=== PATIENT | male | born 1970 ===

== ENCOUNTER 2016-10-21 11:14 | Observation (INO) | payer OTHER ==
[2016-10-21 11:16] VITALS: BMI 29.0
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
[2016-10-21 12:58] LABS: BASO # 0.1 K/uL (0.0-0.2); BASO % 0.9 % (0.0-2.0); EOS # 0.1 K/uL (0.0-0.7); EOS % 2.2 % (0.0-4.0); HEMATOCRIT 38.3 % (35.0-51.0); LYMPH # 1.7 K/uL (1.0-4.3); LYMPH % 25.6 % (20.0-40.0); MEAN CELL VOLUME 96.7 fL (80.0-94.0); MEAN CORPUSCULAR HEMOGLOBIN 31.7 pg (27.0-31.0); MEAN CORPUSCULAR HGB CONC 32.8 g/dL (33.0-37.0); MEAN PLATELET VOLUME 7.9 fL (7.2-11.7); MONO # 0.5 K/uL (0.0-0.8); MONO % 7.4 % (0.0-10.0); NRBC % 0.1 % (0.0-2.0); RED CELL DISTRIBUTION WIDTH 14.7 % (11.5-14.5); WHITE BLOOD COUNT 6.6 K/uL (4.8-10.8)
[2016-10-21 13:10] LABS: CHLORIDE 88 mmol/L (98-107); POTASSIUM 3.8 mmol/L (3.6-5.2); SODIUM 135 mmol/L (132-148)
[2016-10-21 13:12] LABS: ALB/GLOB RATIO 1.1 (1.0-2.1); AST/SGOT 31 U/L (17-59); BILIRUBIN,TOTAL 0.9 mg/dL (0.2-1.3); CARBON DIOXIDE 30 mmol/L (22-30); GFR AFRICAN-AMERICAN 8; TOTAL PROTEIN 8.5 g/dL (6.3-8.3)
[2016-10-21 13:13] LABS: ALKALINE PHOSPHATASE 81 U/L (38-126); ALT/SGPT 19 U/L (21-72); BLOOD UREA NITROGEN 38 mg/dL (9-20); GLUCOSE,RANDOM 79 mg/dL (75-110)
--- NOTE | 2016-10-21 13:39 | RAD ---
HISTORY: abd pain COMPARISON: Comparison is made to previous study dated 08/05/2016 TECHNIQUE: Chest PA and lateral FINDINGS: LUNGS: No active pulmonary disease. PLEURA: No significant pleural effusion identified. No pneumothorax apparent. CARDIOVASCULAR: Normal. OSSEOUS STRUCTURES: No significant abnormalities. VISUALIZED UPPER ABDOMEN: Normal. OTHER FINDINGS: None. IMPRESSION: No active disease.
[2016-10-21] MEDS ORDERED: Bacitracin 500 Units/gm Oint Foilpak UD TOP ONE (14:08)
--- NOTE | 2016-10-21 15:18 | US ---
Abdominal ultrasound History: Abdominal pain. Comparison: Renal ultrasound dated 08/05/2016 Technique: Real-time sonography was performed through the abdomen. Findings: Liver: 12.6 centimeters in length. Increased echogenicity suggestive for fatty infiltration versus hepatic parenchymal disease. Gallbladder: Within normal limits. Normal wall thickness of 2.7 millimeters. Common bile duct measures 4 millimeters, within normal limits. Pancreas not well visualized. Heterogeneous appearance of the pancreas. Pancreatic tail not well visualized. Spleen measures 12.2 centimeters in length, within normal limits. Visualized aorta and IVC are preserved. Right kidney: Enlarged measuring 19.0 x 10.1 x 11.3 centimeters. Severe hydronephrosis with cortical parenchymal thinning noted. In comparison to the prior studies, there is a persistent prominent calculus/staghorn calculus seen in the midpole of the right kidney measuring up to 1.9 centimeters. Additional calculi measure up to 1.[address] scan may be helpful if clinically indicated. Left Kidney: Prior nephrectomy. Impression: Enlargement of the right kidney measuring up to 19 centimeters with associated severe hydronephrosis and cortical parenchymal thinning. In comparison to the prior study, there are persistent prominent calculi/staghorn calculi present as described above. Correlation with CT scan may be helpful if clinically indicated. Diffuse increased echogenicity of the hepatic parenchyma suggestive for hepatic parenchymal disease versus fatty infiltration. Clinical correlation. Pancreas not well visualized. Clinical correlation. Prior left nephrectomy.
[2016-10-21 16:17] VITALS: RESP 20
[2016-10-21] MEDS: Oxycodone/Acetaminophen 5/325 mg Tab PO PRN (18:46)
[2016-10-21] MEDS: oxyCODONE 20 mg ER Tab (oxyCONTIN) PO SCH (21:54)
[2016-10-22] MEDS: Oxycodone/Acetaminophen 5/325 mg Tab PO PRN ×2 (05:09→14:15)
[2016-10-22] MEDS: oxyCODONE 20 mg ER Tab (oxyCONTIN) PO SCH (09:24)
[2016-10-22] MEDS ORDERED: NIFEdipine 60 mg ER Tab PO SCH (10:00)
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
[2016-10-22 13:43] VITALS: O2SAT 96
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
[2016-10-22 16:05] VITALS: BP 123/68; PULSE 76; TEMP 98.6
--- NOTE | 2016-10-22 16:57 | CP.PCM.PN ---
Subjective - Date & Time of Evaluation Date of Evaluation: 10/22/16 Time of Evaluation: 11:00 - Subjective Subjective: Alert and oriented x3, NAD. Objective - Vital Signs/Intake and Output Vital Signs (last 24 hours): Temp Pulse Resp BP Pulse Ox 98.6 F 76 20 123/68 96 10/22/16 16:04 10/22/16 16:04 10/22/16 16:04 10/22/16 16:04 10/22/16 16:04 - Medications Medications: Current Medications Heparin Sodium (Porcine) (Heparin) 5,000 units SC Q12 [facility] Last Admin: 10/22/16 10:00 Dose: Not Given Oxycodone HCl (Oxycontin Extended Release Tab) 20 mg PO Q12 [facility] Last Admin: 10/22/16 09:24 Dose: 20 mg Oxycodone/Acetaminophen (Percocet 5/325 Mg Tab) 1 tab PO Q6H PRN PRN Reason: Pain, moderate (4-7) Stop: 10/24/16 17:09 Last Admin: 10/22/16 14:15 Dose: 1 tab Sevelamer Carbonate (Renvela) 2,400 mg PO TID [facility] Last Admin: 10/22/16 14:13 Dose: 2,400 mg Tamsulosin HCl (Flomax) 0.4 mg PO DAILY [facility] Last Admin: 10/22/16 10:00 Dose: Not Given Assessment and Plan - Assessment and Plan (Free Text) Assessment: Patient is seen and examined, no sob or chest pains, no acute distress. Seen by DR Marc, cleared for discharge home today. Added percocet and neurontin for pain management. T follow up in the office in 1 week.
--- NOTE | 2016-10-22 17:34 | CP.PCM.PN ---
Subjective - Date & Time of Evaluation Date of Evaluation: 10/22/16 Time of Evaluation: 10:43 - Subjective Subjective: pt was seen and examined, feels better, decreased pain. Objective - Vital Signs/Intake and Output Vital Signs (last 24 hours): Temp Pulse Resp BP Pulse Ox 98.6 F 76 20 123/68 96 10/22/16 16:04 10/22/16 16:04 10/22/16 16:04 10/22/16 16:04 10/22/16 16:04 - Medications Medications: Current Medications Heparin Sodium (Porcine) (Heparin) 5,000 units SC Q12 [facility] Last Admin: 10/22/16 10:00 Dose: Not Given Oxycodone HCl (Oxycontin Extended Release Tab) 20 mg PO Q12 [facility] Last Admin: 10/22/16 09:24 Dose: 20 mg Oxycodone/Acetaminophen (Percocet 5/325 Mg Tab) 1 tab PO Q6H PRN PRN Reason: Pain, moderate (4-7) Stop: 10/24/16 17:09 Last Admin: 10/22/16 14:15 Dose: 1 tab Sevelamer Carbonate (Renvela) 2,400 mg PO TID [facility] Last Admin: 10/22/16 14:13 Dose: 2,400 mg Tamsulosin HCl (Flomax) 0.4 mg PO DAILY [facility] Last Admin: 10/22/16 10:00 Dose: Not Given - Constitutional Appears: No Acute Distress - Head Exam Head Exam: ATRAUMATIC, NORMAL INSPECTION, NORMOCEPHALIC - Eye Exam Eye Exam: EOMI, Normal appearance, PERRL Pupil Exam: NORMAL ACCOMODATION, PERRL - Respiratory Exam Respiratory Exam: Clear to Ausculation Bilateral, NORMAL BREATHING PATTERN - Cardiovascular Exam Cardiovascular Exam: REGULAR RHYTHM, +S1, +S2. absent: Murmur Assessment and Plan (1) Gastroenteritis Status: Acute (2) Abdominal pain Status: Acute (3) Dizziness Status: Acute (4) Hepatitis C antibody positive in blood Status: Chronic - Assessment and Plan (Free Text) Plan: plan for discharge no etiology of back pain determined
--- NOTE | 2016-10-25 19:12 | CARD ---
APPROVED REPORT EKG Measurement Heart [id number] <Conclusion> Poor data quality, interpretation may be adversely affected Normal sinus rhythm Normal ECG
== END 2016-10-22 18:39 | disposition home or self-care (01) ==
LOC: C.ER 11:14 → C.6T 15:44
PROVIDERS: ADMIT Internal Medicine; ATTEND Internal Medicine
DX: K52.9 Noninfective gastroenteritis and colitis, unspecified (principal); R11.2 Nausea with vomiting, unspecified; N18.6 End stage renal disease; E21.3 Hyperparathyroidism, unspecified; Z87.442 Personal history of urinary calculi
CPT/HCPCS: 36415; 71020; 76700; 80053; 83690; 84484; 85025; 86705; 86706; 87340; 96374; 99285; G0378

== ENCOUNTER 2017-04-19 19:38 | Inpatient (IN) | payer OTHER ==
[2017-04-19 19:38] VITALS: BMI 29.0
[2017-04-19 20:18] LABS: RBC URINE 37 /hpf (0-3); URINE BACTERIA MOD (<OCC); URINE BILIRUBIN NEGATIVE (NEGATIVE); URINE BLOOD 2+ (NEGATIVE); URINE COLOR Yellow (YELLOW); URINE GLUCOSE (UA) NORMAL (Normal); URINE KETONE NEGATIVE (NEGATIVE); URINE LEUKOCYTE ESTERASE 3+ Leu/uL (Negative); URINE PROTEIN 2+ mg/dL (NEGATIVE); URINE UROBILINOGEN NORMAL mg/dL (0.2-1.0); WBC URINE 1129 /hpf (0-5)
[2017-04-19] MEDS ORDERED: cefTRIAXone IV 1 gm in Dextros 50 ML IVPB ONE (20:28)
[2017-04-19 20:50] LABS: BASO # 0.1 K/uL (0.0-0.2); BASO % 0.9 % (0.0-2.0); EOS # 0.2 K/uL (0.0-0.7); EOS % 3.6 % (0.0-4.0); HEMATOCRIT 30.1 % (35.0-51.0); LYMPH # 1.8 K/uL (1.0-4.3); LYMPH % 32.1 % (20.0-40.0); MEAN CELL VOLUME 93.5 fL (80.0-94.0); MEAN CORPUSCULAR HEMOGLOBIN 30.8 pg (27.0-31.0); MEAN PLATELET VOLUME 6.9 fL (7.2-11.7); MONO # 0.5 K/uL (0.0-0.8); MONO % 9.2 % (0.0-10.0); RED CELL DISTRIBUTION WIDTH 14.4 % (11.5-14.5); WHITE BLOOD COUNT 5.5 K/uL (4.8-10.8)
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
[2017-04-19 20:59] LABS: POTASSIUM 4.2 mmol/L (3.6-5.2)
[2017-04-19 21:02] LABS: BILIRUBIN,TOTAL 0.9 mg/dL (0.2-1.3); CALCIUM 8.7 mg/dl (8.6-10.4); TOTAL PROTEIN 7.2 g/dL (6.3-8.3)
[2017-04-19] MEDS ORDERED: Oxycodone/Acetaminophen 5/325 mg Tab PO STA (23:26)
[2017-04-19] MEDS ORDERED: Oxycodone/Acetaminophen 5/325 mg Tab ONE (23:30)
[2017-04-20] MEDS: Oxycodone/Acetaminophen 5/325 mg Tab PO PRN ×3 (05:24→19:56)
[2017-04-20] MEDS: Pantoprazole 40 mg EC Tab PO SCH (10:12)
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
[2017-04-20 17:54] LABS: POTASSIUM 4.5 mmol/L (3.6-5.2)
[2017-04-20 17:57] LABS: CALCIUM 8.6 mg/dl (8.6-10.4); PHOSPHOROUS 9.2 mg/dL (2.5-4.5)
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
[2017-04-21] MEDS: Oxycodone/Acetaminophen 5/325 mg Tab PO PRN ×3 (08:19→21:29)
[2017-04-21] MEDS: Pantoprazole 40 mg EC Tab PO SCH (10:12)
--- NOTE | 2017-04-21 15:29 | CP.PCM.PN ---
Subjective - Date & Time of Evaluation Date of Evaluation: 04/21/17 Time of Evaluation: 15:27 - Subjective Subjective: stable dialysis 04/20- UF 2000 ml phos very elevated no fevers, chills, n, v, diarrhea. CPs, SOB no new events tolerating dialysis Objective - Vital Signs/Intake and Output Vital Signs (last 24 hours): Temp Pulse Resp BP Pulse Ox 98.2 F 71 20 141/63 96 04/21/17 08:03 04/21/17 08:03 04/21/17 08:03 04/21/17 08:03 04/21/17 08:03 Intake and Output: 04/21/17 04/21/17 06:59 18:59 Intake Total 250 0 Balance 250 0 - Medications Medications: Current Medications Calcium Acetate (Phoslo) 1,334 mg PO TID [facility] Heparin Sodium (Porcine) (Heparin) 5,000 units SC Q8 [facility] Last Admin: 04/21/17 14:34 Dose: 5,000 units Ceftriaxone Sodium 1 gm/ (Dextrose) 100 mls @ 100 mls/hr IVPB DAILY [facility] Last Admin: 04/21/17 10:12 Dose: 100 mls/hr Ondansetron HCl (Zofran Inj) 4 mg IVP Q8H PRN PRN Reason: Nausea/Vomiting Last Admin: 04/20/17 18:03 Dose: 4 mg Oxycodone/Acetaminophen (Percocet 5/325 Mg Tab) 2 tab PO Q4 PRN PRN Reason: pain Stop: 04/23/17 12:01 Last Admin: 04/21/17 08:19 Dose: 2 tab Pantoprazole Sodium (Protonix Ec Tab) 40 mg PO DAILY [facility] Last Admin: 04/21/17 10:12 Dose: 40 mg Sevelamer Carbonate (Renvela) 1,600 mg PO TID [facility] Last Admin: 04/21/17 14:34 Dose: 1,600 mg Tamsulosin HCl (Flomax) 0.4 mg PO DAILY [facility] Last Admin: 04/21/17 10:12 Dose: 0.4 mg - Labs Labs: 04/19/17 20:42 04/20/17 17:43 - Constitutional Appears: No Acute Distress, Chronically Ill - Head Exam Head Exam: ATRAUMATIC, NORMAL INSPECTION - Eye Exam Eye Exam: EOMI, Normal appearance - Neck Exam Neck Exam: Normal Inspection. absent: Tenderness - Respiratory Exam Respiratory Exam: Clear to Ausculation Bilateral, NORMAL BREATHING PATTERN - Cardiovascular Exam Cardiovascular Exam: REGULAR RHYTHM, +S1 - GI/Abdominal Exam GI & Abdominal Exam: Soft. absent: Tenderness - Extremities Exam Extremities Exam: Normal Inspection. absent: Tenderness - Neurological Exam Neurological Exam: Alert, CN II-XII Intact - Skin Skin Exam: Dry, Warm Assessment and Plan (1) Xanthogranulomatous pyelonephritis Status: Acute (2) Hepatitis C antibody positive in blood Status: Chronic (3) ESRD (end stage renal disease) Status: Acute - Assessment and Plan (Free Text) Plan: Continue same dialysis TTS IV ABs Increase binders
--- NOTE | 2017-04-21 21:57 | CP.PCM.PN ---
Subjective - Date & Time of Evaluation Date of Evaluation: 04/21/17 Time of Evaluation: 20:00 - Subjective Subjective: Pt seen and examined, urine analysis was positive for gram neg bacilli, waiting for sensitivity report, meantime he is on rocephin.c/o flank pain however no nausea/vomiting Objective - Vital Signs/Intake and Output Vital Signs (last 24 hours): Temp Pulse Resp BP Pulse Ox 98.4 F 61 20 131/64 97 04/21/17 15:00 04/21/17 15:00 04/21/17 15:00 04/21/17 15:00 04/21/17 15:00 Intake and Output: 04/21/17 04/22/17 18:59 06:59 Intake Total 0 Balance 0 - Medications Medications: Current Medications Calcium Acetate (Phoslo) 1,334 mg PO TID [facility] Last Admin: 04/21/17 17:39 Dose: 1,334 mg Heparin Sodium (Porcine) (Heparin) 5,000 units SC Q8 [facility] Last Admin: 04/21/17 21:24 Dose: 5,000 units Ceftriaxone Sodium 1 gm/ (Dextrose) 100 mls @ 100 mls/hr IVPB DAILY [facility] Last Admin: 04/21/17 10:12 Dose: 100 mls/hr Ondansetron HCl (Zofran Inj) 4 mg IVP Q8H PRN PRN Reason: Nausea/Vomiting Last Admin: 04/21/17 16:47 Dose: 4 mg Oxycodone/Acetaminophen (Percocet 5/325 Mg Tab) 2 tab PO Q4 PRN PRN Reason: pain Stop: 04/23/17 12:01 Last Admin: 04/21/17 21:29 Dose: 2 tab Pantoprazole Sodium (Protonix Ec Tab) 40 mg PO DAILY [facility] Last Admin: 04/21/17 10:12 Dose: 40 mg Sevelamer Carbonate (Renvela) 1,600 mg PO TID [facility] Last Admin: 04/21/17 17:39 Dose: 1,600 mg Tamsulosin HCl (Flomax) 0.4 mg PO DAILY [facility] Last Admin: 04/21/17 10:12 Dose: 0.4 mg - Labs Labs: 04/19/17 20:42 04/20/17 17:43 - Constitutional Appears: No Acute Distress - Head Exam Head Exam: ATRAUMATIC, NORMAL INSPECTION, NORMOCEPHALIC - Eye Exam Eye Exam: EOMI, Normal appearance, PERRL Pupil Exam: NORMAL ACCOMODATION, PERRL - Respiratory Exam Respiratory Exam: Clear to Ausculation Bilateral, NORMAL BREATHING PATTERN - Cardiovascular Exam Cardiovascular Exam: REGULAR RHYTHM, +S1, +S2. absent: Murmur - GI/Abdominal Exam GI & Abdominal Exam: Soft, Normal Bowel Sounds. absent: Tenderness - Rectal Exam Rectal Exam: Deferred Assessment and Plan (1) ESRD (end stage renal disease) Status: Acute (2) Pyelonephritis, acute Status: Acute (3) Abdominal pain Status: Acute (4) CKD (chronic kidney disease) Status: Acute
[2017-04-22] MEDS: Oxycodone/Acetaminophen 5/325 mg Tab PO PRN ×3 (08:11→21:13)
[2017-04-22] MEDS ORDERED: Influenza Vaccine 60 mcg/0.5 mL SYR (4YR UP) IM ONE (10:00)
[2017-04-22] MEDS ORDERED: Pneumococcal 23-Valent Vaccine IM ONE (10:00)
[2017-04-22] MEDS: Pantoprazole 40 mg EC Tab PO SCH (10:48)
--- NOTE | 2017-04-22 11:13 | CP.PCM.PN ---
Subjective - Date & Time of Evaluation Date of Evaluation: 04/22/17 Time of Evaluation: 11:00 - Subjective Subjective: nauseated,? due to pain meds deferring HD to later in day uncooperative with questions ROS cannot be obtained due to above Objective - Vital Signs/Intake and Output Vital Signs (last 24 hours): Temp Pulse Resp BP Pulse Ox 98.4 F 69 20 147/74 98 04/22/17 07:46 04/22/17 07:46 04/22/17 07:46 04/22/17 07:46 04/22/17 07:46 Intake and Output: 04/22/17 04/22/17 06:59 18:59 Intake Total 200 Balance 200 - Medications Medications: Current Medications Calcium Acetate (Phoslo) 1,334 mg PO TID [facility] Last Admin: 04/22/17 10:48 Dose: 1,334 mg Heparin Sodium (Porcine) (Heparin) 5,000 units SC Q8 [facility] Last Admin: 04/22/17 07:00 Dose: 5,000 units Ceftriaxone Sodium 1 gm/ (Dextrose) 100 mls @ 100 mls/hr IVPB DAILY [facility] Last Admin: 04/22/17 10:51 Dose: 100 mls/hr Ondansetron HCl (Zofran Inj) 4 mg IVP Q8H PRN PRN Reason: Nausea/Vomiting Last Admin: 04/22/17 08:10 Dose: 4 mg Oxycodone/Acetaminophen (Percocet 5/325 Mg Tab) 2 tab PO Q4 PRN PRN Reason: pain Stop: 04/23/17 12:01 Last Admin: 04/22/17 08:11 Dose: 2 tab Pantoprazole Sodium (Protonix Ec Tab) 40 mg PO DAILY [facility] Last Admin: 04/22/17 10:48 Dose: 40 mg Sevelamer Carbonate (Renvela) 1,600 mg PO TID [facility] Last Admin: 04/22/17 10:48 Dose: 1,600 mg Tamsulosin HCl (Flomax) 0.4 mg PO DAILY [facility] Last Admin: 04/22/17 10:48 Dose: 0.4 mg - Labs Labs: 04/19/17 20:42 04/20/17 17:43 - Constitutional Appears: No Acute Distress, Chronically Ill - Head Exam Head Exam: ATRAUMATIC - Eye Exam Eye Exam: EOMI - Respiratory Exam Respiratory Exam: Clear to Ausculation Bilateral. absent: Accessory Muscle Use - Cardiovascular Exam Cardiovascular Exam: REGULAR RHYTHM. absent: Rubs - GI/Abdominal Exam GI & Abdominal Exam: Soft, Normal Bowel Sounds. absent: Tenderness - Extremities Exam Extremities Exam: absent: Pedal Edema - Neurological Exam Neurological Exam: Alert Assessment and Plan - Assessment and Plan (Free Text) Assessment: chronic pyelonephritis on AB HD today anti emetic being given
--- NOTE | 2017-04-22 23:31 | CP.PCM.PN ---
Subjective - Date & Time of Evaluation Date of Evaluation: 04/22/17 Time of Evaluation: 19:00 - Subjective Subjective: Pt seen and examined at bedside, nauseated,? due to pain meds deferring HD to later in day uncooperative with questions ROS cannot be obtained due to above Objective - Vital Signs/Intake and Output Vital Signs (last 24 hours): Temp Pulse Resp BP Pulse Ox 98.8 F 57 L 20 117/55 L 100 04/22/17 17:00 04/22/17 17:00 04/22/17 17:00 04/22/17 17:00 04/22/17 17:00 Intake and Output: 04/22/17 04/23/17 18:59 06:59 Intake Total 580 450 Balance 580 450 - Medications Medications: Current Medications Calcium Acetate (Phoslo) 1,334 mg PO TID [facility] Last Admin: 04/22/17 18:09 Dose: 1,334 mg Heparin Sodium (Porcine) (Heparin) 5,000 units SC Q8 [facility] Last Admin: 04/22/17 21:17 Dose: 5,000 units Ceftriaxone Sodium 1 gm/ (Dextrose) 100 mls @ 100 mls/hr IVPB DAILY [facility] Last Admin: 04/22/17 10:51 Dose: 100 mls/hr Ondansetron HCl (Zofran Inj) 4 mg IVP Q8H PRN PRN Reason: Nausea/Vomiting Last Admin: 04/22/17 08:10 Dose: 4 mg Oxycodone/Acetaminophen (Percocet 5/325 Mg Tab) 2 tab PO Q4 PRN PRN Reason: pain Stop: 04/23/17 12:01 Last Admin: 04/22/17 21:13 Dose: 2 tab Pantoprazole Sodium (Protonix Ec Tab) 40 mg PO DAILY [facility] Last Admin: 04/22/17 10:48 Dose: 40 mg Sevelamer Carbonate (Renvela) 1,600 mg PO TID [facility] Last Admin: 04/22/17 18:09 Dose: 1,600 mg Tamsulosin HCl (Flomax) 0.4 mg PO DAILY [facility] Last Admin: 04/22/17 10:48 Dose: 0.4 mg - Labs Labs: 04/19/17 20:42 04/20/17 17:43 Assessment and Plan (1) ESRD (end stage renal disease) Status: Acute (2) Pyelonephritis, acute Status: Acute (3) Abdominal pain Status: Acute (4) CKD (chronic kidney disease) Status: Acute
[2017-04-23] MEDS: Oxycodone/Acetaminophen 5/325 mg Tab PO PRN ×3 (10:05→20:27)
[2017-04-23] MEDS: Pantoprazole 40 mg EC Tab PO SCH (10:07)
--- NOTE | 2017-04-23 23:38 | CP.PCM.PN ---
Subjective - Date & Time of Evaluation Date of Evaluation: 04/23/17 Time of Evaluation: 19:00 - Subjective Subjective: Pt seen & examined at bedside, still c/o flank pain Objective - Vital Signs/Intake and Output Vital Signs (last 24 hours): Temp Pulse Resp BP Pulse Ox 97.9 F 65 20 129/55 L 96 04/23/17 15:00 04/23/17 15:00 04/23/17 15:00 04/23/17 15:00 04/23/17 15:00 Intake and Output: 04/23/17 04/24/17 18:59 06:59 Intake Total 580 400 Balance 580 400 - Medications Medications: Current Medications Calcium Acetate (Phoslo) 1,334 mg PO TID [facility] Last Admin: 04/23/17 18:35 Dose: 1,334 mg Ondansetron HCl (Zofran Inj) 4 mg IVP Q8H PRN PRN Reason: Nausea/Vomiting Last Admin: 04/23/17 17:41 Dose: 4 mg Oxycodone/Acetaminophen (Percocet 5/325 Mg Tab) 2 tab PO Q4H PRN PRN Reason: Pain, moderate (4-7) Stop: 04/26/17 16:14 Last Admin: 04/23/17 20:27 Dose: 2 tab Pantoprazole Sodium (Protonix Ec Tab) 40 mg PO DAILY [facility] Last Admin: 04/23/17 10:07 Dose: 40 mg Sevelamer Carbonate (Renvela) 1,600 mg PO TID [facility] Last Admin: 04/23/17 18:35 Dose: 1,600 mg Tamsulosin HCl (Flomax) 0.4 mg PO DAILY [facility] Last Admin: 04/23/17 10:08 Dose: 0.4 mg - Labs Labs: 04/19/17 20:42 04/20/17 17:43 Assessment and Plan (1) ESRD (end stage renal disease) Status: Acute (2) Pyelonephritis, acute Status: Acute (3) Abdominal pain Status: Acute (4) CKD (chronic kidney disease) Status: Acute
[2017-04-24] MEDS: Oxycodone/Acetaminophen 5/325 mg Tab PO PRN ×5 (00:35→21:52)
[2017-04-24] MEDS: Pantoprazole 40 mg EC Tab PO SCH (09:32)
--- NOTE | 2017-04-24 11:53 | CP.PCM.PN ---
Subjective - Date & Time of Evaluation Date of Evaluation: 04/24/17 Time of Evaluation: 11:50 - Subjective Subjective: Still c/o nausea, likely from pain meds Remains afebrile. Offering new complaints phos has been high- on high doses binders dialysis due in AM Objective - Vital Signs/Intake and Output Vital Signs (last 24 hours): Temp Pulse Resp BP Pulse Ox 98 F 64 20 124/60 97 04/24/17 07:35 04/24/17 07:35 04/24/17 07:35 04/24/17 07:35 04/24/17 07:35 Intake and Output: 04/24/17 04/24/17 06:59 18:59 Intake Total 700 Balance 700 - Medications Medications: Current Medications Calcium Acetate (Phoslo) 1,334 mg PO TID [facility] Last Admin: 04/24/17 09:32 Dose: 1,334 mg Ondansetron HCl (Zofran Inj) 4 mg IVP Q8H PRN PRN Reason: Nausea/Vomiting Last Admin: 04/23/17 17:41 Dose: 4 mg Oxycodone/Acetaminophen (Percocet 5/325 Mg Tab) 2 tab PO Q4H PRN PRN Reason: Pain, moderate (4-7) Stop: 04/26/17 16:14 Last Admin: 04/24/17 08:11 Dose: 2 tab Pantoprazole Sodium (Protonix Ec Tab) 40 mg PO DAILY [facility] Last Admin: 04/24/17 09:32 Dose: 40 mg Sevelamer Carbonate (Renvela) 1,600 mg PO TID [facility] Last Admin: 04/24/17 09:32 Dose: 1,600 mg Tamsulosin HCl (Flomax) 0.4 mg PO DAILY [facility] Last Admin: 04/24/17 09:32 Dose: 0.4 mg - Labs Labs: 04/19/17 20:42 04/20/17 17:43 - Constitutional Appears: No Acute Distress, Chronically Ill - Head Exam Head Exam: ATRAUMATIC, NORMAL INSPECTION - Eye Exam Eye Exam: EOMI, Normal appearance - Neck Exam Neck Exam: Normal Inspection. absent: Tenderness - Respiratory Exam Respiratory Exam: Clear to Ausculation Bilateral, NORMAL BREATHING PATTERN - Cardiovascular Exam Cardiovascular Exam: REGULAR RHYTHM, +S1 - GI/Abdominal Exam GI & Abdominal Exam: Soft. absent: Tenderness - Extremities Exam Extremities Exam: Normal Inspection. absent: Tenderness - Neurological Exam Neurological Exam: Alert, CN II-XII Intact - Psychiatric Exam Psychiatric exam: Depressed, Flat Affect - Skin Skin Exam: Dry, Warm Assessment and Plan (1) Xanthogranulomatous pyelonephritis Status: Acute (2) Hepatitis C antibody positive in blood Status: Chronic (3) ESRD (end stage renal disease) Status: Acute - Assessment and Plan (Free Text) Plan: Recheck chemistries dialysis in AM zofran prn
[2017-04-24] MEDS: Bisacodyl 5mg EC Tab PO SCH (21:54)
--- NOTE | 2017-04-24 22:32 | CP.PCM.PN ---
Subjective - Date & Time of Evaluation Date of Evaluation: 04/24/17 Time of Evaluation: 21:00 - Subjective Subjective: Pt seen and examined, c/o flank pain, and cloudy urine, cultures are positive sensitivity pending .pt is for Ct abdomen and urology consult Objective - Vital Signs/Intake and Output Vital Signs (last 24 hours): Temp Pulse Resp BP Pulse Ox 98.2 F 62 20 126/70 98 04/24/17 15:00 04/24/17 15:00 04/24/17 15:00 04/24/17 15:00 04/24/17 15:00 Intake and Output: 04/24/17 04/25/17 18:59 06:59 Intake Total 500 Balance 500 - Medications Medications: Current Medications Bisacodyl (Dulcolax) 10 mg PO HS [facility] Last Admin: 04/24/17 21:54 Dose: 10 mg Calcium Acetate (Phoslo) 1,334 mg PO TID [facility] Last Admin: 04/24/17 17:27 Dose: 1,334 mg Docusate Sodium (Colace) 100 mg PO BID [facility] Last Admin: 04/24/17 17:28 Dose: 100 mg Ondansetron HCl (Zofran Inj) 4 mg IVP Q8H PRN PRN Reason: Nausea/Vomiting Last Admin: 04/24/17 17:30 Dose: 4 mg Oxycodone/Acetaminophen (Percocet 5/325 Mg Tab) 2 tab PO Q4H PRN PRN Reason: Pain, moderate (4-7) Stop: 04/26/17 16:14 Last Admin: 04/24/17 21:52 Dose: 2 tab Pantoprazole Sodium (Protonix Ec Tab) 40 mg PO DAILY [facility] Last Admin: 04/24/17 09:32 Dose: 40 mg Sevelamer Carbonate (Renvela) 1,600 mg PO TID [facility] Last Admin: 04/24/17 17:27 Dose: 1,600 mg Tamsulosin HCl (Flomax) 0.4 mg PO DAILY [facility] Last Admin: 04/24/17 09:32 Dose: 0.4 mg - Labs Labs: 04/19/17 20:42 04/20/17 17:43 - Constitutional Appears: No Acute Distress - Head Exam Head Exam: ATRAUMATIC, NORMAL INSPECTION, NORMOCEPHALIC - Respiratory Exam Respiratory Exam: Clear to Ausculation Bilateral, NORMAL BREATHING PATTERN - Cardiovascular Exam Cardiovascular Exam: REGULAR RHYTHM, +S1, +S2. absent: Murmur - GI/Abdominal Exam GI & Abdominal Exam: Soft, Normal Bowel Sounds. absent: Tenderness Assessment and Plan (1) ESRD (end stage renal disease) Status: Acute (2) Pyelonephritis, acute Status: Acute (3) Abdominal pain Status: Acute (4) CKD (chronic kidney disease) Status: Acute - Assessment and Plan (Free Text) Plan: for CT abdomen contrast uronlogy consult
[2017-04-25] MEDS: Oxycodone/Acetaminophen 5/325 mg Tab PO PRN ×4 (02:20→19:22)
[2017-04-25 08:27] LABS: POTASSIUM 4.8 mmol/L (3.6-5.2)
[2017-04-25 08:30] LABS: ALB/GLOB RATIO 1.1 (1.0-2.1); BASO # 0.1 K/uL (0.0-0.2); BASO % 1.2 % (0.0-2.0); BILIRUBIN,TOTAL 0.6 mg/dL (0.2-1.3); EOS # 0.3 K/uL (0.0-0.7); EOS % 5.5 % (0.0-4.0); HEMATOCRIT 30.6 % (35.0-51.0); LYMPH # 1.8 K/uL (1.0-4.3); LYMPH % 33.7 % (20.0-40.0); MEAN CELL VOLUME 93.9 fL (80.0-94.0); MEAN CORPUSCULAR HEMOGLOBIN 31.2 pg (27.0-31.0); MEAN CORPUSCULAR HGB CONC 33.2 g/dL (33.0-37.0); MEAN PLATELET VOLUME 7.8 fL (7.2-11.7); MONO # 0.4 K/uL (0.0-0.8); MONO % 7.4 % (0.0-10.0); NRBC % 0.1 % (0.0-2.0); PHOSPHOROUS 6.2 mg/dL (2.5-4.5); RED CELL DISTRIBUTION WIDTH 14.4 % (11.5-14.5); TOTAL PROTEIN 6.5 g/dL (6.3-8.3); WHITE BLOOD COUNT 5.2 K/uL (4.8-10.8)
[2017-04-25 08:31] LABS: CALCIUM 8.9 mg/dl (8.6-10.4)
[2017-04-25 08:32] LABS: RBC URINE 55 /hpf (0-3); URINE BACTERIA RARE (<OCC); URINE BILIRUBIN NEGATIVE (NEGATIVE); URINE BLOOD 2+ (NEGATIVE); URINE COLOR Yellow (YELLOW); URINE GLUCOSE (UA) NORMAL (Normal); URINE KETONE NEGATIVE (NEGATIVE); URINE LEUKOCYTE ESTERASE 3+ Leu/uL (Negative); URINE PROTEIN 2+ mg/dL (NEGATIVE); URINE UROBILINOGEN NORMAL mg/dL (0.2-1.0); WBC CLUMPS FEW /hpf; WBC URINE 471 /hpf (0-5)
[2017-04-25] MEDS ORDERED: Iohexol 240 (50 ml) PO ONE (09:00)
--- NOTE | 2017-04-25 11:05 | CP.PCM.PN ---
Subjective - Date & Time of Evaluation Date of Evaluation: 04/25/17 Time of Evaluation: 11:04 - Subjective Subjective: seen and examined c/o pain left flank c/o cramping after last dialysis +nausea no vomiting no fevers chills dizziness headache chest pain sob "fuzzy" urine Objective - Vital Signs/Intake and Output Vital Signs (last 24 hours): Temp Pulse Resp BP Pulse Ox 97.9 F 69 20 132/64 96 04/24/17 23:40 04/24/17 23:40 04/24/17 23:40 04/24/17 23:40 04/24/17 23:40 Intake and Output: 04/25/17 04/25/17 06:59 18:59 Intake Total 300 1740 Balance 300 1740 - Medications Medications: Current Medications Bisacodyl (Dulcolax) 10 mg PO HS [facility] Last Admin: 04/24/17 21:54 Dose: 10 mg Calcium Acetate (Phoslo) 1,334 mg PO TID [facility] Last Admin: 04/25/17 09:14 Dose: 1,334 mg Docusate Sodium (Colace) 100 mg PO BID [facility] Last Admin: 04/25/17 09:14 Dose: 100 mg Ondansetron HCl (Zofran Inj) 4 mg IVP Q8H PRN PRN Reason: Nausea/Vomiting Last Admin: 04/24/17 17:30 Dose: 4 mg Oxycodone/Acetaminophen (Percocet 5/325 Mg Tab) 2 tab PO Q4H PRN PRN Reason: Pain, moderate (4-7) Stop: 04/26/17 16:14 Last Admin: 04/25/17 06:59 Dose: 2 tab Pantoprazole Sodium (Protonix Ec Tab) 40 mg PO DAILY [facility] Last Admin: 04/24/17 09:32 Dose: 40 mg Sevelamer Carbonate (Renvela) 1,600 mg PO TID [facility] Last Admin: 04/25/17 09:14 Dose: 1,600 mg Tamsulosin HCl (Flomax) 0.4 mg PO DAILY [facility] Last Admin: 04/25/17 09:14 Dose: 0.4 mg - Labs Labs: 04/25/17 08:09 04/25/17 08:09 - Constitutional Appears: Non-toxic, No Acute Distress - Head Exam Head Exam: NORMAL INSPECTION - Eye Exam Eye Exam: Normal appearance, PERRL - ENT Exam ENT Exam: Mucous Membranes Moist, Normal Exam - Neck Exam Neck Exam: Normal Inspection - Respiratory Exam Respiratory Exam: Clear to Ausculation Bilateral, NORMAL BREATHING PATTERN - Cardiovascular Exam Cardiovascular Exam: REGULAR RHYTHM, RRR - GI/Abdominal Exam GI & Abdominal Exam: Distended, Soft, Normal Bowel Sounds - Extremities Exam Extremities Exam: Normal Inspection (lue avf w/ thrill) - Neurological Exam Neurological Exam: Alert, Awake, Normal Gait, Oriented x3 - Psychiatric Exam Psychiatric exam: Normal Affect, Normal Mood - Skin Skin Exam: Dry, Warm Assessment and Plan (1) Hyperphosphatemia Status: Acute (2) ESRD (end stage renal disease) Status: Acute (3) Xanthogranulomatous pyelonephritis Status: Acute (4) Abdominal pain Status: Acute (5) Calculus of kidney Status: Chronic (6) Hepatitis C antibody positive in blood Status: Chronic (7) Urinary tract infection Status: Suspected - Assessment and Plan (Free Text) Assessment: maintain hd tts renal diet and binders bp acceptable pain control hgb at goal f/u ct scan abdomen
[2017-04-25] MEDS: Pantoprazole 40 mg EC Tab PO SCH (11:12)
--- NOTE | 2017-04-25 13:33 | CT ---
PROCEDURE: CT Abdomen and Pelvis without IV contrast. HISTORY: nephrolithiasis COMPARISON: CT angio chest, pelvis performed 08/05/16, abdominal ultrasound performed 10/21/16 TECHNIQUE: Contiguous axial images of the abdomen and pelvis. Oral contrast was administered. No IV contrast given. Coronal and Sagittal reformats generated and reviewed. Radiation dose: Total exam DLP = 556.92 mGy-cm. This CT exam was performed using one or more of the following dose reduction techniques: Automated exposure control, adjustment of the mA and/or kV according to patient size, and/or use of iterative reconstruction technique. FINDINGS: There is limited evaluation of the solid organs without the administration of IV contrast. LOWER THORAX: Left basilar atelectasis. There is no visible pleural effusion or pneumothorax. LIVER: Unremarkable unenhanced appearance. GALLBLADDER AND BILE DUCTS: Unremarkable unenhanced appearance. PANCREAS: Unremarkable unenhanced appearance. SPLEEN: Unremarkable unenhanced appearance. ADRENALS: Unremarkable unenhanced appearance. KIDNEYS AND URETERS: Severe right-sided hydronephrosis. Large staghorn calculus measures approximately 3.2 x 4.1 cm. Additional calculus measuring approximately 12 mm. Several smaller calcifications are noted. The left kidney is not identified. BLADDER: Under distended urinary bladder limits evaluation. REPRODUCTIVE: Unremarkable. APPENDIX: The appendix appears within normal limits of caliber. No secondary signs of acute appendicitis. BOWEL: Ingested debris within the stomach limits evaluation. The bowel loops appear within normal limits of caliber without evidence of intestinal obstruction. Moderate to severe constipation. PERITONEUM: No significant free fluid. No definite free air. LYMPH NODES: No bulky lymphadenopathy identified. VASCULATURE: Atherosclerotic calcifications of the aorta and branches. No aortic aneurysm. BONES: Chronic appearing deformity and heterotopic ossification involving the right acetabulum and ischial tuberosity likely related to remote trauma. Nonspecific sclerotic focus within the right ileum. OTHER FINDINGS: None. IMPRESSION: Severe right-sided hydronephrosis. Large staghorn calculus measures approximately 3.2 x 4.1 cm. Additional calculus measuring approximately 12 mm. Several smaller calcifications are noted. The left kidney is not identified. Moderate to severe constipation.
[2017-04-25] MEDS ORDERED: Piperacill/Tazo 2.25gm in Dex 2.25 GM/50 ML BAG IVPB STA (19:33)
[2017-04-25] MEDS ORDERED: Piperacill/Tazo 2.25gm in Dex 2.25 GM/50 ML BAG IVPB SCH (19:45)
[2017-04-25] MEDS: Bisacodyl 5mg EC Tab PO SCH (21:39)
--- NOTE | 2017-04-25 23:06 | CP.PCM.PN ---
Subjective - Date & Time of Evaluation Date of Evaluation: 04/25/17 Time of Evaluation: 19:00 - Subjective Subjective: pt seen and examined,weak and lethargic, afebrile still complains of flank pain , acute pyenephrosis, obtain CT abdomen and pelvis and request ID eval Objective - Vital Signs/Intake and Output Vital Signs (last 24 hours): Temp Pulse Resp BP Pulse Ox 97.8 F 67 20 128/68 97 04/25/17 18:40 04/25/17 18:40 04/25/17 18:40 04/25/17 18:40 04/25/17 18:40 Intake and Output: 04/25/17 04/26/17 18:59 06:59 Intake Total 1740 Balance 1740 - Medications Medications: Current Medications Bisacodyl (Dulcolax) 10 mg PO HS [facility] Last Admin: 04/25/17 21:39 Dose: 10 mg Calcium Acetate (Phoslo) 1,334 mg PO TID [facility] Last Admin: 04/25/17 19:20 Dose: 1,334 mg Docusate Sodium (Colace) 100 mg PO BID [facility] Last Admin: 04/25/17 19:20 Dose: 100 mg Piperacillin Sod/Tazobactam Sod (Zosyn 2.25 Gm Iv Premix) 2.25 gm in 50 mls @ 100 mls/hr IVPB Q6H [facility] Ondansetron HCl (Zofran Inj) 4 mg IVP Q8H PRN PRN Reason: Nausea/Vomiting Last Admin: 04/24/17 17:30 Dose: 4 mg Oxycodone/Acetaminophen (Percocet 5/325 Mg Tab) 2 tab PO Q4H PRN PRN Reason: Pain, moderate (4-7) Stop: 04/26/17 16:14 Last Admin: 04/25/17 19:22 Dose: 2 tab Pantoprazole Sodium (Protonix Ec Tab) 40 mg PO DAILY [facility] Last Admin: 04/25/17 11:12 Dose: 40 mg Sevelamer Carbonate (Renvela) 1,600 mg PO TID [facility] Last Admin: 04/25/17 19:19 Dose: 1,600 mg Tamsulosin HCl (Flomax) 0.4 mg PO DAILY [facility] Last Admin: 04/25/17 09:14 Dose: 0.4 mg - Labs Labs: 04/25/17 08:09 04/25/17 08:09 - Constitutional Appears: No Acute Distress - Head Exam Head Exam: ATRAUMATIC, NORMAL INSPECTION, NORMOCEPHALIC - Eye Exam Eye Exam: EOMI, Normal appearance, PERRL Pupil Exam: NORMAL ACCOMODATION, PERRL - Respiratory Exam Respiratory Exam: Clear to Ausculation Bilateral, NORMAL BREATHING PATTERN - Cardiovascular Exam Cardiovascular Exam: +S1, +S2 - GI/Abdominal Exam GI & Abdominal Exam: Tenderness - Rectal Exam Rectal Exam: Deferred Assessment and Plan (1) ESRD (end stage renal disease) Status: Acute (2) Pyelonephritis, acute Status: Acute (3) Abdominal pain Status: Acute (4) CKD (chronic kidney disease) Status: Acute
[2017-04-26] MEDS: Oxycodone/Acetaminophen 5/325 mg Tab PO PRN ×4 (00:41→19:20)
[2017-04-26] MEDS: Piperacill/Tazo 2.25gm in Dex 2.25 GM/50 ML BAG IVPB SCH ×3 (01:17→14:14)
[2017-04-26] MEDS: Pantoprazole 40 mg EC Tab PO SCH (10:02)
--- NOTE | 2017-04-26 12:57 | CP.PCM.PN ---
Subjective - Date & Time of Evaluation Date of Evaluation: 04/26/17 Time of Evaluation: 12:54 - Subjective Subjective: stable dialysis 04/25- UF 1000ml; tolerating dialysis course well same left CVAT CT scan shows right kidney with staghorn calculi- pain though on left same pains, nausea has been afebrile Objective - Vital Signs/Intake and Output Vital Signs (last 24 hours): Temp Pulse Resp BP Pulse Ox 97.5 F L 70 20 138/72 98 04/26/17 07:50 04/26/17 07:50 04/26/17 07:50 04/26/17 07:50 04/26/17 07:50 Intake and Output: 04/26/17 04/26/17 06:59 18:59 Intake Total 290 Balance 290 - Medications Medications: Current Medications Bisacodyl (Dulcolax) 10 mg PO HS [facility] Last Admin: 04/25/17 21:39 Dose: 10 mg Calcium Acetate (Phoslo) 1,334 mg PO TID [facility] Last Admin: 04/26/17 10:02 Dose: 1,334 mg Docusate Sodium (Colace) 100 mg PO BID [facility] Last Admin: 04/26/17 10:02 Dose: 100 mg Piperacillin Sod/Tazobactam Sod (Zosyn 2.25 Gm Iv Premix) 2.25 gm in 50 mls @ 100 mls/hr IVPB Q6H [facility] Last Admin: 04/26/17 01:17 Dose: 100 mls/hr Ondansetron HCl (Zofran Inj) 4 mg IVP Q8H PRN PRN Reason: Nausea/Vomiting Last Admin: 04/26/17 02:30 Dose: 4 mg Oxycodone/Acetaminophen (Percocet 5/325 Mg Tab) 2 tab PO Q4H PRN PRN Reason: Pain, moderate (4-7) Stop: 04/26/17 16:14 Last Admin: 04/26/17 08:12 Dose: 2 tab Pantoprazole Sodium (Protonix Ec Tab) 40 mg PO DAILY [facility] Last Admin: 04/26/17 10:02 Dose: 40 mg Sevelamer Carbonate (Renvela) 1,600 mg PO TID [facility] Last Admin: 04/26/17 10:01 Dose: 1,600 mg Tamsulosin HCl (Flomax) 0.4 mg PO DAILY [facility] Last Admin: 04/26/17 10:02 Dose: 0.4 mg - Labs Labs: 04/25/17 08:09 04/25/17 08:09 - Constitutional Appears: No Acute Distress, Chronically Ill - Head Exam Head Exam: ATRAUMATIC, NORMAL INSPECTION - Eye Exam Eye Exam: EOMI, Normal appearance - Neck Exam Neck Exam: Normal Inspection. absent: Tenderness - Respiratory Exam Respiratory Exam: Clear to Ausculation Bilateral, NORMAL BREATHING PATTERN - Cardiovascular Exam Cardiovascular Exam: REGULAR RHYTHM, +S1 - GI/Abdominal Exam GI & Abdominal Exam: Soft, Tenderness - Extremities Exam Extremities Exam: Normal Inspection. absent: Tenderness - Neurological Exam Neurological Exam: Alert, CN II-XII Intact - Skin Skin Exam: Dry, Warm Assessment and Plan (1) Xanthogranulomatous pyelonephritis Status: Acute (2) Hepatitis C antibody positive in blood Status: Chronic (3) ESRD (end stage renal disease) Status: Acute - Assessment and Plan (Free Text) Plan: Continue dialysis TTS with moderate UF goal IV ABs for pyelonephritis Monitor labs periodically
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
[2017-04-26] MEDS: Meropenem 500 MG in Sodium Chloride 0.9% 100 ML IVPB SCH (21:15)
[2017-04-26] MEDS: Bisacodyl 5mg EC Tab PO SCH (21:15)
[2017-04-26] MEDS ORDERED: Meropenem 500 MG in Dextrose 5% In Water 100 ML IVPB SCH (22:00)
--- NOTE | 2017-04-26 22:53 | CP.PCM.PN ---
Subjective - Date & Time of Evaluation Date of Evaluation: 04/26/17 Time of Evaluation: 19:40 - Subjective Subjective: pt was seen & examined by me , is feeling better, is for I and D Objective - Vital Signs/Intake and Output Vital Signs (last 24 hours): Temp Pulse Resp BP Pulse Ox 98.4 F 63 20 130/66 97 04/26/17 15:00 04/26/17 15:00 04/26/17 15:00 04/26/17 15:00 04/26/17 15:00 - Medications Medications: Current Medications Alprazolam (Xanax) 0.5 mg PO TID PRN PRN Reason: Anxiety Bisacodyl (Dulcolax) 10 mg PO HS [facility] Last Admin: 04/26/17 21:15 Dose: Not Given Calcium Acetate (Phoslo) 1,334 mg PO TID [facility] Last Admin: 04/26/17 18:07 Dose: 1,334 mg Docusate Sodium (Colace) 100 mg PO BID [facility] Last Admin: 04/26/17 18:07 Dose: 100 mg Meropenem 500 mg/ Sodium (Chloride) 100 mls @ 100 mls/hr IVPB Q12 [facility] Last Admin: 04/26/17 21:15 Dose: 100 mls/hr Ondansetron HCl (Zofran Inj) 4 mg IVP Q8H PRN PRN Reason: Nausea/Vomiting Last Admin: 04/26/17 02:30 Dose: 4 mg Oxycodone/Acetaminophen (Percocet 5/325 Mg Tab) 2 tab PO Q4H PRN PRN Reason: Pain, moderate (4-7) Stop: 04/29/17 19:02 Last Admin: 04/26/17 19:20 Dose: 2 tab Pantoprazole Sodium (Protonix Ec Tab) 40 mg PO DAILY [facility] Last Admin: 04/26/17 10:02 Dose: 40 mg Sevelamer Carbonate (Renvela) 1,600 mg PO TID [facility] Last Admin: 04/26/17 18:07 Dose: 1,600 mg Tamsulosin HCl (Flomax) 0.4 mg PO DAILY [facility] Last Admin: 04/26/17 10:02 Dose: 0.4 mg - Labs Labs: 04/25/17 08:09 04/25/17 08:09 Assessment and Plan (1) ESRD (end stage renal disease) Status: Acute (2) Pyelonephritis, acute Status: Acute (3) Abdominal pain Status: Acute (4) CKD (chronic kidney disease) Status: Acute
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
[2017-04-27] MEDS: Oxycodone/Acetaminophen 5/325 mg Tab PO PRN ×3 (04:10→17:16)
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
[2017-04-27] MEDS: Pantoprazole 40 mg EC Tab PO SCH (09:56)
--- NOTE | 2017-04-27 09:58 | CP.PCM.PN ---
Subjective - Date & Time of Evaluation Date of Evaluation: 04/27/17 Time of Evaluation: 09:56 - Subjective Subjective: for AXR now has had same pains on left flank; generalized weakness but no other complaint due for dialysis now- pt has been advised to permit full treatments- has not been allowing this remains afebrile; BP controlled on antibiotics for UTI/pyelo Objective - Vital Signs/Intake and Output Vital Signs (last 24 hours): Temp Pulse Resp BP Pulse Ox 98.0 F 60 20 133/69 97 04/27/17 07:31 04/27/17 07:31 04/27/17 07:31 04/27/17 07:31 04/27/17 07:31 Intake and Output: 04/27/17 04/27/17 06:59 18:59 Intake Total 200 Balance 200 - Medications Medications: Current Medications Alprazolam (Xanax) 0.5 mg PO TID PRN PRN Reason: Anxiety Last Admin: 04/27/17 00:21 Dose: 0.5 mg Bisacodyl (Dulcolax) 10 mg PO HS [facility] Last Admin: 04/26/17 21:15 Dose: Not Given Calcium Acetate (Phoslo) 1,334 mg PO TID [facility] Last Admin: 04/26/17 18:07 Dose: 1,334 mg Docusate Sodium (Colace) 100 mg PO BID [facility] Last Admin: 04/26/17 18:07 Dose: 100 mg Meropenem 500 mg/ Sodium (Chloride) 100 mls @ 100 mls/hr IVPB Q12 [facility] Last Admin: 04/26/17 21:15 Dose: 100 mls/hr Ondansetron HCl (Zofran Inj) 4 mg IVP Q8H PRN PRN Reason: Nausea/Vomiting Last Admin: 04/26/17 02:30 Dose: 4 mg Oxycodone/Acetaminophen (Percocet 5/325 Mg Tab) 2 tab PO Q4H PRN PRN Reason: Pain, moderate (4-7) Stop: 04/29/17 19:02 Last Admin: 04/27/17 04:10 Dose: 2 tab Pantoprazole Sodium (Protonix Ec Tab) 40 mg PO DAILY [facility] Last Admin: 04/26/17 10:02 Dose: 40 mg Sevelamer Carbonate (Renvela) 1,600 mg PO TID [facility] Last Admin: 04/26/17 18:07 Dose: 1,600 mg Tamsulosin HCl (Flomax) 0.4 mg PO DAILY [facility] Last Admin: 04/26/17 10:02 Dose: 0.4 mg - Labs Labs: 04/25/17 08:09 04/25/17 08:09 - Constitutional Appears: No Acute Distress, Chronically Ill - Head Exam Head Exam: ATRAUMATIC, NORMAL INSPECTION - Eye Exam Eye Exam: EOMI, Normal appearance - Neck Exam Neck Exam: Normal Inspection. absent: Tenderness - Respiratory Exam Respiratory Exam: Clear to Ausculation Bilateral, NORMAL BREATHING PATTERN - Cardiovascular Exam Cardiovascular Exam: REGULAR RHYTHM, +S1 - GI/Abdominal Exam GI & Abdominal Exam: Soft, Tenderness - Extremities Exam Extremities Exam: Normal Inspection. absent: Tenderness - Neurological Exam Neurological Exam: Alert, CN II-XII Intact - Skin Skin Exam: Dry, Warm Assessment and Plan (1) Xanthogranulomatous pyelonephritis Status: Acute (2) Hepatitis C antibody positive in blood Status: Chronic (3) ESRD (end stage renal disease) Status: Acute - Assessment and Plan (Free Text) Plan: Dialysis TTS and now ABs as per medicine
--- NOTE | 2017-04-27 11:32 | RAD ---
HISTORY: urolithiasis COMPARISON: 07/06/2015 FINDINGS: BOWEL: Unremarkable bowel gas pattern. Mild retained feces in the descending and rectosigmoid colon. Large right renal calculi unchanged from prior. BONES: Normal. OTHER FINDINGS: None. IMPRESSION: Large right renal calculi unchanged. Previously evident left renal calculi are no longer identified. Patient appears to be status post left nephrectomy on recent CT examination. Otherwise unremarkable.
[2017-04-27] MEDS: Meropenem 500 MG in Sodium Chloride 0.9% 100 ML IVPB SCH ×2 (11:53→21:34)
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
--- NOTE | 2017-04-27 19:53 | CON ---
UROLOGY CONSULTATION REQUESTING PHYSICIAN: Mikel Marc MD UROLOGY CONSULTATION FILLED BY: Cyndie Ferro MD REASON FOR CONSULTATION: Urinary tract infection. HISTORY OF PRESENT ILLNESS: The patient is a 47-year-old male with urolithiasis. The patient is in otherwise fair to poor health. The patient has history of bilateral urolithiasis. He had staghorn calculi associated with hydronephrosis and renal failure. The patient had previously undergone percutaneous nephrolithotomy for the left renal staghorn calculus. The patient had persistent bleeding postoperatively despite angiographic embolization. The patient underwent left nephrectomy. The patient has been on dialysis for renal failure. He has had recurrent urinary tract infection. He has had persistent left flank pain. No nausea or vomiting. No fever. The patient reports no hematuria. The patient has had fair appetite. He has gained weight relative to his lowest weight when he was more ill. The patient is admitted with left flank pain. The patient is also found to have a right renal staghorn calculus associated with right hydronephrosis and right renal cortical atrophy. The patient reports that he is potent. He reports that there is a bad odor to his semen. No hematospermia. The patient has fair to good urinary stream. He reports normal urine output. The patient has been receiving hemodialysis. The patient lives with his and children. PHYSICAL EXAMINATION: GENERAL: The patient is a well-developed, well-nourished, middle-aged male. The patient is awake and alert. ABDOMEN: Soft, nondistended. There is mild left-sided abdominal tenderness. BACK: No CVA tenderness. No bladder distention on examination. LABORATORY DATA: Reviewed. CT scan was reviewed as well. There is a solitary right kidney with severe cortical thinning and multiple stones including a branching stone. The CAT scan also revealed a distended stomach. There is no definite left flank collection. Spleen is noted and is prominent. IMPRESSION: Probably urinary tract infection. Right renal calculi. Renal failure. Left flank pain. RECOMMENDATIONS AND PLAN: Urine culture. Antibiotic therapy. We will obtain abdominal x-ray. We will discuss regarding options of further therapy. Cyndie Ferro MD cc: Mikel Marc MD [id number]
[2017-04-27] MEDS: Bisacodyl 5mg EC Tab PO SCH (21:34)
--- NOTE | 2017-04-27 22:38 | CP.PCM.PN ---
Subjective - Date & Time of Evaluation Date of Evaluation: 04/27/17 Time of Evaluation: 19:30 - Subjective Subjective: Pt is for AXR now, has had same pains on left flank; generalized weakness but no other complaint due for dialysis now- pt has been advised to permit full treatments- has not been allowing this remains afebrile; BP controlled on antibiotics for UTI/pyelo Objective - Vital Signs/Intake and Output Vital Signs (last 24 hours): Temp Pulse Resp BP Pulse Ox 98.0 F 62 21 164/83 H 100 04/27/17 16:55 04/27/17 16:55 04/27/17 16:55 04/27/17 16:55 04/27/17 16:55 Intake and Output: 04/27/17 04/28/17 18:59 06:59 Intake Total 700 Balance 700 - Medications Medications: Current Medications Alprazolam (Xanax) 0.5 mg PO TID PRN PRN Reason: Anxiety Last Admin: 04/27/17 17:22 Dose: 0.5 mg Bisacodyl (Dulcolax) 10 mg PO HS [facility] Last Admin: 04/27/17 21:34 Dose: Not Given Calcium Acetate (Phoslo) 1,334 mg PO TID [facility] Last Admin: 04/27/17 17:15 Dose: 1,334 mg Docusate Sodium (Colace) 100 mg PO BID [facility] Last Admin: 04/27/17 17:14 Dose: 100 mg Meropenem 500 mg/ Sodium (Chloride) 100 mls @ 100 mls/hr IVPB Q12 [facility] Last Admin: 04/27/17 21:34 Dose: Not Given Ondansetron HCl (Zofran Inj) 4 mg IVP Q8H PRN PRN Reason: Nausea/Vomiting Last Admin: 04/27/17 19:20 Dose: 4 mg Oxycodone/Acetaminophen (Percocet 5/325 Mg Tab) 2 tab PO Q4H PRN PRN Reason: Pain, moderate (4-7) Stop: 04/29/17 19:02 Last Admin: 04/27/17 17:16 Dose: 2 tab Pantoprazole Sodium (Protonix Ec Tab) 40 mg PO DAILY [facility] Last Admin: 04/27/17 09:56 Dose: 40 mg Sevelamer Carbonate (Renvela) 1,600 mg PO TID [facility] Last Admin: 04/27/17 17:20 Dose: 1,600 mg Tamsulosin HCl (Flomax) 0.4 mg PO DAILY [facility] Last Admin: 04/27/17 09:56 Dose: 0.4 mg - Labs Labs: 04/25/17 08:09 04/25/17 08:09 - Constitutional Appears: No Acute Distress - Head Exam Head Exam: ATRAUMATIC, NORMAL INSPECTION, NORMOCEPHALIC - Eye Exam Eye Exam: EOMI, Normal appearance, PERRL Pupil Exam: NORMAL ACCOMODATION, PERRL - Respiratory Exam Respiratory Exam: Clear to Ausculation Bilateral, NORMAL BREATHING PATTERN - Cardiovascular Exam Cardiovascular Exam: REGULAR RHYTHM, +S1, +S2. absent: Murmur - GI/Abdominal Exam GI & Abdominal Exam: Soft, Normal Bowel Sounds. absent: Tenderness - Rectal Exam Rectal Exam: NORMAL INSPECTION - Extremities Exam Extremities Exam: Full ROM, Normal Capillary Refill - Neurological Exam Neurological Exam: Alert, Awake, CN II-XII Intact, Normal Gait, Oriented x3 - Psychiatric Exam Psychiatric exam: Normal Affect, Normal Mood - Skin Skin Exam: Dry, Intact, Normal Color, Warm Assessment and Plan (1) ESRD (end stage renal disease) Status: Acute (2) Pyelonephritis, acute Status: Acute (3) Abdominal pain Status: Acute (4) CKD (chronic kidney disease) Status: Acute
[2017-04-28] MEDS: Meropenem 500 MG in Sodium Chloride 0.9% 100 ML IVPB SCH (01:05)
[2017-04-28] MEDS: Oxycodone/Acetaminophen 5/325 mg Tab PO PRN ×5 (01:18→22:26)
--- NOTE | 2017-04-28 02:08 | PN ---
SUBJECTIVE: The patient is complaining that he did not get IV antibiotics that I left over. He got dose around at 10:00 of meropenem and he got one in the morning and is due to get one this evening. He is a chronic complainer it seems, but he is still having left-sided pain. He is on dialysis because yesterday also he was complaining that he did not get antibiotics in the past. He has history of left nephrectomy and he is on dialysis and the other kidney has staghorn calculi, so at this time, I have left him on meropenem because of UTI. PHYSICAL EXAMINATION: VITAL SIGNS: T-max is 98, pulse 62, blood pressure 164/83, respirations are 21. LUNGS: Clear. HEART: S1 and S2 is regular. ABDOMEN: Soft. He complains of pain on the left flank. No guarding, no rigidity present. EXTREMITIES: Have no edema, clubbing or cyanosis. LABORATORY DATA: Labs are noted. Labs show white count is 5.2, hemoglobin 10.2, hematocrit 30.6, platelet count is 206 and creatinine is 12.1. Urine culture had gram-negative rods, ID and sensitivity. This is from 04/19, which was less than 10,000, it is not that bad. So if he makes urine, I would like to check urine culture again because this culture is from the 04/19. We will repeat in the a.m. as it is around 10:00 when I am writing the note, and if he makes any urine, to get urine culture and urinalysis. He does have staghorn, but he has only one kidney and it is unclear what should be done. I would depend on the urologist and renal attending, as the patient is already on dialysis, and most probably the right kidney is nonfunctional. Antonella Sexton MD
--- NOTE | 2017-04-28 08:49 | PCM.URO ---
Urology Progress Note - Subjective Abdominal Pain: Yes (stones) - Objective Lab Studies: Reviewed (thanks for gu consult/ plans for out management) Intake & Output: Intake & Output 04/27/17 04/28/17 04/28/17 18:59 06:59 18:59 Intake Total 700 580 Balance 700 580 Intake: Intake, IV Amount 100 100 Right Antecubital 100 100 Oral 600 480 Other: # Voids Urine, Voided 2 2 # Bowel Movements 0 Vital Signs: Vital Signs - 24 hr 04/27/17 04/27/17 04/27/17 13:35 13:45 14:00 Temperature 98 F Pulse Rate 64 Pulse Rate [ 64 64 64 Right Brachial] Respiratory 18 16 16 Rate Blood Pressure 137/75 Blood Pressure 137/75 141/75 119/64 [Right Arm] O2 Sat by Pulse 98 97 97 Oximetry 04/27/17 04/27/17 04/27/17 14:30 15:00 15:30 Temperature Pulse Rate Pulse Rate [ 64 67 66 Right Brachial] Respiratory 17 18 16 Rate Blood Pressure Blood Pressure 123/68 129/77 122/67 [Right Arm] O2 Sat by Pulse 96 98 98 Oximetry 04/27/17 04/27/17 04/27/17 16:00 16:30 16:35 Temperature Pulse Rate Pulse Rate [ 67 66 67 Right Brachial] Respiratory 18 17 18 Rate Blood Pressure Blood Pressure 132/65 127/64 125/64 [Right Arm] O2 Sat by Pulse 98 97 97 Oximetry 04/27/17 04/28/17 04/28/17 16:55 00:04 08:43 Temperature 98.0 F 98.4 F 97.7 F Pulse Rate 62 71 87 Pulse Rate [ Right Brachial] Respiratory 21 20 21 Rate Blood Pressure 164/83 H 129/69 123/77 Blood Pressure [Right Arm] O2 Sat by Pulse 100 97 96 Oximetry
[2017-04-28] MEDS: Meropenem 500 MG in Sodium Chloride 0.9% 50 ML IVPB SCH ×2 (10:08→21:37)
[2017-04-28] MEDS: Pantoprazole 40 mg EC Tab PO SCH (10:09)
--- NOTE | 2017-04-28 13:14 | CP.PCM.PN ---
Subjective - Date & Time of Evaluation Date of Evaluation: 04/28/17 Time of Evaluation: 13:10 - Subjective Subjective: Same left flank pains Has been afebrile, BP stable Dialysis 04/27- UF 2400ml AXR shows large right renal calculi no n, v, diarrhea, CPs, SOB Objective - Vital Signs/Intake and Output Vital Signs (last 24 hours): Temp Pulse Resp BP Pulse Ox 97.7 F 87 21 123/77 96 04/28/17 08:43 04/28/17 08:43 04/28/17 08:43 04/28/17 08:43 04/28/17 08:43 Intake and Output: 04/28/17 04/28/17 06:59 18:59 Intake Total 580 Balance 580 - Medications Medications: Current Medications Alprazolam (Xanax) 0.5 mg PO TID PRN PRN Reason: Anxiety Last Admin: 04/28/17 08:40 Dose: 0.5 mg Bisacodyl (Dulcolax) 10 mg PO HS [facility] Last Admin: 04/27/17 21:34 Dose: Not Given Calcium Acetate (Phoslo) 1,334 mg PO TID [facility] Last Admin: 04/28/17 10:09 Dose: 1,334 mg Docusate Sodium (Colace) 100 mg PO BID [facility] Last Admin: 04/28/17 10:09 Dose: 100 mg Meropenem 500 mg/ Sodium (Chloride) 50 mls @ 100 mls/hr IVPB Q12 [facility] Last Admin: 04/28/17 10:08 Dose: 100 mls/hr Ondansetron HCl (Zofran Inj) 4 mg IVP Q8H PRN PRN Reason: Nausea/Vomiting Last Admin: 04/27/17 19:20 Dose: 4 mg Oxycodone/Acetaminophen (Percocet 5/325 Mg Tab) 2 tab PO Q4H PRN PRN Reason: Pain, moderate (4-7) Stop: 04/29/17 19:02 Last Admin: 04/28/17 10:09 Dose: 2 tab Pantoprazole Sodium (Protonix Ec Tab) 40 mg PO DAILY [facility] Last Admin: 04/28/17 10:09 Dose: 40 mg Sevelamer Carbonate (Renvela) 1,600 mg PO TID [facility] Last Admin: 04/28/17 10:09 Dose: 1,600 mg Tamsulosin HCl (Flomax) 0.4 mg PO DAILY [facility] Last Admin: 04/28/17 10:09 Dose: 0.4 mg - Labs Labs: 04/25/17 08:09 04/25/17 08:09 - Constitutional Appears: No Acute Distress, Chronically Ill - Head Exam Head Exam: ATRAUMATIC, NORMAL INSPECTION - Eye Exam Eye Exam: EOMI, Normal appearance - Neck Exam Neck Exam: Normal Inspection. absent: Tenderness - Respiratory Exam Respiratory Exam: Clear to Ausculation Bilateral, NORMAL BREATHING PATTERN - Cardiovascular Exam Cardiovascular Exam: REGULAR RHYTHM, +S1 - GI/Abdominal Exam GI & Abdominal Exam: Soft. absent: Tenderness - Extremities Exam Extremities Exam: Normal Inspection. absent: Tenderness - Neurological Exam Neurological Exam: Awake, CN II-XII Intact - Skin Skin Exam: Dry, Warm Assessment and Plan (1) Xanthogranulomatous pyelonephritis Status: Acute (2) Hepatitis C antibody positive in blood Status: Chronic (3) ESRD (end stage renal disease) Status: Acute - Assessment and Plan (Free Text) Plan: dialysis TTS IV ABs as per medicine can consider right nephrectomy if pains continue- as per
--- NOTE | 2017-04-28 17:59 | CP.PCM.PN ---
Subjective - Date & Time of Evaluation Date of Evaluation: 04/28/17 Time of Evaluation: 03:50 - Subjective Subjective: dictated Objective - Vital Signs/Intake and Output Vital Signs (last 24 hours): Temp Pulse Resp BP Pulse Ox 98.1 F 66 20 123/62 96 04/28/17 16:51 04/28/17 16:51 04/28/17 16:51 04/28/17 16:51 04/28/17 16:51 Intake and Output: 04/28/17 04/28/17 06:59 18:59 Intake Total 1130 Balance 1130 - Medications Medications: Current Medications Alprazolam (Xanax) 0.5 mg PO TID PRN PRN Reason: Anxiety Last Admin: 04/28/17 08:40 Dose: 0.5 mg Bisacodyl (Dulcolax) 10 mg PO HS [facility] Last Admin: 04/27/17 21:34 Dose: Not Given Calcium Acetate (Phoslo) 1,334 mg PO TID [facility] Last Admin: 04/28/17 14:27 Dose: 1,334 mg Docusate Sodium (Colace) 100 mg PO BID [facility] Last Admin: 04/28/17 10:09 Dose: 100 mg Meropenem 500 mg/ Sodium (Chloride) 50 mls @ 100 mls/hr IVPB Q12 [facility] Last Admin: 04/28/17 10:08 Dose: 100 mls/hr Ondansetron HCl (Zofran Inj) 4 mg IVP Q8H PRN PRN Reason: Nausea/Vomiting Last Admin: 04/27/17 19:20 Dose: 4 mg Oxycodone/Acetaminophen (Percocet 5/325 Mg Tab) 2 tab PO Q4H PRN PRN Reason: Pain, moderate (4-7) Stop: 04/29/17 19:02 Last Admin: 04/28/17 10:09 Dose: 2 tab Pantoprazole Sodium (Protonix Ec Tab) 40 mg PO DAILY [facility] Last Admin: 04/28/17 10:09 Dose: 40 mg Sevelamer Carbonate (Renvela) 1,600 mg PO TID [facility] Last Admin: 04/28/17 14:27 Dose: 1,600 mg Tamsulosin HCl (Flomax) 0.4 mg PO DAILY [facility] Last Admin: 04/28/17 10:09 Dose: 0.4 mg - Labs Labs: 11/14/17 08:09 04/25/17 08:09
--- NOTE | 2017-04-28 20:13 | PN ---
SUBJECTIVE: The patient's nurse says that last night he refused meropenem. He had dialysis yesterday. He has a large staghorn calculus on the right, however, he is on dialysis. He denies any nausea or vomiting. When I went in, he was sleeping and snoring around 4:00. PHYSICAL EXAMINATION: VITAL SIGNS: T-max was 98.1, pulse 66, blood pressure 123/62, respirations are 20. HEENT: Head is atraumatic, normocephalic. NECK: Supple. LUNGS: Clear. HEART: S1 and S2 is regular. ABDOMEN: Some vague pains in the abdomen. EXTREMITIES: Have no edema. I had asked for a repeat urine culture, and he is being followed by urologist as well as renal doctor. Unless this urine had less than 10,000, and the urine will keep growing bacteria, as there is stone in the kidney, but I am not sure if anything definitive can be done. So for now, I will leave her on meropenem and wait for further exam. There is severe right-sided hydronephrosis, large staghorn calculus and additional calculus approximately 12 mm, severe small calcification noted. The left kidney is not identified because it is not there, and he also has constipation. This is the report of the CAT scan, so I have continued meropenem at this time and will see what the Renal as well Urology team has to tell us. Antonella Sexton MD
[2017-04-28] MEDS: Bisacodyl 5mg EC Tab PO SCH (21:38)
--- NOTE | 2017-04-28 23:29 | CP.PCM.PN ---
Subjective - Date & Time of Evaluation Date of Evaluation: 04/28/17 Time of Evaluation: 18:00 - Subjective Subjective: pt seen and examined, c/o dysuria, continues to have pus in urine Objective - Vital Signs/Intake and Output Vital Signs (last 24 hours): Temp Pulse Resp BP Pulse Ox 98.1 F 70 20 125/60 99 04/28/17 23:17 04/28/17 23:17 04/28/17 23:17 04/28/17 23:17 04/28/17 23:17 Intake and Output: 04/28/17 04/29/17 18:59 06:59 Intake Total 1130 Balance 1130 - Medications Medications: Current Medications Alprazolam (Xanax) 0.5 mg PO TID PRN PRN Reason: Anxiety Last Admin: 04/28/17 17:58 Dose: 0.5 mg Bisacodyl (Dulcolax) 10 mg PO HS [facility] Last Admin: 04/28/17 21:38 Dose: 10 mg Calcium Acetate (Phoslo) 1,334 mg PO TID [facility] Last Admin: 04/28/17 17:59 Dose: 1,334 mg Docusate Sodium (Colace) 100 mg PO BID [facility] Last Admin: 04/28/17 17:58 Dose: 100 mg Meropenem 500 mg/ Sodium (Chloride) 50 mls @ 100 mls/hr IVPB Q12 [facility] Last Admin: 04/28/17 21:37 Dose: 100 mls/hr Ondansetron HCl (Zofran Inj) 4 mg IVP Q8H PRN PRN Reason: Nausea/Vomiting Last Admin: 04/27/17 19:20 Dose: 4 mg Oxycodone/Acetaminophen (Percocet 5/325 Mg Tab) 2 tab PO Q4H PRN PRN Reason: Pain, moderate (4-7) Stop: 04/29/17 19:02 Last Admin: 04/28/17 22:26 Dose: 2 tab Pantoprazole Sodium (Protonix Ec Tab) 40 mg PO DAILY [facility] Last Admin: 04/28/17 10:09 Dose: 40 mg Sevelamer Carbonate (Renvela) 1,600 mg PO TID [facility] Last Admin: 04/28/17 17:59 Dose: 1,600 mg Tamsulosin HCl (Flomax) 0.4 mg PO DAILY [facility] Last Admin: 04/28/17 10:09 Dose: 0.4 mg - Labs Labs: 04/25/17 08:09 04/25/17 08:09 - Constitutional Appears: No Acute Distress, Chronically Ill - Head Exam Head Exam: ATRAUMATIC, NORMAL INSPECTION, NORMOCEPHALIC - Eye Exam Eye Exam: EOMI, Normal appearance, PERRL Pupil Exam: NORMAL ACCOMODATION, PERRL - Cardiovascular Exam Cardiovascular Exam: REGULAR RHYTHM, +S1, +S2. absent: Murmur - GI/Abdominal Exam GI & Abdominal Exam: Soft, Normal Bowel Sounds. absent: Tenderness - Rectal Exam Rectal Exam: Deferred Assessment and Plan (1) ESRD (end stage renal disease) Status: Acute (2) Pyelonephritis, acute Status: Acute (3) Abdominal pain Status: Acute (4) CKD (chronic kidney disease) Status: Acute
[2017-04-29] MEDS: Oxycodone/Acetaminophen 5/325 mg Tab PO PRN ×6 (03:06→23:45)
[2017-04-29 09:00] LABS: RBC URINE 45 /hpf (0-3); URINE BACTERIA FEW (<OCC); URINE BILIRUBIN NEGATIVE (NEGATIVE); URINE BLOOD 2+ (NEGATIVE); URINE COLOR Yellow (YELLOW); URINE GLUCOSE (UA) NORMAL (Normal); URINE KETONE NEGATIVE (NEGATIVE); URINE LEUKOCYTE ESTERASE 3+ Leu/uL (Negative); URINE PROTEIN 1+ mg/dL (NEGATIVE); URINE UROBILINOGEN NORMAL mg/dL (0.2-1.0); WBC CLUMPS FEW /hpf; WBC URINE 452 /hpf (0-5)
--- NOTE | 2017-04-29 09:02 | CP.PCM.PN ---
Subjective - Date & Time of Evaluation Date of Evaluation: 04/29/17 Time of Evaluation: 08:59 - Subjective Subjective: Notes reviewed Awakes easily, does not want to discuss care No pain this am No fever or chills overnight No cp or palp no sob or cough no n/v/d 10 point ros negative unless documented otherwise above Objective - Vital Signs/Intake and Output Vital Signs (last 24 hours): Temp Pulse Resp BP Pulse Ox 98.0 F 72 20 134/75 98 04/29/17 08:10 04/29/17 08:10 04/29/17 08:10 04/29/17 08:10 04/29/17 08:10 Intake and Output: 04/29/17 04/29/17 06:59 18:59 Intake Total 640 Balance 640 - Medications Medications: Current Medications Alprazolam (Xanax) 0.5 mg PO TID PRN PRN Reason: Anxiety Last Admin: 04/29/17 03:07 Dose: 0.5 mg Bisacodyl (Dulcolax) 10 mg PO HS [facility] Last Admin: 04/28/17 21:38 Dose: 10 mg Calcium Acetate (Phoslo) 1,334 mg PO TID [facility] Last Admin: 04/28/17 17:59 Dose: 1,334 mg Docusate Sodium (Colace) 100 mg PO BID [facility] Last Admin: 04/28/17 17:58 Dose: 100 mg Meropenem 500 mg/ Sodium (Chloride) 50 mls @ 100 mls/hr IVPB Q12 [facility] Last Admin: 04/28/17 21:37 Dose: 100 mls/hr Ondansetron HCl (Zofran Inj) 4 mg IVP Q8H PRN PRN Reason: Nausea/Vomiting Last Admin: 04/27/17 19:20 Dose: 4 mg Oxycodone/Acetaminophen (Percocet 5/325 Mg Tab) 2 tab PO Q4H PRN PRN Reason: Pain, moderate (4-7) Stop: 04/29/17 19:02 Last Admin: 04/29/17 07:38 Dose: 2 tab Pantoprazole Sodium (Protonix Ec Tab) 40 mg PO DAILY [facility] Last Admin: 04/28/17 10:09 Dose: 40 mg Sevelamer Carbonate (Renvela) 1,600 mg PO TID [facility] Last Admin: 04/28/17 17:59 Dose: 1,600 mg Tamsulosin HCl (Flomax) 0.4 mg PO DAILY [facility] Last Admin: 04/28/17 10:09 Dose: 0.4 mg - Labs Labs: 04/25/17 08:09 04/25/17 08:09 - Constitutional Appears: Well, Non-toxic - Head Exam Head Exam: ATRAUMATIC, NORMOCEPHALIC - Eye Exam Eye Exam: EOMI, Normal appearance - ENT Exam ENT Exam: Mucous Membranes Moist, Normal Oropharynx - Neck Exam Neck Exam: absent: Lymphadenopathy, Thyromegaly - Respiratory Exam Respiratory Exam: NORMAL BREATHING PATTERN. absent: Rales, Rhonchi - Cardiovascular Exam Cardiovascular Exam: REGULAR RHYTHM, +S1, +S2 - GI/Abdominal Exam GI & Abdominal Exam: Soft, Normal Bowel Sounds - Extremities Exam Extremities Exam: absent: Pedal Edema, Tenderness - Neurological Exam Neurological Exam: Alert, Oriented x3 - Skin Skin Exam: Dry, Intact Assessment and Plan (1) ESRD (end stage renal disease) Status: Acute (2) Pyelonephritis, acute Status: Acute (3) Hypertension Status: Acute (4) Low back pain Status: Acute (5) Anemia Status: Chronic - Assessment and Plan (Free Text) Assessment: Dialysis scheduled today, uf as tolerated Abx as ordered Pain management per admitting team BP stable Continue current care
[2017-04-29] MEDS: Pantoprazole 40 mg EC Tab PO SCH (09:10)
[2017-04-29] MEDS: Meropenem 500 MG in Sodium Chloride 0.9% 50 ML IVPB SCH ×2 (09:46→21:22)
[2017-04-29] MEDS: Bisacodyl 5mg EC Tab PO SCH (21:25)
--- NOTE | 2017-04-29 23:08 | CP.PCM.PN ---
Subjective - Date & Time of Evaluation Date of Evaluation: 04/29/17 Time of Evaluation: 02:30 - Subjective Subjective: pt seen and evaluated, is still coughing Objective - Vital Signs/Intake and Output Vital Signs (last 24 hours): Temp Pulse Resp BP Pulse Ox 97.9 F 74 20 127/66 97 04/29/17 17:03 04/29/17 17:03 04/29/17 17:03 04/29/17 17:03 04/29/17 17:03 Intake and Output: 04/29/17 04/30/17 18:59 06:59 Intake Total 240 1050 Balance 240 1050 - Medications Medications: Current Medications Alprazolam (Xanax) 0.5 mg PO TID PRN PRN Reason: Anxiety Last Admin: 04/29/17 19:44 Dose: 0.5 mg Bisacodyl (Dulcolax) 10 mg PO HS [facility] Last Admin: 04/29/17 21:25 Dose: Not Given Calcium Acetate (Phoslo) 1,334 mg PO TID [facility] Last Admin: 04/29/17 18:19 Dose: 1,334 mg Docusate Sodium (Colace) 100 mg PO BID [facility] Last Admin: 04/29/17 18:20 Dose: 100 mg Meropenem 500 mg/ Sodium (Chloride) 50 mls @ 100 mls/hr IVPB Q12 [facility] Last Admin: 04/29/17 21:22 Dose: 100 mls/hr Ondansetron HCl (Zofran Inj) 4 mg IVP Q8H PRN PRN Reason: Nausea/Vomiting Last Admin: 04/27/17 19:20 Dose: 4 mg Oxycodone/Acetaminophen (Percocet 5/325 Mg Tab) 2 tab PO Q4H PRN PRN Reason: Pain, moderate (4-7) Stop: 05/02/17 19:46 Pantoprazole Sodium (Protonix Ec Tab) 40 mg PO DAILY [facility] Last Admin: 04/29/17 09:10 Dose: Not Given Sevelamer Carbonate (Renvela) 1,600 mg PO TID [facility] Last Admin: 04/29/17 18:20 Dose: 1,600 mg Tamsulosin HCl (Flomax) 0.4 mg PO DAILY [facility] Last Admin: 04/29/17 09:10 Dose: Not Given - Labs Labs: 04/25/17 08:09 04/25/17 08:09 Assessment and Plan (1) ESRD (end stage renal disease) Status: Acute (2) Pyelonephritis, acute Status: Acute (3) Abdominal pain Status: Acute (4) CKD (chronic kidney disease) Status: Acute
[2017-04-30] MEDS: Oxycodone/Acetaminophen 5/325 mg Tab PO PRN ×3 (03:45→11:45)
[2017-04-30 08:23] VITALS: RESP 20
[2017-04-30] MEDS: Meropenem 500 MG in Sodium Chloride 0.9% 50 ML IVPB SCH (09:39)
[2017-04-30] MEDS: Pantoprazole 40 mg EC Tab PO SCH (10:47)
[2017-04-30 16:14] VITALS: BP 150/74; PULSE 69; TEMP 98.2; O2SAT 100
--- NOTE | 2017-04-30 20:58 | CP.PCM.DIS ---
Provider - Provider Date of Admission: 04/19/17 22:53 Attending physician: Mikel Marc MD Time Spent in preparation of Discharge (in minutes): 18 Diagnosis - Discharge Diagnosis (1) ESRD (end stage renal disease) Status: Acute (2) Pyelonephritis, acute Status: Acute (3) Abdominal pain Status: Acute (4) CKD (chronic kidney disease) Status: Acute Hospital Course - Lab Results Lab Results: Micro Results 04/19/17 19:56 Urine,Clean Catch Urine Culture - Final Gram Negative Akash Most Recent Lab Values WBC 5.2 K/uL (4.8-10.8) 04/25/17 08:09 RBC 3.26 Mil/uL (4.40-5.90) L 04/25/17 08:09 Hgb 10.2 g/dL (12.0-18.0) L 04/25/17 08:09 Hct 30.6 % (35.0-51.0) L 04/25/17 08:09 MCV 93.9 fL (80.0-94.0) 04/25/17 08:09 MCH 31.2 pg (27.0-31.0) H 04/25/17 08:09 MCHC 33.2 g/dL (33.0-37.0) 04/25/17 08:09 RDW 14.4 % (11.5-14.5) 04/25/17 08:09 Plt Count 206 K/uL (130-400) 04/25/17 08:09 MPV 7.8 fL (7.2-11.7) 04/25/17 08:09 Neut % (Auto) 52.2 % (50.0-75.0) 04/25/17 08:09 Lymph % (Auto) 33.7 % (20.0-40.0) 04/25/17 08:09 [place] % (Auto) 7.4 % (0.0-10.0) 04/25/17 08:09 Eos % (Auto) 5.5 % (0.0-4.0) H 04/25/17 08:09 Baso % (Auto) 1.2 % (0.0-2.0) 04/25/17 08:09 Neut # 2.7 K/uL (1.8-7.0) 04/25/17 08:09 Lymph # 1.8 K/uL (1.0-4.3) 04/25/17 08:09 [place] # 0.4 K/uL (0.0-0.8) 04/25/17 08:09 Eos # 0.3 K/uL (0.0-0.7) 04/25/17 08:09 Baso # 0.1 K/uL (0.0-0.2) 04/25/17 08:09 Sodium 132 mmol/L (132-148) 04/25/17 08:09 Potassium 4.8 mmol/L (3.6-5.2) 04/25/17 08:09 Chloride 95 mmol/L (98-107) L 04/25/17 08:09 Carbon Dioxide 24 mmol/L (22-30) 04/25/17 08:09 Anion Gap 18 (10-20) 04/25/17 08:09 BUN 66 mg/dL (9-20) H 04/25/17 08:09 Creatinine 12.1 mg/dL (0.8-1.5) H* D 04/25/17 08:09 Est GFR ( Amer) 6 04/25/17 08:09 Est GFR (Non-Af Amer) 5 04/25/17 08:09 Random Glucose 78 mg/dL (75-110) 04/25/17 08:09 Calcium 8.9 mg/dl (8.6-10.4) 04/25/17 08:09 Phosphorus 6.2 mg/dL (2.5-4.5) H 04/25/17 08:09 Total Bilirubin 0.6 mg/dL (0.2-1.3) 04/25/17 08:09 AST 25 U/L (17-59) 04/25/17 08:09 ALT 27 U/L (21-72) 04/25/17 08:09 Alkaline Phosphatase 70 U/L (38-126) 04/25/17 08:09 Total Protein 6.5 g/dL (6.3-8.3) 04/25/17 08:09 Albumin 3.4 g/dL (3.5-5.0) L 04/25/17 08:09 Globulin 3.2 gm/dL (2.2-3.9) 04/25/17 08:09 Albumin/Globulin Ratio 1.1 (1.0-2.1) 04/25/17 08:09 Lipase 36 U/L (23-300) 04/19/17 20:42 Urine Color Yellow (YELLOW) 04/29/17 07:27 Urine Clarity Hazy (Clear) 04/29/17 07:27 Urine pH 8.0 (5.0-8.0) 04/29/17 07:[address] 1.006 (1.003-1.030) 04/29/17 07:27 Urine Protein 1+ mg/dL (NEGATIVE) H 04/29/17 07:27 Urine Glucose (UA) Normal mg/dL (Normal) 04/29/17 07:27 Urine Ketones Negative mg/dL (NEGATIVE) 04/29/17 07:27 Urine Blood 2+ (NEGATIVE) H 04/29/17 07:27 Urine Nitrate Negative (NEGATIVE) 04/29/17 07:27 Urine Bilirubin Negative (NEGATIVE) 04/29/17 07:27 Urine Urobilinogen Normal mg/dL (0.2-1.0) 04/29/17 07:27 Ur Leukocyte Esterase 3+ Charleen/uL (Negative) H 04/29/17 07:27 Urine WBC (Auto) 452 /hpf (0-5) H 04/29/17 07:27 Urine RBC (Auto) 45 /hpf (0-3) H 04/29/17 07:27 Urine WBC Clumps (Auto) Few /hpf (NONE) H 04/29/17 07:27 Amorphous Sediment Rare /ul (<OCC) H 04/29/17 07:27 Urine Bacteria Few (<OCC) H 04/29/17 07:27 - Hospital Course Hospital Course: Pt left against medical advice Discharge Exam - Head Exam Head Exam: ATRAUMATIC, NORMAL INSPECTION, NORMOCEPHALIC Discharge Plan - Follow Up Plan Condition: FAIR Disposition: AGAINST MEDICAL ADVICE Instructions: Urinary Tract Infection in Women (DC), Urinary Tract Infection in Men (DC), Renal Failure Diet (DC), Acute Pyelonephritis (DC), Acute Pyelonephritis (GEN), Dysuria (GEN)
[2017-05-02] MEDS ORDERED: Oxycodone/Acetaminophen 5/325 mg Tab PO PRN (18:22)
[2017-05-02] MEDS ORDERED: Meropenem 500 MG in Sodium Chloride 0.9% 100 ML IVPB SCH (22:00)
== END 2017-04-30 16:40 | disposition left against medical advice (07) | DRG 320 ==
LOC: C.ER 19:38 → C.3T 22:53
PROVIDERS: ADMIT Internal Medicine; ATTEND Internal Medicine
PROC: 5A1D70Z Performance of Urinary Filtration, Intermittent, Less than 6 Hours Per Day (ICD-10-PCS; principal; 2017-04-20)
DX: N10 Acute pyelonephritis (principal); I12.0 Hypertensive chronic kidney disease with stage 5 chronic kidney disease or end stage renal disease; N18.6 End stage renal disease; N11.9 Chronic tubulo-interstitial nephritis, unspecified; E83.39 Other disorders of phosphorus metabolism; D64.9 Anemia, unspecified; Z86.711 Personal history of pulmonary embolism; Z87.440 Personal history of urinary (tract) infections; Z87.442 Personal history of urinary calculi; Z90.5 Acquired absence of kidney; Z99.2 Dependence on renal dialysis

== ENCOUNTER 2017-05-02 15:33 | Inpatient (IN) | payer OTHER ==
[2017-05-02 15:33] VITALS: BMI 29.0
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
[2017-05-02 17:35] LABS: BASO # 0.1 K/uL (0.0-0.2); BASO % 1.3 % (0.0-2.0); EOS # 0.2 K/uL (0.0-0.7); HEMATOCRIT 32.5 % (35.0-51.0); LYMPH # 1.5 K/uL (1.0-4.3); LYMPH % 27.8 % (20.0-40.0); MEAN CELL VOLUME 93.9 fL (80.0-94.0); MEAN CORPUSCULAR HEMOGLOBIN 31.1 pg (27.0-31.0); MEAN CORPUSCULAR HGB CONC 33.1 g/dL (33.0-37.0); MEAN PLATELET VOLUME 8.2 fL (7.2-11.7); MONO # 0.6 K/uL (0.0-0.8); MONO % 11.6 % (0.0-10.0); NRBC % 0.1 % (0.0-2.0); RED CELL DISTRIBUTION WIDTH 15.4 % (11.5-14.5); WHITE BLOOD COUNT 5.5 K/uL (4.8-10.8)
[2017-05-02 17:47] LABS: VENOUS BLOOD GAS BASE EXCESS 8.6 mmol/L (0.0-2.0); VENOUS BLOOD GAS PCO2 59 mmHg (40-60); VENOUS BLOOD PH 7.39 (7.32-7.43)
[2017-05-02 18:10] LABS: RBC URINE 53 /hpf (0-3); URINE BACTERIA MOD (<OCC); URINE BILIRUBIN NEGATIVE (NEGATIVE); URINE BLOOD 2+ (NEGATIVE); URINE COLOR Yellow (YELLOW); URINE GLUCOSE (UA) NORMAL (Normal); URINE KETONE NEGATIVE (NEGATIVE); URINE LEUKOCYTE ESTERASE 3+ Leu/uL (Negative); URINE PROTEIN 2+ mg/dL (NEGATIVE); URINE UROBILINOGEN NORMAL mg/dL (0.2-1.0); WBC URINE 925 /hpf (0-5)
[2017-05-02] MEDS ORDERED: Meropenem 500 MG in Sodium Chloride 0.9% 100 ML IVPB STA (18:23)
[2017-05-02] MEDS ORDERED: Oxycodone/Acetaminophen 5/325 mg Tab ONE (19:00)
[2017-05-02] MEDS: Oxycodone/Acetaminophen 5/325 mg Tab PO PRN ×2 (19:02→23:59)
[2017-05-02 19:08] LABS: ALB/GLOB RATIO 1.1 (1.0-2.1); BILIRUBIN,TOTAL 0.6 mg/dL (0.2-1.3); CALCIUM 8.1 mg/dl (8.6-10.4); TOTAL PROTEIN 6.9 g/dL (6.3-8.3)
[2017-05-02] MEDS: Meropenem 500 MG in Sodium Chloride 0.9% 50 ML IVPB SCH (22:00)
[2017-05-02] MEDS ORDERED: Meropenem 500 MG in Sodium Chloride 0.9% 50 ML IVPB SCH (22:00)
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
[2017-05-03] MEDS: Oxycodone/Acetaminophen 5/325 mg Tab PO PRN ×3 (04:04→19:53)
[2017-05-03] MEDS ORDERED: Meropenem 500 MG in Sodium Chloride 0.9% 100 ML IVPB SCH (10:00)
[2017-05-03] MEDS: Meropenem 500 MG in Sodium Chloride 0.9% 50 ML IVPB SCH ×2 (10:52→21:52)
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
[2017-05-03 17:41] LABS: RBC URINE 60 /hpf (0-3); URINE BACTERIA MANY (<OCC); URINE BILIRUBIN NEGATIVE (NEGATIVE); URINE BLOOD 3+ (NEGATIVE); URINE COLOR Yellow (YELLOW); URINE GLUCOSE (UA) NORMAL (Normal); URINE KETONE NEGATIVE (NEGATIVE); URINE LEUKOCYTE ESTERASE 3+ Leu/uL (Negative); URINE PROTEIN 1+ mg/dL (NEGATIVE); URINE UROBILINOGEN NORMAL mg/dL (0.2-1.0); WBC URINE 430 /hpf (0-5)
--- NOTE | 2017-05-03 23:25 | CP.PCM.PN ---
Subjective - Date & Time of Evaluation Date of Evaluation: 05/03/17 Time of Evaluation: 16:45 - Subjective Subjective: Pt seen and evaluated, still complains of foul smelling urine and flank pain, ID evlauted the pt and he might need nephrectomy, urology also consulted, he is on HD Objective - Vital Signs/Intake and Output Vital Signs (last 24 hours): Temp Pulse Resp BP Pulse Ox 97.9 F 65 20 146/71 97 05/03/17 15:00 05/03/17 15:00 05/03/17 15:00 05/03/17 15:00 05/03/17 15:00 Intake and Output: 05/03/17 05/04/17 18:59 06:59 Intake Total 340 350 Balance 340 350 - Medications Medications: Current Medications Calcitriol (Rocaltrol) 0.25 mcg PO DAILY [facility] Heparin Sodium (Porcine) (Heparin) 5,000 units SC Q8 [facility] Last Admin: 05/03/17 21:55 Dose: 5,000 units Meropenem 500 mg/ Sodium (Chloride) 50 mls @ 100 mls/hr IVPB Q12 [facility] Last Admin: 05/03/17 21:52 Dose: 100 mls/hr Oxycodone/Acetaminophen (Percocet 5/325 Mg Tab) 2 tab PO Q4H PRN PRN Reason: Pain, moderate (4-7) Stop: 05/05/17 18:25 Last Admin: 05/03/17 19:53 Dose: 2 tab Sevelamer Carbonate (Renvela) 800 mg PO TIDCC [facility] Last Admin: 05/03/17 17:32 Dose: 800 mg Tamsulosin HCl (Flomax) 0.4 mg PO DAILY [facility] Last Admin: 05/03/17 10:46 Dose: 0.4 mg - Labs Labs: 05/02/17 17:29 05/02/17 18:36 - Constitutional Appears: No Acute Distress - Head Exam Head Exam: ATRAUMATIC, NORMAL INSPECTION, NORMOCEPHALIC - Eye Exam Eye Exam: EOMI, Normal appearance, PERRL Pupil Exam: NORMAL ACCOMODATION, PERRL - Respiratory Exam Respiratory Exam: Clear to Ausculation Bilateral, NORMAL BREATHING PATTERN - Cardiovascular Exam Cardiovascular Exam: REGULAR RHYTHM, +S1, +S2. absent: Murmur - GI/Abdominal Exam GI & Abdominal Exam: Soft, Tenderness, Normal Bowel Sounds - Rectal Exam Rectal Exam: Deferred Assessment and Plan (1) Pyelonephritis, acute Status: Acute (2) CKD (chronic kidney disease) Status: Acute (3) ESRD on dialysis Status: Acute (4) Flank pain Status: Acute
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
[2017-05-04] MEDS: Oxycodone/Acetaminophen 5/325 mg Tab PO PRN ×2 (06:37→10:16)
--- NOTE | 2017-05-04 09:04 | CP.PCM.PN ---
Subjective - Date & Time of Evaluation Date of Evaluation: 05/04/17 Time of Evaluation: 09:00 - Subjective Subjective: still with left flank pains on IV ABs for presumed pyelo for dialysis today no fevers , chills now Objective - Vital Signs/Intake and Output Vital Signs (last 24 hours): Temp Pulse Resp BP Pulse Ox 98.4 F 70 20 158/80 H 97 05/04/17 08:17 05/04/17 08:17 05/04/17 08:17 05/04/17 08:17 05/04/17 08:17 Intake and Output: 05/04/17 05/04/17 06:59 18:59 Intake Total 350 240 Balance 350 240 - Medications Medications: Current Medications Calcitriol (Rocaltrol) 0.25 mcg PO DAILY [facility] Heparin Sodium (Porcine) (Heparin) 5,000 units SC Q8 [facility] Last Admin: 05/04/17 06:40 Dose: 5,000 units Meropenem 500 mg/ Sodium (Chloride) 50 mls @ 100 mls/hr IVPB Q12 [facility] Last Admin: 05/03/17 21:52 Dose: 100 mls/hr Oxycodone/Acetaminophen (Percocet 5/325 Mg Tab) 2 tab PO Q4H PRN PRN Reason: Pain, moderate (4-7) Stop: 05/05/17 18:25 Last Admin: 05/04/17 06:37 Dose: 2 tab Sevelamer Carbonate (Renvela) 800 mg PO TIDCC [facility] Last Admin: 05/03/17 17:32 Dose: 800 mg Tamsulosin HCl (Flomax) 0.4 mg PO DAILY [facility] Last Admin: 05/03/17 10:46 Dose: 0.4 mg - Labs Labs: 05/02/17 17:29 05/02/17 18:36 - Constitutional Appears: No Acute Distress, Chronically Ill - Head Exam Head Exam: ATRAUMATIC, NORMAL INSPECTION - Eye Exam Eye Exam: EOMI, Normal appearance - Neck Exam Neck Exam: Normal Inspection. absent: Tenderness - Respiratory Exam Respiratory Exam: Clear to Ausculation Bilateral, NORMAL BREATHING PATTERN - Cardiovascular Exam Cardiovascular Exam: REGULAR RHYTHM, +S1 - GI/Abdominal Exam GI & Abdominal Exam: Soft. absent: Tenderness - Extremities Exam Extremities Exam: Normal Inspection. absent: Tenderness - Back Exam Back Exam: CVA tenderness (L) - Neurological Exam Neurological Exam: Alert, CN II-XII Intact - Skin Skin Exam: Dry, Warm Assessment and Plan (1) Pyelonephritis, acute Status: Acute (2) Chronic pyelonephritis Status: Acute (3) End stage renal disease Status: Acute - Assessment and Plan (Free Text) Plan: dialysis TTS IV ABs consider nephrectomy?
[2017-05-04] MEDS: Meropenem 500 MG in Sodium Chloride 0.9% 50 ML IVPB SCH (10:15)
[2017-05-04] MEDS: Meropenem 500 MG in Sodium Chloride 0.9% 100 ML IVPB SCH (21:31)
--- NOTE | 2017-05-04 23:41 | CP.PCM.PN ---
Subjective - Date & Time of Evaluation Date of Evaluation: 05/04/17 Time of Evaluation: 16:00 - Subjective Subjective: Pt seen and examined, pt is feeling better, his urinary symptoms are improving, he is not short of breath, he is on antbiotics as per ID Objective - Vital Signs/Intake and Output Vital Signs (last 24 hours): Temp Pulse Resp BP Pulse Ox 98.4 F 77 16 143/71 96 05/04/17 19:25 05/04/17 19:25 05/04/17 17:25 05/04/17 19:25 05/04/17 19:25 Intake and Output: 05/04/17 05/05/17 18:59 06:59 Intake Total 640 250 Balance 640 250 - Medications Medications: Current Medications Calcitriol (Rocaltrol) 0.25 mcg PO DAILY [facility] Last Admin: 05/04/17 10:15 Dose: 0.25 mcg Heparin Sodium (Porcine) (Heparin) 5,000 units SC Q8 [facility] Last Admin: 05/04/17 21:31 Dose: 5,000 units Meropenem 500 mg/ Sodium (Chloride) 100 mls @ 100 mls/hr IVPB Q12H [facility] Last Admin: 05/04/17 21:31 Dose: 100 mls/hr Oxycodone/Acetaminophen (Percocet 5/325 Mg Tab) 2 tab PO Q4H PRN PRN Reason: Pain, moderate (4-7) Stop: 05/05/17 18:25 Last Admin: 05/04/17 10:16 Dose: 2 tab Sevelamer Carbonate (Renvela) 800 mg PO TIDCC [facility] Last Admin: 05/04/17 15:59 Dose: 800 mg Tamsulosin HCl (Flomax) 0.4 mg PO DAILY [facility] Last Admin: 05/04/17 10:15 Dose: 0.4 mg - Labs Labs: 05/02/17 17:29 05/02/17 18:36 Assessment and Plan (1) Pyelonephritis, acute Status: Acute (2) CKD (chronic kidney disease) Assessment & Plan: on HD Status: Acute (3) ESRD on dialysis Status: Acute (4) Flank pain Status: Acute (5) Hepatitis C Status: Acute
[2017-05-05 01:41] VITALS: RESP 20
[2017-05-05] MEDS: Oxycodone/Acetaminophen 5/325 mg Tab PO PRN ×2 (05:18→15:46)
[2017-05-05 08:20] VITALS: BP 152/73; PULSE 73; TEMP 98.2; O2SAT 96
--- NOTE | 2017-05-05 09:20 | CP.PCM.PN ---
Subjective - Date & Time of Evaluation Date of Evaluation: 05/05/17 Time of Evaluation: 09:18 - Subjective Subjective: s/p dialysis 05/04, UF 2000ml has been uncooperative with schedule afebrile now; on IV ABs for pyelo same persistent pains so far culture negative no other complaint Objective - Vital Signs/Intake and Output Vital Signs (last 24 hours): Temp Pulse Resp BP Pulse Ox 98.2 F 73 20 152/73 H 96 05/05/17 08:19 05/05/17 08:19 05/05/17 08:19 05/05/17 08:19 05/05/17 08:19 Intake and Output: 05/05/17 05/05/17 06:59 18:59 Intake Total 490 Balance 490 - Medications Medications: Current Medications Calcitriol (Rocaltrol) 0.25 mcg PO DAILY [facility] Last Admin: 05/04/17 10:15 Dose: 0.25 mcg Heparin Sodium (Porcine) (Heparin) 5,000 units SC Q8 [facility] Last Admin: 05/05/17 05:15 Dose: 5,000 units Meropenem 500 mg/ Sodium (Chloride) 100 mls @ 100 mls/hr IVPB Q12H [facility] Last Admin: 05/04/17 21:31 Dose: 100 mls/hr Oxycodone/Acetaminophen (Percocet 5/325 Mg Tab) 2 tab PO Q4H PRN PRN Reason: Pain, moderate (4-7) Stop: 05/05/17 18:25 Last Admin: 05/05/17 05:18 Dose: 2 tab Sevelamer Carbonate (Renvela) 800 mg PO TIDCC [facility] Last Admin: 05/04/17 15:59 Dose: 800 mg Tamsulosin HCl (Flomax) 0.4 mg PO DAILY [facility] Last Admin: 05/04/17 10:15 Dose: 0.4 mg - Labs Labs: 05/02/17 17:29 05/02/17 18:36 - Constitutional Appears: No Acute Distress, Chronically Ill - Head Exam Head Exam: ATRAUMATIC, NORMAL INSPECTION - Eye Exam Eye Exam: EOMI, Normal appearance - Neck Exam Neck Exam: Normal Inspection. absent: Tenderness - Respiratory Exam Respiratory Exam: Clear to Ausculation Bilateral, NORMAL BREATHING PATTERN - Cardiovascular Exam Cardiovascular Exam: REGULAR RHYTHM, +S1 - GI/Abdominal Exam GI & Abdominal Exam: Soft, Tenderness - Extremities Exam Extremities Exam: Normal Inspection. absent: Tenderness - Back Exam Back Exam: CVA tenderness (L) - Neurological Exam Neurological Exam: Alert, CN II-XII Intact - Skin Skin Exam: Dry, Warm Assessment and Plan (1) Pyelonephritis, acute Status: Acute (2) Chronic pyelonephritis Status: Acute (3) End stage renal disease Status: Acute - Assessment and Plan (Free Text) Plan: continue dialysis TTS IV ABs might need left nephrectomy- kidney chronic source of pain, infection
[2017-05-05] MEDS: Meropenem 500 MG in Sodium Chloride 0.9% 100 ML IVPB SCH (09:47)
--- NOTE | 2017-05-05 18:51 | CP.PCM.PN ---
Subjective - Date & Time of Evaluation Date of Evaluation: 05/05/17 Time of Evaluation: 03:15 - Subjective Subjective: dictated Objective - Vital Signs/Intake and Output Vital Signs (last 24 hours): Temp Pulse Resp BP Pulse Ox 98.2 F 73 20 152/73 H 96 05/05/17 08:19 05/05/17 08:19 05/05/17 08:19 05/05/17 08:19 05/05/17 08:19 Intake and Output: 05/05/17 05/05/17 06:59 18:59 Intake Total 490 450 Balance 490 450 - Labs Labs: 05/02/17 17:29 05/02/17 18:36
--- NOTE | 2017-05-05 23:01 | CP.PCM.DIS ---
Provider - Provider Date of Admission: 05/02/17 18:24 Attending physician: Mikel Marc MD Time Spent in preparation of Discharge (in minutes): 45 Diagnosis - Discharge Diagnosis (1) Pyelonephritis, acute Status: Acute (2) CKD (chronic kidney disease) Status: Acute (3) ESRD on dialysis Status: Acute (4) Flank pain Status: Acute Hospital Course - Lab Results Lab Results: Micro Results 05/02/17 17:25 Blood Blood Culture - Preliminary NO GROWTH AFTER 3 DAYS 05/02/17 17:40 Blood Blood Culture - Preliminary NO GROWTH AFTER 3 DAYS 05/03/17 Unknown Urine Urine Culture - Final No Growth (<1,000 CFU/ML) 05/02/17 16:57 Urine Urine Culture - Final No Growth (<1,000 CFU/ML) Most Recent Lab Values WBC 5.5 K/uL (4.8-10.8) 05/02/17 17: RBC 3.46 Mil/uL (4.40-5.90) L 05/02/17 17: Hgb 10.8 g/dL (12.0-18.0) L 05/02/17 17:29 Hct 32.5 % (35.0-51.0) L 05/02/17 17: MCV 93.9 fL (80.0-94.0) 05/02/17 17: MCH 31.1 pg (27.0-31.0) H 05/02/17 17:29 MCHC 33.1 g/dL (33.0-37.0) 05/02/17 17: RDW 15.4 % (11.5-14.5) H 05/02/17 17:29 Plt Count 179 K/uL (130-400) 05/02/17 17:29 MPV 8.2 fL (7.2-11.7) 05/02/17 17: Neut % (Auto) 56.3 % (50.0-75.0) 05/02/17 17: Lymph % (Auto) 27.8 % (20.0-40.0) 05/02/17 17: [place] % (Auto) 11.6 % (0.0-10.0) H 05/02/17 17: Eos % (Auto) 3.0 % (0.0-4.0) 05/02/17 17:29 Baso % (Auto) 1.3 % (0.0-2.0) 05/02/17 17:29 Neut # 3.1 K/uL (1.8-7.0) 05/02/17 17:29 Lymph # 1.5 K/uL (1.0-4.3) 05/02/17 17: [place] # 0.6 K/uL (0.0-0.8) 05/02/17 17: Eos # 0.2 K/uL (0.0-0.7) 05/02/17 17: Baso # 0.1 K/uL (0.0-0.2) 05/02/17 17:29 VBG pH 7.39 (7.32-7.43) 05/02/17 17:40 VBG pCO2 59 mmHg (40-60) 05/02/17 17:40 VBG Total CO2 37.5 mmol/L (22-28) H 05/02/17 17:40 VBG O2 Sat (Calc) 63.2 % (40-65) 05/02/17 17:40 VBG Base Excess 8.6 mmol/L (0.0-2.0) H 05/02/17 17:40 VBG Potassium 6.2 mmol/L (3.6-5.2) H* 05/02/17 17:40 Sodium 141.0 mmol/l (132-148) 05/02/17 17:40 Chloride 105.0 mmol/L (98-107) 05/02/17 17:40 Glucose 72 mg/dl (75-110) L 05/02/17 17:40 Lactate 1.7 mmol/L (0.7-2.1) 05/02/17 17:40 Crit Value Called To Dr. garvey 05/02/17 17:40 Crit Value Called By Naomi mata rcp 05/02/17 17:40 Crit Value Read Back Y 05/02/17 17:40 Blood Gas Notified Time 1750 05/02/17 17:40 Sodium 133 mmol/L (132-148) 05/02/17 18:36 Potassium 5.0 mmol/L (3.6-5.2) 05/02/17 18:36 Chloride 94 mmol/L (98-107) L 05/02/17 18:36 Carbon Dioxide 29 mmol/L (22-30) 05/02/17 18:36 Anion Gap 15 (10-20) 05/02/17 18:36 BUN 40 mg/dL (9-20) H 05/02/17 18:36 Creatinine 6.7 mg/dL (0.8-1.5) H 05/02/17 18:36 Est GFR ( Amer) 11 05/02/17 18:36 Est GFR (Non-Af Amer) 9 05/02/17 18:36 Random Glucose 76 mg/dL (75-110) 05/02/17 18:36 Calcium 8.1 mg/dl (8.6-10.4) L 05/02/17 18:36 Total Bilirubin 0.6 mg/dL (0.2-1.3) 05/02/17 18:36 AST 24 U/L (17-59) 05/02/17 18:36 ALT 34 U/L (21-72) 05/02/17 18:36 Alkaline Phosphatase 81 U/L (38-126) 05/02/17 18:36 Total Protein 6.9 g/dL (6.3-8.3) 05/02/17 18:36 Albumin 3.6 g/dL (3.5-5.0) 05/02/17 18:36 Globulin 3.3 gm/dL (2.2-3.9) 05/02/17 18:36 Albumin/Globulin Ratio 1.1 (1.0-2.1) 05/02/17 18:36 Venous Blood Potassium 6.2 mmol/L (3.6-5.2) H* 05/02/17 17:40 Urine Color Yellow (YELLOW) 05/03/17 17:20 Urine Clarity Hazy (Clear) 05/03/17 17:20 Urine pH 9.0 (5.0-8.0) 05/03/17 17:20 Ur Specific [place] 1.006 (1.003-1.030) 05/03/17 17:20 Urine Protein 1+ mg/dL (NEGATIVE) H 05/03/17 17:20 Urine Glucose (UA) Normal mg/dL (Normal) 05/03/17 17:20 Urine Ketones Negative mg/dL (NEGATIVE) 05/03/17 17:20 Urine Blood 3+ (NEGATIVE) H 05/03/17 17:20 Urine Nitrate Negative (NEGATIVE) 05/03/17 17:20 Urine Bilirubin Negative (NEGATIVE) 05/03/17 17:20 Urine Urobilinogen Normal mg/dL (0.2-1.0) 05/03/17 17:20 Ur Leukocyte Esterase 3+ Charleen/uL (Negative) H 05/03/17 17:20 Urine WBC (Auto) 430 /hpf (0-5) H 05/03/17 17:20 Urine RBC (Auto) 60 /hpf (0-3) H 05/03/17 17:20 Urine Bacteria Many (<OCC) H 05/03/17 17:20 Urine Opiates Screen Positive (NEGATIVE) H 05/02/17 18:00 Urine Methadone Screen Negative (NEGATIVE) 05/02/17 18:00 Ur Barbiturates Screen Negative (NEGATIVE) 05/02/17 18:00 Ur Phencyclidine Scrn Negative (NEGATIVE) 05/02/17 18:00 Ur Amphetamines Screen Negative (NEGATIVE) 05/02/17 18:00 U Benzodiazepines Scrn Negative (NEGATIVE) 05/02/17 18:00 U Oth Cocaine Metabols Negative (NEGATIVE) 05/02/17 18:00 U Cannabinoids Screen Negative (NEGATIVE) 05/02/17 18:00 - Hospital Course Hospital Course: Pt is seen and evaluated, pt is for discharge on IV ABs might need left nephrectomy- kidney chronic source of pain, infection Discharge Exam - Head Exam Head Exam: ATRAUMATIC, NORMAL INSPECTION - Eye Exam Eye Exam: EOMI, Normal appearance, PERRL Pupil Exam: NORMAL ACCOMODATION, PERRL - Respiratory Exam Respiratory Exam: Clear to PA & Lateral - Cardiovascular Exam Cardiovascular Exam: +S1, +S2 - GI/Abdominal Exam GI & Abdominal Exam: Normal Bowel Sounds Discharge Plan - Follow Up Plan Condition: GUARDED Disposition: HOME/ ROUTINE Patient education suggested?: Yes Instructions: Acute Abdominal Pain (DC), Acute Abdominal Pain (GEN)
== END 2017-05-05 18:45 | disposition home or self-care (01) | DRG 320 ==
LOC: C.ER 15:33 → C.9E 18:24 → C.3T 21:35
PROVIDERS: ADMIT Internal Medicine; ATTEND Internal Medicine
PROC: 5A1D70Z Performance of Urinary Filtration, Intermittent, Less than 6 Hours Per Day (ICD-10-PCS; principal; 2017-05-04)
DX: N10 Acute pyelonephritis (principal); I12.0 Hypertensive chronic kidney disease with stage 5 chronic kidney disease or end stage renal disease; N18.6 End stage renal disease; N20.0 Calculus of kidney; F17.210 Nicotine dependence, cigarettes, uncomplicated; F41.9 Anxiety disorder, unspecified; D63.1 Anemia in chronic kidney disease; Z86.711 Personal history of pulmonary embolism; Z87.442 Personal history of urinary calculi; Z87.440 Personal history of urinary (tract) infections; Z90.5 Acquired absence of kidney; Z99.2 Dependence on renal dialysis

== ENCOUNTER 2017-05-06 11:57 | Observation (INO) | payer OTHER ==
[2017-05-06 11:58] VITALS: BMI 29.0
[2017-05-06] MEDS ORDERED: Morphine 4 MG/ML VIAL ONE (13:28)
[2017-05-06 13:47] LABS: ALB/GLOB RATIO 1.1 (1.0-2.1); ALBUMIN 4.3 g/dL (3.5-5.0); BASO % 0.7 % (0.0-2.0); CALCIUM 9.1 mg/dl (8.6-10.4); EOS # 0.1 K/uL (0.0-0.7); EOS % 1.8 % (0.0-4.0); HEMOGLOBIN 10.4 g/dL (12.0-18.0); LYMPH # 1.1 K/uL (1.0-4.3); LYMPH % 18.8 % (20.0-40.0); MEAN CELL VOLUME 92.9 fL (80.0-94.0); MEAN CORPUSCULAR HEMOGLOBIN 30.6 pg (27.0-31.0); MONO # 0.5 K/uL (0.0-0.8); MONO % 9.1 % (0.0-10.0); NEUT # 4.1 K/uL (1.8-7.0); NEUT % 69.6 % (50.0-75.0); RBC 3.4 Mil/uL (4.40-5.90); RED CELL DISTRIBUTION WIDTH 15.2 % (11.5-14.5); WHITE BLOOD COUNT 5.9 K/uL (4.8-10.8)
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
[2017-05-06 16:20] LABS: URINE BACTERIA RARE (<OCC); URINE BILIRUBIN NEGATIVE (NEGATIVE); URINE BLOOD 1+ (NEGATIVE); URINE CLARITY Hazy (Clear); URINE COLOR Yellow (YELLOW); URINE GLUCOSE (UA) NORMAL (Normal); URINE LEUKOCYTE ESTERASE 3+ Leu/uL (Negative); URINE NITRATE NEGATIVE (NEGATIVE); URINE PROTEIN 2+ mg/dL (NEGATIVE); URINE UROBILINOGEN NORMAL mg/dL (0.2-1.0)
[2017-05-06] MEDS ORDERED: Meropenem 1 GM in Sodium Chloride 0.9% 100 ML IVPB ONE (16:33)
--- NOTE | 2017-05-07 00:38 | CP.PCM.PN ---
Subjective - Date & Time of Evaluation Date of Evaluation: 05/06/17 Time of Evaluation: 18:00 - Subjective Subjective: Pt signed out against medical advice yesterday, he was readmitted today. he continues to c/o right flank pain,pyuria and dysuria, he has chills no fever Objective - Vital Signs/Intake and Output Vital Signs (last 24 hours): Temp Pulse Resp BP Pulse Ox 98.1 F 71 19 127/60 97 05/06/17 23:18 05/06/17 23:18 05/06/17 23:18 05/06/17 23:18 05/06/17 23:18 Intake and Output: 05/06/17 05/07/17 18:59 06:59 Intake Total 500 500 Output Total 100 Balance 400 500 - Medications Medications: Current Medications Alprazolam (Xanax) 0.5 mg PO BID [facility] Last Admin: 05/06/17 21:29 Dose: 0.5 mg Heparin Sodium (Porcine) (Heparin) 5,000 units SC Q8 [facility] Last Admin: 05/06/17 21:29 Dose: 5,000 units Meropenem 500 mg/ Sodium (Chloride) 100 mls @ 100 mls/hr IVPB DAILY [facility] Oxycodone/Acetaminophen (Percocet 5/325 Mg Tab) 2 tab PO Q6H PRN PRN Reason: Pain, moderate (4-7) Stop: 05/09/17 19:42 Sevelamer Carbonate (Renvela) 1,600 mg PO TIDCC [facility] Tamsulosin HCl (Flomax) 0.4 mg PO DAILY [facility] - Labs Labs: 05/06/17 13:20 05/06/17 13:20 - Constitutional Appears: No Acute Distress, Chronically Ill - Head Exam Head Exam: ATRAUMATIC, NORMAL INSPECTION, NORMOCEPHALIC - Eye Exam Eye Exam: EOMI, Normal appearance, PERRL Pupil Exam: NORMAL ACCOMODATION, PERRL - Respiratory Exam Respiratory Exam: Clear to Ausculation Bilateral, NORMAL BREATHING PATTERN - Cardiovascular Exam Cardiovascular Exam: REGULAR RHYTHM, +S1, +S2. absent: Murmur - GI/Abdominal Exam GI & Abdominal Exam: Tenderness - Rectal Exam Rectal Exam: Deferred Assessment and Plan (1) Complicated urinary tract infection Status: Acute (2) ESRD on dialysis Status: Acute (3) Abdominal pain Status: Acute (4) Low back pain Status: Acute (5) Pyelonephritis, acute Status: Acute - Assessment and Plan (Free Text) Plan: ID and urology eval continue antibiotics
[2017-05-07] MEDS: Oxycodone/Acetaminophen 5/325 mg Tab PO PRN ×3 (07:41→21:37)
[2017-05-07 08:26] VITALS: RESP 20
[2017-05-07] MEDS: Meropenem 500 MG in Sodium Chloride 0.9% 100 ML IVPB SCH (09:44)
[2017-05-07] MEDS ORDERED: Meropenem 500 MG in Sodium Chloride 0.9% 100 ML IVPB SCH (22:00)
--- NOTE | 2017-05-07 22:31 | CP.PCM.PN ---
Subjective - Date & Time of Evaluation Date of Evaluation: 05/07/17 Time of Evaluation: 14:25 - Subjective Subjective: Pt seen and examined at bedside today Objective - Vital Signs/Intake and Output Vital Signs (last 24 hours): Temp Pulse Resp BP Pulse Ox 97.8 F 78 20 139/66 97 05/07/17 08:23 05/07/17 08:23 05/07/17 08:23 05/07/17 08:23 05/07/17 08:23 Intake and Output: 05/07/17 05/08/17 18:59 06:59 Intake Total 650 Balance 650 - Medications Medications: Current Medications Alprazolam (Xanax) 0.5 mg PO BID [facility] Last Admin: 05/07/17 17:54 Dose: 0.5 mg Heparin Sodium (Porcine) (Heparin) 5,000 units SC Q8 [facility] Last Admin: 05/07/17 21:35 Dose: 5,000 units Meropenem 500 mg/ Sodium (Chloride) 100 mls @ 100 mls/hr IVPB DAILY [facility] Last Admin: 05/07/17 09:44 Dose: 100 mls/hr Oxycodone/Acetaminophen (Percocet 5/325 Mg Tab) 2 tab PO Q6H PRN PRN Reason: Pain, moderate (4-7) Stop: 05/09/17 19:42 Last Admin: 05/07/17 21:37 Dose: 2 tab Sevelamer Carbonate (Renvela) 1,600 mg PO TIDCC [facility] Last Admin: 05/07/17 17:54 Dose: 1,600 mg Tamsulosin HCl (Flomax) 0.4 mg PO DAILY [facility] Last Admin: 05/07/17 09:43 Dose: 0.4 mg - Labs Labs: 05/06/17 13:20 05/06/17 13:20 Assessment and Plan (1) Complicated urinary tract infection Status: Acute (2) ESRD on dialysis Status: Acute (3) Abdominal pain Status: Acute (4) Low back pain Status: Acute (5) Pyelonephritis, acute Status: Acute
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
[2017-05-08 07:57] VITALS: BP 142/67; PULSE 65; TEMP 97.7; O2SAT 96
[2017-05-08] MEDS: Meropenem 500 MG in Sodium Chloride 0.9% 100 ML IVPB SCH (11:05)
--- NOTE | 2017-05-08 11:18 | CP.PCM.PN ---
Subjective - Date & Time of Evaluation Date of Evaluation: 05/08/17 Time of Evaluation: 11:16 - Subjective Subjective: Same pains as previously on TTS dialysis schedule no fevers, chill, or other complaints Objective - Vital Signs/Intake and Output Vital Signs (last 24 hours): Temp Pulse Resp BP Pulse Ox 97.7 F 65 20 142/67 96 05/08/17 07:55 05/08/17 07:55 05/08/17 07:55 05/08/17 07:55 05/08/17 07:55 Intake and Output: 05/08/17 05/08/17 06:59 18:59 Intake Total 470 Balance 470 - Medications Medications: Current Medications Alprazolam (Xanax) 0.5 mg PO BID [facility] Last Admin: 05/08/17 11:05 Dose: 0.5 mg Gabapentin (Neurontin) 300 mg PO DAILY [facility] Heparin Sodium (Porcine) (Heparin) 5,000 units SC Q8 [facility] Last Admin: 05/08/17 05:14 Dose: Not Given Meropenem 500 mg/ Sodium (Chloride) 100 mls @ 100 mls/hr IVPB DAILY [facility] Last Admin: 05/08/17 11:05 Dose: 100 mls/hr Oxycodone/Acetaminophen (Percocet 5/325 Mg Tab) 2 tab PO Q6H PRN PRN Reason: Pain, moderate (4-7) Stop: 05/09/17 19:42 Last Admin: 05/07/17 21:37 Dose: 2 tab Sevelamer Carbonate (Renvela) 1,600 mg PO TIDCC [facility] Last Admin: 05/08/17 09:11 Dose: 1,600 mg Tamsulosin HCl (Flomax) 0.4 mg PO DAILY [facility] Last Admin: 05/08/17 11:05 Dose: 0.4 mg - Labs Labs: 05/06/17 13:20 05/06/17 13:20 - Constitutional Appears: No Acute Distress, Chronically Ill - Head Exam Head Exam: ATRAUMATIC, NORMAL INSPECTION - Eye Exam Eye Exam: EOMI, Normal appearance - Neck Exam Neck Exam: Normal Inspection. absent: Tenderness - Respiratory Exam Respiratory Exam: Clear to Ausculation Bilateral, NORMAL BREATHING PATTERN - Cardiovascular Exam Cardiovascular Exam: REGULAR RHYTHM, +S1 - GI/Abdominal Exam GI & Abdominal Exam: Soft. absent: Tenderness - Back Exam Back Exam: CVA tenderness (L) - Neurological Exam Neurological Exam: Awake, CN II-XII Intact - Skin Skin Exam: Dry, Warm Assessment and Plan (1) ESRD on dialysis Status: Acute (2) Chronic pyelonephritis Status: Acute - Assessment and Plan (Free Text) Plan: Dialysis TTS Try gabapentin for possible neuropathic pains
--- NOTE | 2017-05-08 17:56 | CP.PCM.PN ---
Subjective - Date & Time of Evaluation Date of Evaluation: 05/08/17 Time of Evaluation: 11:00 - Subjective Subjective: Alert, orientedx3, voiding well, no acute pain. Objective - Vital Signs/Intake and Output Vital Signs (last 24 hours): Temp Pulse Resp BP Pulse Ox 97.7 F 65 20 142/67 96 05/08/17 07:55 05/08/17 07:55 05/08/17 07:55 05/08/17 07:55 05/08/17 07:55 Intake and Output: 05/08/17 05/08/17 06:59 18:59 Intake Total 470 600 Balance 470 600 - Labs Labs: 05/06/17 13:20 05/06/17 13:20 Assessment and Plan - Assessment and Plan (Free Text) Assessment: Patient is seen and examined. Alert and orientedx3, ambulatory. Seen by DR Ferro, advised to follow up in his office as outpatient for further treatments. D/W DR Sexton and DR Marc, p[carlo to discharge home on macrodantin, xanax and percocet small amounts. Advised to follow uo with DR Ferro and PMD in 1 week.
--- NOTE | 2017-05-08 23:56 | CP.PCM.DIS ---
Provider - Provider Date of Admission: 05/06/17 16:54 Attending physician: Mikel Marc MD Time Spent in preparation of Discharge (in minutes): 45 Diagnosis - Discharge Diagnosis (1) Complicated urinary tract infection Status: Acute (2) ESRD on dialysis Status: Acute (3) Abdominal pain Status: Acute (4) Low back pain Status: Acute (5) Pyelonephritis, acute Status: Acute Hospital Course - Lab Results Lab Results: Micro Results 05/06/17 14:15 Blood Blood Culture - Preliminary NO GROWTH AFTER 48 HOURS 05/06/17 13:30 Blood Blood Culture - Preliminary NO GROWTH AFTER 48 HOURS 05/06/17 13:21 Urine Urine Culture - Final No Growth (<1,000 CFU/ML) Most Recent Lab Values WBC 5.9 K/uL (4.8-10.8) 05/06/17 13:20 RBC 3.40 Mil/uL (4.40-5.90) L 05/06/17 13:20 Hgb 10.4 g/dL (12.0-18.0) L 05/06/17 13:20 Hct 31.6 % (35.0-51.0) L 05/06/17 13:20 MCV 92.9 fL (80.0-94.0) 05/06/17 13:20 MCH 30.6 pg (27.0-31.0) 05/06/17 13:20 MCHC 33.0 g/dL (33.0-37.0) 05/06/17 13:20 RDW 15.2 % (11.5-14.5) H 05/06/17 13:20 Plt Count 211 K/uL (130-400) 05/06/17 13:20 MPV 8.0 fL (7.2-11.7) 05/06/17 13:20 Neut % (Auto) 69.6 % (50.0-75.0) 05/06/17 13:20 Lymph % (Auto) 18.8 % (20.0-40.0) L 05/06/17 13:20 Robertson % (Auto) 9.1 % (0.0-10.0) 05/06/17 13:20 Eos % (Auto) 1.8 % (0.0-4.0) 05/06/17 13:20 Baso % (Auto) 0.7 % (0.0-2.0) 05/06/17 13:20 Neut # 4.1 K/uL (1.8-7.0) 05/06/17 13:20 Lymph # 1.1 K/uL (1.0-4.3) 05/06/17 13:20 Robertson # 0.5 K/uL (0.0-0.8) 05/06/17 13:20 Eos # 0.1 K/uL (0.0-0.7) 05/06/17 13:20 Baso # 0.0 K/uL (0.0-0.2) 05/06/17 13:20 Sodium 136 mmol/L (132-148) 05/06/17 13:20 Potassium 4.3 mmol/L (3.6-5.2) 05/06/17 13:20 Chloride 95 mmol/L (98-107) L 05/06/17 13:20 Carbon Dioxide 30 mmol/L (22-30) 05/06/17 13:20 Anion Gap 16 (10-20) 05/06/17 13:20 BUN 24 mg/dL (9-20) H 05/06/17 13:20 Creatinine 4.9 mg/dL (0.8-1.5) H 05/06/17 13:20 Est GFR ( Amer) 16 05/06/17 13:20 Est GFR (Non-Af Amer) 13 05/06/17 13:20 Random Glucose 84 mg/dL (75-110) 05/06/17 13:20 Calcium 9.1 mg/dl (8.6-10.4) 05/06/17 13:20 Total Bilirubin 0.9 mg/dL (0.2-1.3) 05/06/17 13:20 AST 22 U/L (17-59) 05/06/17 13:20 ALT 28 U/L (21-72) 05/06/17 13:20 Alkaline Phosphatase 93 U/L (38-126) 05/06/17 13:20 Total Protein 8.3 g/dL (6.3-8.3) 05/06/17 13:20 Albumin 4.3 g/dL (3.5-5.0) 05/06/17 13:20 Globulin 4.0 gm/dL (2.2-3.9) H 05/06/17 13:20 Albumin/Globulin Ratio 1.1 (1.0-2.1) 05/06/17 13:20 Lipase 42 U/L (23-300) 05/06/17 13:20 Urine Color Yellow (YELLOW) 05/06/17 15:59 Urine Clarity Hazy (Clear) 05/06/17 15:59 Urine pH 9.0 (5.0-8.0) 05/06/17 15:59 Ur Specific [place] 1.008 (1.003-1.030) 05/06/17 15:59 Urine Protein 2+ mg/dL (NEGATIVE) H 05/06/17 15:59 Urine Glucose (UA) Normal mg/dL (Normal) 05/06/17 15:59 Urine Ketones Negative mg/dL (NEGATIVE) 05/06/17 15:59 Urine Blood 1+ (NEGATIVE) H 05/06/17 15:59 Urine Nitrate Negative (NEGATIVE) 05/06/17 15:59 Urine Bilirubin Negative (NEGATIVE) 05/06/17 15:59 Urine Urobilinogen Normal mg/dL (0.2-1.0) 05/06/17 15:59 Ur Leukocyte Esterase 3+ Charleen/uL (Negative) H 05/06/17 15:59 Urine WBC (Auto) 429 /hpf (0-5) H 05/06/17 15:59 Urine RBC (Auto) 35 /hpf (0-3) H 05/06/17 15:59 Urine Bacteria Rare (<OCC) 05/06/17 15:59 - Hospital Course Hospital Course: Patient is seen and examined. Alert and orientedx3, ambulatory. Seen by DR Ferro, advised to follow up in his office as outpatient for further treatments. plan to discharge home on macrodantin, xanax and percocet small amounts. Advised to follow uo with DR Ferro and PMD in 1 week. Discharge Exam - Head Exam Head Exam: ATRAUMATIC, NORMAL INSPECTION - Eye Exam Eye Exam: EOMI, Normal appearance, PERRL Pupil Exam: NORMAL ACCOMODATION, PERRL - ENT Exam ENT Exam: Mucous Membranes Moist - Respiratory Exam Respiratory Exam: Clear to PA & Lateral, NORMAL BREATHING PATTERN - Cardiovascular Exam Cardiovascular Exam: REGULAR RHYTHM, +S1, +S2 - GI/Abdominal Exam GI & Abdominal Exam: Normal Bowel Sounds - Neurological Exam Neurological exam: Alert, CN II-XII Intact, Normal Gait, Oriented x3, Reflexes Normal - Psychiatric Exam Psychiatric exam: Normal Affect, Normal Mood Discharge Plan - Discharge Medications Prescriptions: Nitrofurantoin Macrocrystal [Macrodantin] 50 mg PO BID #20 capsule oxyCODONE/Acetaminophen [Percocet 5/325 mg Tab] 1 tab PO Q6H PRN #20 tab PRN Reason: pain Pantoprazole [Protonix EC Tab] 40 mg PO DAILY #30 ect Sevelamer Carbonate [Renvela] 1,600 mg PO TID #90 tab Alprazolam [Xanax] 0.5 mg PO Q12H PRN #20 tab PRN Reason: Anxiety - Follow Up Plan Condition: FAIR Disposition: HOME/ ROUTINE Instructions: Oxycodone/Acetaminophen (By mouth), Alprazolam (By mouth), Sevelamer (By mouth), Nitrofurantoin Macrocrystals (By mouth), Urinary Tract Infection in Men (DC), Renal Colic (GEN)
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
--- NOTE | 2017-05-11 19:59 | CARD ---
APPROVED REPORT EKG Measurement Heart [id number] <Conclusion> Normal sinus rhythm Voltage criteria for left ventricular hypertrophy Abnormal ECG
--- NOTE | 2017-06-06 09:35 | HP ---
DATE: CHIEF COMPLAINT: Abdominal pain, flank pain. HISTORY OF PRESENT ILLNESS: This is a 47-year-old male well known to me with history of end-stage renal disease, on hemodialysis and hepatitis C and the patient has bilateral nephrolithiasis and he underwent nephrectomy on the left side and then, he is also having now right flank pain, which has been persistent, radiating to the right loin and groin associated with dysuria, nausea, urinary symptom, generalized weakness, fever, chills, tiredness, anorexia, malaise and fatigue. Pain has been escalating. The patient has been seeing his urologist on an outpatient basis. He denies any chest pain, palpitation. He denies any weakness, dizziness. He denies any history of hematuria, pyuria. He denies any sneezing, itchy eyes, itchy nose. PAST MEDICAL HISTORY: Hepatitis C, nephrolithiasis with end-stage renal disease due to nephrolithiasis, anemia, hypertension. SOCIAL HISTORY: Smokes, drinks and he denies drug abuse on the street. PHYSICAL EXAMINATION GENERAL: A young, middle aged male, in moderate distress. VITAL SIGNS: Blood pressure 161/85, pulse 72, respiratory rate 20, temperature 98.9. SKIN: Has tattoos, no bruises, no purpura. He has a scar on the left flank of old nephrectomy. HEENT: Atraumatic and normocephalic. Negative pallor. Negative jaundice. Extraocular movements are intact. NECK: Supple. No JVD. LUNGS: Clear. No rales or rhonchi. CARDIOVASCULAR SYSTEM: S1, S2 regular. No heaves, no thrill. ABDOMEN: Soft, nontender. Bowel sounds are positive. RECTAL: No masses, no bleeding. Normal prostate size. CENTRAL NERVOUS SYSTEM: Normal. ASSESSMENT: 1. Nephrolithiasis, renal colic. 2. Rule out pyelonephritis. 3. Hypertension. 4. End-stage renal disease, on hemodialysis. PLAN: Admit, detailed orders written, seen and examined. Mikel Marc MD
== END 2017-05-08 16:30 | disposition home or self-care (01) ==
LOC: C.ER 11:57 → INTOOBSV 16:54 → C.3T 16:54
PROVIDERS: ADMIT Internal Medicine; ATTEND Internal Medicine
DX: N10 Acute pyelonephritis (principal); I12.0 Hypertensive chronic kidney disease with stage 5 chronic kidney disease or end stage renal disease; N18.6 End stage renal disease; N11.9 Chronic tubulo-interstitial nephritis, unspecified; F41.9 Anxiety disorder, unspecified; N20.0 Calculus of kidney; F17.210 Nicotine dependence, cigarettes, uncomplicated; M54.5 Low back pain; Z86.711 Personal history of pulmonary embolism; Z99.2 Dependence on renal dialysis; Z87.442 Personal history of urinary calculi; Z87.440 Personal history of urinary (tract) infections; Z90.5 Acquired absence of kidney; Z87.81 Personal history of (healed) traumatic fracture
CPT/HCPCS: 36415; 80053; 81001; 83690; 85025; 87040; 87086; 93005; 96374; 96376; 99285; G0378; J1644; J2185; J2270

== ENCOUNTER 2017-06-13 15:25 | Inpatient (IN) | payer OTHER ==
[2017-06-13 15:25] VITALS: BMI 29.0
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
[2017-06-13] MEDS ORDERED: Morphine 4 MG/ML VIAL ONE (18:46)
[2017-06-13 18:54] LABS: BASO # 0.1 K/uL (0.0-0.2); BASO % 1.5 % (0.0-2.0); EOS # 0.1 K/uL (0.0-0.7); EOS % 4.2 % (0.0-4.0); HEMOGLOBIN 8.6 g/dL (12.0-18.0); LYMPH # 1.2 K/uL (1.0-4.3); LYMPH % 34.5 % (20.0-40.0); MEAN CORPUSCULAR HGB CONC 33.8 g/dL (33.0-37.0); MEAN PLATELET VOLUME 6.9 fL (7.2-11.7); MONO # 0.4 K/uL (0.0-0.8); MONO % 12.5 % (0.0-10.0); NEUT # 1.7 K/uL (1.8-7.0); NEUT % 47.3 % (50.0-75.0); NRBC % 0.1 % (0.0-2.0); RBC 2.68 Mil/uL (4.40-5.90); RED CELL DISTRIBUTION WIDTH 17.3 % (11.5-14.5); WHITE BLOOD COUNT 3.5 K/uL (4.8-10.8)
[2017-06-13 18:56] LABS: MEAN CELL VOLUME 94.9 fL (80.0-94.0)
[2017-06-13 18:58] LABS: PROTHROMBIN TIME 11.7 SECONDS (9.7-12.2)
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
[2017-06-13 19:03] LABS: CALCIUM 8.6 mg/dl (8.6-10.4)
[2017-06-13 19:05] LABS: ALB/GLOB RATIO 0.9 (1.0-2.1); ALBUMIN 3.8 g/dL (3.5-5.0)
[2017-06-13 19:51] LABS: URINE BILIRUBIN NEGATIVE (NEGATIVE); URINE BLOOD 1+ (NEGATIVE); URINE CLARITY Turbid (Clear); URINE COLOR Yellow (YELLOW); URINE GLUCOSE (UA) NORMAL (Normal); URINE LEUKOCYTE ESTERASE 3+ Leu/uL (Negative); URINE NITRATE NEGATIVE (NEGATIVE); URINE PROTEIN 2+ mg/dL (NEGATIVE); URINE UROBILINOGEN NORMAL mg/dL (0.2-1.0); WBC CLUMPS MANY /hpf
[2017-06-13] MEDS ORDERED: Piperacillin/Tazobact 3.375 gm 100 ML IVPB STA (21:17)
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
[2017-06-13] MEDS ORDERED: Piperacill/Tazo 3.375gm in Dex 3.375 GM/50 ML BAG IVPB ONE (22:00)
[2017-06-13] MEDS: oxyCODONE 40 mg ER Tab (oxyCONTIN) PO SCH (22:48)
[2017-06-14] MEDS: Oxycodone/Acetaminophen 5/325 mg Tab PO PRN ×2 (06:05→15:04)
[2017-06-14] MEDS: oxyCODONE 40 mg ER Tab (oxyCONTIN) PO SCH ×2 (10:52→21:29)
[2017-06-14] MEDS: Pantoprazole 40 mg EC Tab PO SCH (10:52)
[2017-06-14] MEDS ORDERED: Epoetin Alfa 10,000 unit/ml Dialysis SC ONE (15:36)
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
--- NOTE | 2017-06-14 23:52 | CP.PCM.PN ---
Subjective - Date & Time of Evaluation Date of Evaluation: 06/14/17 Time of Evaluation: 18:35 - Subjective Subjective: Pt seen and evaluated c/o intense abdominal pain, is afebrile, on antibiotics per ID, c/o dysuria, his Hb is low, wbc count in urine is over 2000, pending cultures Objective - Vital Signs/Intake and Output Vital Signs (last 24 hours): Temp Pulse Resp BP Pulse Ox 98.6 F 69 20 119/61 98 06/14/17 15:15 06/14/17 15:15 06/14/17 15:15 06/14/17 15:15 06/14/17 15:15 Intake and Output: 06/14/17 06/15/17 18:59 06:59 Intake Total 580 100 Balance 580 100 - Medications Medications: Current Medications Alprazolam (Xanax) 0.5 mg PO Q12H PRN PRN Reason: Anxiety Heparin Sodium (Porcine) (Heparin) 5,000 units SC Q8 [facility] Last Admin: 06/14/17 21:29 Dose: 5,000 units Ceftriaxone Sodium 1 gm/ (Sodium Chloride) 100 mls @ 100 mls/hr IVPB DAILY [facility] Last Admin: 06/14/17 10:59 Dose: 100 mls/hr Oxycodone HCl (Oxycontin Extended Release Tab) 40 mg PO Q12 [facility] Last Admin: 06/14/17 21:29 Dose: 40 mg Oxycodone/Acetaminophen (Percocet 5/325 Mg Tab) 1 tab PO Q4H PRN PRN Reason: Pain, moderate (4-7) Stop: 06/16/17 22:36 Last Admin: 06/14/17 15:04 Dose: 1 tab Pantoprazole Sodium (Protonix Ec Tab) 40 mg PO DAILY [facility] Last Admin: 06/14/17 10:52 Dose: 40 mg Sevelamer Carbonate (Renvela) 1,600 mg PO TID [facility] Last Admin: 06/14/17 17:34 Dose: 1,600 mg Tamsulosin HCl (Flomax) 0.4 mg PO DAILY [facility] Last Admin: 06/14/17 10:52 Dose: 0.4 mg - Labs Labs: 06/13/17 18:43 06/13/17 18:43 PT 11.7 SECONDS (9.7-12.2) 06/13/17 18:43 INR 1.0 06/13/17 18:43 APTT 33 SECONDS (21-34) 06/13/17 18:43 - Constitutional Appears: No Acute Distress - Head Exam Head Exam: ATRAUMATIC, NORMAL INSPECTION, NORMOCEPHALIC - Eye Exam Eye Exam: EOMI, Normal appearance, PERRL Pupil Exam: NORMAL ACCOMODATION, PERRL - Respiratory Exam Respiratory Exam: Clear to Ausculation Bilateral, NORMAL BREATHING PATTERN - Cardiovascular Exam Cardiovascular Exam: REGULAR RHYTHM, +S1, +S2. absent: Murmur - GI/Abdominal Exam GI & Abdominal Exam: Soft, Normal Bowel Sounds. absent: Tenderness - Neurological Exam Neurological Exam: Alert, Awake, CN II-XII Intact, Normal Gait, Oriented x3 Assessment and Plan (1) Pyelonephritis Status: Acute (2) CLARISSA (acute kidney injury) Status: Acute (3) Abdominal pain Status: Acute (4) ESRD (end stage renal disease) Status: Acute (5) Anemia Status: Chronic (6) Urinary tract infection Status: Suspected
[2017-06-15] MEDS: Oxycodone/Acetaminophen 5/325 mg Tab PO PRN ×3 (05:20→19:22)
[2017-06-15] MEDS: oxyCODONE 40 mg ER Tab (oxyCONTIN) PO SCH ×2 (10:07→21:18)
[2017-06-15] MEDS: Pantoprazole 40 mg EC Tab PO SCH (10:08)
--- NOTE | 2017-06-15 10:28 | CP.PCM.PN ---
Subjective - Date & Time of Evaluation Date of Evaluation: 06/15/17 Time of Evaluation: 09:30 - Subjective Subjective: PT SEEN FOR HD CONSENT THIS MORNING. PT IS AN ESTABLISHED HD PT AND HAS REC'D IT IN [facility] MANY TIMES BEFORE WITHOUT COMPLICATIONS. PT UNDERSTANDS THE BENEFITS/RISKS OF HD TODAY. HE IS IN AGREEMENT. CONSENT SIGNED WITH PT, KAVITHA BHAKTA, AND MYSELF. HE WILL HAVE HD TODAY SCHEDULED. NO FURTHER ORDERS. Objective - Vital Signs/Intake and Output Vital Signs (last 24 hours): Temp Pulse Resp BP Pulse Ox 98.2 F 68 20 116/60 97 06/15/17 09:10 06/15/17 09:10 06/15/17 09:10 06/15/17 09:10 06/15/17 09:10 Intake and Output: 06/15/17 06/15/17 06:59 18:59 Intake Total 300 Output Total 300 Balance 0 - Medications Medications: Current Medications Alprazolam (Xanax) 0.5 mg PO Q12H PRN PRN Reason: Anxiety Heparin Sodium (Porcine) (Heparin) 5,000 units SC Q8 [facility] Last Admin: 06/15/17 05:20 Dose: 5,000 units Ceftriaxone Sodium 1 gm/ (Sodium Chloride) 100 mls @ 100 mls/hr IVPB DAILY [facility] Last Admin: 06/15/17 10:08 Dose: Not Given Oxycodone HCl (Oxycontin Extended Release Tab) 40 mg PO Q12 [facility] Last Admin: 06/15/17 10:07 Dose: 40 mg Oxycodone/Acetaminophen (Percocet 5/325 Mg Tab) 1 tab PO Q4H PRN PRN Reason: Pain, moderate (4-7) Stop: 06/16/17 22:36 Last Admin: 06/15/17 05:20 Dose: 1 tab Pantoprazole Sodium (Protonix Ec Tab) 40 mg PO DAILY [facility] Last Admin: 06/15/17 10:08 Dose: Not Given Sevelamer Carbonate (Renvela) 1,600 mg PO TID [facility] Last Admin: 06/15/17 10:08 Dose: Not Given Tamsulosin HCl (Flomax) 0.4 mg PO DAILY [facility] Last Admin: 06/15/17 10:08 Dose: Not Given - Labs Labs: 06/13/17 18:43 06/13/17 18:43 PT 11.7 SECONDS (9.7-12.2) 06/13/17 18:43 INR 1.0 06/13/17 18:43 APTT 33 SECONDS (21-34) 06/13/17 18:43
[2017-06-15] MEDS: Benzocaine/Menthol (Cepacol) Lozenge MT PRN (18:06)
--- NOTE | 2017-06-15 23:00 | CP.PCM.PN ---
Subjective - Date & Time of Evaluation Date of Evaluation: 06/15/17 Time of Evaluation: 18:00 - Subjective Subjective: Pt seen and evaluated, is afebrile UA is neg, but he has substantial amount of wbc in urine, CT abdomen and pelvis shows large stone in kidney, he is for HD Objective - Vital Signs/Intake and Output Vital Signs (last 24 hours): Temp Pulse Resp BP Pulse Ox 98.7 F 72 20 102/53 L 96 06/15/17 16:00 06/15/17 16:00 06/15/17 16:00 06/15/17 16:00 06/15/17 16:00 Intake and Output: 06/15/17 06/16/17 18:59 06:59 Intake Total 480 400 Balance 480 400 - Medications Medications: Current Medications Alprazolam (Xanax) 0.5 mg PO Q12H PRN PRN Reason: Anxiety Benzocaine/Menthol (Cepacol Sore Throat) 1 maggie MT Q3 PRN PRN Reason: Sore Throat Last Admin: 06/15/17 18:06 Dose: 1 maggie Heparin Sodium (Porcine) (Heparin) 5,000 units SC Q8 [facility] Last Admin: 06/15/17 21:18 Dose: 5,000 units Ceftriaxone Sodium 1 gm/ (Sodium Chloride) 100 mls @ 100 mls/hr IVPB DAILY [facility] Last Admin: 06/15/17 10:08 Dose: Not Given Oxycodone HCl (Oxycontin Extended Release Tab) 40 mg PO Q12 [facility] Last Admin: 06/15/17 21:18 Dose: 40 mg Oxycodone/Acetaminophen (Percocet 5/325 Mg Tab) 1 tab PO Q4H PRN PRN Reason: Pain, moderate (4-7) Stop: 06/16/17 22:36 Last Admin: 06/15/17 19:22 Dose: 1 tab Pantoprazole Sodium (Protonix Ec Tab) 40 mg PO DAILY [facility] Last Admin: 06/15/17 10:08 Dose: Not Given Sevelamer Carbonate (Renvela) 1,600 mg PO TID [facility] Last Admin: 06/15/17 17:53 Dose: 1,600 mg Tamsulosin HCl (Flomax) 0.4 mg PO DAILY [facility] Last Admin: 06/15/17 10:08 Dose: Not Given - Labs Labs: 06/13/17 18:43 06/13/17 18:43 PT 11.7 SECONDS (9.7-12.2) 06/13/17 18:43 INR 1.0 06/13/17 18:43 APTT 33 SECONDS (21-34) 06/13/17 18:43 - Constitutional Appears: No Acute Distress - Head Exam Head Exam: ATRAUMATIC, NORMAL INSPECTION, NORMOCEPHALIC - Eye Exam Eye Exam: EOMI, Normal appearance, PERRL Pupil Exam: NORMAL ACCOMODATION, PERRL - Respiratory Exam Respiratory Exam: Clear to Ausculation Bilateral, NORMAL BREATHING PATTERN - Cardiovascular Exam Cardiovascular Exam: REGULAR RHYTHM, +S1, +S2. absent: Murmur - GI/Abdominal Exam GI & Abdominal Exam: Soft, Normal Bowel Sounds. absent: Tenderness Assessment and Plan (1) Pyelonephritis Status: Acute (2) CLARISSA (acute kidney injury) Status: Acute (3) Abdominal pain Status: Acute (4) ESRD (end stage renal disease) Status: Acute (5) Anemia Status: Chronic (6) Urinary tract infection Status: Suspected
--- NOTE | 2017-06-16 02:12 | CON ---
DATE: UROLOGY CONSULTATION UROLOGY CONSULTATION FILLED BY: Dr. Cyndie Ferro. REASON FOR CONSULTATION: Urolithiasis. HISTORY OF PRESENT ILLNESS: Patient is a 47-year-old male with kidney stones. The patient has a history of bilateral urolithiasis. The patient has had progression of his kidney stones and kidney disease. The patient was aware of stones for several years; however, he did not have treatment for the stones. The patient subsequently presented last year with renal failure. He was found to have bilateral staghorn calculi. The patient underwent left percutaneous nephrolithotomy. The patient required embolization for a persistent hematuria. Thereafter, he required left nephrectomy. The patient has been on dialysis for his renal failure. The patient does produce urine. He is uncertain in the amount of urine that he produces. The patient voids with good urinary stream with good control. The patient previously had left flank pain. He reports that the left flank pain has subsided. The patient now has had right flank pain. He reports that he passed a small stone earlier this week. The patient is known to have a right renal staghorn calculus. There has been no recent fever or rigors. The patient has had some weakness. The patient has required analgesics. MEDICATIONS: See attached. No recent hematuria. The patient lives with his and children. PHYSICAL EXAMINATION: GENERAL: Patient is a well-developed, well-nourished middle-aged male. The patient is awake and alert. ABDOMEN: Soft, nontender, nondistended. BACK: No CVA tenderness. IMPRESSION: A 47-year-old male with renal failure. Solitary right kidney with staghorn calculus. The patient is currently on hemodialysis. RECOMMENDATION AND PLAN: Patient may benefit from further urologic intervention. The treatment can be directed towards stone removal. The options of therapy have been explained to the patient including possible percutaneous renal surgery. Possible ureteroscopic renal stone surgery. Further therapy to follow according to patient's clinical course. Thank you for recommending the patient for urology consultation. Cyndie Ferro MD
[2017-06-16] MEDS: Oxycodone/Acetaminophen 5/325 mg Tab PO PRN ×3 (06:02→21:30)
[2017-06-16] MEDS: oxyCODONE 40 mg ER Tab (oxyCONTIN) PO SCH ×2 (09:37→21:31)
[2017-06-16] MEDS: Pantoprazole 40 mg EC Tab PO SCH (09:40)
[2017-06-16] MEDS: Benzocaine/Menthol (Cepacol) Lozenge MT PRN ×2 (10:04→13:20)
--- NOTE | 2017-06-16 12:55 | CP.PCM.PN ---
Subjective - Date & Time of Evaluation Date of Evaluation: 06/16/17 Time of Evaluation: 12:52 - Subjective Subjective: Still with right CVAT Has been afebrile; had passed renal stones stable dialysis 06/15 no new c/o n, v, f, c, diarrhea Objective - Vital Signs/Intake and Output Vital Signs (last 24 hours): Temp Pulse Resp BP Pulse Ox 98.3 F 72 20 149/67 100 06/16/17 08:03 06/16/17 08:03 06/16/17 08:03 06/16/17 08:03 06/16/17 08:03 Intake and Output: 06/16/17 06/16/17 06:59 18:59 Intake Total 400 200 Balance 400 200 - Medications Medications: Current Medications Alprazolam (Xanax) 0.5 mg PO Q12H PRN PRN Reason: Anxiety Benzocaine/Menthol (Cepacol Sore Throat) 1 amggie MT Q3 PRN PRN Reason: Sore Throat Last Admin: 06/16/17 10:04 Dose: 1 maggie Calcium Acetate (Phoslo) 667 mg PO TID [facility] Epoetin Zain (Procrit) 10,000 unit IV TTS [facility] Heparin Sodium (Porcine) (Heparin) 5,000 units SC Q8 [facility] Last Admin: 06/16/17 05:57 Dose: 5,000 units Ceftriaxone Sodium 1 gm/ (Sodium Chloride) 100 mls @ 100 mls/hr IVPB DAILY [facility] Last Admin: 06/16/17 09:40 Dose: 100 mls/hr Oxycodone HCl (Oxycontin Extended Release Tab) 40 mg PO Q12 [facility] Last Admin: 06/16/17 09:37 Dose: 40 mg Oxycodone/Acetaminophen (Percocet 5/325 Mg Tab) 1 tab PO Q4H PRN PRN Reason: Pain, moderate (4-7) Stop: 06/16/17 22:36 Last Admin: 06/16/17 06:02 Dose: 1 tab Pantoprazole Sodium (Protonix Ec Tab) 40 mg PO DAILY [facility] Last Admin: 06/16/17 09:40 Dose: 40 mg Sevelamer Carbonate (Renvela) 1,600 mg PO TID [facility] Last Admin: 06/16/17 09:39 Dose: 1,600 mg Tamsulosin HCl (Flomax) 0.4 mg PO DAILY [facility] Last Admin: 06/16/17 09:37 Dose: 0.4 mg - Labs Labs: 06/13/17 18:43 06/13/17 18:43 PT 11.7 SECONDS (9.7-12.2) 06/13/17 18:43 INR 1.0 06/13/17 18:43 APTT 33 SECONDS (21-34) 06/13/17 18:43 - Constitutional Appears: Non-toxic, Chronically Ill - Head Exam Head Exam: NORMAL INSPECTION, NORMOCEPHALIC - Eye Exam Eye Exam: EOMI, Normal appearance - Neck Exam Neck Exam: Normal Inspection. absent: Tenderness - Respiratory Exam Respiratory Exam: Clear to Ausculation Bilateral, NORMAL BREATHING PATTERN - Cardiovascular Exam Cardiovascular Exam: REGULAR RHYTHM, +S1 - GI/Abdominal Exam GI & Abdominal Exam: Soft. absent: Tenderness - Extremities Exam Extremities Exam: Normal Inspection. absent: Tenderness - Neurological Exam Neurological Exam: Awake, CN II-XII Intact - Skin Skin Exam: Warm. absent: Dry Assessment and Plan (1) Pyelonephritis Status: Acute (2) ESRD on dialysis Status: Acute (3) Hypertension Status: Acute (4) S/p nephrectomy Status: Acute - Assessment and Plan (Free Text) Plan: Dialysis TTS IV ABs Would consider right nephrectomy - right kidney would be problematic for renal transplant in future
--- NOTE | 2017-06-16 22:40 | CP.PCM.PN ---
Subjective - Date & Time of Evaluation Date of Evaluation: 06/16/17 Time of Evaluation: 18:40 - Subjective Subjective: Pt seen and examined, has b/l flank pain, more on right side, afebrile on rocephin Objective - Vital Signs/Intake and Output Vital Signs (last 24 hours): Temp Pulse Resp BP Pulse Ox 98.2 F 77 20 122/64 98 06/16/17 15:00 06/16/17 15:00 06/16/17 15:00 06/16/17 15:00 06/16/17 15:00 Intake and Output: 06/16/17 06/17/17 18:59 06:59 Intake Total 1000 150 Balance 1000 150 - Medications Medications: Current Medications Alprazolam (Xanax) 0.5 mg PO Q12H PRN PRN Reason: Anxiety Benzocaine/Menthol (Cepacol Sore Throat) 1 maggie MT Q3 PRN PRN Reason: Sore Throat Last Admin: 06/16/17 13:20 Dose: 1 maggie Calcium Acetate (Phoslo) 667 mg PO TID [facility] Last Admin: 06/16/17 17:30 Dose: 667 mg Epoetin Zain (Procrit) 10,000 unit IV TTS [facility] Heparin Sodium (Porcine) (Heparin) 5,000 units SC Q8 [facility] [place] Last Admin: 06/16/17 21:31 Dose: 5,000 units Ceftriaxone Sodium 1 gm/ (Sodium Chloride) 100 mls @ 100 mls/hr IVPB DAILY [facility] [place] Last Admin: 06/16/17 09:40 Dose: 100 mls/hr Oxycodone HCl (Oxycontin Extended Release Tab) 40 mg PO Q12 [facility] Last Admin: 06/16/17 21:31 Dose: 40 mg Pantoprazole Sodium (Protonix Ec Tab) 40 mg PO DAILY [facility] [place] Last Admin: 06/16/17 09:40 Dose: 40 mg Sevelamer Carbonate (Renvela) 1,600 mg PO TID [facility] Last Admin: 06/16/17 17:30 Dose: 1,600 mg Tamsulosin HCl (Flomax) 0.4 mg PO DAILY [facility] Last Admin: 06/16/17 09:37 Dose: 0.4 mg - Labs Labs: 06/13/17 18:43 06/13/17 18:43 PT 11.7 SECONDS (9.7-12.2) 06/13/17 18:43 INR 1.0 06/13/17 18:43 APTT 33 SECONDS (21-34) 06/13/17 18:43 - Constitutional Appears: No Acute Distress - Head Exam Head Exam: ATRAUMATIC, NORMAL INSPECTION, NORMOCEPHALIC - Eye Exam Eye Exam: EOMI, Normal appearance, PERRL Pupil Exam: NORMAL ACCOMODATION, PERRL - Respiratory Exam Respiratory Exam: Clear to Ausculation Bilateral, NORMAL BREATHING PATTERN - Cardiovascular Exam Cardiovascular Exam: REGULAR RHYTHM, +S1, +S2. absent: Murmur - GI/Abdominal Exam GI & Abdominal Exam: Soft, Normal Bowel Sounds. absent: Tenderness - Exam Additional comments: positive CVa tenderness Assessment and Plan (1) Pyelonephritis Status: Acute (2) CLARISSA (acute kidney injury) Status: Acute (3) Abdominal pain Status: Acute (4) ESRD (end stage renal disease) Status: Acute (5) Anemia Status: Chronic (6) Urinary tract infection Status: Suspected
[2017-06-17] MEDS: Oxycodone/Acetaminophen 5/325 mg Tab PO PRN ×4 (09:05→23:02)
[2017-06-17] MEDS: oxyCODONE 40 mg ER Tab (oxyCONTIN) PO SCH ×2 (09:30→21:52)
[2017-06-17] MEDS: Pantoprazole 40 mg EC Tab PO SCH (09:30)
--- NOTE | 2017-06-17 11:11 | CP.PCM.PN ---
Subjective - Date & Time of Evaluation Date of Evaluation: 06/17/17 Time of Evaluation: 11:09 - Subjective Subjective: Still with right CVAT Wants nephrectomy Due for HD today Hg low- will check iron stores as pt on ESAs Objective - Vital Signs/Intake and Output Vital Signs (last 24 hours): Temp Pulse Resp BP Pulse Ox 98.8 F 67 20 133/77 97 06/17/17 08:07 06/17/17 08:07 06/17/17 08:07 06/17/17 08:07 06/17/17 08:07 Intake and Output: 06/17/17 06/17/17 06:59 18:59 Intake Total 150 50 Balance 150 50 - Medications Medications: Current Medications Alprazolam (Xanax) 0.5 mg PO Q12H PRN PRN Reason: Anxiety Benzocaine/Menthol (Cepacol Sore Throat) 1 maggie MT Q3 PRN PRN Reason: Sore Throat Last Admin: 06/16/17 13:20 Dose: 1 maggie Calcium Acetate (Phoslo) 667 mg PO TID [facility] Last Admin: 06/17/17 09:30 Dose: 667 mg Epoetin Zain (Procrit) 10,000 unit IV TTS [facility] Heparin Sodium (Porcine) (Heparin) 5,000 units SC Q8 [facility] Ceftriaxone Sodium 1 gm/ (Sodium Chloride) 100 mls @ 100 mls/hr IVPB DAILY [facility] Last Admin: 06/17/17 10:55 Dose: 100 mls/hr Oxycodone HCl (Oxycontin Extended Release Tab) 40 mg PO Q12 [facility] Last Admin: 06/17/17 09:30 Dose: 40 mg Oxycodone/Acetaminophen (Percocet 5/325 Mg Tab) 1 tab PO Q4H PRN PRN Reason: Pain, moderate (4-7) Stop: 06/20/17 08:38 Last Admin: 06/17/17 09:05 Dose: 1 tab Pantoprazole Sodium (Protonix Ec Tab) 40 mg PO DAILY [facility] Last Admin: 06/17/17 09:30 Dose: 40 mg Sevelamer Carbonate (Renvela) 1,600 mg PO TID [facility] Last Admin: 06/17/17 09:29 Dose: 1,600 mg Tamsulosin HCl (Flomax) 0.4 mg PO DAILY [facility] Last Admin: 06/17/17 09:30 Dose: 0.4 mg - Labs Labs: 06/13/17 18:43 06/13/17 18:43 PT 11.7 SECONDS (9.7-12.2) 06/13/17 18:43 INR 1.0 06/13/17 18:43 APTT 33 SECONDS (21-34) 06/13/17 18:43 - Constitutional Appears: No Acute Distress, Chronically Ill - Head Exam Head Exam: ATRAUMATIC, NORMAL INSPECTION - Eye Exam Eye Exam: EOMI, Normal appearance - Neck Exam Neck Exam: Normal Inspection. absent: Tenderness - Respiratory Exam Respiratory Exam: Clear to Ausculation Bilateral, NORMAL BREATHING PATTERN - Cardiovascular Exam Cardiovascular Exam: REGULAR RHYTHM, +S1 - GI/Abdominal Exam GI & Abdominal Exam: Soft. absent: Tenderness - Extremities Exam Extremities Exam: Normal Inspection. absent: Tenderness - Back Exam Back Exam: CVA tenderness (R) - Neurological Exam Neurological Exam: Alert, CN II-XII Intact - Skin Skin Exam: Dry, Warm Assessment and Plan (1) Pyelonephritis Status: Acute (2) ESRD on dialysis Status: Acute (3) Hypertension Status: Acute (4) S/p nephrectomy Status: Acute - Assessment and Plan (Free Text) Plan: Dialysis today continue IV ABs check iron stores consider nephrectomy
[2017-06-17] MEDS: Epoetin Alfa 10,000 unit/ml Dialysis IV SCH (15:45)
--- NOTE | 2017-06-17 22:00 | CP.PCM.PN ---
Subjective - Date & Time of Evaluation Date of Evaluation: 06/17/17 Time of Evaluation: 18:20 - Subjective Subjective: Pt seen and examined, has b/l flank pain, more on right side, afebrile on rocephin, pt is anemic, low iron levels, pt wants neprectomy, seen by urology too Objective - Vital Signs/Intake and Output Vital Signs (last 24 hours): Temp Pulse Resp BP Pulse Ox 98.4 F 68 21 106/59 L 98 06/17/17 17:20 06/17/17 17:20 06/17/17 17:20 06/17/17 17:20 06/17/17 17:20 Intake and Output: 06/17/17 06/18/17 18:59 06:59 Intake Total 290 Balance 290 - Medications Medications: Current Medications Alprazolam (Xanax) 0.5 mg PO Q12H PRN PRN Reason: Anxiety Benzocaine/Menthol (Cepacol Sore Throat) 1 maggie MT Q3 PRN PRN Reason: Sore Throat Last Admin: 06/16/17 13:20 Dose: 1 maggie Calcium Acetate (Phoslo) 667 mg PO TID [facility] Last Admin: 06/17/17 17:55 Dose: 667 mg Epoetin Zain (Procrit) 10,000 unit IV TTS [facility] Last Admin: 06/17/17 15:45 Dose: 10,000 unit Heparin Sodium (Porcine) (Heparin) 5,000 units SC Q8 [facility] Last Admin: 06/17/17 21:51 Dose: 5,000 units Ceftriaxone Sodium 1 gm/ (Sodium Chloride) 100 mls @ 100 mls/hr IVPB DAILY [facility] Last Admin: 06/17/17 10:55 Dose: 100 mls/hr Oxycodone HCl (Oxycontin Extended Release Tab) 40 mg PO Q12 [facility] Last Admin: 06/17/17 21:52 Dose: 40 mg Oxycodone/Acetaminophen (Percocet 5/325 Mg Tab) 1 tab PO Q4H PRN PRN Reason: Pain, moderate (4-7) Stop: 06/20/17 08:38 Last Admin: 06/17/17 19:05 Dose: 1 tab Pantoprazole Sodium (Protonix Ec Tab) 40 mg PO DAILY [facility] Last Admin: 01/06/18 09:30 Dose: 40 mg Sevelamer Carbonate (Renvela) 1,600 mg PO TID [facility] Last Admin: 06/17/17 17:55 Dose: 1,600 mg Tamsulosin HCl (Flomax) 0.4 mg PO DAILY [facility] Last Admin: 06/17/17 09:30 Dose: 0.4 mg - Labs Labs: 06/13/17 18:43 06/13/17 18:43 PT 11.7 SECONDS (9.7-12.2) 06/13/17 18:43 INR 1.0 06/13/17 18:43 APTT 33 SECONDS (21-34) 06/13/17 18:43 - Constitutional Appears: No Acute Distress - Head Exam Head Exam: ATRAUMATIC, NORMAL INSPECTION, NORMOCEPHALIC - Eye Exam Eye Exam: EOMI, Normal appearance, PERRL Pupil Exam: NORMAL ACCOMODATION, PERRL - Respiratory Exam Respiratory Exam: Clear to Ausculation Bilateral, NORMAL BREATHING PATTERN - Cardiovascular Exam Cardiovascular Exam: REGULAR RHYTHM, +S1, +S2. absent: Murmur - GI/Abdominal Exam GI & Abdominal Exam: Soft, Normal Bowel Sounds. absent: Tenderness - Exam Additional comments: positive CVA tenderness Assessment and Plan (1) Pyelonephritis Status: Acute (2) CLARISSA (acute kidney injury) Status: Acute (3) Abdominal pain Status: Acute (4) ESRD (end stage renal disease) Status: Acute (5) Anemia Status: Chronic (6) Urinary tract infection Status: Suspected
[2017-06-18] MEDS: Oxycodone/Acetaminophen 5/325 mg Tab PO PRN ×4 (06:54→21:16)
[2017-06-18] MEDS: Pantoprazole 40 mg EC Tab PO SCH (09:50)
[2017-06-18] MEDS: oxyCODONE 40 mg ER Tab (oxyCONTIN) PO SCH ×2 (09:50→22:13)
[2017-06-18] MEDS: Benzocaine/Menthol (Cepacol) Lozenge MT PRN (09:52)
--- NOTE | 2017-06-18 22:46 | CP.PCM.PN ---
Subjective - Date & Time of Evaluation Date of Evaluation: 06/18/17 Time of Evaluation: 18:00 - Subjective Subjective: Pt seen and examined, is anemic, Fe levels low, no active GI bleed, c/o b/l flank pain, he remains on antibiotics and has to be seen by urologist Objective - Vital Signs/Intake and Output Vital Signs (last 24 hours): Temp Pulse Resp BP Pulse Ox 98.3 F 74 18 148/69 99 06/18/17 16:58 06/18/17 16:58 06/18/17 16:58 06/18/17 16:58 06/18/17 16:58 Intake and Output: 06/18/17 06/19/17 18:59 06:59 Intake Total 480 Balance 480 - Medications Medications: Current Medications Alprazolam (Xanax) 0.5 mg PO Q12H PRN PRN Reason: Anxiety Benzocaine/Menthol (Cepacol Sore Throat) 1 maggie MT Q3 PRN PRN Reason: Sore Throat Last Admin: 06/18/17 09:52 Dose: 1 maggie Calcium Acetate (Phoslo) 667 mg PO TID [facility] Last Admin: 06/18/17 17:19 Dose: 667 mg Epoetin Zain (Procrit) 10,000 unit IV TTS [facility] Last Admin: 06/17/17 15:45 Dose: 10,000 unit Ferrous Sulfate (Feosol) 325 mg PO TID [facility] Last Admin: 06/18/17 17:18 Dose: 325 mg Heparin Sodium (Porcine) (Heparin) 5,000 units SC Q8 [facility] Last Admin: 06/18/17 22:17 Dose: 5,000 units Ceftriaxone Sodium 1 gm/ (Sodium Chloride) 100 mls @ 100 mls/hr IVPB DAILY [facility] Last Admin: 06/18/17 10:26 Dose: 100 mls/hr Oxycodone HCl (Oxycontin Extended Release Tab) 40 mg PO Q12 [facility] Last Admin: 06/18/17 22:13 Dose: 40 mg Oxycodone/Acetaminophen (Percocet 5/325 Mg Tab) 1 tab PO Q4H PRN PRN Reason: Pain, moderate (4-7) Stop: 06/20/17 08:38 Last Admin: 06/18/17 21:16 Dose: 1 tab Pantoprazole Sodium (Protonix Ec Tab) 40 mg PO DAILY [facility] Last Admin: 06/18/17 09:50 Dose: 40 mg Sevelamer Carbonate (Renvela) 1,600 mg PO TID [facility] Last Admin: 06/18/17 17:19 Dose: 1,600 mg Tamsulosin HCl (Flomax) 0.4 mg PO DAILY [facility] Last Admin: 06/18/17 09:51 Dose: 0.4 mg - Labs Labs: 06/13/17 18:43 06/13/17 18:43 PT 11.7 SECONDS (9.7-12.2) 06/13/17 18:43 INR 1.0 06/13/17 18:43 APTT 33 SECONDS (21-34) 06/13/17 18:43 - Constitutional Appears: No Acute Distress - Head Exam Head Exam: ATRAUMATIC, NORMAL INSPECTION, NORMOCEPHALIC - Eye Exam Eye Exam: EOMI, Normal appearance, PERRL Pupil Exam: NORMAL ACCOMODATION, PERRL - ENT Exam ENT Exam: Mucous Membranes Moist - Respiratory Exam Respiratory Exam: Clear to Ausculation Bilateral, NORMAL BREATHING PATTERN - Cardiovascular Exam Cardiovascular Exam: REGULAR RHYTHM, +S1, +S2. absent: Murmur - GI/Abdominal Exam GI & Abdominal Exam: Soft, Normal Bowel Sounds. absent: Tenderness - Psychiatric Exam Psychiatric exam: Normal Affect, Normal Mood - Skin Skin Exam: Pallor Assessment and Plan (1) Pyelonephritis Status: Acute (2) CLARISSA (acute kidney injury) Status: Acute (3) Abdominal pain Status: Acute (4) ESRD (end stage renal disease) Status: Acute (5) Anemia Status: Chronic (6) Urinary tract infection Status: Suspected
[2017-06-19] MEDS: Oxycodone/Acetaminophen 5/325 mg Tab PO PRN ×4 (05:55→23:07)
[2017-06-19 08:42] LABS: HEMOGLOBIN 9.4 g/dL (12.0-18.0); MEAN CELL VOLUME 96.8 fL (80.0-94.0); MEAN CORPUSCULAR HEMOGLOBIN 32.7 pg (27.0-31.0); MEAN CORPUSCULAR HGB CONC 33.8 g/dL (33.0-37.0); MEAN PLATELET VOLUME 7.2 fL (7.2-11.7); RBC 2.88 Mil/uL (4.40-5.90); RED CELL DISTRIBUTION WIDTH 17.5 % (11.5-14.5); WHITE BLOOD COUNT 5.1 K/uL (4.8-10.8)
[2017-06-19] MEDS: Pantoprazole 40 mg EC Tab PO SCH (09:42)
[2017-06-19] MEDS: oxyCODONE 40 mg ER Tab (oxyCONTIN) PO SCH ×2 (09:43→22:09)
--- NOTE | 2017-06-19 12:02 | CP.PCM.PN ---
Subjective - Date & Time of Evaluation Date of Evaluation: 06/19/17 Time of Evaluation: 12:00 - Subjective Subjective: stable dialysis 06/17= UF 1700ml Hg low- iron stores low Still with right CVAT- wants nephrectomy Objective - Vital Signs/Intake and Output Vital Signs (last 24 hours): Temp Pulse Resp BP Pulse Ox 97.6 F 69 20 137/65 100 06/19/17 08:43 06/19/17 08:43 06/19/17 08:43 06/19/17 08:43 06/19/17 08:43 Intake and Output: 06/19/17 06/19/17 06:59 18:59 Intake Total 630 Balance 630 - Medications Medications: Current Medications Alprazolam (Xanax) 0.5 mg PO Q12H PRN PRN Reason: Anxiety Benzocaine/Menthol (Cepacol Sore Throat) 1 maggie MT Q3 PRN PRN Reason: Sore Throat Last Admin: 06/18/17 09:52 Dose: 1 maggie Calcium Acetate (Phoslo) 667 mg PO TID [facility] Last Admin: 06/19/17 09:42 Dose: 667 mg Epoetin Zain (Procrit) 10,000 unit IV TTS [facility] Last Admin: 06/17/17 15:45 Dose: 10,000 unit Ferrous Sulfate (Feosol) 325 mg PO TID [facility] Last Admin: 06/19/17 09:43 Dose: 325 mg Heparin Sodium (Porcine) (Heparin) 5,000 units SC Q8 [facility] Last Admin: 06/19/17 06:01 Dose: 5,000 units Oxycodone HCl (Oxycontin Extended Release Tab) 40 mg PO Q12 [facility] Last Admin: 06/19/17 09:43 Dose: 40 mg Oxycodone/Acetaminophen (Percocet 5/325 Mg Tab) 1 tab PO Q4H PRN PRN Reason: Pain, moderate (4-7) Stop: 06/20/17 08:38 Last Admin: 06/19/17 05:55 Dose: 1 tab Pantoprazole Sodium (Protonix Ec Tab) 40 mg PO DAILY [facility] Last Admin: 06/19/17 09:42 Dose: 40 mg Sevelamer Carbonate (Renvela) 1,600 mg PO TID [facility] Last Admin: 06/19/17 09:42 Dose: 1,600 mg Tamsulosin HCl (Flomax) 0.4 mg PO DAILY [facility] Last Admin: 06/19/17 09:43 Dose: 0.4 mg - Labs Labs: 06/19/17 08:30 06/19/17 08:30 PT 11.7 SECONDS (9.7-12.2) 06/13/17 18:43 INR 1.0 06/13/17 18:43 APTT 33 SECONDS (21-34) 06/13/17 18:43 - Constitutional Appears: Non-toxic, No Acute Distress, Chronically Ill - Head Exam Head Exam: ATRAUMATIC, NORMAL INSPECTION - Eye Exam Eye Exam: EOMI, Normal appearance - Neck Exam Neck Exam: Normal Inspection. absent: Tenderness - Respiratory Exam Respiratory Exam: Clear to Ausculation Bilateral, NORMAL BREATHING PATTERN - Cardiovascular Exam Cardiovascular Exam: REGULAR RHYTHM, +S1 - GI/Abdominal Exam GI & Abdominal Exam: Soft, Tenderness - Extremities Exam Extremities Exam: Normal Inspection. absent: Tenderness - Back Exam Back Exam: CVA tenderness (R) - Neurological Exam Neurological Exam: Alert, CN II-XII Intact - Skin Skin Exam: Dry, Warm Assessment and Plan (1) Pyelonephritis Status: Acute (2) ESRD on dialysis Status: Acute (3) Hypertension Status: Acute (4) S/p nephrectomy Status: Acute - Assessment and Plan (Free Text) Plan: Dialysis TTS Same meds Add IV Fe Await decision on right pyelo- ? nephrectomy
[2017-06-19] MEDS ORDERED: Ferric Sodium Gluconat Complex 62.5 mg/5 ml Vial IVPB SCH (12:15)
[2017-06-19] MEDS: Ferric Sodium Gluconat Complex 125 MG in Sodium Chloride 0.9% 100 ML IVPB SCH (12:45)
--- NOTE | 2017-06-19 14:40 | PCM.URO ---
Urology Progress Note - Objective Lab Studies: Reviewed (urolithiasis plans as above will discuss further plans- - ureteroscopy and laser and eswl and or percutaneous rx and other options available as well) Lab Results Last 24 Hours: Laboratory Results - last 24 hr 06/19/17 06/19/17 08:30 08:30 WBC 5.1 RBC 2.88 L Hgb 9.4 L Hct 27.9 L MCV 96.8 H MCH 32.7 H MCHC 33.8 RDW 17.5 H Plt Count 244 MPV 7.2 Sodium 131 L Potassium 5.8 H Chloride 90 L Carbon Dioxide 29 Anion Gap 17 BUN 74 H Creatinine 10.9 H* D Est GFR ( Amer) 6 Est GFR (Non-Af Amer) 5 Random Glucose 87 Calcium 9.0 Intake & Output: Intake & Output 06/18/17 06/19/17 06/19/17 18:59 06:59 18:59 Intake Total 480 630 Balance 480 630 Intake: Oral 480 630 Other: # Voids Urine, Voided 2 1 # Bowel Movements 1 Vital Signs: Vital Signs - 24 hr 06/18/17 06/18/17 06/19/17 16:58 23:31 08:43 Temperature 98.3 F 98 F 97.6 F Pulse Rate 74 73 69 Respiratory 18 20 20 Rate Blood Pressure 148/69 103/59 L 137/65 O2 Sat by Pulse 99 96 100 Oximetry
[2017-06-19 22:54] LABS: URINE BACTERIA MOD (<OCC); URINE BILIRUBIN NEGATIVE (NEGATIVE); URINE BLOOD 1+ (NEGATIVE); URINE CLARITY Turbid (Clear); URINE COLOR Yellow (YELLOW); URINE GLUCOSE (UA) NORMAL (Normal); URINE LEUKOCYTE ESTERASE 3+ Leu/uL (Negative); URINE NITRATE NEGATIVE (NEGATIVE); URINE PROTEIN 2+ mg/dL (NEGATIVE); URINE UROBILINOGEN NORMAL mg/dL (0.2-1.0)
--- NOTE | 2017-06-19 22:54 | CP.PCM.PN ---
Subjective - Date & Time of Evaluation Date of Evaluation: 06/19/17 Time of Evaluation: 19:00 - Subjective Subjective: Pt seen and evaluated at bedside, pt still have b/l flank pain, seen by urology and she is for OR for nephrolitiasis Objective - Vital Signs/Intake and Output Vital Signs (last 24 hours): Temp Pulse Resp BP Pulse Ox 97.6 F 69 20 137/65 100 06/19/17 08:43 06/19/17 08:43 06/19/17 08:43 06/19/17 08:43 06/19/17 08:43 Intake and Output: 06/19/17 06/20/17 18:59 06:59 Intake Total 700 Balance 700 - Medications Medications: Current Medications Alprazolam (Xanax) 0.5 mg PO Q12H PRN PRN Reason: Anxiety Benzocaine/Menthol (Cepacol Sore Throat) 1 maggie MT Q3 PRN PRN Reason: Sore Throat Last Admin: 06/18/17 09:52 Dose: 1 maggie Calcium Acetate (Phoslo) 667 mg PO TID [facility] Last Admin: 06/19/17 17:32 Dose: 667 mg Epoetin Zain (Procrit) 10,000 unit IV TTS [facility] Last Admin: 06/17/17 15:45 Dose: 10,000 unit Ferrous Sulfate (Feosol) 325 mg PO TID [facility] Last Admin: 06/19/17 17:31 Dose: 325 mg Heparin Sodium (Porcine) (Heparin) 5,000 units SC Q8 [facility] Last Admin: 06/19/17 22:11 Dose: 5,000 units Ferric Sodium Gluconate Complex 125 mg/ Sodium Chloride 110 mls @ 110 mls/hr IVPB DAILY [facility] Stop: 06/25/17 12:01 Last Admin: 06/19/17 12:45 Dose: 110 mls/hr Oxycodone HCl (Oxycontin Extended Release Tab) 40 mg PO Q12 [facility] Last Admin: 06/19/17 22:09 Dose: 40 mg Oxycodone/Acetaminophen (Percocet 5/325 Mg Tab) 1 tab PO Q4H PRN PRN Reason: Pain, moderate (4-7) Stop: 06/20/17 08:38 Last Admin: 06/19/17 17:31 Dose: 1 tab Pantoprazole Sodium (Protonix Ec Tab) 40 mg PO DAILY [facility] Last Admin: 06/19/17 09:42 Dose: 40 mg Sevelamer Carbonate (Renvela) 1,600 mg PO TID [facility] Last Admin: 06/19/17 17:32 Dose: 1,600 mg Tamsulosin HCl (Flomax) 0.4 mg PO DAILY [facility] Last Admin: 06/19/17 09:43 Dose: 0.4 mg - Labs Labs: 06/19/17 08:30 06/19/17 08:30 PT 11.7 SECONDS (9.7-12.2) 06/13/17 18:43 INR 1.0 06/13/17 18:43 APTT 33 SECONDS (21-34) 06/13/17 18:43 Assessment and Plan (1) Pyelonephritis Status: Acute (2) CLARISSA (acute kidney injury) Status: Acute (3) Abdominal pain Status: Acute (4) ESRD (end stage renal disease) Status: Acute (5) Anemia Status: Chronic (6) Urinary tract infection Status: Suspected
[2017-06-20] MEDS: Oxycodone/Acetaminophen 5/325 mg Tab PO PRN ×2 (06:12→19:54)
[2017-06-20] MEDS ORDERED: Ferric Sodium Gluconat Complex 62.5 mg/5 ml Vial ONE (09:35)
[2017-06-20] MEDS: oxyCODONE 40 mg ER Tab (oxyCONTIN) PO SCH ×2 (10:17→22:26)
[2017-06-20] MEDS: Pantoprazole 40 mg EC Tab PO SCH (10:19)
[2017-06-20] MEDS: Ferric Sodium Gluconat Complex 125 MG in Sodium Chloride 0.9% 100 ML IVPB SCH (11:10)
[2017-06-20] MEDS: Epoetin Alfa 10,000 unit/ml Dialysis IV SCH (11:11)
--- NOTE | 2017-06-20 13:21 | CP.PCM.PN ---
Subjective - Date & Time of Evaluation Date of Evaluation: 06/20/17 Time of Evaluation: 13:18 - Subjective Subjective: seen and examined c/o severe back pain, somewhat impoved. good uop labs noted, for hd today urology onboard Objective - Vital Signs/Intake and Output Vital Signs (last 24 hours): Temp Pulse Resp BP Pulse Ox 97.6 F 66 18 142/64 100 06/20/17 12:10 06/20/17 12:10 06/20/17 12:10 06/20/17 12:10 06/20/17 12:10 Intake and Output: 06/20/17 06/20/17 06:59 18:59 Intake Total 450 360 Balance 450 360 - Medications Medications: Current Medications Alprazolam (Xanax) 0.5 mg PO Q12H PRN PRN Reason: Anxiety Benzocaine/Menthol (Cepacol Sore Throat) 1 maggie MT Q3 PRN PRN Reason: Sore Throat Last Admin: 06/18/17 09:52 Dose: 1 maggie Calcium Acetate (Phoslo) 667 mg PO TID [facility] Last Admin: 06/20/17 10:19 Dose: Not Given Epoetin Zain (Procrit) 10,000 unit IV TTS [facility] Last Admin: 06/20/17 11:11 Dose: 10,000 unit Ferrous Sulfate (Feosol) 325 mg PO TID [facility] Last Admin: 06/20/17 10:19 Dose: Not Given Heparin Sodium (Porcine) (Heparin) 5,000 units SC Q8 [facility] Last Admin: 06/20/17 06:13 Dose: Not Given Ferric Sodium Gluconate Complex 125 mg/ Sodium Chloride 110 mls @ 110 mls/hr IVPB DAILY [facility] Stop: 06/25/17 12:01 Last Admin: 06/20/17 11:10 Dose: 110 mls/hr Oxycodone HCl (Oxycontin Extended Release Tab) 40 mg PO Q12 [facility] Last Admin: 06/20/17 10:17 Dose: 40 mg Oxycodone/Acetaminophen (Percocet 5/325 Mg Tab) 1 tab PO Q4H PRN PRN Reason: Pain, severe (8-10) Stop: 06/23/17 12:57 Pantoprazole Sodium (Protonix Ec Tab) 40 mg PO DAILY [facility] Last Admin: 06/20/17 10:19 Dose: Not Given Sevelamer Carbonate (Renvela) 1,600 mg PO TID [facility] Last Admin: 06/20/17 10:19 Dose: Not Given Tamsulosin HCl (Flomax) 0.4 mg PO DAILY [facility] Last Admin: 06/20/17 10:19 Dose: Not Given - Labs Labs: 06/19/17 08:30 06/19/17 08:30 PT 11.7 SECONDS (9.7-12.2) 06/13/17 18:43 INR 1.0 06/13/17 18:43 APTT 33 SECONDS (21-34) 06/13/17 18:43 - Constitutional Appears: No Acute Distress, Chronically Ill - Head Exam Head Exam: NORMAL INSPECTION - Eye Exam Eye Exam: Normal appearance, PERRL - ENT Exam ENT Exam: Mucous Membranes Moist, Normal Exam - Neck Exam Neck Exam: Full ROM, Normal Inspection - Respiratory Exam Respiratory Exam: Clear to Ausculation Bilateral, NORMAL BREATHING PATTERN - Cardiovascular Exam Cardiovascular Exam: REGULAR RHYTHM, RRR - GI/Abdominal Exam GI & Abdominal Exam: Distended, Soft - Extremities Exam Extremities Exam: Normal Inspection (lue avf) - Neurological Exam Neurological Exam: Alert, Awake, Oriented x3 - Psychiatric Exam Psychiatric exam: Normal Affect, Normal Mood - Skin Skin Exam: Intact, Normal Color, Warm Assessment and Plan (1) Pyelonephritis Status: Acute (2) Abdominal pain Status: Acute (3) Chronic pyelonephritis Status: Acute (4) ESRD (end stage renal disease) Status: Acute (5) Hypertension Status: Acute (6) S/p nephrectomy Status: Acute - Assessment and Plan (Free Text) Assessment: hd today tts bp acceptable urology management, ? ESWL
[2017-06-20] MEDS ORDERED: Propofol 10 mg/ml Inj (20 ML) ONE (15:20)
[2017-06-20] MEDS ORDERED: Midazolam 2 MG/2 ML VIAL ONE (15:20)
[2017-06-20] MEDS ORDERED: Iohexol 240 (50 ml) ONE (15:23)
[2017-06-20] MEDS ORDERED: Sodium Chloride 0.9% 1,000 ML IV ONE (15:30)
--- NOTE | 2017-06-20 21:06 | PN ---
DATE: 06/19/2017 This is a followup note. See the previously dictated consult notes and other progress notes that are on the chart as well. Urology input is regarding kidney stones. Mr. Frank is a very pleasant, but extremely noncompliant 47-year-old gentleman. He has had multiple admissions in the hospital for kidney stone disease. He has a complicated history despite quick review. Again, see previous notes. He had initially presented with bilateral stone disease with elevated BUN and creatinine. This was on his way to dialysis. We tried various options and treatments to try as best as possible to preserve kidney. He still does have a right kidney. He actually has had a nephrectomy on the left side. He presents now after multiple episodes of recurrent infections. Urology input is requested regarding further recommendations. See the plans listed below. The patient has a very heavy stone burden in his right kidney. He has asked about removing the kidney. I explained to the patient the benefits. The kidney still makes about close to a liter of urine a day. I's and O's are pending here. It is somewhat difficult to obtain an exact amount. He does void. He has a reasonable flow. He has no major urinary complaints. He has intermittent flank pain. See the previous CT scan, he is noted to have tremendous stone burden. He has a large lower pole staghorn calculus, at least one that is in the lower pole area, plus he has at least branches or other calculi that are noted within the kidney on the right side, and he has a massive amount of hydronephrosis as noted. In the interim, we have discussed options. We have explained to the patient the benefits to preserving nephrons, even if he is a dialysis patient. The more proper correct medical treatment for the stone would be a percutaneous nephrostolithotomy; however, given his history, he is not enthusiastic, specifically, he because of various reasons ended up having a nephrectomy post percutaneous nephrostolithotomy. So, at this point, Urology is making further recommendations. See the plans listed below. Past medical and surgical as listed on the chart. He is currently under the care of Dr. Marc. REVIEW OF SYSTEMS: As listed above. Actually, he has chronic pain, left side and right side, with the kidney was on the left side. He is status post nephrectomy, and on his right side. He does not have any major urinary complaints. No gross hematuria. He does pour out urine probably close to a liter a day and he is not per se on any fluid restriction diet. Socially, he is . His also has questions regarding his care. I have had opportunities to communicate with her as well in the past. PHYSICAL EXAMINATION: GENERAL: This is a well-developed and well-nourished male, in no apparent distress. VITAL SIGNS: As noted. ABDOMEN: Relatively soft. No gross distension. GENITOURINARY: He has a normal circumcised phallus (he has a tattoo on the phallus with the name Olivia on it). Meatus is within normal limits. No testicular masses. RECTAL: Deferred. see below. LABORATORY DATA: The CT scan and labs were all noted. DIAGNOSES: Urolithiasis with a tremendous heavy stone burden. He has a staghorn calculus in the right kidney, lower pole with at least few other extra branches of calculi elsewhere. He has a massive amount of hydronephrosis and he happens to have a relatively thin parenchyma. Given all that, though he still does make some urine a day. He does not able to concentrate in his creatinine and he needs to be on dialysis either way, but at this point, he reports that occasionally this get infected and it bothers him. I discussed the options with him previously and now. I really think he should consider percutaneous nephrostolithotomy, I think that is the better recommendation. Although, there would be concerns with bleeding, certainly significant especially given his history and his renal failure and his platelets, etc. I did discuss with him another option, specifically because he brought it up that he has been here so many times that he would go just to another place. I discussed that, in fact we would encourage to seek out a second opinion. In the interim, he is not sure when he could really go another place. So, after discussing, he is not enthusiastic, but I really think that that would be best for him. I will discuss it again with the patient and his at great length. But in the interim, the plan will be as follows: We will plan for a cysto, retrograde and a possible stent insertion (it is a fairly large stone, so perhaps that we can at least drain the kidney that may make the patient feels somewhat better). That is not a long-term solution. The better treatment would be percutaneous nephrostolithotomy. I did discuss with him other options, including perhaps it is a very soft stone and can be treated with laser lithotripsy and/or ESWL treatment intermittent. I explained that if we are going to take care of it, he may take 10 to 15 treatments. I did discuss the possibility, but I do not really recommend an open pyelolithotomy or nephrostolithotomy. But an open surgical procedure in 2018 is not usual. I explained this in detail. I did discuss perhaps the other alternatives and he could seek out from other doctors, from an academic center, whether here in [place] at [facility] or [facility] or whether he has other possibilities are really discussed at length. I specifically mentioned to him a doctor in [facility] that I send patients to, but he is preferring not to go anywhere else at this point. So, towards this end, the plan would be as follows: We are going to plan for a cystoscopy and stent insertion, we will discuss the timing. I explained to the patient that this is just to put a stent in to drain the kidney if he feels better, but our recommendation is to get further treatment. In the meantime, I did explain to the patient and offer him that I can treat him with a ureteroscope if he is going to refuse percutaneous treatments, and it would take with the ureteroscope and laser lithotripsy multiple, multiple treatments, perhaps 10 to 15 treatments even, but we would do our best to make him stone free if possible. The plan is as follows: 1. Continue antibiotics. 2. Cysto, retrograde, stent insertion, and then further plans to follow. Celso Ferro MD
--- NOTE | 2017-06-20 21:09 | CP.PCM.PN ---
Subjective - Date & Time of Evaluation Date of Evaluation: 06/20/17 Time of Evaluation: 18:00 - Subjective Subjective: seen and examined c/o severe back pain, somewhat impoved. good uop labs noted, for hd today urology onboard Objective - Vital Signs/Intake and Output Vital Signs (last 24 hours): Temp Pulse Resp BP Pulse Ox 97.4 F L 70 11 L 134/62 100 06/20/17 17:20 06/20/17 17:20 06/20/17 17:20 06/20/17 17:20 06/20/17 17:20 Intake and Output: 06/20/17 06/21/17 18:59 06:59 Intake Total 610 Output Total 150 Balance 460 - Medications Medications: Current Medications Alprazolam (Xanax) 0.5 mg PO Q12H PRN PRN Reason: Anxiety Benzocaine/Menthol (Cepacol Sore Throat) 1 maggie MT Q3 PRN PRN Reason: Sore Throat Last Admin: 06/18/17 09:52 Dose: 1 maggie Calcium Acetate (Phoslo) 667 mg PO TID [facility] Last Admin: 06/20/17 18:55 Dose: 667 mg Epoetin Zain (Procrit) 10,000 unit IV TTS [facility] Last Admin: 06/20/17 11:11 Dose: 10,000 unit Ferrous Sulfate (Feosol) 325 mg PO TID [facility] Last Admin: 06/20/17 18:55 Dose: 325 mg Heparin Sodium (Porcine) (Heparin) 5,000 units SC Q8 [facility] Last Admin: 06/20/17 06:13 Dose: Not Given Ferric Sodium Gluconate Complex 125 mg/ Sodium Chloride 110 mls @ 110 mls/hr IVPB DAILY [facility] Stop: 06/25/17 12:01 Last Admin: 06/20/17 11:10 Dose: 110 mls/hr Ceftriaxone Sodium 1 gm/ (Sodium Chloride) 100 mls @ 100 mls/hr IVPB Q24H [facility] Last Admin: 06/20/17 15:40 Dose: 100 mls Oxycodone HCl (Oxycontin Extended Release Tab) 40 mg PO Q12 [facility] Last Admin: 06/20/17 10:17 Dose: 40 mg Oxycodone/Acetaminophen (Percocet 5/325 Mg Tab) 1 tab PO Q4H PRN PRN Reason: Pain, severe (8-10) Stop: 06/23/17 12:57 Last Admin: 06/20/17 19:54 Dose: 1 tab Pantoprazole Sodium (Protonix Ec Tab) 40 mg PO DAILY [facility] Last Admin: 06/20/17 10:19 Dose: Not Given Sevelamer Carbonate (Renvela) 1,600 mg PO TID [facility] Last Admin: 06/20/17 18:55 Dose: 1,600 mg Tamsulosin HCl (Flomax) 0.4 mg PO DAILY [facility] Last Admin: 06/20/17 10:19 Dose: Not Given - Labs Labs: 06/19/17 08:30 06/19/17 08:30 PT 11.7 SECONDS (9.7-12.2) 06/13/17 18:43 INR 1.0 06/13/17 18:43 APTT 33 SECONDS (21-34) 06/13/17 18:43 Assessment and Plan (1) Pyelonephritis Status: Acute (2) CLARISSA (acute kidney injury) Status: Acute (3) Abdominal pain Status: Acute (4) ESRD (end stage renal disease) Status: Acute (5) Anemia Status: Chronic (6) Urinary tract infection Status: Suspected
--- NOTE | 2017-06-21 04:37 | OP ---
PROCEDURE DATE: PREOPERATIVE DIAGNOSES: Urolithiasis, tremendous heavy stone burden on the right side, renal failure, unilateral kidney, with right kidney only. POSTOPERATIVE DIAGNOSES: Urolithiasis, tremendous heavy stone burden on the right side, renal failure, unilateral kidney, with right kidney only. PROCEDURE: Right cystostomy, right retrograde pyelogram, and insertion of a right double J stent with some great difficulty. The stone is tremendous. ESTIMATED BLOOD LOSS: Less than 10 mL. COMPLICATIONS: There were no complications. At the termination of procedure, double J-stent is in good location on the right side. INDICATIONS: See the history and physical for further details. Very pleasant gentleman here for the above procedure. He is very pleasant, but extremely noncompliant gentleman who was actually discussed and recommended percutaneous nephrostolithotomy (he ended up and has got a complicated history where he lost his left kidney previously after stone treatment). At that time, he was not a dialysis patient and he had platelet dysfunction and many other things, these were all dictated in separate notes. Again, I explained to the patient that now it is a different situation; now that he is on the dialysis and he can be more heavily monitored, we would consider doing a percutaneous nephrostolithotomy and would not expect the same outcome. Again, it was his overall medical background and I can understand his concerns. I did discuss with the patient today that we are just putting a stent in to drain the kidney, that he should seek out a second opinion, but if not, we have planned and what he prefers is to ask me if we can do cystoscopy, ureteroscopy, laser lithotripsy and take as many treatments as needed. I told him he may even need 10 to 15 procedures, and we will consider the possibility for an ESWL therapy. But today, he is here just for stent insertion. I do want to mention the findings, the anterior urethra is normal. No strictures are noted, minimally visually occlusive about 2 cm in length. Ureteral orifices normal. There is a little "pimple" at the orifice. It is not really obstructing. Just proximal to this in the lower portion of the ureter, is a little obstruction but once we used the Berenstein green tip catheter and used it to twirl a little bit, it went right in, and once we got the wire in, we got the wire up to the stone. At the level of the stone, again we had tremendous difficulty again getting past the stone. We used the open-ended technique at this point, and with the wire installation, after a lot of difficulty we were able to get the wire past the stone, and once we did this, we were able to put a double J-stent past the stone. DESCRIPTION OF PROCEDURE: It was a difficult stent insertion but it went well with no perforations. There were no complications. After obtaining informed consent, the patient was placed on the table. Routine monitors were placed. Time-out was called. We confirmed the patient and positioning. We introduced the cystoscope via the urethra under direct vision. The anterior urethra was normal, no strictures. ____ 2 to 3 cm in length. The ureter was identified, a right retrograde is performed. There was a little "pimple" at the right orifice, but retrograde pyelogram shows relatively otherwise normal. There is a gigantic stone in the lower pole of the kidney plus there were a couple of other branches elsewhere in the kidney, did fluoro imaging and that is saved. At this point, we put a wire. I could not get the wire past the lower ureter. In the lower ureter, there was a little obstruction. We used a green Berenstein catheter and manipulated a little bit and then we were able to get in. We continued working diligently. We got the wire to the stone and then we could not get past the stone, so we put an open-ended catheter, and once we worked carefully closely, we used fluoroscopic imaging; multiple pictures were taken and saved. The wire had just passed the stone and once we did this, we were able to get it to curl in the upper pole of the kidney. Once we did this, we put a double-J stent in. We confirmed the positioning on x-ray. We emptied the bladder. The patient tolerated the procedure without complications. ADDENDUM: We will discuss with the patient and the again about options for treatment and recommendations and that the patient should consider very strongly the possibility for getting a second opinion. Further plans will follow. Celso Ferro MD [facility] # [id number]
[2017-06-21] MEDS: Oxycodone/Acetaminophen 5/325 mg Tab PO PRN ×3 (09:33→22:49)
[2017-06-21] MEDS: Pantoprazole 40 mg EC Tab PO SCH (09:33)
[2017-06-21] MEDS: oxyCODONE 40 mg ER Tab (oxyCONTIN) PO SCH ×2 (09:34→21:29)
[2017-06-21] MEDS: Ferric Sodium Gluconat Complex 125 MG in Sodium Chloride 0.9% 100 ML IVPB SCH (09:48)
--- NOTE | 2017-06-21 13:28 | CP.PCM.PN ---
Subjective - Date & Time of Evaluation Date of Evaluation: 06/21/17 Time of Evaluation: 13:25 - Subjective Subjective: s/p dialysis 06/20 still with right CVAT on case Hg better with ESAs Objective - Vital Signs/Intake and Output Vital Signs (last 24 hours): Temp Pulse Resp BP Pulse Ox 98.6 F 73 20 117/57 L 97 06/21/17 00:00 06/21/17 00:00 06/21/17 00:00 06/21/17 00:00 06/21/17 00:00 Intake and Output: 06/21/17 06/21/17 06:59 18:59 Intake Total 450 Output Total 350 Balance 100 - Medications Medications: Current Medications Alprazolam (Xanax) 0.5 mg PO Q12H PRN PRN Reason: Anxiety Benzocaine/Menthol (Cepacol Sore Throat) 1 maggie MT Q3 PRN PRN Reason: Sore Throat Last Admin: 06/18/17 09:52 Dose: 1 maggie Calcium Acetate (Phoslo) 667 mg PO TID [facility] Last Admin: 06/21/17 09:32 Dose: 667 mg Epoetin Zain (Procrit) 10,000 unit IV TTS [facility] Last Admin: 06/20/17 11:11 Dose: 10,000 unit Ferrous Sulfate (Feosol) 325 mg PO TID [facility] Last Admin: 06/21/17 09:33 Dose: 325 mg Heparin Sodium (Porcine) (Heparin) 5,000 units SC Q8 [facility] Last Admin: 06/20/17 06:13 Dose: Not Given Ferric Sodium Gluconate Complex 125 mg/ Sodium Chloride 110 mls @ 110 mls/hr IVPB DAILY [facility] Stop: 06/25/17 12:01 Last Admin: 06/21/17 09:48 Dose: 110 mls/hr Ceftriaxone Sodium 1 gm/ (Sodium Chloride) 100 mls @ 100 mls/hr IVPB Q24H [facility] Last Admin: 06/20/17 15:40 Dose: 100 mls Oxycodone HCl (Oxycontin Extended Release Tab) 40 mg PO Q12 [facility] Last Admin: 06/21/17 09:34 Dose: 40 mg Oxycodone/Acetaminophen (Percocet 5/325 Mg Tab) 1 tab PO Q4H PRN PRN Reason: Pain, severe (8-10) Stop: 06/23/17 12:57 Last Admin: 06/21/17 09:33 Dose: 1 tab Pantoprazole Sodium (Protonix Ec Tab) 40 mg PO DAILY [facility] Last Admin: 06/21/17 09:33 Dose: 40 mg Sevelamer Carbonate (Renvela) 1,600 mg PO TID [facility] Last Admin: 06/21/17 09:32 Dose: 1,600 mg Tamsulosin HCl (Flomax) 0.4 mg PO DAILY [facility] Last Admin: 06/21/17 09:32 Dose: 0.4 mg - Labs Labs: 06/19/17 08:30 06/19/17 08:30 PT 11.7 SECONDS (9.7-12.2) 06/13/17 18:43 INR 1.0 06/13/17 18:43 APTT 33 SECONDS (21-34) 06/13/17 18:43 - Constitutional Appears: No Acute Distress, Chronically Ill - Head Exam Head Exam: ATRAUMATIC, NORMAL INSPECTION - Eye Exam Eye Exam: EOMI, Normal appearance - Neck Exam Neck Exam: Normal Inspection. absent: Tenderness - Respiratory Exam Respiratory Exam: Clear to Ausculation Bilateral, NORMAL BREATHING PATTERN - Cardiovascular Exam Cardiovascular Exam: REGULAR RHYTHM, +S1 - GI/Abdominal Exam GI & Abdominal Exam: Soft. absent: Tenderness - Extremities Exam Extremities Exam: Tenderness. absent: Normal Inspection - Neurological Exam Neurological Exam: Alert, CN II-XII Intact - Skin Skin Exam: Dry, Warm Assessment and Plan (1) Pyelonephritis Status: Acute (2) ESRD on dialysis Status: Acute (3) Hypertension Status: Acute (4) S/p nephrectomy Status: Acute - Assessment and Plan (Free Text) Plan: Dialysis TTS IV ABs plans
--- NOTE | 2017-06-21 13:51 | RAD ---
PROCEDURE: Intraoperative Fluoroscopy. HISTORY: RENAL CALCULI FINDINGS: Fluoroscopic assistance was provided. 66.7 seconds fluoroscopy time utilized during this procedure. Radiation dose = 1.4 mGy cm.
--- NOTE | 2017-06-21 15:49 | RAD ---
HISTORY: RENAL CALCULI COMPARISON: 04/27/2017. FINDINGS: BOWEL: Constipation without fecal impaction or obstruction. BONES: Normal. OTHER FINDINGS: Stable calculus disease/ staghorn calculus right kidney. Limitations of the current examination: Nonvisualization of the left kidney based on overlying bowel gas fecal debris. IMPRESSION: Stable staghorn calculus. No acute findings.
--- NOTE | 2017-06-21 18:48 | PCM.URO ---
Urology Progress Note - General General: Tolerating Diet - Subjective Abdominal Pain: Yes Flank Pain: Yes Nausea: No Hematuria: Yes (mild yesterday) Urinary Urgency: No Good Stream: Yes Stone Passed: No Chest Pain: No Fever & Chills: No - Objective Intake & Output: Intake & Output 06/20/17 06/21/17 06/21/17 18:59 06:59 18:59 Intake Total 610 450 580 Output Total 150 350 Balance 460 100 580 Intake: Intake, IV Amount 100 Right Antecubital 100 Oral 610 450 480 Output: Urine 150 350 Urine, Voided 350 Other: # Voids Urine, Voided 0 3 5 # Bowel Movements 1 Vital Signs: Vital Signs - 24 hr 06/21/17 06/21/17 00:00 16:00 Temperature 98.6 F 98.1 F Pulse Rate 73 75 Respiratory 20 20 Rate Blood Pressure 117/57 L 115/60 O2 Sat by Pulse 97 99 Oximetry - Physical Exam Abdominal Exam: Soft, Non-Distended. absent: Non-Tender (R sided abd tenderness ) - Plan Additional Information: IMP;. stable p cysto, stent insertion. P: on antibiotic rx. flomax. further treatment t/f. discussed w pt - Date & Time of Note Date: 06/21/17 Time: 12:00
[2017-06-22 07:56] LABS: HEMOGLOBIN 8.5 g/dL (12.0-18.0); MEAN CORPUSCULAR HEMOGLOBIN 32.8 pg (27.0-31.0); MEAN CORPUSCULAR HGB CONC 33.1 g/dL (33.0-37.0); MEAN PLATELET VOLUME 7.3 fL (7.2-11.7); RBC 2.59 Mil/uL (4.40-5.90); RED CELL DISTRIBUTION WIDTH 18.2 % (11.5-14.5)
[2017-06-22 08:01] LABS: MEAN CELL VOLUME 99.1 fL (80.0-94.0)
[2017-06-22 08:56] LABS: CALCIUM 8.6 mg/dl (8.6-10.4)
[2017-06-22] MEDS: oxyCODONE 40 mg ER Tab (oxyCONTIN) PO SCH ×2 (09:47→21:50)
[2017-06-22] MEDS: Pantoprazole 40 mg EC Tab PO SCH (09:51)
[2017-06-22] MEDS: Ferric Sodium Gluconat Complex 125 MG in Sodium Chloride 0.9% 100 ML IVPB SCH (10:26)
--- NOTE | 2017-06-22 10:34 | CP.PCM.PN ---
Subjective - Date & Time of Evaluation Date of Evaluation: 06/22/17 Time of Evaluation: 10:32 - Subjective Subjective: Remains same For dialysis now Remains on IV ABs For procedure today for stone relief Diallysis mlater today Hg low- on ESAs, IV FE Objective - Vital Signs/Intake and Output Vital Signs (last 24 hours): Temp Pulse Resp BP Pulse Ox 98.1 F 71 20 148/76 98 06/22/17 07:50 06/22/17 07:50 06/22/17 07:50 06/22/17 07:50 06/22/17 07:50 Intake and Output: 06/22/17 06/22/17 06:59 18:59 Intake Total 550 0 Balance 550 0 - Medications Medications: Current Medications Alprazolam (Xanax) 0.5 mg PO Q12H PRN PRN Reason: Anxiety Benzocaine/Menthol (Cepacol Sore Throat) 1 maggie MT Q3 PRN PRN Reason: Sore Throat Last Admin: 06/18/17 09:52 Dose: 1 maggie Calcium Acetate (Phoslo) 667 mg PO TID [facility] Last Admin: 06/22/17 09:50 Dose: Not Given Epoetin Zain (Procrit) 10,000 unit IV TTS [facility] Last Admin: 06/20/17 11:11 Dose: 10,000 unit Ferrous Sulfate (Feosol) 325 mg PO TID [facility] Last Admin: 06/22/17 09:50 Dose: Not Given Heparin Sodium (Porcine) (Heparin) 5,000 units SC Q8 [facility] Last Admin: 06/20/17 06:13 Dose: Not Given Ferric Sodium Gluconate Complex 125 mg/ Sodium Chloride 110 mls @ 110 mls/hr IVPB DAILY [facility] Stop: 06/25/17 12:01 Last Admin: 06/22/17 10:26 Dose: 110 mls/hr Ceftriaxone Sodium 1 gm/ (Sodium Chloride) 100 mls @ 100 mls/hr IVPB Q24H [facility] Last Admin: 06/21/17 16:49 Dose: 100 mls/hr Oxycodone HCl (Oxycontin Extended Release Tab) 40 mg PO Q12 [facility] Last Admin: 06/22/17 09:47 Dose: 40 mg Oxycodone/Acetaminophen (Percocet 5/325 Mg Tab) 1 tab PO Q4H PRN PRN Reason: Pain, severe (8-10) Stop: 06/23/17 12:57 Last Admin: 06/21/17 22:49 Dose: 1 tab Pantoprazole Sodium (Protonix Ec Tab) 40 mg PO DAILY [facility] Last Admin: 06/22/17 09:51 Dose: Not Given Sevelamer Carbonate (Renvela) 1,600 mg PO TID [facility] Last Admin: 06/22/17 09:51 Dose: Not Given Tamsulosin HCl (Flomax) 0.4 mg PO DAILY [facility] Last Admin: 06/22/17 09:50 Dose: Not Given - Labs Labs: 06/22/17 07:50 06/22/17 07:50 PT 11.7 SECONDS (9.7-12.2) 06/13/17 18:43 INR 1.0 06/13/17 18:43 APTT 33 SECONDS (21-34) 06/13/17 18:43 - Constitutional Appears: No Acute Distress, Chronically Ill - Head Exam Head Exam: ATRAUMATIC, NORMAL INSPECTION - Eye Exam Eye Exam: EOMI, Normal appearance - Neck Exam Neck Exam: Normal Inspection. absent: Tenderness - Respiratory Exam Respiratory Exam: Clear to Ausculation Bilateral, NORMAL BREATHING PATTERN - Cardiovascular Exam Cardiovascular Exam: REGULAR RHYTHM, +S1 - GI/Abdominal Exam GI & Abdominal Exam: Soft. absent: Tenderness - Extremities Exam Extremities Exam: Normal Inspection. absent: Tenderness - Back Exam Back Exam: CVA tenderness (R) - Neurological Exam Neurological Exam: Alert, CN II-XII Intact - Skin Skin Exam: Dry, Warm Assessment and Plan (1) Pyelonephritis Status: Acute (2) ESRD on dialysis Status: Acute (3) Hypertension Status: Acute (4) S/p nephrectomy Status: Acute - Assessment and Plan (Free Text) Plan: procedure Dilaysis today Same IV ABs ESAs
--- NOTE | 2017-06-22 11:46 | PCM.URO ---
Urology Progress Note - Objective Lab Studies: Reviewed (for various reasons, OR maintenance, potassium level, dialysis, scheduling, no procedure today. pt is rescheduled for 06/26 . will discuss further plan) Lab Results Last 24 Hours: Laboratory Results - last 24 hr 06/22/17 06/22/17 07:50 07:50 WBC 5.0 RBC 2.59 L Hgb 8.5 L Hct 25.6 L MCV 99.1 H D MCH 32.8 H MCHC 33.1 RDW 18.2 H Plt Count 249 MPV 7.3 Sodium 131 L Potassium 5.7 H Chloride 95 L Carbon Dioxide 24 Anion Gap 17 BUN 74 H Creatinine 11.7 H* Est GFR ( Amer) 6 Est GFR (Non-Af Amer) 5 Random Glucose 92 Calcium 8.6 Intake & Output: Intake & Output 06/21/17 06/22/17 06/22/17 18:59 06:59 18:59 Intake Total 580 550 0 Balance 580 550 0 Intake: Intake, IV Amount 100 100 Right Antecubital 100 100 Oral 480 450 0 Other: # Voids Urine, Voided 5 2 2 # Bowel Movements 1 Vital Signs: Vital Signs - 24 hr 06/21/17 06/21/17 06/22/17 16:00 23:50 07:50 Temperature 98.1 F 98.7 F 98.1 F Pulse Rate 75 71 71 Respiratory 20 20 20 Rate Blood Pressure 115/60 134/66 148/76 O2 Sat by Pulse 99 97 98 Oximetry
[2017-06-22] MEDS: Epoetin Alfa 10,000 unit/ml Dialysis IV SCH (17:20)
[2017-06-22] MEDS: Oxycodone/Acetaminophen 5/325 mg Tab PO PRN ×2 (17:23→22:43)
--- NOTE | 2017-06-22 23:19 | CP.PCM.PN ---
Subjective - Date & Time of Evaluation Date of Evaluation: 06/21/17 Time of Evaluation: 18:35 - Subjective Subjective: Pt seen and evaluated, is c/o b/l flank pain, pt is for OR seen by urology too, for stent placement Objective - Vital Signs/Intake and Output Vital Signs (last 24 hours): Temp Pulse Resp BP Pulse Ox 98.2 F 72 20 123/57 L 95 06/22/17 20:50 06/22/17 20:50 06/22/17 20:50 06/22/17 20:50 06/22/17 20:50 Intake and Output: 06/22/17 06/23/17 18:59 06:59 Intake Total 340 500 Balance 340 500 - Medications Medications: Current Medications Alprazolam (Xanax) 0.5 mg PO Q12H PRN PRN Reason: Anxiety Benzocaine/Menthol (Cepacol Sore Throat) 1 maggie MT Q3 PRN PRN Reason: Sore Throat Last Admin: 06/18/17 09:52 Dose: 1 maggie Calcium Acetate (Phoslo) 667 mg PO TID [facility] Last Admin: 06/22/17 17:34 Dose: 667 mg Epoetin Zain (Procrit) 10,000 unit IV TTS [facility] Last Admin: 06/22/17 17:20 Dose: 10,000 unit Ferrous Sulfate (Feosol) 325 mg PO TID [facility] Last Admin: 06/22/17 17:34 Dose: 325 mg Heparin Sodium (Porcine) (Heparin) 5,000 units SC Q8 [facility] Last Admin: 06/20/17 06:13 Dose: Not Given Ferric Sodium Gluconate Complex 125 mg/ Sodium Chloride 110 mls @ 110 mls/hr IVPB DAILY [facility] Stop: 06/25/17 12:01 Last Admin: 06/22/17 10:26 Dose: 110 mls/hr Ceftriaxone Sodium 1 gm/ (Sodium Chloride) 100 mls @ 100 mls/hr IVPB Q24H [facility] Last Admin: 06/22/17 17:13 Dose: 100 mls/hr Oxycodone HCl (Oxycontin Extended Release Tab) 40 mg PO Q12 [facility] Last Admin: 06/22/17 21:50 Dose: 40 mg Oxycodone/Acetaminophen (Percocet 5/325 Mg Tab) 1 tab PO Q4H PRN PRN Reason: Pain, severe (8-10) Stop: 06/23/17 12:57 Last Admin: 06/22/17 22:43 Dose: 1 tab Pantoprazole Sodium (Protonix Ec Tab) 40 mg PO DAILY [facility] Last Admin: 06/22/17 09:51 Dose: Not Given Sevelamer Carbonate (Renvela) 1,600 mg PO TID [facility] Last Admin: 06/22/17 17:34 Dose: 1,600 mg Tamsulosin HCl (Flomax) 0.4 mg PO DAILY [facility] Last Admin: 06/22/17 09:50 Dose: Not Given - Labs Labs: 06/22/17 07:50 06/22/17 07:50 PT 11.7 SECONDS (9.7-12.2) 06/13/17 18:43 INR 1.0 06/13/17 18:43 APTT 33 SECONDS (21-34) 06/13/17 18:43 Assessment and Plan (1) Pyelonephritis Status: Acute (2) CLARISSA (acute kidney injury) Status: Acute (3) Abdominal pain Status: Acute (4) ESRD (end stage renal disease) Status: Acute (5) Anemia Status: Chronic (6) Urinary tract infection Status: Suspected
--- NOTE | 2017-06-22 23:20 | CP.PCM.PN ---
Subjective - Date & Time of Evaluation Date of Evaluation: 06/22/17 Time of Evaluation: 20:00 - Subjective Subjective: Pt seen and evaluated, pt is for OR today for stent pplacemnet, H and H is stable Objective - Vital Signs/Intake and Output Vital Signs (last 24 hours): Temp Pulse Resp BP Pulse Ox 98.2 F 72 20 123/57 L 95 06/22/17 20:50 06/22/17 20:50 06/22/17 20:50 06/22/17 20:50 06/22/17 20:50 Intake and Output: 06/22/17 06/23/17 18:59 06:59 Intake Total 340 500 Balance 340 500 - Medications Medications: Current Medications Alprazolam (Xanax) 0.5 mg PO Q12H PRN PRN Reason: Anxiety Benzocaine/Menthol (Cepacol Sore Throat) 1 maggie MT Q3 PRN PRN Reason: Sore Throat Last Admin: 06/18/17 09:52 Dose: 1 maggie Calcium Acetate (Phoslo) 667 mg PO TID [facility] Last Admin: 06/22/17 17:34 Dose: 667 mg Epoetin Zain (Procrit) 10,000 unit IV TTS [facility] Last Admin: 06/22/17 17:20 Dose: 10,000 unit Ferrous Sulfate (Feosol) 325 mg PO TID [facility] Last Admin: 06/22/17 17:34 Dose: 325 mg Heparin Sodium (Porcine) (Heparin) 5,000 units SC Q8 [facility] Last Admin: 06/20/17 06:13 Dose: Not Given Ferric Sodium Gluconate Complex 125 mg/ Sodium Chloride 110 mls @ 110 mls/hr IVPB DAILY [facility] Stop: 06/25/17 12:01 Last Admin: 06/22/17 10:26 Dose: 110 mls/hr Ceftriaxone Sodium 1 gm/ (Sodium Chloride) 100 mls @ 100 mls/hr IVPB Q24H [facility] Last Admin: 06/22/17 17:13 Dose: 100 mls/hr Oxycodone HCl (Oxycontin Extended Release Tab) 40 mg PO Q12 [facility] Last Admin: 06/22/17 21:50 Dose: 40 mg Oxycodone/Acetaminophen (Percocet 5/325 Mg Tab) 1 tab PO Q4H PRN PRN Reason: Pain, severe (8-10) Stop: 06/23/17 12:57 Last Admin: 06/22/17 22:43 Dose: 1 tab Pantoprazole Sodium (Protonix Ec Tab) 40 mg PO DAILY [facility] Last Admin: 06/22/17 09:51 Dose: Not Given Sevelamer Carbonate (Renvela) 1,600 mg PO TID [facility] Last Admin: 06/22/17 17:34 Dose: 1,600 mg Tamsulosin HCl (Flomax) 0.4 mg PO DAILY [facility] Last Admin: 06/22/17 09:50 Dose: Not Given - Labs Labs: 06/22/17 07:50 06/22/17 07:50 PT 11.7 SECONDS (9.7-12.2) 06/13/17 18:43 INR 1.0 06/13/17 18:43 APTT 33 SECONDS (21-34) 06/13/17 18:43 - Constitutional Appears: No Acute Distress - Head Exam Head Exam: ATRAUMATIC, NORMAL INSPECTION, NORMOCEPHALIC - Eye Exam Eye Exam: EOMI, Normal appearance, PERRL Pupil Exam: NORMAL ACCOMODATION, PERRL - Respiratory Exam Respiratory Exam: NORMAL BREATHING PATTERN - Cardiovascular Exam Cardiovascular Exam: REGULAR RHYTHM, +S1, +S2. absent: Murmur - GI/Abdominal Exam GI & Abdominal Exam: Soft, Normal Bowel Sounds. absent: Tenderness Assessment and Plan (1) Pyelonephritis Status: Acute (2) CLARISSA (acute kidney injury) Status: Acute (3) Abdominal pain Status: Acute (4) ESRD (end stage renal disease) Status: Acute (5) Anemia Status: Chronic (6) Urinary tract infection Status: Suspected (7) Nephrolithiasis Assessment & Plan: for Or today Status: Acute
[2017-06-23] MEDS: Pantoprazole 40 mg EC Tab PO SCH (09:28)
[2017-06-23] MEDS: oxyCODONE 40 mg ER Tab (oxyCONTIN) PO SCH ×2 (09:28→21:57)
[2017-06-23] MEDS: Oxycodone/Acetaminophen 5/325 mg Tab PO PRN ×3 (09:29→23:01)
--- NOTE | 2017-06-23 10:15 | PCM.URO ---
Urology Progress Note - General General: Tolerating Diet - Subjective Abdominal Pain: Yes (much less) Flank Pain: No Nausea: No Vomiting: No Voiding Well: Yes Hematuria: No Stone Passed: No Dsypnea: No Chest Pain: No Fever & Chills: No - Objective Lab Studies: Reviewed Intake & Output: Intake & Output 06/22/17 06/23/17 06/23/17 18:59 06:59 18:59 Intake Total 340 740 Balance 340 740 Intake: Intake, IV Amount 100 100 Right Antecubital 100 100 Oral 240 640 Other: # Voids Urine, Voided 2 3 # Bowel Movements 0 Vital Signs: Vital Signs - 24 hr 06/22/17 06/22/17 06/22/17 13:45 14:00 14:15 Temperature 97.7 F Pulse Rate 72 Pulse Rate [ 72 Right Brachial] Respiratory 17 Rate Blood Pressure 124/63 Blood Pressure 122/64 124/66 112/65 [Right Arm] O2 Sat by Pulse 100 Oximetry 06/22/17 06/22/17 06/22/17 14:30 14:45 15:15 Temperature Pulse Rate Pulse Rate [ Right Brachial] Respiratory Rate Blood Pressure Blood Pressure 133/63 120/66 111/63 [Right Arm] O2 Sat by Pulse Oximetry 06/22/17 06/22/17 06/22/17 15:45 16:15 16:25 Temperature 98.2 F Pulse Rate Pulse Rate [ 74 Right Brachial] Respiratory 20 Rate Blood Pressure Blood Pressure 119/62 127/70 132/65 [Right Arm] O2 Sat by Pulse 96 Oximetry 06/22/17 06/23/17 06/23/17 20:50 00:01 07:56 Temperature 98.2 F 98.5 F 98.8 F Pulse Rate 72 78 70 Pulse Rate [ Right Brachial] Respiratory 20 20 20 Rate Blood Pressure 123/57 L 133/64 138/71 Blood Pressure [Right Arm] O2 Sat by Pulse 95 98 99 Oximetry - Physical Exam Abdominal Exam: Soft, Non-Tender, Non-Distended Back: No CVA Tenderness - Plan Additional Information: Imp: urolithiasis. renal failure. solitary R kidney. Improved re symptoms. stable p cysto, stent insertion - Date & Time of Note Date: 06/23/17 Time: 10:15
[2017-06-23] MEDS: Ferric Sodium Gluconat Complex 125 MG in Sodium Chloride 0.9% 100 ML IVPB SCH (10:41)
--- NOTE | 2017-06-23 13:10 | CP.PCM.PN ---
Subjective - Date & Time of Evaluation Date of Evaluation: 06/23/17 Time of Evaluation: 13:07 - Subjective Subjective: s/p dialysis 06/22- tolerated well Ureteral stent cancelled due to high K Less CVAT Otherwise same- no new complaints Objective - Vital Signs/Intake and Output Vital Signs (last 24 hours): Temp Pulse Resp BP Pulse Ox 98.8 F 70 20 138/71 99 06/23/17 07:56 06/23/17 07:56 06/23/17 07:56 06/23/17 07:56 06/23/17 07:56 Intake and Output: 06/23/17 06/23/17 06:59 18:59 Intake Total 740 Balance 740 - Medications Medications: Current Medications Alprazolam (Xanax) 0.5 mg PO Q12H PRN PRN Reason: Anxiety Benzocaine/Menthol (Cepacol Sore Throat) 1 maggie MT Q3 PRN PRN Reason: Sore Throat Last Admin: 06/18/17 09:52 Dose: 1 maggie Calcium Acetate (Phoslo) 667 mg PO TID [facility] Last Admin: 06/23/17 09:28 Dose: 667 mg Epoetin Zain (Procrit) 10,000 unit IV TTS [facility] Last Admin: 06/22/17 17:20 Dose: 10,000 unit Ferrous Sulfate (Feosol) 325 mg PO TID [facility] Last Admin: 06/23/17 09:30 Dose: 325 mg Heparin Sodium (Porcine) (Heparin) 5,000 units SC Q8 [facility] Last Admin: 06/20/17 06:13 Dose: Not Given Ferric Sodium Gluconate Complex 125 mg/ Sodium Chloride 110 mls @ 110 mls/hr IVPB DAILY [facility] Stop: 06/25/17 12:01 Last Admin: 06/23/17 10:41 Dose: 110 mls/hr Ceftriaxone Sodium 1 gm/ (Sodium Chloride) 100 mls @ 100 mls/hr IVPB Q24H [facility] Last Admin: 06/22/17 17:13 Dose: 100 mls/hr Oxycodone HCl (Oxycontin Extended Release Tab) 40 mg PO Q12 [facility] Last Admin: 06/23/17 09:28 Dose: 40 mg Pantoprazole Sodium (Protonix Ec Tab) 40 mg PO DAILY [facility] Last Admin: 06/23/17 09:28 Dose: 40 mg Sevelamer Carbonate (Renvela) 1,600 mg PO TID [facility] Last Admin: 06/23/17 09:30 Dose: 1,600 mg Tamsulosin HCl (Flomax) 0.4 mg PO DAILY [facility] Last Admin: 06/23/17 09:29 Dose: 0.4 mg - Labs Labs: 06/22/17 07:50 06/22/17 07:50 PT 11.7 SECONDS (9.7-12.2) 06/13/17 18:43 INR 1.0 06/13/17 18:43 APTT 33 SECONDS (21-34) 06/13/17 18:43 - Constitutional Appears: No Acute Distress, Chronically Ill - Head Exam Head Exam: ATRAUMATIC, NORMAL INSPECTION - Eye Exam Eye Exam: EOMI, Normal appearance - Neck Exam Neck Exam: Normal Inspection, Tenderness - Respiratory Exam Respiratory Exam: Clear to Ausculation Bilateral, NORMAL BREATHING PATTERN - Cardiovascular Exam Cardiovascular Exam: REGULAR RHYTHM, +S1 - GI/Abdominal Exam GI & Abdominal Exam: Soft. absent: Tenderness - Extremities Exam Extremities Exam: Normal Inspection. absent: Tenderness - Neurological Exam Neurological Exam: Alert, CN II-XII Intact - Skin Skin Exam: Dry, Warm Assessment and Plan (1) Pyelonephritis Status: Acute (2) ESRD on dialysis Status: Acute (3) Hypertension Status: Acute (4) S/p nephrectomy Status: Acute - Assessment and Plan (Free Text) Plan: IV ABs Dialysis TTS Await stent
--- NOTE | 2017-06-23 23:22 | CP.PCM.PN ---
Subjective - Date & Time of Evaluation Date of Evaluation: 06/23/17 Time of Evaluation: 18:00 - Subjective Subjective: Pt seen and examines s/p urolithiasis. renal failure. solitary stone in R kidney. Improved symptoms. stable s/p cysto, stent insertion, Pt OR was postponed and is on monday, medically stable, pt c/o flank pain, associated with chills, rigors Objective - Vital Signs/Intake and Output Vital Signs (last 24 hours): Temp Pulse Resp BP Pulse Ox 98.3 F 74 20 129/63 96 06/23/17 16:00 06/23/17 16:00 06/23/17 16:00 06/23/17 16:00 06/23/17 16:00 Intake and Output: 06/23/17 06/24/17 18:59 06:59 Intake Total 525 Balance 525 - Medications Medications: Current Medications Alprazolam (Xanax) 0.5 mg PO Q12H PRN PRN Reason: Anxiety Benzocaine/Menthol (Cepacol Sore Throat) 1 maggie MT Q3 PRN PRN Reason: Sore Throat Last Admin: 06/18/17 09:52 Dose: 1 maggie Calcium Acetate (Phoslo) 667 mg PO TID [facility] Last Admin: 06/23/17 17:10 Dose: 667 mg Epoetin Zain (Procrit) 10,000 unit IV TTS [facility] Last Admin: 06/22/17 17:20 Dose: 10,000 unit Ferrous Sulfate (Feosol) 325 mg PO TID [facility] Last Admin: 06/23/17 17:10 Dose: 325 mg Heparin Sodium (Porcine) (Heparin) 5,000 units SC Q8 [facility] Last Admin: 06/20/17 06:13 Dose: Not Given Ferric Sodium Gluconate Complex 125 mg/ Sodium Chloride 110 mls @ 110 mls/hr IVPB DAILY [facility] Stop: 06/25/17 12:01 Last Admin: 06/23/17 10:41 Dose: 110 mls/hr Ceftriaxone Sodium 1 gm/ (Sodium Chloride) 100 mls @ 100 mls/hr IVPB Q24H [facility] Last Admin: 06/23/17 17:14 Dose: 100 mls/hr Oxycodone HCl (Oxycontin Extended Release Tab) 40 mg PO Q12 [facility] Last Admin: 06/23/17 21:57 Dose: 40 mg Oxycodone/Acetaminophen (Percocet 5/325 Mg Tab) 1 tab PO Q4H PRN PRN Reason: Pain, severe (8-10) Stop: 06/26/17 16:31 Last Admin: 06/23/17 23:01 Dose: 1 tab Pantoprazole Sodium (Protonix Ec Tab) 40 mg PO DAILY [facility] Last Admin: 06/23/17 09:28 Dose: 40 mg Sevelamer Carbonate (Renvela) 1,600 mg PO TID [facility] Last Admin: 06/23/17 17:10 Dose: 1,600 mg Tamsulosin HCl (Flomax) 0.4 mg PO DAILY [facility] Last Admin: 06/23/17 09:29 Dose: 0.4 mg - Labs Labs: 06/22/17 07:50 06/22/17 07:50 PT 11.7 SECONDS (9.7-12.2) 06/13/17 18:43 INR 1.0 06/13/17 18:43 APTT 33 SECONDS (21-34) 06/13/17 18:43 - Constitutional Appears: Chronically Ill - Head Exam Head Exam: ATRAUMATIC, NORMAL INSPECTION, NORMOCEPHALIC - Eye Exam Eye Exam: EOMI, Normal appearance, PERRL Pupil Exam: NORMAL ACCOMODATION, PERRL - Respiratory Exam Respiratory Exam: Clear to Ausculation Bilateral, NORMAL BREATHING PATTERN - Cardiovascular Exam Cardiovascular Exam: REGULAR RHYTHM, +S1, +S2. absent: Murmur - GI/Abdominal Exam GI & Abdominal Exam: Soft, Normal Bowel Sounds. absent: Tenderness Assessment and Plan (1) Pyelonephritis Status: Acute (2) CLARISSA (acute kidney injury) Status: Acute (3) Abdominal pain Status: Acute (4) ESRD (end stage renal disease) Status: Acute (5) Anemia Status: Chronic (6) Urinary tract infection Status: Suspected
[2017-06-24] MEDS: Oxycodone/Acetaminophen 5/325 mg Tab PO PRN ×2 (02:54→08:41)
[2017-06-24 08:29] LABS: HEMOGLOBIN 8.5 g/dL (12.0-18.0); MEAN CELL VOLUME 99.3 fL (80.0-94.0); MEAN CORPUSCULAR HEMOGLOBIN 34.2 pg (27.0-31.0); MEAN CORPUSCULAR HGB CONC 34.4 g/dL (33.0-37.0); MEAN PLATELET VOLUME 7.1 fL (7.2-11.7); RBC 2.49 Mil/uL (4.40-5.90); RED CELL DISTRIBUTION WIDTH 18.6 % (11.5-14.5); WHITE BLOOD COUNT 5.7 K/uL (4.8-10.8)
[2017-06-24 08:51] LABS: CALCIUM 8.9 mg/dl (8.6-10.4)
[2017-06-24] MEDS: oxyCODONE 40 mg ER Tab (oxyCONTIN) PO SCH ×2 (09:18→21:29)
[2017-06-24] MEDS: Pantoprazole 40 mg EC Tab PO SCH (09:19)
[2017-06-24] MEDS: Ferric Sodium Gluconat Complex 125 MG in Sodium Chloride 0.9% 100 ML IVPB SCH (09:53)
--- NOTE | 2017-06-24 12:11 | CP.PCM.PN ---
Subjective - Date & Time of Evaluation Date of Evaluation: 06/24/17 Time of Evaluation: 12:09 - Subjective Subjective: continued flank pain for stent on Monday HD today not toxic ROS cannot be obtained due to patient uncooperative Objective - Vital Signs/Intake and Output Vital Signs (last 24 hours): Temp Pulse Resp BP Pulse Ox 98.5 F 79 20 132/63 97 06/24/17 08:00 06/24/17 08:00 06/24/17 08:00 06/24/17 08:00 06/24/17 08:00 - Medications Medications: Current Medications Alprazolam (Xanax) 0.5 mg PO Q12H PRN PRN Reason: Anxiety Benzocaine/Menthol (Cepacol Sore Throat) 1 maggie MT Q3 PRN PRN Reason: Sore Throat Last Admin: 06/18/17 09:52 Dose: 1 maggie Calcium Acetate (Phoslo) 667 mg PO TID [facility] Last Admin: 06/24/17 09:18 Dose: 667 mg Epoetin Zain (Procrit) 10,000 unit IV TTS [facility] Last Admin: 06/22/17 17:20 Dose: 10,000 unit Ferrous Sulfate (Feosol) 325 mg PO TID [facility] Last Admin: 06/24/17 09:19 Dose: 325 mg Heparin Sodium (Porcine) (Heparin) 5,000 units SC Q8 [facility] Last Admin: 06/20/17 06:13 Dose: Not Given Ferric Sodium Gluconate Complex 125 mg/ Sodium Chloride 110 mls @ 110 mls/hr IVPB DAILY [facility] Stop: 06/25/17 12:01 Last Admin: 06/24/17 09:53 Dose: 110 mls/hr Ceftriaxone Sodium 1 gm/ (Sodium Chloride) 100 mls @ 100 mls/hr IVPB Q24H [facility] Last Admin: 06/23/17 17:14 Dose: 100 mls/hr Oxycodone HCl (Oxycontin Extended Release Tab) 40 mg PO Q12 [facility] Last Admin: 06/24/17 09:18 Dose: 40 mg Oxycodone/Acetaminophen (Percocet 5/325 Mg Tab) 1 tab PO Q4H PRN PRN Reason: Pain, severe (8-10) Stop: 06/26/17 16:31 Last Admin: 06/24/17 08:41 Dose: 1 tab Pantoprazole Sodium (Protonix Ec Tab) 40 mg PO DAILY [facility] Last Admin: 06/24/17 09:19 Dose: 40 mg Sevelamer Carbonate (Renvela) 1,600 mg PO TID [facility] Last Admin: 06/24/17 09:19 Dose: 1,600 mg Tamsulosin HCl (Flomax) 0.4 mg PO DAILY [facility] Last Admin: 06/24/17 09:19 Dose: 0.4 mg - Labs Labs: 06/24/17 08:18 06/24/17 08:18 PT 11.7 SECONDS (9.7-12.2) 06/13/17 18:43 INR 1.0 06/13/17 18:43 APTT 33 SECONDS (21-34) 06/13/17 18:43 - Constitutional Appears: No Acute Distress, Chronically Ill - Head Exam Head Exam: ATRAUMATIC, NORMAL INSPECTION - Eye Exam Eye Exam: EOMI, Normal appearance - ENT Exam ENT Exam: Mucous Membranes Moist - Neck Exam Neck Exam: Full ROM. absent: Lymphadenopathy - Respiratory Exam Respiratory Exam: Clear to Ausculation Bilateral. absent: Wheezes - Cardiovascular Exam Cardiovascular Exam: REGULAR RHYTHM. absent: Rubs - GI/Abdominal Exam GI & Abdominal Exam: Soft. absent: Tenderness - Neurological Exam Neurological Exam: Alert, Awake Assessment and Plan - Assessment and Plan (Free Text) Assessment: HD today For cysto and stent on Monday for nephrolithiasis
[2017-06-24] MEDS: Epoetin Alfa 10,000 unit/ml Dialysis IV SCH (16:07)
--- NOTE | 2017-06-24 23:31 | CP.PCM.PN ---
Subjective - Date & Time of Evaluation Date of Evaluation: 06/24/17 Time of Evaluation: 19:45 - Subjective Subjective: Pt is seen and examined, pt is for OR on monday, if Hb remains low will transfuse pt Objective - Vital Signs/Intake and Output Vital Signs (last 24 hours): Temp Pulse Resp BP Pulse Ox 98 F 77 20 133/73 97 06/24/17 22:53 06/24/17 22:53 06/24/17 22:53 06/24/17 22:53 06/24/17 14:05 Intake and Output: 06/24/17 06/25/17 18:59 06:59 Intake Total 500 30 Balance 500 30 - Medications Medications: Current Medications Alprazolam (Xanax) 0.5 mg PO Q12H PRN PRN Reason: Anxiety Benzocaine/Menthol (Cepacol Sore Throat) 1 maggie MT Q3 PRN PRN Reason: Sore Throat Last Admin: 06/18/17 09:52 Dose: 1 maggie Calcium Acetate (Phoslo) 667 mg PO TID [facility] Last Admin: 06/24/17 18:05 Dose: 667 mg Epoetin Zain (Procrit) 10,000 unit IV TTS [facility] Last Admin: 06/24/17 16:07 Dose: 10,000 unit Ferrous Sulfate (Feosol) 325 mg PO TID [facility] Last Admin: 06/24/17 18:04 Dose: 325 mg Heparin Sodium (Porcine) (Heparin) 5,000 units SC Q8 [facility] Last Admin: 06/20/17 06:13 Dose: Not Given Ferric Sodium Gluconate Complex 125 mg/ Sodium Chloride 110 mls @ 110 mls/hr IVPB DAILY [facility] Stop: 06/25/17 12:01 Last Admin: 06/24/17 09:53 Dose: 110 mls/hr Ceftriaxone Sodium 1 gm/ (Sodium Chloride) 100 mls @ 100 mls/hr IVPB Q24H [facility] Last Admin: 06/24/17 18:03 Dose: 100 mls/hr Oxycodone HCl (Oxycontin Extended Release Tab) 40 mg PO Q12 [facility] Last Admin: 06/24/17 21:29 Dose: 40 mg Oxycodone/Acetaminophen (Percocet 5/325 Mg Tab) 1 tab PO Q4H PRN PRN Reason: Pain, severe (8-10) Stop: 06/26/17 16:31 Last Admin: 06/24/17 08:41 Dose: 1 tab Pantoprazole Sodium (Protonix Ec Tab) 40 mg PO DAILY [facility] Last Admin: 06/24/17 09:19 Dose: 40 mg Sevelamer Carbonate (Renvela) 1,600 mg PO TID [facility] Last Admin: 06/24/17 18:05 Dose: 1,600 mg Tamsulosin HCl (Flomax) 0.4 mg PO DAILY [facility] Last Admin: 06/24/17 09:19 Dose: 0.4 mg - Labs Labs: 06/24/17 08:18 06/24/17 08:18 PT 11.7 SECONDS (9.7-12.2) 06/13/17 18:43 INR 1.0 06/13/17 18:43 APTT 33 SECONDS (21-34) 06/13/17 18:43 Assessment and Plan (1) Pyelonephritis Status: Acute (2) CLARISSA (acute kidney injury) Status: Acute (3) Abdominal pain Status: Acute (4) ESRD (end stage renal disease) Status: Acute (5) Anemia Status: Chronic (6) Urinary tract infection Status: Suspected
[2017-06-25] MEDS: oxyCODONE 40 mg ER Tab (oxyCONTIN) PO SCH ×2 (10:05→21:59)
[2017-06-25] MEDS: Pantoprazole 40 mg EC Tab PO SCH (10:06)
[2017-06-25] MEDS ORDERED: Ferric Sodium Gluconat Complex 62.5 mg/5 ml Vial ONE (10:10)
[2017-06-25] MEDS: Ferric Sodium Gluconat Complex 125 MG in Sodium Chloride 0.9% 100 ML IVPB SCH (10:10)
[2017-06-25] MEDS: Oxycodone/Acetaminophen 5/325 mg Tab PO PRN (13:05)
--- NOTE | 2017-06-25 21:41 | CP.PCM.PN ---
Subjective - Date & Time of Evaluation Date of Evaluation: 06/25/17 Time of Evaluation: 17:00 - Subjective Subjective: Pt seen and examined, is s/p transfusion for low HB is for Or tomorrow Objective - Vital Signs/Intake and Output Vital Signs (last 24 hours): Temp Pulse Resp BP Pulse Ox 98.4 F 85 20 144/78 96 06/25/17 15:00 06/25/17 15:00 06/25/17 15:00 06/25/17 15:00 06/25/17 15:00 - Medications Medications: Current Medications Alprazolam (Xanax) 0.5 mg PO Q12H PRN PRN Reason: Anxiety Benzocaine/Menthol (Cepacol Sore Throat) 1 maggie MT Q3 PRN PRN Reason: Sore Throat Last Admin: 06/18/17 09:52 Dose: 1 maggie Calcium Acetate (Phoslo) 667 mg PO TID [facility] Last Admin: 06/25/17 17:44 Dose: 667 mg Epoetin Zain (Procrit) 10,000 unit IV TTS [facility] Last Admin: 06/24/17 16:07 Dose: 10,000 unit Ferrous Sulfate (Feosol) 325 mg PO TID [facility] Last Admin: 06/25/17 17:44 Dose: 325 mg Heparin Sodium (Porcine) (Heparin) 5,000 units SC Q8 [facility] Last Admin: 06/20/17 06:13 Dose: Not Given Oxycodone HCl (Oxycontin Extended Release Tab) 40 mg PO Q12 [facility] Last Admin: 06/25/17 10:05 Dose: 40 mg Oxycodone/Acetaminophen (Percocet 5/325 Mg Tab) 1 tab PO Q4H PRN PRN Reason: Pain, severe (8-10) Stop: 06/26/17 16:31 Last Admin: 06/25/17 13:05 Dose: 1 tab Pantoprazole Sodium (Protonix Ec Tab) 40 mg PO DAILY [facility] Last Admin: 06/25/17 10:06 Dose: 40 mg Sevelamer Carbonate (Renvela) 1,600 mg PO TID [facility] Last Admin: 06/25/17 17:44 Dose: 1,600 mg Tamsulosin HCl (Flomax) 0.4 mg PO DAILY [facility] Last Admin: 06/25/17 09:29 Dose: 0.4 mg - Labs Labs: 06/24/17 08:18 06/24/17 08:18 PT 11.7 SECONDS (9.7-12.2) 06/13/17 18:43 INR 1.0 06/13/17 18:43 APTT 33 SECONDS (21-34) 06/13/17 18:43 - Constitutional Appears: No Acute Distress - Head Exam Head Exam: ATRAUMATIC, NORMAL INSPECTION, NORMOCEPHALIC - Eye Exam Eye Exam: EOMI, Normal appearance, PERRL Pupil Exam: NORMAL ACCOMODATION, PERRL - Respiratory Exam Respiratory Exam: Clear to Ausculation Bilateral, NORMAL BREATHING PATTERN - Cardiovascular Exam Cardiovascular Exam: REGULAR RHYTHM, +S1, +S2. absent: Murmur - GI/Abdominal Exam GI & Abdominal Exam: Soft, Normal Bowel Sounds. absent: Tenderness Assessment and Plan (1) Pyelonephritis Status: Acute (2) CLARISSA (acute kidney injury) Status: Acute (3) Abdominal pain Status: Acute (4) ESRD (end stage renal disease) Status: Acute (5) Anemia Status: Chronic (6) Urinary tract infection Status: Suspected
[2017-06-26] MEDS: oxyCODONE 40 mg ER Tab (oxyCONTIN) PO SCH ×4 (09:36→22:42)
[2017-06-26] MEDS: Pantoprazole 40 mg EC Tab PO SCH (09:36)
--- NOTE | 2017-06-26 11:41 | CP.PCM.PN ---
Subjective - Date & Time of Evaluation Date of Evaluation: 06/26/17 Time of Evaluation: 11:38 - Subjective Subjective: Alert; no new changes- same CVAT Stable dialysis 06/24 for stent today s/p recent blood transfusion Objective - Vital Signs/Intake and Output Vital Signs (last 24 hours): Temp Pulse Resp BP Pulse Ox 98.3 F 68 20 139/65 98 06/26/17 08:12 06/26/17 08:12 06/26/17 08:12 06/26/17 08:12 06/26/17 08:12 Intake and Output: 06/26/17 06/26/17 06:59 18:59 Intake Total 500 Balance 500 - Medications Medications: Current Medications Alprazolam (Xanax) 0.5 mg PO Q12H PRN PRN Reason: Anxiety Benzocaine/Menthol (Cepacol Sore Throat) 1 maggie MT Q3 PRN PRN Reason: Sore Throat Last Admin: 06/18/17 09:52 Dose: 1 maggie Calcium Acetate (Phoslo) 667 mg PO TID [facility] Last Admin: 06/26/17 09:36 Dose: Not Given Epoetin Zain (Procrit) 10,000 unit IV TTS [facility] Last Admin: 06/24/17 16:07 Dose: 10,000 unit Ferrous Sulfate (Feosol) 325 mg PO TID [facility] Last Admin: 06/26/17 09:36 Dose: Not Given Heparin Sodium (Porcine) (Heparin) 5,000 units SC Q8 [facility] Last Admin: 06/20/17 06:13 Dose: Not Given Oxycodone HCl (Oxycontin Extended Release Tab) 40 mg PO Q12 [facility] Last Admin: 06/26/17 10:29 Dose: 40 mg Oxycodone/Acetaminophen (Percocet 5/325 Mg Tab) 1 tab PO Q4H PRN PRN Reason: Pain, severe (8-10) Stop: 06/26/17 16:31 Last Admin: 06/25/17 13:05 Dose: 1 tab Pantoprazole Sodium (Protonix Ec Tab) 40 mg PO DAILY [facility] Last Admin: 06/26/17 09:36 Dose: Not Given Sevelamer Carbonate (Renvela) 1,600 mg PO TID [facility] Last Admin: 06/26/17 09:37 Dose: Not Given Tamsulosin HCl (Flomax) 0.4 mg PO DAILY [facility] Last Admin: 06/26/17 09:36 Dose: Not Given - Labs Labs: 06/24/17 08:18 06/24/17 08:18 PT 11.7 SECONDS (9.7-12.2) 06/13/17 18:43 INR 1.0 06/13/17 18:43 APTT 33 SECONDS (21-34) 06/13/17 18:43 - Constitutional Appears: No Acute Distress, Chronically Ill - Head Exam Head Exam: ATRAUMATIC, NORMAL INSPECTION - Eye Exam Eye Exam: EOMI, Normal appearance - Neck Exam Neck Exam: Normal Inspection. absent: Tenderness - Respiratory Exam Respiratory Exam: Clear to Ausculation Bilateral, NORMAL BREATHING PATTERN - Cardiovascular Exam Cardiovascular Exam: REGULAR RHYTHM, +S1 - GI/Abdominal Exam GI & Abdominal Exam: Soft. absent: Tenderness - Extremities Exam Extremities Exam: Normal Inspection. absent: Tenderness - Neurological Exam Neurological Exam: Alert, CN II-XII Intact - Skin Skin Exam: Dry, Warm Assessment and Plan (1) Pyelonephritis Status: Acute (2) ESRD on dialysis Status: Acute (3) Hypertension Status: Acute (4) S/p nephrectomy Status: Acute - Assessment and Plan (Free Text) Plan: Dialysis TTS Ureteral stent soon
[2017-06-26 16:25] LABS: HEMOGLOBIN 9.1 g/dL (12.0-18.0); MEAN CELL VOLUME 99.6 fL (80.0-94.0); MEAN CORPUSCULAR HEMOGLOBIN 33.6 pg (27.0-31.0); MEAN CORPUSCULAR HGB CONC 33.7 g/dL (33.0-37.0); MEAN PLATELET VOLUME 6.9 fL (7.2-11.7); RBC 2.71 Mil/uL (4.40-5.90); RED CELL DISTRIBUTION WIDTH 19.2 % (11.5-14.5); WHITE BLOOD COUNT 5.6 K/uL (4.8-10.8)
[2017-06-26 16:48] LABS: ALB/GLOB RATIO 0.9 (1.0-2.1); ALBUMIN 3.4 g/dL (3.5-5.0); CALCIUM 8.4 mg/dl (8.6-10.4)
[2017-06-26] MEDS ORDERED: Sodium Chloride 0.9% 250 ML IV ONE (17:00)
[2017-06-26] MEDS ORDERED: Iohexol 240 (50 ml) ONE (17:00)
[2017-06-26] MEDS ORDERED: Lidocaine 2% Jelly (Uro-Jet) ONE (17:00)
[2017-06-26] MEDS ORDERED: Ciprofloxacin 400mg/200ml D5W 400 MG/200 ML BAG IVPB ONE (17:00)
[2017-06-26] MEDS ORDERED: Midazolam 2 MG/2 ML VIAL ONE (17:06)
[2017-06-26] MEDS ORDERED: Propofol 10 mg/ml Inj (20 ML) ONE (17:08)
[2017-06-26] MEDS ORDERED: Sodium Chloride 0.9% 1,000 ML IV ONE (17:54)
[2017-06-26] MEDS ORDERED: Acetaminophen IV 1,000 MG in Premixed IV 1 EA IV PRN (17:57)
[2017-06-26] MEDS ORDERED: Sodium Chloride 0.9% 1,000 ML IV SCH (18:00)
--- NOTE | 2017-06-26 18:31 | RAD ---
HISTORY: RT KIDNEY STONE COMPARISON: 06/20/2016. FINDINGS: BOWEL: Normal. No obstruction. No free air. BONES: Normal. OTHER FINDINGS: New double-J stent catheter on the right in satisfactory position. Renal calculus disease is stable. IMPRESSION: Position of the double J stent catheter(s): Satisfactory
--- NOTE | 2017-06-26 18:31 | RAD ---
PROCEDURE: Intraoperative Fluoroscopy. HISTORY: RT KIDNEY STONE FINDINGS: Fluoroscopic assistance was provided for stent placement. Please seconds fluoroscopic time employed. Submitted images from the current procedure: 7.0
--- NOTE | 2017-06-26 21:52 | PN ---
DATE: 06/22/2017 SUBJECTIVE: See the previously dictated notes. We were scheduled today for a possible cystoscopy, ureteroscopy, laser lithotripsy, but for various reasons including scheduling reasons, including his potassium being 5.8, and he is predialysis, including OR reasons, we actually are going to delay the procedure. I explained this all to the patient at length. We discussed possibly doing it later in the day, but the patient is scheduled for dialysis and then after dialysis that he is equilibrated, it is better not to do it immediately. So, at this point we are going to postpone the procedure. I explained to the patient that we are not going to be doing it tomorrow on 06/23/2017, and his next opportunity will be on 06/26/2017. I also explained to the patient. See the plan listed below, but that most likely my best recommendation from his standpoint that he be discharged home and we come in and we do same-day surgery procedures. PAST MEDICAL AND SURGICAL HISTORY: No changes. REVIEW OF SYSTEMS: As listed above. PHYSICAL EXAMINATION: GENERAL: A well-nourished male, in no apparent distress. He is currently in no apparent distress. VITAL SIGNS: Within normal limits. ABDOMEN: Soft. DIAGNOSES: Urolithiasis, with a severe stone burden. ASSESSMENT AND PLAN: In summary, a very pleasant but extremely difficult patient, he is 47 years old, he is on dialysis. There are many notes dictated before. Urology alicia, he should be discharged home. There is no reason for acute admission to the hospital. I explained to the patient that it is going to take months and we are going to spread the procedures apart. I also recommend and I strongly recommend even at this point, I put a stent in, the patient had tremendous hydronephrosis and actually the stent is not causing too much discomfort and the patient reports that he is feeling much better with the decompressed kidney which is a good news. I did discuss with him that the general recommendation for this sized stone is percutaneous nephrostolithotomy. I understand his concerns, and I even would suggest and recommend a second opinion. I have given him the names of doctors. For various reason socially and insurance alicia, he does not think he could make it. But from urology standpoint, the next best treatment is percutaneous nephrostolithotomy. The idea of treating the stone burden with ureteroscopy, laser lithotripsy is going to require several steps. I discussed this with him at length, but we could take a shot, perhaps it will be a weak stone and it will shatter nicely and that is what he prefers, but in the interim we are canceling today's procedure, we are not able to do it. For various reasons, mostly medically, the potassium is elevated, the patient did not get a dialysis yet and there is great concern from the anesthesia department. So, from Urology standpoint, we are going to reschedule him for 06/26/2017. Hopefully, he will be discharged home and readmitted. I discussed this with the patient. As a separate issue, I also discussed the patient his narcotic intake. We will need to consider getting pain management on board for further recommendations and plans. Celso Ferro MD
--- NOTE | 2017-06-26 22:40 | CP.PCM.PN ---
Subjective - Date & Time of Evaluation Date of Evaluation: 06/26/17 Time of Evaluation: 17:00 - Subjective Subjective: Pt seen and examined, he is in OR, Alert; no new changes- same CVAT for stent today, cystoscopy, medically stable s/p recent blood transfusion Objective - Vital Signs/Intake and Output Vital Signs (last 24 hours): Temp Pulse Resp BP Pulse Ox 98.5 F 65 14 150/74 99 06/26/17 19:00 06/26/17 19:00 06/26/17 19:00 06/26/17 19:00 06/26/17 19:00 Intake and Output: 06/26/17 06/27/17 18:59 06:59 Intake Total 252 Output Total 500 Balance -248 - Medications Medications: Current Medications Alprazolam (Xanax) 0.5 mg PO Q12H PRN PRN Reason: Anxiety Benzocaine/Menthol (Cepacol Sore Throat) 1 maggie MT Q3 PRN PRN Reason: Sore Throat Last Admin: 06/18/17 09:52 Dose: 1 maggie Calcium Acetate (Phoslo) 667 mg PO TID [facility] Last Admin: 06/26/17 19:47 Dose: 667 mg Epoetin Zain (Procrit) 10,000 unit IV TTS [facility] Last Admin: 06/24/17 16:07 Dose: 10,000 unit Ferrous Sulfate (Feosol) 325 mg PO TID [facility] Last Admin: 06/26/17 19:47 Dose: 325 mg Heparin Sodium (Porcine) (Heparin) 5,000 units SC Q8 [facility] Last Admin: 06/20/17 06:13 Dose: Not Given Acetaminophen 1,000 mg/ (Miscellaneous) 100 mls @ 400 mls/hr IV Q6 PRN PRN Reason: Pain, moderate (4-7) Stop: 06/27/17 17:58 Oxycodone HCl (Oxycontin Extended Release Tab) 40 mg PO Q12 [facility] Last Admin: 06/26/17 21:17 Dose: 40 mg Oxycodone HCl (Oxycontin Extended Release Tab) 40 mg PO Q12 [facility] Pantoprazole Sodium (Protonix Ec Tab) 40 mg PO DAILY [facility] Last Admin: 06/26/17 09:36 Dose: Not Given Sevelamer Carbonate (Renvela) 1,600 mg PO TID [facility] Last Admin: 06/26/17 19:47 Dose: 1,600 mg Tamsulosin HCl (Flomax) 0.4 mg PO DAILY [facility] Last Admin: 06/26/17 09:36 Dose: Not Given - Labs Labs: 06/26/17 16:20 06/26/17 16:20 PT 11.7 SECONDS (9.7-12.2) 06/13/17 18:43 INR 1.0 06/13/17 18:43 APTT 33 SECONDS (21-34) 06/13/17 18:43 - Constitutional Appears: No Acute Distress - Head Exam Head Exam: ATRAUMATIC, NORMAL INSPECTION, NORMOCEPHALIC - Eye Exam Eye Exam: EOMI, Normal appearance, PERRL Pupil Exam: NORMAL ACCOMODATION, PERRL - Respiratory Exam Respiratory Exam: Clear to Ausculation Bilateral, NORMAL BREATHING PATTERN - Cardiovascular Exam Cardiovascular Exam: REGULAR RHYTHM, +S1, +S2. absent: Murmur - GI/Abdominal Exam GI & Abdominal Exam: Soft, Normal Bowel Sounds. absent: Tenderness - Back Exam Additional comments: CVA tenderness - Neurological Exam Neurological Exam: Alert, Awake, Oriented x3 - Psychiatric Exam Psychiatric exam: Normal Affect, Normal Mood Assessment and Plan (1) Pyelonephritis Assessment & Plan: For OR cystoscopy possible Stent Status: Acute (2) CLARISSA (acute kidney injury) Status: Acute (3) Abdominal pain Status: Acute (4) ESRD (end stage renal disease) Assessment & Plan: On HD Status: Acute (5) Anemia Assessment & Plan: s/p Transfusion Status: Chronic (6) Urinary tract infection Status: Suspected
[2017-06-27] MEDS: Oxycodone/Acetaminophen 5/325 mg Tab PO PRN ×3 (05:44→19:44)
--- NOTE | 2017-06-27 05:49 | OP ---
PROCEDURE DATE: 06/26/2017 PREOPERATIVE DIAGNOSES: Massive stone burden, urolithiasis, right lower pole stone, with multiple branches. POSTOPERATIVE DIAGNOSIS: Massive stone burden, urolithiasis, right lower pole stone, with multiple branches. PROCEDURE: Cystoscopy, ureteroscopy, and laser lithotripsy stone. COMPLICATIONS: There were no complications. ESTIMATED BLOOD LOSS: Less than 10 mL. INDICATIONS: See the history and physical for further details, see the multiple consultations. See the previously dictated progress notes. Pleasant gentleman, but somewhat extremely noncompliant gentleman, who never comes to the office, been readmitted several times with his stones and "infections." Previously, he had a percutaneous nephrostolithotomy and at that time he was a renal failure patient with creatinine of about 5, platelets dysfunction. Subsequently, after the percutaneous nephrostolithotomy, he was pre-dialysis at that time and subsequently he is now on dialysis completely. However, he still has his right kidney. He subsequently had a left nephrectomy. He still has his right kidney and it produces about a liter of urine a day. We have discussed the patient's options. He asked for a nephrectomy. We have discussed that, that is not our best recommendation, but it certainly a possibility. We requested the patient to go for a second opinion, but he is not able to for various reasons. So after discussing the options, he is now here for the above-listed procedure. I explained to the patient multiple times that he does not require inpatient hospitalization, that he should be at home and back and forth for same day surgery and that removing the stone the way we are doing it with cystoscopy, ureteroscopy, laser lithotripsy, is going to take probably at least 10 times, if not more, and even then we will be [place] if we are able to get the stone out entirely. However, the patient is not going to any other doctors. I have discussed the options with him at length and he is now here for the above listed procedure. I explained to him specifically great risks involved, and after discussing all those risks with the patient, he is here now. Today's procedure actually went fantastically well. We were able to really get a lot of good stone out. We can see there is noticeable change by fluoroscopic imaging criteria, although again there is tremendous stone burden left behind it at least a 2 to 3 cm stone and there is also branches, but we will talk about him afterwards in terms of other options like shockwave lithotripsy (although this would not be my recommendation either). Although, the patient, now that he is a dialysis patient, probably has much improved functioning now that he is clearing fluid and getting rid of waste products. Of note, his potassium last week was 5.8, we had him scheduled about and again his potassium is elevated today as well. So he is getting dialyzed three times a week. As discussing options with the patient, risks, benefits and alternatives at length with the patient and also with his and expressing my concerns, he is here now for the above procedure itself. DESCRIPTION OF PROCEDURE: After obtaining informed consent, the patient was placed on the table. Routine monitors placed. Time-out was called to confirm the patient. We gave an extra dose of antibiotics. Even with the renal failure, we gave him gentamicin because we knew we are manipulating a lot of stone. The patient has a stent in good location. I left this in throughout the entire case. I could watch the entire case and make sure we did not address the stone and hurt the stent. We put a wire up to the kidney without difficulty and put the ureteroscope up to the kidney directly. We began laser lithotripsy. We used a 2.5 joules with a frequency of about 5 and we just working and irrigating and working until it was less clear. Then after a long time, we just decided to stop for safety issues, but throughout the entire time of the procedure, we had good visualization the entire procedure was done with the camera, so my assistant signal maintainer can see me and fluoroscopic imaging when we had good direct solid visualization. At this point, I removed the laser FiberWire standby. Everybody wearing the laser glasses would take off the laser glasses and we confirmed the stent was in good location and it was still intact. I pulled back the safety wire. Without difficulty, it is also intact. We checked it carefully. The patient tolerated the procedure well without complications. ADDENDUM: My recommendation is going to be before that the patient go home with antibiotics and go home after his dialysis, and we will schedule the next procedure in about a week or two. We have put the patient on Flomax in an effort to help pass the stones. Further plans will follow. Celso Ferro MD [facility] # [id number]
--- NOTE | 2017-06-27 09:07 | CP.PCM.PN ---
Subjective - Date & Time of Evaluation Date of Evaluation: 06/27/17 Time of Evaluation: 18:00 - Subjective Subjective: Pt seen & examined s/p stent placemet cystoscopy, able to pass/boid stones in urine Objective - Vital Signs/Intake and Output Vital Signs (last 24 hours): Temp Pulse Resp BP Pulse Ox 97.8 F 72 20 131/64 96 06/27/17 08:00 06/27/17 08:00 06/27/17 08:00 06/27/17 08:00 06/27/17 08:00 Intake and Output: 06/27/17 06/27/17 06:59 18:59 Intake Total 610 Output Total 250 Balance 360 - Medications Medications: Current Medications Alprazolam (Xanax) 0.5 mg PO Q12H PRN PRN Reason: Anxiety Benzocaine/Menthol (Cepacol Sore Throat) 1 maggie MT Q3 PRN PRN Reason: Sore Throat Last Admin: 06/18/17 09:52 Dose: 1 maggie Calcium Acetate (Phoslo) 667 mg PO TID [facility] Last Admin: 06/26/17 19:47 Dose: 667 mg Epoetin Zain (Procrit) 10,000 unit IV TTS [facility] Last Admin: 06/24/17 16:07 Dose: 10,000 unit Ferrous Sulfate (Feosol) 325 mg PO TID [facility] Last Admin: 06/26/17 19:47 Dose: 325 mg Heparin Sodium (Porcine) (Heparin) 5,000 units SC Q8 [facility] Last Admin: 06/20/17 06:13 Dose: Not Given Acetaminophen 1,000 mg/ (Miscellaneous) 100 mls @ 400 mls/hr IV Q6 PRN PRN Reason: Pain, moderate (4-7) Stop: 06/27/17 17:58 Oxycodone HCl (Oxycontin Extended Release Tab) 40 mg PO Q12 [facility] Last Admin: 06/26/17 22:42 Dose: Not Given Oxycodone/Acetaminophen (Percocet 5/325 Mg Tab) 1 tab PO Q4H PRN PRN Reason: prn for pain Stop: 06/29/17 23:51 Last Admin: 06/27/17 05:44 Dose: 1 tab Pantoprazole Sodium (Protonix Ec Tab) 40 mg PO DAILY [facility] Last Admin: 06/26/17 09:36 Dose: Not Given Sevelamer Carbonate (Renvela) 1,600 mg PO TID [facility] Last Admin: 06/26/17 19:47 Dose: 1,600 mg Tamsulosin HCl (Flomax) 0.4 mg PO DAILY [facility] Last Admin: 06/26/17 09:36 Dose: Not Given - Labs Labs: 06/26/17 16:20 06/26/17 16:20 PT 11.7 SECONDS (9.7-12.2) 06/13/17 18:43 INR 1.0 06/13/17 18:43 APTT 33 SECONDS (21-34) 06/13/17 18:43 - Constitutional Appears: No Acute Distress - Head Exam Head Exam: ATRAUMATIC, NORMAL INSPECTION, NORMOCEPHALIC - Eye Exam Eye Exam: EOMI, Normal appearance, PERRL Pupil Exam: NORMAL ACCOMODATION, PERRL - Respiratory Exam Respiratory Exam: Clear to Ausculation Bilateral, NORMAL BREATHING PATTERN - Cardiovascular Exam Cardiovascular Exam: REGULAR RHYTHM, +S1, +S2. absent: Murmur - GI/Abdominal Exam GI & Abdominal Exam: Soft, Normal Bowel Sounds. absent: Tenderness - Back Exam Back Exam: CVA tenderness (L), CVA tenderness (R) - Neurological Exam Neurological Exam: Alert, Awake, CN II-XII Intact, Normal Gait, Oriented x3 Assessment and Plan (1) Pyelonephritis Status: Acute (2) CLARISSA (acute kidney injury) Status: Acute (3) Abdominal pain Status: Acute (4) ESRD (end stage renal disease) Status: Acute (5) Anemia Status: Chronic (6) Urinary tract infection Status: Suspected
[2017-06-27] MEDS: Pantoprazole 40 mg EC Tab PO SCH ×2 (10:17→14:24)
[2017-06-27] MEDS: oxyCODONE 40 mg ER Tab (oxyCONTIN) PO SCH ×2 (10:22→21:10)
[2017-06-27] MEDS: Epoetin Alfa 10,000 unit/ml Dialysis IV SCH (10:33)
--- NOTE | 2017-06-27 12:10 | CP.PCM.PN ---
Subjective - Date & Time of Evaluation Date of Evaluation: 06/27/17 Time of Evaluation: 12:09 - Subjective Subjective: seen and examined improved abdominal pain walking in room passing debris/stones in urine after lithotripsy no fevers chills sob nausea vomiting diarrhea dizziness headache chest pain palpitations rash Objective - Vital Signs/Intake and Output Vital Signs (last 24 hours): Temp Pulse Resp BP Pulse Ox 98.2 F 73 19 134/70 98 06/27/17 09:00 06/27/17 09:00 06/27/17 09:00 06/27/17 10:00 06/27/17 09:00 Intake and Output: 06/27/17 06/27/17 06:59 18:59 Intake Total 610 Output Total 250 Balance 360 - Medications Medications: Current Medications Alprazolam (Xanax) 0.5 mg PO Q12H PRN PRN Reason: Anxiety Benzocaine/Menthol (Cepacol Sore Throat) 1 maggie MT Q3 PRN PRN Reason: Sore Throat Last Admin: 06/18/17 09:52 Dose: 1 maggie Calcium Acetate (Phoslo) 667 mg PO TID [facility] Last Admin: 06/27/17 10:17 Dose: Not Given Epoetin Zain (Procrit) 10,000 unit IV TTS [facility] Last Admin: 06/27/17 10:33 Dose: 10,000 unit Ferrous Sulfate (Feosol) 325 mg PO TID [facility] Last Admin: 06/27/17 10:16 Dose: Not Given Heparin Sodium (Porcine) (Heparin) 5,000 units SC Q8 [facility] Last Admin: 06/20/17 06:13 Dose: Not Given Acetaminophen 1,000 mg/ (Miscellaneous) 100 mls @ 400 mls/hr IV Q6 PRN PRN Reason: Pain, moderate (4-7) Stop: 06/27/17 17:58 Oxycodone HCl (Oxycontin Extended Release Tab) 40 mg PO Q12 [facility] Last Admin: 06/27/17 10:22 Dose: 40 mg Oxycodone/Acetaminophen (Percocet 5/325 Mg Tab) 1 tab PO Q4H PRN PRN Reason: prn for pain Stop: 06/29/17 23:51 Last Admin: 06/27/17 05:44 Dose: 1 tab Pantoprazole Sodium (Protonix Ec Tab) 40 mg PO DAILY [facility] Last Admin: 06/27/17 10:17 Dose: Not Given Sevelamer Carbonate (Renvela) 1,600 mg PO TID [facility] Last Admin: 06/27/17 10:17 Dose: Not Given Tamsulosin HCl (Flomax) 0.4 mg PO DAILY [facility] Last Admin: 06/27/17 10:16 Dose: Not Given - Labs Labs: 06/26/17 16:20 06/26/17 16:20 PT 11.7 SECONDS (9.7-12.2) 06/13/17 18:43 INR 1.0 06/13/17 18:43 APTT 33 SECONDS (21-34) 06/13/17 18:43 - Constitutional Appears: Non-toxic, No Acute Distress - Head Exam Head Exam: NORMAL INSPECTION - Eye Exam Eye Exam: Normal appearance Pupil Exam: PERRL - ENT Exam ENT Exam: Mucous Membranes Moist, Normal Exam - Neck Exam Neck Exam: Full ROM, Normal Inspection - Respiratory Exam Respiratory Exam: Clear to Ausculation Bilateral, NORMAL BREATHING PATTERN - Cardiovascular Exam Cardiovascular Exam: REGULAR RHYTHM, RRR Additional comments: lue avf w/ thrill - GI/Abdominal Exam GI & Abdominal Exam: Soft, Normal Bowel Sounds - Extremities Exam Extremities Exam: Full ROM, Normal Inspection - Neurological Exam Neurological Exam: Alert, Awake, Oriented x3 - Psychiatric Exam Psychiatric exam: Normal Affect, Normal Mood - Skin Skin Exam: Intact, Warm Assessment and Plan (1) Pyelonephritis Status: Acute (2) Abdominal pain Status: Acute (3) Chronic pyelonephritis Status: Acute (4) ESRD (end stage renal disease) Status: Acute (5) Hypertension Status: Acute (6) S/p nephrectomy Status: Acute - Assessment and Plan (Free Text) Assessment: maintain hd tts urology management pain control bp acceptable bernie w/ hd
[2017-06-27 16:13] VITALS: RESP 20
--- NOTE | 2017-06-27 17:02 | RAD ---
HISTORY: s/p lithotripsy //please compare with previous COMPARISON: 06/26/[address] abdomen and pelvis 09/18/2015 FINDINGS: BOWEL: Stool retention. BONES: Hyperdensity inferior right pubic bone OTHER FINDINGS: The overall large right calculus burden - with large dominant staghorn calculus 4.5 x 3.3 cm is similar. Smaller large calculi/ calculus clusters superolateral: Right lateral and inferolateral similar appearing. The clustered calculi inferior right renal pole probably similar oblique view compared a prior study. No interval calculi along the right ureteral stent or over bladder if right ureteral stent proximal coil full lab to right renal calculus inferred in extreme right upper renal pole calices IMPRESSION: No significant change in the overall heavy right calculus burden with large dominant staghorn calculus present. Right ureteral stent positioning as above Osseous hypertrophic changes artery inferior medial right hip -similar with CT 09/18/2015 study
[2017-06-28] MEDS: Oxycodone/Acetaminophen 5/325 mg Tab PO PRN ×3 (05:09→17:55)
--- NOTE | 2017-06-28 08:25 | CP.PCM.PN ---
Subjective - Date & Time of Evaluation Date of Evaluation: 06/28/17 Time of Evaluation: 08:23 - Subjective Subjective: ambulating in koenig notes pain is improved no distress tolerated hd yesterday no chest pain no rash good appetite no arthralgias no urinary issues no fever no headache no sore throat Objective - Vital Signs/Intake and Output Vital Signs (last 24 hours): Temp Pulse Resp BP Pulse Ox 98.7 F 80 20 133/73 96 06/28/17 07:34 06/28/17 07:34 06/28/17 07:34 06/28/17 07:34 06/28/17 07:34 Intake and Output: 06/28/17 06/28/17 06:59 18:59 Intake Total 300 Balance 300 - Medications Medications: Current Medications Benzocaine/Menthol (Cepacol Sore Throat) 1 maggie MT Q3 PRN PRN Reason: Sore Throat Last Admin: 06/18/17 09:52 Dose: 1 maggie Calcium Acetate (Phoslo) 667 mg PO TID [facility] Last Admin: 06/27/17 17:08 Dose: 667 mg Epoetin Zain (Procrit) 10,000 unit IV TTS [facility] Last Admin: 06/27/17 10:33 Dose: 10,000 unit Ferrous Sulfate (Feosol) 325 mg PO TID [facility] Last Admin: 06/27/17 17:08 Dose: 325 mg Heparin Sodium (Porcine) (Heparin) 5,000 units SC Q8 [facility] Last Admin: 06/20/17 06:13 Dose: Not Given Oxycodone HCl (Oxycontin Extended Release Tab) 40 mg PO Q12 [facility] Last Admin: 06/27/17 21:10 Dose: 40 mg Oxycodone/Acetaminophen (Percocet 5/325 Mg Tab) 1 tab PO Q4H PRN PRN Reason: prn for pain Stop: 06/29/17 23:51 Last Admin: 06/28/17 05:09 Dose: 1 tab Pantoprazole Sodium (Protonix Ec Tab) 40 mg PO DAILY [facility] Last Admin: 06/27/17 14:24 Dose: 40 mg Sevelamer Carbonate (Renvela) 1,600 mg PO TID [facility] Last Admin: 06/27/17 17:08 Dose: 1,600 mg Tamsulosin HCl (Flomax) 0.4 mg PO DAILY [facility] Last Admin: 06/27/17 14:24 Dose: 0.4 mg - Labs Labs: 06/26/17 16:20 06/26/17 16:20 PT 11.7 SECONDS (9.7-12.2) 06/13/17 18:43 INR 1.0 06/13/17 18:43 APTT 33 SECONDS (21-34) 06/13/17 18:43 - Constitutional Appears: Non-toxic, No Acute Distress - Eye Exam Eye Exam: EOMI - ENT Exam ENT Exam: Mucous Membranes Moist - Neck Exam Neck Exam: Full ROM. absent: Lymphadenopathy - Respiratory Exam Respiratory Exam: NORMAL BREATHING PATTERN. absent: Accessory Muscle Use - Cardiovascular Exam Cardiovascular Exam: REGULAR RHYTHM. absent: Rubs - GI/Abdominal Exam GI & Abdominal Exam: Soft, Normal Bowel Sounds. absent: Tenderness - Extremities Exam Extremities Exam: absent: Pedal Edema Assessment and Plan - Assessment and Plan (Free Text) Assessment: esrd recurrent kidney stones and chronic pyelo s/p stent and lithotripsy for gu management pain control maint HD
[2017-06-28] MEDS: Pantoprazole 40 mg EC Tab PO SCH (10:08)
[2017-06-28] MEDS: oxyCODONE 40 mg ER Tab (oxyCONTIN) PO SCH (10:12)
--- NOTE | 2017-06-28 15:02 | CP.PCM.PN ---
Subjective - Date & Time of Evaluation Date of Evaluation: 06/28/17 Time of Evaluation: 15:02 - Subjective Subjective: Alert, orientedx3, no acute pain or distress. Objective - Vital Signs/Intake and Output Vital Signs (last 24 hours): Temp Pulse Resp BP Pulse Ox 98.7 F 80 20 133/73 96 06/28/17 07:34 06/28/17 07:34 06/28/17 07:34 06/28/17 07:34 06/28/17 07:34 Intake and Output: 06/28/17 06/28/17 06:59 18:59 Intake Total 300 Balance 300 - Medications Medications: Current Medications Benzocaine/Menthol (Cepacol Sore Throat) 1 maggie MT Q3 PRN PRN Reason: Sore Throat Last Admin: 06/18/17 09:52 Dose: 1 maggie Calcium Acetate (Phoslo) 667 mg PO TID [facility] Last Admin: 06/28/17 13:58 Dose: 667 mg Epoetin Zain (Procrit) 10,000 unit IV TTS [facility] Last Admin: 06/27/17 10:33 Dose: 10,000 unit Ferrous Sulfate (Feosol) 325 mg PO TID [facility] Last Admin: 06/28/17 13:58 Dose: 325 mg Heparin Sodium (Porcine) (Heparin) 5,000 units SC Q8 [facility] Last Admin: 06/20/17 06:13 Dose: Not Given Oxycodone HCl (Oxycontin Extended Release Tab) 40 mg PO Q12 [facility] Last Admin: 06/28/17 10:12 Dose: 40 mg Oxycodone/Acetaminophen (Percocet 5/325 Mg Tab) 1 tab PO Q4H PRN PRN Reason: prn for pain Stop: 06/29/17 23:51 Last Admin: 06/28/17 14:01 Dose: 1 tab Pantoprazole Sodium (Protonix Ec Tab) 40 mg PO DAILY [facility] Last Admin: 06/28/17 10:08 Dose: 40 mg Sevelamer Carbonate (Renvela) 1,600 mg PO TID [facility] Last Admin: 06/28/17 13:58 Dose: 1,600 mg Tamsulosin HCl (Flomax) 0.4 mg PO DAILY [facility] Last Admin: 06/28/17 10:08 Dose: 0.4 mg - Labs Labs: 06/26/17 16:20 06/26/17 16:20 PT 11.7 SECONDS (9.7-12.2) 06/13/17 18:43 INR 1.0 06/13/17 18:43 APTT 33 SECONDS (21-34) 06/13/17 18:43 Assessment and Plan - Assessment and Plan (Free Text) Assessment: patient iseen and examined. Alert, ambulating, no distress. Cleared by , discussed with DR Marc, plan to discharge home today. Advised to continue with HD as scheduled, follow up with DR Ferro in 1 week. All prescriptions given.
[2017-06-28 17:13] VITALS: BP 109/52; PULSE 71; TEMP 98.3; O2SAT 97
--- NOTE | 2017-06-28 18:42 | PCM.URO ---
Urology Progress Note - General General: No Complaints, Tolerating Diet - Subjective Abdominal Pain: Yes (mild) Flank Pain: No Nausea: No Vomiting: No Voiding Well: Yes Hematuria: No Stone Passed: Yes Dsypnea: No Chest Pain: No Fever & Chills: No - Objective Intake & Output: Intake & Output 06/27/17 06/28/17 06/28/17 18:59 06:59 18:59 Intake Total 400 300 Balance 400 300 Intake: Oral 400 300 Other: # Voids Urine, Voided 1 1 # Bowel Movements 0 Vital Signs: Vital Signs - 24 hr 06/27/17 06/28/17 06/28/17 23:51 07:34 16:00 Temperature 98.5 F 98.7 F 98.3 F Pulse Rate 73 80 71 Respiratory 20 20 20 Rate Blood Pressure 133/67 133/73 109/52 L O2 Sat by Pulse 97 96 97 Oximetry - Physical Exam Abdominal Exam: Non-Distended. absent: Soft, Non-Tender Back: No CVA Tenderness - Plan Additional Information: Imp: stable p ureteroscopy and laser lithotripsy. stent in place - Date & Time of Note Date: 06/28/17 Time: 11:05
--- NOTE | 2017-06-28 22:35 | CP.PCM.PN ---
Subjective - Date & Time of Evaluation Date of Evaluation: 06/28/17 Time of Evaluation: 15:00 Objective - Vital Signs/Intake and Output Vital Signs (last 24 hours): Temp Pulse Resp BP Pulse Ox 98.3 F 71 20 109/52 L 97 06/28/17 16:00 06/28/17 16:00 06/28/17 16:00 06/28/17 16:00 06/28/17 16:00 - Medications Medications: Current Medications Benzocaine/Menthol (Cepacol Sore Throat) 1 maggie MT Q3 PRN PRN Reason: Sore Throat Last Admin: 06/18/17 09:52 Dose: 1 maggie Calcium Acetate (Phoslo) 667 mg PO TID [facility] Last Admin: 06/28/17 17:41 Dose: 667 mg Epoetin Zain (Procrit) 10,000 unit IV TTS [facility] Last Admin: 06/27/17 10:33 Dose: 10,000 unit Ferrous Sulfate (Feosol) 325 mg PO TID [facility] Last Admin: 06/28/17 17:41 Dose: 325 mg Heparin Sodium (Porcine) (Heparin) 5,000 units SC Q8 [facility] Last Admin: 06/20/17 06:13 Dose: Not Given Oxycodone HCl (Oxycontin Extended Release Tab) 40 mg PO Q12 [facility] Last Admin: 06/28/17 10:12 Dose: 40 mg Oxycodone/Acetaminophen (Percocet 5/325 Mg Tab) 1 tab PO Q4H PRN PRN Reason: prn for pain Stop: 06/29/17 23:51 Last Admin: 06/28/17 17:55 Dose: 1 tab Pantoprazole Sodium (Protonix Ec Tab) 40 mg PO DAILY [facility] Last Admin: 06/28/17 10:08 Dose: 40 mg Sevelamer Carbonate (Renvela) 1,600 mg PO TID [facility] Last Admin: 06/28/17 17:40 Dose: 1,600 mg Tamsulosin HCl (Flomax) 0.4 mg PO DAILY [facility] Last Admin: 06/28/17 10:08 Dose: 0.4 mg - Labs Labs: 06/26/17 16:20 06/26/17 16:20 PT 11.7 SECONDS (9.7-12.2) 06/13/17 18:43 INR 1.0 06/13/17 18:43 APTT 33 SECONDS (21-34) 06/13/17 18:43 Assessment and Plan (1) Pyelonephritis Status: Acute (2) CLARISSA (acute kidney injury) Status: Acute (3) Abdominal pain Status: Acute (4) ESRD (end stage renal disease) Status: Acute (5) Anemia Status: Chronic (6) Urinary tract infection Status: Suspected
--- NOTE | 2017-06-29 | CP.PCM.DIS ---
Provider - Provider Date of Admission: 06/15/17 14:51 Attending physician: Mikel Marc MD Time Spent in preparation of Discharge (in minutes): 45 Diagnosis - Discharge Diagnosis (1) Pyelonephritis Status: Acute (2) CLARISSA (acute kidney injury) Status: Acute (3) Abdominal pain Status: Acute (4) ESRD (end stage renal disease) Status: Acute (5) Anemia Status: Chronic (6) Urinary tract infection Status: Suspected Priority: High Hospital Course - Lab Results Lab Results: Micro Results 06/19/17 22:33 Urine Urine Culture - Final No Growth (<1,000 CFU/ML) 06/15/17 14:50 Throat Group B Streptococcus Culture - Final NO BETA STREP GROUP B ISOLATED. 06/15/17 14:50 Throat Group A Strep Throat Culture - Final NO BETA STREP GROUP A ISOLATED. 06/13/17 17:34 Urine Urine Culture - Final No Growth (<1,000 CFU/ML) Most Recent Lab Values WBC 5.6 K/uL (4.8-10.8) 06/26/17 16:20 RBC 2.71 Mil/uL (4.40-5.90) L 06/26/17 16:20 Hgb 9.1 g/dL (12.0-18.0) L 06/26/17 16:20 Hct 27.0 % (35.0-51.0) L 06/26/17 16:20 MCV 99.6 fL (80.0-94.0) H 06/26/17 16:20 MCH 33.6 pg (27.0-31.0) H 06/26/17 16:20 MCHC 33.7 g/dL (33.0-37.0) 06/26/17 16:20 RDW 19.2 % (11.5-14.5) H 06/26/17 16:20 Plt Count 245 K/uL (130-400) 06/26/17 16:20 MPV 6.9 fL (7.2-11.7) L 06/26/17 16:20 Neut % (Auto) 47.3 % (50.0-75.0) L 06/13/17 18:43 Lymph % (Auto) 34.5 % (20.0-40.0) 06/13/17 18:43 [place] % (Auto) 12.5 % (0.0-10.0) H 06/13/17 18:43 Eos % (Auto) 4.2 % (0.0-4.0) H 06/13/17 18:43 Baso % (Auto) 1.5 % (0.0-2.0) 06/13/17 18:43 Neut # 1.7 K/uL (1.8-7.0) L 06/13/17 18:43 Lymph # 1.2 K/uL (1.0-4.3) 06/13/17 18:43 [place] # 0.4 K/uL (0.0-0.8) 06/13/17 18:43 Eos # 0.1 K/uL (0.0-0.7) 06/13/17 18:43 Baso # 0.1 K/uL (0.0-0.2) 06/13/17 18:43 PT 11.7 SECONDS (9.7-12.2) 06/13/17 18:43 INR 1.0 06/13/17 18:43 APTT 33 SECONDS (21-34) 06/13/17 18:43 Sodium 131 mmol/L (132-148) L 06/26/17 16:20 Potassium 5.7 mmol/L (3.6-5.2) H 06/26/17 16:20 Chloride 99 mmol/L (98-107) 06/26/17 16:20 Carbon Dioxide 19 mmol/L (22-30) L 06/26/17 16:20 Anion Gap 19 (10-20) 06/26/17 16:20 BUN 60 mg/dL (9-20) H 06/26/17 16:20 Creatinine 11.6 mg/dL (0.8-1.5) H* 06/26/17 16:20 Est GFR ( Amer) 6 06/26/17 16:20 Est GFR (Non-Af Amer) 5 06/26/17 16:20 Random Glucose 91 mg/dL (75-110) 06/26/17 16:20 Calcium 8.4 mg/dl (8.6-10.4) L 06/26/17 16:20 Phosphorus 6.4 mg/dL (2.5-4.5) H 06/14/17 17:22 % Saturation 19 (20-55) L 06/17/17 11:33 Ferritin 335.0 ng/mL 06/17/17 11:33 Total Bilirubin 0.4 mg/dL (0.2-1.3) 06/26/17 16:20 AST 14 U/L (17-59) L D 06/26/17 16:20 ALT 16 U/L (21-72) L 06/26/17 16:20 Alkaline Phosphatase 69 U/L (38-126) 06/26/17 16:20 Total Protein 7.2 g/dL (6.3-8.3) 06/26/17 16:20 Albumin 3.4 g/dL (3.5-5.0) L 06/26/17 16:20 Globulin 3.7 gm/dL (2.2-3.9) 06/26/17 16:20 Albumin/Globulin Ratio 0.9 (1.0-2.1) L 06/26/17 16:20 Lipase 65 U/L (23-300) 06/13/17 18:43 Urine Color Yellow (YELLOW) 06/19/17 22:44 Urine Clarity Turbid (Clear) 06/19/17 22:44 Urine pH 8.0 (5.0-8.0) 06/19/17 22:44 Ur Specific [place] 1.009 (1.003-1.030) 06/19/17 22:44 Urine Protein 2+ mg/dL (NEGATIVE) H 06/19/17 22:44 Urine Glucose (UA) Normal mg/dL (Normal) 06/19/17 22:44 Urine Ketones Negative mg/dL (NEGATIVE) 06/19/17 22:44 Urine Blood 1+ (NEGATIVE) H 06/19/17 22:44 Urine Nitrate Negative (NEGATIVE) 06/19/17 22:44 Urine Bilirubin Negative (NEGATIVE) 06/19/17 22:44 Urine Urobilinogen Normal mg/dL (0.2-1.0) 06/19/17 22:44 Ur Leukocyte Esterase 3+ Charleen/uL (Negative) H 06/19/17 22:44 Urine WBC (Auto) 1986 /hpf (0-5) H 06/19/17 22:44 Urine RBC (Auto) 52 /hpf (0-3) H 06/19/17 22:44 Urine WBC Clumps (Auto) Many /hpf (NONE) H 06/13/17 19:29 Urine Bacteria Mod (<OCC) H 06/19/17 22:44 Blood Type O POSITIVE 06/24/17 17:17 Antibody Screen Negative 06/24/17 17:17 - Hospital Course Hospital Course: Pt is feeling better, s/p stent and passing stones patient iseen and examined. Alert, ambulating, no distress. Cleared by , Plan to discharge home today. Advised to continue with HD as scheduled, follow up with DR Frero in 1 week. All prescriptions given. Discharge Exam - Head Exam Head Exam: ATRAUMATIC, NORMAL INSPECTION, NORMOCEPHALIC - Eye Exam Eye Exam: EOMI, Normal appearance, PERRL Pupil Exam: NORMAL ACCOMODATION, PERRL - ENT Exam ENT Exam: Mucous Membranes Moist - Respiratory Exam Respiratory Exam: Clear to PA & Lateral, NORMAL BREATHING PATTERN - Cardiovascular Exam Cardiovascular Exam: REGULAR RHYTHM, +S1, +S2 - GI/Abdominal Exam GI & Abdominal Exam: Normal Bowel Sounds - Rectal Exam Rectal Exam: Deferred Discharge Plan - Discharge Medications Prescriptions: Ferrous Sulfate [Feosol] 325 mg PO BID #60 tab Tamsulosin [Flomax] 0.4 mg PO DAILY #30 cap oxyCODONE/Acetaminophen [Percocet 5/325 mg Tab] 1 tab PO Q4H PRN #20 tab PRN Reason: prn for pain Pantoprazole [Protonix EC Tab] 40 mg PO DAILY #30 ect Alprazolam [Xanax] 0.5 mg PO Q12H PRN #20 tab PRN Reason: Anxiety - Follow Up Plan Condition: STABLE Disposition: HOME/ ROUTINE Instructions: Iron Supplements (By mouth), Oxycodone/Acetaminophen (By mouth), Alprazolam (By mouth), Tamsulosin (By mouth), Pantoprazole (By mouth), Kidney Stones (DC), Acute Pyelonephritis (DC) Referrals: Mikel Marc MD [Staff Provider] - Balta Ferro MD [Staff Provider] -
== END 2017-06-28 20:00 | disposition home or self-care (01) | DRG 304 ==
LOC: C.ER 15:25 → C.9E 19:05 → C.3T 19:45 → OBSVTOIN 06-15 14:51 → C.3T 06-15 19:13
PROVIDERS: ADMIT Internal Medicine; ATTEND Internal Medicine
PROC: 5A1D70Z Performance of Urinary Filtration, Intermittent, Less than 6 Hours Per Day (ICD-10-PCS; 2017-06-15)
PROC: BT1DZZZ Fluoroscopy of Right Kidney, Ureter and Bladder (ICD-10-PCS; 2017-06-20)
PROC: 0T768DZ Dilation of Right Ureter with Intraluminal Device, Via Natural or Artificial Opening Endoscopic (ICD-10-PCS; 2017-06-20)
PROC: 30233N1 Transfusion of Nonautologous Red Blood Cells into Peripheral Vein, Percutaneous Approach (ICD-10-PCS; 2017-06-25)
PROC: 0TC08ZZ Extirpation of Matter from Right Kidney, Via Natural or Artificial Opening Endoscopic (ICD-10-PCS; principal; 2017-06-26 14:30)
DX: N13.2 Hydronephrosis with renal and ureteral calculous obstruction (principal); I12.0 Hypertensive chronic kidney disease with stage 5 chronic kidney disease or end stage renal disease; N17.9 Acute kidney failure, unspecified; N10 Acute pyelonephritis; N18.6 End stage renal disease; D64.9 Anemia, unspecified; F41.9 Anxiety disorder, unspecified; Z99.2 Dependence on renal dialysis; Z86.711 Personal history of pulmonary embolism; F17.210 Nicotine dependence, cigarettes, uncomplicated; Z91.14 Patient's other noncompliance with medication regimen; Z87.442 Personal history of urinary calculi

== ENCOUNTER 2017-07-10 12:48 | Day surgery (SDC) | payer OTHER ==
[2017-07-10 14:28] LABS: CALCIUM 9.1 mg/dl (8.6-10.4)
[2017-07-10] MEDS ORDERED: cefTRIAXone 1 gm 1 GM/100 ML BAG IVPB ONE (14:46)
[2017-07-10] MEDS ORDERED: Iohexol 240 (50 ml) ONE (14:46)
[2017-07-10] MEDS ORDERED: Propofol 10 mg/ml Inj (20 ML) ONE (15:25)
[2017-07-10] MEDS ORDERED: Lidocaine Hydrochloride 5 ML INJ ONE (15:25)
[2017-07-10] MEDS ORDERED: Midazolam 2 MG/2 ML VIAL ONE (15:25)
[2017-07-10] MEDS ORDERED: Oxycodone/Acetaminophen 5/325 mg Tab PO PRN (16:55)
--- NOTE | 2017-07-10 16:59 | RAD ---
PROCEDURE: Intraoperative Fluoroscopy. HISTORY: RIGHT KIDNEY STONE FINDINGS: Fluoroscopic assistance was provided. 38 seconds fluoroscopy time utilized during this procedure. Radiation dose = 0.97693 mGy-cm.
[2017-07-10 17:41] VITALS: RESP 12; TEMP 97.5
[2017-07-10 17:45] VITALS: PULSE 73; O2SAT 100
[2017-07-10 18:59] VITALS: BP 151/70
--- NOTE | 2017-07-11 09:19 | RAD ---
HISTORY: COMPARISON: 06/27/2017 FINDINGS: BOWEL: . No obstruction. BONES: Bilateral hip arthrosis OTHER FINDINGS: History interval right laser lithotripsy. Interval change in overall density and mineralization of dominant right staghorn calculus. Additional right calculus burden otherwise unchanged. No interval calculi along the right ureteral stent. History of right ureteral stent exchange -proximal coil now more inferiorly positioned over right dominant staghorn intra pelvic calculus. Distal core projects over bladder IMPRESSION: Interval changes as above
--- NOTE | 2017-08-14 09:22 | OP ---
PROCEDURE DATE: 07/10/2017 PREOPERATIVE DIAGNOSES: Hydronephrosis, solitary kidney, tremendous stone burden, all in the right kidney. Patient is status post left nephrectomy for stone disease. Patient has also renal failure, hematuria. POSTOPERATIVE DIAGNOSES: Hydronephrosis, solitary kidney, tremendous stone burden, all in the right kidney. Patient is status post left nephrectomy for stone disease. Patient has also renal failure, hematuria. PROCEDURE: Cystoscopy, removal of right double-J stent, right ureteroscopy, right renoscopy, right laser lithotripsy of stone disease, and insertion of right double J-stent. There were no complications. INDICATIONS: See the history and physical for further details. This is a very pleasant gentleman here for the above. Pleasant but extremely noncompliant although likely he has been maximally complaint, although at the end, our recommendation was to consider percutaneous nephrolithotomy by us or even better to go to an academic center because he was predialysis at that time with renal failure and azotemia with very high BUN and creatinine and just about to have renal dialysis but he was not yet. At that time, was evaluated. Patient underwent a percutaneous nephrolithotomy and in an effort to save further kidney function. Even this minute, we have discussed with patient the possibility for nephrectomy for his right kidney. This will certainly prevent some of his stone disease that he is experiencing, infection; however he does make urine and his volume is above a litre day, still requires dialysis and it is not good urine, but at least he is able to get fluid off. We have discussed this at length. We have discussed it also with his renal doctors. And after much discussion, he is in now for the above. Our recommendation is again to go for percutaneous because he is having stone burden; however, he has refused this. So, we are going to bring him yet for another ureteroscopy, renoscopy and the above listed procedures. I explained to the patient that it is going to require several treatments. We are making slow progress to the x-ray changes. Procedures are cystoscopy, removal of right ureteral stent, right ureteroscopy, right renoscopy, right retrograde pyelogram, insertion of right double J-stent. There were no complications. DESCRIPTION OF PROCEDURE: After obtaining informed consent, the patient was placed on the table. Routine monitors were placed. Time-out was called. We confirmed the patient and positioning. We introduced the cystoscope via the urethra, identified the old ureteral stent, removed it through the orifice, put a wire up to the kidney. We then used a dual lumen to dilate the lower ureter. We put a second wire up with a flexible ureteroscope. We could see now with the multiple films that are saved, we are able to get right on the stone and provide laser energy and just really attack the stone as best as possible so we could . We worked diligently and quickly on the stone. We had direct vision. We lasered it as much as possible. We were not able to see easily. Of course, I just want to mention, we had called time-out. The patient was receiving antibiotic prophylaxis. All this was done in standard fashion and all is listed in the chart. At this point, although we could still see the stones, we have made as much progress as we could make today. We put a double J stent in over the wire. We confirmed the patient and positioning. We emptied the bladder. The patient tolerated the procedure without complications. We will make recommendation, I am still encouraging the patient to seek second opinion or to consider percutaneous nephrolithotomy, either we could do it or somebody else to do it, but the patient has not accepted this idea. Celso Ferro MD
== END 2017-07-10 18:50 | disposition home or self-care (01) ==
LOC: C.SDS 12:48
PROVIDERS: ATTEND Urology
DX: N13.2 Hydronephrosis with renal and ureteral calculous obstruction (principal); Z90.5 Acquired absence of kidney; N19 Unspecified kidney failure; R31.9 Hematuria, unspecified; F41.9 Anxiety disorder, unspecified; D64.9 Anemia, unspecified; Z72.0 Tobacco use
CPT/HCPCS: 36415; 52310; 52356; 74019; 76000; 80048; C1769; C2617; J0696; J1170; J1580

== ENCOUNTER 2017-07-20 09:12 | Day surgery (SDC) | payer OTHER ==
[2017-07-19 07:19] VITALS: BMI 25.7
[~2017-07-20 09:12] MED LIST: Iohexol 240 (50 ml) ONE; Lidocaine 2% Jelly (Uro-Jet) ONE
[2017-07-20 11:07] LABS: CALCIUM 9.2 mg/dl (8.6-10.4)
[2017-07-20] MEDS ORDERED: Sodium Chloride 0.9% 1,000 ML IV ONE (12:00)
[2017-07-20] MEDS ORDERED: Midazolam 2 MG/2 ML VIAL ONE (12:05)
[2017-07-20] MEDS ORDERED: Propofol 10 mg/ml Inj (20 ML) ONE (12:05)
[2017-07-20] MEDS ORDERED: ePHEDrine 50 mg/ml Inj ONE (12:47)
[2017-07-20] MEDS ORDERED: Ciprofloxacin 400mg/200ml D5W 400 MG/200 ML BAG IVPB STA (13:35)
[2017-07-20] MEDS ORDERED: Oxycodone/Acetaminophen 5/325 mg Tab PO PRN (13:35)
[2017-07-20] MEDS: HYDROmorphone 0.5 mg/0.5 ml ISec IVP PRN ×3 (14:00→14:40)
[2017-07-20] MEDS ORDERED: Sodium Chloride 0.9% 1,000 ML IV SCH (14:00)
[2017-07-20 15:30] VITALS: RESP 18; TEMP 97
[2017-07-20 16:51] VITALS: BP 140/81; PULSE 88; O2SAT 100
--- NOTE | 2017-07-20 17:46 | RAD ---
PROCEDURE: HISTORY: As Above COMPARISON: None TECHNIQUE: Total fluoroscopic time utilized during the procedure: 42.9 seconds. Total dose 1.00 mGy cm squared FINDINGS: Submitted images from the current procedure: 9 Please refer to the physician's notes performing the procedure. IMPRESSION: Less than 1 hour fluoroscopic time utilized during performance of the procedure
--- NOTE | 2017-07-20 17:48 | RAD ---
HISTORY: RT. RENAL CALCULI COMPARISON: 07/10/2017 FINDINGS: BOWEL: Stool retention.. No obstruction. No free air. BONES: Normal. OTHER FINDINGS: Bilateral nephrolithiasis -those on the right staghorn type right ureteral stent place IMPRESSION: Nephrolithiasis and right staghorn type in size is similar to 07/10/2017 appearance on the right. The left renal calculus or hyperdensity in stool not appreciated on the prior study this is estimated to be approximately 4 to 5 mm over the left kidney
--- NOTE | 2017-07-21 09:07 | OP ---
PROCEDURE DATE: 07/20/2017 UROLOGY OPERATIVE REPORT PREOPERATIVE DIAGNOSES: Gross hematuria, tremendous stone burden with renal failure, dialysis patient. POSTOPERATIVE DIAGNOSES: Gross hematuria, tremendous stone burden with renal failure, dialysis patient. PROCEDURE: Cystoscopy, removal of right double J-stent, right ureteroscopy, right renoscopy, right laser lithotripsy of stone, and insertion of right double-J stent. COMPLICATIONS: They were no complications. ESTIMATED BLOOD LOSS: Less than 25 mL. INDICATIONS: See the history and physical. This is a very pleasant gentleman, here for one of the series of treatment for his stones. He is not willing to and perhaps not even a great candidate for percutaneous nephrolithotomy or an ESWL therapy being that it is a solitary kidney. Although the kidney is not working well and is unsteady, he is on dialysis. He does produce urine, and therefore, he is not fluid restricted. We have discussed options including the nephrectomy. He had a left nephrectomy. This had followed previous treatments. He came to us already as a predialysis patient, and at that time, we had discussed the options. He ended up going under percutaneous treatment. I have been following the patient for quite some time. I discussed and I recommended actually going to get second opinion. After discussing the various options with the patient, he is now here for the above treatment. I told him we are going to try our best and this is going to take several times, may be up to 10 times. But since lately, he has been much more cooperative, and we are working as best as we can. . I do want to mention very quickly that no other abnormalities were noted. The patient has tremendous stone burden but it is getting small and small. DESCRIPTION OF PROCEDURE: After obtaining informed consent, the patient was placed on the operating table. Routine monitor was placed. Time-out was called to confirm the patient and positioning. The patient was given antibiotic prophylaxis. We introduced the the urethra, identified the old stent put a wire into the kidney without difficulty. We put a double lumen. We dissected the wire into it. We put the flexible ureteroscope. Multiple pictures were taken. We identified the stone and we just begin lasering fast and quickly as we can and very efficiently as best as possible, and we keep working till we can visualize the stone as well because it starts getting a little cloudy. As mentioned, we have given the patient antibiotics, etc., but I do not think, there will be any problem. The blood loss is minimal. The patient still has a tremendous stone burden but really impact upon the stone. The patient at this point The patient tolerated the procedure without complications. Celso Ferro MD
--- NOTE | 2017-07-21 09:24 | HP ---
UROLOGY ADMISSION HISTORY AND PHYSICAL REASON FOR ADMISSION: Treatment of kidney stones. See my previous notes. The patient has been here very recently. We treating his stone, he has tremendous stone burden, and he is here for cystourethroscopy, laser lithotripsy, refused percutaneous nephrostolithotomy, and I do not recommend a . He has a solitary kidney. I have discussed with him options at length, patient is here now for the above. PAST MEDICAL AND SURGICAL HISTORY: No other changes. The patient is a dialysis patient. . MEDICATIONS: All listed in chart. No real changes. He actually says he has been doing much better since he has been getting treated. PHYSICAL EXAMINATION: GENERAL: A well-nourished male, in no apparent distress. VITAL SIGNS: Within normal limits. DIAGNOSES: Urolithiasis, hematuria, hydronephrosis, solitary kidney, renal failure, on dialysis. The patient is a very pleasant gentleman getting ____ well. As the discussing options today, he is here for a cystourethroscopy, laser lithotripsy, and then further plans, we will follow. We have discussed with patient risks, benefits and alternatives. We discussed second opinions. We discussed percutaneous nephrostolithotomy discussed as well. After all of that has been discussed, plan is as follows. The patient is going to undergo procedure today and then further plans will follow. I have explained to the patient this is one of many treatments but we are making progress objective information I noted. Celso Ferro [id number]
== END 2017-07-20 16:52 | disposition home or self-care (01) ==
LOC: C.SDS 09:12
PROVIDERS: ATTEND Urology
DX: N20.2 Calculus of kidney with calculus of ureter (principal); R31.0 Gross hematuria; Z99.2 Dependence on renal dialysis; Z90.5 Acquired absence of kidney
CPT/HCPCS: 36415; 52356; 74018; 80048; J0744; J1170; J7040

== ENCOUNTER 2017-08-24 10:13 | Day surgery (SDC) | payer OTHER ==
[2017-07-19 07:19] VITALS: BMI 25.7
[2017-08-24 11:06] LABS: EOS # 0.1 K/uL (0.0-0.7); EOS % 2.1 % (0.0-4.0); HEMOGLOBIN 13.3 g/dL (12.0-18.0); LYMPH # 1.5 K/uL (1.0-4.3); MEAN CELL VOLUME 97.8 fL (80.0-94.0); MEAN CORPUSCULAR HEMOGLOBIN 33.1 pg (27.0-31.0); MEAN CORPUSCULAR HGB CONC 33.8 g/dL (33.0-37.0); MEAN PLATELET VOLUME 7.2 fL (7.2-11.7); MONO # 0.4 K/uL (0.0-0.8); MONO % 8.4 % (0.0-10.0); NEUT # 2.3 K/uL (1.8-7.0); NEUT % 54.5 % (50.0-75.0); NRBC % 0.1 % (0.0-2.0); RBC 4.01 Mil/uL (4.40-5.90); RED CELL DISTRIBUTION WIDTH 14.6 % (11.5-14.5); WHITE BLOOD COUNT 4.3 K/uL (4.8-10.8)
[2017-08-24 11:13] LABS: CALCIUM 9.4 mg/dl (8.6-10.4)
[2017-08-24 11:14] LABS: PROTHROMBIN TIME 11.2 SECONDS (9.7-12.2)
[2017-08-24] MEDS ORDERED: cefTRIAXone 1 gm 1 GM/100 ML BAG IVPB ONE (14:54)
[2017-08-24] MEDS ORDERED: Lidocaine 2% Jelly (Uro-Jet) ONE (14:55)
[2017-08-24] MEDS ORDERED: Midazolam 2 MG/2 ML VIAL ONE ×2 (15:06→15:39)
[2017-08-24] MEDS ORDERED: Propofol 10 mg/ml Inj (20 ML) ONE ×2 (15:06→15:41)
[2017-08-24] MEDS ORDERED: Ciprofloxacin 400mg/200ml D5W 400 MG/200 ML BAG IVPB STA (15:20)
[2017-08-24] MEDS ORDERED: Oxycodone/Acetaminophen 5/325 mg Tab PO PRN (15:22)
[2017-08-24] MEDS ORDERED: Morphine 4 MG/ML VIAL ONE (15:45)
[2017-08-24] MEDS: HYDROmorphone 0.5 mg/0.5 ml ISec IVP PRN ×3 (16:56→17:23)
[2017-08-24 18:07] VITALS: BP 123/72; PULSE 67; RESP 20; TEMP 98.2; O2SAT 100
--- NOTE | 2017-08-25 09:28 | RAD ---
PROCEDURE: Intraoperative Fluoroscopy. HISTORY: RT KIDNEY STONE FINDINGS: Fluoroscopic assistance was provided 67.4 seconds fluoroscopy time radiation dose = 0.22981 mGy-cm Please refer to the operative report from ALEXANDER Dolan DR, MD.
--- NOTE | 2017-08-25 09:31 | RAD ---
HISTORY: RT KIDNEY STONE COMPARISON: Comparison made with prior study dated 08/24/2017. FINDINGS: BOWEL: BOWEL GAS PATTERN. BONES: Normal. OTHER FINDINGS: In situ right ureteral stent. Staghorn calculi multiple calculi 1 of which appears to represent a staghorn calculus seen overlying the right renal silhouette. Note that 1 or 2 the aforementioned right renal calculi appears to have diminished in size slightly. IMPRESSION: Nephrolithiasis with in situ right ureteral stent.
--- NOTE | 2017-08-25 09:40 | RAD ---
HISTORY: RT KIDNEY STONE COMPARISON: No prior. FINDINGS: BOWEL: Normal. No obstruction. No free air. BONES: Normal. OTHER FINDINGS: In situ right ureteral stent Multiple calculi again seen overlying the right renal silhouette IMPRESSION: In situ right ureteral stent. Multiple right renal calculi again noted
--- NOTE | 2017-09-25 08:37 | HP ---
REASON OF ADMISSION: For treatment of kidney stones. HISTORY OF PRESENT ILLNESS: Mr. Frank is a very pleasant gentleman, see the many previously dictated notes, who is here now for treatment of his stone on the right side. He has a tremendously large stone burden. He is here now for a cystoscopy, ureteroscopy, and laser lithotripsy. PAST MEDICAL AND SURGICAL HISTORY: As follows. No other major changes. He had a nephrectomy. He has renal failure. He is on dialysis. He does produce urine now. He is here for further treatment of stones, but see the plans listed below. MEDICATIONS: See chart. ALLERGIES: NONE. PHYSICAL EXAMINATION: GENERAL: In no apparent distress. VITAL SIGNS: Within normal limits. NECK: No cervical or axillary lymphadenopathy. LUNGS: Clear. ABDOMEN: Overall, soft and nontender. No flank mass appreciated. GENITOURINARY: He has a normal male phallus without discharge. No testicular masses. RECTAL: Deferred now in 12-system but basically 10 to 20 gm prostate, soft and smooth. LABORATORY DATA: See chart. DIAGNOSES: Renal failure, urolithiases, hematuria, intermittent flank pain, tremendous stone burden with his stone. Statu post left nephrectomy. PLAN: At this time, also we discussed the options at length with the patient. He happens to have had a percutaneous nephrostolithotomy, and when we first saw, he was just about the beyond dialysis. At the time we met him, both parenchyma of his kidneys were extremely weak. Basically, he is a very poor candidate, medically and surgically. See those notes. Subsequently, he become a renal failure patient, actually a permanent dialysis patient. I believe, even before we have started, he had a couple of rounds of dialysis and hope for the kidney improvement. Basically, poor parenchyma back to original films. Since that time, he had a percutaneous nephrostolithotomy. He subsequently ended up with a nephrectomy. All this was sent in the previous note, and I have discussed with the patient at length many times. But after his situation, he has had done multiple procedures for this tremendous stone. He does not want a percutaneous nephrostolithotomy although that was my recommendation, although I understand his concerns for bleeding. I think this is a different setting. This is my special recommendation. I also recommended that he consider doing a percutaneous nephrostolithotomy at another institution with academic and multidisciplinary approach. However for various reasons including insurance and other factors, he has decided not to do this as well. So today he is being brought for cystoscopy, ureteroscopy with lithotripsy. This is one in the series. We are trying to make some progress. Again, it is just a tremendous stone burden. I then asked having the patient returned back for followup. The stone was challenging. So at this point, the plan is as follows. We will plan for a cystoscopy, ureterotomy, laser lithotripsy, and further plans will follow. The patient will be given antibiotic prophylaxis. Celso Ferro MD
--- NOTE | 2017-09-25 09:05 | OP ---
PROCEDURE DATE: 08/24/2017 UROLOGY OPERATIVE REPORT PREOPERATIVE DIAGNOSES: Urolithiasis, hematuria, hydronephroses, flank pain, renal failure, tremendous stone burden. POSTOPERATIVE DIAGNOSES: Urolithiasis, hematuria, hydronephroses, flank pain, renal failure, tremendous stone burden. PROCEDURE: Cystoscopy, removal of right double-J stent, right ureteroscopy, right renoscopy, right laser lithotripsy of stone, right retrograde pyelogram and insertion of right double J-stent. COMPLICATIONS: There were no complications. BLOOD LOSS: Less than 10 mL. DRAINS: Double J-stent. FINDINGS: 1. Normal anterior urethra. 2. No strictures on reviewing it, and it was moderately visually occlusive about 2 to 3 cm. 3. The stent is in good location and actually not overly encrusted. 4. There is still a tremendous stone burden, but we worked diligently. It you look closely, on imaging, looks like we are making some progress. At the termination of the procedure, the patient still has stone disease. INDICATION: See the history and physical for further details. Very pleasant but initially extremely noncompliant, of late has been more compliant. He is now here for the above care procedure. I discussed with the patient my recommendations for percutaneous nephrostolithotomy to consider second opinions. All this has been discussed at length with the patient. After discussing these options, the patient is here now for the above procedure. DESCRIPTION OF PROCEDURE: After discussing options with the patient, the patient was placed on the table. Routine monitors were placed. Time-out was called. We confirmed the patient and procedure. Procedure continued in the following fashion. We introduced the cystoscope via the urethra. The anterior urethra was normal. No strictures, but on reviewing it, moderately visually occlusive by 2 cm in length. Ureteral orifices were identified. All stents were removed. The wire was passed up to the kidney. We dilated the ureter by putting second wire and then put the first ureteroscope straight up to the kidney. We confirmed our positioning. Now we began the laser lithotripsy. We identified the stone. We worked diligently carefully making as much progress on the stone as possible. The entire procedure was done with fluoroscopic imaging and also with the camera with the help of my coding assistant. We worked as long as we can until we can see clearly. When it becomes a little bit cloudy and concern for sepsis, bleeding, and infection, we terminated the procedure. Basically, we made some good in the stone. At this point, we put a double J stenting. The patient tolerated the procedure without complications. ADDENDUM: I will consider with the patient a few more trials but my real recommendation is that we get the patient back very quickly for this, and he is not making progress quickly enough, then we really encouraged the patient to have percutaneous nephrolithotomy. I have discussed that there are different techniques and different variables and would not expect that he will have the bleeding that he had previously. At the time that he has had previous bleeding, he was in a much different medical stage. He was not yet on dialysis but he was already on renal failure, there are many other factors at this point, and his own compliance level was different. He has been much more attentive to his care. So we will discuss all these options with the patient although I hear his concerns, and for now, he does produce some kind of urine output although he is a dialysis patient. Let us give him some freedom, and we are hoping to avoid any further nephrectomies. Celso Ferro MD
== END 2017-08-24 18:49 | disposition home or self-care (01) ==
LOC: C.SDS 10:13
PROVIDERS: ATTEND Urology
DX: N20.0 Calculus of kidney (principal); R31.9 Hematuria, unspecified; N18.6 End stage renal disease; Z99.2 Dependence on renal dialysis
CPT/HCPCS: 36415; 52332; 52356; 74018; 80048; 85025; 85610; 85730; C1758; C1769; C2617; J0696; J0744; J1170

== ENCOUNTER 2017-10-28 12:09 | Inpatient (IN) | payer OTHER ==
[2017-10-28 12:09] VITALS: BMI 25.7
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
[2017-10-28 13:35] LABS: BASO % 0.9 % (0.0-2.0); EOS # 0.1 K/uL (0.0-0.7); EOS % 1.4 % (0.0-4.0); HEMOGLOBIN 12.2 g/dL (12.0-18.0); LYMPH # 1.3 K/uL (1.0-4.3); LYMPH % 22.5 % (20.0-40.0); MEAN CELL VOLUME 95.5 fL (80.0-94.0); MEAN CORPUSCULAR HEMOGLOBIN 32.9 pg (27.0-31.0); MEAN CORPUSCULAR HGB CONC 34.5 g/dL (33.0-37.0); MEAN PLATELET VOLUME 7.2 fL (7.2-11.7); MONO # 0.5 K/uL (0.0-0.8); MONO % 8.6 % (0.0-10.0); NEUT # 3.7 K/uL (1.8-7.0); NEUT % 66.6 % (50.0-75.0); RBC 3.71 Mil/uL (4.40-5.90); RED CELL DISTRIBUTION WIDTH 13.8 % (11.5-14.5); WHITE BLOOD COUNT 5.6 K/uL (4.8-10.8)
[2017-10-28] MEDS ORDERED: Morphine 4 MG/ML VIAL ONE (13:35)
[2017-10-28 13:43] LABS: URINE BACTERIA OCC (<OCC); URINE BILIRUBIN NEGATIVE (NEGATIVE); URINE BLOOD 2+ (NEGATIVE); URINE CLARITY Turbid (Clear); URINE COLOR Amber (YELLOW); URINE GLUCOSE (UA) NORMAL (Normal); URINE LEUKOCYTE ESTERASE 3+ Leu/uL (Negative); URINE PROTEIN 2+ mg/dL (NEGATIVE); URINE UROBILINOGEN NORMAL mg/dL (0.2-1.0); WBC CLUMPS FEW /hpf
[2017-10-28 14:00] LABS: ALBUMIN 3.8 g/dL (3.5-5.0); CALCIUM 9.7 mg/dl (8.6-10.4)
--- NOTE | 2017-10-28 14:55 | CT ---
PROCEDURE: CT Abdomen and Pelvis without intravenous contrast HISTORY: Abdominal pain COMPARISON: 06/13/2017 TECHNIQUE: Multiple contiguous axial images were performed through the abdomen and pelvis without the use of intravenous contrast. Subsequently, sagittal and coronal reformatted images were obtained. Radiation dose: Total exam DLP = 372 mGy-cm. This CT exam was performed using one or more of the following dose reduction techniques: Automated exposure control, adjustment of the mA and/or kV according to patient size, and/or use of iterative reconstruction technique. FINDINGS: LOWER THORAX: Scattered areas of atelectasis at the lung bases. More focal nodular consolidative changes at the left lung base. Coronary and or valvular calcifications and or stents at the level of the heart. Clinical correlation. LIVER: Unremarkable. No gross lesion or ductal dilatation. GALLBLADDER AND BILE DUCTS: Unremarkable. PANCREAS: Limited evaluation without contrast. SPLEEN: Unremarkable. ADRENALS: Unremarkable. No mass. KIDNEYS AND URETERS: Right nephro ureteral stent in place. Large staghorn calculi noted throughout the right kidney with associated prominent distention of the renal calices with associated prominent cortical parenchymal thinning. Additional renal cysts can't be excluded. Innumerable large calcified foci/calculi/calcified lesions throughout the kidney for example in the midpole measuring up to 2.4 centimeters, in the posterior aspect of the mid to lower pole measuring 3.6 centimeters, in the lower renal pelvis measuring 3.5 centimeters. Some of the prominently distended calices demonstrate peripheral calcifications. Left kidney not visualized, likely resected. Clinical correlation. VASCULATURE: Unremarkable. No aortic aneurysm. BOWEL: Evaluation of the bowel limited without contrast. Unremarkable. No obstruction. No gross mural thickening. Moderate fecal retention in the colon. Thickening or underdistention of the stomach. APPENDIX: 4 millimeter echogenic foci at the base of the appendix which may represent a small appendicolith. No gross thickening or adjacent periappendiceal fat stranding. Clinical correlation. This is best seen on series 3, image 13. PERITONEUM: Unremarkable. No free fluid. No free air. LYMPH NODES: Few shotty inguinal and para-aortic lymph nodes. Few shotty mesenteric lymph nodes. Evaluation limited without contrast. BLADDER: Unremarkable. REPRODUCTIVE: Unremarkable. BONES: Degenerative changes. OTHER FINDINGS: Atherosclerotic calcification and plaque within the aorta. IMPRESSION: 1. Right nephro ureteral stent in place. Large staghorn calculi noted throughout the right kidney with associated prominent distention of the renal calices with associated prominent cortical parenchymal thinning. Additional renal cysts can't be excluded. Innumerable large calcified foci/calculi/calcified lesions throughout the kidney for example in the midpole measuring up to 2.4 centimeters, in the posterior aspect of the mid to lower pole measuring 3.6 centimeters, in the lower renal pelvis measuring 3.5 centimeters. Some of the prominently distended calices demonstrate peripheral calcifications. Left kidney not visualized, likely resected. Clinical correlation. 2. 4 millimeter echogenic foci at the base of the appendix which may represent a small appendicolith. No gross thickening or adjacent periappendiceal fat stranding. Clinical correlation. This is best seen on series 3, image 13. 3. Scattered areas of atelectasis at the lung bases. More focal nodular consolidative changes at the left lung base. 4. Coronary and or valvular calcifications and or stents at the level of the heart. Clinical correlation.
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
[2017-10-28 20:13] VITALS: RESP 20
[2017-10-28] MEDS: Oxycodone/Acetaminophen 5/325 mg Tab PO PRN (20:16)
[2017-10-29] MEDS: Oxycodone/Acetaminophen 5/325 mg Tab PO PRN ×4 (05:50→19:11)
[2017-10-29 06:40] LABS: BARBITURATES, UR NEGATIVE (NEGATIVE); BENZODIAZEPINES, UR NEGATIVE (NEGATIVE); PHENCYCLIDINE, UR NEGATIVE (NEGATIVE)
[2017-10-29 06:42] LABS: OPIATES, UR POSITIVE (NEGATIVE)
[2017-10-29] MEDS: Pantoprazole 20 mg EC Tab PO SCH (09:46)
--- NOTE | 2017-10-29 13:13 | CP.PCM.PN ---
Subjective - Date & Time of Evaluation Date of Evaluation: 10/29/17 Time of Evaluation: 13:07 - Subjective Subjective: 47 year old hisp male w solitary left kidney w staghorn calculi and stent. pt is afibrile wbc is normal and laying comfortably in bed urine C&s pending A ERF many leucocytes in urine? infection Suggest NO gu intervention on this admission refer back to [facility] on discharge treat any + c+S w sensitive antibiotics Objective - Vital Signs/Intake and Output Vital Signs (last 24 hours): Temp Pulse Resp BP Pulse Ox 99.2 F 74 20 122/69 96 10/29/17 08:00 10/29/17 08:00 10/29/17 08:00 10/29/17 08:00 10/29/17 00:00 Intake and Output: 10/29/17 10/29/17 06:59 18:59 Intake Total 300 Balance 300 - Medications Medications: Current Medications Alprazolam (Xanax) 0.5 mg PO Q12H PRN PRN Reason: Anxiety Last Admin: 10/28/17 21:42 Dose: 0.5 mg Ferrous Sulfate (Feosol) 325 mg PO BID [facility] Last Admin: 10/29/17 09:40 Dose: 325 mg Heparin Sodium (Porcine) (Heparin) 5,000 units SC Q8 [facility] Last Admin: 10/29/17 05:45 Dose: 5,000 units Ceftriaxone Sodium 1 gm/ (Sodium Chloride) 100 mls @ 100 mls/hr IVPB DAILY [facility] PRN Reason: Protocol Last Admin: 10/29/17 09:41 Dose: 100 mls/hr Ondansetron HCl (Zofran Tab) 4 mg PO Q4 PRN PRN Reason: Nausea/Vomiting Oxycodone/Acetaminophen (Percocet 5/325 Mg Tab) 2 tab PO Q4H PRN PRN Reason: prn for pain Stop: 10/31/17 19:06 Last Admin: 10/29/17 10:18 Dose: 2 tab Pantoprazole Sodium (Protonix Ec Tab) 20 mg PO DAILY [facility] Last Admin: 10/29/17 09:46 Dose: 20 mg Sevelamer Carbonate (Renvela) 1,600 mg PO TID [facility] Last Admin: 10/29/17 09:44 Dose: 1,600 mg Tamsulosin HCl (Flomax) 0.4 mg PO DAILY [facility] Last Admin: 10/29/17 09:40 Dose: 0.4 mg - Labs Labs: 10/28/17 13:29 10/28/17 13:29
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
--- NOTE | 2017-10-30 01:40 | CON ---
DATE: 10/29/2017 TIME: Approximately 01:15 p.m. CHIEF COMPLAINT: Left flank pain. HISTORY OF PRESENT ILLNESS: The patient was admitted to the hospital primarily because he has many wbc's in the urine. He is afebrile. He is complaining of vague pain in the right kidney, which is consistent with the fact that he has a stent in place. He has no fever. WBC is normal and on examination, he is lying comfortably in bed. The patient has end-stage renal failure. He does have significant leucocytosis in the urine and the urine culture is positive. The patient has a history of being under the care of Dr. Celso Ferro who is the doctor who placed the stent in his kidney. PHYSICAL EXAMINATION: VITAL SIGNS: Within normal limits. HEAD, EYES, NOSE AND THROAT: Within normal limits. NECK: Supple. There are no bruits, nodes or masses. CHEST: Clear bilaterally. There are no rales or rhonchi. HEART: Normal sinus rhythm. : There is no palpable CVA tenderness or renal enlargement. Abdomen is soft, nontender without masses, guarding or rebound. Testicle, epididymis and cord are normal. The patient declined rectal examination. EXTREMITIES: Normal. the patient, taking the detailed history, we reviewed the CAT scan of the abdomen and pelvis which shows a right ureteral stent in place and a large staghorn calculi with evidence of longstanding renal obstruction, hydronephrosis and loss of parenchyma. We have also reviewed the lab data which shows that the patient has a normal white count and the vital signs did show he is afebrile. Urinalysis does show significant wbc's in the urine. IMPRESSION: Right staghorn calculi, possible infection, wbc's may be due to stone and stent being in place. PLAN: Suggest the following, I would suggest awaiting the urine culture. If the urine culture is negative, the patient may be discharged without any further antibiotics. If the urine culture is positive, the patient should be discharged on sensitive antibiotics. Since he has been dialyzed for outpatient and followup with Dr. Celso Ferro after discharge. I have discussed his care with Dr. Celso Ferro. Lamonte Adam MD [facility] # [id number]
[2017-10-30] MEDS: Oxycodone/Acetaminophen 5/325 mg Tab PO PRN ×5 (05:36→21:35)
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
[2017-10-30] MEDS: Pantoprazole 20 mg EC Tab PO SCH (11:22)
--- NOTE | 2017-10-30 11:32 | CP.PCM.PN ---
Subjective - Date & Time of Evaluation Date of Evaluation: 10/30/17 Time of Evaluation: 11:30 - Subjective Subjective: events noted admitted with right CVAT, RLQ pains no n, v, diarrhea,f, chills UC+S neg- on IV ABs CT showed same staghorn kidney; left kidney was removed Objective - Vital Signs/Intake and Output Vital Signs (last 24 hours): Temp Pulse Resp BP Pulse Ox 98.2 F 63 20 108/56 L 98 10/30/17 08:00 10/30/17 08:00 10/30/17 08:00 10/30/17 08:00 10/30/17 08:00 Intake and Output: 10/30/17 10/30/17 06:59 18:59 Intake Total 300 0 Output Total 3 Balance 297 0 - Medications Medications: Current Medications Alprazolam (Xanax) 0.5 mg PO Q12H PRN PRN Reason: Anxiety Last Admin: 10/29/17 21:47 Dose: 0.5 mg Ferrous Sulfate (Feosol) 325 mg PO BID [facility] Last Admin: 10/30/17 09:49 Dose: 325 mg Heparin Sodium (Porcine) (Heparin) 5,000 units SC Q8 [facility] Last Admin: 10/30/17 05:35 Dose: 5,000 units Ceftriaxone Sodium 1 gm/ (Sodium Chloride) 100 mls @ 100 mls/hr IVPB DAILY [facility] PRN Reason: Protocol Last Admin: 10/30/17 10:08 Dose: 100 mls/hr Ondansetron HCl (Zofran Tab) 4 mg PO Q4 PRN PRN Reason: Nausea/Vomiting Oxycodone/Acetaminophen (Percocet 5/325 Mg Tab) 2 tab PO Q4H PRN PRN Reason: prn for pain Stop: 10/31/17 19:06 Last Admin: 10/30/17 10:07 Dose: 2 tab Pantoprazole Sodium (Protonix Ec Tab) 20 mg PO DAILY [facility] Last Admin: 10/30/17 11:22 Dose: 20 mg Sevelamer Carbonate (Renvela) 1,600 mg PO TID [facility] Last Admin: 10/30/17 09:48 Dose: 1,600 mg Tamsulosin HCl (Flomax) 0.4 mg PO DAILY [facility] Last Admin: 10/30/17 09:47 Dose: 0.4 mg - Labs Labs: 10/28/17 13:29 10/28/17 13:29 - Constitutional Appears: No Acute Distress, Chronically Ill - Head Exam Head Exam: ATRAUMATIC, NORMAL INSPECTION - Eye Exam Eye Exam: EOMI, Normal appearance - Neck Exam Neck Exam: Normal Inspection. absent: Tenderness - Respiratory Exam Respiratory Exam: Clear to Ausculation Bilateral, NORMAL BREATHING PATTERN - Cardiovascular Exam Cardiovascular Exam: REGULAR RHYTHM, +S1 - GI/Abdominal Exam GI & Abdominal Exam: Soft, Tenderness - Extremities Exam Extremities Exam: Normal Inspection. absent: Tenderness - Neurological Exam Neurological Exam: Alert, CN II-XII Intact - Skin Skin Exam: Dry, Warm Assessment and Plan (1) ESRD on dialysis Status: Acute (2) History of renal stent Status: Acute (3) Nephrolithiasis Status: Acute (4) Xanthogranulomatous pyelonephritis Status: Acute (5) Hepatitis C antibody positive in blood Status: Chronic - Assessment and Plan (Free Text) Plan: treat pain on IV ABs dialysis again in AM ; TTS await follow up
[2017-10-30] MEDS ORDERED: Trimethobenzamide 200 mg/2 mL Inj IM PRN (18:53)
[2017-10-30] MEDS: Apap-Butalbital-Caffeine 325-50-40mg Tab PO PRN (21:43)
[2017-10-31] MEDS: Oxycodone/Acetaminophen 5/325 mg Tab PO PRN ×3 (01:41→13:18)
[2017-10-31] MEDS: Apap-Butalbital-Caffeine 325-50-40mg Tab PO PRN ×3 (05:50→22:26)
--- NOTE | 2017-10-31 08:34 | CP.PCM.PN ---
Subjective - Date & Time of Evaluation Date of Evaluation: 10/30/17 Time of Evaluation: 19:00 - Subjective Subjective: Pt seen and examined co back pain, on HD no n, v, diarrhea,f, chills UC+S neg- on IV ABs CT showed same staghorn kidney; left kidney was removed Objective - Vital Signs/Intake and Output Vital Signs (last 24 hours): Temp Pulse Resp BP Pulse Ox 98.1 F 66 20 109/60 99 10/31/17 08:11 10/31/17 08:11 10/31/17 08:11 10/31/17 08:11 10/31/17 08:11 Intake and Output: 10/31/17 10/31/17 06:59 18:59 Intake Total 240 Balance 240 - Medications Medications: Current Medications Acetaminophen/Butalbital/Caffeine (Fioricet) 1 tab PO Q8 PRN PRN Reason: Headache Last Admin: 10/31/17 05:50 Dose: 1 tab Alprazolam (Xanax) 0.5 mg PO Q12H PRN PRN Reason: Anxiety Last Admin: 10/30/17 21:43 Dose: 0.5 mg Ferrous Sulfate (Feosol) 325 mg PO BID [facility] [place] Last Admin: 10/30/17 17:37 Dose: 325 mg Heparin Sodium (Porcine) (Heparin) 5,000 units SC Q8 [facility] Last Admin: 10/31/17 05:51 Dose: 5,000 units Ceftriaxone Sodium 1 gm/ (Sodium Chloride) 100 mls @ 100 mls/hr IVPB DAILY [facility] PRN Reason: Protocol Last Admin: 10/30/17 10:08 Dose: 100 mls/hr Ondansetron HCl (Zofran Tab) 4 mg PO Q4 PRN PRN Reason: Nausea/Vomiting Last Admin: 10/30/17 18:10 Dose: 4 mg Oxycodone/Acetaminophen (Percocet 5/325 Mg Tab) 2 tab PO Q4H PRN PRN Reason: prn for pain Stop: 10/31/17 19:06 Last Admin: 10/31/17 01:41 Dose: 2 tab Pantoprazole Sodium (Protonix Ec Tab) 20 mg PO DAILY [facility] [place] Last Admin: 10/30/17 11:22 Dose: 20 mg Sevelamer Carbonate (Renvela) 1,600 mg PO TID [facility] [place] Last Admin: 10/30/17 17:37 Dose: 1,600 mg Tamsulosin HCl (Flomax) 0.4 mg PO DAILY [facility] Last Admin: 10/30/17 09:47 Dose: 0.4 mg Trimethobenzamide HCl (Tigan) 200 mg IM Q6 PRN PRN Reason: Nausea/Vomiting Last Admin: 10/30/17 21:47 Dose: 200 mg - Labs Labs: 10/28/17 13:29 10/28/17 13:29 - Constitutional Appears: No Acute Distress - Head Exam Head Exam: ATRAUMATIC, NORMAL INSPECTION, NORMOCEPHALIC - Eye Exam Eye Exam: EOMI, Normal appearance, PERRL Pupil Exam: NORMAL ACCOMODATION, PERRL - Respiratory Exam Respiratory Exam: Decreased Breath Sounds - Cardiovascular Exam Cardiovascular Exam: REGULAR RHYTHM, +S1, +S2. absent: Murmur - GI/Abdominal Exam GI & Abdominal Exam: Soft, Normal Bowel Sounds. absent: Tenderness - Rectal Exam Rectal Exam: Deferred Assessment and Plan (1) Nephrolithiasis Status: Acute (2) ESRD on dialysis Status: Acute (3) History of renal stent Status: Acute (4) UTI (urinary tract infection) Status: Acute (5) CLARISSA (acute kidney injury) Status: Acute (6) Hypertension Status: Acute (7) Low back pain Status: Acute
[2017-10-31] MEDS: Pantoprazole 20 mg EC Tab PO SCH (09:37)
--- NOTE | 2017-10-31 10:47 | CP.PCM.PN ---
Subjective - Date & Time of Evaluation Date of Evaluation: 10/31/17 Time of Evaluation: 10:42 - Subjective Subjective: seen and examined notes reviewed Still w/ severe rt flank pain denies any cp/sob/dizziness/n/v/d/rash/fevers/chills/headache/rash Objective - Vital Signs/Intake and Output Vital Signs (last 24 hours): Temp Pulse Resp BP Pulse Ox 98.1 F 66 20 109/60 99 10/31/17 08:11 10/31/17 08:11 10/31/17 08:11 10/31/17 08:11 10/31/17 08:11 Intake and Output: 10/31/17 10/31/17 06:59 18:59 Intake Total 240 Balance 240 - Medications Medications: Current Medications Acetaminophen/Butalbital/Caffeine (Fioricet) 1 tab PO Q8 PRN PRN Reason: Headache Last Admin: 10/31/17 05:50 Dose: 1 tab Alprazolam (Xanax) 0.5 mg PO Q12H PRN PRN Reason: Anxiety Last Admin: 10/30/17 21:43 Dose: 0.5 mg Ferrous Sulfate (Feosol) 325 mg PO BID [facility] Last Admin: 10/31/17 09:37 Dose: 325 mg Ceftriaxone Sodium 1 gm/ (Sodium Chloride) 100 mls @ 100 mls/hr IVPB DAILY [facility] PRN Reason: Protocol Last Admin: 10/31/17 09:37 Dose: 100 mls/hr Ondansetron HCl (Zofran Tab) 4 mg PO Q4 PRN PRN Reason: Nausea/Vomiting Last Admin: 10/30/17 18:10 Dose: 4 mg Oxycodone/Acetaminophen (Percocet 5/325 Mg Tab) 2 tab PO Q4H PRN PRN Reason: prn for pain Stop: 10/31/17 19:06 Last Admin: 10/31/17 08:56 Dose: 2 tab Pantoprazole Sodium (Protonix Ec Tab) 20 mg PO DAILY [facility] Last Admin: 10/31/17 09:37 Dose: 20 mg Sevelamer Carbonate (Renvela) 1,600 mg PO TID [facility] Last Admin: 10/31/17 09:37 Dose: 1,600 mg Tamsulosin HCl (Flomax) 0.4 mg PO DAILY [facility] Last Admin: 10/31/17 09:37 Dose: 0.4 mg Trimethobenzamide HCl (Tigan) 200 mg IM Q6 PRN PRN Reason: Nausea/Vomiting Last Admin: 10/30/17 21:47 Dose: 200 mg - Labs Labs: 10/28/17 13:29 10/28/17 13:29 - Constitutional Appears: Non-toxic, No Acute Distress - Head Exam Head Exam: NORMAL INSPECTION, NORMOCEPHALIC - Eye Exam Eye Exam: Normal appearance, PERRL - ENT Exam ENT Exam: Mucous Membranes Moist, Normal Exam - Neck Exam Neck Exam: Full ROM, Normal Inspection - Respiratory Exam Respiratory Exam: Clear to Ausculation Bilateral, NORMAL BREATHING PATTERN - Cardiovascular Exam Cardiovascular Exam: REGULAR RHYTHM, RRR - GI/Abdominal Exam GI & Abdominal Exam: Distended, Soft, Normal Bowel Sounds - Extremities Exam Extremities Exam: Full ROM, Normal Inspection - Back Exam Back Exam: NORMAL INSPECTION - Neurological Exam Neurological Exam: Alert, Awake - Psychiatric Exam Psychiatric exam: Normal Affect, Normal Mood - Skin Skin Exam: Dry, Intact Assessment and Plan (1) ESRD on dialysis Status: Acute (2) History of renal stent Status: Acute (3) Nephrolithiasis Status: Acute (4) Chronic pyelonephritis Status: Acute - Assessment and Plan (Free Text) Assessment: maintain hd tts bp acceptable urine cultures negative consider elective nephrectomy for recurrent pyelonephritis
--- NOTE | 2017-10-31 11:09 | CT ---
PROCEDURE: CT HEAD WITHOUT CONTRAST. HISTORY: headachew COMPARISON: None available. TECHNIQUE: Axial computed tomography images were obtained through the head/brain without intravenous contrast. Radiation dose: Total exam DLP = 953.23 mGy-cm. This CT exam was performed using one or more of the following dose reduction techniques: Automated exposure control, adjustment of the mA and/or kV according to patient size, and/or use of iterative reconstruction technique. FINDINGS: HEMORRHAGE: Very small focal parenchymal hemorrhage left parietal (series 4, image 49). Possible hypertensive hemorrhage. Please correlate. No other intracranial hemorrhage appreciated elsewhere. BRAIN: No mass effect or edema. No atrophy or chronic microvascular ischemic changes. VENTRICLES: Unremarkable. No hydrocephalus. CALVARIUM: Unremarkable. PARANASAL SINUSES: Unremarkable as visualized. No significant inflammatory changes. MASTOID AIR CELLS: Unremarkable as visualized. No inflammatory changes. OTHER FINDINGS: None. IMPRESSION: Small focal parenchymal hemorrhage left parietal lobe but common nonspecific. Please correlate for possible hypertensive bleed. Findings were discussed with the patient's nurse, Alphonso, by telephone, at 10:24 a.m. on 10/31/2017.
[2017-10-31 14:17] LABS: BASO % 0.6 % (0.0-2.0); EOS # 0.1 K/uL (0.0-0.7); HEMOGLOBIN 11.2 g/dL (12.0-18.0); LYMPH # 1.4 K/uL (1.0-4.3); LYMPH % 31.7 % (20.0-40.0); MEAN CELL VOLUME 95.2 fL (80.0-94.0); MEAN CORPUSCULAR HEMOGLOBIN 32.4 pg (27.0-31.0); MEAN PLATELET VOLUME 7.2 fL (7.2-11.7); MONO # 0.4 K/uL (0.0-0.8); MONO % 8.5 % (0.0-10.0); NEUT # 2.6 K/uL (1.8-7.0); NEUT % 57.2 % (50.0-75.0); RBC 3.47 Mil/uL (4.40-5.90); RED CELL DISTRIBUTION WIDTH 13.6 % (11.5-14.5); WHITE BLOOD COUNT 4.6 K/uL (4.8-10.8)
[2017-10-31 14:50] LABS: CALCIUM 9.1 mg/dl (8.6-10.4)
[2017-10-31] MEDS ORDERED: HYDROmorphone 1 mg/ml ISec IVP ONE (16:24)
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
[2017-10-31] MEDS ORDERED: Valproate 500 MG in Sodium Chloride 0.9% 100 ML IVPB ONE (17:23)
--- NOTE | 2017-10-31 17:57 | MRI ---
PROCEDURE: MRI BRAIN WITHOUT CONTRAST HISTORY: severe headache COMPARISON: Noncontrast head CT from 10/31/2017. TECHNIQUE: Multiplanar, multisequence MR images of the brain were obtained without intravenous contrast enhancement. FINDINGS: HEMORRHAGE: None DWI: No evidence of an acute or early subacute infarction. BRAIN PARENCHYMA: Reyes-white matter differentiation is preserved. There is no mass, mass effect or abnormal extra-axial fluid collection. There is no territorial infarction. The midline sagittal structures are normal. VENTRICLES: There is mild age advanced global parenchymal volume loss and proportionate enlargement of the ventricles and cortical sulci. CRANIUM: There is normal bone marrow signal pattern. ORBITS: Grossly unremarkable. PARANASAL SINUSES/MASTOIDS: Predominantly clear. VASCULAR SYSTEM: There are normal signal voids in the larger intracranial arteries. OTHER FINDINGS: None. IMPRESSION: No acute intracranial abnormality. Mild global parenchymal volume loss, advanced for the patient's age the
[2017-10-31 23:18] VITALS: BP 137/61; PULSE 67; TEMP 98.4; O2SAT 99
--- NOTE | 2017-11-01 00:21 | CP.PCM.PN ---
Subjective - Date & Time of Evaluation Date of Evaluation: 10/31/17 Time of Evaluation: 19:00 - Subjective Subjective: pt seen and examined, still have flank pain, intracerebral hemorrhage found and he is for MRI, also evalauted by neuro, still co headache and nause, UA are neg Objective - Vital Signs/Intake and Output Vital Signs (last 24 hours): Temp Pulse Resp BP Pulse Ox 98.4 F 67 20 137/61 99 10/31/17 23:15 10/31/17 23:15 10/31/17 23:15 10/31/17 23:15 10/31/17 23:15 Intake and Output: 10/31/17 11/01/17 18:59 06:59 Intake Total 640 Balance 640 - Medications Medications: Current Medications Acetaminophen/Butalbital/Caffeine (Fioricet) 1 tab PO Q8 PRN PRN Reason: Headache Last Admin: 10/31/17 22:26 Dose: 1 tab Alprazolam (Xanax) 0.5 mg PO Q12H PRN PRN Reason: Anxiety Last Admin: 10/31/17 22:26 Dose: 0.5 mg Ferrous Sulfate (Feosol) 325 mg PO BID [facility] Last Admin: 10/31/17 17:16 Dose: 325 mg Ceftriaxone Sodium 1 gm/ (Sodium Chloride) 100 mls @ 100 mls/hr IVPB DAILY [facility] PRN Reason: Protocol Last Admin: 10/31/17 09:37 Dose: 100 mls/hr Ondansetron HCl (Zofran Tab) 4 mg PO Q4 PRN PRN Reason: Nausea/Vomiting Last Admin: 10/30/17 18:10 Dose: 4 mg Pantoprazole Sodium (Protonix Ec Tab) 20 mg PO DAILY [facility] Last Admin: 10/31/17 09:37 Dose: 20 mg Sevelamer Carbonate (Renvela) 1,600 mg PO TID [facility] Last Admin: 10/31/17 17:27 Dose: 1,600 mg Tamsulosin HCl (Flomax) 0.4 mg PO DAILY [facility] Last Admin: 10/31/17 09:37 Dose: 0.4 mg Trimethobenzamide HCl (Tigan) 200 mg IM Q6 PRN PRN Reason: Nausea/Vomiting Last Admin: 10/30/17 21:47 Dose: 200 mg - Labs Labs: 10/31/17 14:04 10/31/17 14:04 - Constitutional Appears: No Acute Distress - Head Exam Head Exam: ATRAUMATIC, NORMAL INSPECTION, NORMOCEPHALIC - Eye Exam Eye Exam: EOMI, Normal appearance, PERRL Pupil Exam: NORMAL ACCOMODATION, PERRL - Respiratory Exam Respiratory Exam: Clear to Ausculation Bilateral, NORMAL BREATHING PATTERN - Cardiovascular Exam Cardiovascular Exam: REGULAR RHYTHM, +S1, +S2. absent: Murmur - GI/Abdominal Exam GI & Abdominal Exam: Soft, Normal Bowel Sounds. absent: Tenderness Assessment and Plan (1) Cerebral hemorrhage Status: Acute (2) ESRD on dialysis Status: Acute (3) Nephrolithiasis Status: Acute (4) UTI (urinary tract infection) Status: Acute (5) Flank pain Status: Acute (6) Nephrolithiasis Status: Acute
[2017-11-01] MEDS: Apap-Butalbital-Caffeine 325-50-40mg Tab PO PRN (06:26)
--- NOTE | 2017-11-01 07:58 | CP.PCM.PN ---
Subjective - Date & Time of Evaluation Date of Evaluation: 11/01/17 Time of Evaluation: 07:53 - Subjective Subjective: Mr. Frank was seen and examined at the bedside. He remains alert, oriented in all spheres. He states of experiencing severe headache last night which he was given medications and with relief. At present, he denies headache, lightheadedness, nausea, or vomiting. He is able to follow simple commands. Educated patient regarding blood pressure control, monitoring, and foods rich in salt, verbalizes understanding. MRI of the brain showed no acute intracranial abnormality. Mild global parenchymal volume loss, advanced for patient's age. There was no untoward events overnight. Objective - Vital Signs/Intake and Output Vital Signs (last 24 hours): Temp Pulse Resp BP Pulse Ox 98.4 F 67 20 137/61 99 10/31/17 23:15 10/31/17 23:15 10/31/17 23:15 10/31/17 23:15 10/31/17 23:15 Intake and Output: 11/01/17 11/01/17 06:59 18:59 Intake Total 360 Balance 360 - Medications Medications: Current Medications Acetaminophen/Butalbital/Caffeine (Fioricet) 1 tab PO Q8 PRN PRN Reason: Headache Last Admin: 11/01/17 06:26 Dose: 1 tab Alprazolam (Xanax) 0.5 mg PO Q12H PRN PRN Reason: Anxiety Last Admin: 10/31/17 22:26 Dose: 0.5 mg Ferrous Sulfate (Feosol) 325 mg PO BID [facility] Last Admin: 10/31/17 17:16 Dose: 325 mg Ceftriaxone Sodium 1 gm/ (Sodium Chloride) 100 mls @ 100 mls/hr IVPB DAILY [facility] PRN Reason: Protocol Last Admin: 10/31/17 09:37 Dose: 100 mls/hr Ondansetron HCl (Zofran Tab) 4 mg PO Q4 PRN PRN Reason: Nausea/Vomiting Last Admin: 10/30/17 18:10 Dose: 4 mg Pantoprazole Sodium (Protonix Ec Tab) 20 mg PO DAILY [facility] Last Admin: 10/31/17 09:37 Dose: 20 mg Sevelamer Carbonate (Renvela) 1,600 mg PO TID [facility] Last Admin: 10/31/17 17:27 Dose: 1,600 mg Tamsulosin HCl (Flomax) 0.4 mg PO DAILY [facility] Last Admin: 10/31/17 09:37 Dose: 0.4 mg Trimethobenzamide HCl (Tigan) 200 mg IM Q6 PRN PRN Reason: Nausea/Vomiting Last Admin: 10/30/17 21:47 Dose: 200 mg - Labs Labs: 10/31/17 14:04 10/31/17 14:04 - Constitutional Appears: No Acute Distress - Head Exam Head Exam: NORMAL INSPECTION - Eye Exam Pupil Exam: PERRL - Neurological Exam Neurological Exam: Alert, Awake, Oriented x3 Neuro motor strength exam: Left Upper Extremity: 5, Right Upper Extremity: 5, Left Lower Extremity: 5, Right Lower Extremity: 5 Additional comments: Alert, oriented, follows commands, sensation is intact. Assessment and Plan (1) ICH (intracerebral hemorrhage) Assessment & Plan: Case discussed with Dr. Dalal, continue all current medical regimen. Recommend strict blood pressure control with parameters of systolic BP , 159 and diastolic < 90 mm/hg, keep head of bed elevated at least [address] scan of the head if severe headache occurs. Status: Acute
[2017-11-01] MEDS: Pantoprazole 20 mg EC Tab PO SCH (10:05)
--- NOTE | 2017-11-01 13:02 | CP.PCM.PN ---
Subjective - Date & Time of Evaluation Date of Evaluation: 11/01/17 Time of Evaluation: 12:59 - Subjective Subjective: terminated HD yesterday after 30 minutes headache improved labs pending no chest pain no sob no nausea no cough no rash no fever no foot pain Objective - Vital Signs/Intake and Output Vital Signs (last 24 hours): Temp Pulse Resp BP Pulse Ox 98.4 F 67 20 137/61 99 10/31/17 23:15 10/31/17 23:15 10/31/17 23:15 10/31/17 23:15 10/31/17 23:15 Intake and Output: 11/01/17 11/01/17 06:59 18:59 Intake Total 360 Balance 360 - Medications Medications: Current Medications Acetaminophen/Butalbital/Caffeine (Fioricet) 1 tab PO Q8 PRN PRN Reason: Headache Last Admin: 11/01/17 06:26 Dose: 1 tab Alprazolam (Xanax) 0.5 mg PO Q12H PRN PRN Reason: Anxiety Last Admin: 11/01/17 10:33 Dose: 0.5 mg Ferrous Sulfate (Feosol) 325 mg PO BID [facility] Last Admin: 11/01/17 10:04 Dose: 325 mg Ceftriaxone Sodium 1 gm/ (Sodium Chloride) 100 mls @ 100 mls/hr IVPB DAILY [facility] PRN Reason: Protocol Last Admin: 11/01/17 10:05 Dose: 100 mls/hr Ondansetron HCl (Zofran Tab) 4 mg PO Q4 PRN PRN Reason: Nausea/Vomiting Last Admin: 10/30/17 18:10 Dose: 4 mg Pantoprazole Sodium (Protonix Ec Tab) 20 mg PO DAILY [facility] Last Admin: 11/01/17 10:05 Dose: 20 mg Sevelamer Carbonate (Renvela) 1,600 mg PO TID [facility] Last Admin: 11/01/17 10:05 Dose: 1,600 mg Tamsulosin HCl (Flomax) 0.4 mg PO DAILY [facility] Last Admin: 11/01/17 10:04 Dose: 0.4 mg Trimethobenzamide HCl (Tigan) 200 mg IM Q6 PRN PRN Reason: Nausea/Vomiting Last Admin: 10/30/17 21:47 Dose: 200 mg - Labs Labs: 10/31/17 14:04 10/31/17 14:04 - Constitutional Appears: Non-toxic, No Acute Distress - Head Exam Head Exam: ATRAUMATIC, NORMAL INSPECTION - Eye Exam Eye Exam: EOMI - ENT Exam ENT Exam: Mucous Membranes Moist - Neck Exam Neck Exam: Full ROM. absent: Lymphadenopathy - Respiratory Exam Respiratory Exam: Clear to Ausculation Bilateral. absent: Accessory Muscle Use - Cardiovascular Exam Cardiovascular Exam: REGULAR RHYTHM. absent: Rubs - GI/Abdominal Exam GI & Abdominal Exam: Soft. absent: Tenderness - Neurological Exam Neurological Exam: Alert, Awake Assessment and Plan - Assessment and Plan (Free Text) Assessment: esrd headaches, neuro follow up chronic pyelonephritis HD in am check labs today, especially K advised compliance with HD
--- NOTE | 2017-11-01 15:13 | CP.PCM.PN ---
Subjective - Date & Time of Evaluation Date of Evaluation: 11/01/17 Time of Evaluation: 11:00 - Subjective Subjective: Alert and orientedx3, dada sob or headaches. Objective - Vital Signs/Intake and Output Vital Signs (last 24 hours): Temp Pulse Resp BP Pulse Ox 98.4 F 67 20 137/61 99 10/31/17 23:15 10/31/17 23:15 10/31/17 23:15 10/31/17 23:15 10/31/17 23:15 Intake and Output: 11/01/17 11/01/17 06:59 18:59 Intake Total 360 Balance 360 - Labs Labs: 10/31/17 14:04 10/31/17 14:04 Assessment and Plan - Assessment and Plan (Free Text) Assessment: Patient is seen and examined thia am. Alert and orientedx3, denies anymore headache. Blood pressure is stable. MRI showed no acute changes. Cleared by neurologist for discharge home and follow up as outpatient. Discussed with DR Marc, plan to discharge home today. Advised to continue with HD in am as scheduled. Advised to follow up with DR Ferro in the office in 1 -2 weeks.
--- NOTE | 2017-11-01 23:37 | CP.PCM.DIS ---
Provider - Provider Date of Admission: 10/28/17 15:55 Attending physician: Mikel Marc MD Time Spent in preparation of Discharge (in minutes): 45 Diagnosis - Discharge Diagnosis (1) Cerebral hemorrhage Status: Acute (2) ESRD on dialysis Status: Acute (3) Nephrolithiasis Status: Acute (4) UTI (urinary tract infection) Status: Acute (5) Flank pain Status: Acute (6) Nephrolithiasis Status: Acute Hospital Course - Lab Results Lab Results: Micro Results 10/30/17 14:35 Urine,Clean Catch Urine Culture - Final No Growth (<1,000 CFU/ML) 10/29/17 06:19 Urine Urine Culture - Final <10,000 CFU/ML. MULTIPLE SPECIES. PROBABLE CONTAMINATION. Most Recent Lab Values WBC 4.6 K/uL (4.8-10.8) L 10/31/17 14:04 RBC 3.47 Mil/uL (4.40-5.90) L 10/31/17 14:04 Hgb 11.2 g/dL (12.0-18.0) L 10/31/17 14:04 Hct 33.0 % (35.0-51.0) L 10/31/17 14:04 MCV 95.2 fL (80.0-94.0) H 10/31/17 14:04 MCH 32.4 pg (27.0-31.0) H 10/31/17 14:04 MCHC 34.0 g/dL (33.0-37.0) 10/31/17 14:04 RDW 13.6 % (11.5-14.5) 10/31/17 14:04 Plt Count 186 K/uL (130-400) 10/31/17 14:04 MPV 7.2 fL (7.2-11.7) 10/31/17 14:04 Neut % (Auto) 57.2 % (50.0-75.0) 10/31/17 14:04 Lymph % (Auto) 31.7 % (20.0-40.0) 10/31/17 14:04 Bremer % (Auto) 8.5 % (0.0-10.0) 10/31/17 14:04 Eos % (Auto) 2.0 % (0.0-4.0) 10/31/17 14:04 Baso % (Auto) 0.6 % (0.0-2.0) 10/31/17 14:04 Neut # (Auto) 2.6 K/uL (1.8-7.0) 10/31/17 14:04 Lymph # (Auto) 1.4 K/uL (1.0-4.3) 10/31/17 14:04 Bremer # (Auto) 0.4 K/uL (0.0-0.8) 10/31/17 14:04 Eos # (Auto) 0.1 K/uL (0.0-0.7) 10/31/17 14:04 Baso # (Auto) 0.0 K/uL (0.0-0.2) 10/31/17 14:04 Sodium 141 mmol/L (132-148) 10/31/17 14:04 Potassium 4.9 mmol/L (3.6-5.2) 10/31/17 14:04 Chloride 94 mmol/L (98-107) L 10/31/17 14:04 Carbon Dioxide 32 mmol/L (22-30) H 10/31/17 14:04 Anion Gap 20 (10-20) 10/31/17 14:04 BUN 72 mg/dL (9-20) H 10/31/17 14:04 Creatinine 12.6 mg/dL (0.8-1.5) H* D 10/31/17 14:04 Est GFR ( Amer) 5 10/31/17 14:04 Est GFR (Non-Af Amer) 4 10/31/17 14:04 Random Glucose 100 mg/dL (75-110) 10/31/17 14:04 Calcium 9.1 mg/dl (8.6-10.4) 10/31/17 14:04 Total Bilirubin 1.2 mg/dL (0.2-1.3) 10/28/17 13:29 AST 19 U/L (17-59) 10/28/17 13:29 ALT 11 U/L (21-72) L D 10/28/17 13:29 Alkaline Phosphatase 97 U/L (38-126) 10/28/17 13:29 Total Protein 7.8 g/dL (6.3-8.3) 10/28/17 13:29 Albumin 3.8 g/dL (3.5-5.0) 10/28/17 13:29 Globulin 4.0 gm/dL (2.2-3.9) H 10/28/17 13:29 Albumin/Globulin Ratio 1.0 (1.0-2.1) 10/28/17 13:29 Lipase 38 U/L (23-300) 10/28/17 13:29 Urine Color Kenyatta (YELLOW) 10/28/17 13:29 Urine Clarity Turbid (Clear) 10/28/17 13:29 Urine pH 9.0 (5.0-8.0) 10/28/17 13:29 Ur Specific [place] 1.009 (1.003-1.030) 10/28/17 13:29 Urine Protein 2+ mg/dL (NEGATIVE) H 10/28/17 13:29 Urine Glucose (UA) Normal mg/dL (Normal) 10/28/17 13:29 Urine Ketones Negative mg/dL (NEGATIVE) 10/28/17 13:29 Urine Blood 2+ (NEGATIVE) H 10/28/17 13:29 Urine Nitrate Negative (NEGATIVE) 10/28/17 13:29 Urine Bilirubin Negative (NEGATIVE) 10/28/17 13:29 Urine Urobilinogen Normal mg/dL (0.2-1.0) 10/28/17 13:29 Ur Leukocyte Esterase 3+ Charleen/uL (Negative) H 10/28/17 13:29 Urine WBC (Auto) 3299 /hpf (0-5) H 10/28/17 13:29 Urine RBC (Auto) 83 /hpf (0-3) H 10/28/17 13:29 Urine WBC Clumps (Auto) Few /hpf (NONE) H 10/28/17 13:29 Urine Bacteria Occ (<OCC) H 10/28/17 13:29 Urine Opiates Screen Positive (NEGATIVE) H 10/29/17 06:19 Urine Methadone Screen Negative (NEGATIVE) 10/29/17 06:19 Ur Barbiturates Screen Negative (NEGATIVE) 10/29/17 06:19 Ur Phencyclidine Scrn Negative (NEGATIVE) 10/29/17 06:19 Ur Amphetamines Screen Negative (NEGATIVE) 10/29/17 06:19 U Benzodiazepines Scrn Negative (NEGATIVE) 10/29/17 06:19 U Oth Cocaine Metabols Negative (NEGATIVE) 10/29/17 06:19 U Cannabinoids Screen Negative (NEGATIVE) 10/29/17 06:19 - Hospital Course Hospital Course: Patient is seen and examined this am. Alert and orientedx3, denies anymore headache. Blood pressure is stable. MRI showed no acute changes. Cleared by neurologist for discharge home and follow up as outpatient,plan to discharge home today. Advised to continue with HD in am as scheduled. Advised to follow up with DR Ferro in the office in 1 -2 weeks. Discharge Exam - Head Exam Head Exam: ATRAUMATIC, NORMAL INSPECTION - Eye Exam Eye Exam: EOMI, Normal appearance, PERRL Pupil Exam: NORMAL ACCOMODATION, PERRL - ENT Exam ENT Exam: Mucous Membranes Moist - Respiratory Exam Respiratory Exam: Clear to PA & Lateral, NORMAL BREATHING PATTERN - Cardiovascular Exam Cardiovascular Exam: REGULAR RHYTHM, +S1, +S2 - GI/Abdominal Exam GI & Abdominal Exam: Normal Bowel Sounds - Rectal Exam Rectal Exam: Deferred Discharge Plan - Discharge Medications Prescriptions: oxyCODONE/Acetaminophen [Percocet 5/325 mg Tab] 2 tab PO Q4H PRN #20 tab PRN Reason: prn for pain Alprazolam [Xanax] 0.5 mg PO Q12H PRN #20 tab PRN Reason: Anxiety - Follow Up Plan Condition: FAIR Disposition: HOME/ ROUTINE Instructions: Quitting Smoking for Older Adults, Stroke (DC), Intracerebral Hemorrhage (DC), Dialysis and Diet, Urinary Tract Infection in Men (DC) Referrals: Lamonte Adam Jr., MD [Staff Provider] - Mikel Marc MD [Staff Provider] - Balta Ferro MD [Staff Provider] -
== END 2017-11-01 14:11 | disposition home or self-care (01) | DRG 569 ==
LOC: C.ER 12:09 → C.9E 15:55 → C.3T 16:07
PROVIDERS: ADMIT Internal Medicine; ATTEND Internal Medicine
PROC: 5A1D70Z Performance of Urinary Filtration, Intermittent, Less than 6 Hours Per Day (ICD-10-PCS; principal; 2017-10-28)
DX: N20.0 Calculus of kidney (principal); I61.9 Nontraumatic intracerebral hemorrhage, unspecified; N17.9 Acute kidney failure, unspecified; N12 Tubulo-interstitial nephritis, not specified as acute or chronic; I12.0 Hypertensive chronic kidney disease with stage 5 chronic kidney disease or end stage renal disease; B19.20 Unspecified viral hepatitis C without hepatic coma; N18.6 End stage renal disease; N13.8 Other obstructive and reflux uropathy; F17.210 Nicotine dependence, cigarettes, uncomplicated; Z99.2 Dependence on renal dialysis; Z90.5 Acquired absence of kidney; Z86.711 Personal history of pulmonary embolism; Z87.442 Personal history of urinary calculi

== ENCOUNTER 2017-12-20 18:08 | Inpatient (IN) | payer OTHER ==
[2017-12-20 18:08] VITALS: BMI 25.7
[2017-12-20] MEDS ORDERED: Oxycodone/Acetaminophen 5/325 mg Tab PO STA (18:52)
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
[2017-12-20] MEDS ORDERED: Oxycodone/Acetaminophen 5/325 mg Tab ONE (19:05)
[2017-12-20 19:07] LABS: BASO % 0.6 % (0.0-2.0); EOS # 0.1 K/uL (0.0-0.7); HEMOGLOBIN 9.8 g/dL (12.0-18.0); LYMPH # 1.4 K/uL (1.0-4.3); LYMPH % 21.4 % (20.0-40.0); MEAN CELL VOLUME 95.4 fL (80.0-94.0); MEAN CORPUSCULAR HEMOGLOBIN 32.1 pg (27.0-31.0); MEAN CORPUSCULAR HGB CONC 33.6 g/dL (33.0-37.0); MEAN PLATELET VOLUME 7.6 fL (7.2-11.7); MONO # 0.6 K/uL (0.0-0.8); MONO % 8.8 % (0.0-10.0); NEUT # 4.4 K/uL (1.8-7.0); NEUT % 68.2 % (50.0-75.0); NRBC % 0.1 % (0.0-2.0); RBC 3.06 Mil/uL (4.40-5.90); WHITE BLOOD COUNT 6.4 K/uL (4.8-10.8)
[2017-12-20 19:20] LABS: ALBUMIN 3.9 g/dL (3.5-5.0); CALCIUM 9.4 mg/dl (8.6-10.4)
[2017-12-20 20:41] LABS: URINE BACTERIA MOD (<OCC); URINE BILIRUBIN NEGATIVE (NEGATIVE); URINE BLOOD 1+ (NEGATIVE); URINE CLARITY Turbid (Clear); URINE COLOR Amber (YELLOW); URINE GLUCOSE (UA) NORMAL (Normal); URINE LEUKOCYTE ESTERASE 3+ Leu/uL (Negative); URINE PROTEIN 2+ mg/dL (NEGATIVE); URINE UROBILINOGEN NORMAL mg/dL (0.2-1.0); WBC CLUMPS OCC /hpf
[2017-12-20] MEDS ORDERED: Piperacill/Tazo 2.25gm in Dex 2.25 GM/50 ML BAG IVPB STA (21:45)
[2017-12-20] MEDS ORDERED: Vancomycin 1 GM 1 GM/250 ML BAG IV SCH (22:00)
[2017-12-20] MEDS ORDERED: Piperacillin/Tazobact 3.375 gm 100 ML IVPB ONE (22:28)
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
[2017-12-20] MEDS ORDERED: Oxycodone/Acetaminophen 5/325 mg Tab PO PRN (22:50)
[2017-12-20] MEDS ORDERED: Vancomycin 1 gm/NS 200 ml 1 GM/200 ML BAG IVPB ONE (23:00)
[2017-12-20] MEDS: Piperacillin/Tazobact 2.25 GM in Sodium Chloride 100 ML IVPB SCH (23:11)
[2017-12-21] MEDS: Oxycodone/Acetaminophen 5/325 mg Tab PO PRN ×4 (02:42→22:09)
[2017-12-21] MEDS: Piperacillin/Tazobact 2.25 GM in Sodium Chloride 100 ML IVPB SCH ×4 (06:18→22:06)
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
[2017-12-21] MEDS ORDERED: Epoetin Alfa 10,000 unit/ml Dialysis IV SCH (14:00)
[2017-12-22 01:33] VITALS: PULSE 75; RESP 20; O2SAT 95
[2017-12-22] MEDS: Oxycodone/Acetaminophen 5/325 mg Tab PO PRN ×2 (02:29→06:34)
[2017-12-22] MEDS: Piperacillin/Tazobact 2.25 GM in Sodium Chloride 100 ML IVPB SCH (05:30)
--- NOTE | 2017-12-22 07:33 | CP.PCM.PN ---
Subjective - Date & Time of Evaluation Date of Evaluation: 12/21/17 Time of Evaluation: 18:00 - Subjective Subjective: Pt is seen and examined, Objective - Vital Signs/Intake and Output Vital Signs (last 24 hours): Temp Pulse Resp BP Pulse Ox 98.0 F 75 20 137/60 95 12/21/17 23:50 12/21/17 23:50 12/21/17 23:50 12/21/17 23:50 12/21/17 23:50 Intake and Output: 12/22/17 12/22/17 06:59 18:59 Intake Total 550 Output Total 100 Balance 450 - Medications Medications: Current Medications Alprazolam (Xanax) 0.5 mg PO Q12H PRN PRN Reason: Anxiety Last Admin: 12/22/17 06:40 Dose: 0.5 mg Epoetin Zain (Procrit) 10,000 unit IV TTS [facility] Ferrous Sulfate (Feosol) 325 mg PO BID [facility] Last Admin: 12/21/17 17:46 Dose: 325 mg Heparin Sodium (Porcine) (Heparin) 5,000 units SC Q8 [facility] Last Admin: 12/21/17 22:05 Dose: Not Given Piperacillin Sod/Tazobactam (Sod 2.25 gm/ Sodium Chloride) 100 mls @ 200 mls/ hr IVPB Q6H [facility] PRN Reason: Protocol Last Admin: 12/22/17 05:30 Dose: 200 mls/hr Oxycodone/Acetaminophen (Percocet 5/325 Mg Tab) 1 tab PO Q4H PRN PRN Reason: MODERATE PAIN (4-7) Stop: 12/23/17 22:51 Oxycodone/Acetaminophen (Percocet 5/325 Mg Tab) 2 tab PO Q4H PRN PRN Reason: SEVERE PAIN 8-10 Stop: 12/23/17 22:51 Last Admin: 12/22/17 06:34 Dose: 2 tab Sevelamer Carbonate (Renvela) 1,600 mg PO TIDCC [facility] Last Admin: 12/21/17 17:46 Dose: 1,600 mg Tamsulosin HCl (Flomax) 0.4 mg PO DAILY [facility] Last Admin: 12/21/17 09:16 Dose: 0.4 mg - Labs Labs: 12/20/17 19:03 12/20/17 19:03
[2017-12-22 08:09] VITALS: BP 160/70; TEMP 98.1
--- NOTE | 2017-12-22 11:23 | CP.PCM.PN ---
Subjective - Date & Time of Evaluation Date of Evaluation: 12/22/17 Time of Evaluation: 11:22 - Subjective Subjective: Patient signed out AMA. Risks were explained (worsening of symptoms and complications that may be life threatening) to patient and he expressed understanding. AMA consent formed signed and in chart. Objective - Vital Signs/Intake and Output Vital Signs (last 24 hours): Temp Pulse Resp BP Pulse Ox 98.1 F 75 20 160/70 H 95 12/22/17 07:00 12/22/17 07:00 12/22/17 07:00 12/22/17 07:00 12/22/17 07:00 Intake and Output: 12/22/17 12/22/17 06:59 18:59 Intake Total 550 Output Total 100 Balance 450 - Labs Labs: 12/20/17 19:03 12/20/17 19:03
--- NOTE | 2017-12-22 23:44 | CP.PCM.DIS ---
Provider - Provider Date of Admission: 12/20/17 21:57 Attending physician: Mikel Marc MD Time Spent in preparation of Discharge (in minutes): 45 Hospital Course - Lab Results Lab Results: Micro Results 12/20/17 20:30 Urine Urine Culture - Final 10-50,000 CFU/ML. MULTIPLE SPECIES. PROBABLE CONTAMINATION. Most Recent Lab Values WBC 6.4 K/uL (4.8-10.8) 12/20/17 19:03 RBC 3.06 Mil/uL (4.40-5.90) L 12/20/17 19:03 Hgb 9.8 g/dL (12.0-18.0) L 12/20/17 19: Hct 29.2 % (35.0-51.0) L 12/20/17 19:03 MCV 95.4 fL (80.0-94.0) H 12/20/17 19:03 MCH 32.1 pg (27.0-31.0) H 12/20/17 19:03 MCHC 33.6 g/dL (33.0-37.0) 12/20/17 19:03 RDW 14.0 % (11.5-14.5) 12/20/17 19:03 Plt Count 204 K/uL (130-400) 12/20/17 19:03 MPV 7.6 fL (7.2-11.7) 12/20/17 19:03 Neut % (Auto) 68.2 % (50.0-75.0) 12/20/17 19: Lymph % (Auto) 21.4 % (20.0-40.0) 12/20/17 19:03 [place] % (Auto) 8.8 % (0.0-10.0) 12/20/17 19:03 Eos % (Auto) 1.0 % (0.0-4.0) 12/20/17 19:03 Baso % (Auto) 0.6 % (0.0-2.0) 12/20/17 19:03 Neut # (Auto) 4.4 K/uL (1.8-7.0) 12/20/17 19:03 Lymph # (Auto) 1.4 K/uL (1.0-4.3) 12/20/17 19:03 [place] # (Auto) 0.6 K/uL (0.0-0.8) 12/20/17 19:03 Eos # (Auto) 0.1 K/uL (0.0-0.7) 12/20/17 19:03 Baso # (Auto) 0.0 K/uL (0.0-0.2) 12/20/17 19:03 Sodium 137 mmol/L (132-148) 12/20/17 19:03 Potassium 4.0 mmol/L (3.6-5.2) 12/20/17 19:03 Chloride 94 mmol/L (98-107) L 12/20/17 19:03 Carbon Dioxide 28 mmol/L (22-30) 12/20/17 19:03 Anion Gap 18 (10-20) 12/20/17 19:03 BUN 65 mg/dL (9-20) H 12/20/17 19:03 Creatinine 9.0 mg/dL (0.8-1.5) H* D 12/20/17 19:03 Est GFR ( Amer) 8 12/20/17 19:03 Est GFR (Non-Af Amer) 6 12/20/17 19:03 Random Glucose 116 mg/dL (75-110) H 12/20/17 19:03 Calcium 9.4 mg/dl (8.6-10.4) 12/20/17 19:03 Total Bilirubin 0.7 mg/dL (0.2-1.3) 12/20/17 19:03 AST 20 U/L (17-59) 12/20/17 19:03 ALT 22 U/L (21-72) 12/20/17 19:03 Alkaline Phosphatase 101 U/L (38-126) 12/20/17 19:03 Total Protein 7.7 g/dL (6.3-8.3) 12/20/17 19:03 Albumin 3.9 g/dL (3.5-5.0) 12/20/17 19:03 Globulin 3.8 gm/dL (2.2-3.9) 12/20/17 19:03 Albumin/Globulin Ratio 1.0 (1.0-2.1) 12/20/17 19:03 Urine Color Kenyatta (YELLOW) 12/20/17 20:30 Urine Clarity Turbid (Clear) 12/20/17 20:30 Urine pH 8.0 (5.0-8.0) 12/20/17 20:30 Ur Specific [place] 1.010 (1.003-1.030) 12/20/17 20:30 Urine Protein 2+ mg/dL (NEGATIVE) H 12/20/17 20:30 Urine Glucose (UA) Normal mg/dL (Normal) 12/20/17 20:30 Urine Ketones Negative mg/dL (NEGATIVE) 12/20/17 20:30 Urine Blood 1+ (NEGATIVE) H 12/20/17 20:30 Urine Nitrate Negative (NEGATIVE) 12/20/17 20:30 Urine Bilirubin Negative (NEGATIVE) 12/20/17 20:30 Urine Urobilinogen Normal mg/dL (0.2-1.0) 12/20/17 20:30 Ur Leukocyte Esterase 3+ [place]leen/uL (Negative) H 12/20/17 20:30 Urine WBC (Auto) 1524 /hpf (0-5) H 12/20/17 20:30 Urine RBC (Auto) 36 /hpf (0-3) H 12/20/17 20:30 Urine WBC Clumps (Auto) Occ /hpf (NONE) H 12/20/17 20:30 Urine Bacteria Mod (<OCC) H 12/20/17 20:30 - Hospital Course Hospital Course: Pt is for discharge today Discharge Exam - Head Exam Head Exam: ATRAUMATIC, NORMAL INSPECTION Discharge Plan - Follow Up Plan Condition: STABLE Disposition: AGAINST MEDICAL ADVICE
== END 2017-12-22 10:57 | disposition left against medical advice (07) | DRG 320 ==
LOC: C.ER 18:08 → C.9E 21:57 → C.6T 12-21 01:45
PROVIDERS: ADMIT Internal Medicine; ATTEND Internal Medicine
DX: N10 Acute pyelonephritis (principal); I12.0 Hypertensive chronic kidney disease with stage 5 chronic kidney disease or end stage renal disease; N18.6 End stage renal disease; N20.0 Calculus of kidney; F17.210 Nicotine dependence, cigarettes, uncomplicated; G89.4 Chronic pain syndrome; Z86.711 Personal history of pulmonary embolism; Z87.440 Personal history of urinary (tract) infections; Z87.442 Personal history of urinary calculi; Z90.5 Acquired absence of kidney; Z99.2 Dependence on renal dialysis

== ENCOUNTER 2017-12-23 15:50 | Inpatient (IN) | payer OTHER ==
[2017-12-23 16:04] VITALS: BMI 25.2
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
[2017-12-23] MEDS ORDERED: Morphine 4 MG/ML VIAL ONE (18:02)
[2017-12-23 19:17] LABS: BASO % 0.9 % (0.0-2.0); EOS # 0.1 K/uL (0.0-0.7); EOS % 1.5 % (0.0-4.0); HEMOGLOBIN 9.6 g/dL (12.0-18.0); LYMPH # 0.9 K/uL (1.0-4.3); LYMPH % 16.6 % (20.0-40.0); MEAN CORPUSCULAR HEMOGLOBIN 32.4 pg (27.0-31.0); MEAN CORPUSCULAR HGB CONC 33.7 g/dL (33.0-37.0); MEAN PLATELET VOLUME 7.4 fL (7.2-11.7); MONO # 0.5 K/uL (0.0-0.8); MONO % 8.3 % (0.0-10.0); NEUT % 72.7 % (50.0-75.0); RBC 2.96 Mil/uL (4.40-5.90); RED CELL DISTRIBUTION WIDTH 13.6 % (11.5-14.5); URINE BACTERIA MANY (<OCC); URINE BILIRUBIN NEGATIVE (NEGATIVE); URINE BLOOD 1+ (NEGATIVE); URINE CLARITY Hazy (Clear); URINE COLOR Yellow (YELLOW); URINE GLUCOSE (UA) NORMAL (Normal); URINE LEUKOCYTE ESTERASE 3+ Leu/uL (Negative); URINE PROTEIN 2+ mg/dL (NEGATIVE); URINE UROBILINOGEN NORMAL mg/dL (0.2-1.0); WHITE BLOOD COUNT 5.5 K/uL (4.8-10.8)
[2017-12-23 19:24] LABS: ALB/GLOB RATIO 1.1 (1.0-2.1); ALBUMIN 4.1 g/dL (3.5-5.0); CALCIUM 9.3 mg/dl (8.6-10.4)
[2017-12-23 19:27] LABS: BARBITURATES, UR NEGATIVE (NEGATIVE); PHENCYCLIDINE, UR NEGATIVE (NEGATIVE)
[2017-12-23 19:28] LABS: BENZODIAZEPINES, UR POSITIVE (NEGATIVE); OPIATES, UR POSITIVE (NEGATIVE)
[2017-12-23] MEDS: Oxycodone/Acetaminophen 5/325 mg Tab PO PRN (20:19)
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
[2017-12-24] MEDS: Oxycodone/Acetaminophen 5/325 mg Tab PO PRN ×4 (04:25→21:46)
[2017-12-24 07:26] LABS: INR 1.2; PROTHROMBIN TIME 13.4 SECONDS (9.7-12.2)
[2017-12-24] MEDS: Pantoprazole 40 mg EC Tab PO SCH (10:10)
--- NOTE | 2017-12-24 10:51 | RAD ---
Right shoulder three views History: Shoulder pain. Comparison: None available. Findings: Chronic fracture deformity of the distal right clavicle with callus formation noted at the fracture site with some chronic angulation also noted at the fracture site. Moderate degenerative changes of the acromioclavicular joint space with some bony hypertrophy. Glenohumeral joint space appears grossly preserved without evidence of acute displaced fracture or dislocation. Impression: Chronic fracture deformity of the distal right clavicle with callus formation noted at the fracture site with some chronic angulation also noted at the fracture site. Moderate degenerative changes of the acromioclavicular joint space with some bony hypertrophy. If pain persists, consider MRI.
[2017-12-25] MEDS: Oxycodone/Acetaminophen 5/325 mg Tab PO PRN ×3 (03:00→16:31)
[2017-12-25] MEDS: Pantoprazole 40 mg EC Tab PO SCH (09:17)
--- NOTE | 2017-12-25 09:34 | CP.PCM.PN ---
Subjective - Date & Time of Evaluation Date of Evaluation: 12/24/17 Time of Evaluation: 18:00 - Subjective Subjective: Pt seen and examined, still complains of right flank pain, pt is on antibiotics , pending urine cultures Objective - Vital Signs/Intake and Output Vital Signs (last 24 hours): Temp Pulse Resp BP Pulse Ox 98 F 69 20 117/60 95 12/25/17 07:56 12/25/17 07:56 12/25/17 07:56 12/25/17 07:56 12/25/17 07:56 Intake and Output: 12/25/17 12/25/17 06:59 18:59 Intake Total 680 Balance 680 - Medications Medications: Current Medications Alprazolam (Xanax) 0.5 mg PO Q12H PRN PRN Reason: Anxiety Last Admin: 12/23/17 21:40 Dose: 0.5 mg Ferrous Sulfate (Feosol) 325 mg PO BID [facility] Last Admin: 12/25/17 09:17 Dose: 325 mg Heparin Sodium (Porcine) (Heparin) 5,000 units SC Q8 [facility] Last Admin: 12/25/17 06:10 Dose: 5,000 units Ceftriaxone Sodium 1 gm/ (Sodium Chloride) 100 mls @ 100 mls/hr IVPB DAILY [facility] PRN Reason: Protocol Last Admin: 12/25/17 09:17 Dose: 100 mls/hr Oxycodone/Acetaminophen (Percocet 5/325 Mg Tab) 2 tab PO Q4H PRN PRN Reason: prn for pain Stop: 12/26/17 19:55 Last Admin: 12/25/17 09:09 Dose: 2 tab Pantoprazole Sodium (Protonix Ec Tab) 40 mg PO DAILY [facility] Last Admin: 12/25/17 09:17 Dose: 40 mg Sevelamer Carbonate (Renvela) 1,600 mg PO TID [facility] Last Admin: 12/25/17 09:17 Dose: 1,600 mg Tamsulosin HCl (Flomax) 0.4 mg PO DAILY [facility] Last Admin: 12/25/17 09:17 Dose: 0.4 mg - Labs Labs: 12/23/17 19:01 12/23/17 19:01 PT 13.4 SECONDS (9.7-12.2) H 12/24/17 06:47 INR 1.2 12/24/17 06:47 APTT 42 SECONDS (21-34) H 12/24/17 06:47 - Constitutional Appears: No Acute Distress - Head Exam Head Exam: ATRAUMATIC, NORMAL INSPECTION, NORMOCEPHALIC - Eye Exam Eye Exam: EOMI, Normal appearance, PERRL Pupil Exam: NORMAL ACCOMODATION, PERRL - Respiratory Exam Respiratory Exam: Clear to Ausculation Bilateral, NORMAL BREATHING PATTERN - Cardiovascular Exam Cardiovascular Exam: REGULAR RHYTHM, +S1, +S2. absent: Murmur - GI/Abdominal Exam GI & Abdominal Exam: Soft, Normal Bowel Sounds. absent: Tenderness Additional comments: scar on right flank of previous nephrectomy - Rectal Exam Rectal Exam: Deferred - Back Exam Back Exam: CVA tenderness (R) - Neurological Exam Neurological Exam: Alert, Awake, CN II-XII Intact, Normal Gait, Oriented x3 - Psychiatric Exam Psychiatric exam: Anxious, Depressed - Skin Skin Exam: Dry, Normal Color Assessment and Plan (1) Renal colic on right side Status: Acute (2) CKD (chronic kidney disease) Status: Acute (3) Chronic pyelonephritis Status: Acute (4) Nephrolithiasis Status: Acute
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
--- NOTE | 2017-12-25 12:17 | CT ---
Date of service: 12/25/2017 PROCEDURE: CT Abdomen and Pelvis without intravenous contrast HISTORY: renal colic COMPARISON: 10/28/2017 TECHNIQUE: Without contrast.. Contrast dose: 0 Radiation dose: Total exam DLP = 1119.71 mGy-cm. This CT exam was performed using one or more of the following dose reduction techniques: Automated exposure control, adjustment of the mA and/or kV according to patient size, and/or use of iterative reconstruction technique. FINDINGS: LOWER THORAX: Bilateral lower lobe linear scar/atelectasis given the interval change since prior examination, most likely atelectasis. LIVER: Unremarkable. No gross lesion or ductal dilatation. GALLBLADDER AND BILE DUCTS: Gallbladder contracted. No calcified gallstones. PANCREAS: Unremarkable. No gross lesion or ductal dilatation. SPLEEN: Unremarkable. ADRENALS: Unremarkable. No mass. KIDNEYS AND URETERS: Status post left nephrectomy. Extensive right hydronephrosis with staghorn calculus and numerous additional right renal calculi. Right ureteral stent. VASCULATURE: Unremarkable. No aortic aneurysm. BOWEL: Mild retained feces. No bowel obstruction. APPENDIX: Status post appendectomy PERITONEUM: Unremarkable. No free fluid. No free air. LYMPH NODES: Unremarkable. No enlarged lymph nodes. BLADDER: Unremarkable. REPRODUCTIVE: Unremarkable prostate BONES: No acute fracture. OTHER FINDINGS: None. IMPRESSION: Right staghorn calculus with numerous additional right renal calculi and extensive right hydronephrosis. Right ureteral stent. Status post left nephrectomy.
[2017-12-26] MEDS: Oxycodone/Acetaminophen 5/325 mg Tab PO PRN ×4 (02:55→16:41)
[2017-12-26 08:21] LABS: ALBUMIN 3.4 g/dL (3.5-5.0); CALCIUM 9.1 mg/dl (8.6-10.4)
[2017-12-26] MEDS: Pantoprazole 40 mg EC Tab PO SCH (09:00)
[2017-12-26 10:12] VITALS: RESP 20; O2SAT 98
[2017-12-26] MEDS ORDERED: Lidocaine 2% MPF (5 ml) Inj ONE (14:21)
[2017-12-26 14:26] LABS: CALCIUM 9.7 mg/dl (8.6-10.4)
[2017-12-26] MEDS ORDERED: Midazolam 2 MG/2 ML VIAL ONE (14:49)
--- NOTE | 2017-12-26 15:26 | PCM.SURG1 ---
Surgeon's Initial Post Op Note - Surgeon's Notes Surgeon: Mc Sparks MD Skin Care Instructor: NONE Type of Anesthesia: IV Sedation Pre-Operative Diagnosis: Renal stone, hydronephrosis Operative Findings: Nephrostogram showed severe hydronephrosis. Obstructing stone renal pelvis. Large calyceal stone midpole. Post-Operative Diagnosis: Renal stone, hydronephrosis Operation Performed: Unsuccessful nephrostomy tube placement. Pt asked that procedure be stopped after the collecting system was accessed. He had pain. Pt was given Versed 4 mg and Fentanyl 200 mcg to that point. Procedure was aborted. Specimen/Specimens Removed: None Estimated Blood Loss: EBL {In ML}: 1 Blood Products Given: N/A Drains Used: No Drains Post-Op Condition: Fair Date of Surgery/Procedure: 12/26/17 Time of Surgery/Procedure: 15:20
[2017-12-26 16:57] VITALS: BP 136/62; PULSE 87; TEMP 98.1
--- NOTE | 2017-12-26 17:32 | CP.PCM.PN ---
Subjective - Date & Time of Evaluation Date of Evaluation: 12/26/17 Time of Evaluation: 17:30 - Subjective Subjective: seen and examined in hd this am uf 2.5L estimated improved pain. Objective - Vital Signs/Intake and Output Vital Signs (last 24 hours): Temp Pulse Resp BP Pulse Ox 98.1 F 87 20 136/62 98 12/26/17 16:00 12/26/17 16:00 12/26/17 16:00 12/26/17 16:00 12/26/17 16:00 Intake and Output: 12/26/17 12/26/17 06:59 18:59 Intake Total 480 0 Balance 480 0 - Medications Medications: Current Medications Alprazolam (Xanax) 0.5 mg PO Q12H PRN PRN Reason: Anxiety Last Admin: 12/25/17 13:06 Dose: 0.5 mg Ferrous Sulfate (Feosol) 325 mg PO BID [facility] Last Admin: 12/26/17 09:00 Dose: Not Given Heparin Sodium (Porcine) (Heparin) 5,000 units SC Q8 [facility] Last Admin: 12/26/17 13:05 Dose: Not Given Ceftriaxone Sodium 1 gm/ (Sodium Chloride) 100 mls @ 100 mls/hr IVPB DAILY [facility] PRN Reason: Protocol Last Admin: 12/26/17 11:29 Dose: 100 mls/hr Oxycodone/Acetaminophen (Percocet 5/325 Mg Tab) 2 tab PO Q4H PRN PRN Reason: prn for pain Stop: 12/26/17 19:55 Last Admin: 12/26/17 16:41 Dose: 2 tab Pantoprazole Sodium (Protonix Ec Tab) 40 mg PO DAILY [facility] Last Admin: 12/26/17 09:00 Dose: Not Given Sevelamer Carbonate (Renvela) 1,600 mg PO TID [facility] Last Admin: 12/26/17 13:07 Dose: Not Given Tamsulosin HCl (Flomax) 0.4 mg PO DAILY [facility] Last Admin: 12/26/17 09:00 Dose: Not Given - Labs Labs: 12/23/17 19:01 12/26/17 14:01 PT 13.4 SECONDS (9.7-12.2) H 12/24/17 06:47 INR 1.2 12/24/17 06:47 APTT 42 SECONDS (21-34) H 12/24/17 06:47 - Constitutional Appears: Non-toxic, In Acute Distress, Chronically Ill - Head Exam Head Exam: NORMAL INSPECTION, NORMOCEPHALIC - Eye Exam Eye Exam: Normal appearance Pupil Exam: PERRL - ENT Exam ENT Exam: Mucous Membranes Moist - Neck Exam Neck Exam: Full ROM, Normal Inspection - Respiratory Exam Respiratory Exam: Clear to Ausculation Bilateral, NORMAL BREATHING PATTERN - Cardiovascular Exam Cardiovascular Exam: REGULAR RHYTHM, RRR - GI/Abdominal Exam GI & Abdominal Exam: Distended, Soft, Normal Bowel Sounds - Extremities Exam Extremities Exam: Full ROM, Normal Inspection - Neurological Exam Neurological Exam: Alert, Awake, Oriented x3 - Psychiatric Exam Psychiatric exam: Normal Affect, Normal Mood - Skin Skin Exam: Dry, Intact Assessment and Plan (1) Renal colic on right side Status: Acute (2) Chronic pyelonephritis Status: Acute (3) ESRD (end stage renal disease) Status: Acute (4) Hypertension Status: Acute - Assessment and Plan (Free Text) Assessment: hd tts schedule pain control urology f/u ?nephrectomy
--- NOTE | 2017-12-26 21:27 | CP.PCM.PN ---
Subjective - Date & Time of Evaluation Date of Evaluation: 12/25/17 Time of Evaluation: 17:00 - Subjective Subjective: Pt seen and evalauted at bedside Objective - Vital Signs/Intake and Output Vital Signs (last 24 hours): Temp Pulse Resp BP Pulse Ox 98.1 F 87 20 136/62 98 12/26/17 16:00 12/26/17 16:00 12/26/17 16:00 12/26/17 16:00 12/26/17 16:00 Intake and Output: 12/26/17 12/27/17 18:59 06:59 Intake Total 0 Balance 0 - Labs Labs: 12/23/17 19:01 12/26/17 14:01 PT 13.4 SECONDS (9.7-12.2) H 12/24/17 06:47 INR 1.2 12/24/17 06:47 APTT 42 SECONDS (21-34) H 12/24/17 06:47 Assessment and Plan (1) Renal colic on right side Status: Acute (2) CKD (chronic kidney disease) Status: Acute (3) Chronic pyelonephritis Status: Acute (4) Nephrolithiasis Status: Acute
--- NOTE | 2017-12-26 21:29 | CP.PCM.DIS ---
Provider - Provider Date of Admission: 12/23/17 17:23 Attending physician: Mikel Marc MD Time Spent in preparation of Discharge (in minutes): 45 Diagnosis - Discharge Diagnosis (1) Renal colic on right side Status: Acute (2) CKD (chronic kidney disease) Status: Acute (3) Chronic pyelonephritis Status: Acute (4) Nephrolithiasis Status: Acute Hospital Course - Lab Results Lab Results: Micro Results 12/24/17 20:57 Urine Urine Culture - Final No Growth (<1,000 CFU/ML) Most Recent Lab Values WBC 5.5 K/uL (4.8-10.8) 12/23/17 19:01 RBC 2.96 Mil/uL (4.40-5.90) L 12/23/17 19: Hgb 9.6 g/dL (12.0-18.0) L 12/23/17 19: Hct 28.4 % (35.0-51.0) L 12/23/17 19: MCV 96.0 fL (80.0-94.0) H 12/23/17 19: MCH 32.4 pg (27.0-31.0) H 12/23/17 19:01 MCHC 33.7 g/dL (33.0-37.0) 12/23/17 19: RDW 13.6 % (11.5-14.5) 12/23/17 19:01 Plt Count 230 K/uL (130-400) 12/23/17 19:01 MPV 7.4 fL (7.2-11.7) 12/23/17 19:01 Neut % (Auto) 72.7 % (50.0-75.0) 12/23/17 19: Lymph % (Auto) 16.6 % (20.0-40.0) L 12/23/17 19: [place] % (Auto) 8.3 % (0.0-10.0) 12/23/17 19: Eos % (Auto) 1.5 % (0.0-4.0) 12/23/17 19: Baso % (Auto) 0.9 % (0.0-2.0) 12/23/17 19: Neut # (Auto) 4.0 K/uL (1.8-7.0) 12/23/17 19:01 Lymph # (Auto) 0.9 K/uL (1.0-4.3) L 12/23/17 19:01 Winston # (Auto) 0.5 K/uL (0.0-0.8) 12/23/17 19:01 Eos # (Auto) 0.1 K/uL (0.0-0.7) 12/23/17 19:01 Baso # (Auto) 0.0 K/uL (0.0-0.2) 12/23/17 19:01 PT 13.4 SECONDS (9.7-12.2) H 12/24/17 06:47 INR 1.2 12/24/17 06:47 APTT 42 SECONDS (21-34) H 12/24/17 06:47 Sodium 141 mmol/L (132-148) 12/26/17 14:01 Potassium 5.7 mmol/L (3.6-5.2) H 12/26/17 14:01 Chloride 97 mmol/L (98-107) L 12/26/17 14:01 Carbon Dioxide 30 mmol/L (22-30) 12/26/17 14:01 Anion Gap 20 (10-20) 12/26/17 14:01 BUN 41 mg/dL (9-20) H 12/26/17 14:01 Creatinine 7.4 mg/dL (0.8-1.5) H* D 12/26/17 14:01 Est GFR ( Amer) 10 12/26/17 14:01 Est GFR (Non-Af Amer) 8 12/26/17 14:01 Random Glucose 89 mg/dL (75-110) 12/26/17 14:01 Calcium 9.7 mg/dl (8.6-10.4) 12/26/17 14:01 Total Bilirubin 0.3 mg/dL (0.2-1.3) 12/26/17 06:44 AST 14 U/L (17-59) L 12/26/17 06:44 ALT 18 U/L (21-72) L D 12/26/17 06:44 Alkaline Phosphatase 80 U/L (38-126) 12/26/17 06:44 Total Protein 6.7 g/dL (6.3-8.3) 12/26/17 06:44 Albumin 3.4 g/dL (3.5-5.0) L 12/26/17 06:44 Globulin 3.4 gm/dL (2.2-3.9) 12/26/17 06:44 Albumin/Globulin Ratio 1.0 (1.0-2.1) 12/26/17 06:44 Urine Color Yellow (YELLOW) 12/23/17 19:01 Urine Clarity Hazy (Clear) 12/23/17 19:01 Urine pH 8.0 (5.0-8.0) 12/23/17 19:01 Ur Specific [place] 1.009 (1.003-1.030) 12/23/17 19:01 Urine Protein 2+ mg/dL (NEGATIVE) H 12/23/17 19:01 Urine Glucose (UA) Normal mg/dL (Normal) 12/23/17 19:01 Urine Ketones Negative mg/dL (NEGATIVE) 12/23/17 19:01 Urine Blood 1+ (NEGATIVE) H 12/23/17 19:01 Urine Nitrate Negative (NEGATIVE) 12/23/17 19:01 Urine Bilirubin Negative (NEGATIVE) 12/23/17 19:01 Urine Urobilinogen Normal mg/dL (0.2-1.0) 12/23/17 19:01 Ur Leukocyte Esterase 3+ Charleen/uL (Negative) H 12/23/17 19:01 Urine WBC (Auto) 434 /hpf (0-5) H 12/23/17 19:01 Urine RBC (Auto) 50 /hpf (0-3) H 12/23/17 19:01 Urine Bacteria Many (<OCC) H 12/23/17 19:01 Urine Opiates Screen Positive (NEGATIVE) H 12/23/17 19:01 Urine Methadone Screen Negative (NEGATIVE) 12/23/17 19:01 Ur Barbiturates Screen Negative (NEGATIVE) 12/23/17 19:01 Ur Phencyclidine Scrn Negative (NEGATIVE) 12/23/17 19:01 Ur Amphetamines Screen Negative (NEGATIVE) 12/23/17 19:01 U Benzodiazepines Scrn Positive (NEGATIVE) 12/23/17 19:01 U Oth Cocaine Metabols Negative (NEGATIVE) 12/23/17 19:01 U Cannabinoids Screen Negative (NEGATIVE) 12/23/17 19:01 Discharge Exam - Head Exam Head Exam: NORMAL INSPECTION, NORMOCEPHALIC Discharge Plan - Follow Up Plan Condition: GUARDED Disposition: AGAINST MEDICAL ADVICE
== END 2017-12-26 17:40 | disposition left against medical advice (07) | DRG 323 ==
LOC: C.ER 15:50 → C.9E 17:23 → C.3T 18:19
PROVIDERS: ADMIT Internal Medicine; ATTEND Internal Medicine
PROC: 5A1D70Z Performance of Urinary Filtration, Intermittent, Less than 6 Hours Per Day (ICD-10-PCS; principal; 2017-12-26)
PROC: BT11ZZZ Fluoroscopy of Right Kidney (ICD-10-PCS; 2017-12-26)
DX: N13.2 Hydronephrosis with renal and ureteral calculous obstruction (principal); I12.0 Hypertensive chronic kidney disease with stage 5 chronic kidney disease or end stage renal disease; N18.6 End stage renal disease; N10 Acute pyelonephritis; F32.9 Major depressive disorder, single episode, unspecified; F41.9 Anxiety disorder, unspecified; Z99.2 Dependence on renal dialysis; Z90.5 Acquired absence of kidney; Z86.711 Personal history of pulmonary embolism; Z87.891 Personal history of nicotine dependence

== ENCOUNTER 2017-12-31 06:48 | Emergency (ER) | payer OTHER ==
[2017-12-31 06:49] VITALS: BMI 25.2
[2017-12-31] MEDS ORDERED: Magnesium Sulfate 1 gm in D5W 1 GM/100 ML BAG IVPB STA (07:33)
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
[2017-12-31 07:45] LABS: BASO # 0.1 K/uL (0.0-0.2); BASO % 0.7 % (0.0-2.0); EOS # 0.1 K/uL (0.0-0.7); EOS % 1.6 % (0.0-4.0); HEMOGLOBIN 11.4 g/dL (12.0-18.0); LYMPH # 2.6 K/uL (1.0-4.3); LYMPH % 31.7 % (20.0-40.0); MEAN CORPUSCULAR HGB CONC 33.3 g/dL (33.0-37.0); MEAN PLATELET VOLUME 7.4 fL (7.2-11.7); MONO # 0.7 K/uL (0.0-0.8); MONO % 8.5 % (0.0-10.0); NEUT # 4.6 K/uL (1.8-7.0); NEUT % 57.5 % (50.0-75.0); RBC 3.58 Mil/uL (4.40-5.90); RED CELL DISTRIBUTION WIDTH 13.5 % (11.5-14.5); WHITE BLOOD COUNT 8.1 K/uL (4.8-10.8)
[2017-12-31] MEDS ORDERED: Magnesium Sulfate 1 gm in D5W 1 GM/100 ML BAG IVPB ONE (07:46)
[2017-12-31 08:06] LABS: ALB/GLOB RATIO 0.9 (1.0-2.1); ALBUMIN 4.5 g/dL (3.5-5.0); CALCIUM 9.9 mg/dl (8.6-10.4)
--- NOTE | 2017-12-31 09:16 | CT ---
Date of service: 12/31/2017 PROCEDURE: CT HEAD WITHOUT CONTRAST. HISTORY: Headache COMPARISON: Noncontrast head CT 10/31/2017 and brain MRI 10/31/2017 as well. TECHNIQUE: Axial computed tomography images were obtained through the head/brain without intravenous contrast. Radiation dose: Total exam DLP = 892.95 mGy-cm. This CT exam was performed using one or more of the following dose reduction techniques: Automated exposure control, adjustment of the mA and/or kV according to patient size, and/or use of iterative reconstruction technique. FINDINGS: HEMORRHAGE: No intracranial hemorrhage including at the left parietal lobe where a small hyperdensity was seen approach the left parietal vertex on 10/31/2017. . BRAIN: Normal [place]-white matter differentiation and density are appreciated throughout the cerebrum and cerebellum with the brainstem appearing unremarkable as well. There is no mass effect. There is no suspicious extra-axial fluid collection and the midline brain anatomy appears diffusely unremarkable. No atrophy or chronic microvascular ischemic changes. VENTRICLES: Unremarkable. No hydrocephalus. CALVARIUM: Unremarkable. PARANASAL SINUSES: Unremarkable as visualized. No significant inflammatory changes. MASTOID AIR CELLS: Unremarkable as visualized. No inflammatory changes. OTHER FINDINGS: None. IMPRESSION: Unremarkable noncontrast head CT. Prior left parietal hyperdensity not identified currently.
[2017-12-31 09:23] VITALS: RESP 14
--- NOTE | 2017-12-31 09:50 | RAD ---
Date of service: 12/31/2017 PROCEDURE: CHEST RADIOGRAPH, 1 VIEW HISTORY: headache esrd COMPARISON: Portable chest 10/21/2016. FINDINGS: LUNGS: No interval pulmonary disease appreciated bilaterally. PLEURA: No pneumothorax or pleural fluid seen. CARDIOVASCULAR: Normal. OSSEOUS STRUCTURES: No significant abnormalities. VISUALIZED UPPER ABDOMEN: Normal. OTHER FINDINGS: None. IMPRESSION: No interval acute cardiopulmonary disease appreciated.
[2017-12-31 10:54] VITALS: BP 121/55; PULSE 67; TEMP 98.8; O2SAT 99
--- NOTE | 2018-01-02 15:07 | CARD ---
APPROVED REPORT Date of service: 12/31/2017 EKG Measurement Heart [id number] 150P-19 [id number] <Conclusion> Normal sinus rhythm Voltage criteria for left ventricular hypertrophy Abnormal ECG
== END 2017-12-31 10:56 | disposition home or self-care (01) ==
LOC: C.ER 06:48
DX: R51 Headache (principal); I12.0 Hypertensive chronic kidney disease with stage 5 chronic kidney disease or end stage renal disease; N18.6 End stage renal disease; Z99.2 Dependence on renal dialysis
CPT/HCPCS: 70450; 71045; 80053; 83735; 85025; 93005; 96365; 96375; 99285; J1100; J1885; J2405; J3475

== ENCOUNTER 2018-02-09 13:54 | Inpatient (IN) | payer OTHER ==
[2018-02-09 13:55] VITALS: BMI 25.2
[2018-02-09 15:16] LABS: BASO # 0.1 K/uL (0.0-0.2); BASO % 0.8 % (0.0-2.0); EOS % 0.6 % (0.0-4.0); LYMPH # 0.7 K/uL (1.0-4.3); LYMPH % 11.1 % (20.0-40.0); MEAN CORPUSCULAR HEMOGLOBIN 31.2 pg (27.0-31.0); MEAN CORPUSCULAR HGB CONC 33.4 g/dL (33.0-37.0); MEAN PLATELET VOLUME 7.4 fL (7.2-11.7); MONO # 0.5 K/uL (0.0-0.8); MONO % 7.8 % (0.0-10.0); NEUT # 5.2 K/uL (1.8-7.0); NEUT % 79.7 % (50.0-75.0); RBC 2.68 Mil/uL (4.40-5.90); RED CELL DISTRIBUTION WIDTH 13.8 % (11.5-14.5); WHITE BLOOD COUNT 6.5 K/uL (4.8-10.8)
[2018-02-09 15:20] LABS: ALB/GLOB RATIO 0.9 (1.0-2.1); ALBUMIN 3.3 g/dL (3.5-5.0); CALCIUM 8.5 mg/dl (8.6-10.4); HEMOGLOBIN 8.3 g/dL (12.0-18.0); MEAN CELL VOLUME 93.4 fL (80.0-94.0)
[2018-02-09 15:25] LABS: INR 1.4; PROTHROMBIN TIME 14.8 SECONDS (9.7-12.2)
--- NOTE | 2018-02-09 15:37 | RAD ---
Date of service: 02/09/2018 PROCEDURE: CHEST RADIOGRAPH, 1 VIEW HISTORY: Abdominal pain COMPARISON: 10/21/2016. FINDINGS: LUNGS: The lungs are well inflated and clear. PLEURA: No pneumothorax or pleural fluid seen. CARDIOVASCULAR: Normal. OSSEOUS STRUCTURES: No significant abnormalities. VISUALIZED UPPER ABDOMEN: Normal. OTHER FINDINGS: None. IMPRESSION: No active pulmonary disease.
[2018-02-09 15:40] LABS: URINE BACTERIA FEW (<OCC); URINE BILIRUBIN NEGATIVE (NEGATIVE); URINE BLOOD 1+ (NEGATIVE); URINE CLARITY Turbid (Clear); URINE COLOR Amber (YELLOW); URINE GLUCOSE (UA) NORMAL (Normal); URINE LEUKOCYTE ESTERASE 3+ Leu/uL (Negative); URINE PROTEIN 2+ mg/dL (NEGATIVE); URINE UROBILINOGEN NORMAL mg/dL (0.2-1.0); WBC CLUMPS FEW /hpf
[2018-02-09 16:01] LABS: TROPONIN I 0.241 ng/mL (0.00-0.120)
--- NOTE | 2018-02-09 16:11 | CT ---
Date of service: 02/09/2018 PROCEDURE: CT Abdomen and Pelvis without intravenous contrast HISTORY: abd pain COMPARISON: None. TECHNIQUE: Contiguous images were obtained from the domes of the diaphragms to the upper thighs without the administration of intravenous contrast. Oral contrast was not administered. Radiation dose: Total exam DLP = 384.8 mGy-cm. This CT exam was performed using one or more of the following dose reduction techniques: Automated exposure control, adjustment of the mA and/or kV according to patient size, and/or use of iterative reconstruction technique. FINDINGS: LOWER THORAX: Cardiomegaly. Coronary arterial and valvular calcifications. Left lower lobe atelectasis/scarring. LIVER: Unremarkable. No gross lesion or ductal dilatation. GALLBLADDER AND BILE DUCTS: Unremarkable. PANCREAS: Unremarkable. No gross lesion or ductal dilatation. SPLEEN: Splenomegaly. ADRENALS: Unremarkable. No mass. KIDNEYS AND URETERS: Prior left nephrectomy. Large right renal staghorn calculus with additional large calculi in the right upper pole, right mid and lower poles. Indwelling ureteral stent with proximal pigtail in an upper pole calyx and relative decompression of upper pole calices. Residual severe mid and lower pole hydronephrosis likely secondary to large staghorn calculus. No solid mass. VASCULATURE: Calcific atherosclerosis. No aortic aneurysm. BOWEL: Prominent amount of retained colonic stool. No obstruction. No gross mural thickening. APPENDIX: Normal appendix. PERITONEUM: Unremarkable. No free fluid. No free air. LYMPH NODES: Unremarkable. No enlarged lymph nodes. BLADDER: Indwelling right double-J ureteral stent with distal pigtail just beyond the ureterovesicular junction. REPRODUCTIVE: Unremarkable. BONES: No acute fracture. OTHER FINDINGS: None. IMPRESSION: Grossly similar appearance of right staghorn calculus with numerous additional right renal calculi and extensive right mid/ lower pole hydronephrosis. Upper pole decompressed around indwelling right double-J ureteral stent.
[2018-02-09] MEDS ORDERED: Piperacillin/Tazobact 3.375 gm 100 ML IVPB STA (16:39)
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
[2018-02-09] MEDS ORDERED: Piperacillin/Tazobact 3.375 gm 100 ML IVPB ONE (16:50)
[2018-02-09] MEDS: Oxycodone/Acetaminophen 5/325 mg Tab PO PRN (19:25)
[2018-02-09] MEDS: oxyCODONE 20 mg ER Tab (oxyCONTIN) PO SCH (22:15)
[2018-02-09] MEDS: Piperacill/Tazo 2.25gm in Dex 2.25 GM/50 ML BAG IVPB SCH (22:18)
[2018-02-10] MEDS: Piperacill/Tazo 2.25gm in Dex 2.25 GM/50 ML BAG IVPB SCH ×4 (00:59→23:00)
[2018-02-10] MEDS: Pantoprazole 40 mg EC Tab PO SCH (09:49)
[2018-02-10] MEDS: oxyCODONE 20 mg ER Tab (oxyCONTIN) PO SCH ×2 (09:50→21:50)
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
[2018-02-10] MEDS: Oxycodone/Acetaminophen 5/325 mg Tab PO PRN ×2 (11:04→22:47)
--- NOTE | 2018-02-10 23:38 | HP ---
Copied To: Mc Miner MD Attending MD: Mc Miner MD HISTORY OF PRESENT ILLNESS: The patient is a 47-year-old male who has a history of end-stage renal disease, on hemodialysis since 06/2013. The patient stated that his dialysis is related to renal stones. The patient has right ureteral catheter for sometime. He presents because of right flank pain. The patient denies any recent hematuria. SOCIAL HISTORY: The patient is a smoker and drinker. MEDICATIONS: Ferrous sulfate one tablet twice a day, Flomax 0.4 mg once a day, subcutaneous heparin 5000 units every 12 hours, OxyContin 20 mg twice a day, oxycodone two tablets every 4 hours p.r.n. for moderate pain, Procrit 10,000 units on Monday, Monday and Monday, Protonix 40 mg once a day, Xanax 0.5 mg twice a day, Zosyn 2.25 g intravenously every 8 hours. PHYSICAL EXAMINATION: GENERAL: The patient is a middle-aged male who does not appear to be in acute distress. VITAL SIGNS: Blood pressure 97/60, heart rate 74, temperature 98.1, respirations 20. HEENT: Pale conjunctivae. CHEST: Clear. HEART: S1 and S2 are regular. EXTREMITIES: Trace leg edema. LABORATORY DATA: SMA-7: Sodium 137, potassium 3.5, chloride 94, CO2 of 31, glucose 98, BUN 27, creatinine 7.3. Troponins 0.241, 0.248 and 0.208. Lipase is within normal limits. INR is 1.4, PTT 36. Hemoglobin and hematocrit 8.3 and 25, white count and platelet counts are within normal limits. EKG revealed normal sinus rhythm. CT scan of the abdomen and pelvis with p.o. and IV contrast, grossly similar appearance of the right staghorn calculus with numerous additional right renal calculi and extensive right mid to lower pole hydronephrosis, upper pole decompressed around indwelling right double-J ureteral stent. ASSESSMENT: 1. Borderline troponin elevation, unlikely represents acute myocardial injury. The patient is chest pain free and electrocardiogram is completely normal. 2. End-stage renal disease, on hemodialysis. 3. Right staghorn calculus with extensive right mid/lower pole hydronephrosis. 4. Anemia. PLAN: I will continue Feosol, Flomax, Procrit, oral Protonix, and IV Zosyn. Start aspirin 81 mg once a day, Coreg 3.125 mg twice a day. Transfer the patient to telemetry. Obtain an echocardiographic study, D-Dimer, and urine for drug screen. Mc Miner MD
[2018-02-11] MEDS: Oxycodone/Acetaminophen 5/325 mg Tab PO PRN (05:07)
[2018-02-11] MEDS: Piperacill/Tazo 2.25gm in Dex 2.25 GM/50 ML BAG IVPB SCH ×3 (08:45→23:42)
[2018-02-11] MEDS: Pantoprazole 40 mg EC Tab PO SCH (10:35)
[2018-02-11] MEDS: oxyCODONE 20 mg ER Tab (oxyCONTIN) PO SCH ×2 (10:35→22:28)
[2018-02-11] MEDS ORDERED: Vancomycin 1 gm/NS 200 ml 1 GM/200 ML BAG IVPB STA (13:56)
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
[2018-02-12] MEDS: Piperacill/Tazo 2.25gm in Dex 2.25 GM/50 ML BAG IVPB SCH ×2 (07:56→16:49)
[2018-02-12] MEDS ORDERED: Pneumococcal 23-Valent Vaccine IM ONE (10:00)
[2018-02-12] MEDS: Pantoprazole 40 mg EC Tab PO SCH (10:11)
[2018-02-12] MEDS: oxyCODONE 20 mg ER Tab (oxyCONTIN) PO SCH ×2 (10:12→21:09)
--- NOTE | 2018-02-12 10:28 | CP.PCM.PN ---
Subjective - Date & Time of Evaluation Date of Evaluation: 02/12/18 Time of Evaluation: 10:25 - Subjective Subjective: same R CVAT afebrile, needs stent changed Objective - Vital Signs/Intake and Output Vital Signs (last 24 hours): Temp Pulse Resp BP Pulse Ox 98.9 F 82 20 103/39 L 96 02/12/18 07:00 02/12/18 07:55 02/12/18 07:00 02/12/18 07:00 02/12/18 07:00 Intake and Output: 02/12/18 02/12/18 06:59 18:59 Intake Total 800 Balance 800 - Medications Medications: Current Medications Acetaminophen (Tylenol 325mg Tab) 650 mg PO Q6 PRN PRN Reason: Fever >100.4 F Alprazolam (Xanax) 0.5 mg PO Q12H PRN PRN Reason: Anxiety Last Admin: 02/10/18 08:34 Dose: 0.5 mg Aspirin (Aspirin Chewable) 81 mg PO DAILY [facility] Last Admin: 02/12/18 10:11 Dose: 81 mg Carvedilol (Coreg) 3.125 mg PO BID [facility] Last Admin: 02/12/18 10:10 Dose: 3.125 mg Epoetin Zain (Procrit) 10,000 [place] [facility] [place]ous Sulfate (Feosol) 325 mg PO BID [facility] Last Admin: 02/12/18 10:10 Dose: 325 mg Heparin Sodium (Porcine) (Heparin) 5,000 units SC Q12 [facility] Last Admin: 02/12/18 10:16 Dose: Not Given Piperacillin Sod/Tazobactam Sod (Zosyn 2.25 Gm Iv Premix) 2.25 gm in 50 mls @ 100 mls/hr IVPB Q8H [facility] PRN Reason: Protocol Last Admin: 02/12/18 07:56 Dose: 100 mls/hr Vancomycin/Sodium Chloride (Vancomycin 1 Gm/Ns 200 Ml) 1 gm in 200 mls @ 133 mls/hr IVPB [facility] [place]N Reason: Protocol Stop: 02/17/18 16:01 Oxycodone HCl (Oxycontin Extended Release Tab) 20 mg PO Q12 [facility] Last Admin: 02/12/18 10:12 Dose: 20 mg Oxycodone/Acetaminophen (Percocet 5/325 Mg Tab) 2 tab PO Q4H PRN PRN Reason: Pain, moderate (4-7) Stop: 02/12/18 17:50 Last Admin: 02/11/18 05:07 Dose: 2 tab Pantoprazole Sodium (Protonix Ec Tab) 40 mg PO DAILY [facility] Last Admin: 02/12/18 10:11 Dose: 40 mg Sevelamer Carbonate (Renvela) 1,600 mg PO TID [facility] Last Admin: 02/12/18 10:10 Dose: 1,600 mg Tamsulosin HCl (Flomax) 0.4 mg PO DAILY [facility] Last Admin: 02/12/18 10:11 Dose: 0.4 mg - Labs Labs: 02/09/18 15:05 02/09/18 15:05 PT 14.8 SECONDS (9.7-12.2) H 02/09/18 15:05 INR 1.4 02/09/18 15:05 APTT 36 SECONDS (21-34) H 02/09/18 15:05 - Constitutional Appears: No Acute Distress, Chronically Ill - Head Exam Head Exam: ATRAUMATIC, NORMAL INSPECTION - Eye Exam Eye Exam: EOMI, Normal appearance - Neck Exam Neck Exam: Normal Inspection. absent: Tenderness - Respiratory Exam Respiratory Exam: Clear to Ausculation Bilateral, NORMAL BREATHING PATTERN - Cardiovascular Exam Cardiovascular Exam: REGULAR RHYTHM, +S1 - GI/Abdominal Exam GI & Abdominal Exam: Soft, Tenderness - Extremities Exam Extremities Exam: Normal Inspection. absent: Tenderness - Neurological Exam Neurological Exam: Awake, CN II-XII Intact - Skin Skin Exam: Dry, Warm Assessment and Plan (1) Chronic pyelonephritis Status: Acute (2) ESRD (end stage renal disease) Status: Acute (3) Xanthogranulomatous pyelonephritis Status: Acute - Assessment and Plan (Free Text) Plan: dilaysis today, MWF Abs as per medicone needs stent change
[2018-02-12 11:05] LABS: URINE BACTERIA OCC (<OCC); URINE BILIRUBIN NEGATIVE (NEGATIVE); URINE BLOOD 3+ (NEGATIVE); URINE CLARITY Hazy (Clear); URINE COLOR Yellow (YELLOW); URINE GLUCOSE (UA) NORMAL (Normal); URINE LEUKOCYTE ESTERASE 3+ Leu/uL (Negative); URINE PROTEIN 2+ mg/dL (NEGATIVE); URINE UROBILINOGEN NORMAL mg/dL (0.2-1.0); WBC CLUMPS MANY /hpf
[2018-02-12 12:07] LABS: PHENCYCLIDINE, UR NEGATIVE (NEGATIVE)
[2018-02-12 12:36] LABS: BARBITURATES, UR NEGATIVE (NEGATIVE)
[2018-02-12 12:41] LABS: BENZODIAZEPINES, UR POSITIVE (NEGATIVE); OPIATES, UR POSITIVE (NEGATIVE)
[2018-02-12] MEDS: Epoetin Alfa 10,000 unit/ml Dialysis IV SCH (15:57)
[2018-02-12] MEDS: Oxycodone/Acetaminophen 5/325 mg Tab PO PRN ×3 (16:47→22:50)
[2018-02-12] MEDS: Vancomycin 1 gm/NS 200 ml 1 GM/200 ML BAG IVPB SCH (16:50)
[2018-02-12] MEDS ORDERED: oxyCODONE 20 mg ER Tab (oxyCONTIN) PO SCH (18:22)
--- NOTE | 2018-02-12 19:04 | PN ---
Copied To: Mc Miner MD Attending MD: Mc Miner MD DATE: 02/12/2018 SUBJECTIVE: The patient denies chest pain. He is experiencing right flank discomfort. PHYSICAL EXAMINATION: VITAL SIGNS: Blood pressure 103/39, heart rate is 77, temperature 98.9, and respirations 20. HEENT: Pale conjunctivae. CHEST: Clear. HEART: S1 and S2 regular. EXTREMITIES: No edema. LABORATORY DATA: Two sets of blood cultures are positive for gram-positive cocci in chains. ASSESSMENT: 1. bacteremia. 2. History of nephrolithiasis and right ureteral stent. 3. End-stage renal disease, on hemodialysis. 4. Anemia. RECOMMENDATIONS: Continue aspirin 81 mg once a day, Coreg 3.125 mg twice a day, Renvela 1600 mg t.i.d., IV vancomycin Monday, Monday, and Monday, IV Zosyn 2.25 g intravenously every 8 hours. I will request an echocardiographic study. Mc Miner MD
[2018-02-13] MEDS: Piperacill/Tazo 2.25gm in Dex 2.25 GM/50 ML BAG IVPB SCH ×4 (00:02→23:57)
[2018-02-13] MEDS: Oxycodone/Acetaminophen 5/325 mg Tab PO PRN ×2 (08:47→16:24)
[2018-02-13] MEDS: oxyCODONE 20 mg ER Tab (oxyCONTIN) PO SCH ×2 (09:10→21:51)
[2018-02-13] MEDS: Pantoprazole 40 mg EC Tab PO SCH (09:11)
--- NOTE | 2018-02-13 10:59 | CP.PCM.PN ---
Subjective - Date & Time of Evaluation Date of Evaluation: 02/13/18 Time of Evaluation: 10:58 - Subjective Subjective: seen and examined in pain lower back no f/c/n/v/d/sob/dizziness/cough Objective - Vital Signs/Intake and Output Vital Signs (last 24 hours): Temp Pulse Resp BP Pulse Ox 98.2 F 79 20 103/46 L 96 02/13/18 07:00 02/13/18 08:45 02/13/18 07:00 02/13/18 07:00 02/13/18 07:00 Intake and Output: 02/13/18 02/13/18 06:59 18:59 Intake Total 550 Balance 550 - Medications Medications: Current Medications Acetaminophen (Tylenol 325mg Tab) 650 mg PO Q6 PRN PRN Reason: Fever >100.4 F Alprazolam (Xanax) 0.5 mg PO Q12H PRN PRN Reason: Anxiety Last Admin: 02/13/18 09:11 Dose: 0.5 mg Aspirin (Aspirin Chewable) 81 mg PO DAILY [facility] Last Admin: 02/13/18 09:09 Dose: 81 mg Carvedilol (Coreg) 3.125 mg PO BID [facility] Last Admin: 02/13/18 09:10 Dose: 3.125 mg Epoetin Zain (Procrit) 10,000 [place] [facility] [place] Admin: 02/12/18 15:57 Dose: 10,000 unit Ferrous Sulfate (Feosol) 325 mg PO BID [facility] Last Admin: 02/13/18 09:09 Dose: 325 mg Heparin Sodium (Porcine) (Heparin) 5,000 units SC Q12 [facility] Last Admin: 02/13/18 09:19 Dose: Not Given Piperacillin Sod/Tazobactam Sod (Zosyn 2.25 Gm Iv Premix) 2.25 gm in 50 mls @ 100 mls/hr IVPB Q8H [facility] PRN Reason: Protocol Last Admin: 02/13/18 08:48 Dose: 100 mls/hr Vancomycin/Sodium Chloride (Vancomycin 1 Gm/Ns 200 Ml) 1 gm in 200 mls @ 133 mls/hr IVPB MWF [facility] PRN Reason: Protocol Stop: 02/17/18 16:01 Last Admin: 02/12/18 16:50 Dose: 133 mls/hr Oxycodone HCl (Oxycontin Extended Release Tab) 20 mg PO Q12 [facility] Last Admin: 02/13/18 09:10 Dose: 20 mg Oxycodone/Acetaminophen (Percocet 5/325 Mg Tab) 2 tab PO Q4H PRN PRN Reason: Pain, moderate (4-7) Stop: 02/15/18 18:29 Last Admin: 02/13/18 08:47 Dose: 2 tab Pantoprazole Sodium (Protonix Ec Tab) 40 mg PO DAILY [facility] Last Admin: 02/13/18 09:11 Dose: 40 mg Sevelamer Carbonate (Renvela) 1,600 mg PO TID [facility] Last Admin: 02/13/18 09:09 Dose: 1,600 mg Tamsulosin HCl (Flomax) 0.4 mg PO DAILY [facility] Last Admin: 02/13/18 09:09 Dose: 0.4 mg - Labs Labs: 02/09/18 15:05 02/09/18 15:05 PT 14.8 SECONDS (9.7-12.2) H 02/09/18 15:05 INR 1.4 02/09/18 15:05 APTT 36 SECONDS (21-34) H 02/09/18 15:05 - Constitutional Appears: No Acute Distress, Chronically Ill - Head Exam Head Exam: NORMAL INSPECTION, NORMOCEPHALIC - Eye Exam Eye Exam: Normal appearance, PERRL - ENT Exam ENT Exam: Mucous Membranes Moist, Normal Exam - Neck Exam Neck Exam: Full ROM, Normal Inspection - Respiratory Exam Respiratory Exam: Clear to Ausculation Bilateral, NORMAL BREATHING PATTERN - Cardiovascular Exam Cardiovascular Exam: REGULAR RHYTHM, RRR - GI/Abdominal Exam GI & Abdominal Exam: Soft, Normal Bowel Sounds - Extremities Exam Extremities Exam: Normal Inspection (lue avf w/ thrill) - Back Exam Back Exam: CVA tenderness (L), NORMAL INSPECTION - Neurological Exam Neurological Exam: Alert, Awake, Oriented x3 - Psychiatric Exam Psychiatric exam: Normal Affect, Normal Mood - Skin Skin Exam: Dry, Intact Assessment and Plan (1) Bacteremia Status: Acute (2) Ureteral calculi Status: Acute (3) Chronic pyelonephritis Status: Acute (4) ESRD (end stage renal disease) Status: Acute - Assessment and Plan (Free Text) Assessment: urology evaluation / stent change hd mwf antibiotics per ID declined hd today. f/u bmp.
[2018-02-13 11:59] LABS: CALCIUM 8.8 mg/dl (8.6-10.4)
--- NOTE | 2018-02-13 16:22 | PCM.URO ---
Urology Progress Note - Objective Lab Studies: Reviewed (plans: cysto stent change 02/15) Lab Results Last 24 Hours: Laboratory Results - last 24 hr 02/13/18 11:22 Sodium 136 Potassium 4.9 Chloride 97 L Carbon Dioxide 27 Anion Gap 17 BUN 61 H Creatinine 11.6 H* D Est GFR ( Amer) 6 Est GFR (Non-Af Amer) 5 Random Glucose 140 H Calcium 8.8 Intake & Output: Intake & Output 02/12/18 02/13/18 02/13/18 18:59 06:59 18:59 Intake Total 160 550 600 Balance 160 550 600 Weight 91 lb 14.4 oz Intake: Intake, IV Amount 160 310 Right Forearm 160 310 Oral 240 600 Other: # Voids Urine, Voided 1 Vital Signs: Vital Signs - 24 hr 02/13/18 02/13/18 02/13/18 00:00 05:34 07:00 Temperature 98.7 F 98.2 F Pulse Rate 73 76 75 Respiratory 20 20 Rate Blood Pressure 98/46 L 103/46 L O2 Sat by Pulse 96 Oximetry 02/13/18 02/13/18 08:45 15:20 Temperature 97.2 F L Pulse Rate 79 70 Respiratory 20 Rate Blood Pressure 113/48 L O2 Sat by Pulse 96 Oximetry
--- NOTE | 2018-02-13 20:51 | PN ---
Copied To: Mc Miner MD Attending MD: Mc Miner MD DATE: 02/13/2018 SUBJECTIVE: The patient underwent hemodialysis today. He denies any chest pain. PHYSICAL EXAMINATION: VITAL SIGNS: Blood pressure 103/46, heart rate 75, temperature 98.2, respirations 20. HEENT: Normocephalic. CHEST: Clear. HEART: S1 and S2 regular. EXTREMITIES: No edema. LABORATORY DATA: Blood cultures positive for Streptococcus species. ASSESSMENT: 1. Streptococcus bacteremia. 2. Nephrolithiasis with history of right ureteric stent. 3. End-stage renal disease on hemodialysis. RECOMMENDATIONS: Continue current aspirin, Coreg, subcutaneous heparin, IV vancomycin, and IV Zosyn. I will review echocardiographic study performed today. Mc Miner MD
--- NOTE | 2018-02-13 21:31 | CP.PCM.PN ---
Objective - Vital Signs/Intake and Output Vital Signs (last 24 hours): Temp Pulse Resp BP Pulse Ox 97.2 F L 73 20 113/46 L 96 02/13/18 15:20 02/13/18 17:49 02/13/18 17:49 02/13/18 17:49 02/13/18 15:20 Intake and Output: 02/13/18 02/14/18 18:59 06:59 Intake Total 600 Balance 600 - Medications Medications: Current Medications Acetaminophen (Tylenol 325mg Tab) 650 mg PO Q6 PRN PRN Reason: Fever >100.4 F Alprazolam (Xanax) 0.5 mg PO Q12H PRN PRN Reason: Anxiety Last Admin: 02/13/18 09:11 Dose: 0.5 mg Aspirin (Aspirin Chewable) 81 mg PO DAILY [facility] Last Admin: 02/13/18 09:09 Dose: 81 mg Carvedilol (Coreg) 3.125 mg PO BID [facility] Last Admin: 02/13/18 17:48 Dose: 3.125 mg Epoetin Zain (Procrit) 10,000 unit IV [facility] Last Admin: 02/12/18 15:57 Dose: 10,000 unit Ferrous Sulfate (Feosol) 325 mg PO BID [facility] Last Admin: 02/13/18 17:42 Dose: 325 mg Heparin Sodium (Porcine) (Heparin) 5,000 units SC Q12 [facility] Last Admin: 02/13/18 09:19 Dose: Not Given Piperacillin Sod/Tazobactam Sod (Zosyn 2.25 Gm Iv Premix) 2.25 gm in 50 mls @ 100 mls/hr IVPB Q8H [facility] PRN Reason: Protocol Last Admin: 02/13/18 16:19 Dose: 100 mls/hr Vancomycin/Sodium Chloride (Vancomycin 1 Gm/Ns 200 Ml) 1 gm in 200 mls @ 133 mls/hr IVPB MWF [facility] PRN Reason: Protocol Stop: 02/17/18 16:01 Last Admin: 02/12/18 16:50 Dose: 133 mls/hr Oxycodone HCl (Oxycontin Extended Release Tab) 20 mg PO Q12 [facility] Last Admin: 02/13/18 09:10 Dose: 20 mg Oxycodone/Acetaminophen (Percocet 5/325 Mg Tab) 2 tab PO Q4H PRN PRN Reason: Pain, moderate (4-7) Stop: 02/15/18 18:29 Last Admin: 02/13/18 16:24 Dose: 2 tab Pantoprazole Sodium (Protonix Ec Tab) 40 mg PO DAILY [facility] Last Admin: 02/13/18 09:11 Dose: 40 mg Sevelamer Carbonate (Renvela) 1,600 mg PO TID [facility] Last Admin: 02/13/18 17:42 Dose: 1,600 mg Tamsulosin HCl (Flomax) 0.4 mg PO DAILY [facility] Last Admin: 02/13/18 09:09 Dose: 0.4 mg - Labs Labs: 02/09/18 15:05 02/13/18 11:22 PT 14.8 SECONDS (9.7-12.2) H 02/09/18 15:05 INR 1.4 02/09/18 15:05 APTT 36 SECONDS (21-34) H 02/09/18 15:05
--- NOTE | 2018-02-13 22:21 | CARD ---
APPROVED REPORT Date of service: 02/09/2018 EKG Measurement Heart [id number] <Conclusion> Normal sinus rhythm Normal ECG
--- NOTE | 2018-02-13 22:42 | CP.PCM.PN ---
Subjective - Date & Time of Evaluation Date of Evaluation: 02/13/18 Time of Evaluation: 15:00 - Subjective Subjective: dictated Objective - Vital Signs/Intake and Output Vital Signs (last 24 hours): Temp Pulse Resp BP Pulse Ox 98.2 F 70 20 110/48 L 96 02/13/18 21:46 02/13/18 21:46 02/13/18 21:46 02/13/18 21:46 02/13/18 21:46 Intake and Output: 02/13/18 02/14/18 18:59 06:59 Intake Total 600 410 Balance 600 410 - Medications Medications: Current Medications Acetaminophen (Tylenol 325mg Tab) 650 mg PO Q6 PRN PRN Reason: Fever >100.4 F Alprazolam (Xanax) 0.5 mg PO Q12H PRN PRN Reason: Anxiety Last Admin: 02/13/18 09:11 Dose: 0.5 mg Aspirin (Aspirin Chewable) 81 mg PO DAILY [facility] Last Admin: 02/13/18 09:09 Dose: 81 mg Carvedilol (Coreg) 3.125 mg PO BID [facility] Last Admin: 02/13/18 17:48 Dose: 3.125 mg Epoetin Zain (Procrit) 10,000 [place] [facility] [place] Last Admin: 02/12/18 15:57 Dose: 10,000 unit Ferrous Sulfate (Feosol) 325 mg PO BID [facility] Last Admin: 02/13/18 17:42 Dose: 325 mg Heparin Sodium (Porcine) (Heparin) 5,000 units SC Q12 [facility] Last Admin: 02/13/18 09:19 Dose: Not Given Piperacillin Sod/Tazobactam Sod (Zosyn 2.25 Gm Iv Premix) 2.25 gm in 50 mls @ 100 mls/hr IVPB Q8H [facility] PRN Reason: Protocol Last Admin: 02/13/18 16:19 Dose: 100 mls/hr Vancomycin/Sodium Chloride (Vancomycin 1 Gm/Ns 200 Ml) 1 gm in 200 mls @ 133 mls/hr IVPB MWF [facility] PRN Reason: Protocol Stop: 02/17/18 16:01 Last Admin: 02/12/18 16:50 Dose: 133 mls/hr Oxycodone HCl (Oxycontin Extended Release Tab) 20 mg PO Q12 [facility] Last Admin: 02/13/18 21:51 Dose: 20 mg Oxycodone/Acetaminophen (Percocet 5/325 Mg Tab) 2 tab PO Q4H PRN PRN Reason: Pain, moderate (4-7) Stop: 02/15/18 18:29 Last Admin: 02/13/18 16:24 Dose: 2 tab Pantoprazole Sodium (Protonix Ec Tab) 40 mg PO DAILY [facility] Last Admin: 02/13/18 09:11 Dose: 40 mg Sevelamer Carbonate (Renvela) 1,600 mg PO TID [facility] Last Admin: 02/13/18 17:42 Dose: 1,600 mg Tamsulosin HCl (Flomax) 0.4 mg PO DAILY [facility] Last Admin: 02/13/18 09:09 Dose: 0.4 mg - Labs Labs: 02/09/18 15:05 02/13/18 11:22 PT 14.8 SECONDS (9.7-12.2) H 02/09/18 15:05 INR 1.4 02/09/18 15:05 APTT 36 SECONDS (21-34) H 02/09/18 15:05
--- NOTE | 2018-02-14 03:44 | PN ---
Copied To: Mikel Marc MD Attending MD: Mikel Marc MD DATE: 02/13/2018 SUBJECTIVE: The patient has urine and blood cultures which are contaminant, pending sensitivity. Urine culture is mixed. Afebrile, on antibiotics. PHYSICAL EXAMINATION: VITAL SIGNS: BP , pulse 70, respiratory rate 20, temperature 98.2. LUNGS: Clear. CARDIOVASCULAR SYSTEM: S1, S2 are regular. ASSESSMENT: 1. Acute pyelonephritis. 2. Nephrolithiasis. 3. . PLAN: Continue current medications. Mikel Marc MD
--- NOTE | 2018-02-14 03:56 | PN ---
Copied To: Antonella Sexton MD Attending MD: Antonella Sexton MD DATE: 02/13/2018 SUBJECTIVE: The patient remains awake and alert. He is a dialysis patient. He complains of pain, and he is supposed to go for cystoscopy on 09/15, and his cultures have been positive. He went downstairs to get an echocardiogram. OBJECTIVE: VITAL SIGNS: He is afebrile, pulse 70, blood pressure 110/48, respirations are 18. HEENT: Head is atraumatic. NECK: Supple. LUNGS: Clear. HEART: S1, S2 regular. ABDOMEN: Mild abdominal pain and CVA tenderness. EXTREMITIES: Have no edema. His labs came out. Blood cultures, Peptostreptococcus which is an anaerobe, and one of the other culture has enterococcus, not Enterococcus faecalis. He is on vancomycin and Zosyn at this time. We will continue the same medications, get an echocardiogram done. He is a dialysis patient and has fistula in the left arm, and he has stent he says since August and stones, so he has a complicated UTI with hydronephrosis, and he is a dialysis patient. We will follow and will need IV antibiotics at this time for bacteremia. I am not sure why he had Peptostreptococcus anaerobe, along with he is developing an abscess in the renal area, needs to be clarified as he does have only one kidney now, and he is a dialysis patient. Antonella Sexton MD
--- NOTE | 2018-02-14 08:05 | CARD ---
APPROVED REPORT Date of service: 02/13/2018 EXAM: Two-dimensional and M-mode echocardiogram with Doppler and color Doppler. Other Information Quality : GoodRhythm : INDICATION Infection:Rule out subacute bacterial endocarditis Pulmonary Embolism RISK FACTORS Hypertension 2D DIMENSIONS IVSd1.2 (0.7-1.1cm)LVDd5.8 (3.9-5.9cm) LVOT Diameter2.2 (1.8-2.4cm)PWd1.2 (0.7-1.1cm) LVDs3.8 (2.5-4.0cm)FS (%) 35.1 % LVEF (%)63.6 (>50%) M-Mode DIMENSIONS Left Atrium (MM)5.30 (2.5-4.0cm)IVSd1.04 (0.7-1.1cm) Aortic Root3.55 (2.2-3.7cm)LVDd6.36 (4.0-5.6cm) Aortic Cusp Exc.2.17 (1.5-2.0cm)PWd0.95 (0.7-1.1cm) FS (%) 40 %LVDs3.80 (2.0-3.8cm) LVEF (%)70 (>50%) Aortic Valve AoV Peak Ergkwimo648.7cm/sAoV VTI59.3cmAO Peak GR.32mmHg LVOT Peak Savdsybn347.5cm/sLVOT VTI42.76cmAO Mean GR.18mmHg KENNETH (VMAX)2.13bn4FGE (VTI)2.79cm2 Mitral Valve MV E Bmcwgogw855.2cm/sMV A Agooukdx391.1cm/sE/A ratio1.2 PISA0.69 cm TDI E/Lateral E'0.0E/Medial E'0.0 Tricuspid Valve TR Peak Zsrylmzn233fq/sTR Peak Gr.91naMdSTNT63muNy <Conclusion> Left ventricle: thickness:upper limit of normal; size: normal; overall ejection fraction: 65%: diastolic filling pressures: normal Mitral valve: annulus: normal: leaflets: calcified thickening with a 2 x1 mm linear mobile mass attached to the posterior mitral lealet at the coaption point: excursion: normal; no significant trans-mitral gradient: moderate posteriorly directed incompetence: left atrium: normal Aortic valve: leaflets: calcified thickening with a sessile mass atached to the ventricular surface of the non coronary cusp excursion: restricted; 33mmHg trans-aortic gradient: mild to moderate incompetence: AV area [id number] root: normal Right sided Structures: Pulmonary valve: normal; no significant incompetence; Tricuspid valve: normal; moderate incompetence: Intra-cardiac hemodynamics: pulmonary systolic pressures:70mmHg; central venous pressures: normal No pericardial effusion
[2018-02-14] MEDS: Oxycodone/Acetaminophen 5/325 mg Tab PO PRN ×2 (08:30→13:58)
[2018-02-14] MEDS: Pantoprazole 40 mg EC Tab PO SCH (10:20)
[2018-02-14] MEDS: oxyCODONE 20 mg ER Tab (oxyCONTIN) PO SCH ×2 (10:21→22:54)
[2018-02-14] MEDS: Piperacill/Tazo 2.25gm in Dex 2.25 GM/50 ML BAG IVPB SCH ×3 (10:24→21:35)
--- NOTE | 2018-02-14 13:17 | CP.PCM.PN ---
Subjective - Date & Time of Evaluation Date of Evaluation: 02/14/18 Time of Evaluation: 13:15 - Subjective Subjective: Alert; same pains + blood cultures noted for stent change in AM has been dizzy, no fevers or chills, no n,v Objective - Vital Signs/Intake and Output Vital Signs (last 24 hours): Temp Pulse Resp BP Pulse Ox 98.5 F 73 20 109/54 L 95 02/14/18 07:00 02/14/18 07:00 02/14/18 07:00 02/14/18 07:00 02/14/18 07:00 Intake and Output: 02/14/18 02/14/18 06:59 18:59 Intake Total 470 Balance 470 - Medications Medications: Current Medications Acetaminophen (Tylenol 325mg Tab) 650 mg PO Q6 PRN PRN Reason: Fever >100.4 F Alprazolam (Xanax) 0.5 mg PO Q12H PRN PRN Reason: Anxiety Last Admin: 02/14/18 10:20 Dose: 0.5 mg Aspirin (Aspirin Chewable) 81 mg PO DAILY [facility] Last Admin: 02/14/18 10:20 Dose: 81 mg Carvedilol (Coreg) 3.125 mg PO BID [facility] Last Admin: 02/14/18 10:22 Dose: Not Given Epoetin Zain (Procrit) 10,000 unit IV MWF [facility] Last Admin: 02/12/18 15:57 Dose: 10,000 unit Ferrous Sulfate (Feosol) 325 mg PO BID [facility] Last Admin: 02/14/18 10:20 Dose: 325 mg Heparin Sodium (Porcine) (Heparin) 5,000 units SC Q12 [facility] Last Admin: 02/14/18 10:22 Dose: Not Given Vancomycin/Sodium Chloride (Vancomycin 1 Gm/Ns 200 Ml) 1 gm in 200 mls @ 133 mls/hr IVPB MWF [facility] PRN Reason: Protocol Stop: 02/17/18 16:01 Last Admin: 02/12/18 16:50 Dose: 133 mls/hr Piperacillin Sod/Tazobactam Sod (Zosyn 2.25 Gm Iv Premix) 2.25 gm in 50 mls @ 100 mls/hr IVPB Q8H [facility] PRN Reason: Protocol Last Admin: 02/14/18 10:24 Dose: 100 mls/hr Oxycodone HCl (Oxycontin Extended Release Tab) 20 mg PO Q12 [facility] Last Admin: 02/14/18 10:21 Dose: 20 mg Oxycodone/Acetaminophen (Percocet 5/325 Mg Tab) 2 tab PO Q4H PRN PRN Reason: Pain, moderate (4-7) Stop: 02/15/18 18:29 Last Admin: 02/14/18 08:30 Dose: 2 tab Pantoprazole Sodium (Protonix Ec Tab) 40 mg PO DAILY [facility] Last Admin: 02/14/18 10:20 Dose: 40 mg Sevelamer Carbonate (Renvela) 1,600 mg PO TID [facility] Last Admin: 02/14/18 13:03 Dose: Not Given Tamsulosin HCl (Flomax) 0.4 mg PO DAILY [facility] Last Admin: 02/14/18 10:20 Dose: 0.4 mg - Labs Labs: 02/09/18 15:05 02/13/18 11:22 PT 14.8 SECONDS (9.7-12.2) H 02/09/18 15:05 INR 1.4 02/09/18 15:05 APTT 36 SECONDS (21-34) H 02/09/18 15:05 - Constitutional Appears: No Acute Distress, Confused, Chronically Ill - Head Exam Head Exam: ATRAUMATIC, NORMAL INSPECTION - Eye Exam Eye Exam: EOMI, Normal appearance - Neck Exam Neck Exam: Normal Inspection. absent: Tenderness - Respiratory Exam Respiratory Exam: Clear to Ausculation Bilateral, NORMAL BREATHING PATTERN - Cardiovascular Exam Cardiovascular Exam: REGULAR RHYTHM, +S1 - GI/Abdominal Exam GI & Abdominal Exam: Soft, Tenderness - Extremities Exam Extremities Exam: Normal Inspection. absent: Tenderness - Neurological Exam Neurological Exam: Alert, CN II-XII Intact - Skin Skin Exam: Dry, Warm Assessment and Plan (1) Chronic pyelonephritis Status: Acute (2) ESRD (end stage renal disease) Status: Acute (3) Xanthogranulomatous pyelonephritis Status: Acute - Assessment and Plan (Free Text) Plan: Dialysis today; encourage compliance IV ABs as per medicine decrease carvedilol dose stent change in AM
[2018-02-14 15:22] LABS: HEMOGLOBIN 7.7 g/dL (12.0-18.0); MEAN CORPUSCULAR HEMOGLOBIN 31.7 pg (27.0-31.0); MEAN CORPUSCULAR HGB CONC 33.2 g/dL (33.0-37.0); MEAN PLATELET VOLUME 8.1 fL (7.2-11.7); RBC 2.43 Mil/uL (4.40-5.90); RED CELL DISTRIBUTION WIDTH 13.8 % (11.5-14.5); WHITE BLOOD COUNT 5.8 K/uL (4.8-10.8)
[2018-02-14 15:31] LABS: MEAN CELL VOLUME 95.4 fL (80.0-94.0)
[2018-02-14 16:19] LABS: ALBUMIN 3.3 g/dL (3.5-5.0)
[2018-02-14] MEDS: Epoetin Alfa 10,000 unit/ml Dialysis IV SCH (16:51)
[2018-02-14] MEDS: Vancomycin 1 gm/NS 200 ml 1 GM/200 ML BAG IVPB SCH (19:39)
--- NOTE | 2018-02-14 21:25 | CP.PCM.PN ---
Subjective - Date & Time of Evaluation Date of Evaluation: 02/14/18 Time of Evaluation: 15:25 - Subjective Subjective: dictated Objective - Vital Signs/Intake and Output Vital Signs (last 24 hours): Temp Pulse Resp BP Pulse Ox 98.2 F 71 20 109/53 L 96 02/14/18 18:00 02/14/18 18:00 02/14/18 18:00 02/14/18 18:00 02/14/18 18:00 - Medications Medications: Current Medications Acetaminophen (Tylenol 325mg Tab) 650 mg PO Q6 PRN PRN Reason: Fever >100.4 F Alprazolam (Xanax) 0.5 mg PO Q12H PRN PRN Reason: Anxiety Last Admin: 02/14/18 10:20 Dose: 0.5 mg Aspirin (Aspirin Chewable) 81 mg PO DAILY [facility] Last Admin: 02/14/18 10:20 Dose: 81 mg Carvedilol (Coreg) 3.125 mg PO DAILY [facility] Epoetin Zain (Procrit) 10,000 unit IV MWF [facility] Last Admin: 02/14/18 16:51 Dose: 10,000 unit Ferrous Sulfate (Feosol) 325 mg PO BID [facility] Last Admin: 02/14/18 19:38 Dose: 325 mg Heparin Sodium (Porcine) (Heparin) 5,000 units SC Q12 [facility] Last Admin: 02/14/18 10:22 Dose: Not Given Vancomycin/Sodium Chloride (Vancomycin 1 Gm/Ns 200 Ml) 1 gm in 200 mls @ 133 mls/hr IVPB MWF [facility] PRN Reason: Protocol Stop: 02/17/18 16:01 Last Admin: 02/14/18 19:39 Dose: 133 mls/hr Piperacillin Sod/Tazobactam Sod (Zosyn 2.25 Gm Iv Premix) 2.25 gm in 50 mls @ 100 mls/hr IVPB Q8H [facility] PRN Reason: Protocol Last Admin: 02/14/18 10:24 Dose: 100 mls/hr Oxycodone HCl (Oxycontin Extended Release Tab) 20 mg PO Q12 [facility] Last Admin: 02/14/18 10:21 Dose: 20 mg Oxycodone/Acetaminophen (Percocet 5/325 Mg Tab) 2 tab PO Q4H PRN PRN Reason: Pain, moderate (4-7) Stop: 02/15/18 18:29 Last Admin: 02/14/18 13:58 Dose: 2 tab Pantoprazole Sodium (Protonix Ec Tab) 40 mg PO DAILY [facility] Last Admin: 02/14/18 10:20 Dose: 40 mg Sevelamer Carbonate (Renvela) 1,600 mg PO TID [facility] Last Admin: 02/14/18 19:39 Dose: 1,600 mg Tamsulosin HCl (Flomax) 0.4 mg PO DAILY [facility] Last Admin: 02/14/18 10:20 Dose: 0.4 mg - Labs Labs: 02/14/18 15:13 02/14/18 15:13 PT 14.8 SECONDS (9.7-12.2) H 02/09/18 15:05 INR 1.4 02/09/18 15:05 APTT 36 SECONDS (21-34) H 02/09/18 15:05
--- NOTE | 2018-02-14 21:35 | PN ---
Copied To: Mc Miner MD Attending MD: Mc Miner MD DATE: 02/14/2018 SUBJECTIVE: The patient is currently undergoing hemodialysis. PHYSICAL EXAMINATION: VITAL SIGNS: Blood pressure 108/52, heart rate 75, temperature 97.6, and respirations 16. HEENT: Pale conjunctivae. CHEST: Clear. HEART: S1 and S2. Regular. EXTREMITIES: No edema. LABORATORY DATA: Today's hemoglobin and hematocrit 7.7 and 23.1. White count and platelet count are within normal limits. Yesterday's BUN and creatinine are 61 and 11.6. Troponin is 0.208 on 02/10/2018. I did review the electrocardiographic study, and it is strongly suggestive of both and mitral and aortic regurgitation with mild mitral and aortic insufficiency. ASSESSMENT: 1. Strep bacteremia. 2. Echocardiography evidence suggestive of mitral and aortic valve regurgitation. 3. End-stage renal disease, on hemodialysis. 4. History of right ureteric stent. 5. Anemia. RECOMMENDATIONS: Continue current IV Zosyn 2.25 g every 8 hours. Continue vancomycin 1 g intravenously Monday, Monday, and Monday. The patient will undergo removal of ureteric catheter in the a.m., and following that, the patient will be scheduled for transesophageal echocardiographic study. Mc Miner MD
--- NOTE | 2018-02-14 21:36 | CP.PCM.PN ---
Objective - Vital Signs/Intake and Output Vital Signs (last 24 hours): Temp Pulse Resp BP Pulse Ox 98.2 F 71 20 109/53 L 96 02/14/18 18:00 02/14/18 18:00 02/14/18 18:00 02/14/18 18:00 02/14/18 18:00 - Medications Medications: Current Medications Acetaminophen (Tylenol 325mg Tab) 650 mg PO Q6 PRN PRN Reason: Fever >100.4 F Alprazolam (Xanax) 0.5 mg PO Q12H PRN PRN Reason: Anxiety Last Admin: 02/14/18 10:20 Dose: 0.5 mg Aspirin (Aspirin Chewable) 81 mg PO DAILY [facility] Last Admin: 02/14/18 10:20 Dose: 81 mg Carvedilol (Coreg) 3.125 mg PO DAILY [facility] Epoetin Zain (Procrit) 10,000 unit IV MWF [facility] Last Admin: 02/14/18 16:51 Dose: 10,000 unit Ferrous Sulfate (Feosol) 325 mg PO BID [facility] Last Admin: 02/14/18 19:38 Dose: 325 mg Heparin Sodium (Porcine) (Heparin) 5,000 units SC Q12 [facility] Last Admin: 02/14/18 10:22 Dose: Not Given Vancomycin/Sodium Chloride (Vancomycin 1 Gm/Ns 200 Ml) 1 gm in 200 mls @ 133 mls/hr IVPB MWF [facility] PRN Reason: Protocol Stop: 02/17/18 16:01 Last Admin: 02/14/18 19:39 Dose: 133 mls/hr Piperacillin Sod/Tazobactam Sod (Zosyn 2.25 Gm Iv Premix) 2.25 gm in 50 mls @ 100 mls/hr IVPB Q8H [facility] PRN Reason: Protocol Last Admin: 02/14/18 21:35 Dose: Not Given Oxycodone HCl (Oxycontin Extended Release Tab) 20 mg PO Q12 [facility] Last Admin: 02/14/18 10:21 Dose: 20 mg Oxycodone/Acetaminophen (Percocet 5/325 Mg Tab) 2 tab PO Q4H PRN PRN Reason: Pain, moderate (4-7) Stop: 02/15/18 18:29 Last Admin: 02/14/18 13:58 Dose: 2 tab Pantoprazole Sodium (Protonix Ec Tab) 40 mg PO DAILY [facility] Last Admin: 02/14/18 10:20 Dose: 40 mg Sevelamer Carbonate (Renvela) 1,600 mg PO TID [facility] Last Admin: 02/14/18 19:39 Dose: 1,600 mg Tamsulosin HCl (Flomax) 0.4 mg PO DAILY [facility] Last Admin: 02/14/18 10:20 Dose: 0.4 mg - Labs Labs: 02/14/18 15:13 02/14/18 15:13 PT 14.8 SECONDS (9.7-12.2) H 02/09/18 15:05 INR 1.4 02/09/18 15:05 APTT 36 SECONDS (21-34) H 02/09/18 15:05
[2018-02-15] MEDS: Piperacill/Tazo 2.25gm in Dex 2.25 GM/50 ML BAG IVPB SCH ×3 (02:39→18:16)
--- NOTE | 2018-02-15 05:08 | PN ---
DATE: 02/14/2018 SUBJECTIVE: The patient has right flank pain. He is status post hemodialysis today. He is afebrile. No shortness of breath. No chest pain. PHYSICAL EXAMINATION: VITAL SIGNS: BP 142/68, pulse 73, respiratory rate 18, temperature 98.8. LUNGS: Clear. CARDIOVASCULAR SYSTEM: S1, S2 are regular. ABDOMEN: Soft. ASSESSMENT: 1. Acute pyelonephritis with nephrolithiasis with staghorn calculus in the right kidney, status post nephrectomy on the left kidney. 2. End-stage renal disease, status post hemodialysis today. His end-stage renal disease is due to nephrolithiasis with obstructive uropathy. 3. Anemia, most likely it is dilutional. PLAN: The patient is for one unit of packed RBCs. Mikel Marc MD
--- NOTE | 2018-02-15 09:36 | CP.PCM.PN ---
Subjective - Date & Time of Evaluation Date of Evaluation: 02/15/18 Time of Evaluation: 09:34 - Subjective Subjective: s/p dialysis 02/14- better compliance Given 1 unit prbcs blood transfusion on floor last PM on rx for UTI Still weak, in pain No f, c, n, v, HAs, SOB Objective - Vital Signs/Intake and Output Vital Signs (last 24 hours): Temp Pulse Resp BP Pulse Ox 98.8 F 74 20 107/50 L 96 02/15/18 08:46 02/15/18 08:46 02/15/18 08:46 02/15/18 08:46 02/15/18 08:46 Intake and Output: 02/15/18 02/15/18 06:59 18:59 Intake Total 721 Balance 721 - Medications Medications: Current Medications Acetaminophen (Tylenol 325mg Tab) 650 mg PO Q6 PRN PRN Reason: Fever >100.4 F Alprazolam (Xanax) 0.5 mg PO Q12H PRN PRN Reason: Anxiety Last Admin: 02/14/18 10:20 Dose: 0.5 mg Aspirin (Aspirin Chewable) 81 mg PO DAILY [facility] Last Admin: 02/14/18 10:20 Dose: 81 mg Carvedilol (Coreg) 3.125 mg PO DAILY [facility] Epoetin Zain (Procrit) 10,000 unit IV MWF [facility] Last Admin: 02/14/18 16:51 Dose: 10,000 unit Ferrous Sulfate (Feosol) 325 mg PO BID [facility] Last Admin: 02/14/18 19:38 Dose: 325 mg Heparin Sodium (Porcine) (Heparin) 5,000 units SC Q12 [facility] Last Admin: 02/14/18 22:56 Dose: Not Given Vancomycin/Sodium Chloride (Vancomycin 1 Gm/Ns 200 Ml) 1 gm in 200 mls @ 133 mls/hr IVPB MWF [facility] PRN Reason: Protocol Stop: 02/17/18 16:01 Last Admin: 02/14/18 19:39 Dose: 133 mls/hr Piperacillin Sod/Tazobactam Sod (Zosyn 2.25 Gm Iv Premix) 2.25 gm in 50 mls @ 100 mls/hr IVPB Q8H [facility] PRN Reason: Protocol Last Admin: 02/15/18 02:39 Dose: 100 mls/hr Oxycodone HCl (Oxycontin Extended Release Tab) 20 mg PO Q12 [facility] Last Admin: 02/14/18 22:54 Dose: 20 mg Oxycodone/Acetaminophen (Percocet 5/325 Mg Tab) 2 tab PO Q4H PRN PRN Reason: Pain, moderate (4-7) Stop: 02/15/18 18:29 Last Admin: 02/14/18 13:58 Dose: 2 tab Pantoprazole Sodium (Protonix Ec Tab) 40 mg PO DAILY [facility] Last Admin: 02/14/18 10:20 Dose: 40 mg Sevelamer Carbonate (Renvela) 1,600 mg PO TID [facility] Last Admin: 02/14/18 19:39 Dose: 1,600 mg Tamsulosin HCl (Flomax) 0.4 mg PO DAILY [facility] Last Admin: 02/14/18 10:20 Dose: 0.4 mg - Labs Labs: 02/14/18 15:13 02/14/18 15:13 PT 14.8 SECONDS (9.7-12.2) H 02/09/18 15:05 INR 1.4 02/09/18 15:05 APTT 36 SECONDS (21-34) H 02/09/18 15:05 - Constitutional Appears: No Acute Distress, Chronically Ill - Head Exam Head Exam: ATRAUMATIC, NORMAL INSPECTION - Eye Exam Eye Exam: EOMI, Normal appearance - Neck Exam Neck Exam: Normal Inspection. absent: Tenderness - Respiratory Exam Respiratory Exam: Clear to Ausculation Bilateral, NORMAL BREATHING PATTERN - Cardiovascular Exam Cardiovascular Exam: REGULAR RHYTHM, +S1 - GI/Abdominal Exam GI & Abdominal Exam: Soft. absent: Tenderness - Extremities Exam Extremities Exam: Normal Inspection. absent: Tenderness - Neurological Exam Neurological Exam: Alert, CN II-XII Intact - Skin Skin Exam: Dry, Warm Assessment and Plan (1) Chronic pyelonephritis Status: Acute (2) ESRD (end stage renal disease) Status: Acute (3) Xanthogranulomatous pyelonephritis Status: Acute - Assessment and Plan (Free Text) Plan: IV ABs Change stent soon dialysis MWF
[2018-02-15] MEDS: Pantoprazole 40 mg EC Tab PO SCH (10:57)
[2018-02-15] MEDS: oxyCODONE 20 mg ER Tab (oxyCONTIN) PO SCH ×2 (10:57→21:43)
[2018-02-15] MEDS: Oxycodone/Acetaminophen 5/325 mg Tab PO PRN (12:57)
--- NOTE | 2018-02-15 13:08 | PN ---
DATE: 02/14/2018 SUBJECTIVE: The patient was seen today. He still continues to have pain. He was due to have dialysis today and he is going to have a procedure done tomorrow. He does have kidney stones. He says he wants the kidney stones out, but I am not sure how much his kidney is functioning. Blood cultures have been positive, one of the culture was positive for anaerobe I suspect this infection to be bad or with abscess and he is for a stenting tomorrow. He does not want to get rid of the kidney, but he is getting septicemia. We will see what Dr. Ferro will do tomorrow. I also repeated blood cultures today on dialysis. I hope they have done it. We will continue with vancomycin and Zosyn at this time. He remains anemic. He is on dialysis. His kidney functions are very poor and he had pyuria. He also had opiates positive on the screening. He might be on pain medications, that would do it and at this time to continue antibiotics. He will need two weeks of treatment; however, the ID and sensitivity of blood cultures are still pending. Once said Enterococcus, the other one said Peptostreptococcus, so at this time we will continue both vancomycin and Zosyn to give it for two weeks at least as he may have anaerobic as well as gram-positive infection. Antonella Sexton MD
[2018-02-15 15:56] LABS: HEMOGLOBIN 8.3 g/dL (12.0-18.0); MEAN CELL VOLUME 93.7 fL (80.0-94.0); MEAN CORPUSCULAR HEMOGLOBIN 30.8 pg (27.0-31.0); MEAN CORPUSCULAR HGB CONC 32.9 g/dL (33.0-37.0); MEAN PLATELET VOLUME 7.5 fL (7.2-11.7); RBC 2.69 Mil/uL (4.40-5.90); RED CELL DISTRIBUTION WIDTH 15.2 % (11.5-14.5)
[2018-02-15 16:27] LABS: CALCIUM 9.2 mg/dl (8.6-10.4)
[2018-02-15] MEDS ORDERED: Iohexol 240 (50 ml) ONE (16:32)
[2018-02-15] MEDS ORDERED: Piperacillin/Tazobact 3.375 gm 100 ML IVPB ONE (16:32)
[2018-02-15] MEDS ORDERED: Midazolam 2 MG/2 ML VIAL ONE (16:44)
[2018-02-15] MEDS ORDERED: Propofol 10 mg/ml Inj (20 ML) ONE (16:44)
--- NOTE | 2018-02-15 19:02 | PN ---
DATE: 02/15/2018 SUBJECTIVE: The patient is being kept n.p.o. for cystoscopy. He denies any chest pain. PHYSICAL EXAMINATION: VITAL SIGNS: Blood pressure 107/50, heart rate 74, temperature 98.3, respirations 20. HEENT: Pale conjunctiva. CHEST: Clear. HEART: S1 and S2 regular. EXTREMITIES: No edema. ASSESSMENT: 1. Streptococcus bacteremia. 2. Bacterial endocarditis. 3. End-stage renal disease, on hemodialysis. 4. History of nephrolithiasis with staghorn calculus and additional right renal calculi and extensive right mid lower pole hydronephrosis. RECOMMENDATIONS: Overall, the meds are on hold. For now, the patient will undergo cystoscopy today. Continue current IV Zosyn and IV vancomycin and the plan is to perform transesophageal echocardiographic study once the patient is clinically stable next week. Mc Miner MD
--- NOTE | 2018-02-15 22:15 | CP.PCM.PN ---
Objective - Vital Signs/Intake and Output Vital Signs (last 24 hours): Temp Pulse Resp BP Pulse Ox 97.7 F 68 15 117/45 L 96 02/15/18 17:45 02/15/18 17:45 02/15/18 17:45 02/15/18 17:45 02/15/18 17:45 Intake and Output: 02/15/18 02/16/18 18:59 06:59 Intake Total 210 Balance 210 - Medications Medications: Current Medications Acetaminophen (Tylenol 325mg Tab) 650 mg PO Q6 PRN PRN Reason: Fever >100.4 F Alprazolam (Xanax) 0.5 mg PO Q12H PRN PRN Reason: Anxiety Last Admin: 02/14/18 10:20 Dose: 0.5 mg Aspirin (Aspirin Chewable) 81 mg PO DAILY [facility] Last Admin: 02/15/18 10:56 Dose: Not Given Carvedilol (Coreg) 3.125 mg PO DAILY [facility] Last Admin: 02/15/18 11:05 Dose: 3.125 mg Epoetin Zain (Procrit) 10,000 unit IV MWF [facility] Last Admin: 02/14/18 16:51 Dose: 10,000 unit Ferrous Sulfate (Feosol) 325 mg PO BID [facility] Last Admin: 02/15/18 18:16 Dose: 325 mg Vancomycin/Sodium Chloride (Vancomycin 1 Gm/Ns 200 Ml) 1 gm in 200 mls @ 133 mls/hr IVPB MWF [facility] PRN Reason: Protocol Stop: 02/17/18 16:01 Last Admin: 02/14/18 19:39 Dose: 133 mls/hr Piperacillin Sod/Tazobactam Sod (Zosyn 2.25 Gm Iv Premix) 2.25 gm in 50 mls @ 100 mls/hr IVPB Q8H [facility] PRN Reason: Protocol Last Admin: 02/15/18 18:16 Dose: Not Given Oxycodone HCl (Oxycontin Extended Release Tab) 20 mg PO Q12 [facility] Last Admin: 02/15/18 21:43 Dose: 20 mg Pantoprazole Sodium (Protonix Ec Tab) 40 mg PO DAILY [facility] Last Admin: 02/15/18 10:57 Dose: Not Given Sevelamer Carbonate (Renvela) 1,600 mg PO TID [facility] Last Admin: 02/15/18 18:16 Dose: 1,600 mg Tamsulosin HCl (Flomax) 0.4 mg PO DAILY [facility] Last Admin: 02/15/18 10:56 Dose: Not Given - Labs Labs: 02/15/18 15:52 02/15/18 15:52 PT 14.8 SECONDS (9.7-12.2) H 02/09/18 15:05 INR 1.4 02/09/18 15:05 APTT 36 SECONDS (21-34) H 02/09/18 15:05
[2018-02-16] MEDS: Piperacill/Tazo 2.25gm in Dex 2.25 GM/50 ML BAG IVPB SCH ×4 (03:19→19:01)
--- NOTE | 2018-02-16 04:21 | PN ---
DATE: 02/15/2018 SUBJECTIVE: The patient is status post OR. The patient is postanesthesia. He is post dialysis. He is status post cystoscopy. He is afebrile. He is on antibiotics. No nausea or vomiting. PHYSICAL EXAMINATION: VITAL SIGNS: BP 117/45, pulse 68, respiratory rate 15, temperature 97.7. LUNGS: Clear. CARDIOVASCULAR SYSTEM: S1 and S2, regular. ABDOMEN: Soft. ASSESSMENT: 1. Nephrolithiasis pyelonephritis. 2. End-stage renal disease, on hemodialysis. 3. Anxiety and depression. PLAN: Continue current medication. Monitor the patient. Mikel Marc MD
--- NOTE | 2018-02-16 10:01 | RAD ---
Date of service: 02/15/2018 HISTORY: RIGHT KIDNEY STONE COMPARISON: 08/25/2027 FINDINGS: BOWEL: Right ureteral stent noted. Multiple large coarse right renal calculi. Small smooth calculi seen overlying inferior aspect of right kidney may represent gallstones. Additional calcifications noted. Normal bowel gas pattern. No hepatic or splenic enlargement. BONES: Normal. OTHER FINDINGS: None. IMPRESSION: Large coarse right renal calculi. Possible cholelithiasis. Right ureteral stent.
[2018-02-16] MEDS: oxyCODONE 20 mg ER Tab (oxyCONTIN) PO SCH ×3 (10:39→21:35)
[2018-02-16] MEDS: Pantoprazole 40 mg EC Tab PO SCH ×2 (10:39→11:38)
[2018-02-16] MEDS: Vancomycin 1 gm/NS 200 ml 1 GM/200 ML BAG IVPB SCH (10:46)
--- NOTE | 2018-02-16 12:32 | CP.PCM.PN ---
Subjective - Date & Time of Evaluation Date of Evaluation: 02/16/18 Time of Evaluation: 12:29 - Subjective Subjective: alert, same pains, for dialysis today stent was changed s/p blood transfusion 1 unit prbcs afebrile now advised patient to consider nephrectomy Objective - Vital Signs/Intake and Output Vital Signs (last 24 hours): Temp Pulse Resp BP Pulse Ox 98.9 F 76 18 127/58 L 96 02/16/18 07:00 02/16/18 07:00 02/16/18 07:00 02/16/18 07:00 02/16/18 07:00 - Medications Medications: Current Medications Acetaminophen (Tylenol 325mg Tab) 650 mg PO Q6 PRN PRN Reason: Fever >100.4 F Alprazolam (Xanax) 0.5 mg PO Q12H PRN PRN Reason: Anxiety Last Admin: 02/16/18 11:43 Dose: 0.5 mg Aspirin (Aspirin Chewable) 81 mg PO DAILY [facility] Last Admin: 02/16/18 11:38 Dose: 81 mg Carvedilol (Coreg) 3.125 mg PO DAILY [facility] Last Admin: 02/16/18 11:00 Dose: Not Given Epoetin Zain (Procrit) 10,000 unit IV MWF [facility] Last Admin: 02/14/18 16:51 Dose: 10,000 unit Ferrous Sulfate (Feosol) 325 mg PO BID [facility] Last Admin: 02/16/18 11:37 Dose: 325 mg Vancomycin/Sodium Chloride (Vancomycin 1 Gm/Ns 200 Ml) 1 gm in 200 mls @ 133 mls/hr IVPB MWF [facility] PRN Reason: Protocol Stop: 02/17/18 16:01 Last Admin: 02/16/18 10:46 Dose: Not Given Piperacillin Sod/Tazobactam Sod (Zosyn 2.25 Gm Iv Premix) 2.25 gm in 50 mls @ 100 mls/hr IVPB Q8H [facility] PRN Reason: Protocol Last Admin: 02/16/18 10:42 Dose: Not Given Oxycodone HCl (Oxycontin Extended Release Tab) 20 mg PO Q12 [facility] Last Admin: 02/16/18 11:39 Dose: 20 mg Pantoprazole Sodium (Protonix Ec Tab) 40 mg PO DAILY [facility] Last Admin: 02/16/18 11:38 Dose: 40 mg Sevelamer Carbonate (Renvela) 1,600 mg PO TID [facility] Last Admin: 02/16/18 11:39 Dose: 1,600 mg Tamsulosin HCl (Flomax) 0.4 mg PO DAILY [facility] Last Admin: 02/16/18 11:38 Dose: 0.4 mg - Labs Labs: 02/15/18 15:52 02/15/18 15:52 PT 14.8 SECONDS (9.7-12.2) H 02/09/18 15:05 INR 1.4 02/09/18 15:05 APTT 36 SECONDS (21-34) H 02/09/18 15:05 - Constitutional Appears: No Acute Distress, Chronically Ill - Head Exam Head Exam: ATRAUMATIC, NORMAL INSPECTION - Eye Exam Eye Exam: EOMI, Normal appearance - Neck Exam Neck Exam: Normal Inspection. absent: Tenderness - Respiratory Exam Respiratory Exam: Clear to Ausculation Bilateral, NORMAL BREATHING PATTERN - Cardiovascular Exam Cardiovascular Exam: REGULAR RHYTHM, +S1 - GI/Abdominal Exam GI & Abdominal Exam: Soft, Tenderness - Extremities Exam Extremities Exam: Normal Inspection. absent: Tenderness - Neurological Exam Neurological Exam: Awake, CN II-XII Intact - Skin Skin Exam: Dry, Warm Assessment and Plan (1) Chronic pyelonephritis Status: Acute (2) ESRD (end stage renal disease) Status: Acute (3) Xanthogranulomatous pyelonephritis Status: Acute - Assessment and Plan (Free Text) Plan: dialysis now and MWF follow up
--- NOTE | 2018-02-16 13:30 | RAD ---
Date of service: 02/15/2018 PROCEDURE: Intraoperative fluoroscopy HISTORY: RIGHT KEDNEY STONE COMPARISON: Not available TECHNIQUE: Intraoperative fluoroscopy was provided for right pyeloureterography. Total time of fluoroscopy was 5.3 seconds. Cumulative dose was 0.18071 mGy meter squared. . FINDINGS: Multiple fluoroscopic spot films are submitted. IMPRESSION: Fluoroscopy provided.
[2018-02-16] MEDS: Epoetin Alfa 10,000 unit/ml Dialysis IV SCH (15:40)
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
[2018-02-16] MEDS ORDERED: Vancomycin 1 gm/NS 200 ml 1 GM/200 ML BAG IVPB ONE (18:33)
--- NOTE | 2018-02-16 19:25 | PN ---
DATE: 02/16/2018 SUBJECTIVE: The patient underwent cystoscopy with right ureteral stent insertion. The patient denies any chest pain or shortness of breath. PHYSICAL EXAMINATION: VITAL SIGNS: Blood pressure 127/58, heart rate 76, temperature 98.9, respirations 18. HEENT: Pale conjunctivae. CHEST: Clear. HEART: S1 and S2 regular. EXTREMITIES: No edema. ASSESSMENT: 1. Streptococcus bacteremia. 2. 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 3. Staghorn calculus oscillatory right kidney with hydroureter and hydronephrosis. 4. End-stage renal disease, on hemodialysis. RECOMMENDATIONS: Continue aspirin 81 mg once a day, Protonix 40 mg once a day, vancomycin 1 g Monday, Monday and Monday, and Zosyn 2.25 g intravenously every 8 hours. The patient will undergo hemodialysis today and we will reschedule for [facility] next week. Mc Miner MD
--- NOTE | 2018-02-16 21:23 | CP.PCM.DIS ---
Provider - Provider Date of Admission: 02/09/18 16:40 Attending physician: Mikel Marc MD Hospital Course - Lab Results Lab Results: Micro Results 02/14/18 15:00 Blood-During Dialysis Blood Culture - Preliminary NO GROWTH AFTER 48 HOURS 02/14/18 14:30 Blood-During Dialysis Blood Culture - Preliminary NO GROWTH AFTER 48 HOURS 02/09/18 15:00 Blood S.aureus & Coag-Neg Staph PNA FISH - Final 02/09/18 15:00 Blood Blood Culture - Final Peptostreptococcus Species 02/09/18 15:00 Blood Gram Stain - Final 02/12/18 10:48 Urine Urine Culture - Final No Growth (<1,000 CFU/ML) 02/09/18 14:50 Blood Blood Culture - Preliminary Gram Positive Cocci 02/09/18 14:50 Blood Gram Stain - Final 02/10/18 06:00 Urine Urine Culture - Final 10-50,000 CFU/ML. MULTIPLE SPECIES. PROBABLE CONTAMINATION. Most Recent Lab Values WBC 7.0 K/uL (4.8-10.8) 02/15/18 15:52 RBC 2.69 Mil/uL (4.40-5.90) L 02/15/18 15:52 Hgb 8.3 g/dL (12.0-18.0) L 02/15/18 15:52 Hct 25.2 % (35.0-51.0) L 02/15/18 15:52 MCV 93.7 fL (80.0-94.0) 02/15/18 15:52 MCH 30.8 pg (27.0-31.0) 02/15/18 15:52 MCHC 32.9 g/dL (33.0-37.0) L 02/15/18 15:52 RDW 15.2 % (11.5-14.5) H 02/15/18 15:52 Plt Count 181 K/uL (130-400) 02/15/18 15:52 MPV 7.5 fL (7.2-11.7) 02/15/18 15:52 Neut % (Auto) 79.7 % (50.0-75.0) H 02/09/18 15:05 Lymph % (Auto) 11.1 % (20.0-40.0) L 02/09/18 15:05 [place] % (Auto) 7.8 % (0.0-10.0) 02/09/18 15:05 Eos % (Auto) 0.6 % (0.0-4.0) 02/09/18 15:05 Baso % (Auto) 0.8 % (0.0-2.0) 02/09/18 15:05 Neut # (Auto) 5.2 K/uL (1.8-7.0) 02/09/18 15:05 Lymph # (Auto) 0.7 K/uL (1.0-4.3) L 02/09/18 15:05 [place] # (Auto) 0.5 K/uL (0.0-0.8) 02/09/18 15:05 Eos # (Auto) 0.0 K/uL (0.0-0.7) 02/09/18 15:05 Baso # (Auto) 0.1 K/uL (0.0-0.2) 02/09/18 15:05 PT 14.8 SECONDS (9.7-12.2) H 02/09/18 15:05 INR 1.4 02/09/18 15:05 APTT 36 SECONDS (21-34) H 02/09/18 15:05 D-Dimer, Quantitative 735 ng/mlDDU (0-243) H 02/10/18 17:19 Sodium 136 mmol/L (132-148) 02/15/18 15:52 Potassium 5.4 mmol/L (3.6-5.2) H 02/15/18 15:52 Chloride 95 mmol/L (98-107) L 02/15/18 15:52 Carbon Dioxide 27 mmol/L (22-30) 02/15/18 15:52 Anion Gap 19 (10-20) 02/15/18 15:52 BUN 48 mg/dL (9-20) H 02/15/18 15:52 Creatinine 9.3 mg/dL (0.8-1.5) H* D 02/15/18 15:52 Est GFR ( Amer) 7 02/15/18 15:52 Est GFR (Non-Af Amer) 6 02/15/18 15:52 POC Glucose (mg/dL) 97 mg/dL (65-110) 02/09/18 14:09 Random Glucose 99 mg/dL (75-110) 02/15/18 15:52 Lactic Acid 1.4 mmol/L (0.7-2.1) 02/09/18 23:43 Calcium 9.2 mg/dl (8.6-10.4) 02/15/18 15:52 Total Bilirubin 0.4 mg/dL (0.2-1.3) 02/14/18 15:13 AST 11 U/L (17-59) L 02/14/18 15:13 ALT 19 U/L (21-72) L 02/14/18 15:13 Alkaline Phosphatase 90 U/L (38-126) 02/14/18 15:13 Troponin I 0.2080 ng/mL (0.00-0.120) H* 02/10/18 07:08 Total Protein 6.7 g/dL (6.3-8.3) 02/14/18 15:13 Albumin 3.3 g/dL (3.5-5.0) L 02/14/18 15:13 Globulin 3.4 gm/dL (2.2-3.9) 02/14/18 15:13 Albumin/Globulin Ratio 1.0 (1.0-2.1) 02/14/18 15:13 Lipase 24 U/L (23-300) 02/09/18 15:05 Urine Color Yellow (YELLOW) 02/12/18 10:48 Urine Clarity Hazy (Clear) 02/12/18 10:48 Urine pH 8.0 (5.0-8.0) 02/12/18 10:48 Ur Specific [place] 1.008 (1.003-1.030) 02/12/18 10:48 Urine Protein 2+ mg/dL (NEGATIVE) H 02/12/18 10:48 Urine Glucose (UA) Normal mg/dL (Normal) 02/12/18 10:48 Urine Ketones Negative mg/dL (NEGATIVE) 02/12/18 10:48 Urine Blood 3+ (NEGATIVE) H 02/12/18 10:48 Urine Nitrate Negative (NEGATIVE) 02/12/18 10:48 Urine Bilirubin Negative (NEGATIVE) 02/12/18 10:48 Urine Urobilinogen Normal mg/dL (0.2-1.0) 02/12/18 10:48 Ur Leukocyte Esterase 3+ Charleen/uL (Negative) H 02/12/18 10:48 Urine WBC (Auto) 295 /hpf (0-5) H 02/12/18 10:48 Urine RBC (Auto) 176 /hpf (0-3) H 02/12/18 10:48 Urine WBC Clumps (Auto) Many /hpf (NONE) H 02/12/18 10:48 Urine Bacteria Occ (<OCC) H 02/12/18 10:48 Random Vancomycin 6.6 ug/mL 02/11/18 14:08 Urine Opiates Screen Positive (NEGATIVE) H 02/12/18 10:48 Urine Methadone Screen Negative (NEGATIVE) 02/12/18 10:48 Ur Barbiturates Screen Negative (NEGATIVE) 02/12/18 10:48 Ur Phencyclidine Scrn Negative (NEGATIVE) 02/12/18 10:48 Ur Amphetamines Screen Negative (NEGATIVE) 02/12/18 10:48 U Benzodiazepines Scrn Positive (NEGATIVE) 02/12/18 10:48 U Oth Cocaine Metabols Negative (NEGATIVE) 02/12/18 10:48 U Cannabinoids Screen Negative (NEGATIVE) 02/12/18 10:48 Blood Type O POSITIVE 02/14/18 16:53 Antibody Screen Negative 02/14/18 16:53 Discharge Exam - Head Exam Head Exam: NORMOCEPHALIC Discharge Plan - Follow Up Plan Condition: FAIR Disposition: HOME/ ROUTINE
[2018-02-16] MEDS ORDERED: oxyCODONE 20 mg ER Tab (oxyCONTIN) PO SCH (22:00)
[2018-02-17] MEDS: Piperacill/Tazo 2.25gm in Dex 2.25 GM/50 ML BAG IVPB SCH ×3 (01:41→18:17)
--- NOTE | 2018-02-17 03:05 | PN ---
DATE: 02/16/2018 SUBJECTIVE: The patient is status post cystoscopy. He is afebrile. No shortness of breath. No nausea or vomiting. Status post dialysis. PHYSICAL EXAMINATION: VITAL SIGNS: BP 138/54, pulse 82, respiratory rate 20, and temperature 99.3. LUNGS: Clear. CARDIOVASCULAR SYSTEM: S1 and S2 are regular. ABDOMEN: Soft. ASSESSMENT: 1. Staghorn calculus in the right kidney, painful with infection. 2. Chronic kidney disease, on hemodialysis, due to nephrolithiasis. 3. Anxiety and depression. PLAN: Continue antibiotics. Monitor the patient. The patient needs to follow up with Dr. Ferro after discharge. Mikel Marc MD
[2018-02-17] MEDS: Oxycodone/Acetaminophen 5/325 mg Tab PO PRN (09:03)
[2018-02-17] MEDS: Pantoprazole 40 mg EC Tab PO SCH (09:04)
--- NOTE | 2018-02-17 09:52 | CP.PCM.PN ---
Subjective - Date & Time of Evaluation Date of Evaluation: 02/17/18 Time of Evaluation: 09:50 - Subjective Subjective: stable dialysis 02/16 mod pain over flamk still on IV ABs for UTI post stent change Objective - Vital Signs/Intake and Output Vital Signs (last 24 hours): Temp Pulse Resp BP Pulse Ox 99.3 F 78 20 127/52 L 95 02/17/18 07:00 02/17/18 07:00 02/17/18 07:00 02/17/18 07:00 02/17/18 07:00 - Medications Medications: Current Medications Acetaminophen (Tylenol 325mg Tab) 650 mg PO Q6 PRN PRN Reason: Fever >100.4 F Alprazolam (Xanax) 0.5 mg PO BID PRN PRN Reason: Anxiety Last Admin: 02/16/18 22:13 Dose: 0.5 mg Aspirin (Aspirin Chewable) 81 mg PO DAILY [facility] Last Admin: 02/17/18 09:04 Dose: 81 mg Carvedilol (Coreg) 3.125 mg PO DAILY [facility] Last Admin: 02/17/18 09:04 Dose: 3.125 mg Epoetin Zain (Procrit) 10,000 unit IV MWF [facility] Last Admin: 02/16/18 15:40 Dose: 10,000 unit Ferrous Sulfate (Feosol) 325 mg PO BID [facility] Last Admin: 02/17/18 09:04 Dose: 325 mg Vancomycin/Sodium Chloride (Vancomycin 1 Gm/Ns 200 Ml) 1 gm in 200 mls @ 133 mls/hr IVPB MWF [facility] PRN Reason: Protocol Stop: 02/17/18 16:01 Last Admin: 02/16/18 10:46 Dose: Not Given Piperacillin Sod/Tazobactam Sod (Zosyn 2.25 Gm Iv Premix) 2.25 gm in 50 mls @ 100 mls/hr IVPB Q8H [facility] PRN Reason: Protocol Last Admin: 02/17/18 01:41 Dose: 100 mls/hr Oxycodone HCl (Oxycontin Extended Release Tab) 20 mg PO Q12 [facility] Oxycodone/Acetaminophen (Percocet 5/325 Mg Tab) 2 tab PO Q4H PRN PRN Reason: Pain, moderate (4-7) Stop: 02/20/18 08:20 Last Admin: 02/17/18 09:03 Dose: 2 tab Pantoprazole Sodium (Protonix Ec Tab) 40 mg PO DAILY [facility] Last Admin: 02/17/18 09:04 Dose: 40 mg Sevelamer Carbonate (Renvela) 1,600 mg PO TID [facility] Last Admin: 02/17/18 09:04 Dose: 1,600 mg Tamsulosin HCl (Flomax) 0.4 mg PO DAILY [facility] Last Admin: 02/17/18 09:04 Dose: 0.4 mg - Labs Labs: 02/15/18 15:52 02/15/18 15:52 PT 14.8 SECONDS (9.7-12.2) H 02/09/18 15:05 INR 1.4 02/09/18 15:05 APTT 36 SECONDS (21-34) H 02/09/18 15:05 - Constitutional Appears: No Acute Distress, Chronically Ill - Head Exam Head Exam: ATRAUMATIC, NORMAL INSPECTION - Eye Exam Eye Exam: EOMI, Normal appearance - Neck Exam Neck Exam: Normal Inspection. absent: Tenderness - Respiratory Exam Respiratory Exam: Clear to Ausculation Bilateral, NORMAL BREATHING PATTERN - Cardiovascular Exam Cardiovascular Exam: REGULAR RHYTHM, +S1 - GI/Abdominal Exam GI & Abdominal Exam: Soft. absent: Tenderness - Extremities Exam Extremities Exam: Normal Inspection. absent: Tenderness - Neurological Exam Neurological Exam: Awake, CN II-XII Intact - Skin Skin Exam: Dry, Warm Assessment and Plan (1) Chronic pyelonephritis Status: Acute (2) ESRD (end stage renal disease) Status: Acute (3) Xanthogranulomatous pyelonephritis Status: Acute - Assessment and Plan (Free Text) Plan: dialysis MWF IV ABs could consider nephrectomy
[2018-02-17] MEDS: oxyCODONE 20 mg ER Tab (oxyCONTIN) PO SCH ×2 (10:33→21:17)
--- NOTE | 2018-02-17 17:43 | PN ---
DATE: 02/17/2018 SUBJECTIVE: The patient denies chest pain or shortness of breath. He underwent hemodialysis yesterday. PHYSICAL EXAMINATION: VITAL SIGNS: Blood pressure 127/52, heart rate 78, temperature 99.3, respirations 20. HEENT: Pale conjunctivae. CHEST: Clear. HEART: S1 and S2 regular. EXTREMITIES: No edema. ASSESSMENT AND PLAN: 1. Streptococcus bacteremia. 2. Bacterial endocarditis. 3. Staghorn , right kidney, the patient had left nephrectomy in the past. RECOMMENDATION: Continue aspirin 81 mg once a day, Coreg 3.125 mg twice a day, Percocet 2 tablets every 4 hours p.r.n., IV vancomycin and IV Zosyn. The patient will be scheduled for [facility] next week. Mc Miner MD
--- NOTE | 2018-02-18 00:26 | CP.PCM.PN ---
Subjective - Date & Time of Evaluation Date of Evaluation: 02/17/18 - Subjective Subjective: weak, no sob, no fever, no cough Objective - Vital Signs/Intake and Output Vital Signs (last 24 hours): Temp Pulse Resp BP Pulse Ox 98.3 F 69 20 131/60 95 02/17/18 15:00 02/17/18 15:00 02/17/18 15:00 02/17/18 15:00 02/17/18 15:00 - Medications Medications: Current Medications Acetaminophen (Tylenol 325mg Tab) 650 mg PO Q6 PRN PRN Reason: Fever >100.4 F Alprazolam (Xanax) 0.5 mg PO BID PRN PRN Reason: Anxiety Last Admin: 02/16/18 22:13 Dose: 0.5 mg Aspirin (Aspirin Chewable) 81 mg PO DAILY [facility] Last Admin: 02/17/18 09:04 Dose: 81 mg Carvedilol (Coreg) 3.125 mg PO DAILY [facility] Last Admin: 02/17/18 09:04 Dose: 3.125 mg Epoetin Zain (Procrit) 10,000 unit IV MWF [facility] Last Admin: 02/16/18 15:40 Dose: 10,000 unit Ferrous Sulfate (Feosol) 325 mg PO BID [facility] Last Admin: 02/17/18 18:17 Dose: 325 mg Piperacillin Sod/Tazobactam Sod (Zosyn 2.25 Gm Iv Premix) 2.25 gm in 50 mls @ 100 mls/hr IVPB Q8H [facility] PRN Reason: Protocol Last Admin: 02/17/18 18:17 Dose: 100 mls/hr Oxycodone HCl (Oxycontin Extended Release Tab) 20 mg PO Q12 [facility] Last Admin: 02/17/18 21:17 Dose: 20 mg Oxycodone/Acetaminophen (Percocet 5/325 Mg Tab) 2 tab PO Q4H PRN PRN Reason: Pain, moderate (4-7) Stop: 02/20/18 08:20 Last Admin: 02/17/18 09:03 Dose: 2 tab Pantoprazole Sodium (Protonix Ec Tab) 40 mg PO DAILY [facility] Last Admin: 02/17/18 09:04 Dose: 40 mg Sevelamer Carbonate (Renvela) 1,600 mg PO TID [facility] Last Admin: 02/17/18 18:17 Dose: 1,600 mg Tamsulosin HCl (Flomax) 0.4 mg PO DAILY [facility] Last Admin: 02/17/18 09:04 Dose: 0.4 mg - Labs Labs: 02/15/18 15:52 02/15/18 15:52 PT 14.8 SECONDS (9.7-12.2) H 02/09/18 15:05 INR 1.4 02/09/18 15:05 APTT 36 SECONDS (21-34) H 02/09/18 15:05 - Constitutional Appears: Non-toxic, Chronically Ill - Head Exam Head Exam: ATRAUMATIC, NORMAL INSPECTION, NORMOCEPHALIC - Eye Exam Eye Exam: EOMI, Normal appearance, PERRL Pupil Exam: NORMAL ACCOMODATION - ENT Exam ENT Exam: Mucous Membranes Moist, Normal Exam - Neck Exam Neck Exam: Normal Inspection - Respiratory Exam Respiratory Exam: Clear to Ausculation Bilateral, NORMAL BREATHING PATTERN - Cardiovascular Exam Cardiovascular Exam: REGULAR RHYTHM, +S1, +S2 - GI/Abdominal Exam GI & Abdominal Exam: Soft, Normal Bowel Sounds - Rectal Exam Rectal Exam: NORMAL INSPECTION - Extremities Exam Extremities Exam: Full ROM, Normal Capillary Refill, Normal Inspection - Neurological Exam Neurological Exam: Alert, Awake, CN II-XII Intact, Normal Gait, Oriented x3 Neuro motor strength exam: Left Upper Extremity: 5, Right Upper Extremity: 5, Left Lower Extremity: 5, Right Lower Extremity: 5 - Psychiatric Exam Psychiatric exam: Anxious, Depressed, Flat Affect - Skin Skin Exam: Intact Assessment and Plan (1) Renal infection Status: Acute (2) CKD (chronic kidney disease) Status: Chronic (3) Hepatitis C Status: Chronic (4) Nephrolithiasis Status: Chronic
[2018-02-18] MEDS: Piperacill/Tazo 2.25gm in Dex 2.25 GM/50 ML BAG IVPB SCH ×3 (03:22→17:50)
[2018-02-18] MEDS: Pantoprazole 40 mg EC Tab PO SCH (09:54)
[2018-02-18] MEDS: oxyCODONE 20 mg ER Tab (oxyCONTIN) PO SCH ×2 (09:54→21:43)
[2018-02-18] MEDS ORDERED: Iodixanol 320 MG/ML 200 ML BOTTLE IV ONE (15:14)
--- NOTE | 2018-02-18 16:25 | CT ---
CT chest pulmonary angiogram History: Shortness of breath. Pulmonary embolism. Comparison: None available. Technique: Multiple contiguous axial images were performed through the chest with the use of intravenous contrast according to pulmonary embolism protocol. Subsequently, sagittal and coronal reformatted images were obtained. Sagittal and coronal MIPS reformatted images were obtained. This CT exam was performed using one or more of the following dose reduction techniques: Automated exposure control, adjustment of the mA and/or kV according to patient size, and/or use of iterative reconstruction technique. Findings: Somewhat limited study given suboptimal contrast timing bolus. No evidence of gross central pulmonary embolism. More limited evaluation of the segmental and subsegmental branches given suboptimal contrast opacification and prominent motion artifact. Suggestion of dense contrast opacification and or possible calcifications seen within segmental branches of the right lower lobe pulmonary artery on series 3 images 65 through 70, nonspecific. Clinical correlation. Moderate right and small left pleural effusion. Venous congestion in the lung cruz. Right lung: Multiple scattered nodules seen throughout the right lung. Right basilar consolidative changes with associated atelectasis. Left lung: Scattered emphysematous bullae. Multiple scattered nodules seen throughout the left upper lobe and to a lesser extent left lower lobe. Left basilar consolidation/atelectasis. Trachea thru central airways are patent. No significant axillary adenopathy. 2 centimeter prevascular lymph node. No pericardial effusion. Hepatomegaly with heterogeneous attenuation of the liver. Mild intrahepatic biliary ductal dilatation. Partially imaged gallbladder appears edematous. Clinical correlation. Prominent spleen. Nodular thickening of the adrenal glands. Mild heterogeneity at the level of the pancreas. Degenerative changes in the spine. Impression: 1. Limited study for evaluation for pulmonary emboli given suboptimal contrast timing bolus and prominent motion artifact. No central pulmonary embolism. More limited evaluation of the segmental and subsegmental branches. Increased radiodensity/calcification seen at the level of the right lower lobe pulmonary arteries, nonspecific. Clinical correlation. 2. Scattered multiple bilateral pulmonary nodules/ground-glass nodules seen throughout the lungs as described above. This may be secondary to an acute infectious and or inflammatory process. Interval follow-up chest CT would be helpful to ensure resolution and exclude additional etiology. 3. Moderate right and small left pleural effusion. 4. Bibasilar consolidative changes atelectasis. Additional findings as above.
--- NOTE | 2018-02-18 16:50 | RAD ---
Abdomen four views History: Abdominal pain. Comparison: CT dated 02/09/2018 Findings: Right nephroureteral stent in place. Large staghorn calculus projecting over the right renal fossa. Multiple calcified phleboliths in the pelvis. Moderate fecal retention in the colon. Degenerative changes in the spine. Chronic deformity of the right hemipelvis. Impression: Right nephroureteral stent in place. Large staghorn calculus projecting over the right renal fossa. Multiple calcified phleboliths in the pelvis. Moderate fecal retention in the colon. Degenerative changes in the spine. Chronic deformity of the right hemipelvis.
[2018-02-18] MEDS: Oxycodone/Acetaminophen 5/325 mg Tab PO PRN (18:14)
--- NOTE | 2018-02-18 19:26 | CP.PCM.PN ---
Subjective - Subjective Subjective: c/o cough, congestion, upper abdominal pain, and has some chest pain, non specific Objective - Vital Signs/Intake and Output Vital Signs (last 24 hours): Temp Pulse Resp BP Pulse Ox 98.6 F 108 H 20 136/63 96 02/18/18 15:00 02/18/18 16:58 02/18/18 15:00 02/18/18 15:00 02/18/18 15:00 Intake and Output: 02/18/18 02/19/18 18:59 06:59 Intake Total 480 Balance 480 - Medications Medications: Current Medications Acetaminophen (Tylenol 325mg Tab) 650 mg PO Q6 PRN PRN Reason: Fever >100.4 F Alprazolam (Xanax) 0.5 mg PO BID PRN PRN Reason: Anxiety Last Admin: 02/16/18 22:13 Dose: 0.5 mg Aspirin (Aspirin Chewable) 81 mg PO DAILY [facility] Last Admin: 02/18/18 09:54 Dose: 81 mg Carvedilol (Coreg) 3.125 mg PO DAILY [facility] Last Admin: 02/18/18 09:54 Dose: 3.125 mg Epoetin Zain (Procrit) 10,000 unit IV MWF [facility] Last Admin: 02/16/18 15:40 Dose: 10,000 unit Ferrous Sulfate (Feosol) 325 mg PO BID [facility] Last Admin: 02/18/18 17:49 Dose: 325 mg Heparin Sodium (Porcine) (Heparin) 5,000 units SC Q8 [facility] Last Admin: 02/18/18 13:38 Dose: 5,000 units Piperacillin Sod/Tazobactam Sod (Zosyn 2.25 Gm Iv Premix) 2.25 gm in 50 mls @ 100 mls/hr IVPB Q8H [facility] PRN Reason: Protocol Last Admin: 02/18/18 17:50 Dose: 100 mls/hr Oxycodone HCl (Oxycontin Extended Release Tab) 20 mg PO Q12 [facility] Last Admin: 02/18/18 09:54 Dose: 20 mg Oxycodone/Acetaminophen (Percocet 5/325 Mg Tab) 2 tab PO Q4H PRN PRN Reason: Pain, moderate (4-7) Stop: 02/20/18 08:20 Last Admin: 02/18/18 18:14 Dose: 2 tab Pantoprazole Sodium (Protonix Ec Tab) 40 mg PO DAILY [facility] Last Admin: 02/18/18 09:54 Dose: 40 mg Sevelamer Carbonate (Renvela) 1,600 mg PO TID [facility] Last Admin: 02/18/18 17:50 Dose: 1,600 mg Tamsulosin HCl (Flomax) 0.4 mg PO DAILY [facility] Last Admin: 02/18/18 09:54 Dose: 0.4 mg - Labs Labs: 02/15/18 15:52 02/15/18 15:52 PT 14.8 SECONDS (9.7-12.2) H 02/09/18 15:05 INR 1.4 02/09/18 15:05 APTT 36 SECONDS (21-34) H 02/09/18 15:05 - Constitutional Appears: Non-toxic, In Acute Distress, Chronically Ill - Head Exam Head Exam: ATRAUMATIC, NORMAL INSPECTION, NORMOCEPHALIC - Eye Exam Eye Exam: EOMI, Normal appearance, PERRL Pupil Exam: NORMAL ACCOMODATION - ENT Exam ENT Exam: Mucous Membranes Moist, Normal Exam, Normal Oropharynx, TM's Normal Bilaterally - Neck Exam Neck Exam: Normal Inspection - Respiratory Exam Respiratory Exam: Clear to Ausculation Bilateral, NORMAL BREATHING PATTERN - Cardiovascular Exam Cardiovascular Exam: REGULAR RHYTHM, +S1, +S2, Murmur - GI/Abdominal Exam GI & Abdominal Exam: Soft, Normal Bowel Sounds - Rectal Exam Rectal Exam: NORMAL INSPECTION - Extremities Exam Extremities Exam: Full ROM, Normal Capillary Refill, Normal Inspection - Back Exam Back Exam: muscle spasm - Neurological Exam Neurological Exam: Alert, Awake, CN II-XII Intact, Normal Gait, Oriented x3 - Psychiatric Exam Psychiatric exam: Anxious, Flat Affect - Skin Skin Exam: Dry, Intact Assessment and Plan (1) Renal infection Assessment & Plan: check abdominal series, and ct chest Status: Acute (2) CKD (chronic kidney disease) Status: Chronic (3) Hepatitis C Status: Chronic (4) Nephrolithiasis Status: Chronic
--- NOTE | 2018-02-19 01:03 | PN ---
DATE: 02/18/2018 SUBJECTIVE: The patient is experiencing shortness of breath. He denies history of any chest pain. PHYSICAL EXAMINATION: VITAL SIGNS: Blood pressure 136/63, heart rate 72, temperature 98.6, respirations 20. HEENT: Pale conjunctivae. CHEST: Basilar rhonchi. HEART: S1 and S2 regular. EXTREMITIES: No edema. LABORATORY DATA: Abdomen multiple view, impression; right nephroureteral stent in place, large staghorn calculus projecting over the right renal fossa, multiple calcified phlebolith in the pelvis, moderate fecal retention in the colon. Chest CT angio with PE protocol, limited study for evaluation of pulmonary emboli given suboptimal contrast finding, bolus and prominent motion artifact. No evidence of pulmonary embolus. Scattered multiple bilateral pulmonary nodules/ground-glass nodules throughout the lungs. This may be secondary to acute infectious and/or inflammatory process. Moderate right perfusion. Bibasilar consolidative changes/atelectasis. ASSESSMENT: 1. 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 2. Bilateral pleural effusion. 3. Rule out bibasilar pneumonia. 4. End-stage renal disease on hemodialysis. 5. Staghorn calculus involving the right kidney. 6. Anemia. 7. Constipation. RECOMMENDATIONS: Continue aspirin 81 mg once a day, Coreg at 3.125 mg twice a day, heparin 5000 units subcutaneously every 8 hours, IV Procrit 06584 units Monday, Monday and Monday, Zosyn 2.25 gm intravenously every 8 hours. The patient will most likely undergo hemodialysis tomorrow and following that he will be scheduled for transesophageal echocardiographic study once he is more stable. I did request lactulose to be given as single dose for the patient's constipation. Mc Miner MD
[2018-02-19] MEDS: Piperacill/Tazo 2.25gm in Dex 2.25 GM/50 ML BAG IVPB SCH ×2 (01:57→12:35)
[2018-02-19] MEDS: Oxycodone/Acetaminophen 5/325 mg Tab PO PRN ×2 (08:25→17:01)
[2018-02-19] MEDS: Pantoprazole 40 mg EC Tab PO SCH ×2 (08:36→10:19)
--- NOTE | 2018-02-19 08:48 | CP.PCM.PN ---
Subjective - Date & Time of Evaluation Date of Evaluation: 02/19/18 Time of Evaluation: 08:46 - Subjective Subjective: c/o SOB Has increased rales on IV ABs for UTI same CVAT Objective - Vital Signs/Intake and Output Vital Signs (last 24 hours): Temp Pulse Resp BP Pulse Ox 98.6 F 72 20 147/60 97 02/18/18 23:20 02/19/18 04:00 02/18/18 23:20 02/18/18 23:20 02/18/18 23:20 - Medications Medications: Current Medications Acetaminophen (Tylenol 325mg Tab) 650 mg PO Q6 PRN PRN Reason: Fever >100.4 F Alprazolam (Xanax) 0.5 mg PO BID PRN PRN Reason: Anxiety Last Admin: 02/19/18 08:27 Dose: 0.5 mg Aspirin (Aspirin Chewable) 81 mg PO DAILY [facility] Last Admin: 02/18/18 09:54 Dose: 81 mg Carvedilol (Coreg) 3.125 mg PO DAILY [facility] Last Admin: 02/18/18 09:54 Dose: 3.125 mg Epoetin Zain (Procrit) 10,000 unit IV MWF [facility] Last Admin: 02/16/18 15:40 Dose: 10,000 unit Ferrous Sulfate (Feosol) 325 mg PO BID [facility] Last Admin: 02/18/18 17:49 Dose: 325 mg Heparin Sodium (Porcine) (Heparin) 5,000 units SC Q8 [facility] Last Admin: 02/19/18 06:55 Dose: 5,000 units Piperacillin Sod/Tazobactam Sod (Zosyn 2.25 Gm Iv Premix) 2.25 gm in 50 mls @ 100 mls/hr IVPB Q8H [facility] PRN Reason: Protocol Last Admin: 02/19/18 01:57 Dose: 100 mls/hr Oxycodone HCl (Oxycontin Extended Release Tab) 20 mg PO Q12 [facility] Last Admin: 02/18/18 21:43 Dose: 20 mg Oxycodone/Acetaminophen (Percocet 5/325 Mg Tab) 2 tab PO Q4H PRN PRN Reason: Pain, moderate (4-7) Stop: 02/20/18 08:20 Last Admin: 02/19/18 08:25 Dose: 2 tab Pantoprazole Sodium (Protonix Ec Tab) 40 mg PO DAILY [facility] Last Admin: 02/19/18 08:36 Dose: 40 mg Sevelamer Carbonate (Renvela) 1,600 mg PO TID [facility] Last Admin: 02/18/18 17:50 Dose: 1,600 mg Tamsulosin HCl (Flomax) 0.4 mg PO DAILY [facility] Last Admin: 02/18/18 09:54 Dose: 0.4 mg - Labs Labs: 02/15/18 15:52 02/15/18 15:52 PT 14.8 SECONDS (9.7-12.2) H 02/09/18 15:05 INR 1.4 02/09/18 15:05 APTT 36 SECONDS (21-34) H 02/09/18 15:05 - Constitutional Appears: No Acute Distress, Chronically Ill - Head Exam Head Exam: ATRAUMATIC, NORMAL INSPECTION - Eye Exam Eye Exam: EOMI, Normal appearance - Neck Exam Neck Exam: Normal Inspection. absent: Tenderness - Respiratory Exam Respiratory Exam: Rhonchi, Respiratory Distress - Cardiovascular Exam Cardiovascular Exam: REGULAR RHYTHM, +S1 - GI/Abdominal Exam GI & Abdominal Exam: Soft. absent: Tenderness - Extremities Exam Extremities Exam: Normal Inspection. absent: Tenderness - Neurological Exam Neurological Exam: Awake, CN II-XII Intact - Skin Skin Exam: Dry, Warm Assessment and Plan (1) Chronic pyelonephritis Status: Acute (2) ESRD (end stage renal disease) Status: Acute (3) Xanthogranulomatous pyelonephritis Status: Acute - Assessment and Plan (Free Text) Plan: increased UF with HD today IV ABs
[2018-02-19] MEDS: oxyCODONE 20 mg ER Tab (oxyCONTIN) PO SCH ×2 (10:18→22:23)
[2018-02-19] MEDS: Epoetin Alfa 10,000 unit/ml Dialysis IV SCH (12:36)
[2018-02-19] MEDS: Penicillin G Potassium 2.5 MU in Dextrose 5% In Water 50 ML IV SCH ×3 (14:16→20:29)
[2018-02-19] MEDS: Vancomycin 1 gm/NS 200 ml 1 GM/200 ML BAG IVPB SCH (17:42)
--- NOTE | 2018-02-19 20:14 | CP.PCM.PN ---
Subjective - Date & Time of Evaluation Date of Evaluation: 02/19/18 Time of Evaluation: 14:35 - Subjective Subjective: dictated Objective - Vital Signs/Intake and Output Vital Signs (last 24 hours): Temp Pulse Resp BP Pulse Ox 98.8 F 74 20 128/51 L 97 02/19/18 15:00 02/19/18 15:00 02/19/18 15:00 02/19/18 15:00 02/19/18 15:00 Intake and Output: 02/19/18 02/20/18 18:59 06:59 Intake Total 530 Balance 530 - Medications Medications: Current Medications Acetaminophen (Tylenol 325mg Tab) 650 mg PO Q6 PRN PRN Reason: Fever >100.4 F Alprazolam (Xanax) 0.5 mg PO BID PRN PRN Reason: Anxiety Last Admin: 02/19/18 08:27 Dose: 0.5 mg Aspirin (Aspirin Chewable) 81 mg PO DAILY [facility] Last Admin: 02/19/18 14:15 Dose: 81 mg Carvedilol (Coreg) 3.125 mg PO DAILY [facility] Last Admin: 02/19/18 10:18 Dose: Not Given Epoetin Zain (Procrit) 10,000 unit IV MWF [facility] Last Admin: 02/19/18 12:36 Dose: 10,000 unit Ferrous Sulfate (Feosol) 325 mg PO BID [facility] Last Admin: 02/19/18 17:41 Dose: 325 mg Heparin Sodium (Porcine) (Heparin) 5,000 units SC Q8 [facility] Last Admin: 02/19/18 14:14 Dose: 5,000 units Penicillin G Potassium 2.5 mu/ (Dextrose) 50 mls @ 100 mls/hr IV Q4H [facility] PRN Reason: Protocol Last Admin: 02/19/18 18:57 Dose: 100 mls/hr Gentamicin Sulfate 80 mg/ (Sodium Chloride) 102 mls @ 100 mls/hr IVPB [facility] PRN Reason: Protocol Last Admin: 02/19/18 16:47 Dose: 100 mls/hr Vancomycin/Sodium Chloride (Vancomycin 1 Gm/Ns 200 Ml) 1 gm in 200 mls @ 133.333 mls/hr IVPB MWF [facility] PRN Reason: Protocol Stop: 02/24/18 16:01 Last Admin: 02/19/18 17:42 Dose: 133.333 mls/hr Lactulose (Enulose) 20 gm PO HS [facility] Oxycodone HCl (Oxycontin Extended Release Tab) 20 mg PO Q12 [facility] Last Admin: 02/19/18 10:18 Dose: Not Given Oxycodone/Acetaminophen (Percocet 5/325 Mg Tab) 2 tab PO Q4H PRN PRN Reason: Pain, moderate (4-7) Stop: 02/20/18 08:20 Last Admin: 02/19/18 17:01 Dose: 2 tab Pantoprazole Sodium (Protonix Ec Tab) 40 mg PO DAILY [facility] Last Admin: 02/19/18 10:19 Dose: Not Given Sevelamer Carbonate (Renvela) 1,600 mg PO TID [facility] Last Admin: 02/19/18 17:42 Dose: 1,600 mg Tamsulosin HCl (Flomax) 0.4 mg PO DAILY [facility] Last Admin: 02/19/18 14:14 Dose: 0.4 mg - Labs Labs: 02/15/18 15:52 02/15/18 15:52 PT 14.8 SECONDS (9.7-12.2) H 02/09/18 15:05 INR 1.4 02/09/18 15:05 APTT 36 SECONDS (21-34) H 02/09/18 15:05
--- NOTE | 2018-02-19 21:18 | PN ---
DATE: 02/19/2018 SUBJECTIVE: The patient underwent hemodialysis today who states subsequent improvement of his shortness of breath. PHYSICAL EXAMINATION: VITAL SIGNS: Blood pressure 129/56, heart rate 75, temperature 97.3, and respirations 18. HEENT: Pale conjunctivae. CHEST: Bilateral rhonchi. HEART: S1 and S2 are regular. EXTREMITIES: No edema. LABORATORY DATA: Chest CT angio performed yesterday was a limited study for evaluation of pulmonary emboli. Scattered multiple bilateral pulmonary nodules/ground glass nodules found throughout the lungs. It is may be secondary to an acute infectious or inflammatory process. Moderate right small pleural effusion. Bibasilar consolidative changes. ASSESSMENT: 1. Streptococcal bacteremia. 2. Bacterial endocarditis involving the mitral and aortic valves. 3. End-stage renal disease. 4. Staghorn calculus in the right kidney with hydronephrosis and hydroureter. RECOMMENDATIONS: Continue aspirin 81 mg once a day, gentamicin 80 mg intravenously on Monday, Monday and Monday, subcutaneous heparin 5000 units every 8 hours, and vancomycin 1 g intravenously on Monday, Monday and Monday. The patient will be kept n.p.o. after midnight for MANDIE at 1:00 p.m. Procedure and its risks were explained to the patient who understood and agreed for the procedure. Mc Miner MD
--- NOTE | 2018-02-19 22:53 | CP.PCM.PN ---
Objective - Vital Signs/Intake and Output Vital Signs (last 24 hours): Temp Pulse Resp BP Pulse Ox 98.8 F 74 20 128/51 L 97 02/19/18 15:00 02/19/18 15:00 02/19/18 15:00 02/19/18 15:00 02/19/18 15:00 Intake and Output: 02/19/18 02/20/18 18:59 06:59 Intake Total 530 Balance 530 - Medications Medications: Current Medications Acetaminophen (Tylenol 325mg Tab) 650 mg PO Q6 PRN PRN Reason: Fever >100.4 F Alprazolam (Xanax) 0.5 mg PO BID PRN PRN Reason: Anxiety Last Admin: 02/19/18 08:27 Dose: 0.5 mg Aspirin (Aspirin Chewable) 81 mg PO DAILY [facility] Last Admin: 02/19/18 14:15 Dose: 81 mg Carvedilol (Coreg) 3.125 mg PO DAILY [facility] Last Admin: 02/19/18 10:18 Dose: Not Given Epoetin Zain (Procrit) 10,000 unit IV [facility] Last Admin: 02/19/18 12:36 Dose: 10,000 unit Ferrous Sulfate (Feosol) 325 mg PO BID [facility] Last Admin: 02/19/18 17:41 Dose: 325 mg Heparin Sodium (Porcine) (Heparin) 5,000 units SC Q8 [facility] Last Admin: 02/19/18 22:24 Dose: 5,000 units Penicillin G Potassium 2.5 mu/ (Dextrose) 50 mls @ 100 mls/hr IV Q4H [facility] PRN Reason: Protocol Last Admin: 02/19/18 20:29 Dose: 100 mls/hr Gentamicin Sulfate 80 mg/ (Sodium Chloride) 102 mls @ 100 mls/hr IVPB [facility] PRN Reason: Protocol Last Admin: 02/19/18 16:47 Dose: 100 mls/hr Vancomycin/Sodium Chloride (Vancomycin 1 Gm/Ns 200 Ml) 1 gm in 200 mls @ 133.333 mls/hr IVPB [facility] PRN Reason: Protocol Stop: 02/24/18 16:01 Last Admin: 02/19/18 17:42 Dose: 133.333 mls/hr Lactulose (Enulose) 20 gm PO [facility] Last Admin: 02/19/18 22:22 Dose: 20 gm Oxycodone HCl (Oxycontin Extended Release Tab) 20 mg PO Q12 [facility] Last Admin: 02/19/18 22:23 Dose: 20 mg Oxycodone/Acetaminophen (Percocet 5/325 Mg Tab) 2 tab PO Q4H PRN PRN Reason: Pain, moderate (4-7) Stop: 02/20/18 08:20 Last Admin: 02/19/18 17:01 Dose: 2 tab Pantoprazole Sodium (Protonix Ec Tab) 40 mg PO DAILY [facility] Last Admin: 02/19/18 10:19 Dose: Not Given Sevelamer Carbonate (Renvela) 1,600 mg PO TID [facility] Last Admin: 02/19/18 17:42 Dose: 1,600 mg Tamsulosin HCl (Flomax) 0.4 mg PO DAILY [facility] Last Admin: 02/19/18 14:14 Dose: 0.4 mg - Labs Labs: 02/15/18 15:52 02/15/18 15:52 PT 14.8 SECONDS (9.7-12.2) H 02/09/18 15:05 INR 1.4 02/09/18 15:05 APTT 36 SECONDS (21-34) H 02/09/18 15:05 Assessment and Plan (1) Renal infection Status: Acute (2) CKD (chronic kidney disease) Status: Chronic (3) Hepatitis C Status: Chronic (4) Nephrolithiasis Status: Chronic
--- NOTE | 2018-02-20 00:58 | PN ---
DATE: 02/19/2018 SUBJECTIVE: Wei Frank was seen today. His echo was read and echo shows a vegetation on the mitral valve. He is due for a MANDIE, and he was seen by Dr. Patel for me on 02/16, and at that time, he had Peptostreptococcus, and he was reluctant to get his kidney out at this time. The patient today was miserable. He complained of epigastric pain. He said he was coughing a lot which is new. He has been having abdominal pain. His breathing has been not well before. He just came from dialysis. I discussed with him that his cultures are positive for Peptostreptococcus, and he has endocarditis. We will need a MANDIE, and this infection may have spread to the lungs and may be causing him the cough, and we will discuss with Dr. Schmitt as Dr. Schmitt is on the case right now, and he was already on vancomycin, Zosyn, and and did not improve, so I will change it to penicillin G to cover for endocarditis and leave him on vancomycin and gentamicin for now. He says that he was feeling little better on the kidney, and there was less pain but he still had lot of complaints. PHYSICAL EXAMINATION: VITAL SIGNS: T max is 98.8, pulse 74, blood pressure 128/51, respirations are 20. HEENT: Head is atraumatic, normocephalic. GENERAL: He appeared sick looking. NECK: Supple. LUNGS: Have decreased breath sounds. HEART: S1, S2 regular. ABDOMEN: Soft, nontender. No guarding, no rigidity present. EXTREMITIES: Have no edema. He does have a lot of tattoo gallego. He will need 6 weeks of treatment, and he needs to get a MANDIE done as echo is already showing vegetation; and it was discussed with him also, the CAT scan, chest CT which was done on 02/18 shows limited study for evaluation of pulmonary emboli, given suboptimal contrast timing bolus and prominent motion artifact, no central embolism, more limited evaluation of segmental and subsegmental branches, increased radiodensity calcification seen at the level of right lower lobe pulmonary arteries, scattered multiple bilateral pulmonary nodules or ground-glass nodule seen throughout the lung as described above. This may be secondary to an acute infectious or inflammatory process. Interval followup chest CT to ensure resolution and exclude additional etiology. Moderate right and left pleural effusion, bibasilar consolidative changes and atelectasis. 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 We will discuss with the Renal, needs the Cardiology to look into MANDIE, and I have continued antibiotics, will need for 6 weeks. Antonella Sexton MD
[2018-02-20] MEDS: Penicillin G Potassium 2.5 MU in Dextrose 5% In Water 50 ML IV SCH ×2 (01:39→04:11)
--- NOTE | 2018-02-20 07:38 | PN ---
DATE: 02/19/2018 SUBJECTIVE: The patient is status post cystoscopy. He is afebrile. His CT angio was negative, but he has fluid in the lung, possible infiltrate. He feels better. He has been seen by ID. PHYSICAL EXAMINATION: VITAL SIGNS: Blood pressure 128/51, pulse 74, respiratory rate 20, temperature 98.8. LUNGS: Bilateral rales. Decreased air entry. CARDIOVASCULAR SYSTEM: S1 and S2 are regular. ABDOMEN: Soft. ASSESSMENT: 1. Obstructive uropathy with nephrolithiasis. 2. Hepatitis C. 3. Nephrolithiasis with staghorn calculus. 4. End-stage renal disease, on hemodialysis. PLAN: Admit. Plan antibiotics. Monitor the patient. Mikel Marc MD
--- NOTE | 2018-02-20 09:07 | CP.PCM.PN ---
Subjective - Date & Time of Evaluation Date of Evaluation: 02/20/18 Time of Evaluation: 09:04 - Subjective Subjective: s/p dialysis 02/19- UF 5000ml Still c/o SOB, but lying flat now workup for SBE being considered on IV ABs Objective - Vital Signs/Intake and Output Vital Signs (last 24 hours): Temp Pulse Resp BP Pulse Ox 98.1 F 74 18 120/80 98 02/20/18 07:45 02/20/18 07:45 02/20/18 07:45 02/20/18 07:45 02/20/18 07:45 Intake and Output: 02/20/18 02/20/18 06:59 18:59 Intake Total 640 Balance 640 - Medications Medications: Current Medications Acetaminophen (Tylenol 325mg Tab) 650 mg PO Q6 PRN PRN Reason: Fever >100.4 F Alprazolam (Xanax) 0.5 mg PO BID PRN PRN Reason: Anxiety Last Admin: 02/19/18 08:27 Dose: 0.5 mg Aspirin (Aspirin Chewable) 81 mg PO DAILY [facility] Last Admin: 02/19/18 14:15 Dose: 81 mg Carvedilol (Coreg) 3.125 mg PO DAILY [facility] Last Admin: 02/19/18 10:18 Dose: Not Given Epoetin Zani (Procrit) 10,000 unit IV MWF [facility] Last Admin: 02/19/18 12:36 Dose: 10,000 unit Ferrous Sulfate (Feosol) 325 mg PO BID [facility] Last Admin: 02/19/18 17:41 Dose: 325 mg Heparin Sodium (Porcine) (Heparin) 5,000 units SC Q8 [facility] Last Admin: 02/20/18 05:07 Dose: Not Given Gentamicin Sulfate 80 mg/ (Sodium Chloride) 102 mls @ 100 mls/hr IVPB M[facility] PRN Reason: Protocol Last Admin: 02/19/18 16:47 Dose: 100 mls/hr Vancomycin/Sodium Chloride (Vancomycin 1 Gm/Ns 200 Ml) 1 gm in 200 mls @ 133.333 mls/hr IVPB MWF [facility] PRN Reason: Protocol Stop: 02/24/18 16:01 Last Admin: 02/19/18 17:42 Dose: 133.333 mls/hr Penicillin G Potassium 2.5 mu/ (Dextrose) 50 mls @ 100 mls/hr IV Q6 [facility] PRN Reason: Protocol Lactulose (Enulose) 20 gm PO HS [facility] Last Admin: 02/19/18 22:22 Dose: 20 gm Oxycodone HCl (Oxycontin Extended Release Tab) 20 mg PO Q12 [facility] Last Admin: 02/19/18 22:23 Dose: 20 mg Pantoprazole Sodium (Protonix Ec Tab) 40 mg PO DAILY [facility] Last Admin: 02/19/18 10:19 Dose: Not Given Sevelamer Carbonate (Renvela) 1,600 mg PO TID [facility] Last Admin: 02/19/18 17:42 Dose: 1,600 mg Tamsulosin HCl (Flomax) 0.4 mg PO DAILY [facility] Last Admin: 02/19/18 14:14 Dose: 0.4 mg - Labs Labs: 02/15/18 15:52 02/15/18 15:52 PT 14.8 SECONDS (9.7-12.2) H 02/09/18 15:05 INR 1.4 02/09/18 15:05 APTT 36 SECONDS (21-34) H 02/09/18 15:05 - Constitutional Appears: No Acute Distress, Chronically Ill - Head Exam Head Exam: ATRAUMATIC, NORMAL INSPECTION - Eye Exam Eye Exam: EOMI, Normal appearance - Neck Exam Neck Exam: Normal Inspection. absent: Tenderness - Respiratory Exam Respiratory Exam: Clear to Ausculation Bilateral, NORMAL BREATHING PATTERN - Cardiovascular Exam Cardiovascular Exam: REGULAR RHYTHM, +S1 - GI/Abdominal Exam GI & Abdominal Exam: Soft. absent: Tenderness - Extremities Exam Extremities Exam: Normal Inspection. absent: Tenderness - Neurological Exam Neurological Exam: Awake, CN II-XII Intact - Skin Skin Exam: Dry, Warm Assessment and Plan (1) Chronic pyelonephritis Status: Acute (2) ESRD (end stage renal disease) Status: Acute (3) Xanthogranulomatous pyelonephritis Status: Acute - Assessment and Plan (Free Text) Plan: IV ABs Increase UF with dialysis MWF Would consider NEPHRECTOMY as kidney is persistent source of infection
[2018-02-20] MEDS: oxyCODONE 20 mg ER Tab (oxyCONTIN) PO SCH ×2 (10:00→21:12)
[2018-02-20] MEDS: Pantoprazole 40 mg EC Tab PO SCH (10:15)
[2018-02-20] MEDS ORDERED: Penicillin G Potassium 2.5 MU in Dextrose 5% In Water 50 ML IV SCH (12:00)
[2018-02-20] MEDS: PENICILLIN POTASSIUM MU IV SCH ×2 (12:15→18:50)
[2018-02-20] MEDS: DEXTROSE IV SCH ×2 (12:15→18:50)
[2018-02-20] MEDS: WATER IV SCH ×2 (12:15→18:50)
[2018-02-20] MEDS ORDERED: Lidocaine 4% (Laryng-O-Jet) Kit MM ONE (13:43)
[2018-02-20] MEDS ORDERED: Midazolam 2 MG/2 ML VIAL ONE ×2 (14:09→14:12)
[2018-02-20] MEDS ORDERED: Propofol 10 mg/ml Inj (20 ML) ONE ×2 (14:10→14:12)
[2018-02-20] MEDS ORDERED: Etomidate 20 mg/10ml Inj IV ONE ×2 (14:12)
--- NOTE | 2018-02-20 16:54 | CARD ---
APPROVED REPORT Date of service: 02/20/2018 EXAM: Two-dimensional and M-mode echocardiogram with Doppler and color Doppler. INDICATION Aortic Valve Disease Infection : Rule out subacute bacterial endocarditis Reason For Test : Rule out endocarditis. PROCEDURE After obtaining informed consent, patient underwent transesophageal echo in the [employer]. Type of Sedation : Sedation was provided by anesthesiologist. Sedation was achieved with intravenously. Transesophageal probe was inserted and advanced into esophagus without difficulty. The MANDIE was performed without complications. Throughout the procedure, the blood pressure, pulse oximetry, cardiac rhythm, and rate were monitored. The patient tolerated the procedure without adverse effects. Recovery from conscious sedation was uneventful and vital signs were stable. LEFT VENTRICLE The left ventricle is normal size. There is normal left ventricular wall thickness. The left ventricular function is normal. The left ventricular ejection fraction is within the normal range. There is normal LV segmental wall motion. AORTIC VALVE There is severe aortic regurgitation. There is moderate size prolapsing aortic valvular vegetation. MITRAL VALVE The mitral valve leaflets are thickened. Mitral regurgitation is moderate. TRICUSPID VALVE The tricuspid valve is normal in structure. There is no tricuspid valve regurgitation noted. PULMONIC VALVE The pulmonary valve is normal in structure. There is no pulmonic valvular regurgitation. GREAT VESSELS The aortic root is normal in size. <Conclusion> There is moderate size prolapsing aortic valvular vegetation. There is severe aortic regurgitation. The mitral valve leaflets are thickened. Mitral regurgitation is moderate.
--- NOTE | 2018-02-20 22:42 | CP.PCM.PN ---
Objective - Vital Signs/Intake and Output Vital Signs (last 24 hours): Temp Pulse Resp BP Pulse Ox 97.8 F 74 20 131/62 95 02/20/18 16:00 02/20/18 21:12 02/20/18 21:12 02/20/18 21:12 02/20/18 16:00 Intake and Output: 02/20/18 02/21/18 18:59 06:59 Intake Total 0 Balance 0 - Medications Medications: Current Medications Acetaminophen (Tylenol 325mg Tab) 650 mg PO Q6 PRN PRN Reason: Fever >100.4 F Alprazolam (Xanax) 0.5 mg PO BID PRN PRN Reason: Anxiety Last Admin: 02/20/18 19:03 Dose: 0.5 mg Aspirin (Aspirin Chewable) 81 mg PO DAILY [facility] Last Admin: 02/20/18 10:00 Dose: Not Given Carvedilol (Coreg) 3.125 mg PO DAILY [facility] Last Admin: 02/20/18 10:00 Dose: Not Given Epoetin Zain (Procrit) 10,000 unit IV [facility] Last Admin: 02/19/18 12:36 Dose: 10,000 unit Ferrous Sulfate (Feosol) 325 mg PO BID [facility] Last Admin: 02/20/18 18:51 Dose: 325 mg Heparin Sodium (Porcine) (Heparin) 5,000 units SC Q8 [facility] Last Admin: 02/20/18 22:37 Dose: 5,000 units Gentamicin Sulfate 80 mg/ (Sodium Chloride) 102 mls @ 100 mls/hr IVPB [facility] PRN Reason: Protocol Last Admin: 02/19/18 16:47 Dose: 100 mls/hr Vancomycin/Sodium Chloride (Vancomycin 1 Gm/Ns 200 Ml) 1 gm in 200 mls @ 133.333 mls/hr IVPB [facility] PRN Reason: Protocol Stop: 02/24/18 16:01 Last Admin: 02/19/18 17:42 Dose: 133.333 mls/hr Penicillin G Potassium 4 mu/ (Dextrose) 50 mls @ 100 mls/hr IV Q6 [facility] PRN Reason: Protocol Last Admin: 02/20/18 18:50 Dose: 100 mls/hr Lactulose (Enulose) 20 gm PO [facility] Last Admin: 02/20/18 21:16 Dose: Not Given Oxycodone HCl (Oxycontin Extended Release Tab) 20 mg PO Q12 [facility] Last Admin: 02/20/18 21:12 Dose: 20 mg Oxycodone/Acetaminophen (Percocet 5/325 Mg Tab) 2 tab PO Q4H PRN PRN Reason: Pain, moderate (4-7) Stop: 02/23/18 20:13 Pantoprazole Sodium (Protonix Ec Tab) 40 mg PO DAILY [facility] Last Admin: 02/20/18 10:15 Dose: Not Given Sevelamer Carbonate (Renvela) 1,600 mg PO TID [facility] Last Admin: 02/20/18 18:51 Dose: 1,600 mg Tamsulosin HCl (Flomax) 0.4 mg PO DAILY [facility] Last Admin: 02/20/18 10:00 Dose: Not Given - Labs Labs: 02/15/18 15:52 02/15/18 15:52 PT 14.8 SECONDS (9.7-12.2) H 02/09/18 15:05 INR 1.4 02/09/18 15:05 APTT 36 SECONDS (21-34) H 02/09/18 15:05 Assessment and Plan (1) Renal infection Status: Acute (2) CKD (chronic kidney disease) Status: Chronic (3) Hepatitis C Status: Chronic (4) Nephrolithiasis Status: Chronic
[2018-02-20] MEDS: Oxycodone/Acetaminophen 5/325 mg Tab PO PRN (23:03)
[2018-02-21] MEDS: DEXTROSE IV SCH ×5 (00:44→23:52)
[2018-02-21] MEDS: WATER IV SCH ×5 (00:44→23:52)
[2018-02-21] MEDS: PENICILLIN POTASSIUM MU IV SCH ×5 (00:44→23:52)
--- NOTE | 2018-02-21 03:53 | PN ---
DATE: 02/20/2018 SUBJECTIVE: The patient feels better. He underwent a transesophageal echocardiogram, and there is infective endocarditis on his aortic valve with a vegetation. PHYSICAL EXAMINATION: VITAL SIGNS: Blood pressure 131/62, pulse 74, respiratory rate 20, temperature 97.8. LUNGS: Bilateral rales. CARDIOVASCULAR SYSTEM: S1 and S2 plus ejection systolic murmur. ABDOMEN: Soft. ASSESSMENT: 1. Aortic valve vegetation. Blood cultures are negative. 2. Obstructive uropathy with a staghorn calculus with pyelonephritis. 3. Hypertension. 4. Chronic kidney disease. PLAN: Cardiothoracic surgical consult. Monitor the patient Mikel Marc MD
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
[2018-02-21] MEDS: Oxycodone/Acetaminophen 5/325 mg Tab PO PRN ×3 (06:26→21:34)
[2018-02-21] MEDS: Pantoprazole 40 mg EC Tab PO SCH ×2 (08:50→10:58)
[2018-02-21] MEDS ORDERED: Vancomycin 1 gm/NS 200 ml 1 GM/200 ML BAG IVPB SCH (09:00)
--- NOTE | 2018-02-21 09:04 | PCM.URO ---
Urology Progress Note - Objective Lab Studies: Reviewed (no gu changes for now we will consider removal of stent vs percutaneous nephrostolithotomy under full anesthesia all can be done in the future) Intake & Output: Intake & Output 02/20/18 02/21/18 02/21/18 18:59 06:59 18:59 Intake Total 0 410 Balance 0 410 Intake: Intake, IV Amount 50 Right Forearm 50 Oral 0 360 Other: # Voids Urine, Voided 1 5 # Bowel Movements 0 0 Vital Signs: Vital Signs - 24 hr 02/20/18 02/20/18 02/20/18 16:00 18:00 21:12 Temperature 97.8 F Pulse Rate 70 70 74 Respiratory 20 20 Rate Blood Pressure 128/55 L 131/62 O2 Sat by Pulse 95 Oximetry 02/20/18 02/20/18 02/21/18 23:30 23:40 06:00 Temperature 98.4 F 98.2 F Pulse Rate 76 70 Respiratory 20 Rate Blood Pressure 120/68 O2 Sat by Pulse 95 Oximetry 02/21/18 02/21/18 07:00 08:00 Temperature 98.2 F Pulse Rate 80 71 Respiratory 20 Rate Blood Pressure 156/67 H O2 Sat by Pulse 98 Oximetry
[2018-02-21] MEDS: oxyCODONE 20 mg ER Tab (oxyCONTIN) PO SCH ×2 (10:57→21:33)
[2018-02-21] MEDS: Epoetin Alfa 10,000 unit/ml Dialysis IV SCH (11:34)
[2018-02-21] MEDS: Vancomycin 1 gm/NS 200 ml 1 GM/200 ML BAG IVPB SCH (11:35)
--- NOTE | 2018-02-21 15:10 | CP.PCM.PN ---
Subjective - Date & Time of Evaluation Date of Evaluation: 02/21/18 Time of Evaluation: 15:07 - Subjective Subjective: echo with Ao valve vegetation 5 kg UF today on HD appears comfortable hard time with IV access good intake chronic anxiety decreased u/o no diarrhea no fever no chills no cough no palpitations chronic pain Objective - Vital Signs/Intake and Output Vital Signs (last 24 hours): Temp Pulse Resp BP Pulse Ox 97.9 F 69 16 137/49 L 97 02/21/18 12:45 02/21/18 12:45 02/21/18 12:45 02/21/18 12:45 02/21/18 12:45 Intake and Output: 02/21/18 02/21/18 06:59 18:59 Intake Total 410 600 Balance 410 600 - Medications Medications: Current Medications Acetaminophen (Tylenol 325mg Tab) 650 mg PO Q6 PRN PRN Reason: Fever >100.4 F Alprazolam (Xanax) 0.5 mg PO BID PRN PRN Reason: Anxiety Last Admin: 02/20/18 19:03 Dose: 0.5 mg Aspirin (Aspirin Chewable) 81 mg PO DAILY [facility] Last Admin: 02/21/18 10:56 Dose: Not Given Carvedilol (Coreg) 3.125 mg PO DAILY [facility] Last Admin: 02/21/18 10:56 Dose: Not Given Epoetin Zain (Procrit) 10,000 unit IV MWF [facility] Last Admin: 02/21/18 11:34 Dose: 10,000 unit Ferrous Sulfate (Feosol) 325 mg PO BID [facility] Last Admin: 02/21/18 10:57 Dose: Not Given Gentamicin Sulfate 80 mg/ (Sodium Chloride) 102 mls @ 100 mls/hr IVPB MWF [facility] PRN Reason: Protocol Last Admin: 02/21/18 13:52 Dose: 100 mls/hr Vancomycin/Sodium Chloride (Vancomycin 1 Gm/Ns 200 Ml) 1 gm in 200 mls @ 133.333 mls/hr IVPB MWF [facility] PRN Reason: Protocol Stop: 02/24/18 16:01 Last Admin: 02/21/18 11:35 Dose: 133.333 mls/hr Penicillin G Potassium 4 mu/ (Dextrose) 50 mls @ 100 mls/hr IV Q6 [facility] PRN Reason: Protocol Last Admin: 02/21/18 13:51 Dose: 100 mls/hr Lactulose (Enulose) 20 gm PO HS [facility] Last Admin: 02/20/18 21:16 Dose: Not Given Oxycodone HCl (Oxycontin Extended Release Tab) 20 mg PO Q12 [facility] Last Admin: 02/21/18 10:57 Dose: Not Given Oxycodone/Acetaminophen (Percocet 5/325 Mg Tab) 2 tab PO Q4H PRN PRN Reason: Pain, moderate (4-7) Stop: 02/23/18 20:13 Last Admin: 02/21/18 14:39 Dose: 2 tab Pantoprazole Sodium (Protonix Ec Tab) 40 mg PO DAILY [facility] Last Admin: 02/21/18 10:58 Dose: Not Given Sevelamer Carbonate (Renvela) 1,600 mg PO TID [facility] Last Admin: 02/21/18 13:54 Dose: 1,600 mg Tamsulosin HCl (Flomax) 0.4 mg PO DAILY [facility] Last Admin: 02/21/18 10:57 Dose: Not Given - Labs Labs: 02/15/18 15:52 02/15/18 15:52 PT 14.8 SECONDS (9.7-12.2) H 02/09/18 15:05 INR 1.4 02/09/18 15:05 APTT 36 SECONDS (21-34) H 02/09/18 15:05 - Constitutional Appears: Non-toxic, No Acute Distress - Head Exam Head Exam: ATRAUMATIC - Eye Exam Eye Exam: EOMI - ENT Exam ENT Exam: Mucous Membranes Moist - Neck Exam Neck Exam: Full ROM. absent: Lymphadenopathy - Respiratory Exam Respiratory Exam: Clear to Ausculation Bilateral - Cardiovascular Exam Cardiovascular Exam: REGULAR RHYTHM - GI/Abdominal Exam GI & Abdominal Exam: Soft, Tenderness - Extremities Exam Extremities Exam: absent: Pedal Edema - Neurological Exam Neurological Exam: Alert, Awake Assessment and Plan - Assessment and Plan (Free Text) Assessment: aortic valve endocarditis bacteremia chronic pyelonephritis dialysis dependent maint HD AB per ID consideration for valve replacement
--- NOTE | 2018-02-21 22:12 | CP.PCM.PN ---
Subjective - Date & Time of Evaluation Date of Evaluation: 02/21/18 Time of Evaluation: 18:30 - Subjective Subjective: dictated Objective - Vital Signs/Intake and Output Vital Signs (last 24 hours): Temp Pulse Resp BP Pulse Ox 99.0 F 71 20 126/70 98 02/21/18 15:10 02/21/18 15:10 02/21/18 15:10 02/21/18 15:10 02/21/18 15:10 Intake and Output: 02/21/18 02/22/18 18:59 06:59 Intake Total 600 Balance 600 - Medications Medications: Current Medications Acetaminophen (Tylenol 325mg Tab) 650 mg PO Q6 PRN PRN Reason: Fever >100.4 F Alprazolam (Xanax) 0.5 mg PO BID PRN PRN Reason: Anxiety Last Admin: 02/20/18 19:03 Dose: 0.5 mg Aspirin (Aspirin Chewable) 81 mg PO DAILY [facility] Last Admin: 02/21/18 10:56 Dose: Not Given Carvedilol (Coreg) 3.125 mg PO DAILY [facility] Last Admin: 02/21/18 10:56 Dose: Not Given Epoetin Zain (Procrit) 10,000 unit IV MWF [facility] Last Admin: 02/21/18 11:34 Dose: 10,000 unit Ferrous Sulfate (Feosol) 325 mg PO BID [facility] Last Admin: 02/21/18 18:11 Dose: 325 mg Gentamicin Sulfate 80 mg/ (Sodium Chloride) 102 mls @ 100 mls/hr IVPB MWF [facility] PRN Reason: Protocol Last Admin: 02/21/18 13:52 Dose: 100 mls/hr Vancomycin/Sodium Chloride (Vancomycin 1 Gm/Ns 200 Ml) 1 gm in 200 mls @ 133.333 mls/hr IVPB MWF [facility] PRN Reason: Protocol Stop: 02/24/18 16:01 Last Admin: 02/21/18 11:35 Dose: 133.333 mls/hr Penicillin G Potassium 4 mu/ (Dextrose) 50 mls @ 100 mls/hr IV Q6 [facility] PRN Reason: Protocol Last Admin: 02/21/18 18:11 Dose: 100 mls/hr Lactulose (Enulose) 20 gm PO [facility] Last Admin: 02/21/18 21:42 Dose: Not Given Oxycodone HCl (Oxycontin Extended Release Tab) 20 mg PO Q12 [facility] Last Admin: 02/21/18 21:33 Dose: 20 mg Oxycodone/Acetaminophen (Percocet 5/325 Mg Tab) 2 tab PO Q4H PRN PRN Reason: Pain, moderate (4-7) Stop: 02/23/18 20:13 Last Admin: 02/21/18 21:34 Dose: 2 tab Pantoprazole Sodium (Protonix Ec Tab) 40 mg PO DAILY [facility] Last Admin: 02/21/18 10:58 Dose: Not Given Sevelamer Carbonate (Renvela) 1,600 mg PO TID [facility] Last Admin: 02/21/18 18:11 Dose: 1,600 mg Tamsulosin HCl (Flomax) 0.4 mg PO DAILY [facility] Last Admin: 02/21/18 10:57 Dose: Not Given - Labs Labs: 02/15/18 15:52 02/15/18 15:52 PT 14.8 SECONDS (9.7-12.2) H 02/09/18 15:05 INR 1.4 02/09/18 15:05 APTT 36 SECONDS (21-34) H 02/09/18 15:05
--- NOTE | 2018-02-21 22:40 | CP.PCM.PN ---
Objective - Vital Signs/Intake and Output Vital Signs (last 24 hours): Temp Pulse Resp BP Pulse Ox 99.0 F 71 20 126/70 98 02/21/18 15:10 02/21/18 15:10 02/21/18 15:10 02/21/18 15:10 02/21/18 15:10 Intake and Output: 02/21/18 02/22/18 18:59 06:59 Intake Total 600 Balance 600 - Medications Medications: Current Medications Acetaminophen (Tylenol 325mg Tab) 650 mg PO Q6 PRN PRN Reason: Fever >100.4 F Alprazolam (Xanax) 0.5 mg PO BID PRN PRN Reason: Anxiety Last Admin: 02/20/18 19:03 Dose: 0.5 mg Aspirin (Aspirin Chewable) 81 mg PO DAILY [facility] Last Admin: 02/21/18 10:56 Dose: Not Given Carvedilol (Coreg) 3.125 mg PO DAILY [facility] Last Admin: 02/21/18 10:56 Dose: Not Given Epoetin Zain (Procrit) 10,000 unit IV MWF [facility] Last Admin: 02/21/18 11:34 Dose: 10,000 unit Ferrous Sulfate (Feosol) 325 mg PO BID [facility] Last Admin: 02/21/18 18:11 Dose: 325 mg Gentamicin Sulfate 80 mg/ (Sodium Chloride) 102 mls @ 100 mls/hr IVPB MWF [facility] PRN Reason: Protocol Last Admin: 02/21/18 13:52 Dose: 100 mls/hr Vancomycin/Sodium Chloride (Vancomycin 1 Gm/Ns 200 Ml) 1 gm in 200 mls @ 133.333 mls/hr IVPB [facility] [place]N Reason: Protocol Stop: 02/24/18 16:01 Last Admin: 02/21/18 11:35 Dose: 133.333 mls/hr Penicillin G Potassium 4 mu/ (Dextrose) 50 mls @ 100 mls/hr IV Q6 [facility] PRN Reason: Protocol Last Admin: 02/21/18 18:11 Dose: 100 mls/hr Lactulose (Enulose) 20 gm PO HS [facility] Last Admin: 02/21/18 21:42 Dose: Not Given Oxycodone HCl (Oxycontin Extended Release Tab) 20 mg PO Q12 [facility] Last Admin: 02/21/18 21:33 Dose: 20 mg Oxycodone/Acetaminophen (Percocet 5/325 Mg Tab) 2 tab PO Q4H PRN PRN Reason: Pain, moderate (4-7) Stop: 02/23/18 20:13 Last Admin: 02/21/18 21:34 Dose: 2 tab Pantoprazole Sodium (Protonix Ec Tab) 40 mg PO DAILY [facility] Last Admin: 02/21/18 10:58 Dose: Not Given Sevelamer Carbonate (Renvela) 1,600 mg PO TID [facility] Last Admin: 02/21/18 18:11 Dose: 1,600 mg Tamsulosin HCl (Flomax) 0.4 mg PO DAILY [facility] Last Admin: 02/21/18 10:57 Dose: Not Given - Labs Labs: 02/15/18 15:52 02/15/18 15:52 PT 14.8 SECONDS (9.7-12.2) H 02/09/18 15:05 INR 1.4 02/09/18 15:05 APTT 36 SECONDS (21-34) H 02/09/18 15:05 Assessment and Plan (1) Renal infection Status: Acute (2) CKD (chronic kidney disease) Status: Chronic (3) Hepatitis C Status: Chronic (4) Nephrolithiasis Status: Chronic
--- NOTE | 2018-02-21 22:41 | PN ---
DATE: 02/21/2018 FOLLOWUP SUBJECTIVE: The patient denies any shortness of breath or chest discomfort. PHYSICAL EXAMINATION: VITAL SIGNS: Blood pressure 126/70, heart 71, temperature 99, respirations 20. HEENT: Normocephalic. CHEST: Clear. HEART: S1, S2 are regular. EXTREMITIES: No edema. ASSESSMENT: 1. 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 2. Streptococcus bacteremia. 3. End-stage renal disease, on hemodialysis. 4. Staghorn right kidney stones, status post ureteric stenting. RECOMMENDATIONS: Case was discussed with Dr. Mikel Marc and with Dr. Trujillo, cardiothoracic surgeon who was requested for consultation. The issue of current and future ureteric stenting should be addressed prior to aortic valve replacement, and the case will be discussed with Dr. Ferro as present stent and future instrumentation can result in infected valve prosthesis. In the meantime, the patient will be maintained on IV vancomycin and IV gentamicin. I did renew telemetry, and I will obtain 12-lead EKG today. Mc Miner MD
--- NOTE | 2018-02-22 03:14 | PN ---
DATE: 02/21/2018 SUBJECTIVE: The patient was seen today. He says his abdominal pain was little better. I told him that his kidney is in a very bad situation as this has caused Peptostreptococcus. He denies doing IV drugs since 2013. His echo has shown aortic valve vegetation. He denies any fever. He still says he is not able to breathe better. I told him he is on hemodialysis and if the kidney is with the stents and is causing problems with infection in the blood as he should get rid of the kidney as he has chronic infections in the kidney, and it is not helping him but giving him infections. PHYSICAL EXAMINATION: VITAL SIGNS: T-max is 97.9, pulse 69, blood pressure 137/49. HEENT: Head is atraumatic, normocephalic. NECK: Supple. LUNGS: Clear at this time. HEART: S1, S2 are regular. ABDOMEN: Soft, nontender. No guarding, no rigidity present. EXTREMITIES: Have no edema. He has a fistula in the left arm for the dialysis. ASSESSMENT AND PLAN: The patient is on multiple antibiotics at this time. I cannot get a peripherally inserted central catheter line as he is on dialysis, but he has difficult lines. I have placed him on penicillin for the Peptostreptococcus. I am keeping this gram-positive. They said it was the Peptostreptococcus species, so we are giving double covering it for now since he may need evaluation. There was Enterococcus other than Enterococcus faecalis and then Streptococcus species reported, so I will leave these on. I was telling him that he should get rid of the kidney also before they do any valve replacement as it may re-infect the new valve. It looks like he may have septic emboli as the chest CT which was read. The patient seems to understand, but I am not sure if he will get all these things done, which may straighten his life out better, and I will discuss with the Renal attending. So at this time, the patient remains on antibiotics. Cardiology evaluation is noted. Antonella Sexton MD
[2018-02-22] MEDS: WATER IV SCH ×4 (05:57→23:59)
[2018-02-22] MEDS: PENICILLIN POTASSIUM MU IV SCH ×4 (05:57→23:59)
[2018-02-22] MEDS: DEXTROSE IV SCH ×4 (05:57→23:59)
[2018-02-22] MEDS: Pantoprazole 40 mg EC Tab PO SCH (09:46)
[2018-02-22] MEDS: oxyCODONE 20 mg ER Tab (oxyCONTIN) PO SCH ×2 (09:47→22:09)
--- NOTE | 2018-02-22 10:04 | PN ---
DATE: 02/21/2018 SUBJECTIVE: The patient is evaluated by Cardiothoracic Surgery. He has aortic valve vegetation and he needs surgery. His blood cultures are negative. He is afebrile. He is less short of breath. PHYSICAL EXAMINATION: VITAL SIGNS: Blood pressure 126/70, pulse 71, respiratory rate 20, temperature 99. LUNGS: Bilateral crepitations. CARDIOVASCULAR: S1 and S2, +2/6 ejection systolic murmur. ABDOMEN: Soft and nontender. Bowel sounds are positive. ASSESSMENT: 1. Obstructive uropathy with hydronephrosis, staghorn calculus in the right kidney. 2. End-stage renal disease due to renal calculi, on hemodialysis. 3. Anxiety and depression. 4. Aortic valve vegetation. PLAN: I need to discuss the patient with Cardiothoracic Surgery. The patient might need a nephrectomy and removal of stent before a cardiac surgery. We will discuss the case with Cardiothoracic Surgery and Nephrology in the morning. Mikel Marc MD
--- NOTE | 2018-02-22 10:17 | CP.PCM.PN ---
Subjective - Date & Time of Evaluation Date of Evaluation: 02/22/18 Time of Evaluation: 10:15 - Subjective Subjective: s/p dialysis 02/21- tolerated well new aortic valve vegetation noted on echo pt will likely need AVR cannot do procedure without nephrectomy on solitary kidney- it is source of chronic infections will need senior living IV ABs as well- likely will need PICC- can discuss with ID Objective - Vital Signs/Intake and Output Vital Signs (last 24 hours): Temp Pulse Resp BP Pulse Ox 98.2 F 69 20 125/59 L 96 02/22/18 04:24 02/21/18 23:35 02/21/18 23:35 02/21/18 23:35 02/21/18 23:35 - Medications Medications: Current Medications Acetaminophen (Tylenol 325mg Tab) 650 mg PO Q6 PRN PRN Reason: Fever >100.4 F Alprazolam (Xanax) 0.5 mg PO BID PRN PRN Reason: Anxiety Last Admin: 02/22/18 09:48 Dose: 0.5 mg Aspirin (Aspirin Chewable) 81 mg PO DAILY [facility] Last Admin: 02/22/18 09:46 Dose: 81 mg Carvedilol (Coreg) 3.125 mg PO DAILY [facility] Last Admin: 02/22/18 09:56 Dose: 3.125 mg Epoetin Zain (Procrit) 10,000 unit IV MWF [facility] Last Admin: 02/21/18 11:34 Dose: 10,000 unit Ferrous Sulfate (Feosol) 325 mg PO BID [facility] Last Admin: 02/22/18 09:52 Dose: 325 mg Gentamicin Sulfate 80 mg/ (Sodium Chloride) 102 mls @ 100 mls/hr IVPB MWF [facility] PRN Reason: Protocol Last Admin: 02/21/18 13:52 Dose: 100 mls/hr Vancomycin/Sodium Chloride (Vancomycin 1 Gm/Ns 200 Ml) 1 gm in 200 mls @ 133.333 mls/hr IVPB MWF [facility] PRN Reason: Protocol Stop: 02/24/18 16:01 Last Admin: 02/21/18 11:35 Dose: 133.333 mls/hr Penicillin G Potassium 4 mu/ (Dextrose) 50 mls @ 100 mls/hr IV Q6 [facility] PRN Reason: Protocol Last Admin: 02/22/18 05:57 Dose: 100 mls/hr Lactulose (Enulose) 20 gm PO HS [facility] Last Admin: 02/21/18 21:42 Dose: Not Given Oxycodone HCl (Oxycontin Extended Release Tab) 20 mg PO Q12 [facility] Last Admin: 02/22/18 09:47 Dose: 20 mg Oxycodone/Acetaminophen (Percocet 5/325 Mg Tab) 2 tab PO Q4H PRN PRN Reason: Pain, moderate (4-7) Stop: 02/23/18 20:13 Last Admin: 02/21/18 21:34 Dose: 2 tab Pantoprazole Sodium (Protonix Ec Tab) 40 mg PO DAILY [facility] Last Admin: 02/22/18 09:46 Dose: 40 mg Sevelamer Carbonate (Renvela) 1,600 mg PO TID [facility] Last Admin: 02/22/18 09:46 Dose: 1,600 mg Tamsulosin HCl (Flomax) 0.4 mg PO DAILY [facility] Last Admin: 02/22/18 09:46 Dose: 0.4 mg - Labs Labs: 02/15/18 15:52 02/15/18 15:52 PT 14.8 SECONDS (9.7-12.2) H 02/09/18 15:05 INR 1.4 02/09/18 15:05 APTT 36 SECONDS (21-34) H 02/09/18 15:05 - Constitutional Appears: No Acute Distress, Chronically Ill - Head Exam Head Exam: ATRAUMATIC, NORMAL INSPECTION - Eye Exam Eye Exam: EOMI - Neck Exam Neck Exam: Normal Inspection. absent: Tenderness - Respiratory Exam Respiratory Exam: Clear to Ausculation Bilateral, NORMAL BREATHING PATTERN - Cardiovascular Exam Cardiovascular Exam: REGULAR RHYTHM, +S1 - GI/Abdominal Exam GI & Abdominal Exam: Soft. absent: Tenderness - Extremities Exam Extremities Exam: Normal Inspection. absent: Tenderness - Neurological Exam Neurological Exam: Alert, CN II-XII Intact - Skin Skin Exam: Dry, Warm Assessment and Plan (1) Chronic pyelonephritis Status: Acute (2) ESRD (end stage renal disease) Status: Acute (3) Xanthogranulomatous pyelonephritis Status: Acute (4) SBE (subacute bacterial endocarditis) Status: Acute - Assessment and Plan (Free Text) Plan: IV ABs dialysis MWF recommend nephrectomy as soon as possible eventual AV surgery
[2018-02-22] MEDS: Oxycodone/Acetaminophen 5/325 mg Tab PO PRN ×2 (11:18→19:10)
--- NOTE | 2018-02-22 14:44 | CP.PCM.PN ---
Subjective - Date & Time of Evaluation Date of Evaluation: 02/22/18 Time of Evaluation: 14:00 - Subjective Subjective: dictated Objective - Vital Signs/Intake and Output Vital Signs (last 24 hours): Temp Pulse Resp BP Pulse Ox 98.2 F 72 20 125/59 L 96 02/22/18 04:24 02/22/18 08:00 02/21/18 23:35 02/21/18 23:35 02/21/18 23:35 - Medications Medications: Current Medications Acetaminophen (Tylenol 325mg Tab) 650 mg PO Q6 PRN PRN Reason: Fever >100.4 F Alprazolam (Xanax) 0.5 mg PO BID PRN PRN Reason: Anxiety Last Admin: 02/22/18 09:48 Dose: 0.5 mg Aspirin (Aspirin Chewable) 81 mg PO DAILY [facility] Last Admin: 02/22/18 09:46 Dose: 81 mg Carvedilol (Coreg) 3.125 mg PO DAILY [facility] Last Admin: 02/22/18 09:56 Dose: 3.125 mg Epoetin Zain (Procrit) 10,000 unit IV MWF [facility] Last Admin: 02/21/18 11:34 Dose: 10,000 unit Ferrous Sulfate (Feosol) 325 mg PO BID [facility] Last Admin: 02/22/18 09:52 Dose: 325 mg Gentamicin Sulfate 80 mg/ (Sodium Chloride) 102 mls @ 100 mls/hr IVPB MWF [facility] PRN Reason: Protocol Last Admin: 02/21/18 13:52 Dose: 100 mls/hr Vancomycin/Sodium Chloride (Vancomycin 1 Gm/Ns 200 Ml) 1 gm in 200 mls @ 133.333 mls/hr IVPB F [facility] PRN Reason: Protocol Stop: 02/24/18 16:01 Last Admin: 02/21/18 11:35 Dose: 133.333 mls/hr Penicillin G Potassium 4 mu/ (Dextrose) 50 mls @ 100 mls/hr IV Q6 [facility] PRN Reason: Protocol Last Admin: 02/22/18 11:19 Dose: 100 mls/hr Lactulose (Enulose) 20 gm PO HS [facility] Last Admin: 02/21/18 21:42 Dose: Not Given Oxycodone HCl (Oxycontin Extended Release Tab) 20 mg PO Q12 [facility] Last Admin: 09/13/18 09:47 Dose: 20 mg Oxycodone/Acetaminophen (Percocet 5/325 Mg Tab) 2 tab PO Q4H PRN PRN Reason: Pain, moderate (4-7) Stop: 02/23/18 20:13 Last Admin: 02/22/18 11:18 Dose: 2 tab Pantoprazole Sodium (Protonix Ec Tab) 40 mg PO DAILY [facility] Last Admin: 02/22/18 09:46 Dose: 40 mg Sevelamer Carbonate (Renvela) 1,600 mg PO TID [facility] Last Admin: 02/22/18 13:28 Dose: Not Given Tamsulosin HCl (Flomax) 0.4 mg PO DAILY [facility] Last Admin: 02/22/18 09:46 Dose: 0.4 mg - Labs Labs: 02/15/18 15:52 02/15/18 15:52 PT 14.8 SECONDS (9.7-12.2) H 02/09/18 15:05 INR 1.4 02/09/18 15:05 APTT 36 SECONDS (21-34) H 02/09/18 15:05
--- NOTE | 2018-02-22 22:32 | CP.PCM.PN ---
Objective - Vital Signs/Intake and Output Vital Signs (last 24 hours): Temp Pulse Resp BP Pulse Ox 98.2 F 76 20 122/45 L 99 02/22/18 15:00 02/22/18 15:00 02/22/18 15:00 02/22/18 15:00 02/22/18 15:00 - Medications Medications: Current Medications Acetaminophen (Tylenol 325mg Tab) 650 mg PO Q6 PRN PRN Reason: Fever >100.4 F Alprazolam (Xanax) 0.5 mg PO BID PRN PRN Reason: Anxiety Last Admin: 02/22/18 09:48 Dose: 0.5 mg Aspirin (Aspirin Chewable) 81 mg PO DAILY [facility] Last Admin: 02/22/18 09:46 Dose: 81 mg Carvedilol (Coreg) 3.125 mg PO DAILY [facility] Last Admin: 02/22/18 09:56 Dose: 3.125 mg Epoetin Zain (Procrit) 10,000 unit IV [facility] Last Admin: 02/21/18 11:34 Dose: 10,000 unit Ferrous Sulfate (Feosol) 325 mg PO BID [facility] Last Admin: 02/22/18 17:43 Dose: 325 mg Heparin Sodium (Porcine) (Heparin) 5,000 units SC Q12 [facility] Last Admin: 02/22/18 22:03 Dose: Not Given Gentamicin Sulfate 80 mg/ (Sodium Chloride) 102 mls @ 100 mls/hr IVPB [facility] PRN Reason: Protocol Last Admin: 02/21/18 13:52 Dose: 100 mls/hr Vancomycin/Sodium Chloride (Vancomycin 1 Gm/Ns 200 Ml) 1 gm in 200 mls @ 133.333 mls/hr IVPB [facility] PRN Reason: Protocol Stop: 02/24/18 16:01 Last Admin: 02/21/18 11:35 Dose: 133.333 mls/hr Penicillin G Potassium 4 mu/ (Dextrose) 50 mls @ 100 mls/hr IV Q6 [facility] PRN Reason: Protocol Last Admin: 02/22/18 19:08 Dose: 100 mls/hr Lactulose (Enulose) 20 gm PO HS [facility] Last Admin: 02/22/18 22:03 Dose: Not Given Oxycodone HCl (Oxycontin Extended Release Tab) 20 mg PO Q12 [facility] Last Admin: 02/22/18 22:09 Dose: 20 mg Oxycodone/Acetaminophen (Percocet 5/325 Mg Tab) 2 tab PO Q4H PRN PRN Reason: Pain, moderate (4-7) Stop: 02/23/18 20:13 Last Admin: 02/22/18 19:10 Dose: 2 tab Pantoprazole Sodium (Protonix Ec Tab) 40 mg PO DAILY [facility] Last Admin: 02/22/18 09:46 Dose: 40 mg Sevelamer Carbonate (Renvela) 1,600 mg PO TID [facility] Last Admin: 02/22/18 17:44 Dose: 1,600 mg Tamsulosin HCl (Flomax) 0.4 mg PO DAILY [facility] Last Admin: 02/22/18 09:46 Dose: 0.4 mg - Labs Labs: 02/15/18 15:52 02/15/18 15:52 PT 14.8 SECONDS (9.7-12.2) H 02/09/18 15:05 INR 1.4 02/09/18 15:05 APTT 36 SECONDS (21-34) H 02/09/18 15:05 Assessment and Plan (1) Renal infection Status: Acute (2) CKD (chronic kidney disease) Status: Chronic (3) Hepatitis C Status: Chronic (4) Nephrolithiasis Status: Chronic
--- NOTE | 2018-02-22 23:10 | PN ---
DATE: 02/22/2018 SUBJECTIVE: The patient was seen today and he said that he spoke to Dr. Liang also after we had spoken and he is agreeable for nephrectomy as his kidney is the source of infection. He denies doing any IV drug abuse since 2013. He has a new aortic valve vegetation and I do not think it will be right to place a new valve in view of infected kidney being there and Dr. Liang's note is appreciated. I know he needs a PICC line, which I will order for now. PHYSICAL EXAMINATION: VITAL SIGNS: Stable. T-max is 98.2, pulse 69, blood pressure is 120/59, respirations are 20. ASSESSMENT AND PLAN: He is becoming uneasy now that he wants it done and he wants it done faster than before to remove the kidney. He had a new valve and he remains on antibiotics. He is on vancomycin and penicillin G and we will continue both at this time, and he is also on gentamicin. I want to get rid of the gentamicin as 02/14/2018 cultures are negative. We will order for a peripherally inserted central catheter line. So he does need nephrectomy, and then after that he needs aortic valve surgery and he will need antibiotics for the longest, so we will continue with these. He also has history of chronic hepatitis C. He has chronic kidney infection with the stent, but he is on dialysis. He has an aortic valve vegetation and the lungs, it looks like septic emboli. Antonella Sexton MD
[2018-02-23] MEDS: Oxycodone/Acetaminophen 5/325 mg Tab PO PRN ×4 (00:06→17:46)
--- NOTE | 2018-02-23 01:15 | PN ---
DATE: 02/22/2018 UROLOGY PROGRESS NOTE SUBJECTIVE: See many previously dictated notes post initial hospital admission and further. Urology as we consult regarding the possibly for nephrectomy. Chart note notes from Dr. Miner and Dr. Liang are noted. The patient has endocarditis now and is currently under the treatment with antibiotics. Urology is requested for the possibility for nephrectomy. I just today reviewed the patient's care, see below listed plan. There are no major other interim changes from urology standpoint. PAST MEDICAL AND SURGICAL HISTORY: All listed. During this hospitalization, we are seeing the patient on a regular basis. He is being receiving his dialysis. His surgical exam remains unchanged. PHYSICAL EXAMINATION: GENERAL: He is currently resting comfortably in his bed. VITAL SIGNS: Within normal limits. UROLOGY DIAGNOSES: Urolithiasis with tremendously heavy stone burden, recurrent infection, renal failure, dialysis dependent, end-stage renal disease and now with active endocarditis. ASSESSMENT AND PLAN: In summary, a very pleasant gentleman. We have discussed on multiple occasions both with the patient and also various consulting services. See many previously dictated notes about the management of the patient. The correct management for the stone just try analysis for the stone with these for percutaneous nephrostolithotomy. The patient has received that initially. After much discussion, we had then performed ureteroscopy and laser lithotripsy. With some initial indentation in the stone, but otherwise . We then discussed the further options with the patient including the possibly for percutaneous nephrostolithotomy. We have the interventional radiology tried to perform percutaneous nephrostomy tube insertion, but they were unsuccessful given the large stone burden and for various other reasons including anesthesia. Those notes were well documented. Regarding the patient as previously, we discussed the idea of nephrectomy for which he has refused previously. They did much discussion and benefits to the patient keeping his kidneys in place. Although he is dialysis dependent, he is less fluid restricted. The removal of kidney unless he is subsequently going to receive a transplant, which I guess we made the possibility, but until that point, we will have him much greater fluid restriction. Every time, I have discussed this idea with him and we probably would not be able to have more than certain amount of fluid per day, this is disturbing. The other sort of benefit is endocrine functions of the kidney. Even then the patient is not producing urine well, may have some benefits. We discussed this and analyzed with the patient. At this point, now with the active endocarditis and the infection. I had a chance to speak with Dr. Miner, who will recommend that he has valvular change. If that is really the case, we would not want the source for infection. We will conquer with the idea of recommendation for nephrectomy. As mentioned, we have previously discussed and entertained it, so sat down with the patient today and I had a long discussion about that possibility. I also discussed with him previously had a nephrectomy with Dr. Fenton with a robot and that surgery went well, and the patient was satisfied there. I did discuss with him the possibility of an open operation, but I would not recommend that. At this point, I am going to recommend that we obtain a consultation from Dr. Fenton. As a urology, first we will offer second opinion for urology which is good merit. He is agreeable for the nephrectomy. Then, the patient can have a robotic nephrectomy with Dr. Fenton. From the urology standpoint, the plans are as follows, 1. Continue current antibiotics. 2. Would ask Dr. Liang and Dr. Miner to continue their care. 3. We will request a second opinion consultation from Dr. Fenton for the possibility for nephrectomy. Celso Ferro MD
[2018-02-23] MEDS: DEXTROSE IV SCH ×4 (05:30→23:45)
[2018-02-23] MEDS: PENICILLIN POTASSIUM MU IV SCH ×4 (05:30→23:45)
[2018-02-23] MEDS: WATER IV SCH ×4 (05:30→23:45)
--- NOTE | 2018-02-23 07:14 | PN ---
DATE: 02/22/2018 SUBJECTIVE: The patient denied any chest pain or shortness of breath. No reported arrhythmia. PHYSICAL EXAMINATION: VITAL SIGNS: Blood pressure 125/59, heart rate 69, temperature 98.4, and respirations 20. HEENT: [place] conjunctivae. CHEST: Clear. HEART: S1 and S2, regular. EXTREMITIES: No edema. ASSESSMENT: 1. Bacterial endocarditis, aortic valve, with significant aortic stenosis. 2. [place] right renal calculus with hydronephrosis and hydroureter. 3. Anemia. 4. End-stage renal disease, on hemodialysis. RECOMMENDATIONS: I discussed the case with urologist, Dr. Ferro, and right nephrectomy will be performed prior to aortic valve replacement including any ureteric stents. In the meantime, the patient will be maintained on intravenous antibiotics including intravenous gentamicin and intravenous penicillin G as well as intravenous vancomycin as per the choice of the infectious disease specialist, Dr. Sexton. Mc Miner MD
[2018-02-23] MEDS: Vancomycin 1 gm/NS 200 ml 1 GM/200 ML BAG IVPB SCH (08:30)
[2018-02-23 09:52] LABS: HEMOGLOBIN 9.6 g/dL (12.0-18.0); MEAN CELL VOLUME 94.7 fL (80.0-94.0); MEAN CORPUSCULAR HEMOGLOBIN 31.9 pg (27.0-31.0); MEAN CORPUSCULAR HGB CONC 33.7 g/dL (33.0-37.0); MEAN PLATELET VOLUME 8.2 fL (7.2-11.7); RBC 3.01 Mil/uL (4.40-5.90); RED CELL DISTRIBUTION WIDTH 16.2 % (11.5-14.5)
[2018-02-23] MEDS: oxyCODONE 20 mg ER Tab (oxyCONTIN) PO SCH ×2 (10:00→21:32)
[2018-02-23 10:09] LABS: ALBUMIN 3.8 g/dL (3.5-5.0); CALCIUM 9.4 mg/dl (8.6-10.4)
[2018-02-23] MEDS: Epoetin Alfa 10,000 unit/ml Dialysis IV SCH (12:23)
[2018-02-23] MEDS: Pantoprazole 40 mg EC Tab PO SCH (13:24)
--- NOTE | 2018-02-23 14:42 | CP.PCM.PN ---
Subjective - Date & Time of Evaluation Date of Evaluation: 02/23/18 Time of Evaluation: 14:40 - Subjective Subjective: Stable dialysis 02/22 Dry weight decreased with adequate UF On IV ABs for SBE Agrees now for nephrectomy Objective - Vital Signs/Intake and Output Vital Signs (last 24 hours): Temp Pulse Resp BP Pulse Ox 98.1 F 78 16 125/55 L 98 02/23/18 12:25 02/23/18 12:25 02/23/18 09:25 02/23/18 12:25 02/23/18 12:25 - Medications Medications: Current Medications Acetaminophen (Tylenol 325mg Tab) 650 mg PO Q6 PRN PRN Reason: Fever >100.4 F Alprazolam (Xanax) 0.5 mg PO BID PRN PRN Reason: Anxiety Last Admin: 02/23/18 13:43 Dose: 0.5 mg Aspirin (Aspirin Chewable) 81 mg PO DAILY [facility] Last Admin: 02/23/18 13:25 Dose: 81 mg Carvedilol (Coreg) 3.125 mg PO DAILY [facility] Last Admin: 02/23/18 13:25 Dose: 3.125 mg Epoetin Zain (Procrit) 10,000 unit IV MWF [facility] Last Admin: 02/23/18 12:23 Dose: 10,000 unit Ferrous Sulfate (Feosol) 325 mg PO BID [facility] Last Admin: 02/23/18 13:25 Dose: 325 mg Heparin Sodium (Porcine) (Heparin) 5,000 units SC Q12 [facility] Last Admin: 02/23/18 10:00 Dose: Not Given Gentamicin Sulfate 80 mg/ (Sodium Chloride) 102 mls @ 100 mls/hr IVPB [facility] [place] PRN Reason: Protocol Last Admin: 02/23/18 08:30 Dose: 100 mls/hr Vancomycin/Sodium Chloride (Vancomycin 1 Gm/Ns 200 Ml) 1 gm in 200 mls @ 133.333 mls/hr IVPB MWF [facility] PRN Reason: Protocol Stop: 02/24/18 16:01 Last Admin: 02/23/18 08:30 Dose: 133.333 mls/hr Penicillin G Potassium 4 mu/ (Dextrose) 50 mls @ 100 mls/hr IV Q6 [facility] PRN Reason: Protocol Last Admin: 02/23/18 12:00 Dose: 100 mls/hr Lactulose (Enulose) 20 gm PO [facility] Last Admin: 02/22/18 22:03 Dose: Not Given Oxycodone HCl (Oxycontin Extended Release Tab) 20 mg PO Q12 [facility] Last Admin: 02/23/18 10:00 Dose: Not Given Oxycodone/Acetaminophen (Percocet 5/325 Mg Tab) 2 tab PO Q4H PRN PRN Reason: Pain, moderate (4-7) Stop: 02/23/18 20:13 Last Admin: 02/23/18 13:37 Dose: 2 tab Pantoprazole Sodium (Protonix Ec Tab) 40 mg PO DAILY [facility] Last Admin: 02/23/18 13:24 Dose: 40 mg Sevelamer Carbonate (Renvela) 1,600 mg PO TID [facility] Last Admin: 02/23/18 13:52 Dose: 1,600 mg Tamsulosin HCl (Flomax) 0.4 mg PO DAILY [facility] Last Admin: 02/23/18 13:25 Dose: 0.4 mg - Labs Labs: 02/23/18 09:39 02/23/18 09:39 PT 14.8 SECONDS (9.7-12.2) H 02/09/18 15:05 INR 1.4 02/09/18 15:05 APTT 36 SECONDS (21-34) H 02/09/18 15:05 - Constitutional Appears: No Acute Distress, Chronically Ill - Head Exam Head Exam: ATRAUMATIC, NORMAL INSPECTION - Eye Exam Eye Exam: EOMI, Normal appearance - Neck Exam Neck Exam: Normal Inspection. absent: Tenderness - Respiratory Exam Respiratory Exam: Clear to Ausculation Bilateral, NORMAL BREATHING PATTERN - Cardiovascular Exam Cardiovascular Exam: REGULAR RHYTHM, +S1 - GI/Abdominal Exam GI & Abdominal Exam: Soft. absent: Tenderness - Extremities Exam Extremities Exam: Normal Inspection. absent: Tenderness - Neurological Exam Neurological Exam: Alert, CN II-XII Intact - Skin Skin Exam: Dry, Warm Assessment and Plan (1) Chronic pyelonephritis Status: Acute (2) ESRD (end stage renal disease) Status: Acute (3) Xanthogranulomatous pyelonephritis Status: Acute (4) SBE (subacute bacterial endocarditis) Status: Acute - Assessment and Plan (Free Text) Plan: IV ABs Dialysis MWF with adequate UF Needs nephrectomy
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
--- NOTE | 2018-02-23 18:24 | PN ---
DATE: 02/23/2018 SUBJECTIVE: The patient is afebrile, still has the issue . No nausea or vomiting. PHYSICAL EXAMINATION: VITAL SIGNS: BP 122/45, pulse 76, respiratory rate 20, and temperature 98.2. LUNGS: Clear. CARDIOVASCULAR SYSTEM: S1 and S2 plus systolic murmur. ABDOMEN: Soft. ASSESSMENT: 1. Endocarditis. The patient has valve vegetation. Blood cultures are negative. No fever. 2. Nephrolithiasis with hydronephrosis. 3. Chronic kidney disease. PLAN: Continue antibiotics. I will discuss with Cardiothoracic Surgery for . Mikel Marc MD
--- NOTE | 2018-02-23 18:56 | CP.PCM.PN ---
Subjective - Date & Time of Evaluation Date of Evaluation: 02/23/18 Time of Evaluation: 13:00 - Subjective Subjective: dictated Objective - Vital Signs/Intake and Output Vital Signs (last 24 hours): Temp Pulse Resp BP Pulse Ox 98.7 F 74 20 116/62 99 02/23/18 15:00 02/23/18 15:00 02/23/18 15:00 02/23/18 15:00 02/23/18 15:00 - Medications Medications: Current Medications Acetaminophen (Tylenol 325mg Tab) 650 mg PO Q6 PRN PRN Reason: Fever >100.4 F Alprazolam (Xanax) 0.5 mg PO BID PRN PRN Reason: Anxiety Last Admin: 02/23/18 13:43 Dose: 0.5 mg Aspirin (Aspirin Chewable) 81 mg PO DAILY [facility] Last Admin: 02/23/18 13:25 Dose: 81 mg Carvedilol (Coreg) 3.125 mg PO DAILY [facility] Last Admin: 02/23/18 13:25 Dose: 3.125 mg Epoetin Zain (Procrit) 10,000 unit IV MWF [facility] Last Admin: 02/23/18 12:23 Dose: 10,000 unit Ferrous Sulfate (Feosol) 325 mg PO BID [facility] Last Admin: 02/23/18 17:45 Dose: 325 mg Heparin Sodium (Porcine) (Heparin) 5,000 units SC Q12 [facility] Last Admin: 02/23/18 10:00 Dose: Not Given Gentamicin Sulfate 80 mg/ (Sodium Chloride) 102 mls @ 100 mls/hr [place]PB [facility] Reason: Protocol Last Admin: 02/23/18 08:30 Dose: 100 mls/hr Vancomycin/Sodium Chloride (Vancomycin 1 Gm/Ns 200 Ml) 1 gm in 200 mls @ 133.333 mls/hr IVPB [facility] [place]N Reason: Protocol Stop: 02/24/18 16:01 Last Admin: 02/23/18 08:30 Dose: 133.333 mls/hr Penicillin G Potassium 4 mu/ (Dextrose) 50 mls @ 100 mls/hr IV Q6 [facility] PRN Reason: Protocol Last Admin: 02/23/18 17:45 Dose: 100 mls/hr Lactulose (Enulose) 20 gm PO [facility] Last Admin: 02/22/18 22:03 Dose: Not Given Oxycodone HCl (Oxycontin Extended Release Tab) 20 mg PO Q12 [facility] Last Admin: 02/23/18 10:00 Dose: Not Given Oxycodone/Acetaminophen (Percocet 5/325 Mg Tab) 2 tab PO Q4H PRN PRN Reason: Pain, moderate (4-7) Stop: 02/23/18 20:13 Last Admin: 02/23/18 17:46 Dose: 2 tab Pantoprazole Sodium (Protonix Ec Tab) 40 mg PO DAILY [facility] Last Admin: 02/23/18 13:24 Dose: 40 mg Sevelamer Carbonate (Renvela) 1,600 mg PO TID [facility] Last Admin: 02/23/18 17:45 Dose: 1,600 mg Tamsulosin HCl (Flomax) 0.4 mg PO DAILY [facility] Last Admin: 02/23/18 13:25 Dose: 0.4 mg - Labs Labs: 02/23/18 09:39 02/23/18 09:39 PT 14.8 SECONDS (9.7-12.2) H 02/09/18 15:05 INR 1.4 02/09/18 15:05 APTT 36 SECONDS (21-34) H 02/09/18 15:05
--- NOTE | 2018-02-23 20:45 | PN ---
DATE: 02/23/2018 SUBJECTIVE: The patient denies any chest pain or shortness of breath. PHYSICAL EXAMINATION: VITAL SIGNS: Blood pressure 125/55, heart rate 78, temperature 98.1 and respirations 16. HEENT: Pale conjunctivae. CHEST: Clear. HEART: S1 and S2 regular. EXTREMITIES: No edema. LABORATORY DATA: Today's hemoglobin and hematocrit 9.6 and 28.5. White count and platelet count are within normal limits. Today's SMA-7, sodium 140, potassium 4.6, chloride 98, CO2 23, glucose 138, BUN 45 and creatinine 10.6. ASSESSMENT: 1. Bacterial endocarditis with severe aortic insufficiency. 2. End-stage renal disease on hemodialysis. 3. Right nephrolithiasis with staghorn calculus with hydroureter and hydronephrosis. RECOMMENDATIONS: I did discuss the plan with urologist, Dr. Ferro, who agreed with nephrectomy and retrieval of the ureteric stent prior to aortic valve replacement. The case was also discussed today with Dr. Sexton Infectious Disease specialist, who agreed with it and was discussed with Dr. Mikel Marc the primary physician and Dr. Trujillo cardiothoracic surgeon. The plan is to transfer the patient to [facility] for both surgeries. The patient will be transferred under the service of Dr. Mikel Marc, Urology, Cardiology and Cardiothoracic surgical consultation will be obtained besides ID followup and continuation of current intravenous antibiotics, which include IV gentamicin, penicillin G and IV vancomycin. Mc Miner MD
--- NOTE | 2018-02-23 23:51 | PN ---
DATE: 02/23/2018 SUBJECTIVE: The patient was seen this morning. He has agreed to get kidney removed as it is full of pus and has been causing him problems, and now, he has aortic valve vegetation. He will need a new valve but the urologist is going to be away, and there is a concern, and he is probably going to have the well surgery done in [facility], so we were all deciding that he may get his kidney surgery done there also, and it will be a major surgery, and Dr. Miner at the same time came by, and he said he was going to discuss with Dr. Marc, if that could work with the plan, and he could be transferred. Meanwhile, I am going to continue with vancomycin and penicillin. His cultures are negative now repeatedly for next 5 days from 02/14. I would discontinue the gentamicin. Continue vancomycin or we can leave it until we get the valve done. He is on vancomycin also as well as penicillin, and just being cautious. He wanted his kidney to be out, and now wants to get better fast. PHYSICAL EXAMINATION: VITAL SIGNS: T-max is 98.7, pulse 74, blood pressure 116/62, respirations are 18. HEENT: Head is atraumatic, normocephalic. NECK: Supple. LUNGS: Clear. HEART: S1, S2 regular. ABDOMEN: Soft, nontender. No guarding, no rigidity present. EXTREMITIES: Have no edema. Left arm has the AV fistula. White count is 7 today, hemoglobin 9.6. Blood cultures have been negative. His creatinine is 10.8, BUN is 45. He is a dialysis patient, so he has subacute bacterial endocarditis, probably from Peptostreptococcus which is an anaerobe. He has stent, and he has kidney infection and kidney stones. He only has one kidney, and he is on dialysis, and he is addicted to pain meds. He himself says that but he has not done any IV drug abuse since 2013. Antonella Sexton MD
--- NOTE | 2018-02-24 00:20 | CP.PCM.PN ---
Subjective - Date & Time of Evaluation Date of Evaluation: 02/23/18 - Subjective Subjective: AFEBRILE, NO SOB Objective - Vital Signs/Intake and Output Vital Signs (last 24 hours): Temp Pulse Resp BP Pulse Ox 98.7 F 75 20 116/62 99 02/23/18 15:00 02/23/18 20:00 02/23/18 15:00 02/23/18 15:00 02/23/18 15:00 Intake and Output: 02/23/18 02/24/18 18:59 06:59 Intake Total 350 Balance 350 - Medications Medications: Current Medications Acetaminophen (Tylenol 325mg Tab) 650 mg PO Q6 PRN PRN Reason: Fever >100.4 F Alprazolam (Xanax) 0.5 mg PO BID PRN PRN Reason: Anxiety Last Admin: 02/23/18 13:43 Dose: 0.5 mg Aspirin (Aspirin Chewable) 81 mg PO DAILY [facility] Last Admin: 02/23/18 13:25 Dose: 81 mg Carvedilol (Coreg) 3.125 mg PO DAILY [facility] Last Admin: 02/23/18 13:25 Dose: 3.125 mg Epoetin Zain (Procrit) 10,000 unit IV MWF [facility] Last Admin: 02/23/18 12:23 Dose: 10,000 unit Ferrous Sulfate (Feosol) 325 mg PO BID [facility] Last Admin: 02/23/18 17:45 Dose: 325 mg Heparin Sodium (Porcine) (Heparin) 5,000 units SC Q12 [facility] Last Admin: 02/23/18 21:28 Dose: Not Given Gentamicin Sulfate 80 mg/ (Sodium Chloride) 102 mls @ 100 mls/hr IVPB [facility] [place] PRN Reason: Protocol Last Admin: 02/23/18 08:30 Dose: 100 mls/hr Vancomycin/Sodium Chloride (Vancomycin 1 Gm/Ns 200 Ml) 1 gm in 200 mls @ 133.333 mls/hr IVPB F [facility] PRN Reason: Protocol Stop: 02/24/18 16:01 Last Admin: 02/23/18 08:30 Dose: 133.333 mls/hr Penicillin G Potassium 4 mu/ (Dextrose) 50 mls @ 100 mls/hr IV Q6 [facility] PRN Reason: Protocol Last Admin: 02/23/18 23:45 Dose: 100 mls/hr Lactulose (Enulose) 20 gm PO HS [facility] Last Admin: 02/23/18 21:28 Dose: Not Given Oxycodone HCl (Oxycontin Extended Release Tab) 20 mg PO Q12 [facility] Last Admin: 02/23/18 21:32 Dose: 20 mg Pantoprazole Sodium (Protonix Ec Tab) 40 mg PO DAILY [facility] Last Admin: 02/23/18 13:24 Dose: 40 mg Sevelamer Carbonate (Renvela) 1,600 mg PO TID [facility] Last Admin: 02/23/18 17:45 Dose: 1,600 mg Tamsulosin HCl (Flomax) 0.4 mg PO DAILY [facility] Last Admin: 02/23/18 13:25 Dose: 0.4 mg - Labs Labs: 02/23/18 09:39 02/23/18 09:39 PT 14.8 SECONDS (9.7-12.2) H 02/09/18 15:05 INR 1.4 02/09/18 15:05 APTT 36 SECONDS (21-34) H 02/09/18 15:05 - Constitutional Appears: Non-toxic, No Acute Distress, Chronically Ill - Head Exam Head Exam: ATRAUMATIC, NORMAL INSPECTION, NORMOCEPHALIC - Eye Exam Eye Exam: EOMI, Normal appearance, PERRL Pupil Exam: NORMAL ACCOMODATION - ENT Exam ENT Exam: Mucous Membranes Moist, Normal Exam, Normal Oropharynx, TM's Normal Bilaterally - Neck Exam Neck Exam: Normal Inspection - Respiratory Exam Respiratory Exam: Clear to Ausculation Bilateral, NORMAL BREATHING PATTERN - Cardiovascular Exam Cardiovascular Exam: REGULAR RHYTHM, +S1, +S2 - GI/Abdominal Exam GI & Abdominal Exam: Normal Bowel Sounds - Rectal Exam Rectal Exam: NORMAL INSPECTION - Extremities Exam Extremities Exam: Normal Capillary Refill - Neurological Exam Neurological Exam: Alert, Awake, CN II-XII Intact, Normal Gait, Oriented x3 - Psychiatric Exam Psychiatric exam: Anxious, Flat Affect - Skin Skin Exam: Intact Assessment and Plan (1) Renal infection Status: Acute (2) CKD (chronic kidney disease) Status: Chronic (3) Hepatitis C Status: Chronic (4) Nephrolithiasis Status: Chronic (5) SBE (subacute bacterial endocarditis) Status: Acute
[2018-02-24] MEDS ORDERED: Oxycodone/Acetaminophen 5/325 mg Tab PO STA (01:02)
[2018-02-24] MEDS: WATER IV SCH ×5 (06:00→17:52)
[2018-02-24] MEDS: DEXTROSE IV SCH ×5 (06:00→17:52)
[2018-02-24] MEDS: PENICILLIN POTASSIUM MU IV SCH ×5 (06:00→17:52)
[2018-02-24] MEDS: Oxycodone/Acetaminophen 5/325 mg Tab PO PRN ×3 (09:26→17:17)
[2018-02-24] MEDS: Pantoprazole 40 mg EC Tab PO SCH (11:27)
[2018-02-24] MEDS: oxyCODONE 20 mg ER Tab (oxyCONTIN) PO SCH ×2 (11:27→22:17)
--- NOTE | 2018-02-24 11:30 | CP.PCM.PN ---
Subjective - Date & Time of Evaluation Date of Evaluation: 02/24/18 Time of Evaluation: 11:28 - Subjective Subjective: tolerated HD no chest pain or sob no fever on AB no diarrhea no rash no sinus complaint appetite good no headache chronic anxiety Objective - Vital Signs/Intake and Output Vital Signs (last 24 hours): Temp Pulse Resp BP Pulse Ox 98.0 F 66 18 114/55 L 100 02/24/18 07:45 02/24/18 07:45 02/24/18 07:45 02/24/18 07:45 02/24/18 07:45 Intake and Output: 02/24/18 02/24/18 06:59 18:59 Intake Total 350 Balance 350 - Medications Medications: Current Medications Acetaminophen (Tylenol 325mg Tab) 650 mg PO Q6 PRN PRN Reason: Fever >100.4 F Alprazolam (Xanax) 0.5 mg PO BID PRN PRN Reason: Anxiety Last Admin: 02/23/18 13:43 Dose: 0.5 mg Aspirin (Aspirin Chewable) 81 mg PO DAILY [facility] Last Admin: 02/23/18 13:25 Dose: 81 mg Carvedilol (Coreg) 3.125 mg PO DAILY [facility] Last Admin: 02/23/18 13:25 Dose: 3.125 mg Epoetin Zain (Procrit) 10,000 unit IV MWF [facility] Last Admin: 02/23/18 12:23 Dose: 10,000 unit Ferrous Sulfate (Feosol) 325 mg PO BID [facility] Last Admin: 02/23/18 17:45 Dose: 325 mg Heparin Sodium (Porcine) (Heparin) 5,000 units SC Q12 [facility] Last Admin: 02/23/18 21:28 Dose: Not Given Gentamicin Sulfate 80 mg/ (Sodium Chloride) 102 mls @ 100 mls/hr IVPB MWF [facility] PRN Reason: Protocol Last Admin: 02/23/18 08:30 Dose: 100 mls/hr Vancomycin/Sodium Chloride (Vancomycin 1 Gm/Ns 200 Ml) 1 gm in 200 mls @ 133.333 mls/hr IVPB MWF [facility] PRN Reason: Protocol Stop: 02/24/18 16:01 Last Admin: 02/23/18 08:30 Dose: 133.333 mls/hr Penicillin G Potassium 4 mu/ (Dextrose) 50 mls @ 100 mls/hr IV Q6 [facility] PRN Reason: Protocol Last Admin: 02/24/18 06:00 Dose: 100 mls/hr Lactulose (Enulose) 20 gm PO HS [facility] Last Admin: 02/23/18 21:28 Dose: Not Given Oxycodone HCl (Oxycontin Extended Release Tab) 20 mg PO Q12 [facility] Last Admin: 02/23/18 21:32 Dose: 20 mg Oxycodone/Acetaminophen (Percocet 5/325 Mg Tab) 2 tab PO Q4H PRN PRN Reason: Pain, moderate (4-7) Stop: 02/27/18 09:21 Last Admin: 02/24/18 09:26 Dose: 2 tab Pantoprazole Sodium (Protonix Ec Tab) 40 mg PO DAILY [facility] Last Admin: 02/23/18 13:24 Dose: 40 mg Sevelamer Carbonate (Renvela) 1,600 mg PO TID [facility] Last Admin: 02/23/18 17:45 Dose: 1,600 mg Tamsulosin HCl (Flomax) 0.4 mg PO DAILY [facility] Last Admin: 02/23/18 13:25 Dose: 0.4 mg - Labs Labs: 02/23/18 09:39 02/23/18 09:39 PT 14.8 SECONDS (9.7-12.2) H 02/09/18 15:05 INR 1.4 02/09/18 15:05 APTT 36 SECONDS (21-34) H 02/09/18 15:05 - Constitutional Appears: Non-toxic, Chronically Ill - Head Exam Head Exam: ATRAUMATIC, NORMAL INSPECTION - Eye Exam Eye Exam: EOMI - ENT Exam ENT Exam: Mucous Membranes Moist - Neck Exam Neck Exam: Full ROM. absent: Lymphadenopathy - Respiratory Exam Respiratory Exam: Decreased Breath Sounds. absent: Rhonchi - Cardiovascular Exam Cardiovascular Exam: REGULAR RHYTHM. absent: Rubs - Neurological Exam Neurological Exam: Alert, Awake Assessment and Plan - Assessment and Plan (Free Text) Assessment: esrd chronic kidney infection sbe/aortic valve HD on Monday cardiac cath planned for nephrectomy and valve replacement
--- NOTE | 2018-02-24 15:54 | CP.PCM.PN ---
Subjective - Date & Time of Evaluation Date of Evaluation: 02/24/18 Time of Evaluation: 15:00 - Subjective Subjective: dictated Objective - Vital Signs/Intake and Output Vital Signs (last 24 hours): Temp Pulse Resp BP Pulse Ox 98.0 F 66 18 114/55 L 100 02/24/18 07:45 02/24/18 07:45 02/24/18 07:45 02/24/18 07:45 02/24/18 07:45 Intake and Output: 02/24/18 02/24/18 06:59 18:59 Intake Total 350 Balance 350 - Medications Medications: Current Medications Acetaminophen (Tylenol 325mg Tab) 650 mg PO Q6 PRN PRN Reason: Fever >100.4 F Alprazolam (Xanax) 0.5 mg PO BID PRN PRN Reason: Anxiety Last Admin: 02/23/18 13:43 Dose: 0.5 mg Aspirin (Aspirin Chewable) 81 mg PO DAILY [facility] Last Admin: 02/24/18 11:28 Dose: 81 mg Carvedilol (Coreg) 3.125 mg PO DAILY [facility] Last Admin: 02/24/18 11:27 Dose: 3.125 mg Epoetin Zain (Procrit) 10,000 unit IV MWF [facility] Last Admin: 02/23/18 12:23 Dose: 10,000 unit Ferrous Sulfate (Feosol) 325 mg PO BID [facility] Last Admin: 02/24/18 11:27 Dose: 325 mg Heparin Sodium (Porcine) (Heparin) 5,000 units SC Q12 [facility] Last Admin: 02/24/18 13:23 Dose: Not Given Gentamicin Sulfate 80 mg/ (Sodium Chloride) 102 mls @ 100 mls/hr IVPB [facility] [place] PRN Reason: Protocol Last Admin: 02/23/18 08:30 Dose: 100 mls/hr Vancomycin/Sodium Chloride (Vancomycin 1 Gm/Ns 200 Ml) 1 gm in 200 mls @ 133.333 mls/hr IVPB MWF [facility] PRN Reason: Protocol Stop: 02/24/18 16:01 Last Admin: 02/23/18 08:30 Dose: 133.333 mls/hr Penicillin G Potassium 4 mu/ (Dextrose) 50 mls @ 100 mls/hr IV Q6 [facility] PRN Reason: Protocol Last Admin: 02/24/18 13:30 Dose: 100 mls/hr Lactulose (Enulose) 20 gm PO HS [facility] Last Admin: 02/23/18 21:28 Dose: Not Given Oxycodone HCl (Oxycontin Extended Release Tab) 20 mg PO Q12 [facility] Last Admin: 02/24/18 11:27 Dose: 20 mg Oxycodone/Acetaminophen (Percocet 5/325 Mg Tab) 2 tab PO Q4H PRN PRN Reason: Pain, moderate (4-7) Stop: 02/27/18 09:21 Last Admin: 02/24/18 13:10 Dose: 2 tab Pantoprazole Sodium (Protonix Ec Tab) 40 mg PO DAILY [facility] Last Admin: 02/24/18 11:27 Dose: 40 mg Sevelamer Carbonate (Renvela) 1,600 mg PO TID [facility] Last Admin: 02/24/18 13:10 Dose: 1,600 mg Tamsulosin HCl (Flomax) 0.4 mg PO DAILY [facility] Last Admin: 02/24/18 11:27 Dose: 0.4 mg - Labs Labs: 02/23/18 09:39 02/23/18 09:39 PT 14.8 SECONDS (9.7-12.2) H 02/09/18 15:05 INR 1.4 02/09/18 15:05 APTT 36 SECONDS (21-34) H 02/09/18 15:05
--- NOTE | 2018-02-24 19:30 | PN ---
DATE: 02/24/2018 SUBJECTIVE: The patient denies chest pain or shortness of breath. The patient was evaluated yesterday by Dr. Schultz and the patient agreed to go to [facility] for nephrectomy followed by aortic valve replacement. The patient refused telemetry monitoring today; however, the monitor is still available for him whenever he agrees for it. PHYSICAL EXAMINATION: VITAL SIGNS: Blood pressure 114/65, heart rate 66, temperature 98, and respirations 18. HEENT: Pale conjunctivae. CHEST: Clear. HEART: S1 and S2 regular. EXTREMITIES: No edema. LABORATORY DATA: The repeat blood cultures are negative after five days. ASSESSMENT: 1. Bacterial endocarditis, aortic valve. 2. Right kidney staghorn calculus with right hydroureter and hydronephrosis. 3. End-stage renal disease, on hemodialysis. 4. Mild anemia. RECOMMENDATIONS: Continue aspirin, Coreg, IV gentamicin, and IV vancomycin plus IV Crestor and penicillin. The plan for the patient is to undergo coronary angiogram on Monday and be transferred on Monday to [facility]. Mc Miner MD
--- NOTE | 2018-02-24 19:59 | CP.PCM.PN ---
Objective - Vital Signs/Intake and Output Vital Signs (last 24 hours): Temp Pulse Resp BP Pulse Ox 98.4 F 76 20 124/55 L 97 02/24/18 15:20 02/24/18 15:20 02/24/18 15:20 02/24/18 15:20 02/24/18 15:20 Intake and Output: 02/24/18 02/25/18 18:59 06:59 Intake Total 300 Balance 300 - Medications Medications: Current Medications Acetaminophen (Tylenol 325mg Tab) 650 mg PO Q6 PRN PRN Reason: Fever >100.4 F Alprazolam (Xanax) 0.5 mg PO BID PRN PRN Reason: Anxiety Last Admin: 02/23/18 13:43 Dose: 0.5 mg Aspirin (Aspirin Chewable) 81 mg PO DAILY [facility] Last Admin: 02/24/18 11:28 Dose: 81 mg Carvedilol (Coreg) 3.125 mg PO DAILY [facility] Last Admin: 02/24/18 11:27 Dose: 3.125 mg Epoetin Zain (Procrit) 10,000 unit IV MWF [facility] Last Admin: 02/23/18 12:23 Dose: 10,000 unit Ferrous Sulfate (Feosol) 325 mg PO BID [facility] Last Admin: 02/24/18 17:52 Dose: 325 mg Heparin Sodium (Porcine) (Heparin) 5,000 units SC Q12 [facility] Last Admin: 02/24/18 13:23 Dose: Not Given Gentamicin Sulfate 80 mg/ (Sodium Chloride) 102 mls @ 100 mls/hr IVPB MWF [facility] PRN Reason: Protocol Last Admin: 02/23/18 08:30 Dose: 100 mls/hr Penicillin G Potassium 4 mu/ (Dextrose) 50 mls @ 100 mls/hr IV Q6 [facility] PRN Reason: Protocol Last Admin: 02/24/18 17:52 Dose: 100 mls/hr Lactulose (Enulose) 20 gm PO [facility] Last Admin: 02/23/18 21:28 Dose: Not Given Oxycodone HCl (Oxycontin Extended Release Tab) 20 mg PO Q12 [facility] Last Admin: 02/24/18 11:27 Dose: 20 mg Oxycodone/Acetaminophen (Percocet 5/325 Mg Tab) 2 tab PO Q4H PRN PRN Reason: Pain, moderate (4-7) Stop: 02/27/18 09:21 Last Admin: 02/24/18 17:17 Dose: 2 tab Pantoprazole Sodium (Protonix Ec Tab) 40 mg PO DAILY [facility] Last Admin: 02/24/18 11:27 Dose: 40 mg Sevelamer Carbonate (Renvela) 1,600 mg PO TID [facility] Last Admin: 02/24/18 17:52 Dose: 1,600 mg Tamsulosin HCl (Flomax) 0.4 mg PO DAILY [facility] Last Admin: 02/24/18 11:27 Dose: 0.4 mg - Labs Labs: 02/23/18 09:39 02/23/18 09:39 PT 14.8 SECONDS (9.7-12.2) H 02/09/18 15:05 INR 1.4 02/09/18 15:05 APTT 36 SECONDS (21-34) H 02/09/18 15:05 Assessment and Plan (1) Renal infection Status: Acute (2) CKD (chronic kidney disease) Status: Chronic (3) Hepatitis C Status: Chronic (4) Nephrolithiasis Status: Chronic (5) SBE (subacute bacterial endocarditis) Status: Acute
--- NOTE | 2018-02-24 22:44 | PN ---
DATE: 02/24/2018 SUBJECTIVE: The patient was seen today. He had no new complaints, but he said yesterday his sugar dropped to 70s and he was sweating a lot. He is not that bad he says. He was awake, alert. He was trying to eat. His planning is that he might be transferred to [place] for further surgery for valve, he is not sure. PHYSICAL EXAMINATION: VITAL SIGNS: T-max is 98.4, pulse 76, blood pressure is 124/55, respirations are 20. HEENT: Head is atraumatic and normocephalic. LUNGS: Clear. HEART: S1, S2 are regular. ABDOMEN: Soft, nontender. No guarding, no rigidity present. He has multiple tattoo gallego. EXTREMITIES: Have no edema. LABORATORY DATA: Otherwise, white count is 7, hemoglobin 9.6, hematocrit 28.5, platelet count is 214. His creatinine is 10.6. He has a fistula on the left upper arm. His LFTs are okay, and his repeat cultures have been negative. ASSESSMENT AND PLAN: We are continuing penicillin and vancomycin at this time both and gentamicin, so that he can get a new valve and before that, he needs . It has been so hard to keep these antibiotics. He is on penicillin. He is on gentamicin and he is on vancomycin on the dialysis. We will follow and continue present antibiotics. The patient has endocarditis with Peptostreptococcus. I will leave him on the vancomycin he was getting on Monday, Monday, and Monday. We will put him back on the same right now, and we will follow while he is here. He does have a hepatitis C also. He is a dialysis patient. He has only one kidney at this time, which has a stent and has probably nonfunctioning kidney with pus formation, which gave him an anaerobic infection. We will follow. Antonella Sexton MD
--- NOTE | 2018-02-24 23:11 | PN ---
DATE: 02/24/2018 SUBJECTIVE: The patient is afebrile, feels better. He infective endocarditis, he needs cardiac cath first and then possible nephrectomy, and then endocarditis surgery. PHYSICAL EXAMINATION: VITAL SIGNS: Blood pressure 124/55, pulse 76, respiratory rate 20, temperature 98.4. LUNGS: Clear. CVS: S1 and S2 regular. ABDOMEN: Soft. ASSESSMENT: 1. Infective endocarditis. 2. Chronic kidney disease oh hemodialysis. 3. Nephrolithiasis with obstructive uropathy. 4. End-stage renal disease. PLAN: Medical management. Monitor the patient. Mikel Marc MD
[2018-02-25] MEDS: DEXTROSE IV SCH ×5 (05:00→23:45)
[2018-02-25] MEDS: PENICILLIN POTASSIUM MU IV SCH ×5 (05:00→23:45)
[2018-02-25] MEDS: WATER IV SCH ×5 (05:00→23:45)
[2018-02-25] MEDS: Oxycodone/Acetaminophen 5/325 mg Tab PO PRN ×3 (05:15→13:14)
--- NOTE | 2018-02-25 08:27 | CARD ---
APPROVED REPORT Date of service: 02/21/2018 EKG Measurement Heart [id number] <Conclusion> Normal sinus rhythm Normal ECG
[2018-02-25] MEDS: oxyCODONE 20 mg ER Tab (oxyCONTIN) PO SCH ×2 (10:35→21:35)
[2018-02-25] MEDS: Pantoprazole 40 mg EC Tab PO SCH (10:36)
--- NOTE | 2018-02-25 23:05 | CP.PCM.PN ---
Subjective - Subjective Subjective: c.cath in am, weak, anxious, no fever, no sob Objective - Vital Signs/Intake and Output Vital Signs (last 24 hours): Temp Pulse Resp BP Pulse Ox 98.3 F 71 20 109/56 L 98 02/25/18 15:40 02/25/18 15:40 02/25/18 15:40 02/25/18 15:40 02/25/18 15:40 - Medications Medications: Current Medications Acetaminophen (Tylenol 325mg Tab) 650 mg PO Q6 PRN PRN Reason: Fever >100.4 F Alprazolam (Xanax) 0.5 mg PO BID PRN PRN Reason: Anxiety Last Admin: 02/23/18 13:43 Dose: 0.5 mg Aspirin (Aspirin Chewable) 81 mg PO DAILY [facility] Last Admin: 02/25/18 10:35 Dose: 81 mg Carvedilol (Coreg) 3.125 mg PO DAILY [facility] Last Admin: 02/25/18 10:35 Dose: 3.125 mg Epoetin Zain (Procrit) 10,000 unit IV [facility] Last Admin: 02/23/18 12:23 Dose: 10,000 unit Ferrous Sulfate (Feosol) 325 mg PO BID [facility] Last Admin: 02/25/18 17:20 Dose: 325 mg Gentamicin Sulfate 80 mg/ (Sodium Chloride) 102 mls @ 100 mls/hr IVPB [facility] PRN Reason: Protocol Last Admin: 02/23/18 08:30 Dose: 100 mls/hr Penicillin G Potassium 4 mu/ (Dextrose) 50 mls @ 100 mls/hr IV Q6 [facility] PRN Reason: Protocol Last Admin: 02/25/18 17:21 Dose: 100 mls/hr Vancomycin HCl 1 gm/ Sodium (Chloride) 200 mls @ 166.7 mls/hr IVPB [facility] PRN Reason: Protocol Lactulose (Enulose) 20 gm PO HS [facility] Last Admin: 02/25/18 21:34 Dose: 20 gm Oxycodone HCl (Oxycontin Extended Release Tab) 20 mg PO Q12 [facility] Last Admin: 02/25/18 21:35 Dose: 20 mg Oxycodone/Acetaminophen (Percocet 5/325 Mg Tab) 2 tab PO Q4H PRN PRN Reason: Pain, moderate (4-7) Stop: 02/27/18 09:21 Last Admin: 02/25/18 13:14 Dose: 2 tab Pantoprazole Sodium (Protonix Ec Tab) 40 mg PO DAILY [facility] Last Admin: 02/25/18 10:36 Dose: 40 mg Sevelamer Carbonate (Renvela) 1,600 mg PO TID [facility] Last Admin: 02/25/18 17:19 Dose: 1,600 mg Tamsulosin HCl (Flomax) 0.4 mg PO DAILY [facility] Last Admin: 02/25/18 10:35 Dose: 0.4 mg - Labs Labs: 02/23/18 09:39 02/23/18 09:39 PT 14.8 SECONDS (9.7-12.2) H 02/09/18 15:05 INR 1.4 02/09/18 15:05 APTT 36 SECONDS (21-34) H 02/09/18 15:05 - Constitutional Appears: Non-toxic, No Acute Distress - Head Exam Head Exam: NORMOCEPHALIC - Eye Exam Eye Exam: EOMI, Normal appearance, PERRL Pupil Exam: NORMAL ACCOMODATION - ENT Exam ENT Exam: Mucous Membranes Moist, Normal Exam, Normal Oropharynx, TM's Normal Bilaterally - Neck Exam Neck Exam: Normal Inspection - Respiratory Exam Respiratory Exam: NORMAL BREATHING PATTERN - Cardiovascular Exam Cardiovascular Exam: REGULAR RHYTHM, +S1, +S2 - GI/Abdominal Exam GI & Abdominal Exam: Soft, Normal Bowel Sounds - Rectal Exam Rectal Exam: NORMAL INSPECTION - Extremities Exam Extremities Exam: Normal Capillary Refill - Back Exam Back Exam: NORMAL INSPECTION - Neurological Exam Neurological Exam: Awake, CN II-XII Intact, Normal Gait, Oriented x3 - Psychiatric Exam Psychiatric exam: Anxious, Normal Affect, Normal Mood - Skin Skin Exam: Dry, Intact Assessment and Plan (1) Renal infection Status: Acute (2) CKD (chronic kidney disease) Status: Chronic (3) Hepatitis C Status: Chronic (4) Nephrolithiasis Status: Chronic (5) SBE (subacute bacterial endocarditis) Status: Acute
[2018-02-26] MEDS: DEXTROSE IV SCH ×3 (05:40→17:44)
[2018-02-26] MEDS: PENICILLIN POTASSIUM MU IV SCH ×3 (05:40→17:44)
[2018-02-26] MEDS: WATER IV SCH ×3 (05:40→17:44)
[2018-02-26] MEDS ORDERED: Vancomycin 1 GM in Sodium Chloride 0.9% 200 ML IVPB SCH (09:00)
[2018-02-26] MEDS: oxyCODONE 20 mg ER Tab (oxyCONTIN) PO SCH ×2 (10:00→21:48)
[2018-02-26] MEDS: Epoetin Alfa 10,000 unit/ml Dialysis IV SCH (11:51)
--- NOTE | 2018-02-26 12:31 | CP.PCM.PN ---
Subjective - Date & Time of Evaluation Date of Evaluation: 02/26/18 Time of Evaluation: 12:29 - Subjective Subjective: seen at dialysis; plans for nehrectomy as per pt To UF 4500ml- tolerated well so far remains on IV ABs for SBE no new complaint Objective - Vital Signs/Intake and Output Vital Signs (last 24 hours): Temp Pulse Resp BP Pulse Ox 98.3 F 76 16 105/35 L 100 02/26/18 09:57 02/26/18 09:57 02/26/18 09:57 02/26/18 11:35 02/26/18 07:00 Intake and Output: 02/26/18 02/26/18 06:59 18:59 Intake Total 600 Balance 600 - Medications Medications: Current Medications Acetaminophen (Tylenol 325mg Tab) 650 mg PO Q6 PRN PRN Reason: Fever >100.4 F Alprazolam (Xanax) 0.5 mg PO BID PRN PRN Reason: Anxiety Last Admin: 02/23/18 13:43 Dose: 0.5 mg Aspirin (Aspirin Chewable) 81 mg PO DAILY [facility] Last Admin: 02/25/18 10:35 Dose: 81 mg Carvedilol (Coreg) 3.125 mg PO DAILY [facility] Last Admin: 02/25/18 10:35 Dose: 3.125 mg Epoetin Zain (Procrit) 10,000 unit IV MWF [facility] Last Admin: 02/26/18 11:51 Dose: 10,000 unit Ferrous Sulfate (Feosol) 325 mg PO BID [facility] Last Admin: 02/26/18 09:31 Dose: Not Given Gentamicin Sulfate 80 mg/ (Sodium Chloride) 102 mls @ 100 mls/hr IVPB MWF [facility] PRN Reason: Protocol Last Admin: 02/23/18 08:30 Dose: 100 mls/hr Penicillin G Potassium 4 mu/ (Dextrose) 50 mls @ 100 mls/hr IV Q6 [facility] PRN Reason: Protocol Last Admin: 02/26/18 11:55 Dose: Not Given Vancomycin HCl 1 gm/ Sodium (Chloride) 200 mls @ 166.7 mls/hr IVPB MWF [facility] PRN Reason: Protocol Lactulose (Enulose) 20 gm PO [facility] Last Admin: 02/25/18 21:34 Dose: 20 gm Oxycodone HCl (Oxycontin Extended Release Tab) 20 mg PO Q12 [facility] Last Admin: 02/26/18 10:00 Dose: Not Given Oxycodone/Acetaminophen (Percocet 5/325 Mg Tab) 2 tab PO Q4H PRN PRN Reason: Pain, moderate (4-7) Stop: 02/27/18 09:21 Last Admin: 02/25/18 13:14 Dose: 2 tab Pantoprazole Sodium (Protonix Ec Tab) 40 mg PO DAILY [facility] Last Admin: 02/25/18 10:36 Dose: 40 mg Sevelamer Carbonate (Renvela) 1,600 mg PO TID [facility] Last Admin: 02/26/18 09:31 Dose: Not Given Tamsulosin HCl (Flomax) 0.4 mg PO DAILY [facility] Last Admin: 02/25/18 10:35 Dose: 0.4 mg - Labs Labs: 02/23/18 09:39 02/23/18 09:39 PT 14.8 SECONDS (9.7-12.2) H 02/09/18 15:05 INR 1.4 02/09/18 15:05 APTT 36 SECONDS (21-34) H 02/09/18 15:05 - Constitutional Appears: No Acute Distress, Chronically Ill - Head Exam Head Exam: ATRAUMATIC, NORMAL INSPECTION - Eye Exam Eye Exam: EOMI, Normal appearance - Neck Exam Neck Exam: Normal Inspection. absent: Tenderness - Respiratory Exam Respiratory Exam: Clear to Ausculation Bilateral, NORMAL BREATHING PATTERN - Cardiovascular Exam Cardiovascular Exam: REGULAR RHYTHM, +S1 - GI/Abdominal Exam GI & Abdominal Exam: Soft. absent: Tenderness - Extremities Exam Extremities Exam: Normal Inspection. absent: Tenderness - Neurological Exam Neurological Exam: Alert, CN II-XII Intact - Skin Skin Exam: Dry, Warm Assessment and Plan (1) Chronic pyelonephritis Status: Acute (2) ESRD (end stage renal disease) Status: Acute (3) Xanthogranulomatous pyelonephritis Status: Acute (4) SBE (subacute bacterial endocarditis) Status: Acute - Assessment and Plan (Free Text) Plan: Dialysis MWF Adequate UF IV ABs Await nephrectomy
[2018-02-26] MEDS: Pantoprazole 40 mg EC Tab PO SCH (14:06)
[2018-02-26] MEDS: Oxycodone/Acetaminophen 5/325 mg Tab PO PRN (14:07)
[2018-02-26 16:05] VITALS: RESP 20
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
--- NOTE | 2018-02-26 21:50 | CP.PCM.PN ---
Objective - Vital Signs/Intake and Output Vital Signs (last 24 hours): Temp Pulse Resp BP Pulse Ox 97.7 F 73 20 131/59 L 99 02/26/18 15:00 02/26/18 15:00 02/26/18 15:00 02/26/18 15:00 02/26/18 15:00 Intake and Output: 02/26/18 02/27/18 18:59 06:59 Intake Total 500 Balance 500 - Medications Medications: Current Medications Acetaminophen (Tylenol 325mg Tab) 650 mg PO Q6 PRN PRN Reason: Fever >100.4 F Alprazolam (Xanax) 0.5 mg PO BID PRN PRN Reason: Anxiety Last Admin: 02/23/18 13:43 Dose: 0.5 mg Aspirin (Aspirin Chewable) 81 mg PO DAILY [facility] Last Admin: 02/26/18 14:06 Dose: 81 mg Carvedilol (Coreg) 3.125 mg PO DAILY [facility] Last Admin: 02/26/18 14:06 Dose: 3.125 mg Epoetin Zain (Procrit) 10,000 unit IV MWF [facility] Last Admin: 02/26/18 11:51 Dose: 10,000 unit Ferrous Sulfate (Feosol) 325 mg PO BID [facility] Last Admin: 02/26/18 17:43 Dose: 325 mg Gentamicin Sulfate 80 mg/ (Sodium Chloride) 102 mls @ 100 mls/hr IVPB MWF [facility] PRN Reason: Protocol Last Admin: 02/26/18 14:06 Dose: 100 mls/hr Penicillin G Potassium 4 mu/ (Dextrose) 50 mls @ 100 mls/hr IV Q6 [facility] PRN Reason: Protocol Last Admin: 02/26/18 17:44 Dose: 100 mls/hr Vancomycin HCl 1 gm/ Sodium (Chloride) 200 mls @ 166.7 mls/hr IVPB MWF [facility] PRN Reason: Protocol Last Admin: 02/26/18 15:37 Dose: 166.7 mls/hr Lactulose (Enulose) 20 gm PO HS [facility] Last Admin: 02/26/18 21:02 Dose: Not Given Oxycodone HCl (Oxycontin Extended Release Tab) 20 mg PO Q12 [facility] Last Admin: 02/26/18 21:48 Dose: 20 mg Oxycodone/Acetaminophen (Percocet 5/325 Mg Tab) 2 tab PO Q4H PRN PRN Reason: Pain, moderate (4-7) Stop: 02/27/18 09:21 Last Admin: 02/26/18 14:07 Dose: 2 tab Pantoprazole Sodium (Protonix Ec Tab) 40 mg PO DAILY [facility] Last Admin: 02/26/18 14:06 Dose: 40 mg Sevelamer Carbonate (Renvela) 1,600 mg PO TID [facility] Last Admin: 02/26/18 17:43 Dose: 1,600 mg Tamsulosin HCl (Flomax) 0.4 mg PO DAILY [facility] Last Admin: 02/26/18 14:06 Dose: 0.4 mg - Labs Labs: 02/23/18 09:39 02/23/18 09:39 PT 14.8 SECONDS (9.7-12.2) H 02/09/18 15:05 INR 1.4 02/09/18 15:05 APTT 36 SECONDS (21-34) H 02/09/18 15:05 Assessment and Plan (1) Renal infection Status: Acute (2) CKD (chronic kidney disease) Status: Chronic (3) Hepatitis C Status: Chronic (4) Nephrolithiasis Status: Chronic (5) SBE (subacute bacterial endocarditis) Status: Acute
--- NOTE | 2018-02-27 02:09 | PN ---
DATE: 02/26/2018 SUBJECTIVE: The patient is for cardiac cath in a.m. No fever, no chills. On antibiotics, positive infective endocarditis. PHYSICAL EXAMINATION: VITAL SIGNS: Blood pressure 131/59, pulse 73, respiratory rate 20, temperature 97.7. LUNGS: Clear. CVS: S1 and S2 regular. ABDOMEN: Soft. ASSESSMENT: 1. Infective endocarditis. The patient is for cardiac catheterization and the patient is for valve surgery. 2. Chronic kidney disease on hemodialysis. 3. Nephrolithiasis with pyelonephritis. 4. Anxiety and depression. PLAN: Antibiotics. Monitor the patient. Mikel Marc MD
[2018-02-27] MEDS: WATER IV SCH ×4 (05:45→17:33)
[2018-02-27] MEDS: PENICILLIN POTASSIUM MU IV SCH ×4 (05:45→17:33)
[2018-02-27] MEDS: DEXTROSE IV SCH ×4 (05:45→17:33)
[2018-02-27] MEDS ORDERED: Midazolam 2 MG/2 ML VIAL ONE ×2 (09:33→09:56)
[2018-02-27] MEDS ORDERED: Iodixanol 320 MG/ML 200 ML BOTTLE IV ONE (09:34)
[2018-02-27] MEDS ORDERED: Iodixanol 320 MG/ML 100 ML BOTTLE IV ONE (09:34)
[2018-02-27] MEDS ORDERED: Nitroglycerin 50mg in D5W 50 MG/250 ML BOTTLE IV ONE (09:47)
[2018-02-27] MEDS ORDERED: Verapamil 2 ML ONE (09:47)
--- NOTE | 2018-02-27 10:59 | CP.PCM.PN ---
Subjective - Date & Time of Evaluation Date of Evaluation: 02/27/18 Time of Evaluation: 10:57 - Subjective Subjective: For cardiac cath now Tolerated HD well 02/26 Remains on IV ABs Noted that patient will need AVR procedure Objective - Vital Signs/Intake and Output Vital Signs (last 24 hours): Temp Pulse Resp BP Pulse Ox 98.1 F 84 20 156/64 H 99 02/27/18 07:00 02/27/18 07:00 02/27/18 07:00 02/27/18 07:00 02/27/18 07:00 - Medications Medications: Current Medications Acetaminophen (Tylenol 325mg Tab) 650 mg PO Q6 PRN PRN Reason: Fever >100.4 F Alprazolam (Xanax) 0.5 mg PO BID PRN PRN Reason: Anxiety Last Admin: 02/23/18 13:43 Dose: 0.5 mg Aspirin (Aspirin Chewable) 81 mg PO DAILY [facility] Last Admin: 02/26/18 14:06 Dose: 81 mg Carvedilol (Coreg) 3.125 mg PO DAILY [facility] Last Admin: 02/26/18 14:06 Dose: 3.125 mg Ferrous Sulfate (Feosol) 325 mg PO BID [facility] Last Admin: 02/26/18 17:43 Dose: 325 mg Gentamicin Sulfate 80 mg/ (Sodium Chloride) 102 mls @ 100 mls/hr IVPB MWF [facility] PRN Reason: Protocol Last Admin: 02/26/18 14:06 Dose: 100 mls/hr Penicillin G Potassium 4 mu/ (Dextrose) 50 mls @ 100 mls/hr IV Q6 [facility] PRN Reason: Protocol Last Admin: 02/27/18 05:45 Dose: 100 mls/hr Vancomycin HCl 1 gm/ Sodium (Chloride) 200 mls @ 166.7 mls/hr IVPB MWF [facility] PRN Reason: Protocol Last Admin: 02/26/18 15:37 Dose: 166.7 mls/hr Lactulose (Enulose) 20 gm PO HS [facility] Last Admin: 02/26/18 21:02 Dose: Not Given Pantoprazole Sodium (Protonix Ec Tab) 40 mg PO DAILY [facility] Last Admin: 02/26/18 14:06 Dose: 40 mg Sevelamer Carbonate (Renvela) 1,600 mg PO TID [facility] Last Admin: 02/26/18 17:43 Dose: 1,600 mg Tamsulosin HCl (Flomax) 0.4 mg PO DAILY [facility] Last Admin: 02/26/18 14:06 Dose: 0.4 mg - Labs Labs: 02/23/18 09:39 02/23/18 09:39 PT 14.8 SECONDS (9.7-12.2) H 02/09/18 15:05 INR 1.4 02/09/18 15:05 APTT 36 SECONDS (21-34) H 02/09/18 15:05 - Constitutional Appears: No Acute Distress, Chronically Ill - Head Exam Head Exam: ATRAUMATIC, NORMAL INSPECTION - Eye Exam Eye Exam: EOMI, Normal appearance - Neck Exam Neck Exam: Normal Inspection. absent: Tenderness - Respiratory Exam Respiratory Exam: Clear to Ausculation Bilateral, NORMAL BREATHING PATTERN - Cardiovascular Exam Cardiovascular Exam: REGULAR RHYTHM, +S1 - GI/Abdominal Exam GI & Abdominal Exam: Soft. absent: Tenderness - Extremities Exam Extremities Exam: Normal Inspection. absent: Tenderness - Neurological Exam Neurological Exam: Awake, CN II-XII Intact - Skin Skin Exam: Dry, Warm Assessment and Plan (1) Chronic pyelonephritis Status: Acute (2) ESRD (end stage renal disease) Status: Acute (3) Xanthogranulomatous pyelonephritis Status: Acute (4) SBE (subacute bacterial endocarditis) Status: Acute - Assessment and Plan (Free Text) Plan: Cardiac cath now Dialysis MWF IV ABs
[2018-02-27] MEDS: Pantoprazole 40 mg EC Tab PO SCH (11:02)
[2018-02-27] MEDS ORDERED: Pantoprazole 20 mg EC Tab PO SCH (12:45)
[2018-02-27 16:28] VITALS: BP 139/51; PULSE 78; TEMP 98.6; O2SAT 97
--- NOTE | 2018-02-27 22:37 | CP.PCM.PN ---
Subjective - Date & Time of Evaluation Date of Evaluation: 02/27/18 Time of Evaluation: 14:30 - Subjective Subjective: dictated Objective - Vital Signs/Intake and Output Vital Signs (last 24 hours): Temp Pulse Resp BP Pulse Ox 98.6 F 78 20 139/51 L 97 02/27/18 15:00 02/27/18 15:00 02/27/18 15:00 02/27/18 15:00 02/27/18 15:00 Intake and Output: 02/27/18 02/28/18 18:59 06:59 Intake Total 240 Balance 240 - Medications Medications: Current Medications Acetaminophen (Tylenol 325mg Tab) 650 mg PO Q6 PRN PRN Reason: Fever >100.4 F Alprazolam (Xanax) 0.5 mg PO BID PRN PRN Reason: Anxiety Last Admin: 02/27/18 20:27 Dose: 0.5 mg Aspirin (Aspirin Chewable) 81 mg PO DAILY [facility] Last Admin: 02/27/18 11:01 Dose: Not Given Carvedilol (Coreg) 3.125 mg PO DAILY [facility] Last Admin: 02/27/18 11:02 Dose: Not Given Ferrous Sulfate (Feosol) 325 mg PO BID [facility] Last Admin: 02/27/18 17:33 Dose: 325 mg Gentamicin Sulfate 80 mg/ (Sodium Chloride) 102 mls @ 100 mls/hr IVPB MWF [facility] PRN Reason: Protocol Last Admin: 02/26/18 14:06 Dose: 100 mls/hr Penicillin G Potassium 4 mu/ (Dextrose) 50 mls @ 100 mls/hr IV Q6 [facility] PRN Reason: Protocol Last Admin: 02/27/18 17:33 Dose: 100 mls/hr Vancomycin HCl 1 gm/ Sodium (Chloride) 200 mls @ 166.7 mls/hr IVPB MWF [facility] PRN Reason: Protocol Last Admin: 02/26/18 15:37 Dose: 166.7 mls/hr Lactulose (Enulose) 20 gm PO HS [facility] Last Admin: 02/27/18 21:47 Dose: Not Given Pantoprazole Sodium (Protonix Ec Tab) 20 mg PO DAILY [facility] Last Admin: 02/27/18 14:46 Dose: 20 mg Sevelamer Carbonate (Renvela) 1,600 mg PO TID [facility] Last Admin: 02/27/18 17:32 Dose: 1,600 mg Tamsulosin HCl (Flomax) 0.4 mg PO DAILY [facility] Last Admin: 02/27/18 11:02 Dose: Not Given - Labs Labs: 02/23/18 09:39 02/23/18 09:39 PT 14.8 SECONDS (9.7-12.2) H 02/09/18 15:05 INR 1.4 02/09/18 15:05 APTT 36 SECONDS (21-34) H 02/09/18 15:05
--- NOTE | 2018-02-27 22:57 | CARDCATH ---
PROCEDURE DATE: 02/28/2018 INDICATIONS: Wei Frank is a 47-year-old male, admitted with infection of his kidney, diagnosed with sepsis, PE, aortic valve endocarditis, underwent a cardiac catheterization, for preoperative evaluation prior to resection of his kidneys and possible aortic valve replacement. PROCEDURE PERFORMED: Left heart catheterization with selective left and right coronary angiograms via right radial arterial approach, 6-Monegasque radial arterial access, wrist band for hemostasis. TECHNIQUES OF PROCEDURE: After obtaining informed consent, the patient was brought to the cardiac cath suite in post-absorptive and non-sedative state. The patient was prepped and draped in the usual sterile fashion. Lidocaine 2% was used for infiltration anesthesia. Using modified Seldinger technique, a 6-Monegasque sheath was introduced into the right radial artery. Subsequently over a J-wire, 5-[place]gasque diagnostic catheter was used to engage the left and right coronary systems. Angiograms were obtained in different orthogonal views. A [place] was used to obtain LVEDP. LV gram was obtained in the [place] view. HEMODYNAMIC FINDINGS: Left ventricular end-diastolic pressure was 25 mmHg. There was no gradient noted upon the aortic valve pullback. No AI. No MR. Left ventricular ejection fraction is estimated to be 50% to 55%. CORONARY ANATOMY: Left main is a large sized vessel, bifurcates into LAD and circumflex. LAD is a large sized vessel, gives off two small diagonal branches with mild luminal irregularities. Proximal, mid and distal LAD less than 25% stenosis. Left circumflex runs in the AV groove, gives off one medium sized obtuse marginal branch with mild luminal irregularity. Left circumflex proximal, mid, distal 0%, obtuse marginal 0%, RCA large-sized vessel, codominant circulation, proximal 40% stenosis. IMPRESSION: Nonobstructive coronary artery disease. Normal ejection fraction. Mildly elevated end diastolic pressure. RECOMMENDATIONS: The patient is to be transferred over to [facility] for renal resection and then subsequently aortic valve replacement for aortic valve endocarditis. Naresh Schultz MD
--- NOTE | 2018-02-28 02:26 | PN ---
DATE: 02/27/2018 SUBJECTIVE: The patient was seen today. He was saying that he had the procedure done. He showed me the dressing on his wrist from where they did the cardiac cath. He is going to go to another hospital for his kidney removal and then he will undergo valve surgery that is the plan. We should continue these antibiotics at this time which can be decreased after he gets the valve surgery, may be gentamicin can go but at this time, I have left them all on since he was really ill, and now he has no breathing troubles. PHYSICAL EXAMINATION: VITAL SIGNS: T-max is 98.6, pulse 78, blood pressure 139/51, respiration are 20. HEENT: Head is atraumatic, normocephalic. He is alert and awake. Has multiple tattoo gallego. LUNGS: Clear. HEART: S1 and S2 are regular. No murmurs appreciated. ABDOMEN: Soft and nontender. No guarding, no rigidity present. EXTREMITIES: Left arm has a fistula which is very prominent and bulging, but its function is okay. IMPRESSION: This patient has a Peptostreptococcus related endocarditis. He is an ex-intravenous drug abuser. Has not used drugs since 2013. I think the Peptostreptococcus came from the kidney. Left kidney infection which has stent, which has stones, which has infection. PLAN: To get the kidney removal done and to get aortic valve replacement done and to clear the infection with the antibiotics. Antonella Sexton MD
--- NOTE | 2018-02-28 02:39 | PN ---
DATE: 02/27/2018 SUBJECTIVE: The patient is for cardiac catheterization today. He is afebrile. No chest pain. No nausea, vomiting. Seen by Renal. PHYSICAL EXAMINATION: VITAL SIGNS: Blood pressure is 139/51, pulse 78, respiratory rate 20, temperature 98.6. LUNGS: Clear. CVS: S1, S2 regular. ABDOMEN: Soft. ASSESSMENT: 1. Infective endocarditis. 2. Chronic kidney disease. 3. Nephrolithiasis. 4. Indigestion. PLAN: Continue current medication. Monitor the patient. Mikel Marc MD
[2018-02-28] MEDS: WATER IV SCH ×2 (05:05)
[2018-02-28] MEDS: DEXTROSE IV SCH ×2 (05:05)
[2018-02-28] MEDS: PENICILLIN POTASSIUM MU IV SCH ×2 (05:05)
== END 2018-02-28 07:25 | disposition short-term general hospital (02) | DRG 584 ==
LOC: C.ER 13:54 → C.9E 16:40 → C.3T 18:44 → C.6T 02-10 21:24 → C.3T 02-10 21:30 → C.6T 02-10 22:39
PROVIDERS: ADMIT Internal Medicine; ATTEND Internal Medicine
PROC: 5A1D70Z Performance of Urinary Filtration, Intermittent, Less than 6 Hours Per Day (ICD-10-PCS; 2018-02-12)
PROC: 5A1D70Z Performance of Urinary Filtration, Intermittent, Less than 6 Hours Per Day (ICD-10-PCS; 2018-02-16)
PROC: 5A1D70Z Performance of Urinary Filtration, Intermittent, Less than 6 Hours Per Day (ICD-10-PCS; 2018-02-19)
PROC: 5A1D70Z Performance of Urinary Filtration, Intermittent, Less than 6 Hours Per Day (ICD-10-PCS; 2018-02-21)
PROC: 5A1D70Z Performance of Urinary Filtration, Intermittent, Less than 6 Hours Per Day (ICD-10-PCS; 2018-02-26)
PROC: 4A023N7 Measurement of Cardiac Sampling and Pressure, Left Heart, Percutaneous Approach (ICD-10-PCS; principal; 2018-02-27)
PROC: B2111ZZ Fluoroscopy of Multiple Coronary Arteries using Low Osmolar Contrast (ICD-10-PCS; 2018-02-27)
PROC: B2151ZZ Fluoroscopy of Left Heart using Low Osmolar Contrast (ICD-10-PCS; 2018-02-27)
PROC: 5A1D70Z Performance of Urinary Filtration, Intermittent, Less than 6 Hours Per Day (ICD-10-PCS; 2018-02-27)
DX: A40.8 Other streptococcal sepsis (principal); N13.6 Pyonephrosis; I33.0 Acute and subacute infective endocarditis; I76 Septic arterial embolism; I13.2 Hypertensive heart and chronic kidney disease with heart failure and with stage 5 chronic kidney disease, or end stage renal disease; R65.20 Severe sepsis without septic shock; I35.2 Nonrheumatic aortic (valve) stenosis with insufficiency; N11.9 Chronic tubulo-interstitial nephritis, unspecified; N18.6 End stage renal disease; N10 Acute pyelonephritis; B18.2 Chronic viral hepatitis C; I50.9 Heart failure, unspecified; I25.10 Atherosclerotic heart disease of native coronary artery without angina pectoris; D64.9 Anemia, unspecified; G40.909 Epilepsy, unspecified, not intractable, without status epilepticus; F32.9 Major depressive disorder, single episode, unspecified; F41.9 Anxiety disorder, unspecified; K59.00 Constipation, unspecified; G89.29 Other chronic pain; F17.210 Nicotine dependence, cigarettes, uncomplicated; Z99.2 Dependence on renal dialysis; Z90.5 Acquired absence of kidney

== ENCOUNTER 2018-04-12 15:50 | Inpatient (IN) | payer OTHER ==
[2018-04-12 15:50] VITALS: BMI 25.2
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
[2018-04-12] MEDS ORDERED: Morphine 4 MG/ML VIAL ONE ×2 (16:32→19:28)
[2018-04-12 16:35] LABS: BASO % 0.3 % (0.0-2.0); EOS # 0.1 K/uL (0.0-0.7); EOS % 0.9 % (0.0-4.0); HEMOGLOBIN 11.8 g/dL (12.0-18.0); MEAN CELL VOLUME 93.8 fL (80.0-94.0); MEAN CORPUSCULAR HEMOGLOBIN 31.4 pg (27.0-31.0); MEAN CORPUSCULAR HGB CONC 33.5 g/dL (33.0-37.0); MONO # 0.6 K/uL (0.0-0.8); MONO % 5.5 % (0.0-10.0); NEUT # 9.3 K/uL (1.8-7.0); NEUT % 84.3 % (50.0-75.0); NRBC % 0.1 % (0.0-2.0); PLATELET COUNT 203 K/uL (130-400); RBC 3.77 Mil/uL (4.40-5.90); RED CELL DISTRIBUTION WIDTH 15.6 % (11.5-14.5)
[2018-04-12 16:45] LABS: INR 1.3; PROTHROMBIN TIME 13.8 SECONDS (9.7-12.2)
[2018-04-12 17:03] LABS: ALB/GLOB RATIO 1.1 (1.0-2.1); ALBUMIN 4.2 g/dL (3.5-5.0); CALCIUM 9.5 mg/dl (8.6-10.4)
--- NOTE | 2018-04-12 17:28 | CT ---
PROCEDURE: CT Abdomen and Pelvis without Oral or IV contrast. HISTORY: rlq pain. hernia vs stone vs appdx COMPARISON: CT of the abdomen and pelvis without contrast performed 02/09/18 TECHNIQUE: Contiguous axial images of the abdomen and pelvis. No oral or IV contrast administered. Coronal and Sagittal reformats generated and reviewed. Radiation dose: Total exam DLP = 508.45 mGy-cm. This CT exam was performed using one or more of the following dose reduction techniques: Automated exposure control, adjustment of the mA and/or kV according to patient size, and/or use of iterative reconstruction technique. FINDINGS: There is limited evaluation of the solid organs without the administration of IV contrast. LOWER THORAX: Left basilar atelectasis. There is no visible pleural effusion or pneumothorax. Small probable calcified granulomas. Mitral annulus calcification. Cardiomegaly. Coronary artery calcifications. Small hiatal hernia/distal esophageal wall thickening. LIVER: Hepatomegaly. GALLBLADDER AND BILE DUCTS: Unremarkable unenhanced appearance. PANCREAS: Unremarkable unenhanced appearance. SPLEEN: Unremarkable unenhanced appearance. ADRENALS: Bilateral adrenal gland hypertrophy. KIDNEYS AND URETERS: Left nephrectomy. Large staghorn calculi. Indwelling ureteral stent with relative decompression of the upper pole calices. Severe residual mid to lower pole hydronephrosis likely secondary to large staghorn calculus as on prior study. BLADDER: The urinary bladder appears unremarkable. REPRODUCTIVE: Unremarkable. APPENDIX: The appendix appears within normal limits of caliber. Suspect appendicoliths. Minimal adjacent inflammatory change. BOWEL: The stomach is nondistended. Lack of oral contrast limits evaluation for bowel pathology. The bowel loops appear within normal limits of caliber without evidence of intestinal obstruction. PERITONEUM: No significant free fluid. No definite free air. LYMPH NODES: Nonspecific prominent mesenteric and retroperitoneal lymph nodes. VASCULATURE: Atherosclerotic calcifications of the aorta. No aortic aneurysm. BONES: Extensive degenerative changes. The bones appear diffusely sclerotic presumably due to renal osteodystrophy. Correlate clinically. OTHER FINDINGS: Tiny fat containing ventral hernia. IMPRESSION: Left nephrectomy. Large staghorn calculi. Indwelling ureteral stent with relative decompression of the upper pole calices. Severe residual mid to lower pole hydronephrosis likely secondary to large staghorn calculus as on prior study. Probable appendicoliths. The appendix appears within normal limits of caliber. Minimal adjacent inflammatory change. Acute appendicitis is considered less likely however not excluded. Correlate clinically. Nonspecific prominent mesenteric and retroperitoneal lymph nodes. The bones appear diffusely sclerotic presumably due to renal osteodystrophy. Correlate clinically. Additional findings as above.
[2018-04-12 18:24] LABS: BANDS 2 % (0-2); EOSINOPHIL 2 % (0-4); LYMPHOCYTE 12 % (20-40); MONOCYTE 4 % (0-10); NEUTROPHIL 80 % (50-75); PLATELET ESTIMATE NORMAL (NORMAL); TOTAL CELLS COUNTED 100
[2018-04-12] MEDS ORDERED: Ciprofloxacin 400mg/200ml D5W 400 MG/200 ML BAG IVPB STA (18:37)
[2018-04-12] MEDS ORDERED: metroNIDAZOLE IV 500 mg/100 ml 500 MG/100 ML BAG IVPB STA (18:37)
[2018-04-12] MEDS ORDERED: Sodium Chloride 0.9% 1,000 ML IV SCH (18:45)
[2018-04-12] MEDS ORDERED: Sodium Chloride 0.9% 1,000 ML ONE (19:03)
[2018-04-12] MEDS ORDERED: metroNIDAZOLE IV 500 mg/100 ml 500 MG/100 ML BAG ONE (19:03)
[2018-04-12] MEDS: POLYETHYLENE GLYCOL 3350 17 GM/Dose PACKET PO SCH (20:16)
[2018-04-12] MEDS ORDERED: Oxycodone/Acetaminophen 5/325 mg Tab PO PRN ×3 (20:44→23:33)
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
[2018-04-12] MEDS ORDERED: HYDROmorphone 0.5 mg/0.5 ml ISec IVP PRN (23:33)
[2018-04-13] MEDS: metroNIDAZOLE IV 500 mg/100 ml 500 MG/100 ML BAG IVPB SCH ×3 (04:33→21:00)
[2018-04-13 07:55] LABS: BASO % 0.5 % (0.0-2.0); EOS # 0.1 K/uL (0.0-0.7); EOS % 1.6 % (0.0-4.0); HEMOGLOBIN 10.7 g/dL (12.0-18.0); LYMPH # 1.5 K/uL (1.0-4.3); LYMPH % 18.1 % (20.0-40.0); MEAN CELL VOLUME 94.6 fL (80.0-94.0); MEAN CORPUSCULAR HEMOGLOBIN 31.6 pg (27.0-31.0); MEAN CORPUSCULAR HGB CONC 33.4 g/dL (33.0-37.0); MONO # 0.4 K/uL (0.0-0.8); MONO % 5.3 % (0.0-10.0); NEUT % 74.5 % (50.0-75.0); RBC 3.4 Mil/uL (4.40-5.90)
[2018-04-13 07:59] LABS: INR 1.3; PROTHROMBIN TIME 14.1 SECONDS (9.7-12.2)
[2018-04-13] MEDS ORDERED: Sodium Chloride 0.9% 1,000 ML IV ONE (08:09)
[2018-04-13 08:13] LABS: ABG ALLEN TEST POS; ARTERIAL BLOOD GAS HCO3 27.6 mmol/L (21-28); ARTERIAL BLOOD GAS O2 SAT 97.8 % (95-98); ARTERIAL BLOOD GAS PCO2 40 mm/Hg (35-45); ARTERIAL BLOOD GAS PH 7.45 (7.35-7.45); ARTERIAL BLOOD GAS PO2 74 mm/Hg (80-100)
--- NOTE | 2018-04-13 08:22 | RAD ---
Date of service: 04/12/2018 HISTORY: pre-op eval COMPARISON: No prior. FINDINGS: LUNGS: The lungs are well inflated and clear. There is mild pulmonary venous congestion. PLEURA: No pleural effusions or pneumothorax. CARDIOVASCULAR: There is mild cardiomegaly. No aortic atherosclerotic calcification present. OSSEOUS STRUCTURES: Within normal limits for the patient's age. VISUALIZED UPPER ABDOMEN: Normal. OTHER FINDINGS: None. IMPRESSION: No active pulmonary disease.
[2018-04-13 08:47] LABS: ALBUMIN 3.9 g/dL (3.5-5.0); CALCIUM 9.2 mg/dl (8.6-10.4)
[2018-04-13] MEDS: Ciprofloxacin 200mg/100ml D5W 100 ML IVPB SCH ×2 (09:49→22:00)
[2018-04-13] MEDS: POLYETHYLENE GLYCOL 3350 17 GM/Dose PACKET PO SCH ×2 (11:00→17:13)
[2018-04-13] MEDS: Pantoprazole 40 mg EC Tab PO SCH (11:00)
[2018-04-13] MEDS ORDERED: Bupivacaine-Epi 0.5%-1:200,000 PF Inj ONE (11:11)
[2018-04-13] MEDS ORDERED: Propofol 10 mg/ml Inj (20 ML) ONE (12:21)
[2018-04-13] MEDS ORDERED: ceFAZolin 1 gm in NS 0 GM/0 ML BAG IVPB ONE (12:22)
[2018-04-13] MEDS ORDERED: Etomidate 20 mg/10ml Inj IV ONE (12:22)
[2018-04-13] MEDS ORDERED: Rocuronium 10 mg/ml (5 ml) ONE (12:22)
[2018-04-13] MEDS ORDERED: Midazolam 2 MG/2 ML VIAL ONE (12:22)
[2018-04-13] MEDS ORDERED: Vasopressin 20 Units/ml Inj ONE (13:34)
[2018-04-13] MEDS ORDERED: Neostigmine Methylsulfate 3mg/3ml Syringe IV ONE (13:34)
[2018-04-13] MEDS ORDERED: Phenylephrine 10 mg/ml Inj ONE (13:34)
--- NOTE | 2018-04-13 14:18 | PCM.SURG1 ---
Surgeon's Initial Post Op Note - Surgeon's Notes Surgeon: Dr. Gonzalez Plywood Patcher: Dr. Carr PGY-3, Dr. Barth PGY-4 Type of Anesthesia: General Endo Anesthesia Administered By: Dr. Khalil Pre-Operative Diagnosis: Abdominal pain, Rule out Appendicitis Operative Findings: See operative report Post-Operative Diagnosis: necrotic segment of cecum, no appendicitis Operation Performed: Diagnostic Laparoscopy, Ex-Lap with ileocecectomy Specimen/Specimens Removed: ileocecum Estimated Blood Loss: EBL {In ML}: 100 Blood Products Given: N/A Drains Used: No Drains Post-Op Condition: Good Date of Surgery/Procedure: 04/13/18 Time of Surgery/Procedure: 14:19
[2018-04-13] MEDS ORDERED: HYDROmorphone 0.5 mg/0.5 ml ISec IVP PRN (14:22)
[2018-04-13] MEDS ORDERED: Lactated Ringer's 1,000 ML IV SCH (14:30)
[2018-04-13] MEDS: HYDROmorphone 0.5 mg/0.5 ml ISec IVP PRN ×3 (14:45→18:42)
[2018-04-13] MEDS ORDERED: Lactated Ringer's 1,000 ML IV ONE ×3 (15:13)
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
[2018-04-13] MEDS ORDERED: Valproate 250 MG in Sodium Chloride 0.9% 100 ML IVPB ONE (18:30)
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
--- NOTE | 2018-04-13 21:26 | CARD ---
APPROVED REPORT Date of service: 04/12/2018 EKG Measurement Heart [id number] <Conclusion> Normal sinus rhythm Moderate voltage criteria for LVH, may be normal variant Abnormal QRS-T angle, consider primary T wave abnormality Abnormal ECG
[2018-04-13] MEDS: HYDROmorphone 1 mg/ml ISec IVP PRN (21:55)
--- NOTE | 2018-04-13 23:26 | CON ---
DATE: 04/12/2018 CARDIOLOGY CONSULTATION REASON FOR CONSULTATION: Preoperative evaluation. HISTORY OF PRESENT ILLNESS: The patient is a 48-year-old male who has a history of end-stage renal disease secondary to severe bilateral nephrolithiasis, underwent left nephrectomy in the past and was diagnosed with aortic valve endocarditis and was transferred in 02/2018 to [facility] for right nephrectomy followed by aortic valve replacement; however, the patient did not undergo either and was given future appointment for that. The patient presented with right lower quadrant pain and was diagnosed with probable appendicoliths and is being planned to undergo appendectomy. The patient was evaluated by Dr. Gonzalez, a surgeon. MEDICATIONS: Current medications are IV Cipro 200 mg every 12 hours, Dilaudid 0.5 mg every 4 hours p.r.n., IV Flagyl 500 mg intravenously every 8 hours, heparin 5000 units every 8 hours subcutaneously, Protonix 40 mg p.o. once a day, Xanax 0.5 mg every 12 hours. PAST MEDICAL HISTORY: Hepatitis C and the patient has been on hemodialysis for the past few years and recently was diagnosed with aortic valve endocarditis. PHYSICAL EXAMINATION: GENERAL: The patient is a middle-aged male who is uncomfortable because of his right lower quadrant pain. VITAL SIGNS: Blood pressure 93/44, heart rate 84, temperature 98.1, respirations 20. HEENT: Pale conjunctivae. CHEST: Clear. HEART: S1 and S2 are regular, grade 2/6 ejection systolic murmur over the left sternal border. ABDOMEN: Exquisite right lower quadrant tenderness. EXTREMITIES: No edema. LABORATORY DATA: Today's hemoglobin and hematocrit 10.7 and 32.1, white count and platelet count are within normal limit. SMA-7: Sodium 135, potassium 4.3, chloride 89, CO2 of 26, glucose 103, BUN 62, and creatinine 11.1. INR is 1.3. Abdomen and pelvic CT scan revealed left nephrectomy, large staghorn calculi, indwelling ureteral stent with compression of the upper pole calyces. Severe residual pole hydronephrosis likely secondary to large staghorn calculus. Probable appendicoliths. The appendix appears within normal limits of caliber, minimal adjacent inflammatory changes. Acute appendicitis is considered less likely, however, not excluded. EKG revealed normal sinus rhythm with moderate voltage criteria for LVH. The most recent echo in 02/2018 revealed moderate-sized prolapse and aortic valvular vegetation with severe aortic insufficiency and moderate mitral insufficiency. Cardiac catheterization performed in 02/2018 revealed nonobstructive coronary artery disease with normal ejection fraction. ASSESSMENT: 1. Appendicoliths, rule out appendicitis. 2. Acute abdomen. 3. Right staghorn calculus. 4. End-stage renal disease, on hemodialysis. 5. Treated recently for aortic valve endocarditis. RECOMMENDATIONS: The patient can undergo exploratory laparotomy because of the urgent nature of it with close preoperative blood pressure monitoring of preoperative hypotension and observe the patient postoperatively in intensive care unit. Mc Miner MD
[2018-04-14] MEDS: HYDROmorphone 1 mg/ml ISec IVP PRN ×5 (01:55→21:06)
[2018-04-14 05:52] LABS: BASO % 0.4 % (0.0-2.0); EOS % 0.2 % (0.0-4.0); HEMOGLOBIN 10.9 g/dL (12.0-18.0); LYMPH % 13.7 % (20.0-40.0); MEAN CELL VOLUME 94.7 fL (80.0-94.0); MEAN CORPUSCULAR HEMOGLOBIN 31.4 pg (27.0-31.0); MEAN CORPUSCULAR HGB CONC 33.2 g/dL (33.0-37.0); MONO # 0.5 K/uL (0.0-0.8); NEUT # 6.1 K/uL (1.8-7.0); NEUT % 79.7 % (50.0-75.0); RBC 3.47 Mil/uL (4.40-5.90); RED CELL DISTRIBUTION WIDTH 15.6 % (11.5-14.5); WHITE BLOOD COUNT 7.6 K/uL (4.8-10.8)
[2018-04-14] MEDS: metroNIDAZOLE IV 500 mg/100 ml 500 MG/100 ML BAG IVPB SCH ×3 (06:00→20:00)
--- NOTE | 2018-04-14 06:31 | HP ---
CHIEF COMPLAINT: Right lower quadrant abdominal pain. HISTORY OF PRESENT ILLNESS: This is a 48-year-old male, well known to me with history of end-stage renal disease, on hemodialysis as a result of bilateral extensive nephrolithiasis, constipation, hepatitis C. The patient is noncompliant with his diet, medications. He is on hemodialysis three times a week, and in the emergency room, he came in because of one day onset of right lower quadrant abdominal pain. Pain woke him up from sleep. Pain is described as sharp, persistent pain, getting worse, and it started from epigastric area and it went down to right lower quadrant associated with nausea, vomiting. Along with that he has been feeling sweating, generalized weakness. He denies any dysuria, hematuria or pyuria. He has been compliant with his dialysis. He denies any history of nausea, vomiting or diarrhea. He denies any history of trauma, fall, loss of consciousness. He denies any history of seizure-like activity. He denies any tingling, numbness, paresthesia. He feels anxious at times. He gets depressed sometime. The patient denies any sneezing, itchy eyes, or itchy nose. He denies any skin rash, bruises. He denies any history of loss of consciousness. PAST MEDICAL HISTORY: Nephrolithiasis, end-stage renal disease, hepatitis C. SOCIAL HISTORY: He is nonsmoker. He claims to be non-alcohol user. CURRENT MEDICATIONS: Xanax, Percocet, Renvela, Flomax, Protonix, Tylenol, Reglan, Feosol, Depakote. PHYSICAL EXAMINATION: GENERAL: A middle-aged male, postop. He is not in any acute cardiopulmonary distress. VITAL SIGNS: Blood pressure 122/47, pulse 90, respiratory rate 20, temperature 97.2. SKIN: Has extensive tattoos. No bruises. No purpura. No petechiae. No ecchymosis. HEENT: Atraumatic. Normocephalic. Negative pallor. Negative jaundice. Extraocular movements are intact. NECK: Supple. No JVD. No lymph node. No thyromegaly. Normal range of movements. CHEST WALL: Bilateral symmetrical expansion. No tenderness, no deformity. No gynecomastia. LUNGS: Bilaterally clear. No rales. No rhonchi. CARDIOVASCULAR SYSTEM: PMI in the fifth intercostal space. S1, S2 regular. No heave. No thrill. ABDOMEN: Soft, nontender. Bowel sounds are positive. RECTAL: No masses, no bleeding. EXTREMITIES: No clubbing, cyanosis, or edema. CENTRAL NERVOUS SYSTEM: Awake, alert, and oriented x3. Cranial nerves II through XII are normal. Power 5/5 x4. Plantars are downgoing. ASSESSMENT: 1. Rule out acute appendicitis. 2. Nephrolithiasis with end-stage kidney disease. 3. End-stage kidney disease. 4. Anxiety and depression. PLAN: Admit, postop, monitor the patient in ICU. Monitor the patient's condition. Mikel Marc MD
[2018-04-14 06:34] LABS: ALB/GLOB RATIO 1.1 (1.0-2.1); ALBUMIN 3.7 g/dL (3.5-5.0); CALCIUM 9.5 mg/dl (8.6-10.4)
[2018-04-14] MEDS: HYDROmorphone 0.5 mg/0.5 ml ISec IVP PRN ×3 (08:41→22:44)
[2018-04-14] MEDS: POLYETHYLENE GLYCOL 3350 17 GM/Dose PACKET PO SCH ×2 (09:40→21:05)
[2018-04-14] MEDS: Pantoprazole 40 mg EC Tab PO SCH (09:40)
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
--- NOTE | 2018-04-14 10:22 | CP.PCM.PN ---
Subjective - Date & Time of Evaluation Date of Evaluation: 04/14/18 Time of Evaluation: 10:19 - Subjective Subjective: Surgery: Dr. Gonzalez Pt seen and examined, no acute overnight events. States he feels slightly better but admits to post-op pain around incision. Denies nausea/vomiting, fevers/chills overnight. Denies flatus or BM. Objective - Vital Signs/Intake and Output Vital Signs (last 24 hours): Temp Pulse Resp BP Pulse Ox 97.8 F 98 H 20 126/45 L 91 L 04/14/18 09:35 04/14/18 09:35 04/14/18 09:35 04/14/18 09:50 04/14/18 09:35 Intake and Output: 04/14/18 04/14/18 06:59 18:59 Intake Total 400 0 Output Total 0 0 Balance 400 0 - Medications Medications: Current Medications Acetaminophen (Tylenol 325mg Tab) 650 mg PO Q6H PRN PRN Reason: Pain, Mild (1-3) Alprazolam (Xanax) 0.5 mg PO Q12H PRN PRN Reason: Anxiety Heparin Sodium (Porcine) (Heparin) 5,000 units SC Q8 [facility] Last Admin: 04/12/18 22:12 Dose: Not Given Hydromorphone HCl (Dilaudid) 0.5 mg IVP Q2H PRN PRN Reason: Pain, severe (8-10) Last Admin: 04/14/18 08:41 Dose: 0.5 mg Hydromorphone HCl (Dilaudid) 1 mg IVP Q4H PRN PRN Reason: Pain, severe (8-10) Last Admin: 04/14/18 05:58 Dose: 1 mg Ciprofloxacin (Cipro 200mg/100ml D5w) 100 mls @ 67 mls/hr IVPB Q12H [facility]; Protocol Last Admin: 04/13/18 22:00 Dose: 67 mls/hr Metronidazole (Flagyl) 500 mg in 100 mls @ 100 mls/hr IVPB Q8H [facility]; Protocol Last Admin: 04/14/18 06:00 Dose: 100 mls/hr Oxycodone/Acetaminophen (Percocet 5/325 Mg Tab) 1 tab PO Q4H PRN PRN Reason: Pain, moderate (4-7) Stop: 04/15/18 23:34 Pantoprazole Sodium (Protonix Ec Tab) 40 mg PO DAILY [facility] Last Admin: 04/13/18 11:00 Dose: Not Given Polyethylene Glycol (Miralax) 17 gm PO BID [facility] Last Admin: 04/13/18 17:13 Dose: Not Given Sevelamer Carbonate (Renvela) 1,600 mg PO TIDCC [facility] Last Admin: 04/13/18 17:12 Dose: Not Given Tamsulosin HCl (Flomax) 0.4 mg PO DAILY [facility] Last Admin: 04/13/18 11:00 Dose: Not Given - Labs Labs: 04/14/18 05:48 04/14/18 05:48 PT 14.1 SECONDS (9.7-12.2) H 04/13/18 07:40 INR 1.3 04/13/18 07:40 APTT 37 SECONDS (21-34) H 04/13/18 07:40 - Constitutional Appears: Well, No Acute Distress - Head Exam Head Exam: ATRAUMATIC, NORMOCEPHALIC - Eye Exam Eye Exam: Normal appearance - ENT Exam ENT Exam: Mucous Membranes Moist - Respiratory Exam Respiratory Exam: NORMAL BREATHING PATTERN - Cardiovascular Exam Cardiovascular Exam: RRR - GI/Abdominal Exam GI & Abdominal Exam: Guarding (voluntary ), Soft, Tenderness (around midline incision). absent: Distended, Rebound - Neurological Exam Neurological Exam: Alert, Awake, Oriented x3 - Skin Skin Exam: Dry, Warm Assessment and Plan - Assessment and Plan (Free Text) Assessment: 48M s/p Ex-lap with ileocecectomy for gangrenous segment of cecum; POD#1 Plan: - start CLD - will advance diet slowly as tolerated - f/u path - encourage out of bed to chair/ambulation - d/w Dr. Lisa Carr
[2018-04-14 13:46] LABS: BASO % 0.5 % (0.0-2.0); EOS % 0.1 % (0.0-4.0); HEMOGLOBIN 11.8 g/dL (12.0-18.0); LYMPH # 0.8 K/uL (1.0-4.3); LYMPH % 8.2 % (20.0-40.0); MEAN CELL VOLUME 94.2 fL (80.0-94.0); MEAN CORPUSCULAR HEMOGLOBIN 31.9 pg (27.0-31.0); MEAN CORPUSCULAR HGB CONC 33.9 g/dL (33.0-37.0); MEAN PLATELET VOLUME 8.5 fL (7.2-11.7); MONO # 0.4 K/uL (0.0-0.8); MONO % 4.6 % (0.0-10.0); NEUT # 8.2 K/uL (1.8-7.0); NEUT % 86.6 % (50.0-75.0); PLATELET COUNT 196 K/uL (130-400); RBC 3.69 Mil/uL (4.40-5.90); RED CELL DISTRIBUTION WIDTH 15.7 % (11.5-14.5); WHITE BLOOD COUNT 9.4 K/uL (4.8-10.8)
[2018-04-14] MEDS: Ciprofloxacin 200mg/100ml D5W 100 ML IVPB SCH ×2 (13:52→21:28)
[2018-04-14 14:04] LABS: CALCIUM 9.9 mg/dl (8.6-10.4)
[2018-04-14 14:31] LABS: BANDS 1 % (0-2); LYMPHOCYTE 5 % (20-40); MONOCYTE 3 % (0-10); NEUTROPHIL 91 % (50-75); PLATELET ESTIMATE NORMAL (NORMAL); TOTAL CELLS COUNTED 100
[2018-04-14 14:32] LABS: ANISOCYTOSIS SLIGHT; HYPOCHROMIC SLIGHT; LARGE PLATELETS PRESENT; POIKILOCYTOSIS SLIGHT; POLYCHROMIC SLIGHT
[2018-04-14 14:33] LABS: OVALOCYTES SLIGHT
--- NOTE | 2018-04-14 19:12 | PN ---
DATE: 04/14/2018 SUBJECTIVE: The patient underwent open exploratory laparotomy with ileocecectomy. The patient was found to have a gangrenous segment of the cecal portion. No reported ventricular arrhythmia and no reported hypotension. PHYSICAL EXAMINATION: VITAL SIGNS: Blood pressure 139/44, heart rate 92, temperature 97.8, respirations 17. HEENT: Pale conjunctivae. CHEST: Clear. HEART: S1 and S2 regular. EXTREMITIES: No edema. LABORATORY STUDIES: Hemoglobin and hematocrit are 10.9 and 32.8. White count and platelet count are within normal limits. Today's SMA-7 prior to hemodialysis: Sodium 133, potassium 6.4, chloride 92, CO2 19, glucose 100, BUN 72, and creatinine 16.4. ASSESSMENT: 1. Status post ileocecectomy for gangrenous changes. 2. End-stage renal disease, on hemodialysis. 3. History of bacterial endocarditis with residual aortic insufficiency. RECOMMENDATIONS: Continue current IV Flagyl and IV ciprofloxacin. The patient is currently undergoing hemodialysis. Obtain BNP post hemodialysis and obtain 12-lead EKG. Mc Miner MD
[2018-04-15] MEDS: HYDROmorphone 1 mg/ml ISec IVP PRN ×3 (01:25→16:28)
[2018-04-15] MEDS: HYDROmorphone 0.5 mg/0.5 ml ISec IVP PRN ×2 (02:21→04:29)
[2018-04-15] MEDS: metroNIDAZOLE IV 500 mg/100 ml 500 MG/100 ML BAG IVPB SCH ×2 (04:30→13:30)
[2018-04-15] MEDS: Ciprofloxacin 200mg/100ml D5W 100 ML IVPB SCH (08:14)
[2018-04-15] MEDS ORDERED: Oxycodone/Acetaminophen 5/325 mg Tab PO PRN (09:04)
--- NOTE | 2018-04-15 09:07 | CP.PCM.PN ---
Subjective - Date & Time of Evaluation Date of Evaluation: 04/15/18 Time of Evaluation: 09:04 - Subjective Subjective: Surgery: Dr. Gonzalez Pt seen and examined. No acute overnight events. States he feels ok but continues to have post-op pain around the incision. Pt tolerating clears however deneis flatus/BM. Denies fevers/chills. Objective - Vital Signs/Intake and Output Vital Signs (last 24 hours): Temp Pulse Resp BP Pulse Ox 98.1 F 90 18 118/35 L 94 L 04/15/18 08:26 04/15/18 08:26 04/15/18 08:26 04/15/18 08:26 04/15/18 08:26 Intake and Output: 04/15/18 04/15/18 06:59 18:59 Intake Total 100 Balance 100 - Medications Medications: Current Medications Acetaminophen (Tylenol 325mg Tab) 650 mg PO Q6H PRN PRN Reason: Pain, Mild (1-3) Alprazolam (Xanax) 0.5 mg PO Q12H PRN PRN Reason: Anxiety Heparin Sodium (Porcine) (Heparin) 5,000 units SC Q8 [facility] Last Admin: 04/12/18 22:12 Dose: Not Given Hydromorphone HCl (Dilaudid) 1 mg IVP Q3 PRN PRN Reason: Pain, severe (8-10) Last Admin: 04/15/18 06:16 Dose: 1 mg Ciprofloxacin (Cipro 200mg/100ml D5w) 100 mls @ 67 mls/hr IVPB Q12H [facility]; Protocol Last Admin: 04/15/18 08:14 Dose: 67 mls/hr Metronidazole (Flagyl) 500 mg in 100 mls @ 100 mls/hr IVPB Q8H [facility]; Protocol Last Admin: 04/15/18 04:30 Dose: 100 mls/hr Oxycodone/Acetaminophen (Percocet 5/325 Mg Tab) 1 tab PO Q6H PRN PRN Reason: Pain, moderate (4-7) Stop: 04/18/18 09:04 Pantoprazole Sodium (Protonix Ec Tab) 40 mg PO DAILY [facility] Last Admin: 04/14/18 09:40 Dose: Not Given Polyethylene Glycol (Miralax) 17 gm PO BID [facility] Last Admin: 04/14/18 21:05 Dose: 17 gm Sevelamer Carbonate (Renvela) 1,600 mg PO TIDCC [facility] Last Admin: 04/15/18 08:13 Dose: 1,600 mg Tamsulosin HCl (Flomax) 0.4 mg PO DAILY [facility] Last Admin: 04/14/18 09:40 Dose: Not Given - Labs Labs: 04/14/18 13:43 04/14/18 13:43 PT 14.1 SECONDS (9.7-12.2) H 04/13/18 07:40 INR 1.3 04/13/18 07:40 APTT 37 SECONDS (21-34) H 04/13/18 07:40 - Constitutional Appears: Well, No Acute Distress - Head Exam Head Exam: ATRAUMATIC, NORMOCEPHALIC - ENT Exam ENT Exam: Mucous Membranes Moist - Respiratory Exam Respiratory Exam: NORMAL BREATHING PATTERN - GI/Abdominal Exam GI & Abdominal Exam: Soft, Tenderness (around midline incision with napoleon, C/D/I ). absent: Distended, Rebound - Neurological Exam Neurological Exam: Alert, Awake, Oriented x3 - Skin Skin Exam: Dry, Warm Assessment and Plan - Assessment and Plan (Free Text) Assessment: 48M s/p Ex-Lap with ileocecectomy for gangrenous segment of cecum; POD#2 Plan: - cont CLD; will advance slowly as tolerated - monitor bowel function - encourage ambulation - transition to PO pain meds - ok to downgrade from ICU from surgical standpoint - d/w Dr. Lisa Carr
[2018-04-15] MEDS: POLYETHYLENE GLYCOL 3350 17 GM/Dose PACKET PO SCH ×2 (11:18→17:11)
[2018-04-15] MEDS: Pantoprazole 40 mg EC Tab PO SCH (11:18)
[2018-04-15] MEDS ORDERED: Benzocaine/Menthol (Cepacol) Lozenge MT PRN (16:37)
--- NOTE | 2018-04-15 17:06 | PN ---
DATE: 04/15/2018 SUBJECTIVE: The patient denies chest pain. He is currently undergoing physical therapy and now is able to ambulate with the help of a physical therapy cane. PHYSICAL EXAMINATION: VITAL SIGNS: Blood pressure , heart rate 90, temperature 98.1, respirations 18. HEENT: Normocephalic. CHEST: Clear, heart sounds regular, grade 3/6 diastolic murmur over the left sternal border. ABDOMEN: Absent bowel sounds. EXTREMITIES: No edema. IMAGING STUDIES: Yesterday's EKG revealed sinus rhythm with left ventricular hypertrophy. ASSESSMENT: 1. Status post ileocecectomy. 2. End-stage renal disease, on hemodialysis. 3. History of bacterial endocarditis with residual aortic insufficiency. 4. History of hepatitis C. RECOMMENDATIONS: Continue current IV Cipro and IV Flagyl. Continue Protonix 40 mg p.o. once a day. The patient can be transferred to telemetry from the cardiac point of view. Mc Miner MD
--- NOTE | 2018-04-15 21:38 | CP.PCM.PN ---
Subjective - Date & Time of Evaluation Date of Evaluation: 04/14/18 Time of Evaluation: 07:00 - Subjective Subjective: pod#2, pain in abdomen Objective - Vital Signs/Intake and Output Vital Signs (last 24 hours): Temp Pulse Resp BP Pulse Ox 98.1 F 91 H 14 100/48 L 93 L 04/15/18 08:26 04/15/18 14:56 04/15/18 14:56 04/15/18 14:56 04/15/18 14:56 Intake and Output: 04/15/18 04/16/18 18:59 06:59 Intake Total 520 Output Total 0 Balance 520 - Medications Medications: Current Medications Acetaminophen (Tylenol 325mg Tab) 650 mg PO Q6H PRN PRN Reason: Pain, Mild (1-3) Alprazolam (Xanax) 0.5 mg PO Q12H PRN PRN Reason: Anxiety Benzocaine/Menthol (Cepacol Sore Throat) 1 maggie MT Q4H PRN PRN Reason: Sore Throat Last Admin: 04/15/18 17:16 Dose: 1 maggie Heparin Sodium (Porcine) (Heparin) 5,000 units SC Q8 [facility] Last Admin: 04/15/18 14:12 Dose: 5,000 units Hydromorphone HCl (Dilaudid) 1 mg IVP Q3 PRN PRN Reason: Pain, severe (8-10) Last Admin: 04/15/18 16:28 Dose: 1 mg Oxycodone/Acetaminophen (Percocet 5/325 Mg Tab) 1 tab PO Q6H PRN PRN Reason: Pain, moderate (4-7) Stop: 04/18/18 09:04 Pantoprazole Sodium (Protonix Ec Tab) 40 mg PO DAILY [facility] Last Admin: 04/15/18 11:18 Dose: 40 mg Polyethylene Glycol (Miralax) 17 gm PO BID [facility] Last Admin: 04/15/18 17:11 Dose: 17 gm Sevelamer Carbonate (Renvela) 1,600 mg PO TIDCC [facility] [place] Last Admin: 04/15/18 17:11 Dose: 1,600 mg Tamsulosin HCl (Flomax) 0.4 mg PO DAILY [facility] Last Admin: 04/15/18 11:19 Dose: 0.4 mg - Labs Labs: 04/14/18 13:43 04/14/18 13:43 PT 14.1 SECONDS (9.7-12.2) H 04/13/18 07:40 INR 1.3 04/13/18 07:40 APTT 37 SECONDS (21-34) H 04/13/18 07:40 - Constitutional Appears: Non-toxic, Chronically Ill - Head Exam Head Exam: ATRAUMATIC, NORMAL INSPECTION, NORMOCEPHALIC - Eye Exam Eye Exam: EOMI, Normal appearance, PERRL Pupil Exam: NORMAL ACCOMODATION - Neck Exam Neck Exam: Full ROM, Normal Inspection - Respiratory Exam Respiratory Exam: Clear to Ausculation Bilateral, NORMAL BREATHING PATTERN - Cardiovascular Exam Cardiovascular Exam: REGULAR RHYTHM, +S1, +S2 - GI/Abdominal Exam GI & Abdominal Exam: Tenderness - Rectal Exam Rectal Exam: NORMAL INSPECTION - Extremities Exam Extremities Exam: Normal Capillary Refill - Neurological Exam Neurological Exam: Alert, Awake, CN II-XII Intact, Normal Gait, Oriented x3 Neuro motor strength exam: Left Upper Extremity: 5, Right Upper Extremity: 5, Left Lower Extremity: 5, Right Lower Extremity: 5 - Psychiatric Exam Psychiatric exam: Anxious, Depressed, Flat Affect - Skin Skin Exam: Dry Assessment and Plan (1) Right lower quadrant pain Status: Acute (2) ESRD (end stage renal disease) Status: Chronic (3) Hypertension Status: Chronic (4) Nephrolithiasis Status: Chronic
--- NOTE | 2018-04-15 21:39 | CP.PCM.PN ---
Subjective - Date & Time of Evaluation Date of Evaluation: 04/15/18 Time of Evaluation: 21:38 - Subjective Subjective: dictated Objective - Vital Signs/Intake and Output Vital Signs (last 24 hours): Temp Pulse Resp BP Pulse Ox 98.1 F 91 H 14 100/48 L 93 L 04/15/18 08:26 04/15/18 14:56 04/15/18 14:56 04/15/18 14:56 04/15/18 14:56 Intake and Output: 04/15/18 04/16/18 18:59 06:59 Intake Total 520 Output Total 0 Balance 520 - Medications Medications: Current Medications Acetaminophen (Tylenol 325mg Tab) 650 mg PO Q6H PRN PRN Reason: Pain, Mild (1-3) Alprazolam (Xanax) 0.5 mg PO Q12H PRN PRN Reason: Anxiety Benzocaine/Menthol (Cepacol Sore Throat) 1 maggie MT Q4H PRN PRN Reason: Sore Throat Last Admin: 04/15/18 17:16 Dose: 1 maggie Heparin Sodium (Porcine) (Heparin) 5,000 units SC Q8 [facility] Last Admin: 04/15/18 14:12 Dose: 5,000 units Hydromorphone HCl (Dilaudid) 1 mg IVP Q3 PRN PRN Reason: Pain, severe (8-10) Last Admin: 04/15/18 16:28 Dose: 1 mg Oxycodone/Acetaminophen (Percocet 5/325 Mg Tab) 1 tab PO Q6H PRN PRN Reason: Pain, moderate (4-7) Stop: 04/18/18 09:04 Pantoprazole Sodium (Protonix Ec Tab) 40 mg PO DAILY [facility] Last Admin: 04/15/18 11:18 Dose: 40 mg Polyethylene Glycol (Miralax) 17 gm PO BID [facility] Last Admin: 04/15/18 17:11 Dose: 17 gm Sevelamer Carbonate (Renvela) 1,600 mg PO TIDCC [facility] Last Admin: 04/15/18 17:11 Dose: 1,600 mg Tamsulosin HCl (Flomax) 0.4 mg PO DAILY [facility] Last Admin: 04/15/18 11:19 Dose: 0.4 mg - Labs Labs: 04/14/18 13:43 11/03/18 13:43 PT 14.1 SECONDS (9.7-12.2) H 04/13/18 07:40 INR 1.3 04/13/18 07:40 APTT 37 SECONDS (21-34) H 04/13/18 07:40 Assessment and Plan (1) Right lower quadrant pain Status: Acute (2) ESRD (end stage renal disease) Status: Chronic (3) Hypertension Status: Chronic (4) Nephrolithiasis Status: Chronic
[2018-04-16] MEDS: HYDROmorphone 1 mg/ml ISec IVP PRN ×2 (00:10→07:31)
--- NOTE | 2018-04-16 01:45 | PN ---
DATE: 04/15/2018 SUBJECTIVE: Zac is postop. He is afebrile. He is . He denies any nausea or vomiting. He is on liquid diet. PHYSICAL EXAMINATION: VITAL SIGNS: BP 100/48, pulse 91, respiratory rate 14. LUNGS: Bilaterally clear. CARDIOVASCULAR SYSTEM: S1 and S2 are regular. ABDOMEN: Soft. ASSESSMENT: 1. Acute appendicitis. 2. Chronic kidney disease, on hemodialysis, 3. Nephrolithiasis. 4. Anxiety disorder. PLAN: Monitor the patient. Mikel Marc MD
[2018-04-16 08:24] LABS: HEMOGLOBIN 11.1 g/dL (12.0-18.0); MEAN CELL VOLUME 94.5 fL (80.0-94.0); MEAN CORPUSCULAR HEMOGLOBIN 31.3 pg (27.0-31.0); MEAN CORPUSCULAR HGB CONC 33.1 g/dL (33.0-37.0); MEAN PLATELET VOLUME 7.9 fL (7.2-11.7); RBC 3.54 Mil/uL (4.40-5.90); WHITE BLOOD COUNT 7.1 K/uL (4.8-10.8)
[2018-04-16 08:56] LABS: CALCIUM 9.5 mg/dl (8.6-10.4)
[2018-04-16] MEDS: Pantoprazole 40 mg EC Tab PO SCH (10:30)
[2018-04-16] MEDS: POLYETHYLENE GLYCOL 3350 17 GM/Dose PACKET PO SCH ×2 (10:32→17:21)
--- NOTE | 2018-04-16 11:26 | CP.PCM.PN ---
Subjective - Date & Time of Evaluation Date of Evaluation: 04/16/18 Time of Evaluation: 11:23 - Subjective Subjective: Events noted s/p partial colectomy POD# 3 s/p dialysis 11 alert now, feels better K still elevated- will need repeat dialysis today on surgical post op care Objective - Vital Signs/Intake and Output Vital Signs (last 24 hours): Temp Pulse Resp BP Pulse Ox 98.8 F 91 H 14 117/38 L 93 L 04/16/18 08:00 04/16/18 08:00 04/16/18 08:00 04/16/18 08:00 04/15/18 20:00 Intake and Output: 04/16/18 04/16/18 06:59 18:59 Intake Total 240 330 Balance 240 330 - Medications Medications: Current Medications Acetaminophen (Tylenol 325mg Tab) 650 mg PO Q6H PRN PRN Reason: Pain, Mild (1-3) Alprazolam (Xanax) 0.5 mg PO Q12H PRN PRN Reason: Anxiety Benzocaine/Menthol (Cepacol Sore Throat) 1 maggie MT Q4H PRN PRN Reason: Sore Throat Last Admin: 04/15/18 17:16 Dose: 1 maggie Heparin Sodium (Porcine) (Heparin) 5,000 units SC Q8 ON LICENSE OF [facility] Last Admin: 04/16/18 05:45 Dose: Not Given Hydromorphone HCl (Dilaudid) 0.5 mg IVP Q4 PRN PRN Reason: Pain, severe (8-10) Oxycodone/Acetaminophen (Percocet 5/325 Mg Tab) 1 tab PO Q6H PRN PRN Reason: Pain, moderate (4-7) Stop: 04/18/18 09:04 Last Admin: 04/16/18 10:31 Dose: 1 tab Pantoprazole Sodium (Protonix Ec Tab) 40 mg PO DAILY [facility] Last Admin: 04/16/18 10:30 Dose: 40 mg Polyethylene Glycol (Miralax) 17 gm PO BID ON [facility] OF [facility] Last Admin: 04/16/18 10:32 Dose: Not Given Sevelamer Carbonate (Renvela) 1,600 mg PO TIDCC ON [facility] OF [facility] Last Admin: 04/16/18 07:59 Dose: 1,600 mg Tamsulosin HCl (Flomax) 0.4 mg PO DAILY [facility] Last Admin: 04/16/18 10:30 Dose: 0.4 mg - Labs Labs: 04/16/18 08:19 04/16/18 08:19 PT 14.1 SECONDS (9.7-12.2) H 04/13/18 07:40 INR 1.3 04/13/18 07:40 APTT 37 SECONDS (21-34) H 04/13/18 07:40 - Constitutional Appears: No Acute Distress, Chronically Ill - Head Exam Head Exam: ATRAUMATIC, NORMAL INSPECTION - Eye Exam Eye Exam: EOMI, Normal appearance - Neck Exam Neck Exam: Normal Inspection. absent: Tenderness - Respiratory Exam Respiratory Exam: Clear to Ausculation Bilateral, NORMAL BREATHING PATTERN - Cardiovascular Exam Cardiovascular Exam: REGULAR RHYTHM, +S1 - GI/Abdominal Exam GI & Abdominal Exam: Soft, Tenderness - Extremities Exam Extremities Exam: Normal Inspection. absent: Tenderness - Neurological Exam Neurological Exam: Awake, CN II-XII Intact - Skin Skin Exam: Dry, Warm Assessment and Plan (1) Hyperkalemia Status: Acute (2) End stage renal disease Status: Acute (3) Hyperphosphatemia Status: Acute (4) S/p nephrectomy Status: Acute (5) SBE (subacute bacterial endocarditis) Status: Acute (6) Xanthogranulomatous pyelonephritis Status: Acute (7) Nephrolithiasis Status: Chronic - Assessment and Plan (Free Text) Plan: Repeat dialysis today for hyperkalemia Continue binders for high phos- add ca acetate surgical wound care
[2018-04-16] MEDS ORDERED: HYDROmorphone 1 mg/ml ISec IVP SCH (12:00)
[2018-04-16] MEDS: HYDROmorphone 0.5 mg/0.5 ml ISec IVP PRN ×2 (12:27→17:35)
--- NOTE | 2018-04-16 14:21 | CP.PCM.PN ---
Subjective - Date & Time of Evaluation Date of Evaluation: 04/16/18 Time of Evaluation: 07:00 - Subjective Subjective: GENERAL SURGERY PROGRESS NOTE FOR DR. STUART Patient seen and examined at bedside. He is OOB to chair. He denies flatus or BM after surgery. Complains of post op pain. Tolerating CLD. Did PT yesterday. Objective - Vital Signs/Intake and Output Vital Signs (last 24 hours): Temp Pulse Resp BP Pulse Ox 98.8 F 91 H 14 117/38 L 93 L 04/16/18 08:00 04/16/18 08:00 04/16/18 08:00 04/16/18 08:00 04/15/18 20:00 Intake and Output: 04/16/18 04/16/18 06:59 18:59 Intake Total 240 330 Balance 240 330 - Medications Medications: Current Medications Acetaminophen (Tylenol 325mg Tab) 650 mg PO Q6H PRN PRN Reason: Pain, Mild (1-3) Alprazolam (Xanax) 0.5 mg PO Q12H PRN PRN Reason: Anxiety Benzocaine/Menthol (Cepacol Sore Throat) 1 maggie MT Q4H PRN PRN Reason: Sore Throat Last Admin: 04/15/18 17:16 Dose: 1 maggie Calcium Acetate (Phoslo) 667 mg PO TID [facility] Heparin Sodium (Porcine) (Heparin) 5,000 units SC Q8 [facility] Last Admin: 04/16/18 05:45 Dose: Not Given Hydromorphone HCl (Dilaudid) 0.5 mg IVP Q4 PRN PRN Reason: Pain, severe (8-10) Last Admin: 04/16/18 12:27 Dose: 0.5 mg Ondansetron HCl (Zofran Inj) 4 mg IVP Q4 PRN PRN Reason: Nausea/Vomiting Oxycodone/Acetaminophen (Percocet 5/325 Mg Tab) 1 tab PO Q6H PRN PRN Reason: Pain, moderate (4-7) Stop: 04/18/18 09:04 Last Admin: 04/16/18 10:31 Dose: 1 tab Pantoprazole Sodium (Protonix Ec Tab) 40 mg PO DAILY [facility] Last Admin: 04/16/18 10:30 Dose: 40 mg Polyethylene Glycol (Miralax) 17 gm PO BID [facility] Last Admin: 04/16/18 10:32 Dose: Not Given Sevelamer Carbonate (Renvela) 1,600 mg PO TIDCC [facility] Last Admin: 04/16/18 12:24 Dose: 1,600 mg Tamsulosin HCl (Flomax) 0.4 mg PO DAILY [facility] Last Admin: 04/16/18 10:30 Dose: 0.4 mg - Labs Labs: 04/16/18 08:19 04/16/18 08:19 PT 14.1 SECONDS (9.7-12.2) H 04/13/18 07:40 INR 1.3 04/13/18 07:40 APTT 37 SECONDS (21-34) H 04/13/18 07:40 - Constitutional Appears: Non-toxic, No Acute Distress - Head Exam Head Exam: ATRAUMATIC, NORMAL INSPECTION - Eye Exam Eye Exam: EOMI, Normal appearance - Respiratory Exam Respiratory Exam: NORMAL BREATHING PATTERN. absent: Respiratory Distress - Cardiovascular Exam Cardiovascular Exam: +S1, +S2 - GI/Abdominal Exam GI & Abdominal Exam: Soft, Tenderness (alejandro incisional tenderness). absent: Distended, Firm, Guarding, Rigid, Rebound Additional comments: Dressing c/d/i - Neurological Exam Neurological Exam: Alert, Awake - Skin Skin Exam: Normal Color, Warm Assessment and Plan - Assessment and Plan (Free Text) Assessment: 48M s/p Ex-Lap with ileocecectomy for gangrenous segment of cecum; POD#3 Plan: - Advanced to full liquids - Monitor for bowel function - Encourage ambulation - transition to PO pain meds - d/w Dr. Lisa Barth PGY-4
[2018-04-16] MEDS ORDERED: Sodium Chloride 0.9% 500 ML IV SCH (16:00)
--- NOTE | 2018-04-16 21:32 | PN ---
DATE: 04/16/2018 SUBJECTIVE: The patient is still experiencing abdominal discomfort. No nausea or vomiting. No flatus or bowel movement. PHYSICAL EXAMINATION VITAL SIGNS: Blood pressure 117/38, heart rate 91, temperature 98.8, respirations 14. HEENT: Normocephalic. CHEST: Clear. HEART: Sounds regular. EXTREMITIES: No edema. LABORATORY DATA: Today's hemoglobin and hematocrit are 11.1 and 33.5. White count and platelet count are within normal limit. Today's SMA-7 this morning: Sodium 135, potassium 6.3, chloride 92, CO2 of 20, glucose 118, BUN 89, creatinine 15.1. ASSESSMENT: 1. Status post open exploratory laparotomy with ileocecectomy. 2. Aortic valve insufficiency. 3. End-stage renal disease, on hemodialysis. RECOMMENDATIONS: Continue current Dilaudid 0.5 mg intravenously every 4 hours p.r.n., subcutaneous heparin 5000 units every 8 hours, PhosLo one tablet t.i.d., Zofran 4 mg intravenously every 4 hours p.r.n. The patient will undergo hemodialysis soon this afternoon. Mc Miner MD
--- NOTE | 2018-04-16 23:52 | CP.PCM.PN ---
Subjective - Date & Time of Evaluation Date of Evaluation: 04/16/18 Time of Evaluation: 23:52 - Subjective Subjective: dictated Objective - Vital Signs/Intake and Output Vital Signs (last 24 hours): Temp Pulse Resp BP Pulse Ox 97.8 F 86 15 114/37 L 96 04/16/18 20:45 04/16/18 23:45 04/16/18 21:00 04/16/18 23:45 04/16/18 21:00 Intake and Output: 04/16/18 04/17/18 18:59 06:59 Intake Total 570 Balance 570 - Medications Medications: Current Medications Acetaminophen (Tylenol 325mg Tab) 650 mg PO Q6H PRN PRN Reason: Pain, Mild (1-3) Alprazolam (Xanax) 0.5 mg PO Q12H PRN PRN Reason: Anxiety Benzocaine/Menthol (Cepacol Sore Throat) 1 maggie MT Q4H PRN PRN Reason: Sore Throat Last Admin: 04/15/18 17:16 Dose: 1 maggie Calcium Acetate (Phoslo) 667 mg PO TID [facility] Last Admin: 04/16/18 17:21 Dose: 667 mg Heparin Sodium (Porcine) (Heparin) 5,000 units SC Q8 [facility] Last Admin: 04/16/18 22:26 Dose: Not Given Hydromorphone HCl (Dilaudid) 0.5 mg IVP Q4 PRN PRN Reason: Pain, severe (8-10) Last Admin: 04/16/18 17:35 Dose: 0.5 mg Ondansetron HCl (Zofran Inj) 4 mg IVP Q4 PRN PRN Reason: Nausea/Vomiting Oxycodone/Acetaminophen (Percocet 5/325 Mg Tab) 1 tab PO Q6H PRN PRN Reason: Pain, moderate (4-7) Stop: 04/18/18 09:04 Last Admin: 04/16/18 10:31 Dose: 1 tab Pantoprazole Sodium (Protonix Ec Tab) 40 mg PO DAILY [facility] Last Admin: 04/16/18 10:30 Dose: 40 mg Polyethylene Glycol (Miralax) 17 gm PO BID [facility] Last Admin: 04/16/18 17:21 Dose: 17 gm Sevelamer Carbonate (Renvela) 1,600 mg PO TIDCC [facility] Last Admin: 04/16/18 17:21 Dose: 1,600 mg Tamsulosin HCl (Flomax) 0.4 mg PO DAILY [facility] Last Admin: 04/16/18 10:30 Dose: 0.4 mg - Labs Labs: 04/16/18 08:19 04/16/18 08:19 PT 14.1 SECONDS (9.7-12.2) H 04/13/18 07:40 INR 1.3 04/13/18 07:40 APTT 37 SECONDS (21-34) H 04/13/18 07:40 Assessment and Plan (1) Right lower quadrant pain Status: Acute (2) ESRD (end stage renal disease) Status: Chronic (3) Hypertension Status: Chronic (4) Nephrolithiasis Status: Chronic
[2018-04-17] MEDS: HYDROmorphone 0.5 mg/0.5 ml ISec IVP PRN ×4 (00:02→20:00)
--- NOTE | 2018-04-17 05:04 | PN ---
DATE: 04/16/2018 SUBJECTIVE: He is post op. He has some abdominal pain. He denies any shortness of breath, fever, or chills. He denies any nausea, vomiting. He is tolerating liquid diet, seen by Surgery for hemodialysis today. PHYSICAL EXAMINATION: VITAL SIGNS: Blood pressure is 114/37, pulse 86, respiratory rate 20, temperature 97.6. LUNGS: Clear. CVS: S1 and S2 regular. ABDOMEN: Postop, bowel sounds are present. Left arm AV fistula. LABORATORY DATA: The patient's WBC is 7.1, hemoglobin 11.1, hematocrit 33.5, platelets 218. Sodium 135, potassium 6.3, chloride 92, bicarb 20, BUN 89, creatinine 13.1. ASSESSMENT: 1. Acute appendicitis, status post appendectomy. 2. Hypertension. 3. Anxiety and depression. 4. Chronic kidney disease, on hemodialysis. 5. Nephrolithiasis resulting in chronic kidney disease. PLAN: Monitor the patient. The patient is for regular medical floor transfer. Mikel Marc MD
[2018-04-17 06:13] LABS: BASO % 0.7 % (0.0-2.0); EOS # 0.1 K/uL (0.0-0.7); EOS % 1.5 % (0.0-4.0); HEMOGLOBIN 10.4 g/dL (12.0-18.0); LYMPH % 20.4 % (20.0-40.0); MEAN CELL VOLUME 94.6 fL (80.0-94.0); MEAN CORPUSCULAR HEMOGLOBIN 31.7 pg (27.0-31.0); MEAN CORPUSCULAR HGB CONC 33.5 g/dL (33.0-37.0); MEAN PLATELET VOLUME 8.2 fL (7.2-11.7); MONO # 0.4 K/uL (0.0-0.8); MONO % 9.7 % (0.0-10.0); NEUT # 3.2 K/uL (1.8-7.0); NEUT % 67.7 % (50.0-75.0); NRBC % 0.3 % (0.0-2.0); RBC 3.27 Mil/uL (4.40-5.90); RED CELL DISTRIBUTION WIDTH 15.3 % (11.5-14.5); WHITE BLOOD COUNT 4.7 K/uL (4.8-10.8)
[2018-04-17 06:53] LABS: ALBUMIN 3.6 g/dL (3.5-5.0); CALCIUM 9.5 mg/dl (8.6-10.4); TROPONIN I 0.125 ng/mL (0.00-0.120)
[2018-04-17] MEDS: Pantoprazole 40 mg EC Tab PO SCH (09:21)
[2018-04-17] MEDS: POLYETHYLENE GLYCOL 3350 17 GM/Dose PACKET PO SCH ×2 (09:25→17:27)
--- NOTE | 2018-04-17 10:57 | CP.PCM.PN ---
Subjective - Date & Time of Evaluation Date of Evaluation: 04/17/18 Time of Evaluation: 10:52 - Subjective Subjective: Surgery: Dr. Gonzalez Pt seen and examined. Overnight pt had an SEQUINS SPOOLER for afib after dialysis and was given Verapamil. This morning he is doing ok, admits to abdominal pain around the incision. States he's tolerating liquids but denies flatus/BM. Denies fevers/chills overnight. Denies chest pain or SOB. Objective - Vital Signs/Intake and Output Vital Signs (last 24 hours): Temp Pulse Resp BP Pulse Ox 98.1 F 104 H 16 111/40 L 94 L 04/17/18 04:00 04/17/18 06:00 04/17/18 06:00 04/17/18 05:53 04/17/18 06:00 Intake and Output: 04/17/18 04/17/18 06:59 18:59 Intake Total 200 Output Total 2800 Balance -2800 200 - Medications Medications: Current Medications Acetaminophen (Tylenol 325mg Tab) 650 mg PO Q6H PRN PRN Reason: Pain, Mild (1-3) Alprazolam (Xanax) 0.5 mg PO Q12H PRN PRN Reason: Anxiety Benzocaine/Menthol (Cepacol Sore Throat) 1 maggie MT Q4H PRN PRN Reason: Sore Throat Last Admin: 04/15/18 17:16 Dose: 1 maggie Calcium Acetate (Phoslo) 667 mg PO TID [facility] Last Admin: 04/17/18 09:21 Dose: 667 mg Heparin Sodium (Porcine) (Heparin) 5,000 units SC Q8 [facility] Last Admin: 04/17/18 05:28 Dose: Not Given Hydromorphone HCl (Dilaudid) 0.5 mg IVP Q4 PRN PRN Reason: Pain, severe (8-10) Last Admin: 04/17/18 00:02 Dose: 0.5 mg Ondansetron HCl (Zofran Inj) 4 mg IVP Q4 PRN PRN Reason: Nausea/Vomiting Last Admin: 04/17/18 10:10 Dose: 4 mg Oxycodone/Acetaminophen (Percocet 5/325 Mg Tab) 1 tab PO Q6H PRN PRN Reason: Pain, moderate (4-7) Stop: 04/18/18 09:04 Last Admin: 04/16/18 10:31 Dose: 1 tab Pantoprazole Sodium (Protonix Ec Tab) 40 mg PO DAILY [facility] Last Admin: 04/17/18 09:21 Dose: 40 mg Polyethylene Glycol (Miralax) 17 gm PO BID [facility] Last Admin: 04/17/18 09:25 Dose: Not Given Sevelamer Carbonate (Renvela) 1,600 mg PO TIDCC [facility] Last Admin: 04/17/18 09:21 Dose: 1,600 mg Tamsulosin HCl (Flomax) 0.4 mg PO DAILY [facility] Last Admin: 04/17/18 09:22 Dose: 0.4 mg - Labs Labs: 04/17/18 06:08 04/17/18 06:08 PT 14.1 SECONDS (9.7-12.2) H 04/13/18 07:40 INR 1.3 04/13/18 07:40 APTT 37 SECONDS (21-34) H 04/13/18 07:40 - Constitutional Appears: Well, No Acute Distress - Head Exam Head Exam: ATRAUMATIC, NORMOCEPHALIC - Eye Exam Eye Exam: Normal appearance - ENT Exam ENT Exam: Mucous Membranes Moist - Respiratory Exam Respiratory Exam: NORMAL BREATHING PATTERN - Cardiovascular Exam Cardiovascular Exam: RRR - GI/Abdominal Exam GI & Abdominal Exam: Soft, Tenderness (around midline incision; C/D/I ). absent: Distended, Rebound - Neurological Exam Neurological Exam: Alert, Awake - Skin Skin Exam: Dry, Warm Assessment and Plan - Assessment and Plan (Free Text) Assessment: 48M s/p ileocecectomy for necrotic segment of cecum; POD#4 Plan: - cont FLD until pt with bowel function - encourage ambulation - cardio recs - d/w Dr. Lisa Carr
[2018-04-17 14:03] LABS: CK-MB 1.23 ng/mL (0.0-3.38); TROPONIN I 0.14 ng/mL (0.00-0.120)
--- NOTE | 2018-04-17 15:36 | CARD ---
APPROVED REPORT Date of service: 04/14/2018 EKG Measurement Heart [id number] <Conclusion> Normal sinus rhythm Left ventricular hypertrophy Abnormal ECG
[2018-04-17] MEDS ORDERED: Iohexol 300 100 ML IJ ONE (17:39)
--- NOTE | 2018-04-17 18:53 | CT ---
Date of service: 04/17/2018 CTA chest PE protocol Indication: r/o PE Technique: Contiguous axial images were obtained through the chest with intravenous contrast enhancement. Sagittal and coronal reconstructions were generated and reviewed. This CT exam was performed using 1 or more of the following dose reduction techniques: Automated exposure control, adjustment of the MAA and/or kV according to patient size, and/or use of iterative reconstruction technique. IV contrast: 100 mL Omnipaque 300 IV Radiation dose (DLP): 604.37 MGy-cm. Comparison: Chest x-ray performed 04/12/18, CT abdomen pelvis without contrast performed 04/12/18, is CTA chest performed 02/18/18 Findings: Visualized portions of the inferior thyroid gland appear unremarkable. Collateral vasculature noted at the level of the neck. Cardiomegaly. Dense mitral annulus calcification. Dense coronary artery calcifications. Atherosclerotic calcifications of the thoracic aorta present. There is suboptimal opacification of the pulmonary arteries limiting evaluation for pulmonary embolus. Given this limitation, there are no visible intraluminal filling defects within the central or segmental pulmonary arteries to suggest central pulmonary embolism. Mild left basilar atelectasis. No focal consolidation. No pleural effusion. No pneumothorax. Limited visualized portions of the upper abdomen: Partially imaged right ureteral stent. Diffuse sclerosis of the osseous structures may be due to renal osteodystrophy. Correlate clinically. Impression: There is suboptimal opacification of the pulmonary arteries limiting evaluation for pulmonary embolus. Given this limitation, there are no visible intraluminal filling defects within the central or segmental pulmonary arteries to suggest central pulmonary embolism. Collateral vasculature noted at the level of the neck. Mild left basilar atelectasis. Cardiomegaly. Dense coronary artery calcifications. Dense mitral annulus calcification. Atherosclerotic calcifications of the thoracic aorta present. Limited visualized portions of the upper abdomen: Partially imaged right ureteral stent. Diffuse sclerosis of the osseous structures may be due to renal osteodystrophy. Correlate clinically.
[2018-04-17 19:42] LABS: CK-MB 1.2 ng/mL (0.0-3.38); TROPONIN I 0.137 ng/mL (0.00-0.120)
--- NOTE | 2018-04-17 19:55 | PN ---
DATE: 04/17/2018 SUBJECTIVE: The patient has developed atrial fibrillation early this morning and is currently requiring infusion at 5 mg per hour. PHYSICAL EXAMINATION: VITAL SIGNS: Blood pressure 106/46, heart rate 127, most recent one was 98 on the monitor, temperature 98.1, respirations 19. HEENT: Normocephalic. CHEST: Clear. HEART: S1, S2 regular. EXTREMITIES: No edema. No calf tenderness. LABORATORY DATA: Hemoglobin and hematocrit 10.4 and 30.9, white count 12.7, platelet count 188,000. SMA-7: Sodium 134, potassium 5.1, chloride 91, CO2 25, glucose 102, BUN 65, creatinine 9.5. Troponin 0.125 and 0.14. EKG: Atrial fibrillation at rate of 144 and that was around 2 a.m. ASSESSMENT: 1. New-onset atrial fibrillation. 2. Status post ileocecal resection. 3. Aortic valve insufficiency. 4. End-stage renal disease, on hemodialysis. RECOMMENDATIONS: Continue current infusion at 5 mg per hour. Continue subcutaneous heparin 5000 units every 8 hours. Obtain venous Doppler of lower extremities as well as a CT angio of the chest. Most recent cardiac catheterization in February. The patient was found to have nonobstructive coronary artery disease and it is unlikely that troponin represents acute myocardial injury, but rather related to the patient's end-stage renal disease. Mc Miner MD
--- NOTE | 2018-04-17 20:58 | CP.PCM.PN ---
Subjective - Date & Time of Evaluation Date of Evaluation: 04/17/18 Time of Evaluation: 10:00 - Subjective Subjective: events noted tachycardic post hd, new a fib started on diltiazem and heparin gtt on liquid diet s/p bowel resection for nerotic bowel Objective - Vital Signs/Intake and Output Vital Signs (last 24 hours): Temp Pulse Resp BP Pulse Ox 98.1 F 105 H 13 104/31 L 97 04/17/18 04:00 04/17/18 19:31 04/17/18 19:31 04/17/18 19:31 04/17/18 17:00 Intake and Output: 04/17/18 04/18/18 18:59 06:59 Intake Total 670 Balance 670 - Medications Medications: Current Medications Acetaminophen (Tylenol 325mg Tab) 650 mg PO Q6H PRN PRN Reason: Pain, Mild (1-3) Alprazolam (Xanax) 0.5 mg PO Q12H PRN PRN Reason: Anxiety Benzocaine/Menthol (Cepacol Sore Throat) 1 maggie MT Q4H PRN PRN Reason: Sore Throat Last Admin: 04/15/18 17:16 Dose: 1 maggie Calcium Acetate (Phoslo) 667 mg PO TID [facility] Last Admin: 04/17/18 18:28 Dose: 667 mg Heparin Sodium (Porcine) (Heparin) 5,000 units SC Q8 [facility] Last Admin: 04/17/18 14:44 Dose: 5,000 units Hydromorphone HCl (Dilaudid) 0.5 mg IVP Q4 PRN PRN Reason: Pain, severe (8-10) Last Admin: 04/17/18 20:00 Dose: 0.5 mg Diltiazem HCl 125 mg/ Dextrose 125 mls @ 5 mls/hr IV .Q24H PRN; Protocol PRN Reason: PER TITRATION Last Admin: 04/17/18 15:45 Dose: 5 mg/hr, 5 mls/hr Lactulose (Enulose) 20 gm PO Q8H PRN PRN Reason: Constipation Last Admin: 04/17/18 18:28 Dose: 20 gm Ondansetron HCl (Zofran Inj) 4 mg IVP Q4 PRN PRN Reason: Nausea/Vomiting Last Admin: 11/06/18 10:10 Dose: 4 mg Oxycodone/Acetaminophen (Percocet 5/325 Mg Tab) 1 tab PO Q6H PRN PRN Reason: Pain, moderate (4-7) Stop: 04/18/18 09:04 Last Admin: 04/16/18 10:31 Dose: 1 tab Pantoprazole Sodium (Protonix Ec Tab) 40 mg PO DAILY [facility] Last Admin: 04/17/18 09:21 Dose: 40 mg Sevelamer Carbonate (Renvela) 1,600 mg PO TIDCC [facility] Last Admin: 04/17/18 18:00 Dose: 1,600 mg Tamsulosin HCl (Flomax) 0.4 mg PO DAILY [facility] Last Admin: 04/17/18 09:22 Dose: 0.4 mg - Labs Labs: 04/17/18 06:08 04/17/18 06:08 PT 14.1 SECONDS (9.7-12.2) H 04/13/18 07:40 INR 1.3 04/13/18 07:40 APTT 37 SECONDS (21-34) H 04/13/18 07:40 - Constitutional Appears: Non-toxic, No Acute Distress, Chronically Ill - Head Exam Head Exam: ATRAUMATIC, NORMAL INSPECTION - Eye Exam Eye Exam: EOMI, Normal appearance - ENT Exam ENT Exam: Mucous Membranes Dry - Neck Exam Neck Exam: Full ROM, Normal Inspection - Respiratory Exam Respiratory Exam: Decreased Breath Sounds (bases), NORMAL BREATHING PATTERN - Cardiovascular Exam Cardiovascular Exam: Tachycardia - GI/Abdominal Exam GI & Abdominal Exam: Distended, Tenderness (diffuse) - Extremities Exam Extremities Exam: Normal Inspection - Back Exam Back Exam: NORMAL INSPECTION - Neurological Exam Neurological Exam: Alert, Awake, Oriented x3 - Psychiatric Exam Psychiatric exam: Normal Affect, Normal Mood - Skin Skin Exam: Intact, Normal Color Assessment and Plan (1) Atrial fibrillation Status: Acute (2) Hyperkalemia Status: Acute (3) Chronic pyelonephritis Status: Acute (4) ESRD (end stage renal disease) Status: Acute (5) Hypertension Status: Chronic - Assessment and Plan (Free Text) Assessment: plan for hd tomorrow and mwf, uf as tolerated. cardiac evaluation. troponin leak of unclear significance advance diet as per surgery
[2018-04-18 02:43] LABS: CK-MB 1.13 ng/mL (0.0-3.38); TROPONIN I 0.123 ng/mL (0.00-0.120)
[2018-04-18] MEDS: HYDROmorphone 0.5 mg/0.5 ml ISec IVP PRN ×2 (03:34→10:02)
--- NOTE | 2018-04-18 06:27 | CP.PCM.PN ---
Subjective - Date & Time of Evaluation Date of Evaluation: 04/17/18 Time of Evaluation: 06:27 - Subjective Subjective: dictated Objective - Vital Signs/Intake and Output Vital Signs (last 24 hours): Temp Pulse Resp BP Pulse Ox 97.2 F L 96 H 20 103/52 L 95 04/18/18 04:37 04/18/18 04:37 04/18/18 04:37 04/18/18 04:37 04/18/18 04:37 Intake and Output: 04/17/18 04/18/18 18:59 06:59 Intake Total 670 Balance 670 - Medications Medications: Current Medications Acetaminophen (Tylenol 325mg Tab) 650 mg PO Q6H PRN PRN Reason: Pain, Mild (1-3) Alprazolam (Xanax) 0.5 mg PO Q12H PRN PRN Reason: Anxiety Benzocaine/Menthol (Cepacol Sore Throat) 1 maggie MT Q4H PRN PRN Reason: Sore Throat Last Admin: 04/15/18 17:16 Dose: 1 maggie Calcium Acetate (Phoslo) 667 mg PO TID [facility] Last Admin: 04/17/18 18:28 Dose: 667 mg Heparin Sodium (Porcine) (Heparin) 5,000 units SC Q8 [facility] Last Admin: 04/18/18 05:50 Dose: Not Given Hydromorphone HCl (Dilaudid) 0.5 mg IVP Q4 PRN PRN Reason: Pain, severe (8-10) Last Admin: 04/18/18 03:34 Dose: 0.5 mg Diltiazem HCl 125 mg/ Dextrose 125 mls @ 5 mls/hr IV .Q24H PRN; Protocol PRN Reason: PER TITRATION Last Admin: 04/17/18 15:45 Dose: 5 mg/hr, 5 mls/hr Lactulose (Enulose) 20 gm PO Q8H PRN PRN Reason: Constipation Last Admin: 04/17/18 18:28 Dose: 20 gm Ondansetron HCl (Zofran Inj) 4 mg IVP Q4 PRN PRN Reason: Nausea/Vomiting Last Admin: 04/17/18 10:10 Dose: 4 mg Oxycodone/Acetaminophen (Percocet 5/325 Mg Tab) 1 tab PO Q6H PRN PRN Reason: Pain, moderate (4-7) Stop: 04/18/18 09:04 Last Admin: 04/16/18 10:31 Dose: 1 tab Pantoprazole Sodium (Protonix Ec Tab) 40 mg PO DAILY [facility] Last Admin: 04/17/18 09:21 Dose: 40 mg Sevelamer Carbonate (Renvela) 1,600 mg PO TIDCC [facility] Last Admin: 04/17/18 18:00 Dose: 1,600 mg Tamsulosin HCl (Flomax) 0.4 mg PO DAILY [facility] Last Admin: 04/17/18 09:22 Dose: 0.4 mg - Labs Labs: 04/17/18 06:08 04/17/18 06:08 PT 14.1 SECONDS (9.7-12.2) H 04/13/18 07:40 INR 1.3 04/13/18 07:40 APTT 37 SECONDS (21-34) H 04/13/18 07:40 Assessment and Plan (1) Right lower quadrant pain Status: Acute (2) ESRD (end stage renal disease) Status: Chronic (3) Hypertension Status: Chronic (4) Nephrolithiasis Status: Chronic
--- NOTE | 2018-04-18 06:28 | CP.PCM.PN ---
Subjective - Date & Time of Evaluation Date of Evaluation: 04/17/18 Time of Evaluation: 06:27 - Subjective Subjective: dictated Objective - Vital Signs/Intake and Output Vital Signs (last 24 hours): Temp Pulse Resp BP Pulse Ox 97.2 F L 96 H 20 103/52 L 95 04/18/18 04:37 04/18/18 04:37 04/18/18 04:37 04/18/18 04:37 04/18/18 04:37 Intake and Output: 04/17/18 04/18/18 18:59 06:59 Intake Total 670 Balance 670 - Medications Medications: Current Medications Acetaminophen (Tylenol 325mg Tab) 650 mg PO Q6H PRN PRN Reason: Pain, Mild (1-3) Alprazolam (Xanax) 0.5 mg PO Q12H PRN PRN Reason: Anxiety Benzocaine/Menthol (Cepacol Sore Throat) 1 maggie MT Q4H PRN PRN Reason: Sore Throat Last Admin: 04/15/18 17:16 Dose: 1 maggie Calcium Acetate (Phoslo) 667 mg PO TID [facility] Last Admin: 04/17/18 18:28 Dose: 667 mg Heparin Sodium (Porcine) (Heparin) 5,000 units SC Q8 [facility] Last Admin: 04/18/18 05:50 Dose: Not Given Hydromorphone HCl (Dilaudid) 0.5 mg IVP Q4 PRN PRN Reason: Pain, severe (8-10) Last Admin: 04/18/18 03:34 Dose: 0.5 mg Diltiazem HCl 125 mg/ Dextrose 125 mls @ 5 mls/hr IV .Q24H PRN; Protocol PRN Reason: PER TITRATION Last Admin: 04/17/18 15:45 Dose: 5 mg/hr, 5 mls/hr Lactulose (Enulose) 20 gm PO Q8H PRN PRN Reason: Constipation Last Admin: 04/17/18 18:28 Dose: 20 gm Ondansetron HCl (Zofran Inj) 4 mg IVP Q4 PRN PRN Reason: Nausea/Vomiting Last Admin: 04/17/18 10:10 Dose: 4 mg Oxycodone/Acetaminophen (Percocet 5/325 Mg Tab) 1 tab PO Q6H PRN PRN Reason: Pain, moderate (4-7) Stop: 04/18/18 09:04 Last Admin: 04/16/18 10:31 Dose: 1 tab Pantoprazole Sodium (Protonix Ec Tab) 40 mg PO DAILY [facility] Last Admin: 04/17/18 09:21 Dose: 40 mg Sevelamer Carbonate (Renvela) 1,600 mg PO TIDCC [facility] Last Admin: 04/17/18 18:00 Dose: 1,600 mg Tamsulosin HCl (Flomax) 0.4 mg PO DAILY [facility] Last Admin: 04/17/18 09:22 Dose: 0.4 mg - Labs Labs: 04/17/18 06:08 04/17/18 06:08 PT 14.1 SECONDS (9.7-12.2) H 04/13/18 07:40 INR 1.3 04/13/18 07:40 APTT 37 SECONDS (21-34) H 04/13/18 07:40 Assessment and Plan (1) Right lower quadrant pain Status: Acute (2) ESRD (end stage renal disease) Status: Chronic (3) Hypertension Status: Chronic (4) Nephrolithiasis Status: Chronic
[2018-04-18] MEDS: Pantoprazole 40 mg EC Tab PO SCH (10:02)
--- NOTE | 2018-04-18 12:00 | PN ---
DATE: 04/18/2018 SUBJECTIVE: Wei Frank developed rapid atrial fibrillation and he was placed on diltiazem. No fever. No chest pain. No shortness of breath. Troponins have been ordered by me. Troponins are borderline positive. Troponin just ordered is 0.125. No fever, no chest pain. PHYSICAL EXAMINATION: VITAL SIGNS: Blood pressure 103/52, pulse 96, respiratory rate 20, temperature 97.2. LUNGS: Clear. No rales. No rhonchi. CARDIOVASCULAR SYSTEM: S1, S2, irregularly irregular. ABDOMEN: Postop. Bowel sounds are present. ASSESSMENT: 1. Acute appendicitis, status post appendectomy. 2. New onset rapid atrial fibrillation. The patient is on Cardizem drip and his heart rate is getting controlled. 3. Extensive nephrolithiasis with endstage renal disease, on hemodialysis. 4. Anemia of chronic disease. PLAN: Continue diltiazem drip. Cardiology followup. Monitor the patient. Mikel Marc MD
[2018-04-18] MEDS ORDERED: Oxycodone/Acetaminophen 5/325 mg Tab PO PRN ×2 (12:27→12:28)
--- NOTE | 2018-04-18 13:05 | CP.PCM.PN ---
Subjective - Date & Time of Evaluation Date of Evaluation: 04/18/18 Time of Evaluation: 13:03 - Subjective Subjective: asking for pain medicines moving bowels eating solid food Hd today no fever mild dyspnea no rash no headache no nausea no arthralgias mild abdominal pain Objective - Vital Signs/Intake and Output Vital Signs (last 24 hours): Temp Pulse Resp BP Pulse Ox 98.0 F 89 20 100/55 L 96 04/18/18 07:10 04/18/18 08:09 04/18/18 07:10 04/18/18 07:10 04/18/18 07:10 - Medications Medications: Current Medications Acetaminophen (Tylenol 325mg Tab) 650 mg PO Q6H PRN PRN Reason: Pain, Mild (1-3) Alprazolam (Xanax) 0.5 mg PO Q12H PRN PRN Reason: Anxiety Benzocaine/Menthol (Cepacol Sore Throat) 1 maggie MT Q4H PRN PRN Reason: Sore Throat Last Admin: 04/15/18 17:16 Dose: 1 maggie Calcium Acetate (Phoslo) 667 mg PO TID [facility] Last Admin: 04/18/18 10:02 Dose: 667 mg Diltiazem HCl (Cardizem) 60 mg PO Q8H [facility] Lactulose (Enulose) 20 gm PO Q8H PRN PRN Reason: Constipation Last Admin: 04/17/18 18:28 Dose: 20 gm Ondansetron HCl (Zofran Inj) 4 mg IVP Q4 PRN PRN Reason: Nausea/Vomiting Last Admin: 04/17/18 10:10 Dose: 4 mg Oxycodone/Acetaminophen (Percocet 5/325 Mg Tab) 2 tab PO Q4H PRN PRN Reason: Pain, severe (8-10) Stop: 04/21/18 12:28 Oxycodone/Acetaminophen (Percocet 5/325 Mg Tab) 1 tab PO Q4H PRN PRN Reason: Pain, moderate (4-7) Stop: 04/21/18 12:29 Pantoprazole Sodium (Protonix Ec Tab) 40 mg PO DAILY [facility] Last Admin: 04/18/18 10:02 Dose: 40 mg Sevelamer Carbonate (Renvela) 1,600 mg PO TIDCC [facility] Last Admin: 04/18/18 08:35 Dose: 1,600 mg Tamsulosin HCl (Flomax) 0.4 mg PO DAILY [facility] Last Admin: 04/18/18 10:02 Dose: 0.4 mg - Labs Labs: 04/17/18 06:08 04/17/18 06:08 PT 14.1 SECONDS (9.7-12.2) H 04/13/18 07:40 INR 1.3 04/13/18 07:40 APTT 37 SECONDS (21-34) H 04/13/18 07:40 - Constitutional Appears: Non-toxic, Chronically Ill - Head Exam Head Exam: ATRAUMATIC, NORMAL INSPECTION - Eye Exam Eye Exam: EOMI. absent: Periorbital tenderness - ENT Exam ENT Exam: Mucous Membranes Moist, Normal External Ear Exam - Neck Exam Neck Exam: Full ROM. absent: Lymphadenopathy, Tenderness - Respiratory Exam Respiratory Exam: Decreased Breath Sounds, NORMAL BREATHING PATTERN - Cardiovascular Exam Cardiovascular Exam: REGULAR RHYTHM. absent: Rubs - GI/Abdominal Exam GI & Abdominal Exam: Distended, Soft, Tenderness - Extremities Exam Extremities Exam: absent: Pedal Edema - Neurological Exam Neurological Exam: Alert, Awake, Oriented x3 - Psychiatric Exam Psychiatric exam: Normal Affect, Normal Mood Assessment and Plan - Assessment and Plan (Free Text) Assessment: maint HD, scheduled for today surgical follow up pain management
--- NOTE | 2018-04-18 16:54 | CP.PCM.PN ---
Subjective - Date & Time of Evaluation Date of Evaluation: 04/18/18 Time of Evaluation: 09:00 - Subjective Subjective: GENERAL SURGERY PROGRESS NOTE FOR DR. STUART Patient seen and examined at bedside. He had rapid A fib last night after dialysis and he was started on Cardizem. He admits to flatus and had a BM yesterday. He is using the IS and got OOB to go to the bathroom. States that he has not ambulated in the hallway and he is waiting for PT, however, did not have PT yesterday due to positive troponins. Complains of post op pain. Tolerating CLD.. Objective - Vital Signs/Intake and Output Vital Signs (last 24 hours): Temp Pulse Resp BP Pulse Ox 97.5 F L 97 H 24 96/4 L 93 L 04/18/18 14:45 04/18/18 16:45 04/18/18 14:45 04/18/18 16:45 04/18/18 14:45 - Medications Medications: Current Medications Acetaminophen (Tylenol 325mg Tab) 650 mg PO Q6H PRN PRN Reason: Pain, Mild (1-3) Alprazolam (Xanax) 0.5 mg PO Q12H PRN PRN Reason: Anxiety Benzocaine/Menthol (Cepacol Sore Throat) 1 maggie MT Q4H PRN PRN Reason: Sore Throat Last Admin: 04/15/18 17:16 Dose: 1 maggie Calcium Acetate (Phoslo) 667 mg PO TID [facility] Last Admin: 04/18/18 13:13 Dose: 667 mg Diltiazem HCl (Cardizem) 60 mg PO Q8H [facility] Last Admin: 04/18/18 13:07 Dose: Not Given Lactulose (Enulose) 20 gm PO Q8H PRN PRN Reason: Constipation Last Admin: 04/17/18 18:28 Dose: 20 gm Ondansetron HCl (Zofran Inj) 4 mg IVP Q4 PRN PRN Reason: Nausea/Vomiting Last Admin: 04/17/18 10:10 Dose: 4 mg Oxycodone/Acetaminophen (Percocet 5/325 Mg Tab) 2 tab PO Q4H PRN PRN Reason: Pain, severe (8-10) Stop: 04/21/18 12:28 Oxycodone/Acetaminophen (Percocet 5/325 Mg Tab) 1 tab PO Q4H PRN PRN Reason: Pain, moderate (4-7) Stop: 04/21/18 12:29 Pantoprazole Sodium (Protonix Ec Tab) 40 mg PO DAILY [facility] Last Admin: 04/18/18 10:02 Dose: 40 mg Sevelamer Carbonate (Renvela) 2.4 gm PO BIDCC [facility] Tamsulosin HCl (Flomax) 0.4 mg PO DAILY [facility] Last Admin: 04/18/18 10:02 Dose: 0.4 mg - Labs Labs: 04/17/18 06:08 04/17/18 06:08 PT 14.1 SECONDS (9.7-12.2) H 04/13/18 07:40 INR 1.3 04/13/18 07:40 APTT 37 SECONDS (21-34) H 04/13/18 07:40 - Constitutional Appears: Non-toxic, No Acute Distress - Head Exam Head Exam: ATRAUMATIC, NORMAL INSPECTION - Eye Exam Eye Exam: EOMI, Normal appearance - Respiratory Exam Respiratory Exam: NORMAL BREATHING PATTERN. absent: Respiratory Distress - Cardiovascular Exam Cardiovascular Exam: +S1, +S2. absent: Tachycardia - GI/Abdominal Exam GI & Abdominal Exam: Soft, Tenderness (diffuse tenderness). absent: Distended, Firm, Guarding, Rigid, Rebound Additional comments: [place] in place over midline incision - Neurological Exam Neurological Exam: Alert, Awake, Oriented x3 - Psychiatric Exam Psychiatric exam: Normal Affect, Normal Mood - Skin Skin Exam: Dry, Normal Color, Warm Assessment and Plan - Assessment and Plan (Free Text) Assessment: 48M s/p Ex-Lap with ileocecectomy for gangrenous segment of cecum; POD#5 Path: cecum w/ transmural gangrenous necrosis w/ associated marked acute inflammation, edema, scattered fibrin thrombi, severe acute serositis, normal appendix Plan: - Tolerating liquid diet, had a BM - Advanced to soft diet - Dilaudid DCed, Pt on Percocet - Encourage ambulation, continue PT - Encourage IS use - Discussed plan with Dr. Lisa Barth PGY-4
[2018-04-18] MEDS: Sevelamer Carb 2.4 gm/Packet PO SCH (18:25)
--- NOTE | 2018-04-18 19:35 | PN ---
DATE: 04/18/2018 SUBJECTIVE: The patient denies any chest pain. He is still experiencing abdominal discomfort. He had a bowel movement yesterday and he is about to go for hemodialysis. PHYSICAL EXAMINATION VITAL SIGNS: Blood pressure 93/48, heart rate 83, temperature 98. HEENT: Pale conjunctivae. CHEST: Clear. HEART: S1 and S2 irregular. EXTREMITIES: No edema. LABORATORY DATA: Venous Doppler of the lower extremity, no evidence of DVT. CT angio of the chest revealed suboptimal opacification of the pulmonary arteries limiting the evaluation for pulmonary embolus. Given the limitation, there are no visible intraluminal filling defects within the central or segmental pulmonary arteries associated with central pulmonary embolism. ASSESSMENT: 1. Status post ileocecectomy for gangrenous changes. 2. New-onset atrial fibrillation. 3. End-stage renal disease, on hemodialysis. 4. Aortic insufficiency. RECOMMENDATIONS: Continue IV Cardizem and start oral Cardizem 60 mg p.o. every 8 hours. Continue current PhosLo, Renvela and subcutaneous heparin. The patient will undergo hemodialysis this afternoon. Mc Miner MD
--- NOTE | 2018-04-18 19:49 | CARD ---
APPROVED REPORT Date of service: 04/17/2018 EKG Measurement Heart [id number] <Conclusion> Atrial fibrillation Nonspecific T wave abnormality Abnormal ECG
--- NOTE | 2018-04-18 21:16 | CP.PCM.PN ---
Subjective - Subjective Subjective: dictated Objective - Vital Signs/Intake and Output Vital Signs (last 24 hours): Temp Pulse Resp BP Pulse Ox 98.1 F 102 H 15 111/46 L 94 L 04/18/18 18:33 04/18/18 18:33 04/18/18 18:33 04/18/18 18:33 04/18/18 18:33 - Medications Medications: Current Medications Acetaminophen (Tylenol 325mg Tab) 650 mg PO Q6H PRN PRN Reason: Pain, Mild (1-3) Alprazolam (Xanax) 0.5 mg PO Q12H PRN PRN Reason: Anxiety Benzocaine/Menthol (Cepacol Sore Throat) 1 maggie MT Q4H PRN PRN Reason: Sore Throat Last Admin: 04/15/18 17:16 Dose: 1 maggie Calcium Acetate (Phoslo) 667 mg PO TID [facility] Last Admin: 04/18/18 18:25 Dose: 667 mg Diltiazem HCl (Cardizem) 60 mg PO Q8H [facility] Last Admin: 04/18/18 21:15 Dose: 60 mg Lactulose (Enulose) 20 gm PO Q8H PRN PRN Reason: Constipation Last Admin: 04/17/18 18:28 Dose: 20 gm Ondansetron HCl (Zofran Inj) 4 mg IVP Q4 PRN PRN Reason: Nausea/Vomiting Last Admin: 04/17/18 10:10 Dose: 4 mg Oxycodone/Acetaminophen (Percocet 5/325 Mg Tab) 2 tab PO Q4H PRN PRN Reason: Pain, severe (8-10) Stop: 04/21/18 12:28 Oxycodone/Acetaminophen (Percocet 5/325 Mg Tab) 1 tab PO Q4H PRN PRN Reason: Pain, moderate (4-7) Stop: 04/21/18 12:29 Last Admin: 04/18/18 18:29 Dose: 1 tab Pantoprazole Sodium (Protonix Ec Tab) 40 mg PO DAILY [facility] Last Admin: 04/18/18 10:02 Dose: 40 mg Sevelamer Carbonate (Renvela) 2.4 gm PO BIDCC [facility] Last Admin: 04/18/18 18:25 Dose: 2.4 gm Tamsulosin HCl (Flomax) 0.4 mg PO DAILY [facility] Last Admin: 04/18/18 10:02 Dose: 0.4 mg - Labs Labs: 04/17/18 06:08 04/17/18 06:08 PT 14.1 SECONDS (9.7-12.2) H 04/13/18 07:40 INR 1.3 04/13/18 07:40 APTT 37 SECONDS (21-34) H 04/13/18 07:40
--- NOTE | 2018-04-19 03:43 | PN ---
DATE: 04/18/2018 SUBJECTIVE: The patient, Zac, is still in atrial fibrillation. His heart rate is relatively controlled, is borderline. He denies any chest pain. He is seen by Cardiology. No fever. No chills. No nausea. No vomiting. He is out of ICU. PHYSICAL EXAMINATION: VITAL SIGNS: Blood pressure 111/46, pulse 102, respiratory rate 15, temperature 98.1. His pulse is irregularly irregular. LUNGS: Bilaterally clear. No rales, no rhonchi. CARDIOVASCULAR SYSTEM: S1, S2, irregularly regular. There is an AV fistula in the left upper extremity. CENTRAL NERVOUS SYSTEM: Awake, alert, and oriented x3. ASSESSMENT: 1. Appendicitis, status post appendectomy. 2. Atrial fibrillation with rapid ventricular response. Response is under control with diltiazem oral. 3. Chronic kidney disease, on hemodialysis. 4. Nephrolithiasis. PLAN: Continue current medication. Monitor the patient. Mikel Marc MD
[2018-04-19] MEDS: Sevelamer Carb 2.4 gm/Packet PO SCH ×2 (08:49→17:59)
[2018-04-19] MEDS: Pantoprazole 40 mg EC Tab PO SCH (09:19)
--- NOTE | 2018-04-19 09:55 | CP.PCM.PN ---
Subjective - Date & Time of Evaluation Date of Evaluation: 04/19/18 Time of Evaluation: 09:54 - Subjective Subjective: c/o abdominal pains post prandial Not eating much Stable dialysis 04/18 HTN controlled Objective - Vital Signs/Intake and Output Vital Signs (last 24 hours): Temp Pulse Resp BP Pulse Ox 98.1 F 89 18 100/40 L 97 04/19/18 07:00 04/19/18 08:09 04/19/18 07:00 04/19/18 07:00 04/19/18 07:00 - Medications Medications: Current Medications Acetaminophen (Tylenol 325mg Tab) 650 mg PO Q6H PRN PRN Reason: Pain, Mild (1-3) Alprazolam (Xanax) 0.5 mg PO Q12H PRN PRN Reason: Anxiety Benzocaine/Menthol (Cepacol Sore Throat) 1 maggie MT Q4H PRN PRN Reason: Sore Throat Last Admin: 04/15/18 17:16 Dose: 1 maggie Calcium Acetate (Phoslo) 667 mg PO TID [facility] Last Admin: 04/19/18 09:19 Dose: 667 mg Diltiazem HCl (Cardizem) 60 mg PO Q8H [facility] Last Admin: 04/19/18 06:01 Dose: Not Given Lactulose (Enulose) 20 gm PO Q8H PRN PRN Reason: Constipation Last Admin: 04/17/18 18:28 Dose: 20 gm Ondansetron HCl (Zofran Inj) 4 mg IVP Q4 PRN PRN Reason: Nausea/Vomiting Last Admin: 04/17/18 10:10 Dose: 4 mg Oxycodone/Acetaminophen (Percocet 5/325 Mg Tab) 2 tab PO Q4H PRN PRN Reason: Pain, severe (8-10) Stop: 04/21/18 12:28 Oxycodone/Acetaminophen (Percocet 5/325 Mg Tab) 1 tab PO Q4H PRN PRN Reason: Pain, moderate (4-7) Stop: 04/21/18 12:29 Last Admin: 04/18/18 18:29 Dose: 1 tab Pantoprazole Sodium (Protonix Ec Tab) 40 mg PO DAILY [facility] Last Admin: 04/19/18 09:19 Dose: 40 mg Sevelamer Carbonate [facility] Last Admin: 04/19/18 08:49 Dose: 2.4 gm Tamsulosin HCl (Flomax) 0.4 mg PO DAILY [facility] Last Admin: 04/19/18 09:19 Dose: 0.4 mg - Labs Labs: 04/17/18 06:08 04/17/18 06:08 PT 14.1 SECONDS (9.7-12.2) H 04/13/18 07:40 INR 1.3 04/13/18 07:40 APTT 37 SECONDS (21-34) H 04/13/18 07:40 - Constitutional Appears: No Acute Distress, Chronically Ill - Head Exam Head Exam: ATRAUMATIC, NORMAL INSPECTION - Eye Exam Eye Exam: EOMI, Normal appearance - Neck Exam Neck Exam: Normal Inspection. absent: Tenderness - Respiratory Exam Respiratory Exam: Clear to Ausculation Bilateral, NORMAL BREATHING PATTERN - Cardiovascular Exam Cardiovascular Exam: REGULAR RHYTHM, +S1 - GI/Abdominal Exam GI & Abdominal Exam: Soft, Tenderness - Extremities Exam Extremities Exam: Normal Inspection. absent: Tenderness - Neurological Exam Neurological Exam: Awake, CN II-XII Intact - Skin Skin Exam: Dry, Warm Assessment and Plan (1) Hyperkalemia Status: Acute (2) End stage renal disease Status: Acute (3) Hyperphosphatemia Status: Acute (4) S/p nephrectomy Status: Acute (5) SBE (subacute bacterial endocarditis) Status: Acute (6) Xanthogranulomatous pyelonephritis Status: Acute (7) Nephrolithiasis Status: Chronic - Assessment and Plan (Free Text) Plan: Dialysis MWF Surgical follow up for abdominal pains
--- NOTE | 2018-04-19 14:12 | VASCLAB ---
Date of service: 04/17/2018 PROCEDURE: Lower Extremity Venous Duplex Exam. HISTORY: R/O DVT PRIORS: None. TECHNIQUE: Bilateral common femoral, femoral, popliteal and posterior tibial, peroneal and great saphenous veins were evaluated. Flow was assessed with color Doppler, compressibility, assessment of phasic flow and augmentation response. Report prepared by Artie Garcia, BS, RVT FINDINGS: RIGHT: 1. Common Femoral Vein: 1.1. Compressibility - Fully compressible: Thrombus - None : Flow - Phasic: Augmentation -Normal: Reflux - None. 2. Femoral Vein: 2.1. Compressibility - Fully compressible: Thrombus - None : Flow - Phasic: Augmentation -Normal: Reflux - None. 3. Popliteal Vein: 3.1. Compressibility - Fully compressible: Thrombus - None : Flow - Phasic: Augmentation -Normal: Reflux - None. 4. Posterior Tibial Vein: 4.1. Compressibility - Fully compressible: Thrombus - None: Flow - Phasic: Augmentation -Normal: Reflux - None. 5. Peroneal Vein: 5.1. Compressibility - Fully compressible: Thrombus - None: Flow - Phasic: Augmentation -Normal: Reflux - None. 6. Great Saphenous Vein: 6.1. Compressibility - Fully compressible: Thrombus - None: Flow - Phasic: Augmentation - Normal: Reflux - None. LEFT: 1. Common Femoral Vein: 1.1. Compressibility - Fully compressible: Thrombus - None: Flow - Phasic: Augmentation -Normal: Reflux - None. 2. Femoral Vein: 2.1. Compressibility - Fully compressible: Thrombus - None: Flow - Phasic: Augmentation -Normal: Reflux - None. 3. Popliteal Vein: 3.1. Compressibility - Fully compressible: Thrombus - None : Flow - Phasic: Augmentation -Normal: Reflux - None. 4. Posterior Tibial Vein: 4.1. Compressibility - Fully compressible: Thrombus - None: Flow - Phasic: Augmentation -Normal: Reflux - None. 5. Peroneal Vein: 5.1. Compressibility - Fully compressible: Thrombus - None: Flow - Phasic: Augmentation -Normal: Reflux - None. 6. Great Saphenous Vein: 6.1. Compressibility - Fully compressible: Thrombus - None: Flow - Phasic: Augmentation - Normal: Reflux - None. OTHER FINDINGS: Right: None significant. Left: None significant. IMPRESSION: Right: No evidence of deep or superficial vein thrombosis of the right lower extremity. Normal valve function noted of the right side. Left: No evidence of deep or superficial vein thrombosis of the left lower extremity. Normal valve function noted of the left side.
[2018-04-19 14:29] LABS: ABG ALLEN TEST POS; ARTERIAL BLOOD GAS HCO3 26.6 mmol/L (21-28); ARTERIAL BLOOD GAS O2 SAT 96.4 % (95-98); ARTERIAL BLOOD GAS PCO2 34 mm/Hg (35-45); ARTERIAL BLOOD GAS PH 7.48 (7.35-7.45); ARTERIAL BLOOD GAS PO2 71 mm/Hg (80-100); ARTERIAL BLOOD GAS TCO2 26.3 mmol/L (22-28)
[2018-04-19 15:07] LABS: BASO % 0.4 % (0.0-2.0); EOS # 0.1 K/uL (0.0-0.7); EOS % 1.3 % (0.0-4.0); HEMOGLOBIN 10.5 g/dL (12.0-18.0); LYMPH # 0.8 K/uL (1.0-4.3); LYMPH % 14.2 % (20.0-40.0); MEAN CELL VOLUME 94.4 fL (80.0-94.0); MEAN CORPUSCULAR HEMOGLOBIN 31.6 pg (27.0-31.0); MEAN CORPUSCULAR HGB CONC 33.5 g/dL (33.0-37.0); MEAN PLATELET VOLUME 8.3 fL (7.2-11.7); MONO # 0.5 K/uL (0.0-0.8); MONO % 8.1 % (0.0-10.0); NEUT # 4.2 K/uL (1.8-7.0); NRBC % 0.2 % (0.0-2.0); RBC 3.31 Mil/uL (4.40-5.90); RED CELL DISTRIBUTION WIDTH 15.3 % (11.5-14.5); WHITE BLOOD COUNT 5.6 K/uL (4.8-10.8)
--- NOTE | 2018-04-19 15:13 | CP.PCM.PN ---
Subjective - Date & Time of Evaluation Date of Evaluation: 04/19/18 Time of Evaluation: 07:00 - Subjective Subjective: Surgery: Dr. Gonzalez Pt seen and examined. No acute overnight events. States he continues to have some pain in the RLQ and around the incision. Admits to tolerating diet and denies nausea/vomiting, fevers/chills. Admits to BM yesterday and flatus today. Objective - Vital Signs/Intake and Output Vital Signs (last 24 hours): Temp Pulse Resp BP Pulse Ox 98.1 F 89 18 100/40 L 97 04/19/18 07:00 04/19/18 08:09 04/19/18 07:00 04/19/18 07:00 04/19/18 07:00 - Medications Medications: Current Medications Acetaminophen (Tylenol 325mg Tab) 650 mg PO Q6H PRN PRN Reason: Pain, Mild (1-3) Alprazolam (Xanax) 0.5 mg PO Q12H PRN PRN Reason: Anxiety Benzocaine/Menthol (Cepacol Sore Throat) 1 maggie MT Q4H PRN PRN Reason: Sore Throat Last Admin: 04/15/18 17:16 Dose: 1 maggie Calcium Acetate (Phoslo) 667 mg PO TID [facility] Last Admin: 04/19/18 13:24 Dose: Not Given Diltiazem HCl (Cardizem) 60 mg PO Q8H [facility] Last Admin: 04/19/18 13:26 Dose: Not Given Lactulose (Enulose) 20 gm PO Q8H PRN PRN Reason: Constipation Last Admin: 04/17/18 18:28 Dose: 20 gm Ondansetron HCl (Zofran Inj) 4 mg IVP Q4 PRN PRN Reason: Nausea/Vomiting Last Admin: 04/19/18 10:47 Dose: 4 mg Oxycodone/Acetaminophen (Percocet 5/325 Mg Tab) 2 tab PO Q4H PRN PRN Reason: Pain, severe (8-10) Stop: 04/21/18 12:28 Last Admin: 04/19/18 13:24 Dose: 2 tab Oxycodone/Acetaminophen (Percocet 5/325 Mg Tab) 1 tab PO Q4H PRN PRN Reason: Pain, moderate (4-7) Stop: 04/21/18 12:29 Last Admin: 04/18/18 18:29 Dose: 1 tab Pantoprazole Sodium (Protonix Ec Tab) 40 mg PO DAILY [facility] Last Admin: 04/19/18 09:19 Dose: 40 mg Sevelamer Carbonate (Renvela) 2.4 gm PO BIDCC [facility] Last Admin: 04/19/18 08:49 Dose: 2.4 gm Tamsulosin HCl (Flomax) 0.4 mg PO DAILY [facility] Last Admin: 04/19/18 09:19 Dose: 0.4 mg - Labs Labs: 04/17/18 06:08 04/17/18 06:08 PT 14.1 SECONDS (9.7-12.2) H 04/13/18 07:40 INR 1.3 04/13/18 07:40 APTT 37 SECONDS (21-34) H 04/13/18 07:40 - Constitutional Appears: Well, No Acute Distress - Eye Exam Eye Exam: Normal appearance - Respiratory Exam Respiratory Exam: NORMAL BREATHING PATTERN - Cardiovascular Exam Cardiovascular Exam: RRR - GI/Abdominal Exam GI & Abdominal Exam: Soft, Tenderness (RLQ & around incision, clean/dry/intact with napoleon in places). absent: Distended, Guarding - Neurological Exam Neurological Exam: Alert, Awake, Oriented x3 - Skin Skin Exam: Dry, Warm Assessment and Plan - Assessment and Plan (Free Text) Assessment: 48M s/p ileocecectomy for necrotic segment of cecum; POD#6 Plan: - f/u abdomen X-ray - cont soft diet - monitor bowel function - encourage ambulation - d/w Dr. Lisa Carr
[2018-04-19] MEDS ORDERED: Tramadol 25 mg PO PRN (15:26)
[2018-04-19 15:33] LABS: ALB/GLOB RATIO 0.9 (1.0-2.1); ALBUMIN 3.4 g/dL (3.5-5.0)
--- NOTE | 2018-04-19 19:17 | RAD ---
Date of service: 04/19/2018 HISTORY: abdominal pain COMPARISON: Abdomen radiographs 02/18/2018. FINDINGS: BOWEL: Skin napoleon are identified at the right roderick abdomen inferiorly in the interval, with right double-J ureteral stent again identified in position. Staghorn calculi identified at the region of the right kidney once again. Distended small bowel loops are identified at the central left and left roderick abdomen predominate but also in the pelvis with gas and stool identified at the right hemicolon and likely the hepatic flexure. Pattern likely reflects postoperative ileus though developing distal small bowel obstruction not completely excluded. Clinical correlation and radiographic follow-up are advised. No free intra peritoneal gas is identified. BONES: Normal. OTHER FINDINGS: None. IMPRESSION: Postoperative ileus is likely though distal small-bowel obstruction not completely excluded. Further clinical correlation advised. Interval skin napoleon right roderick abdomen and pelvis. Right double-J ureteral stent reiterated as well as staghorn calculi right kidney.
--- NOTE | 2018-04-19 20:06 | PN ---
DATE: 04/19/2018 SUBJECTIVE: The patient is experiencing nausea and vomiting. He did receive Zofran at 10' clock in the morning, IV Zofran at 10 a.m. PHYSICAL EXAMINATION: VITAL SIGNS: Blood pressure 100/40, heart rate 67, temperature 98.1, respirations 18. HEENT: Pale conjunctivae. CHEST: Clear. HEART: S1, S2 regular. EXTREMITIES: No edema. ASSESSMENT AND PLAN: 1. Status post ileocecectomy for gangrenous changes. 2. Right staghorn renal calculus with history of renal colic. 3. 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 4. History of hepatitis C. 5. Atrial fibrillation. PLAN: Continue current Cardizem 60 mg every 8 hours. Restart subcutaneous heparin at 5000 units every 8 hours if there is no contraindication. Case was discussed with the primary physician. The patient can be started on discharge on Eliquis 5 mg daily and continue if the patient complies with his outpatient medication regimen and does not have any hematuria. Mc Miner MD
[2018-04-19] MEDS ORDERED: Vitamins A & D Oint UD Foilpak TOP ONE (21:53)
--- NOTE | 2018-04-20 03:40 | PN ---
DATE: 04/19/2018 SUBJECTIVE: Zac is afebrile. Has no shortness of breath. He has decreased heart rate, on Cardizem. PHYSICAL EXAMINATION: VITAL SIGNS: Blood pressure 102/37, pulse 90, irregularly irregular, respiratory rate 20, temperature 97.3. LUNGS: Clear. CVS: S1, S2 regular. ABDOMEN: Soft. ASSESSMENT: 1. Atrial fibrillation. 2. Chronic kidney disease. 3. Nephrolithiasis. 4. Anxiety and depression. PLAN: Continue current medication. Monitor the patient. Mikel Marc MD
[2018-04-20] MEDS: Sevelamer Carb 2.4 gm/Packet PO SCH ×2 (09:00→21:28)
--- NOTE | 2018-04-20 09:41 | CP.PCM.PN ---
Subjective - Date & Time of Evaluation Date of Evaluation: 04/20/18 Time of Evaluation: 07:00 - Subjective Subjective: GENERAL SURGERY PROGRESS NOTE FOR DR. STUART Patient seen and examined at bedside. Yesterday, he vomited, X-ray done which showed possible post op ileus. Since then, patient has not had any more nausea or vomiting. He is passing flatus but no BM over past 2 days. He is ambulating in the halls. Reports pain in RLQ. Objective - Vital Signs/Intake and Output Vital Signs (last 24 hours): Temp Pulse Resp BP Pulse Ox 97.8 F 90 20 101/36 L 95 04/20/18 08:08 04/20/18 08:08 04/20/18 08:08 04/20/18 08:08 04/20/18 08:08 - Medications Medications: Current Medications Acetaminophen (Tylenol 325mg Tab) 650 mg PO Q6H PRN PRN Reason: Pain, Mild (1-3) Alprazolam (Xanax) 0.5 mg PO Q12H PRN PRN Reason: Anxiety Benzocaine/Menthol (Cepacol Sore Throat) 1 maggie MT Q4H PRN PRN Reason: Sore Throat Last Admin: 04/15/18 17:16 Dose: 1 maggie Calcium Acetate (Phoslo) 667 mg PO TID [facility] Last Admin: 04/19/18 17:59 Dose: 667 mg Diltiazem HCl (Cardizem) 60 mg PO Q8H [facility] Last Admin: 04/20/18 05:29 Dose: Not Given Heparin Sodium (Porcine) (Heparin) 5,000 units SC Q8 [facility] Lactulose (Enulose) 20 gm PO Q8H PRN PRN Reason: Constipation Last Admin: 04/19/18 18:01 Dose: 20 gm Ondansetron HCl (Zofran Inj) 4 mg IVP Q4 PRN PRN Reason: Nausea/Vomiting Last Admin: 04/19/18 10:47 Dose: 4 mg Pantoprazole Sodium (Protonix Ec Tab) 40 mg PO DAILY [facility] Last Admin: 04/19/18 09:19 Dose: 40 mg Sevelamer Carbonate (Renvela) 2.4 gm PO BIDCC [facility] Last Admin: 04/19/18 17:59 Dose: 2.4 gm Tamsulosin HCl (Flomax) 0.4 mg PO DAILY [facility] Last Admin: 04/19/18 09:19 Dose: 0.4 mg Tramadol HCl (Ultram) 50 mg PO Q6H PRN PRN Reason: Pain, moderate (4-7) Last Admin: 04/19/18 21:18 Dose: 50 mg - Labs Labs: 04/19/18 15:01 04/19/18 15:01 PT 14.1 SECONDS (9.7-12.2) H 04/13/18 07:40 INR 1.3 04/13/18 07:40 APTT 37 SECONDS (21-34) H 04/13/18 07:40 - Constitutional Appears: Non-toxic, No Acute Distress - Head Exam Head Exam: ATRAUMATIC, NORMAL INSPECTION - Eye Exam Eye Exam: EOMI, Normal appearance - Respiratory Exam Respiratory Exam: NORMAL BREATHING PATTERN. absent: Respiratory Distress - Cardiovascular Exam Cardiovascular Exam: +S1, +S2 - GI/Abdominal Exam GI & Abdominal Exam: Soft, Tenderness (tender in RLQ). absent: Distended, Firm, Guarding, Rigid, Rebound Additional comments: Colten in place over midline incision - Neurological Exam Neurological Exam: Alert, Awake, Oriented x3 - Psychiatric Exam Psychiatric exam: Normal Affect, Normal Mood - Skin Skin Exam: Dry, Normal Color, Warm Assessment and Plan - Assessment and Plan (Free Text) Assessment: 48M s/p Ex-Lap with ileocecectomy for gangrenous segment of cecum; POD#7 Path: cecum w/ transmural gangrenous necrosis w/ associated marked acute inflammation, edema, scattered fibrin thrombi, severe acute serositis, normal appendix Possible post op ileus Plan: - Advance to regular diet today - Passing flatus, Monitor for BM, colace added - Percocet DCed yesterday, Pt on tramadol - Encourage ambulation, continue PT - Encourage IS use - DVT PPx: Heparin SQ - Discussed plan with Dr. Lisa Barth PGY-4
[2018-04-20] MEDS: Pantoprazole 40 mg EC Tab PO SCH (09:54)
[2018-04-20 12:23] LABS: HEMOGLOBIN 10.2 g/dL (12.0-18.0); MEAN CELL VOLUME 95.2 fL (80.0-94.0); MEAN CORPUSCULAR HEMOGLOBIN 31.8 pg (27.0-31.0); MEAN CORPUSCULAR HGB CONC 33.4 g/dL (33.0-37.0); MEAN PLATELET VOLUME 8.7 fL (7.2-11.7); RBC 3.2 Mil/uL (4.40-5.90); RED CELL DISTRIBUTION WIDTH 15.7 % (11.5-14.5); WHITE BLOOD COUNT 5.5 K/uL (4.8-10.8)
[2018-04-20 12:52] LABS: CALCIUM 9.1 mg/dl (8.6-10.4)
--- NOTE | 2018-04-20 13:13 | CP.PCM.PN ---
Subjective - Date & Time of Evaluation Date of Evaluation: 04/20/18 Time of Evaluation: 13:12 - Subjective Subjective: same abdominal pains for HD now no other complaint for obstructive series Objective - Vital Signs/Intake and Output Vital Signs (last 24 hours): Temp Pulse Resp BP Pulse Ox 97.8 F 84 20 101/36 L 95 04/20/18 08:08 04/20/18 11:30 04/20/18 08:08 04/20/18 08:08 04/20/18 08:08 - Medications Medications: Current Medications Acetaminophen (Tylenol 325mg Tab) 650 mg PO Q6H PRN PRN Reason: Pain, Mild (1-3) Alprazolam (Xanax) 0.5 mg PO Q12H PRN PRN Reason: Anxiety Benzocaine/Menthol (Cepacol Sore Throat) 1 maggie MT Q4H PRN PRN Reason: Sore Throat Last Admin: 04/15/18 17:16 Dose: 1 maggie Calcium Acetate (Phoslo) 667 mg PO TID [facility] Last Admin: 04/20/18 09:55 Dose: 667 mg Diltiazem HCl (Cardizem) 60 mg PO Q8H [facility] Last Admin: 04/20/18 05:29 Dose: Not Given Docusate Sodium (Colace) 100 mg PO BID [facility] Last Admin: 04/20/18 10:53 Dose: 100 mg Heparin Sodium (Porcine) (Heparin) 5,000 units SC Q8 [facility] Last Admin: 04/20/18 09:56 Dose: 5,000 units Lactulose (Enulose) 20 gm PO Q8H PRN PRN Reason: Constipation Last Admin: 04/20/18 09:55 Dose: 20 gm Ondansetron HCl (Zofran Inj) 4 mg IVP Q4 PRN PRN Reason: Nausea/Vomiting Last Admin: 04/19/18 10:47 Dose: 4 mg Pantoprazole Sodium (Protonix Ec Tab) 40 mg PO DAILY [facility] Last Admin: 04/20/18 09:54 Dose: 40 mg Sevelamer Carbonate (Renvela) 2.4 gm PO BIDCC [facility] Last Admin: 04/20/18 09:00 Dose: 2.4 gm Tamsulosin HCl (Flomax) 0.4 mg PO DAILY [facility] Last Admin: 04/20/18 09:54 Dose: 0.4 mg Tramadol HCl (Ultram) 50 mg PO Q6H PRN PRN Reason: Pain, moderate (4-7) Last Admin: 04/20/18 09:54 Dose: 50 mg - Labs Labs: 04/20/18 12:14 04/20/18 12:14 PT 14.1 SECONDS (9.7-12.2) H 04/13/18 07:40 INR 1.3 04/13/18 07:40 APTT 37 SECONDS (21-34) H 04/13/18 07:40 - Constitutional Appears: In Acute Distress, Chronically Ill - Head Exam Head Exam: ATRAUMATIC, NORMAL INSPECTION - Eye Exam Eye Exam: EOMI, Normal appearance - Neck Exam Neck Exam: Normal Inspection. absent: Tenderness - Respiratory Exam Respiratory Exam: Clear to Ausculation Bilateral, NORMAL BREATHING PATTERN - Cardiovascular Exam Cardiovascular Exam: REGULAR RHYTHM, +S1 - GI/Abdominal Exam GI & Abdominal Exam: Soft, Tenderness - Extremities Exam Extremities Exam: Normal Inspection. absent: Tenderness - Neurological Exam Neurological Exam: Awake, CN II-XII Intact - Skin Skin Exam: Dry, Warm Assessment and Plan (1) Hyperkalemia Status: Acute (2) End stage renal disease Status: Acute (3) Hyperphosphatemia Status: Acute (4) S/p nephrectomy Status: Acute (5) SBE (subacute bacterial endocarditis) Status: Acute (6) Xanthogranulomatous pyelonephritis Status: Acute (7) Nephrolithiasis Status: Chronic - Assessment and Plan (Free Text) Plan: dialysis MWF A[facility]
--- NOTE | 2018-04-20 21:54 | CP.PCM.PN ---
Subjective - Subjective Subjective: dictated Objective - Vital Signs/Intake and Output Vital Signs (last 24 hours): Temp Pulse Resp BP Pulse Ox 98.8 F 91 H 20 110/47 L 97 04/20/18 21:30 04/20/18 21:30 04/20/18 21:30 04/20/18 21:30 04/20/18 21:30 - Medications Medications: Current Medications Acetaminophen (Tylenol 325mg Tab) 650 mg PO Q6H PRN PRN Reason: Pain, Mild (1-3) Alprazolam (Xanax) 0.5 mg PO Q12H PRN PRN Reason: Anxiety Benzocaine/Menthol (Cepacol Sore Throat) 1 maggie MT Q4H PRN PRN Reason: Sore Throat Last Admin: 04/15/18 17:16 Dose: 1 maggie Calcium Acetate (Phoslo) 667 mg PO TID [facility] Last Admin: 04/20/18 21:27 Dose: 667 mg Diltiazem HCl (Cardizem) 60 mg PO Q8H [facility] Last Admin: 04/20/18 21:27 Dose: 60 mg Docusate Sodium (Colace) 100 mg PO BID [facility] Last Admin: 04/20/18 21:27 Dose: 100 mg Heparin Sodium (Porcine) (Heparin) 5,000 units SC Q8 [facility] Last Admin: 04/20/18 21:27 Dose: 5,000 units Lactulose (Enulose) 20 gm PO Q8H PRN PRN Reason: Constipation Last Admin: 04/20/18 09:55 Dose: 20 gm Ondansetron HCl (Zofran Inj) 4 mg IVP Q4 PRN PRN Reason: Nausea/Vomiting Last Admin: 04/19/18 10:47 Dose: 4 mg Pantoprazole Sodium (Protonix Ec Tab) 40 mg PO DAILY [facility] Last Admin: 04/20/18 09:54 Dose: 40 mg [facility]velamer [facility] Last Admin: 04/20/18 21:28 Dose: 2.4 gm Tamsulosin HCl (Flomax) 0.4 mg PO DAILY [facility] Last Admin: 04/20/18 09:54 Dose: 0.4 mg Tramadol HCl (Ultram) 50 mg PO Q6H PRN PRN Reason: Pain, moderate (4-7) Last Admin: 04/20/18 09:54 Dose: 50 mg - Labs Labs: 04/20/18 12:14 04/20/18 12:14 PT 14.1 SECONDS (9.7-12.2) H 04/13/18 07:40 INR 1.3 04/13/18 07:40 APTT 37 SECONDS (21-34) H 04/13/18 07:40
--- NOTE | 2018-04-20 23:16 | PN ---
DATE: 04/20/2018 SUBJECTIVE: The patient is currently undergoing hemodialysis. Nausea and vomiting have resolved. PHYSICAL EXAMINATION: VITAL SIGNS: Blood pressure 114/39, heart rate 84, temperature 97.4, respirations 18. HEENT: Normocephalic. CHEST: Clear. HEART: S1 and S2, irregular. EXTREMITIES: No edema. LABORATORY DATA: Today's hemoglobin and hematocrit 10.1 and 30.5, white count and platelet count are within normal limit. Today's BUN and creatinine prior to hemodialysis are 83 and 12.5. Glucose 135. ASSESSMENT: 1. Status post ileocecectomy for gangrenous changes. 2. End-stage renal disease, on hemodialysis. 3. Persistent atrial fibrillation. RECOMMENDATIONS: Continue Cardizem 60 mg every 8 hours, heparin 5000 units every 8 hours, PhosLo one tablet t.i.d. Mc Miner MD
--- NOTE | 2018-04-21 03:33 | PN ---
DATE: 04/20/2018 SUBJECTIVE: Wei Frank is having some right lower quadrant pain. Surgery is aware of that. No fever. No chills. No nausea or vomiting. The patient was seen by Surgery today, and it seemed like that there is no true finding. PHYSICAL EXAMINATION: VITAL SIGNS: BP is 110/47, pulse 91, respiratory rate 20, temperature 98.8. LUNGS: Clear. CARDIOVASCULAR SYSTEM: S1 and S2, irregularly irregular. ABDOMEN: Postop. Bowel sounds present. ASSESSMENT: 1. Acute appendicitis. 2. Atrial fibrillation, new onset. 3. Hepatitis C. 4. Chronic kidney disease, on hemodialysis. 5. Hypertension. PLAN: Continue current medication. Monitor the patient. Mikel Marc MD
[2018-04-21] MEDS: Sevelamer Carb 2.4 gm/Packet PO SCH ×2 (08:09→18:05)
--- NOTE | 2018-04-21 09:54 | CP.PCM.PN ---
Subjective - Date & Time of Evaluation Date of Evaluation: 04/21/18 Time of Evaluation: 07:00 - Subjective Subjective: GENERAL SURGERY PROGRESS NOTE FOR DR. TSUART Patient seen and examined at bedside. Pt reports not eating much because he has nausea after eating. He is passing flatus but no BM over past few days. He is ambulating in the halls. Reports continued pain localized to the RLQ. Objective - Vital Signs/Intake and Output Vital Signs (last 24 hours): Temp Pulse Resp BP Pulse Ox 98.1 F 83 20 99/39 L 96 04/21/18 04:07 04/21/18 04:23 04/21/18 04:07 04/21/18 04:07 04/21/18 04:07 - Medications Medications: Current Medications Acetaminophen (Tylenol 325mg Tab) 650 mg PO Q6H PRN PRN Reason: Pain, Mild (1-3) Alprazolam (Xanax) 0.5 mg PO Q12H PRN PRN Reason: Anxiety Apixaban (Eliquis) 2.5 mg PO BID [facility] Last Admin: 04/20/18 22:13 Dose: Not Given Benzocaine/Menthol (Cepacol Sore Throat) 1 maggie MT Q4H PRN PRN Reason: Sore Throat Last Admin: 04/15/18 17:16 Dose: 1 maggie Calcium Acetate (Phoslo) 667 mg PO TID [facility] Last Admin: 04/20/18 21:27 Dose: 667 mg Diltiazem HCl (Cardizem) 60 mg PO Q8H [facility] Last Admin: 04/20/18 21:27 Dose: 60 mg Docusate Sodium (Colace) 100 mg PO BID [facility] Last Admin: 04/20/18 21:27 Dose: 100 mg Lactulose (Enulose) 20 gm PO Q8H PRN PRN Reason: Constipation Last Admin: 04/20/18 09:55 Dose: 20 gm Ondansetron HCl (Zofran Inj) 4 mg IVP Q4 PRN PRN Reason: Nausea/Vomiting Last Admin: 04/19/18 10:47 Dose: 4 mg Pantoprazole Sodium (Protonix Ec Tab) 40 mg PO DAILY [facility] Last Admin: 04/20/18 09:54 Dose: 40 mg [facility]velamer Carbonate ([facility] Last Admin: 04/21/18 08:09 Dose: 2.4 gm Tamsulosin HCl (Flomax) 0.4 mg PO DAILY [facility] Last Admin: 04/20/18 09:54 Dose: 0.4 mg Tramadol HCl (Ultram) 50 mg PO Q6H PRN PRN Reason: Pain, moderate (4-7) Last Admin: 04/21/18 07:42 Dose: 50 mg - Labs Labs: 04/20/18 12:14 04/20/18 12:14 PT 14.1 SECONDS (9.7-12.2) H 04/13/18 07:40 INR 1.3 04/13/18 07:40 APTT 37 SECONDS (21-34) H 04/13/18 07:40 - Constitutional Appears: Non-toxic, No Acute Distress - Head Exam Head Exam: ATRAUMATIC, NORMAL INSPECTION - Eye Exam Eye Exam: EOMI, Normal appearance - Respiratory Exam Respiratory Exam: NORMAL BREATHING PATTERN. absent: Respiratory Distress - Cardiovascular Exam Cardiovascular Exam: +S1, +S2 - GI/Abdominal Exam GI & Abdominal Exam: Soft, Tenderness (tender in RLQ). absent: Distended, Firm, Guarding, Rigid, Rebound Additional comments: Colten in place - Neurological Exam Neurological Exam: Alert, Awake, Oriented x3 - Psychiatric Exam Psychiatric exam: Normal Affect, Normal Mood - Skin Skin Exam: Dry, Warm Assessment and Plan - Assessment and Plan (Free Text) Assessment: 48M s/p Ex-Lap with ileocecectomy for gangrenous segment of cecum; POD#8 Path: cecum w/ transmural gangrenous necrosis w/ associated marked acute inflammation, edema, scattered fibrin thrombi, severe acute serositis, normal appendix Possible post op ileus Plan: - Continue to monitor for BM - CT Abd/Pelvis w/ PO contrast ordered to due persistent localized pain in RLQ - Encourage ambulation, continue PT - Encourage IS use - DVT PPx: Heparin SQ - Discussed plan with Dr. Lisa Barth PGY-4
--- NOTE | 2018-04-21 09:55 | CP.PCM.PN ---
Subjective - Date & Time of Evaluation Date of Evaluation: 04/21/18 Time of Evaluation: 09:53 - Subjective Subjective: pt seen and examined in bed, comfortable ate breakfast, no nausea or vomiting reports some abdominal pain Had hd yesterday ROS- as per HPI, other than that 10 point ROS negative Objective - Vital Signs/Intake and Output Vital Signs (last 24 hours): Temp Pulse Resp BP Pulse Ox 98.1 F 83 20 99/39 L 96 04/21/18 04:07 04/21/18 04:23 04/21/18 04:07 04/21/18 04:07 04/21/18 04:07 - Medications Medications: Current Medications Acetaminophen (Tylenol 325mg Tab) 650 mg PO Q6H PRN PRN Reason: Pain, Mild (1-3) Alprazolam (Xanax) 0.5 mg PO Q12H PRN PRN Reason: Anxiety Apixaban (Eliquis) 2.5 mg PO BID [facility] Last Admin: 04/20/18 22:13 Dose: Not Given Benzocaine/Menthol (Cepacol Sore Throat) 1 maggie MT Q4H PRN PRN Reason: Sore Throat Last Admin: 04/15/18 17:16 Dose: 1 maggie Calcium Acetate (Phoslo) 667 mg PO TID [facility] Last Admin: 04/20/18 21:27 Dose: 667 mg Diltiazem HCl (Cardizem) 60 mg PO Q8H [facility] Last Admin: 04/20/18 21:27 Dose: 60 mg Docusate Sodium (Colace) 100 mg PO BID [facility] Last Admin: 04/20/18 21:27 Dose: 100 mg Lactulose (Enulose) 20 gm PO Q8H PRN PRN Reason: Constipation Last Admin: 04/20/18 09:55 Dose: 20 gm Ondansetron HCl (Zofran Inj) 4 mg IVP Q4 PRN PRN Reason: Nausea/Vomiting Last Admin: 04/19/18 10:47 Dose: 4 mg Pantoprazole Sodium (Protonix Ec Tab) 40 mg PO DAILY [facility] Last Admin: 04/20/18 09:54 Dose: 40 mg Sevelamer Carbonate ([facility] Last Admin: 04/21/18 08:09 Dose: 2.4 gm Tamsulosin HCl (Flomax) 0.4 mg PO DAILY [facility] Last Admin: 04/20/18 09:54 Dose: 0.4 mg Tramadol HCl (Ultram) 50 mg PO Q6H PRN PRN Reason: Pain, moderate (4-7) Last Admin: 04/21/18 07:42 Dose: 50 mg - Labs Labs: 04/20/18 12:14 04/20/18 12:14 PT 14.1 SECONDS (9.7-12.2) H 04/13/18 07:40 INR 1.3 04/13/18 07:40 APTT 37 SECONDS (21-34) H 04/13/18 07:40 - Constitutional Appears: Well, Non-toxic - Head Exam Head Exam: ATRAUMATIC, NORMOCEPHALIC - Eye Exam Eye Exam: EOMI, PERRL - ENT Exam ENT Exam: Mucous Membranes Moist - Neck Exam Neck Exam: Full ROM, Normal Inspection - Respiratory Exam Respiratory Exam: Clear to Ausculation Bilateral. absent: Rhonchi, Wheezes - Cardiovascular Exam Cardiovascular Exam: REGULAR RHYTHM, +S1, +S2 - GI/Abdominal Exam GI & Abdominal Exam: Soft. absent: Tenderness Additional comments: incision intact - Extremities Exam Extremities Exam: Full ROM. absent: Pedal Edema - Neurological Exam Neurological Exam: Alert, Awake, Oriented x3 - Psychiatric Exam Psychiatric exam: Normal Affect, Normal Mood - Skin Skin Exam: Normal Color, Warm Assessment and Plan (1) Hyperkalemia Status: Acute (2) Abdominal pain Status: Acute (3) Chronic pyelonephritis Status: Acute (4) ESRD (end stage renal disease) Status: Acute (5) SBE (subacute bacterial endocarditis) Status: Acute (6) Anemia Status: Chronic - Assessment and Plan (Free Text) Plan: HD MWF post abdominal surgery recovering well pain management next HD monday
[2018-04-21] MEDS: Pantoprazole 40 mg EC Tab PO SCH (10:32)
[2018-04-21] MEDS ORDERED: Iohexol 240 (50 ml) PO ONE ×2 (10:45→13:00)
--- NOTE | 2018-04-21 17:40 | CT ---
Date of service: 04/21/2018 PROCEDURE: CT Abdomen and Pelvis with contrast HISTORY: R/O ABSCESS RLQ COMPARISON: Comparison made with CT scan abdomen and pelvis 04/12/2018. TECHNIQUE: Contiguous helical/transaxial sections of the abdomen and pelvis performed following oral contrast. Intravenous contrast not injected for this exam. Additional 2D sagittal and coronal reformats generated Radiation dose: Total exam DLP = 540.97 mGy-cm. This CT exam was performed using one or more of the following dose reduction techniques: Automated exposure control, adjustment of the mA and/or kV according to patient size, and/or use of iterative reconstruction technique. FINDINGS: LOWER THORAX: Heart is enlarged. No significant pericardial effusion. Densely calcified mitral valve. Dense tiny left and smaller right-sided effusions with mild bibasilar atelectasis left greater than right.. No basilar pneumothorax LIVER: Liver is enlarged measuring nearly 20 cm in CC dimension. GALLBLADDER AND BILE DUCTS: Cholelithiasis.. PANCREAS: Unremarkable. No gross lesion or ductal dilatation. SPLEEN: Spleen is mildly enlarged measuring over 13 cm in CC dimension. ADRENALS: No adrenal lesions are identified. KIDNEYS AND URETERS: Left nephrectomy. There are multiple large staghorn type calculi seen within the collecting system and posterior cortex of the upper/mid and lower pole right kidney . There also appears to be low-attenuation appearance of the of the mid to lower pole renal parenchyma possibly related to chronic obstruction. In situ right ureteral stent head above pain on 2nd VASCULATURE: Unremarkable. No aortic aneurysm. No aortic atherosclerotic calcification or mural plaque present. BOWEL: Apparent postoperative anastomosis in the region of the cecum cecum which exhibits slight thick-walled appearance and induration with surrounding fluid-postoperative a changes. No definitive loculated collection is seen.. The stomach is distended with of fluid debris and air. There are a few mildly distended loops of small bowel in the left mid abdomen possibly representing an ileus. There also appears to be opacification of the colon which Lane excludes a complete obstruction. APPENDIX: Appendix is not visualized on this exam PERITONEUM: There appears to be a moderate amount of free fluid within the pelvis as well as adjacent to and surrounding the cecal region.. Clinical correlation recommended.. LYMPH NODES: Unremarkable. No enlarged lymph nodes. BLADDER: Urinary bladder is incompletely distended which presumably in part accounts for thick-walled appearance. Muscular hypertrophy may contribute. REPRODUCTIVE: Prostate gland unremarkable. BONES: No acute fracture. OTHER FINDINGS: None. IMPRESSION: There is a moderate amount of free fluid within the pelvis and small amount of free fluid surrounding an anastomosis in the cecal region with mild wall thickening and/or induration.... No evidence of acute complete bowel obstruction with oral contrast material extending into the colon to the level of the rectum. Few distended loops of small bowel possibly representing ileus.. No definitive loculated fluid collection seen. Left nephrectomy. Staghorn calculi right kidney with low-attenuation appearance of the mid to lower pole renal parenchyma possibly due to chronic obstruction. In situ right ureteral stent. Hepatomegaly. Splenomegaly. Cholelithiasis. Tiny left and trace right-sided effusion with mild atelectasis left greater than right. Cardiomegaly. See above discussion for additional details and findings.
--- NOTE | 2018-04-21 19:08 | OP ---
PROCEDURE DATE: 04/13/2018 TIME OF SURGERY: 1419 hours. PREOPERATIVE DIAGNOSIS: Abdominal pain rule out appendicitis. POSTOPERATIVE DIAGNOSIS: Necrotic segment of cecum, no appendicitis. PROCEDURE: Diagnostic laparoscopy, exploratory laparotomy with ileocecectomy. SURGEON: Doug Gonzalez MD POULTRY FARMWORKER: Dr. Carr, PGY-3, . ANESTHESIA: General endotracheal. ANESTHESIOLOGIST: Dr. Victoria. SPECIMEN REMOVED: Ileocecum. ESTIMATED BLOOD LOSS: 100 mL DRAINS: None. DESCRIPTION OF PROCEDURE: An informed consent was obtained. The patient was brought to the OR and prepped and draped in sterile manner. A 5-mm infraumbilical incision was made and pneumoperitoneum was established with a Veress needle. Once the abdomen was insufflated to 15 mmHg, a 5-mm scope was inserted under direct vision into the abdomen. An attempt was then made to insert a 5-mm trocar suprapubically, however, due to dense adhesion, this was not possible. Due to the inability to visualize vital structures, a decision was made to convert laparoscopic case to open. The trocars were removed, the abdomen was desufflated and a midline incision was used to connect the 2 trocar incision. Once inside the abdomen, the cecum and the appendix were identified after adhesion were lysed sharply under direct vision. A 4 x 5 cm area of necrotic cecal wall was noted on the antimesenteric border. The appendix was also inspected and did not looked to be inflamed. The rest of the small bowel as well as the right colon and left colon were all inspected for any other areas of necrotic bowel and none were found. At this time, the decision was made to perform an ileocecectomy. Using electrocautery, the right colon was freed from its peritoneal attachments along the avascular line of Toldt from the cecum to half way up the ascending colon. Once enough bowel was mobilized, points of transection were selected proximally and distally. The bowel was divided with SULEMAN stapler. The proximal and distal segments were brought into apposition and found to lie comfortably next to each other without tension. Two stay sutures of 3-0 silk were placed to approximate the antimesenteric borders of the ileum and ascending colon. Enterotomies were made on the antimesenteric corner of the staple line on the ileum and ascending colon, and the linear cutting stapler was inserted and fired. Hemostasis was checked on the staple line and the anastomosis was felt to be adequate. The TA was then used to close the enterotomies. The anastomosis was checked and found to be intact and widely patent. Mesenteric defect was closed with interrupted 3-0 Vicryl sutures. The abdomen was irrigated and hemostasis was achieved. The fascia was then closed with a running PDS suture. The skin was closed with skin napoleon. All counts were correct at the end of the procedure. The patient tolerated the procedure well and was taken to PACU in stable condition. Merced Carr DO Doug Gonzalez MD
--- NOTE | 2018-04-21 22:55 | PN ---
DATE: 04/21/2018 SUBJECTIVE: The patient is experiencing abdominal pain and nausea. PHYSICAL EXAMINATION: VITAL SIGNS: Blood pressure 108/43, heart rate 85, temperature 97.5, and respirations 20. HEENT: Normocephalic. CHEST: Clear. EXTREMITIES: No edema. LABORATORY DATA: Abdomen and pelvis CT scan done today revealed moderate amount of free fluid within the pelvis and small amount of free fluids surrounding the anastomosis in the cecal region and mild wall thickening and/or induration. No evidence of acute complete bowel obstruction with oral contrast, extending to the colon to the level of the rectum. No evidence of fluid. ASSESSMENT: 1. Status post ileocecectomy. 2. History of aortic wall endocarditis with aortic insufficiency. 3. Borderline troponin elevation. 4. End-stage renal disease, on hemodialysis. 5. Atrial fibrillation. RECOMMENDATIONS: Resume Eliquis 2.5 mg twice a day. Continue current IV Zofran. Surgical followup is recommended. Mc Miner MD
--- NOTE | 2018-04-22 04:43 | PN ---
DATE: 04/21/2018 SUBJECTIVE: The patient, Wei Frank, has been having right lower quadrant abdominal pain. He is status post appendectomy on the right side. On the CAT scan of his abdomen, there is moderate amount of free fluid within the pelvis and small amount of free fluid surrounding an anastomosis in the cecal region with mild wall thickening and/or induration. There is no evidence of acute bowel obstruction, left-sided nephrectomy, and positive staghorn calculus in the right kidney. He has been seen by Surgery. PHYSICAL EXAMINATION: VITAL SIGNS: BP 99/56, pulse 91, respiratory rate 20, and temperature 97.5. LUNGS: Clear. CARDIOVASCULAR SYSTEM: S1, S2, regular. ABDOMEN: Soft. ASSESSMENT: 1. Nephrolithiasis, end-stage renal disease. 2. Acute appendicitis, status post resection. 3. Hepatitis C. 4. Anxiety and depression. PLAN: Continue current medication. Monitor the patient. Mikel Marc MD
[2018-04-22 08:01] LABS: HEMOGLOBIN 10.1 g/dL (12.0-18.0); MEAN CELL VOLUME 95.9 fL (80.0-94.0); MEAN CORPUSCULAR HEMOGLOBIN 31.6 pg (27.0-31.0); MEAN CORPUSCULAR HGB CONC 32.9 g/dL (33.0-37.0); RBC 3.2 Mil/uL (4.40-5.90); RED CELL DISTRIBUTION WIDTH 15.9 % (11.5-14.5); WHITE BLOOD COUNT 5.3 K/uL (4.8-10.8)
[2018-04-22] MEDS: Sevelamer Carb 2.4 gm/Packet PO SCH ×2 (08:01→17:34)
[2018-04-22 08:12] LABS: CALCIUM 9.1 mg/dl (8.6-10.4)
[2018-04-22] MEDS: Pantoprazole 40 mg EC Tab PO SCH (11:35)
--- NOTE | 2018-04-22 14:10 | CP.PCM.PN ---
Subjective - Date & Time of Evaluation Date of Evaluation: 04/22/18 Time of Evaluation: 07:40 - Subjective Subjective: Surgery progress note for Dr. Gonzalez Pt seen and examined this AM. Pt complains of persistent RLQ pain and that he hasn't had a BM for several days. States he is still passing gas and denies any recent nausea or vomiting. Objective - Vital Signs/Intake and Output Vital Signs (last 24 hours): Temp Pulse Resp BP Pulse Ox 97.9 F 86 20 96/50 L 97 04/22/18 07:00 04/22/18 10:40 04/22/18 10:40 04/22/18 10:40 04/22/18 07:00 - Medications Medications: Current Medications Acetaminophen (Tylenol 325mg Tab) 650 mg PO Q6H PRN PRN Reason: Pain, Mild (1-3) Alprazolam (Xanax) 0.5 mg PO Q12H PRN PRN Reason: Anxiety Apixaban (Eliquis) 2.5 mg PO BID [facility] Last Admin: 04/22/18 11:35 Dose: 2.5 mg Benzocaine/Menthol (Cepacol Sore Throat) 1 maggie MT Q4H PRN PRN Reason: Sore Throat Last Admin: 04/15/18 17:16 Dose: 1 maggie Calcium Acetate (Phoslo) 667 mg PO TID [facility] Last Admin: 04/22/18 13:51 Dose: Not Given Diltiazem HCl (Cardizem) 60 mg PO Q8H [facility] Last Admin: 04/22/18 13:51 Dose: Not Given Docusate Sodium (Colace) 100 mg PO BID [facility] Last Admin: 04/22/18 11:35 Dose: 100 mg Lactulose (Enulose) 20 gm PO Q8H PRN PRN Reason: Constipation Last Admin: 04/22/18 11:40 Dose: 20 gm Ondansetron HCl (Zofran Inj) 4 mg IVP Q4 PRN PRN Reason: Nausea/Vomiting Last Admin: 04/19/18 10:47 Dose: 4 mg Pantoprazole Sodium (Protonix Ec Tab) 40 mg PO DAILY [facility] Last Admin: 04/22/18 11:35 Dose: 40 mg Sevelamer Carbon[facility]) [facility] Last Admin: 04/22/18 08:01 Dose: 2.4 gm Tamsulosin HCl (Flomax) 0.4 mg PO DAILY [facility] Last Admin: 04/22/18 11:36 Dose: 0.4 mg Tramadol HCl (Ultram) 50 mg PO Q6H PRN PRN Reason: Pain, moderate (4-7) Last Admin: 04/22/18 08:53 Dose: 50 mg - Labs Labs: 04/22/18 07:47 04/22/18 07:47 PT 14.1 SECONDS (9.7-12.2) H 04/13/18 07:40 INR 1.3 04/13/18 07:40 APTT 37 SECONDS (21-34) H 04/13/18 07:40 - Constitutional Appears: Non-toxic, No Acute Distress - Head Exam Head Exam: ATRAUMATIC, NORMOCEPHALIC - Eye Exam Eye Exam: Normal appearance. absent: Conjunctival injection, Scleral icterus - ENT Exam ENT Exam: Mucous Membranes Moist, Normal Oropharynx - Respiratory Exam Respiratory Exam: NORMAL BREATHING PATTERN. absent: Accessory Muscle Use, Respiratory Distress - GI/Abdominal Exam GI & Abdominal Exam: Soft, Tenderness (moderate RLQ tenderness to palpation). absent: Distended Additional comments: incision well approximated with napoleon, no erythema or swelling - Extremities Exam Extremities Exam: absent: Calf Tenderness, Pedal Edema, Tenderness - Neurological Exam Neurological Exam: Alert, Awake, Oriented x3 - Psychiatric Exam Psychiatric exam: Flat Affect, Normal Mood - Skin Skin Exam: Dry, Normal Color, Warm Assessment and Plan - Assessment and Plan (Free Text) Assessment: 48M POD#9 s/p ileocecectomy with constipation Plan: Continue soft diet Switch to pericolace from colace, continue lactulose Recommend urology consult for stent of the right ureter and recently anuria--possibly contributing to symptoms Encourage ambulation Avoid narcotics as possible Discussed with Dr. Lisa England, PGY2
[2018-04-22] MEDS: Docusate-Senna 50 mg-8.6 mg Tab PO SCH (17:34)
--- NOTE | 2018-04-22 20:25 | PN ---
DATE: 04/22/2018 SUBJECTIVE: The patient is still in atrial fibrillation, less abdominal pain. He tolerated light breakfast. PHYSICAL EXAMINATION VITAL SIGNS: Blood pressure 96/50, heart rate 86, temperature 97.9, respirations 20. LABORATORY DATA: Today's hemoglobin and hematocrit are 10.1 and 30.7. White count and platelet count are within normal limits. Today's BUN and creatinine are 59 and 10.[address]. Abdomen and pelvis CT scan, moderate amount of free fluid within the pelvis and small amount of free fluid surrounding the anastomosis in the cecal region with mild wall thickening and/or induration. The patient was evaluated by the surgical lead today. ASSESSMENT: 1. Status post ileocecectomy. 2. Chronic atrial fibrillation. 3. End-stage renal disease, on hemodialysis. RECOMMENDATIONS: Continue Eliquis 2.5 mg twice a day, which was started today. Continue PhosLo one tablet t.i.d. Mc Miner MD
--- NOTE | 2018-04-22 22:44 | CP.PCM.PN ---
Subjective - Subjective Subjective: dictated Objective - Vital Signs/Intake and Output Vital Signs (last 24 hours): Temp Pulse Resp BP Pulse Ox 97.6 F 24 L 20 107/47 L 97 04/22/18 15:15 04/22/18 16:04 04/22/18 15:15 04/22/18 15:15 04/22/18 15:15 Intake and Output: 04/22/18 04/23/18 18:59 06:59 Intake Total 480 Balance 480 - Medications Medications: Current Medications Acetaminophen (Tylenol 325mg Tab) 650 mg PO Q6H PRN PRN Reason: Pain, Mild (1-3) Alprazolam (Xanax) 0.5 mg PO Q12H PRN PRN Reason: Anxiety Apixaban (Eliquis) 2.5 mg PO BID [facility] Last Admin: 04/22/18 17:31 Dose: 2.5 mg Benzocaine/Menthol (Cepacol Sore Throat) 1 maggie MT Q4H PRN PRN Reason: Sore Throat Last Admin: 04/15/18 17:16 Dose: 1 maggie Calcium Acetate (Phoslo) 667 mg PO TID [facility] Last Admin: 04/22/18 17:34 Dose: Not Given Diltiazem HCl (Cardizem) 60 mg PO Q8H [facility] Last Admin: 04/22/18 21:05 Dose: 60 mg Lactulose (Enulose) 20 gm PO Q8H PRN PRN Reason: Constipation Last Admin: 04/22/18 11:40 Dose: 20 gm Ondansetron HCl (Zofran Inj) 4 mg IVP Q4 PRN PRN Reason: Nausea/Vomiting Last Admin: 04/22/18 17:30 Dose: 4 mg Pantoprazole Sodium (Protonix Ec Tab) 40 mg PO DAILY [facility] Last Admin: 04/22/18 11:35 Dose: 40 mg Senna/Docusate Sodium (Senokot S 50 Mg-8.6 Mg) 2 tab PO BID [facility] Last Admin: 04/22/18 17:34 Dose: Not Given Sevelamer Carbonate ([facility]a) [facility] Last Admin: 04/22/18 17:34 Dose: Not Given Tamsulosin HCl (Flomax) 0.4 mg PO DAILY [facility] Last Admin: 04/22/18 11:36 Dose: 0.4 mg Tramadol HCl (Ultram) 50 mg PO Q6H PRN PRN Reason: Pain, moderate (4-7) Last Admin: 04/22/18 17:30 Dose: 50 mg - Labs Labs: 04/22/18 07:47 04/22/18 07:47 PT 14.1 SECONDS (9.7-12.2) H 04/13/18 07:40 INR 1.3 04/13/18 07:40 APTT 37 SECONDS (21-34) H 04/13/18 07:40
--- NOTE | 2018-04-23 02:18 | PN ---
DATE: 04/22/2018 SUBJECTIVE: The patient complained of right lower quadrant pain and has not had a bowel movement for the last several days although he is passing gas. He denies any nausea or vomiting. PHYSICAL EXAMINATION: VITAL SIGNS: Blood pressure 96/50, pulse 86, respiratory rate 20, temperature 97.9. LUNGS: Clear. CARDIOVASCULAR EXAM: S1 and S2 are regular. ABDOMEN: Positive right lower quadrant tenderness with guarding. ASSESSMENT: 1. Right lower quadrant pain postoperatively. 2. Chronic kidney disease and nephrolithiasis, on hemodialysis. 3. Hepatitic C. PLAN: Antibiotics. Surgical followup. Monitor the patient. Mikel Marc MD
[2018-04-23] MEDS: Sevelamer Carb 2.4 gm/Packet PO SCH (09:00)
[2018-04-23] MEDS: Pantoprazole 40 mg EC Tab PO SCH (09:32)
[2018-04-23] MEDS: Docusate-Senna 50 mg-8.6 mg Tab PO SCH (09:32)
--- NOTE | 2018-04-23 10:34 | CP.PCM.PN ---
Subjective - Date & Time of Evaluation Date of Evaluation: 04/23/18 Time of Evaluation: 10:33 - Subjective Subjective: seen on hd comfortable sleeping c/o abdominal pain, poor appetite bp low, estimated uf 500cc Objective - Vital Signs/Intake and Output Vital Signs (last 24 hours): Temp Pulse Resp BP Pulse Ox 98.0 F 87 18 104/54 L 96 04/23/18 07:00 04/23/18 07:30 04/23/18 07:00 04/23/18 07:00 04/23/18 07:00 - Medications Medications: Current Medications Acetaminophen (Tylenol 325mg Tab) 650 mg PO Q6H PRN PRN Reason: Pain, Mild (1-3) Alprazolam (Xanax) 0.5 mg PO Q12H PRN PRN Reason: Anxiety Apixaban (Eliquis) 2.5 mg PO BID [facility] Last Admin: 04/23/18 09:32 Dose: 2.5 mg Benzocaine/Menthol (Cepacol Sore Throat) 1 maggie MT Q4H PRN PRN Reason: Sore Throat Last Admin: 04/15/18 17:16 Dose: 1 maggie Calcium Acetate (Phoslo) 667 mg PO TID [facility] Last Admin: 04/23/18 09:32 Dose: 667 mg Diltiazem HCl (Cardizem) 60 mg PO Q8H [facility] Last Admin: 04/23/18 05:22 Dose: Not Given Lactulose (Enulose) 20 gm PO Q8H PRN PRN Reason: Constipation Last Admin: 04/22/18 11:40 Dose: 20 gm Ondansetron HCl (Zofran Inj) 4 mg IVP Q4 PRN PRN Reason: Nausea/Vomiting Last Admin: 04/22/18 17:30 Dose: 4 mg Pantoprazole Sodium (Protonix Ec Tab) 40 mg PO DAILY [facility] Last Admin: 04/23/18 09:32 Dose: 40 mg Senna/Docusate Sodium (Senokot S 50 Mg-8.6 Mg) 2 tab PO BID [facility] Last Admin: 04/23/18 09:32 Dose: 2 tab Sevelamer Carbonate (Renvela) 2.4 gm PO BID[facility] Last Admin: 04/23/18 09:00 Dose: 2.4 gm Tamsulosin HCl (Flomax) 0.4 mg PO DAILY [facility] Last Admin: 04/23/18 09:32 Dose: 0.4 mg Tramadol HCl (Ultram) 50 mg PO Q6H PRN PRN Reason: Pain, moderate (4-7) Last Admin: 04/23/18 09:35 Dose: 50 mg - Labs Labs: 04/22/18 07:47 04/22/18 07:47 PT 14.1 SECONDS (9.7-12.2) H 04/13/18 07:40 INR 1.3 04/13/18 07:40 APTT 37 SECONDS (21-34) H 04/13/18 07:40 - Constitutional Appears: Non-toxic, No Acute Distress, Chronically Ill - Head Exam Head Exam: NORMAL INSPECTION, NORMOCEPHALIC - Eye Exam Eye Exam: Normal appearance, PERRL - ENT Exam ENT Exam: Mucous Membranes Moist, Normal Exam - Neck Exam Neck Exam: Full ROM, Normal Inspection - Respiratory Exam Respiratory Exam: Clear to Ausculation Bilateral - Cardiovascular Exam Cardiovascular Exam: REGULAR RHYTHM, RRR - GI/Abdominal Exam GI & Abdominal Exam: Distended, Soft, Tenderness (diffusely) - Extremities Exam Extremities Exam: Normal Inspection - Neurological Exam Neurological Exam: Alert, Awake, Oriented x3 - Psychiatric Exam Psychiatric exam: Normal Affect, Normal Mood - Skin Skin Exam: Intact, Warm Assessment and Plan (1) Atrial fibrillation Status: Acute (2) Hyperkalemia Status: Acute (3) Chronic pyelonephritis Status: Acute (4) ESRD (end stage renal disease) Status: Acute (5) Hypertension Status: Chronic - Assessment and Plan (Free Text) Assessment: maintain hd mwf bowel regimen per surgery will need rt nephrectomy per urology lower cardizem dose
--- NOTE | 2018-04-23 13:11 | CP.PCM.PN ---
Subjective - Date & Time of Evaluation Date of Evaluation: 04/23/18 Time of Evaluation: 08:00 - Subjective Subjective: Surgery: Dr. Gonzalez Pt seen and examined. No acute overnight events. Pt states he has an episode of vomiting yesterday after dinner, still with R sided abdominal pain. Admits to having a BM after suppository yesterday. Denies fevers/chills. Objective - Vital Signs/Intake and Output Vital Signs (last 24 hours): Temp Pulse Resp BP Pulse Ox 97.4 F L 83 15 84/44 L 95 04/23/18 11:00 04/23/18 12:30 04/23/18 12:00 04/23/18 12:30 04/23/18 12:30 - Medications Medications: Current Medications Acetaminophen (Tylenol 325mg Tab) 650 mg PO Q6H PRN PRN Reason: Pain, Mild (1-3) Alprazolam (Xanax) 0.5 mg PO Q12H PRN PRN Reason: Anxiety Apixaban (Eliquis) 2.5 mg PO BID [facility] Last Admin: 04/23/18 09:32 Dose: 2.5 mg Benzocaine/Menthol (Cepacol Sore Throat) 1 maggie MT Q4H PRN PRN Reason: Sore Throat Last Admin: 04/15/18 17:16 Dose: 1 maggie Calcium Acetate (Phoslo) 667 mg PO TID [facility] Last Admin: 04/23/18 09:32 Dose: 667 mg Diltiazem HCl (Cardizem) 30 mg PO Q8H [facility] Last Admin: 04/23/18 10:58 Dose: Not Given Lactulose (Enulose) 20 gm PO Q8H PRN PRN Reason: Constipation Last Admin: 04/22/18 11:40 Dose: 20 gm Ondansetron HCl (Zofran Inj) 4 mg IVP Q4 PRN PRN Reason: Nausea/Vomiting Last Admin: 04/22/18 17:30 Dose: 4 mg Pantoprazole Sodium (Protonix Ec Tab) 40 mg PO DAILY [facility] Last Admin: 04/23/18 09:32 Dose: 40 mg Senna/Docusate Sodium (Senokot S 50 Mg-8.6 Mg) 2 tab PO BID [facility] Last Admin: 04/23/18 09:32 Dose: 2 tab Sevelamer Carbonate (Renvela) 2.4 gm PO BIDCC [facility] Last Admin: 04/23/18 09:00 Dose: 2.4 gm Tamsulosin HCl (Flomax) 0.4 mg PO DAILY [facility] Last Admin: 04/23/18 09:32 Dose: 0.4 mg Tramadol HCl (Ultram) 50 mg PO Q6H PRN PRN Reason: Pain, moderate (4-7) Last Admin: 04/23/18 09:35 Dose: 50 mg - Labs Labs: 04/22/18 07:47 04/22/18 07:47 PT 14.1 SECONDS (9.7-12.2) H 04/13/18 07:40 INR 1.3 04/13/18 07:40 APTT 37 SECONDS (21-34) H 04/13/18 07:40 - Constitutional Appears: Well, No Acute Distress - Head Exam Head Exam: ATRAUMATIC, NORMOCEPHALIC - Eye Exam Eye Exam: Normal appearance - ENT Exam ENT Exam: Mucous Membranes Moist - Respiratory Exam Respiratory Exam: NORMAL BREATHING PATTERN - Cardiovascular Exam Cardiovascular Exam: RRR - GI/Abdominal Exam GI & Abdominal Exam: Soft, Tenderness (RLQ, midline incision with napoleon, C/D/I ). absent: Distended, Guarding, Rebound - Neurological Exam Neurological Exam: Alert, Awake, Oriented x3 - Skin Skin Exam: Dry, Warm Assessment and Plan - Assessment and Plan (Free Text) Assessment: 48M s/p ileocecectomy for necrotic segment of cecum; POD# 10 Plan: - tolerating diet - dulcolax suppository and stool softeners PRN for constipation - repeat CT abdomen with post-op changes but no findings concerning for leak or abscess - no plan for further surgical intervention at this time - d/w Dr. Lisa Carr
[2018-04-23 14:12] VITALS: O2SAT 95
[2018-04-23 14:50] VITALS: BP 85/45; PULSE 90; RESP 15; TEMP 97.5
--- NOTE | 2018-04-23 16:37 | CP.PCM.PN ---
Subjective - Date & Time of Evaluation Date of Evaluation: 04/23/18 Time of Evaluation: 14:00 - Subjective Subjective: Patient seen today after HD , states feels better and tolerating diet wants to go home vss and labs reviewed - afebrile d/w surgical team cleared for discharge home from surgical standpoint and f/u with Dr. Gonzalez office in 2 weeks for f/u visit for wound check D/w Dr. marc ,cleared fro discharge home today and f/u with Dr. Marc offic ein 1 week and continue HD as scheduled patientinstucted to returns to ED if symptoms return or any worsening of symptoms will give RX for 20 tab percocet to mange post operative acute pain and discussed all side effect with patient , Objective - Vital Signs/Intake and Output Vital Signs (last 24 hours): Temp Pulse Resp BP Pulse Ox 97.5 F L 90 15 85/45 L 95 04/23/18 14:30 04/23/18 14:30 04/23/18 14:30 04/23/18 14:30 04/23/18 13:30 - Medications Medications: Current Medications Acetaminophen (Tylenol 325mg Tab) 650 mg PO Q6H PRN PRN Reason: Pain, Mild (1-3) Alprazolam (Xanax) 0.5 mg PO Q12H PRN PRN Reason: Anxiety Apixaban (Eliquis) 2.5 mg PO BID [facility] Last Admin: 04/23/18 09:32 Dose: 2.5 mg Benzocaine/Menthol (Cepacol Sore Throat) 1 maggie MT Q4H PRN PRN Reason: Sore Throat Last Admin: 04/15/18 17:16 Dose: 1 maggie Calcium Acetate (Phoslo) 667 mg PO TID [facility] Last Admin: 04/23/18 09:32 Dose: 667 mg Diltiazem HCl (Cardizem) 30 mg PO Q8H [facility] Last Admin: 04/23/18 10:58 Dose: Not Given Lactulose (Enulose) 20 gm PO Q8H PRN PRN Reason: Constipation Last Admin: 04/22/18 11:40 Dose: 20 gm Ondansetron HCl (Zofran Inj) 4 mg IVP Q4 PRN PRN Reason: Nausea/Vomiting Last Admin: 04/22/18 17:30 Dose: 4 mg Pantoprazole Sodium (Protonix Ec Tab) 40 mg PO DAILY [facility] Last Admin: 04/23/18 09:32 Dose: 40 mg Senna/Docusate Sodium (Senokot S 50 Mg-8.6 Mg) 2 tab PO BID [facility] Last Admin: 04/23/18 09:32 Dose: 2 tab Sevelamer Carbonate ([facility]a) [facility] Last Admin: 04/23/18 09:00 Dose: 2.4 gm Tamsulosin HCl (Flomax) 0.4 mg PO DAILY [facility] Last Admin: 04/23/18 09:32 Dose: 0.4 mg Tramadol HCl (Ultram) 50 mg PO Q6H PRN PRN Reason: Pain, moderate (4-7) Last Admin: 04/23/18 09:35 Dose: 50 mg - Labs Labs: 04/22/18 07:47 04/22/18 07:47 PT 14.1 SECONDS (9.7-12.2) H 04/13/18 07:40 INR 1.3 04/13/18 07:40 APTT 37 SECONDS (21-34) H 04/13/18 07:40
--- NOTE | 2018-04-23 20:10 | PN ---
DATE: 04/23/2018 SUBJECTIVE: The patient is currently undergoing hemodialysis. He has mild abdominal discomfort and nausea. PHYSICAL EXAMINATION: VITAL SIGNS: Blood pressure 85/45, heart rate 90, temperature 97.5, respirations 15. HEENT: Pale conjunctivae. CHEST: Clear. HEART: S1, S2 regular. EXTREMITIES: No edema. ASSESSMENT AND PLAN: 1. Persistent atrial fibrillation. 2. Status post ileocecectomy. 3. Aortic insufficiency. 4. End-stage renal disease, on hemodialysis. RECOMMENDATIONS: Continue Eliquis 2.5 mg twice a day, PhosLo 1 tablet t.i.d., and Zofran 4 mg intravenously every 4 hours p.r.n. Mc Miner MD
--- NOTE | 2018-04-23 23:18 | CP.PCM.DIS ---
Provider - Provider Date of Admission: 04/12/18 18:45 Attending physician: Mikel Marc MD Hospital Course - Lab Results Lab Results: Micro Results 04/17/18 07:29 Naris MRSA Culture - Final MRSA NOT DETECTED 04/13/18 08:00 Abdomen Gram Stain - Final 04/13/18 08:00 Abdomen Wound Culture - Final No growth. 04/12/18 19:00 Blood Blood Culture - Final NO GROWTH AFTER 5 DAYS 04/12/18 19:00 Blood Gram Stain - Final TEST NOT PERFORMED 04/12/18 16:06 Blood Blood Culture - Final NO GROWTH AFTER 5 DAYS 04/12/18 16:06 Blood Gram Stain - Final TEST NOT PERFORMED 04/13/18 19:51 Nose MRSA Culture (Admit) - Final MRSA NOT DETECTED Most Recent Lab Values WBC 5.3 K/uL (4.8-10.8) 04/22/18 07:47 RBC 3.20 Mil/uL (4.40-5.90) L 04/22/18 07:47 Hgb 10.1 g/dL (12.0-18.0) L 04/22/18 07:47 Hct 30.7 % (35.0-51.0) L 04/22/18 07:47 MCV 95.9 fL (80.0-94.0) H 04/22/18 07:47 MCH 31.6 pg (27.0-31.0) H 04/22/18 07:47 MCHC 32.9 g/dL (33.0-37.0) L 04/22/18 07:47 RDW 15.9 % (11.5-14.5) H 04/22/18 07:47 Plt Count 156 K/uL (130-400) 04/22/18 07:47 MPV 9.0 fL (7.2-11.7) 04/22/18 07:47 Neut % (Auto) 76.0 % (50.0-75.0) H 04/19/18 15:01 Lymph % (Auto) 14.2 % (20.0-40.0) L 04/19/18 15:01 Rapides % (Auto) 8.1 % (0.0-10.0) 04/19/18 15:01 Eos % (Auto) 1.3 % (0.0-4.0) 04/19/18 15:01 Baso % (Auto) 0.4 % (0.0-2.0) 04/19/18 15:01 Neut # (Auto) 4.2 K/uL (1.8-7.0) 04/19/18 15:01 Lymph # (Auto) 0.8 K/uL (1.0-4.3) L 04/19/18 15:01 Rapides # (Auto) 0.5 K/uL (0.0-0.8) 04/19/18 15:01 Eos # (Auto) 0.1 K/uL (0.0-0.7) 04/19/18 15:01 Baso # (Auto) 0.0 K/uL (0.0-0.2) 04/19/18 15:01 Neutrophils % (Manual) 91 % (50-75) H 04/14/18 13:43 Band Neutrophils % 1 % (0-2) 04/14/18 13:43 Lymphocytes % (Manual) 5 % (20-40) L 04/14/18 13:43 Monocytes % (Manual) 3 % (0-10) 04/14/18 13:43 Eosinophils % (Manual) 2 % (0-4) 04/12/18 16:31 Platelet Estimate Normal (NORMAL) 04/14/18 13:43 Large Platelets Present 04/14/18 13:43 Polychromasia Slight 04/14/18 13:43 Hypochromasia (manual) Slight 04/14/18 13:43 Poikilocytosis (manual Slight 04/14/18 13:43 Anisocytosis (manual) Slight 04/14/18 13:43 Ovalocytes Slight 04/14/18 13:43 PT 14.1 SECONDS (9.7-12.2) H 04/13/18 07:40 INR 1.3 04/13/18 07:40 APTT 37 SECONDS (21-34) H 04/13/18 07:40 Puncture Site Rra 04/19/18 14:25 pCO2 34 mm/Hg (35-45) L 04/19/18 14:25 pO2 71 mm/Hg (80-100) L 04/19/18 14:25 HCO3 26.6 mmol/L (21-28) 04/19/18 14:25 ABG pH 7.48 (7.35-7.45) H 04/19/18 14:25 ABG Total CO2 26.3 mmol/L (22-28) 04/19/18 14:25 ABG O2 Saturation 96.4 % (95-98) 04/19/18 14:25 ABG Base Excess 2.2 mmol/L (-2.0-3.0) 04/19/18 14:25 Maykel Test Pos 04/19/18 14:25 ABG Potassium 4.3 mmol/L (3.6-5.2) 04/19/18 14:25 A-a O2 Difference 36.0 mm/Hg 04/19/18 14:25 Respiratory Index 0.5 04/19/18 14:25 Sodium 133.0 mmol/l (132-148) 04/19/18 14:25 Chloride 98.0 mmol/L (98-107) 04/19/18 14:25 Glucose 133 mg/dl (75-110) H 04/19/18 14:25 Lactate 1.0 mmol/L (0.7-2.1) 04/19/18 14:25 FiO2 21.0 % 04/19/18 14:25 Sodium 130 mmol/L (132-148) L 04/22/18 07:47 Potassium 4.8 mmol/L (3.6-5.2) 04/22/18 07:47 Chloride 90 mmol/L (98-107) L 04/22/18 07:47 Carbon Dioxide 24 mmol/L (22-30) 04/22/18 07:47 Anion Gap 21 (10-20) H 04/22/18 07:47 BUN 59 mg/dL (9-20) H 04/22/18 07:47 Creatinine 10.6 mg/dL (0.8-1.5) H* 04/22/18 07:47 Est GFR ( Amer) 6 04/22/18 07:47 Est GFR (Non-Af Amer) 5 04/22/18 07:47 Random Glucose 104 mg/dL (75-110) 04/22/18 07:47 Lactic Acid 1.6 mmol/L (0.7-2.1) 04/14/18 05:48 Calcium 9.1 mg/dl (8.6-10.4) 04/22/18 07:47 Phosphorus 9.9 mg/dL (2.5-4.5) H 04/17/18 06:08 Magnesium 2.2 mg/dL (1.6-2.3) 04/17/18 06:08 Total Bilirubin 0.8 mg/dL (0.2-1.3) 04/19/18 15:01 AST 77 U/L (17-59) H D 04/19/18 15:01 ALT 192 U/L (21-72) H D 04/19/18 15:01 Alkaline Phosphatase 104 U/L (38-126) 04/19/18 15:01 Total Creatine Kinase 47 U/L (55-170) L 04/18/18 01:13 CK-MB (Mass) 1.13 ng/mL (0.0-3.38) 04/18/18 01:13 Troponin I 0.1230 ng/mL (0.00-0.120) H* 04/18/18 01:13 Total Protein 7.0 g/dL (6.3-8.3) 04/19/18 15:01 Albumin 3.4 g/dL (3.5-5.0) L 04/19/18 15:01 Globulin 3.6 gm/dL (2.2-3.9) 04/19/18 15:01 Albumin/Globulin Ratio 0.9 (1.0-2.1) L 04/19/18 15:01 Lipase 22 U/L (23-300) L 04/12/18 16:31 TSH 3rd Generation 0.99 mIU/L (0.46-4.68) 04/17/18 12:48 Arterial Blood Potassium 4.3 mmol/L (3.6-5.2) 04/19/18 14:25 Discharge Exam - Head Exam Head Exam: ATRAUMATIC, NORMOCEPHALIC Discharge Plan - Discharge Medications Prescriptions: diltiaZEM [Cardizem] 30 mg PO Q8H #90 tab Apixaban [Eliquis] 2.5 mg PO BID #60 tab Tamsulosin [Flomax] 0.4 mg PO DAILY #30 cap oxyCODONE/Acetaminophen [Percocet 5/325 mg Tab] 2 tab PO Q4H PRN #20 tab PRN Reason: prn for pain Calcium Acetate [Phoslo] 667 mg PO TID #90 tab Sevelamer Carbonate [Renvela] 2.4 gm PO BIDCC #60 packet Docusate Sodium/Sennosides A [Senokot S 50 MG-8.6 MG] 2 tab PO BID #30 tab Alprazolam [Xanax] 0.5 mg PO Q12H PRN #10 tab PRN Reason: Anxiety - Follow Up Plan Condition: GOOD Disposition: HOME/ ROUTINE Instructions: Dialysis Diet , Appendectomy, Open Surgery (DC), End Stage Kidney Disease (DC), Managing Pain After Surgery Additional Instructions: Please follow up with Dr. Marc office in 1 week Please HD as scheduled Please follow up with Dr. Mckeon office in 2 weeks- call and make appointment ( f/u visit for wound ) Continue medication as per med. rec. Referrals: Doug Gonzalez MD [Staff Provider] - Mikel Marc MD [Staff Provider] -
--- NOTE | 2018-04-24 06:31 | DS ---
ADMISSION DIAGNOSIS: Acute appendicitis. DISCHARGE DIAGNOSES: Acute appendicitis; nephrolithiasis; chronic kidney disease, on hemodialysis; hepatitis C; anxiety and depression. HISTORY OF PRESENT ILLNESS: This is a 48-year-old male with history of nephrolithiasis; end-stage renal disease, on hemodialysis; hepatitis C; anxiety and depression; who came in with right lower quadrant pain and he was found to have acute appendicitis. The patient underwent resection. Postoperatively, he had some abdominal pain which improved with antibiotics. He was treated conservatively. LABORATORY DATA: The patient's sodium 130, potassium 4.8, chloride 90, bicarb 24, BUN 59, and creatinine 0.6. The patient's WBC 5.3, hemoglobin 10.1, hematocrit 30.7, and platelets 156. PHYSICAL EXAMINATION: VITAL SIGNS: Blood pressure 85/45, pulse is 90, respiratory rate 20, and temperature 97.5. PLAN: Discharge the patient. Mikel Marc MD
== END 2018-04-23 17:10 | disposition home or self-care (01) | DRG 221 ==
LOC: C.ER 15:50 → C.5S 18:45 → C.9S 04-13 14:39 → C.9I 04-13 14:49 → C.6T 04-17 20:30
PROVIDERS: ADMIT Internal Medicine; ATTEND Internal Medicine
PROC: 5A1D70Z Performance of Urinary Filtration, Intermittent, Less than 6 Hours Per Day (ICD-10-PCS; 2018-04-16)
PROC: 0DTC0ZZ Resection of Ileocecal Valve, Open Approach (ICD-10-PCS; principal; 2018-04-21)
PROC: 0WJP4ZZ Inspection of Gastrointestinal Tract, Percutaneous Endoscopic Approach (ICD-10-PCS; 2018-04-21)
DX: K55.049 Acute infarction of large intestine, extent unspecified (principal); I96 Gangrene, not elsewhere classified; I12.0 Hypertensive chronic kidney disease with stage 5 chronic kidney disease or end stage renal disease; N18.6 End stage renal disease; N11.9 Chronic tubulo-interstitial nephritis, unspecified; K35.80 Unspecified acute appendicitis; I35.1 Nonrheumatic aortic (valve) insufficiency; E87.5 Hyperkalemia; B19.20 Unspecified viral hepatitis C without hepatic coma; I48.1 Persistent atrial fibrillation; N20.0 Calculus of kidney; Z87.442 Personal history of urinary calculi; Z86.711 Personal history of pulmonary embolism; F41.9 Anxiety disorder, unspecified; D63.8 Anemia in other chronic diseases classified elsewhere; F32.9 Major depressive disorder, single episode, unspecified; F17.210 Nicotine dependence, cigarettes, uncomplicated; Z91.11 Patient's noncompliance with dietary regimen

== ENCOUNTER 2018-04-30 13:10 | Inpatient (IN) | payer OTHER ==
[2018-04-30 13:10] VITALS: BMI 25.2
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
[2018-04-30] MEDS ORDERED: Iohexol 240 (50 ml) PO STA (14:10)
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
[2018-04-30] MEDS ORDERED: Iohexol 240 (50 ml) ONE (14:20)
[2018-04-30 14:31] LABS: BASO # 0.1 K/uL (0.0-0.2); EOS # 0.1 K/uL (0.0-0.7); EOS % 1.1 % (0.0-4.0); HEMOGLOBIN 10.5 g/dL (12.0-18.0); LYMPH # 1.1 K/uL (1.0-4.3); LYMPH % 21.5 % (20.0-40.0); MEAN CELL VOLUME 94.4 fL (80.0-94.0); MEAN CORPUSCULAR HEMOGLOBIN 31.2 pg (27.0-31.0); MEAN PLATELET VOLUME 8.3 fL (7.2-11.7); MONO # 0.4 K/uL (0.0-0.8); MONO % 7.1 % (0.0-10.0); NEUT # 3.6 K/uL (1.8-7.0); NEUT % 69.3 % (50.0-75.0); RBC 3.38 Mil/uL (4.40-5.90); RED CELL DISTRIBUTION WIDTH 16.2 % (11.5-14.5); WHITE BLOOD COUNT 5.1 K/uL (4.8-10.8)
[2018-04-30 14:37] LABS: INR 1.4
--- NOTE | 2018-04-30 14:42 | RAD ---
Date of service: 04/30/2018 HISTORY: Chest pain COMPARISON: 04/12/2018. FINDINGS: LUNGS: No active pulmonary disease. PLEURA: No significant pleural effusion identified, no pneumothorax apparent. CARDIOVASCULAR: No atherosclerotic calcification present Normal. OSSEOUS STRUCTURES: No significant abnormalities. VISUALIZED UPPER ABDOMEN: Normal. OTHER FINDINGS: None. IMPRESSION: No active disease. No significant interval change compared to the prior examination(s).
[2018-04-30 15:00] LABS: ALB/GLOB RATIO 0.9 (1.0-2.1); ALBUMIN 3.3 g/dL (3.5-5.0)
[2018-04-30 15:49] LABS: TROPONIN I 0.335 ng/mL (0.00-0.120)
[2018-04-30] MEDS ORDERED: Iohexol 300 100 ML IJ ONE (17:40)
--- NOTE | 2018-04-30 18:23 | CT ---
Date of service: 04/30/2018 PROCEDURE: CT Abdomen and Pelvis with contrast HISTORY: Postoperative abdominal pain. Prior left nephrectomy. COMPARISON: 04/21/2018. CT abdomen and pelvis. 04/12/2018 CT abdomen and pelvis TECHNIQUE: Intravenous contrast dose: 95 cc Omnipaque 300 Radiation dose: Total exam DLP = 611.58 mGy-cm. This CT exam was performed using one or more of the following dose reduction techniques: Automated exposure control, adjustment of the mA and/or kV according to patient size, and/or use of iterative reconstruction technique. FINDINGS: LOWER THORAX: Trace pleural effusions. Progressive consolidative changes/atelectasis at the lung bases. LIVER: Unremarkable. No gross lesion or ductal dilatation. GALLBLADDER AND BILE DUCTS: Unremarkable. PANCREAS: Unremarkable. No gross lesion or ductal dilatation. SPLEEN: Unremarkable. ADRENALS: Unremarkable. No mass. KIDNEYS AND URETERS: Status post left nephrectomy. Staghorn calculus again identified in the right kidney. Distention of the right collecting system and renal cortical atrophy remain stable findings. Stable double-J stent catheter position on the right. VASCULATURE: Unremarkable. No aortic aneurysm. Atherosclerotic calcification and mural plaque present. Findings are seen throughout the aorta BOWEL: No significant interval change compared to the prior examination(s). Diffusely sclerotic osseous structures primarily thoracolumbar vertebral bodies consistent with renal osteodystrophy. APPENDIX: Prior appendectomy. PERITONEUM: Modest increase in intra-abdominal primarily right upper quadrant fluid as well as fluid in the pelvis. LYMPH NODES: Unremarkable. No enlarged lymph nodes. BLADDER: Unremarkable. REPRODUCTIVE: Unremarkable. BONES: No acute fracture. OTHER FINDINGS: None. IMPRESSION: Modest interval increase in volume of right upper quadrant and pelvic ascites. Slight increase in atelectasis and bilateral pleural effusions. Stable findings with respect to the right kidney, ureter and indwelling stable position of double-J stent catheter on the right. No drainable collection identified.
[2018-04-30] MEDS ORDERED: AMPicillin 2 GM in Sodium Chloride 0.9% 100 ML IV ONE (21:08)
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
[2018-05-01 00:03] LABS: CK-MB 1.22 ng/mL (0.0-3.38); TROPONIN I 0.471 ng/mL (0.00-0.120)
[2018-05-01] MEDS: Oxycodone/Acetaminophen 5/325 mg Tab PO PRN ×2 (00:32→08:51)
--- NOTE | 2018-05-01 04:13 | HP ---
CHIEF COMPLIANT: Chest pain x1 day. HISTORY OF PRESENT ILLNESS: This is a 48-year-old male, well known to me with history of anxiety, depression, chronic hepatitis C. The patient is on hemodialysis for several years because of end-stage kidney disease as per the consequence of nephrolithiasis, extensive bilateral staghorn calculus, and he had nephrectomy on the left side. In the usual state of health, he is ambulatory. He has a heart murmur. He is independent in activities of daily living with history of frequent multiple hospitalizations at [facility], [place]. The patient left the hospital a few days ago where he was treated for acute appendicitis with appendectomy. The patient went home. He developed since yesterday substernal chest pain, dull, non radiating, associated with diaphoresis and dizziness. The patient denies any cough, sore throat, running nose. The patient denies any history of dyspepsia, nausea, vomiting, or diarrhea. The patient denies any history of hematuria or pyuria. He denies any sneezing, itchy eyes, itchy nose. He denies any history of trauma, fall, loss of consciousness. No history of seizure-like activity. He denies getting drunk; however, he has been smoking. He also has some epigastric pain. He denies any nausea or vomiting. PAST MEDICAL HISTORY: Hepatitis C; alcoholism; end-stage kidney disease, on hemodialysis; nephrolithiasis; and heart murmurs. PHYSICAL EXAMINATION: GENERAL: An middle-aged male, in no acute distress. VITAL SIGNS: Blood pressure 95/39, pulse 79, respiratory rate 18, temperature 97.9. SKIN: No bruises. No purpura. No petechia. No ecchymosis. HEENT: Atraumatic and normocephalic. Negative pallor. Negative jaundice. Extraocular movements are intact. NECK: Supple. No JVD. No lymph node. No thyromegaly. No carotid bruits. CHEST WALL: Bilateral symmetrical expansion. No tenderness. No deformity. LUNGS: Bilaterally clear. No rales. No rhonchi. CARDIOVASCULAR SYSTEM: PMI in the fifth intercostal space. No heave. No thrill. S1 and S2 are regular. ABDOMEN: Soft, nontender. Bowel sounds are positive. RECTAL: No masses. No bleed. EXTREMITIES: No clubbing, cyanosis, or edema. CENTRAL NERVOUS SYSTEM: Awake, alert, and oriented x3. Cranial nerves II through XII are normal. Power 5/5 x4. Plantars are downgoing. ASSESSMENT: 1. Chest pain, rule out myocardial infarction. 2. Chronic kidney disease, rule out septicemia. Chronic kidney disease is due to nephrolithiasis. 3. Nephrolithiasis. 4. Status post appendectomy with postoperative abdominal pain. PLAN: Admit. Detailed orders written. Seen and examined. Mikel Marc MD
[2018-05-01] MEDS ORDERED: Sevelamer Carb 2.4 gm/Packet PO SCH (08:00)
[2018-05-01 08:22] VITALS: BP 95/52; PULSE 78; RESP 18; TEMP 98.7; O2SAT 99
[2018-05-01] MEDS ORDERED: Pantoprazole 40 mg EC Tab PO SCH (10:00)
[2018-05-01] MEDS ORDERED: Docusate-Senna 50 mg-8.6 mg Tab PO SCH (10:00)
--- NOTE | 2018-05-01 10:26 | CP.PCM.PN ---
Subjective - Date & Time of Evaluation Date of Evaluation: 05/01/18 Time of Evaluation: 10:25 - Subjective Subjective: seen and examined 'blood cx + at dialysis unit - streptococcus Objective - Vital Signs/Intake and Output Vital Signs (last 24 hours): Temp Pulse Resp BP Pulse Ox 98.7 F 78 18 95/52 L 99 05/01/18 07:00 05/01/18 07:00 05/01/18 07:00 05/01/18 07:00 05/01/18 07:00 - Medications Medications: Current Medications Acetaminophen (Tylenol 325mg Tab) 650 mg PO Q6H PRN PRN Reason: Pain, Mild (1-3) Alprazolam (Xanax) 0.5 mg PO Q12H PRN PRN Reason: Anxiety Last Admin: 05/01/18 06:07 Dose: 0.5 mg Apixaban (Eliquis) 2.5 mg PO BID [facility] Last Admin: 04/30/18 19:15 Dose: Not Given Calcium Acetate (Phoslo) 667 mg PO TIDCC [facility] Last Admin: 05/01/18 08:45 Dose: 667 mg Diltiazem HCl (Cardizem) 30 mg PO Q8 [facility] Last Admin: 05/01/18 06:07 Dose: 30 mg Ferrous Sulfate (Feosol) 325 mg PO BID [facility] Influenza Virus Vaccine (Fluzone Quad [id number]) 60 mcg IM .ONCE ONE Stop: 05/03/18 10:01 Oxycodone/Acetaminophen (Percocet 5/325 Mg Tab) 2 tab PO Q4H PRN PRN Reason: prn for pain Stop: 05/03/18 19:04 Last Admin: 05/01/18 08:51 Dose: 2 tab Pantoprazole Sodium (Protonix Ec Tab) 40 mg PO DAILY [facility] Rosuvastatin Calcium (Crestor) 10 mg PO HS [facility] Last Admin: 04/30/18 22:13 Dose: Not Given Senna/Docusate Sodium (Senokot S 50 Mg-8.6 Mg) 2 tab PO BID [facility]amer [facility] Last Admin: 05/01/18 08:45 Dose: 2.4 gm Tamsulosin HCl (Flomax) 0.4 mg PO DAILY [facility] - Labs Labs: 04/30/18 14:19 04/30/18 14:19 PT 15.0 SECONDS (9.7-12.2) H 04/30/18 14:19 INR 1.4 04/30/18 14:19 APTT 36 SECONDS (21-34) H 04/30/18 14:19 - Constitutional Appears: Non-toxic, No Acute Distress - Head Exam Head Exam: NORMAL INSPECTION, NORMOCEPHALIC - Eye Exam Eye Exam: Normal appearance, PERRL - ENT Exam ENT Exam: Mucous Membranes Moist, Normal Exam - Neck Exam Neck Exam: Full ROM, Normal Inspection - Respiratory Exam Respiratory Exam: Clear to Ausculation Bilateral, NORMAL BREATHING PATTERN - Cardiovascular Exam Cardiovascular Exam: REGULAR RHYTHM, RRR - GI/Abdominal Exam GI & Abdominal Exam: Soft, Normal Bowel Sounds Additional comments: surgical scar tenderness RLQ - Extremities Exam Extremities Exam: Full ROM, Normal Inspection - Back Exam Back Exam: NORMAL INSPECTION - Neurological Exam Neurological Exam: Alert, Awake, Oriented x3 - Psychiatric Exam Psychiatric exam: Normal Affect, Normal Mood - Skin Skin Exam: Dry, Intact Assessment and Plan (1) Abdominal pain Status: Acute (2) ESRD (end stage renal disease) Status: Acute (3) Abdominal pain Status: Acute (4) Anemia Status: Acute (5) Bacteremia Status: Acute - Assessment and Plan (Free Text) Assessment: hd tts ID onboard, antibiotics to cover strep. source? sensitivities pending recommend repeat blood cultures
--- NOTE | 2018-05-01 10:51 | CP.PCM.PN ---
Subjective - Date & Time of Evaluation Date of Evaluation: 05/01/18 Time of Evaluation: 07:00 - Subjective Subjective: GENERAL SURGERY PROGRESS NOTE FOR DR. LIU (covering for Dr. Gonzalez) Patient seen and examined at bedside. States has continued abdominal pain in RLQ. Had nausea overnight. + Troponins Objective - Vital Signs/Intake and Output Vital Signs (last 24 hours): Temp Pulse Resp BP Pulse Ox 98.7 F 78 18 95/52 L 99 05/01/18 07:00 05/01/18 07:00 05/01/18 07:00 05/01/18 07:00 05/01/18 07:00 - Medications Medications: Current Medications Acetaminophen (Tylenol 325mg Tab) 650 mg PO Q6H PRN PRN Reason: Pain, Mild (1-3) Alprazolam (Xanax) 0.5 mg PO Q12H PRN PRN Reason: Anxiety Last Admin: 05/01/18 06:07 Dose: 0.5 mg Apixaban (Eliquis) 2.5 mg PO BID [facility] Last Admin: 05/01/18 10:37 Dose: 2.5 mg Calcium Acetate (Phoslo) 667 mg PO TIDCC [facility] Last Admin: 05/01/18 08:45 Dose: 667 mg Diltiazem HCl (Cardizem) 30 mg PO Q8 [facility] Last Admin: 05/01/18 06:07 Dose: 30 mg Ferrous Sulfate (Feosol) 325 mg PO BID [facility] Last Admin: 05/01/18 10:38 Dose: 325 mg Influenza Virus Vaccine (Fluzone Quad [id number]) 60 mcg IM .ONCE ONE Stop: 05/03/18 10:01 Oxycodone/Acetaminophen (Percocet 5/325 Mg Tab) 2 tab PO Q4H PRN PRN Reason: prn for pain Stop: 05/03/18 19:04 Last Admin: 05/01/18 08:51 Dose: 2 tab Pantoprazole Sodium (Protonix Ec Tab) 40 mg PO DAILY [facility] Last Admin: 05/01/18 10:38 Dose: 40 mg Rosuvastatin Calcium (Crestor) 10 mg PO HS [facility] Last Admin: 04/30/18 22:13 Dose: Not Given Senna/Docusate Sodium (Senokot S 50 Mg-8.6 Mg) 2 tab PO BID [facility] Last Admin: 05/01/18 10:38 Dose: 2 tab Sevelamer Carbonate (Renvela) 2.4 gm PO BIDCC [facility] Last Admin: 05/01/18 08:45 Dose: 2.4 gm Tamsulosin HCl (Flomax) 0.4 mg PO DAILY [facility] Last Admin: 05/01/18 10:37 Dose: 0.4 mg - Labs Labs: 04/30/18 14:19 04/30/18 14:19 PT 15.0 SECONDS (9.7-12.2) H 04/30/18 14:19 INR 1.4 04/30/18 14:19 APTT 36 SECONDS (21-34) H 04/30/18 14:19 - Constitutional Appears: Non-toxic, No Acute Distress - Head Exam Head Exam: ATRAUMATIC, NORMAL INSPECTION - Eye Exam Eye Exam: EOMI, Normal appearance - Respiratory Exam Respiratory Exam: Prolonged Expiratory Phase. absent: Respiratory Distress - Cardiovascular Exam Cardiovascular Exam: +S1, +S2 - GI/Abdominal Exam GI & Abdominal Exam: Soft, Tenderness (tender in RLQ). absent: Distended, Firm, Guarding, Rigid Additional comments: napoleon in place - Neurological Exam Neurological Exam: Alert, Awake, Oriented x3 - Psychiatric Exam Psychiatric exam: Normal Affect, Normal Mood - Skin Skin Exam: Dry, Normal Color Assessment and Plan - Assessment and Plan (Free Text) Assessment: 48yo M with PMHx of Hep C, ESRD on dialysis, endocarditis, PE, nephrolithiasis, left nephrectomy, HTN who presented with abdominal pain s/p ex lap with ileocecectomy for gangrenous cecum POD#18 - Discussed possibility of CTA to evaluate vessels with Dr. Torres (radiologist) but per discussion, all vessels clearly visible and patent on CT w/ IV contrast done yesterday. Therefore, no need for additional CTA - Will remove napoleon today - Continue regular diet - Encourage IS and ambulation - Discussed plan with Dr. John Barth PGY-4
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
--- NOTE | 2018-05-01 19:46 | CON ---
DATE: 05/01/2018 CARDIOLOGY CONSULT REASON FOR CONSULTATION: Borderline troponin elevation. HISTORY OF PRESENT ILLNESS: The patient is a 48-year-old male who has a history of end-stage renal disease, on hemodialysis. The patient has renal failure secondary to extensive bilateral nephrolithiasis. He underwent a left nephrectomy few years ago, and he has a staghorn calculus in the right kidney. The patient has a history of aortic valve bacterial endocarditis and underwent cardiac catheterization recently by Dr. Schultz in February of this year, i.e., 2 months ago, which revealed nonobstructive coronary artery disease with normal ejection fraction. The patient underwent recently exploratory laparotomy and ileocecectomy for gangrenous changes, and he presented because of right lower quadrant pain but no vomiting. The patient is able to eat. The patient denies any fever or chills. SOCIAL HISTORY: Nonsmoker. 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 MEDICATIONS: Cardizem 30 mg every 8 hours, Crestor 10 mg once a day, Eliquis 2.5 mg twice a day, PhosLo 1 tablet t.i.d., Protonix 40 mg p.o. once a day. PHYSICAL EXAMINATION: GENERAL: The patient is a middle-aged male who does not appear to be in acute distress. VITAL SIGNS: Blood pressure 95/52, heart rate 78, temperature 98.7, respirations 18. HEENT: Normocephalic. CHEST: Clear. HEART: S1, S2 regular. EXTREMITIES: No edema. LABORATORY DATA: SMA-7: Sodium 136, potassium 3.6, chloride 89, CO2 of 30, glucose 92, BUN 22, creatinine 7.6. Troponin 0.335 and 0.471. Hemoglobin and hematocrit 10.5 and 31.9. White count and platelet count are within normal limit. INR is 1.4. PTT 36. Hepatitis B surface antigen is negative. EKG revealed normal sinus rhythm at rate of 80 with nonspecific T-wave abnormality and slightly prolonged QT interval. ASSESSMENT 1. Borderline troponin elevation. The patient is known to have nonobstructive coronary artery disease on a cardiac catheterization that was done 2 months ago, and there are no evidence of acute ischemic EKG changes or chest pain, unlikely the elevated troponin represents myocardial injury but to the patient's end-stage renal disease and anuric state. 2. History of bacterial endocarditis with aortic valve few months ago with residual aortic insufficiency. 3. Recent ileocecectomy for gangrenous changes. 4. Paroxysmal atrial fibrillation. The patient was in atrial fibrillation during the last admission but converted to sinus rhythm. RECOMMENDATIONS: Continue current Cardizem at 30 mg every 8 hours, Crestor 10 mg once a day, Eliquis 2.5 mg twice a day, PhosLo 1 tablet t.i.d. Mc Miner MD
[2018-05-03] MEDS ORDERED: Influenza Vaccine 60 MCG/0.5 ML SYR (3 yr & up) IM ONE (10:00)
== END 2018-05-01 12:42 | disposition left against medical advice (07) | DRG 551 ==
LOC: C.ER 13:10 → C.9E 18:24 → C.6T 18:54 → UNDODISIN 05-01 12:42
PROVIDERS: ADMIT Internal Medicine; ATTEND Internal Medicine
DX: R10.31 Right lower quadrant pain (principal); R78.81 Bacteremia; B18.2 Chronic viral hepatitis C; I12.0 Hypertensive chronic kidney disease with stage 5 chronic kidney disease or end stage renal disease; N18.6 End stage renal disease; E87.70 Fluid overload, unspecified; I35.1 Nonrheumatic aortic (valve) insufficiency; R07.9 Chest pain, unspecified; D64.9 Anemia, unspecified; I25.10 Atherosclerotic heart disease of native coronary artery without angina pectoris; I48.0 Paroxysmal atrial fibrillation; Z86.711 Personal history of pulmonary embolism; Z87.440 Personal history of urinary (tract) infections; Z87.442 Personal history of urinary calculi; Z90.49 Acquired absence of other specified parts of digestive tract; Z90.5 Acquired absence of kidney; Z91.15 Patient's noncompliance with renal dialysis; Z99.2 Dependence on renal dialysis

== ENCOUNTER 2018-05-03 21:41 | Inpatient (IN) | payer OTHER ==
[2018-05-03 21:42] VITALS: BMI 25.2
[2018-05-03 22:24] LABS: VENOUS BLOOD GAS BASE EXCESS 2.4 mmol/L (0.0-2.0); VENOUS BLOOD GAS PCO2 38 mmHg (40-60); VENOUS BLOOD GAS PO2 38 mm/Hg (30-55); VENOUS BLOOD PH 7.45 (7.32-7.43)
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
[2018-05-03 22:39] LABS: BASO % 1.1 % (0.0-2.0); EOS # 0.1 K/uL (0.0-0.7); HEMOGLOBIN 10.3 g/dL (12.0-18.0); LYMPH # 1.2 K/uL (1.0-4.3); LYMPH % 29.5 % (20.0-40.0); MEAN CELL VOLUME 94.9 fL (80.0-94.0); MEAN CORPUSCULAR HEMOGLOBIN 31.2 pg (27.0-31.0); MEAN CORPUSCULAR HGB CONC 32.8 g/dL (33.0-37.0); MEAN PLATELET VOLUME 8.1 fL (7.2-11.7); MONO # 0.4 K/uL (0.0-0.8); MONO % 8.9 % (0.0-10.0); NEUT # 2.3 K/uL (1.8-7.0); NEUT % 58.5 % (50.0-75.0); NRBC % 0.2 % (0.0-2.0); RBC 3.32 Mil/uL (4.40-5.90); RED CELL DISTRIBUTION WIDTH 16.6 % (11.5-14.5)
[2018-05-03 23:00] LABS: ALBUMIN 3.7 g/dL (3.5-5.0); CALCIUM 8.8 mg/dl (8.6-10.4)
[2018-05-03 23:11] LABS: CK-MB 0.56 ng/mL (0.0-3.38); TROPONIN I 0.385 ng/mL (0.00-0.120)
[2018-05-04] MEDS: Oxycodone/Acetaminophen 5/325 mg Tab PO PRN ×2 (01:37→23:16)
[2018-05-04] MEDS ORDERED: Oxycodone/Acetaminophen 5/325 mg Tab ONE (01:37)
[2018-05-04 07:44] LABS: TROPONIN I 0.339 ng/mL (0.00-0.120)
[2018-05-04 07:45] LABS: CK-MB 0.49 ng/mL (0.0-3.38)
[2018-05-04] MEDS ORDERED: Sevelamer Carb 2.4 gm/Packet PO SCH (08:00)
[2018-05-04] MEDS: Docusate-Senna 50 mg-8.6 mg Tab PO SCH ×2 (09:36→20:04)
[2018-05-04] MEDS: Pantoprazole 40 mg EC Tab PO SCH (09:36)
--- NOTE | 2018-05-04 09:36 | RAD ---
Date of service: 05/03/2018 HISTORY: cp COMPARISON: Comparison made with chest radiograph 04/30/2018. FINDINGS: LUNGS: No active pulmonary disease. PLEURA: No significant pleural effusion identified, no pneumothorax apparent. CARDIOVASCULAR: No aortic atherosclerotic calcification present. Heart remains enlarged.. No pulmonary vascular congestion. OSSEOUS STRUCTURES: No significant abnormalities. VISUALIZED UPPER ABDOMEN: Normal. OTHER FINDINGS: None. IMPRESSION: No active disease.
[2018-05-04] MEDS ORDERED: Vancomycin 1 GM 1 GM/250 ML BAG IVPB ONE (09:42)
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
[2018-05-04] MEDS: Sevelamer Carb 2.4 gm/Packet PO SCH ×2 (12:19→20:04)
[2018-05-04 13:01] LABS: TROPONIN I 0.317 ng/mL (0.00-0.120)
[2018-05-04 13:13] LABS: CK-MB 0.6 ng/mL (0.0-3.38)
[2018-05-04 21:15] LABS: CK-MB 0.62 ng/mL (0.0-3.38); TROPONIN I 0.339 ng/mL (0.00-0.120)
[2018-05-05] MEDS: Sevelamer Carb 2.4 gm/Packet PO SCH ×3 (08:26→18:00)
[2018-05-05] MEDS: Docusate-Senna 50 mg-8.6 mg Tab PO SCH ×2 (11:00→18:00)
[2018-05-05] MEDS: Pantoprazole 40 mg EC Tab PO SCH (11:00)
--- NOTE | 2018-05-05 11:10 | CP.PCM.PN ---
Subjective - Date & Time of Evaluation Date of Evaluation: 05/05/18 Time of Evaluation: 11:09 - Subjective Subjective: ambulating in koenig 3.5 kg UF yesterday breathing better no chest pain no sob no fever no abdominal pain no vomiting no rash no headache no arthralgias no sinus tenderness Objective - Vital Signs/Intake and Output Vital Signs (last 24 hours): Temp Pulse Resp BP Pulse Ox 97.3 F L 76 18 101/30 L 98 05/05/18 07:20 05/05/18 07:20 05/05/18 07:20 05/05/18 07:20 05/05/18 07:20 - Medications Medications: Current Medications Alprazolam (Xanax) 0.5 mg PO Q6 PRN PRN Reason: Anxiety Last Admin: 05/04/18 23:16 Dose: 0.5 mg Aspirin (Aspirin Chewable) 81 mg PO DAILY [facility] Calcium Acetate (Phoslo) 667 mg PO TIDCC [facility] Last Admin: 05/05/18 08:26 Dose: 667 mg Cephalexin Monohydrate (Keflex) 500 mg PO Q12H [facility]; Protocol Last Admin: 05/04/18 23:22 Dose: 500 mg Ferrous Sulfate (Feosol) 325 mg PO BID [facility] Last Admin: 05/04/18 20:04 Dose: Not Given Heparin Sodium (Porcine) (Heparin) 5,000 units SC Q8 [facility] Last Admin: 05/05/18 06:09 Dose: Not Given Vancomycin HCl 1 gm/ Sodium (Chloride) 250 mls @ 166.7 mls/hr IVPB Q24H [facility]; Protocol Last Admin: 05/04/18 10:08 Dose: 166.7 mls/hr Metoprolol Tartrate (Lopressor) 25 mg PO BID [facility] Last Admin: 05/04/18 23:15 Dose: 25 mg Oxycodone/Acetaminophen (Percocet 5/325 Mg Tab) 2 tab PO Q4H PRN PRN Reason: prn for pain Stop: 05/06/18 23:21 Last Admin: 05/04/18 23:16 Dose: 2 tab Pantoprazole Sodium (Protonix Ec Tab) 40 mg PO DAILY [facility] Last Admin: 05/04/18 09:36 Dose: 40 mg Pneumococcal Polyvalent Vaccine (Pneumovax 23 Vaccine) 0.5 ml IM .ONCE ONE Stop: 05/08/18 10:01 Senna/Docusate Sodium (Senokot S 50 Mg-8.6 Mg) 2 tab PO BID [facility] Last Admin: 05/04/18 20:04 Dose: Not Given Sevelamer Carbonate (Renvela) 2.4 gm PO TIDCC [facility] Last Admin: 05/05/18 08:26 Dose: 2.4 gm - Labs Labs: 05/03/18 22:33 05/03/18 12:30 APTT 38 SECONDS (21-34) H 05/03/18 23:27 - Constitutional Appears: Non-toxic, Chronically Ill - Head Exam Head Exam: ATRAUMATIC, NORMAL INSPECTION - Eye Exam Eye Exam: EOMI - ENT Exam ENT Exam: Mucous Membranes Moist - Neck Exam Neck Exam: Full ROM. absent: Lymphadenopathy - Respiratory Exam Respiratory Exam: Clear to Ausculation Bilateral. absent: Accessory Muscle Use - GI/Abdominal Exam GI & Abdominal Exam: Soft. absent: Tenderness - Extremities Exam Extremities Exam: absent: Pedal Edema Assessment and Plan - Assessment and Plan (Free Text) Plan: watch fluids maint HD continue AB for bacteremeia
--- NOTE | 2018-05-05 14:19 | CARD ---
APPROVED REPORT Date of service: 05/03/2018 EKG Measurement Heart [id number] <Conclusion> Normal sinus rhythm Possible Left atrial enlargement Nonspecific ST and T wave abnormality Abnormal ECG
--- NOTE | 2018-05-05 18:58 | CARD ---
APPROVED REPORT Date of service: 05/05/2018 EXAM: Two-dimensional and M-mode echocardiogram with Doppler and color Doppler. Other Information Quality : GoodRhythm : INDICATION Dyspnea Atrial Fibrillation Congestive Heart Failure REAPET/ ENDOCARDITIS ECHO DONE ON 02/13/18 MANDIE DONE ON 02/20/18 2D DIMENSIONS IVSd1.2 (0.7-1.1cm)Aortic Root (2D)3.4 (2.0-3.7cm) LVDd6.5 (3.9-5.9cm)LVOT Diameter2.0 (1.8-2.4cm) PWd1.2 (0.7-1.1cm)LVDs4.2 (2.5-4.0cm) FS (%) 35.8 %LVEF (%)64.2 (>50%) LVEF (Grey's)71.88 % M-Mode DIMENSIONS Left Atrium (MM)5.70 (2.5-4.0cm)Aortic Root3.08 (2.2-3.7cm) Aortic Cusp Exc.0.98 (1.5-2.0cm) Aortic Valve AoV Peak Ttjyrrvw364.5cm/sAoV VTI55.0cmAO Peak GR.34mmHg LVOT Peak Nrzzxvsu262.2cm/sLVOT VTI43.17cmAO Mean GR.18mmHg KENNETH (VMAX)2.55qd5TNK (VTI)2.96jy7WI P 1/2 Hhgl099xi Mitral Valve MV E Kulnjhdy755.7cm/sMV A Paiybvdf67.7cm/sMV JOL02xi E/A ratio2.0MVA (PHT)4.21cm2 TDI E/Lateral E'0.0E/Medial E'0.0 Pulmonary Valve PV Peak Ukffxfjk11.2cm/sPV Peak Grad.2mmHg Tricuspid Valve TR Peak Nsvkboyb582hd/sTR Peak Gr.20kaAsFYZW60qgMh LEFT VENTRICLE The left ventricle is markedly dilated. There is normal left ventricular wall thickness. The left ventricular function is low normal. The left ventricular ejection fraction is about 50%, visually. No regional wall motion abnormalities noted. The left ventricular diastolic function is indeterminate. No left ventricle thrombus noted on this study. There is no ventricular septal defect visualized. There is no left ventricular aneurysm. There is no mass noted in the left ventricle. RIGHT VENTRICLE The right ventricle is normal size. There is normal right ventricular wall thickness. The right ventricular systolic function is markedly reduced. ATRIA The left atrium size is moderately dilated. The right atrium size is moderately dilated. The interatrial septum is intact with no evidence for an atrial septal defect. AORTIC VALVE The aortic valve is trileafelt, and thickened, but demonstrates low normal opening. A mobile mass is noted on the left cusp, c/w vegetation. Moderate to severe aortic regurgitation is present. There is no aortic valvular stenosis Peak gradient is 34 mm Hg, but estimate valve area is normnal. Increased gradient may be due to AI. MITRAL VALVE The mitral valve is normal in structure and function. There is no evidence of mitral valve prolapse. There is no mitral valve stenosis. There is moderate eccentric mitral valve regurgitation noted. Mild annular calcification. TRICUSPID VALVE The tricuspid valve is normal in structure and function. There is severe ricuspid valve regurgitation noted. Estimated PA systolic pressure is 68 mm Hg. There is no tricuspid valve prolapse or vegetation. There is no tricuspid valve stenosis. PULMONIC VALVE The pulmonary valve is normal in structure and function. There is mild pulmonic valvular regurgitation. There is no pulmonic valvular stenosis. GREAT VESSELS The aortic root is normal in size. The ascending aorta is normal in size. The pulmonary artery is normal. The IVC is dilated and collapses <50% with inspiration. PERICARDIAL EFFUSION The pericardium appears normal. There is no pleural effusion. <Conclusion> Cardiomegealy. Low normal left ventricular sysolic function, normal wall motion. The aortic valve is trileafelt, and thickened, but demonstrates low normal opening. A mobile mass is noted on the left cusp, c/w vegetation. Moderate to severe aortic regurgitation is present. There is moderate eccentric mitral valve regurgitation noted. Mild annular calcification. The right ventricular systolic function is markedly reduced. Severe pulmonary HTN.
--- NOTE | 2018-05-05 21:56 | PN ---
DATE: 05/05/2018 SUBJECTIVE: The patient denies any chest pain or shortness of breath. PHYSICAL EXAMINATION: VITAL SIGNS: Blood pressure 101/30, heart rate 76, temperature 97.3, respirations 18. HEENT: Normocephalic. CHEST: Clear. HEART: S1, S2 regular. EXTREMITIES: No edema. ASSESSMENT AND PLAN: 1. Borderline troponin elevation. The patient is known to have normal coronary artery circulation on recent cardiac catheterization 2 months ago. 2. History of aortic valve endocarditis. 3. End-stage renal disease, on hemodialysis. 4. Anemia. PLAN: Continue current aspirin 81 mg once a day, Feosol 1 tablet twice a day, IV vancomycin 1 g daily, Lopressor 25 mg twice a day, subcutaneous heparin 5000 International Units every 8 hours. I will review the echocardiographic study performed today. I will discuss the case with Dr. Schultz, the cruise consultant fiscal analyst. Mc Miner MD
[2018-05-06] MEDS: Sevelamer Carb 2.4 gm/Packet PO SCH ×3 (08:07→18:34)
[2018-05-06] MEDS: Pantoprazole 40 mg EC Tab PO SCH (09:22)
[2018-05-06] MEDS: Docusate-Senna 50 mg-8.6 mg Tab PO SCH ×2 (09:26→18:35)
--- NOTE | 2018-05-06 14:44 | PN ---
DATE: 05/06/2018 SUBJECTIVE: The patient denies any chest pain or abdominal pain. PHYSICAL EXAMINATION: VITAL SIGNS: Blood pressure 120/49, heart rate 75, temperature 97.6, respirations 20. HEENT: Pale conjunctivae. CHEST: Clear. HEART: S1 and S2 regular. EXTREMITIES: No edema. LABORATORY DATA: Echocardiographic study revealed a mobile mass noted in the aortic valve consistent with vegetation, yzrwnlxe-nh-lnkqyw aortic insufficiency and moderate eccentric mitral valve regurgitation. Blood cultures negative after 48 hours. ASSESSMENT: 1. Aortic valve endocarditis with aizvncdl-gt-kfitnw aortic insufficiency. 2. End-stage renal disease, on hemodialysis. 3. Chest pain with borderline troponin elevation. PLAN: Continue aspirin 81 mg once a day, subcutaneous heparin 5000 units every 8 hours, Feosol one tablet twice a day, Lopressor 25 mg twice a day, IV vancomycin 1 g daily. I would request infectious disease consult and awaiting Dr. Schultz's evaluation for transfer to [facility] for nephrectomy followed by aortic valve replacement. Mc Miner MD
[2018-05-06] MEDS ORDERED: ceFAZolin 1 gm FROZEN Premix 1 GM/50 ML ML IVPB SCH (15:00)
[2018-05-06] MEDS ORDERED: ceFAZolin IV 1 gm in Dextrose 1 GM/50 ML BAG IVPB SCH (16:00)
[2018-05-06] MEDS: ceFAZolin 1 gm FROZEN Premix 1 GM/50 ML ML IVPB SCH (18:36)
[2018-05-06] MEDS: Oxycodone/Acetaminophen 5/325 mg Tab PO PRN (21:26)
[2018-05-07] MEDS ORDERED: Oxycodone/Acetaminophen 5/325 mg Tab PO ONE (00:27)
[2018-05-07] MEDS: ceFAZolin 1 gm FROZEN Premix 1 GM/50 ML ML IVPB SCH ×2 (05:13→18:00)
[2018-05-07 08:29] LABS: ALBUMIN 3.3 g/dL (3.5-5.0); CALCIUM 9.1 mg/dl (8.6-10.4)
[2018-05-07 08:32] LABS: HEMOGLOBIN 10.5 g/dL (12.0-18.0); MEAN CELL VOLUME 95.6 fL (80.0-94.0); MEAN CORPUSCULAR HEMOGLOBIN 31.2 pg (27.0-31.0); MEAN CORPUSCULAR HGB CONC 32.7 g/dL (33.0-37.0); MEAN PLATELET VOLUME 9.8 fL (7.2-11.7); RBC 3.36 Mil/uL (4.40-5.90); RED CELL DISTRIBUTION WIDTH 17.6 % (11.5-14.5)
[2018-05-07 08:42] LABS: WHITE BLOOD COUNT 6.2 K/uL (4.8-10.8)
[2018-05-07] MEDS ORDERED: Vancomycin 1 gm/NS 200 ml 1 GM/200 ML BAG IVPB SCH (09:00)
--- NOTE | 2018-05-07 09:10 | HP ---
DATE: 05/04/2018 REASON FOR CONSULTATION: Borderline troponin elevation. HISTORY OF PRESENT ILLNESS: The patient is a 48 years old male, who has history of end-stage renal disease on hemodialysis secondary to significant bilateral nephrolithiasis. The patient underwent left nephrectomy a few years ago and has currently plan to undergo right nephrectomy for staghorn calculus and recurrent pyelonephritis. The patient underwent recently ileocecectomy for cecal gangrene. Postoperatively, the patient developed atrial fibrillation that required initiation of Eliquis. The patient was admitted recently; apparently walked out on his own prior to and he presents because of what he described as chest discomfort that he explained to me as a period of palpitation followed by slowing of his heartbeat. The patient underwent cardiac catheterization by Dr. Schultz as recent as 02/27/2018, i.e. less than 2 months ago, which was reported as nonobstructive coronary artery disease with normal ejection fraction and the procedure was performed prior to a planned aortic valve replacement for aortic valve endocarditis. SOCIAL HISTORY: Nonsmoker, nondrinker. FAMILY HISTORY: He is and lives with his . MEDICATIONS: Feosol 1 tablet twice a day, heparin 5000 units subcutaneous every 8 hours, PhosLo 1 tablet t.i.d., Percocet 2 tablets every 4 hours p.r.n., vancomycin 1 gm intravenously daily, Xanax mg every 6 hours p.r.n. REVIEW OF SYSTEMS: No fever or chills. No dizziness or syncope. PHYSICAL EXAMINATION: GENERAL: The patient is a middle-aged male who does not appear to be in acute distress. VITAL SIGNS: Blood pressure 119/42, heart rate 82, temperature 97.8 and respiration 19. HEENT: Pale conjunctivae. CHEST: Clear. HEART: S1, S2 regular. EXTREMITIES: No edema. LABORATORY DATA: Yesterday's hemoglobin and hematocrit were 10.3 and 31.5, white count 4, platelet count 171,000. Yesterday's SMA-7; sodium 139, potassium 3.7, chloride 92, CO2 32, glucose 121, BUN 26, creatinine 7.5, troponin 0.385 and 0.339 and 0.317 respectively, PTT 38. EKG revealed sinus rhythm at rate of 87, possible left atrial enlargement; nonspecific ST-T wave changes. ASSESSMENT: 1. Borderline troponin elevation, unlikely due to myocardial injury, my own review of the coronary angiogram which I did review myself that was done two months ago revealed unremarkable coronary circulation. 2. History of recent bacterial endocarditis of the aortic valve with residual aortic insufficiency. 3. End-stage renal disease on hemodialysis. 4. Paroxysmal atrial fibrillation. 5. History of recent ileocecectomy for gangrenous changes. 6. Staghorn right renal stone. RECOMMENDATIONS: Case was discussed with Dr. Liang. Continue Feosol 325 mg twice a day, subcutaneous heparin 5000 units every 8 hours, Keflex 500 mg twice a day, Percocet 2 tablets p.o. every 4 hours p.r.n., PhosLo 1 tablet t.i.d., vancomycin 1 gm intravenously daily. I would repeat another echocardiography study and restart the patient on Eliquis at 2.5 mg daily. Mc Miner MD
--- NOTE | 2018-05-07 09:46 | CP.PCM.PN ---
Subjective - Date & Time of Evaluation Date of Evaluation: 05/07/18 Time of Evaluation: 09:45 - Subjective Subjective: Iban Barba DO, PGY-1 Cardiology Progress Note for Dr. Schultz Patient was seen and examined at bedside this AM. He reports his chest pain is improved since admission but continues to complain of intermittent, mid-sternal chest pain that does not radiate. He states the percocet he received last night helped with the pain. ROS significant for intermittent SOB, palpitations, CP, productive cough with brown sputum, fatigue, syncope (2 months ago), nausea/vomiting/diarrhea, and decreased appetite. He denied fever, abdominal pain, CALDERÓN, or current pre-syncopal symptoms. Objective - Vital Signs/Intake and Output Vital Signs (last 24 hours): Temp Pulse Resp BP Pulse Ox 97.3 F L 72 20 92/51 L 96 05/07/18 07:10 05/07/18 07:10 05/07/18 07:10 05/07/18 07:10 05/07/18 07:10 - Medications Medications: Current Medications Alprazolam (Xanax) 0.5 mg PO Q6 PRN PRN Reason: Anxiety Last Admin: 05/07/18 05:09 Dose: 0.5 mg Aspirin (Aspirin Chewable) 81 mg PO DAILY [facility] Last Admin: 05/06/18 09:22 Dose: 81 mg Calcium Acetate (Phoslo) 667 mg PO TIDCC [facility] Last Admin: 05/06/18 18:35 Dose: 667 mg Ferrous Sulfate (Feosol) 325 mg PO BID [facility] Last Admin: 05/06/18 18:34 Dose: 325 mg Vancomycin/Sodium Chloride (Vancomycin 1 Gm/Ns 200 Ml) 1 gm in 200 mls @ 133 mls/hr IVPB MWF [facility]; Protocol Stop: 05/12/18 09:01 Cefazolin Sodium (Ancef) 1 gm in 50 mls @ 100 mls/hr IVPB Q12H [facility] Last Admin: 05/07/18 05:13 Dose: 100 mls/hr Metoprolol Tartrate (Lopressor) 25 mg PO BID [facility] Last Admin: 05/06/18 18:29 Dose: Not Given Pantoprazole Sodium (Protonix Ec Tab) 40 mg PO DAILY [facility] Last Admin: 05/06/18 09:22 Dose: 40 mg Pneumococcal Polyvalent Vaccine (Pneumovax 23 Vaccine) 0.5 ml IM .ONCE ONE Stop: 05/08/18 10:01 Senna/Docusate Sodium (Senokot S 50 Mg-8.6 Mg) 2 tab PO BID [facility] Last Admin: 05/06/18 18:35 Dose: Not Given Sevelamer Carbonate (Renvela) 2.4 gm PO TIDCC [facility] Last Admin: 05/06/18 18:34 Dose: 2.4 gm - Labs Labs: 05/07/18 07:58 05/07/18 07:58 APTT 38 SECONDS (21-34) H 05/03/18 23:27 - Constitutional Appears: Non-toxic, No Acute Distress - Head Exam Head Exam: ATRAUMATIC, NORMOCEPHALIC - Eye Exam Eye Exam: EOMI, Normal appearance - ENT Exam ENT Exam: Mucous Membranes Moist - Neck Exam Neck Exam: Full ROM, Normal Inspection - Respiratory Exam Respiratory Exam: Clear to Ausculation Bilateral, NORMAL BREATHING PATTERN. absent: Accessory Muscle Use, Rales, Rhonchi, Wheezes - Cardiovascular Exam Cardiovascular Exam: Diastolic murmur (grade 3/6 diastolic murmur loudest aortic region), +S1, +S2. absent: Gallop, Rubs - GI/Abdominal Exam GI & Abdominal Exam: Soft, Normal Bowel Sounds. absent: Guarding - Extremities Exam Extremities Exam: Full ROM - Back Exam Back Exam: Full ROM - Neurological Exam Neurological Exam: Alert, Awake, Oriented x3 - Psychiatric Exam Psychiatric exam: Normal Affect, Normal Mood - Skin Skin Exam: Dry, Intact, Warm. absent: Erythema, Rash Assessment and Plan - Assessment and Plan (Free Text) Assessment: 48 yo M with PMH of ESRD (M,W,F hemodialysis), severe aortic valve insufficiency, prior episode of endocarditis, HTN, anxiety, anemia, seizure disorder, hepatitis C, IVDA (last use 2014), PE (previously on Coumadin) presented to [facility] ED with L-sided CP. He was subsequently found to have severe aortic regurgitation on echo and mobile mass on aortic valve left cusp c/w vegetation. Plan: 1. Severe aortic regurgitation Plan on transfer to [place] for nephrectomy and aortic valve replacement Will continue to follow at [place] 2. 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 Agree with vanc and ancef therapies 3. HFpEF with severe pulmonary HTN Continue lopressor 25 mg BID No peripheral edema or other signs of acute exacerbation at this time Consider lasix if cough worsens or begins to show other s/sx of exacerbation Case and plan reviewed and discussed with my attending Dr. Antoine Barba, DO IM Resident PGY-1
[2018-05-07] MEDS: Sevelamer Carb 2.4 gm/Packet PO SCH ×3 (10:29→18:01)
[2018-05-07] MEDS: Pantoprazole 40 mg EC Tab PO SCH (10:29)
[2018-05-07] MEDS: Docusate-Senna 50 mg-8.6 mg Tab PO SCH ×2 (10:29→17:59)
--- NOTE | 2018-05-07 12:46 | CP.PCM.PN ---
Subjective - Date & Time of Evaluation Date of Evaluation: 05/07/18 Time of Evaluation: 12:44 - Subjective Subjective: Still SOB Very edematous Will need nephrectomy then valne replacement For dialysis soon Objective - Vital Signs/Intake and Output Vital Signs (last 24 hours): Temp Pulse Resp BP Pulse Ox 97.3 F L 72 20 92/51 L 96 05/07/18 07:10 05/07/18 07:10 05/07/18 07:10 05/07/18 10:30 05/07/18 07:10 - Medications Medications: Current Medications Alprazolam (Xanax) 0.5 mg PO Q6 PRN PRN Reason: Anxiety Last Admin: 05/07/18 05:09 Dose: 0.5 mg Aspirin (Aspirin Chewable) 81 mg PO DAILY [facility] Last Admin: 05/07/18 10:29 Dose: 81 mg Calcium Acetate (Phoslo) 1,334 mg PO TIDCC [facility] Ferrous Sulfate (Feosol) 325 mg PO BID [facility] Last Admin: 05/07/18 10:29 Dose: 325 mg Vancomycin/Sodium Chloride (Vancomycin 1 Gm/Ns 200 Ml) 1 gm in 200 mls @ 133 mls/hr IVPB MWF [facility]; Protocol Stop: 05/12/18 09:01 Cefazolin Sodium (Ancef) 1 gm in 50 mls @ 100 mls/hr IVPB Q12H [facility] Last Admin: 05/07/18 05:13 Dose: 100 mls/hr Metoprolol Tartrate (Lopressor) 25 mg PO BID [facility] Last Admin: 05/07/18 10:30 Dose: Not Given Pantoprazole Sodium (Protonix Ec Tab) 40 mg PO DAILY [facility] Last Admin: 05/07/18 10:29 Dose: 40 mg Pneumococcal Polyvalent Vaccine (Pneumovax 23 Vaccine) 0.5 ml IM .ONCE ONE Stop: 05/08/18 10:01 Senna/Docusate Sodium (Senokot S 50 Mg-8.6 Mg) 2 tab PO BID [facility] Last Admin: 05/07/18 10:29 Dose: 2 tab Sevelamer Carbonate (Renvela) 2.4 gm PO TIDCC [facility] Last Admin: 05/07/18 10:29 Dose: 2.4 gm - Labs Labs: 05/07/18 07:58 05/07/18 07:58 APTT 38 SECONDS (21-34) H 05/03/18 23:27 - Constitutional Appears: In Acute Distress, Chronically Ill - Head Exam Head Exam: ATRAUMATIC, NORMAL INSPECTION - Eye Exam Eye Exam: EOMI, Normal appearance - Neck Exam Neck Exam: Normal Inspection. absent: Tenderness - Respiratory Exam Respiratory Exam: Rhonchi, NORMAL BREATHING PATTERN - Cardiovascular Exam Cardiovascular Exam: REGULAR RHYTHM, +S1, Murmur - GI/Abdominal Exam GI & Abdominal Exam: Soft. absent: Tenderness - Extremities Exam Extremities Exam: Pedal Edema. absent: Tenderness - Neurological Exam Neurological Exam: Awake, CN II-XII Intact - Skin Skin Exam: Dry, Warm Assessment and Plan (1) Fluid overload Status: Acute (2) ESRD (end stage renal disease) Status: Acute (3) Hypertensive CKD, ESRD on dialysis Status: Acute (4) Hypertensive chronic kidney disease with stage 5 chronic kidney disease or end stage renal disease Status: Acute (5) Xanthogranulomatous pyelonephritis Status: Acute (6) Bacteremia Status: Acute (7) SBE (subacute bacterial endocarditis) Status: Acute (8) Xanthogranulomatous pyelonephritis Status: Acute - Assessment and Plan (Free Text) Plan: Dialysis now IV AB for bacteremia Eventual transfer for surgery
[2018-05-07] MEDS ORDERED: Albumin Human 25% (12.5 gm/50 ml) IV ONE ×3 (13:30→15:00)
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
[2018-05-07] MEDS: Vancomycin 1 gm/NS 200 ml 1 GM/200 ML BAG IVPB SCH (18:00)
--- NOTE | 2018-05-08 02:10 | CP.PCM.PN ---
Subjective - Date & Time of Evaluation Date of Evaluation: 05/07/18 - Subjective Subjective: dictated Objective - Vital Signs/Intake and Output Vital Signs (last 24 hours): Temp Pulse Resp BP Pulse Ox 97.7 F 73 20 102/42 L 97 05/07/18 17:10 05/07/18 17:10 05/07/18 17:10 05/07/18 18:02 05/07/18 17:10 Intake and Output: 05/07/18 05/08/18 18:59 06:59 Intake Total 480 Balance 480 - Medications Medications: Current Medications Alprazolam (Xanax) 0.5 mg PO Q6 PRN PRN Reason: Anxiety Last Admin: 05/08/18 01:55 Dose: 0.5 mg Aspirin (Aspirin Chewable) 81 mg PO DAILY [facility] Last Admin: 05/07/18 10:29 Dose: 81 mg Calcium Acetate (Phoslo) 1,334 mg PO TIDCC [facility] Last Admin: 05/07/18 17:59 Dose: 1,334 mg Ferrous Sulfate (Feosol) 325 mg PO BID [facility] Last Admin: 05/07/18 17:59 Dose: 325 mg Cefazolin Sodium (Ancef) 1 gm in 50 mls @ 100 mls/hr IVPB Q12H [facility] Last Admin: 05/07/18 18:00 Dose: 100 mls/hr Vancomycin/Sodium Chloride (Vancomycin 1 Gm/Ns 200 Ml) 1 gm in 200 mls @ 133 mls/hr IVPB MWF [facility]; Protocol Stop: 05/12/18 17:01 Last Admin: 05/07/18 18:00 Dose: 133 mls/hr Metoprolol Tartrate (Lopressor) 25 mg PO BID [facility] Last Admin: 05/07/18 18:02 Dose: Not Given Pantoprazole Sodium (Protonix Ec Tab) 40 mg PO DAILY [facility] Last Admin: 05/07/18 10:29 Dose: 40 mg Pneumococcal Polyvalent Vaccine (Pneumovax 23 Vaccine) 0.5 ml IM .ONCE ONE Stop: 05/08/18 10:01 Senna/Docusate Sodium (Senokot S 50 Mg-8.6 Mg) 2 tab PO BID [facility] Last Admin: 05/07/18 17:59 Dose: 2 tab Sevelamer Carbonate (Renvela) 2.4 gm PO TIDCC [facility] Last Admin: 05/07/18 18:01 Dose: 2.4 gm - Labs Labs: 05/07/18 07:58 05/07/18 07:58 APTT 38 SECONDS (21-34) H 05/03/18 23:27
[2018-05-08] MEDS: ceFAZolin 1 gm FROZEN Premix 1 GM/50 ML ML IVPB SCH (06:27)
--- NOTE | 2018-05-08 08:26 | PN ---
DATE: 05/08/2018 SUBJECTIVE: Wei Frank has bilateral flank pain. The patient has a vegetation on his aortic valve. Aortic valve is trileaflet, thickened. It opens a low normal opening and vegetation on his left cusp, moderate to severe aortic regurgitation. I will call the patient's urologist at [facility] and consider nephrectomy before possible aortic valve replacement. Given the patient's history of substance abuse, noncompliance, he may not be a candidate for heart surgery. PHYSICAL EXAMINATION: VITAL SIGNS: Blood pressure is 92/45, pulse 73, respiratory rate 20, and temperature 98.4. The patient has low baseline blood pressure. He is not on hypertension. LABORATORY DATA: WBC 6.2, hemoglobin 10.5, hematocrit 32.1, platelets 142. Sodium 135, potassium 4.8, chloride 92, bicarb 26, BUN 51, creatinine 10.6. ASSESSMENT: 1. Nephrolithiasis, obstructive uropathy with chronic kidney disease. 2. Aortic incompetence . 3. Polysubstance abuse with hepatitis C. 4. Anxiety and depression. PLAN: Continue current medications. ID followup. Blood cultures are negative. Monitor the patient. Mikel Marc MD
--- NOTE | 2018-05-08 09:08 | CP.PCM.PN ---
<Iban Barba - Last Filed: 05/08/18 09:08> Subjective - Date & Time of Evaluation Date of Evaluation: 05/08/18 Time of Evaluation: 08:30 - Subjective Subjective: Iban Barba DO, PGY-1 Cardiology Progress Note for Dr. Schultz Patient was seen and examined at bedside this AM. Reports CP is improving but still consistent and intermittent. He is still having dyspnea with exertion. Objective - Vital Signs/Intake and Output Vital Signs (last 24 hours): Temp Pulse Resp BP Pulse Ox 97.5 F L 71 18 96/54 L 96 05/08/18 07:20 05/08/18 07:20 05/08/18 07:20 05/08/18 07:20 05/08/18 07:20 - Medications Medications: Current Medications Alprazolam (Xanax) 0.5 mg PO Q6 PRN PRN Reason: Anxiety Last Admin: 05/08/18 01:55 Dose: 0.5 mg Aspirin (Aspirin Chewable) 81 mg PO DAILY [facility] Last Admin: 05/07/18 10:29 Dose: 81 mg Calcium Acetate (Phoslo) 1,334 mg PO TIDCC [facility] Last Admin: 05/07/18 17:59 Dose: 1,334 mg Ferrous Sulfate (Feosol) 325 mg PO BID [facility] Last Admin: 05/07/18 17:59 Dose: 325 mg Cefazolin Sodium (Ancef) 1 gm in 50 mls @ 100 mls/hr IVPB Q12H [facility] Last Admin: 05/08/18 06:27 Dose: 100 mls/hr Vancomycin/Sodium Chloride (Vancomycin 1 Gm/Ns 200 Ml) 1 gm in 200 mls @ 133 mls/hr IVPB MWF [facility]; Protocol Stop: 05/12/18 17:01 Last Admin: 05/07/18 18:00 Dose: 133 mls/hr Metoprolol Tartrate (Lopressor) 25 mg PO BID [facility] Last Admin: 05/07/18 18:02 Dose: Not Given Pantoprazole Sodium (Protonix Ec Tab) 40 mg PO DAILY [facility] Last Admin: 05/07/18 10:29 Dose: 40 mg Pneumococcal Polyvalent Vaccine (Pneumovax 23 Vaccine) 0.5 ml IM .ONCE ONE Stop: 05/08/18 10:01 Senna/Docusate Sodium (Senokot S 50 Mg-8.6 Mg) 2 tab PO BID [facility] Last Admin: 05/07/18 17:59 Dose: 2 tab Sevelamer Carbonate (Renvela) 2.4 gm PO TIDCC [facility] Last Admin: 05/07/18 18:01 Dose: 2.4 gm - Labs Labs: 05/07/18 07:58 05/07/18 07:58 APTT 38 SECONDS (21-34) H 05/03/18 23:27 - Constitutional Appears: Non-toxic, No Acute Distress - Head Exam Head Exam: ATRAUMATIC, NORMOCEPHALIC - Eye Exam Eye Exam: EOMI, Normal appearance, PERRL - ENT Exam ENT Exam: Mucous Membranes Moist - Neck Exam Neck Exam: Full ROM, Normal Inspection - Respiratory Exam Respiratory Exam: Clear to Ausculation Bilateral, NORMAL BREATHING PATTERN. absent: Accessory Muscle Use, Rales, Rhonchi, Wheezes, Respiratory Distress - Cardiovascular Exam Cardiovascular Exam: Diastolic murmur (grade 3/6 diastolic murmur loudest in aortic region unchanged from yesterday), REGULAR RHYTHM, RRR, +S1, +S2. absent: Gallop, Rubs - GI/Abdominal Exam GI & Abdominal Exam: Soft, Normal Bowel Sounds. absent: Guarding, Tenderness - Extremities Exam Extremities Exam: Full ROM. absent: Pedal Edema - Back Exam Back Exam: Full ROM, NORMAL INSPECTION - Neurological Exam Neurological Exam: Alert, Awake, Oriented x3 - Psychiatric Exam Psychiatric exam: Normal Affect, Normal Mood - Skin Skin Exam: Dry, Intact, Warm Assessment and Plan - Assessment and Plan (Free Text) Assessment: 48 yo M with PMH of ESRD (M,W,F hemodialysis), severe aortic valve insufficiency, prior episode of endocarditis, HTN, anxiety, anemia, seizure disorder, hepatitis C, IVDA (last use 2014), PE (previously on Coumadin) presented to [facility] ED with L-sided CP. He was subsequently found to have severe aortic regurgitation on echo and mobile mass on aortic valve left cusp c/w vegetation. His chest pain is improving but consistent. Planning on transfer to [place] for nephrectomy and aortic valve replacement once endocarditis has resolved. Plan: 1. Severe aortic regurgitation Plan on transfer to [place] for nephrectomy and aortic valve replacement after resolution of endocarditis/vegetation Blood cx negative to date on this visit Will continue to follow at [place] 2. Aortic valve vegetation/endocarditis Admits to IVDA in the past but has not used since 2014 Echo positive for vegetation, also had prior positive Blood cx. but blood cx this admission negative to date Continue with vanc and ancef therapies 3. HFpEF with severe pulmonary HTN Continue lopressor 25 mg BID No peripheral edema or other signs of acute exacerbation at this time Consider lasix if cough worsens or begins to show other s/sx of exacerbation 4. Persistent troponin elevation Likely 2/2 demand ischemia and valve tissue necrosis from severe aortic regurgitation in the setting of ESRD Has not increased from baseline since admission Monitor closely Case and plan reviewed and discussed with my attending Dr. Antoine Barba, DO IM Resident PGY-1 <Naresh Schultz - Last Filed: 05/09/18 22:37> Objective - Vital Signs/Intake and Output Vital Signs (last 24 hours): Temp Pulse Resp BP Pulse Ox 98.5 F 74 20 114/50 L 96 05/09/18 18:10 05/09/18 18:10 05/09/18 18:10 05/09/18 19:56 05/09/18 18:10 - Medications Medications: Current Medications Alprazolam (Xanax) 0.5 mg PO Q6 PRN PRN Reason: Anxiety Last Admin: 05/09/18 07:44 Dose: 0.5 mg Aspirin (Aspirin Chewable) 81 mg PO DAILY [facility] Last Admin: 05/09/18 10:33 Dose: Not Given Calcium Acetate (Phoslo) 1,334 mg PO TIDCC [facility] Last Admin: 05/09/18 17:55 Dose: 1,334 mg Ferrous Sulfate (Feosol) 325 mg PO BID [facility] Last Admin: 05/09/18 18:04 Dose: 325 mg Vancomycin/Sodium Chloride (Vancomycin 1 Gm/Ns 200 Ml) 1 gm in 200 mls @ 133 mls/hr [facility]; Protocol Stop: 05/12/18 17:01 Last Admin: 05/09/18 10:55 Dose: Not Given Cefazolin Sodium (Ancef) 1 gm in 50 mls @ 100 mls/hr IVPB Q24H [facility] Last Admin: 05/09/18 05:37 Dose: 100 mls/hr Metoprolol Tartrate (Lopressor) 12.5 mg PO BID [facility] Last Admin: 05/09/18 19:56 Dose: Not Given Oxycodone HCl (Oxycontin Extended Release Tab) 10 mg PO Q12 [facility] Stop: 05/11/18 22:01 Last Admin: 05/09/18 21:12 Dose: 10 mg Oxycodone/Acetaminophen (Percocet 5/325 Mg Tab) 2 tab PO Q6H PRN PRN Reason: Pain, moderate (4-7) Stop: 05/11/18 12:25 Last Admin: 05/09/18 18:05 Dose: 2 tab Pantoprazole Sodium (Protonix Ec Tab) 40 mg PO DAILY [facility] Last Admin: 05/09/18 10:34 Dose: Not Given Senna/Docusate Sodium (Senokot S 50 Mg-8.6 Mg) 2 tab PO BID [facility] Last Admin: 05/09/18 18:04 Dose: 2 tab Sevelamer Carbonate (Renvela) 2.4 gm PO TIDCC [facility] Last Admin: 05/09/18 17:55 Dose: 2.4 gm - Labs Labs: 05/07/18 07:58 05/07/18 07:58 APTT 38 SECONDS (21-34) H 05/03/18 23:27 Attending/Attestation - Attestation I have personally seen and examined this patient.: Yes I have fully participated in the care of the patient.: Yes I have reviewed all pertinent clinical information, including history, physical exam and plan: Yes
[2018-05-08] MEDS ORDERED: Pneumococcal 23-Valent Vaccine IM ONE (10:00)
[2018-05-08] MEDS: Pantoprazole 40 mg EC Tab PO SCH (10:13)
[2018-05-08] MEDS: Sevelamer Carb 2.4 gm/Packet PO SCH ×3 (10:14→17:58)
--- NOTE | 2018-05-08 10:27 | CP.PCM.PN ---
Subjective - Date & Time of Evaluation Date of Evaluation: 05/08/18 Time of Evaluation: 10:25 - Subjective Subjective: seen and examined s/p hd yesterday uf 2L bp low in 80-90s systolic chart reviewed c/o shortness of breath, leg swelling Objective - Vital Signs/Intake and Output Vital Signs (last 24 hours): Temp Pulse Resp BP Pulse Ox 97.5 F L 71 18 94/41 L 96 05/08/18 07:20 05/08/18 07:20 05/08/18 07:20 05/08/18 10:13 05/08/18 07:20 - Medications Medications: Current Medications Alprazolam (Xanax) 0.5 mg PO Q6 PRN PRN Reason: Anxiety Last Admin: 05/08/18 01:55 Dose: 0.5 mg Aspirin (Aspirin Chewable) 81 mg PO DAILY [facility] Last Admin: 05/08/18 10:13 Dose: 81 mg Calcium Acetate (Phoslo) 1,334 mg PO TIDCC [facility] Last Admin: 05/08/18 10:14 Dose: 1,334 mg Ferrous Sulfate (Feosol) 325 mg PO BID [facility] Last Admin: 05/08/18 10:13 Dose: 325 mg Cefazolin Sodium (Ancef) 1 gm in 50 mls @ 100 mls/hr IVPB Q12H [facility] Last Admin: 05/08/18 06:27 Dose: 100 mls/hr Vancomycin/Sodium Chloride (Vancomycin 1 Gm/Ns 200 Ml) 1 gm in 200 mls @ 133 mls/hr IVPB [facility]; Protocol Stop: 05/12/18 17:01 Last Admin: 05/07/18 18:00 Dose: 133 mls/hr Metoprolol Tartrate (Lopressor) 12.5 mg PO BID [facility] Pantoprazole Sodium (Protonix Ec Tab) 40 mg PO DAILY [facility] Last Admin: 05/08/18 10:13 Dose: 40 mg Senna/Docusate Sodium (Senokot S 50 Mg-8.6 Mg) 2 tab PO BID [facility] Last Admin: 05/07/18 17:59 Dose: 2 tab Sevelamer Carbonate (Renvela) 2.4 gm PO TIDCC [facility] Last Admin: 05/08/18 10:14 Dose: 2.4 gm - Labs Labs: 05/07/18 07:58 05/07/18 07:58 APTT 38 SECONDS (21-34) H 05/03/18 23:27 - Constitutional Appears: Non-toxic, No Acute Distress, Chronically Ill - Head Exam Head Exam: NORMAL INSPECTION, NORMOCEPHALIC - Eye Exam Eye Exam: Normal appearance, PERRL - ENT Exam ENT Exam: Mucous Membranes Moist, Normal Exam - Neck Exam Neck Exam: Full ROM, Normal Inspection - Respiratory Exam Respiratory Exam: Decreased Breath Sounds (bases), Clear to Ausculation Bilateral, NORMAL BREATHING PATTERN - Cardiovascular Exam Cardiovascular Exam: REGULAR RHYTHM, RRR - GI/Abdominal Exam GI & Abdominal Exam: Distended, Soft - Extremities Exam Extremities Exam: Full ROM, Normal Inspection, Pedal Edema (3+) - Neurological Exam Neurological Exam: Alert, Awake, Oriented x3 - Psychiatric Exam Psychiatric exam: Normal Affect, Normal Mood - Skin Skin Exam: Dry, Intact, Warm Assessment and Plan (1) Bacteremia Status: Acute (2) ESRD (end stage renal disease) Status: Acute (3) SBE (subacute bacterial endocarditis) Status: Acute (4) Xanthogranulomatous pyelonephritis Status: Acute (5) Atrial fibrillation Status: Acute - Assessment and Plan (Free Text) Assessment: maintain hd mwf, extra treatment today for uf antibiotics per ID lower metoprolol dose, low bp ? valve surgery for severe AR / nephrectomy
[2018-05-08] MEDS: Docusate-Senna 50 mg-8.6 mg Tab PO SCH ×3 (10:32→17:59)
[2018-05-08] MEDS: Oxycodone/Acetaminophen 5/325 mg Tab PO PRN ×2 (12:35→18:39)
--- NOTE | 2018-05-08 14:33 | CP.PCM.PN ---
Subjective - Date & Time of Evaluation Date of Evaluation: 05/08/18 Time of Evaluation: 14:33 - Subjective Subjective: AFEBRILE, S/P HD YESTERDAY . OFFERS NO NEW COMPLAINTS. SEEN BY SURGERY TODAY FOR PERSISTANT PAIN RLQ. DENIES N/V. C/O INTERMITTENT DIARRHOEA Objective - Vital Signs/Intake and Output Vital Signs (last 24 hours): Temp Pulse Resp BP Pulse Ox 97.5 F L 71 18 94/41 L 96 05/08/18 07:20 05/08/18 07:20 05/08/18 07:20 05/08/18 10:13 05/08/18 07:20 - Medications Medications: Current Medications Alprazolam (Xanax) 0.5 mg PO Q6 PRN PRN Reason: Anxiety Last Admin: 05/08/18 01:55 Dose: 0.5 mg Aspirin (Aspirin Chewable) 81 mg PO DAILY [facility] Last Admin: 05/08/18 10:13 Dose: 81 mg Calcium Acetate (Phoslo) 1,334 mg PO TIDCC [facility] Last Admin: 05/08/18 12:36 Dose: 1,334 mg Ferrous Sulfate (Feosol) 325 mg PO BID [facility] Last Admin: 05/08/18 10:13 Dose: 325 mg Vancomycin/Sodium Chloride (Vancomycin 1 Gm/Ns 200 Ml) 1 gm in 200 mls @ 133 mls/hr IVPB MWF [facility]; Protocol Stop: 05/12/18 17:01 Last Admin: 05/07/18 18:00 Dose: 133 mls/hr Cefazolin Sodium (Ancef) 1 gm in 50 mls @ 100 mls/hr IVPB Q24H [facility] Metoprolol Tartrate (Lopressor) 12.5 mg PO BID [facility] Last Admin: 05/08/18 10:32 Dose: Not Given Oxycodone/Acetaminophen (Percocet 5/325 Mg Tab) 2 tab PO Q6H PRN PRN Reason: Pain, moderate (4-7) Stop: 05/11/18 12:25 Last Admin: 05/08/18 12:35 Dose: 2 tab Pantoprazole Sodium (Protonix Ec Tab) 40 mg PO DAILY [facility] Last Admin: 05/08/18 10:13 Dose: 40 mg Senna/Docusate Sodium (Senokot S 50 Mg-8.6 Mg) 2 tab PO BID [facility] Last Admin: 05/08/18 10:32 Dose: Not Given Sevelamer Carbonate (Renvela) 2.4 gm PO TIDCC [facility] Last Admin: 05/08/18 12:36 Dose: 2.4 gm - Labs Labs: 05/07/18 07:58 05/07/18 07:58 APTT 38 SECONDS (21-34) H 05/03/18 23:27 - Constitutional Appears: No Acute Distress - Eye Exam Eye Exam: EOMI, PERRL - ENT Exam ENT Exam: Normal Oropharynx - Neck Exam Neck Exam: Normal Inspection - Respiratory Exam Respiratory Exam: Clear to Ausculation Bilateral, NORMAL BREATHING PATTERN - Cardiovascular Exam Cardiovascular Exam: REGULAR RHYTHM, +S1, +S2 - GI/Abdominal Exam GI & Abdominal Exam: Soft, Normal Bowel Sounds (MIDLINE SCAR WELL HEALED /?MINIMAL ASCITES NOTED.) - Extremities Exam Extremities Exam: Normal Capillary Refill, Pedal Edema (1+). absent: Calf Tenderness - Neurological Exam Neurological Exam: Alert, Awake, CN II-XII Intact, Oriented x3, Reflexes Normal - Psychiatric Exam Psychiatric exam: Normal Mood - Skin Skin Exam: Normal Color, Warm Assessment and Plan (1) Bacteremia Status: Acute (2) SBE (subacute bacterial endocarditis) Status: Acute (3) Xanthogranulomatous pyelonephritis Status: Acute (4) Hypertensive CKD, ESRD on dialysis Status: Acute - Assessment and Plan (Free Text) Plan: REPEAT BLOOD CULTURES 05/03/18 -VE GROWTH TO DATE DECREASE iv CEFAZOLIN 1 G EVERY 24HRLY HOURLY 05/06/18. X 6WEEKS PER DISCUSSION WITH PHARMACY ACCORDING TO RENAL FUNCTION. CONTINUE iv VANCOMYCIN 1 G POST EACH HEMODIALYSIS MWF FOR NOW F/U VANCO RANDOM IN AM VANCO RANDOM WAS ELEVATED.(32.9 ) PT FOR CT ANGIO ABD/PELVIS PER SURGERY. PATIENT BEING EVALUATED BY CARPENTRY SPECIALIST DR DILLARD FOR TRANSFER TO [facility] FOR AV-REPLACEMENT/AND RIGHT NEPHRECTOMY REPORTED BY THE STAFF.
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
[2018-05-08] MEDS: oxyCODONE 10 mg ER Tab (oxyCONTIN) PO SCH (21:40)
--- NOTE | 2018-05-08 21:56 | CP.PCM.PN ---
Subjective - Subjective Subjective: dicttated Objective - Vital Signs/Intake and Output Vital Signs (last 24 hours): Temp Pulse Resp BP Pulse Ox 98 F 76 18 91/40 L 98 05/08/18 17:50 05/08/18 17:50 05/08/18 17:50 05/08/18 17:50 05/08/18 17:50 - Medications Medications: Current Medications Alprazolam (Xanax) 0.5 mg PO Q6 PRN PRN Reason: Anxiety Last Admin: 05/08/18 01:55 Dose: 0.5 mg Aspirin (Aspirin Chewable) 81 mg PO DAILY [facility] Last Admin: 05/08/18 10:13 Dose: 81 mg Calcium Acetate (Phoslo) 1,334 mg PO TIDCC [facility] Last Admin: 05/08/18 17:58 Dose: 1,334 mg Ferrous Sulfate (Feosol) 325 mg PO BID [facility] Last Admin: 05/08/18 17:58 Dose: 325 mg Vancomycin/Sodium Chloride (Vancomycin 1 Gm/Ns 200 Ml) 1 gm in 200 mls @ 133 [facility]ls[facility]; Protocol Stop: 05/12/18 17:01 Last Admin: 05/07/18 18:00 Dose: 133 mls/hr Cefazolin Sodium (Ancef) 1 gm in 50 mls @ 100 mls/hr IVPB Q24H [facility] Metoprolol Tartrate (Lopressor) 12.5 mg PO BID [facility] Last Admin: 05/08/18 17:50 Dose: Not Given Oxycodone HCl (Oxycontin Extended Release Tab) 10 mg PO Q12 [facility] Stop: 05/11/18 22:01 Last Admin: 05/08/18 21:40 Dose: 10 mg Oxycodone/Acetaminophen (Percocet 5/325 Mg Tab) 2 tab PO Q6H PRN PRN Reason: Pain, moderate (4-7) Stop: 05/11/18 12:25 Last Admin: 05/08/18 18:39 Dose: 2 tab Pantoprazole Sodium (Protonix Ec Tab) 40 mg PO DAILY [facility] Last Admin: 05/08/18 10:13 Dose: 40 mg Senna/Docusate Sodium (Senokot S 50 Mg-8.6 Mg) 2 tab PO BID [facility] Last Admin: 05/08/18 17:59 Dose: Not Given Sevelamer Carbonate (Renvela) 2.4 gm PO TIDCC [facility] Last Admin: 05/08/18 17:58 Dose: 2.4 gm - Labs Labs: 05/07/18 07:58 05/07/18 07:58 APTT 38 SECONDS (21-34) H 05/03/18 23:27
[2018-05-09] MEDS: ceFAZolin 1 gm FROZEN Premix 1 GM/50 ML ML IVPB SCH (05:37)
[2018-05-09] MEDS: Oxycodone/Acetaminophen 5/325 mg Tab PO PRN ×2 (05:45→18:05)
[2018-05-09] MEDS: Sevelamer Carb 2.4 gm/Packet PO SCH ×3 (08:01→17:55)
--- NOTE | 2018-05-09 10:27 | PN ---
DATE: 05/09/2018 SUBJECTIVE: Wei Frank is complaining of pain at postoperative site from the last surgery in the appendix. The patient's wound has healed, clean. There is no evidence of infection. The patient is afebrile. No shortness of breath. No nausea or vomiting. PHYSICAL EXAMINATION: VITAL SIGNS: Blood pressure 91/40, pulse 76, respiratory rate 18, temperature 97. GENERAL: The patient's baseline blood pressure is on the lower side, but he is not hypotensive, not symptomatic. Renal nurse has informed excessively and even Nephrology is aware of this thing, a low blood pressure. LUNGS: Clear. No rale or rhonchi. CVS: S1 and S2 regular. A 2/6 ejection systolic murmur at the aortic area. ABDOMEN: Soft and nontender. Bowel sounds are positive. Wound is clean, healed. ASSESSMENT: 1. Septicemia, on antibiotics. Repeat blood cultures are negative. 2. Valvular heart disease. The patient has history of nodules. The patient is noncompliant. 3. Nephrolithiasis. 4. Hydronephrosis. 5. Pyelonephritis. 6. Chronic kidney disease, on hemodialysis. PLAN: Continue to monitor the patient's antibiotics and contact urologist in [facility]. Mikel Marc MD
[2018-05-09] MEDS: oxyCODONE 10 mg ER Tab (oxyCONTIN) PO SCH ×2 (10:33→21:12)
[2018-05-09] MEDS: Pantoprazole 40 mg EC Tab PO SCH (10:34)
[2018-05-09] MEDS: Docusate-Senna 50 mg-8.6 mg Tab PO SCH ×2 (10:34→18:04)
--- NOTE | 2018-05-09 10:35 | CP.PCM.PN ---
<Iban Barba - Last Filed: 05/09/18 10:38> Subjective - Date & Time of Evaluation Date of Evaluation: 05/09/18 Time of Evaluation: 08:50 - Subjective Subjective: Iban Barba DO, PGY-1 Cardiology Progress Note for Dr. Schultz Patient was seen and examined at bedside this AM. He offers no new complaints and states his chest pain is consistent but improved. States he has been receiving IV abx and is tolerating without nausea/vomiting/diarrhea. Objective - Vital Signs/Intake and Output Vital Signs (last 24 hours): Temp Pulse Resp BP Pulse Ox 98.5 F 75 20 102/51 L 98 05/09/18 08:00 05/09/18 08:00 05/09/18 08:00 05/09/18 08:00 05/09/18 08:00 Intake and Output: 05/09/18 05/09/18 06:59 18:59 Intake Total 400 Balance 400 - Medications Medications: Current Medications Alprazolam (Xanax) 0.5 mg PO Q6 PRN PRN Reason: Anxiety Last Admin: 05/09/18 07:44 Dose: 0.5 mg Aspirin (Aspirin Chewable) 81 mg PO DAILY [facility] Last Admin: 05/08/18 10:13 Dose: 81 mg Calcium Acetate (Phoslo) 1,334 mg PO TIDCC [facility] Last Admin: 05/09/18 08:01 Dose: Not Given Ferrous Sulfate (Feosol) 325 mg PO BID [facility] Last Admin: 05/08/18 17:58 Dose: 325 mg Vancomycin/Sodium Chloride (Vancomycin 1 Gm/Ns 200 Ml) 1 gm in 200 mls @ 133 mls/hr IVPB MWF [facility]; Protocol Stop: 05/12/18 17:01 Last Admin: 05/07/18 18:00 Dose: 133 mls/hr Cefazolin Sodium (Ancef) 1 gm in 50 mls @ 100 mls/hr IVPB Q24H [facility] Last Admin: 05/09/18 05:37 Dose: 100 mls/hr Metoprolol Tartrate (Lopressor) 12.5 mg PO BID [facility] Last Admin: 05/08/18 17:50 Dose: Not Given Oxycodone HCl (Oxycontin Extended Release Tab) 10 mg PO Q12 [facility] Stop: 05/11/18 22:01 Last Admin: 05/08/18 21:40 Dose: 10 mg Oxycodone/Acetaminophen (Percocet 5/325 Mg Tab) 2 tab PO Q6H PRN PRN Reason: Pain, moderate (4-7) Stop: 05/11/18 12:25 Last Admin: 05/09/18 05:45 Dose: 2 tab Pantoprazole Sodium (Protonix Ec Tab) 40 mg PO DAILY [facility] Last Admin: 05/08/18 10:13 Dose: 40 mg Senna/Docusate Sodium (Senokot S 50 Mg-8.6 Mg) 2 tab PO BID [facility] Last Admin: 05/08/18 17:59 Dose: Not Given Sevelamer Carbonate (Renvela) 2.4 gm PO TIDCC [facility] Last Admin: 05/09/18 08:01 Dose: Not Given - Labs Labs: 05/07/18 07:58 05/07/18 07:58 APTT 38 SECONDS (21-34) H 05/03/18 23:27 - Constitutional Appears: Non-toxic, No Acute Distress - Head Exam Head Exam: ATRAUMATIC, NORMOCEPHALIC - Eye Exam Eye Exam: EOMI, Normal appearance, PERRL - ENT Exam ENT Exam: Mucous Membranes Moist - Neck Exam Neck Exam: Full ROM, Normal Inspection - Respiratory Exam Respiratory Exam: Clear to Ausculation Bilateral, NORMAL BREATHING PATTERN. absent: Rales, Rhonchi, Wheezes - Cardiovascular Exam Cardiovascular Exam: Diastolic murmur (grade 3/6 holo-diastolic murmur loudest in aortic region unchanged from prior exams), REGULAR RHYTHM, RRR, +S1, +S2. absent: Gallop, Rubs - GI/Abdominal Exam GI & Abdominal Exam: Soft, Normal Bowel Sounds. absent: Guarding, Tenderness, Rebound - Extremities Exam Extremities Exam: Full ROM, Normal Inspection. absent: Pedal Edema - Back Exam Back Exam: Full ROM, NORMAL INSPECTION - Neurological Exam Neurological Exam: Alert, Awake, Oriented x3 - Psychiatric Exam Psychiatric exam: Normal Affect, Normal Mood - Skin Skin Exam: Dry, Intact, Warm Assessment and Plan - Assessment and Plan (Free Text) Assessment: 48 yo M with PMH of ESRD (M,W,F hemodialysis), severe aortic valve insuffici ency, prior episode of endocarditis, HTN, anxiety, anemia, seizure disorder, hepatitis C, IVDA (last use 2014), PE (previously on Coumadin) presented to [facility] ED with L-sided CP. He was subsequently found to have severe aortic regurgitation on echo and mobile mass on aortic valve left cusp c/w vegetation. Chest pain is improving slightly with rest and IV abx since admission. He is awaiting transfer to [place] for nephrectomy and aortic valve replacement. Plan: 1. Severe aortic regurgitation Plan on transfer to [place] for nephrectomy and aortic valve replacement after resolution of endocarditis/vegetation Awaiting bed at [place] Will continue to follow after transfer 2. Aortic valve vegetation/endocarditis Admits to IVDA in the past but has not used since 2014 Echo positive for vegetation, also had prior positive Blood cx. but blood cx t his admission negative to date Continue with vanc and ancef therapies Continue symptomatic management of CP 3. HFpEF with severe pulmonary HTN Continue lopressor 25 mg BID No peripheral edema or other signs of acute exacerbation at this time 4. Persistent troponin elevation Likely 2/2 demand ischemia and valve tissue necrosis from severe aortic regurgitation in the setting of ESRD Has not increased from baseline since admission Monitor closely Case and plan reviewed and discussed with my attending Dr. Antoine Barba, DO IM Resident PGY-1 <Naresh Schultz - Last Filed: 05/09/18 22:38> Objective - Vital Signs/Intake and Output Vital Signs (last 24 hours): Temp Pulse Resp BP Pulse Ox 98.5 F 74 20 114/50 L 96 05/09/18 18:10 05/09/18 18:10 05/09/18 18:10 05/09/18 19:56 05/09/18 18:10 - Medications Medications: Current Medications Alprazolam (Xanax) 0.5 mg PO Q6 PRN PRN Reason: Anxiety Last Admin: 05/09/18 07:44 Dose: 0.5 mg Aspirin (Aspirin Chewable) 81 mg PO DAILY [facility] Last Admin: 05/09/18 10:33 Dose: Not Given Calcium Acetate (Phoslo) 1,334 mg PO TIDCC [facility] Last Admin: 05/09/18 17:55 Dose: 1,334 mg Ferrous Sulfate (Feosol) 325 mg PO BID [facility] Last Admin: 05/09/18 18:04 Dose: 325 mg Vancomycin/Sodium Chloride (Vancomycin 1 Gm/Ns 200 Ml) 1 gm in 200 mls @ 133 mls/hr IVPB MWF [facility]; Protocol Stop: 05/12/18 17:01 Last Admin: 05/09/18 10:55 Dose: Not Given Cefazolin Sodium (Ancef) 1 gm in 50 mls @ 100 mls/hr IVPB Q24H [facility] Last Admin: 05/09/18 05:37 Dose: 100 mls/hr Metoprolol Tartrate (Lopressor) 12.5 mg PO BID [facility] Last Admin: 05/09/18 19:56 Dose: Not Given Oxycodone HCl (Oxycontin Extended Release Tab) 10 mg PO Q12 [facility] Stop: 05/11/18 22:01 Last Admin: 05/09/18 21:12 Dose: 10 mg Oxycodone/Acetaminophen (Percocet 5/325 Mg Tab) 2 tab PO Q6H PRN PRN Reason: Pain, moderate (4-7) Stop: 05/11/18 12:25 Last Admin: 05/09/18 18:05 Dose: 2 tab Pantoprazole Sodium (Protonix Ec Tab) 40 mg PO DAILY [facility] Last Admin: 05/09/18 10:34 Dose: Not Given Senna/Docusate Sodium (Senokot S 50 Mg-8.6 Mg) 2 tab PO BID [facility] Last Admin: 05/09/18 18:04 Dose: 2 tab Sevelamer Carbonate (Renvela) 2.4 gm PO TIDCC [facility] Last Admin: 05/09/18 17:55 Dose: 2.4 gm - Labs Labs: 05/07/18 07:58 05/07/18 07:58 APTT 38 SECONDS (21-34) H 05/03/18 23:27 Attending/Attestation - Attestation I have personally seen and examined this patient.: Yes I have fully participated in the care of the patient.: Yes I have reviewed all pertinent clinical information, including history, physical exam and plan: Yes
[2018-05-09] MEDS: Vancomycin 1 gm/NS 200 ml 1 GM/200 ML BAG IVPB SCH (10:55)
[2018-05-09] MEDS ORDERED: Iodixanol 320 MG/ML 100 ML BOTTLE IV ONE (10:56)
--- NOTE | 2018-05-09 14:07 | CP.PCM.PN ---
Subjective - Date & Time of Evaluation Date of Evaluation: 05/09/18 Time of Evaluation: 14:04 - Subjective Subjective: Seen pre-HD s/p extra dialysis 05/08 still swollen BP on low side has been receiving IV ABs for bacteremia Objective - Vital Signs/Intake and Output Vital Signs (last 24 hours): Temp Pulse Resp BP Pulse Ox 98.5 F 75 20 102/51 L 98 05/09/18 08:00 05/09/18 08:00 05/09/18 08:00 05/09/18 08:00 05/09/18 08:00 Intake and Output: 05/09/18 05/09/18 06:59 18:59 Intake Total 400 Balance 400 - Medications Medications: Current Medications Alprazolam (Xanax) 0.5 mg PO Q6 PRN PRN Reason: Anxiety Last Admin: 05/09/18 07:44 Dose: 0.5 mg Aspirin (Aspirin Chewable) 81 mg PO DAILY [facility] Last Admin: 05/09/18 10:33 Dose: Not Given Calcium Acetate (Phoslo) 1,334 mg PO TIDCC [facility] Last Admin: 05/09/18 13:36 Dose: 1,334 mg Ferrous Sulfate (Feosol) 325 mg PO BID [facility] Last Admin: 05/09/18 10:33 Dose: Not Given Vancomycin/Sodium Chloride (Vancomycin 1 Gm/Ns 200 Ml) 1 gm in 200 mls @ 133 mls/hr IVPB MWF [facility]; Protocol Stop: 05/12/18 17:01 Last Admin: 05/09/18 10:55 Dose: Not Given Cefazolin Sodium (Ancef) 1 gm in 50 mls @ 100 mls/hr IVPB Q24H [facility] Last Admin: 05/09/18 05:37 Dose: 100 mls/hr Metoprolol Tartrate (Lopressor) 12.5 mg PO BID [facility] Last Admin: 05/09/18 10:33 Dose: Not Given Oxycodone HCl (Oxycontin Extended Release Tab) 10 mg PO Q12 [facility] Stop: 05/11/18 22:01 Last Admin: 05/09/18 10:33 Dose: Not Given Oxycodone/Acetaminophen (Percocet 5/325 Mg Tab) 2 tab PO Q6H PRN PRN Reason: Pain, moderate (4-7) Stop: 05/11/18 12:25 Last Admin: 05/09/18 05:45 Dose: 2 tab Pantoprazole Sodium (Protonix Ec Tab) 40 mg PO DAILY [facility] Last Admin: 05/09/18 10:34 Dose: Not Given Senna/Docusate Sodium (Senokot S 50 Mg-8.6 Mg) 2 tab PO BID [facility] Last Admin: 05/09/18 10:34 Dose: Not Given Sevelamer Carbonate (Renvela) 2.4 gm PO TIDCC [facility] Last Admin: 05/09/18 13:37 Dose: 2.4 gm - Labs Labs: 05/07/18 07:58 05/07/18 07:58 APTT 38 SECONDS (21-34) H 05/03/18 23:27 - Constitutional Appears: No Acute Distress, Chronically Ill - Head Exam Head Exam: NORMAL INSPECTION - Neck Exam Neck Exam: Normal Inspection. absent: Tenderness - Respiratory Exam Respiratory Exam: Clear to Ausculation Bilateral, NORMAL BREATHING PATTERN - Cardiovascular Exam Cardiovascular Exam: REGULAR RHYTHM, +S1 - GI/Abdominal Exam GI & Abdominal Exam: Soft. absent: Tenderness - Extremities Exam Extremities Exam: Pedal Edema. absent: Tenderness - Neurological Exam Neurological Exam: Awake, CN II-XII Intact - Skin Skin Exam: Dry, Warm Assessment and Plan (1) Fluid overload Status: Acute (2) ESRD (end stage renal disease) Status: Acute (3) Hypertensive CKD, ESRD on dialysis Status: Acute (4) Hypertensive chronic kidney disease with stage 5 chronic kidney disease or end stage renal disease Status: Acute (5) Xanthogranulomatous pyelonephritis Status: Acute (6) Bacteremia Status: Acute (7) SBE (subacute bacterial endocarditis) Status: Acute (8) Xanthogranulomatous pyelonephritis Status: Acute - Assessment and Plan (Free Text) Plan: Maximixe UF rate IV ABs Monitor BP Eventual nephrectomy
--- NOTE | 2018-05-09 14:49 | CP.PCM.PN ---
Subjective - Date & Time of Evaluation Date of Evaluation: 05/09/18 Time of Evaluation: 11:00 - Subjective Subjective: Surgery: Dr. Gonzalez Pt seen and examined. No acute overnight events. States he continues to have the same dull pain in the RLQ and is unable to urinate. Tolerating a diet and ambulating. Admits to having BMs, denies nausea/vomiting, fevers/chills. Objective - Vital Signs/Intake and Output Vital Signs (last 24 hours): Temp Pulse Resp BP Pulse Ox 98.5 F 75 20 102/51 L 98 05/09/18 08:00 05/09/18 08:00 05/09/18 08:00 05/09/18 08:00 05/09/18 08:00 Intake and Output: 05/09/18 05/09/18 06:59 18:59 Intake Total 400 Balance 400 - Medications Medications: Current Medications Alprazolam (Xanax) 0.5 mg PO Q6 PRN PRN Reason: Anxiety Last Admin: 05/09/18 07:44 Dose: 0.5 mg Aspirin (Aspirin Chewable) 81 mg PO DAILY [facility] Last Admin: 05/09/18 10:33 Dose: Not Given Calcium Acetate (Phoslo) 1,334 mg PO TIDCC [facility] Last Admin: 05/09/18 13:36 Dose: 1,334 mg Ferrous Sulfate (Feosol) 325 mg PO BID [facility] Last Admin: 05/09/18 10:33 Dose: Not Given Vancomycin/Sodium Chloride (Vancomycin 1 Gm/Ns 200 Ml) 1 gm in 200 mls @ 133 mls/hr IVPB MWF [facility]; Protocol Stop: 05/12/18 17:01 Last Admin: 05/09/18 10:55 Dose: Not Given Cefazolin Sodium (Ancef) 1 gm in 50 mls @ 100 mls/hr IVPB Q24H [facility] Last Admin: 05/09/18 05:37 Dose: 100 mls/hr Metoprolol Tartrate (Lopressor) 12.5 mg PO BID [facility] Last Admin: 05/09/18 10:33 Dose: Not Given Oxycodone HCl (Oxycontin Extended Release Tab) 10 mg PO Q12 [facility] Stop: 05/11/18 22:01 Last Admin: 05/09/18 10:33 Dose: Not Given Oxycodone/Acetaminophen (Percocet 5/325 Mg Tab) 2 tab PO Q6H PRN PRN Reason: Pain, moderate (4-7) Stop: 05/11/18 12:25 Last Admin: 05/09/18 05:45 Dose: 2 tab Pantoprazole Sodium (Protonix Ec Tab) 40 mg PO DAILY [facility] Last Admin: 05/09/18 10:34 Dose: Not Given Senna/Docusate Sodium (Senokot S 50 Mg-8.6 Mg) 2 tab PO BID [facility] Last Admin: 05/09/18 10:34 Dose: Not Given Sevelamer Carbonate (Renvela) 2.4 gm PO TIDCC [facility] Last Admin: 05/09/18 13:37 Dose: 2.4 gm - Labs Labs: 05/07/18 07:58 05/07/18 07:58 APTT 38 SECONDS (21-34) H 05/03/18 23:27 - Constitutional Appears: No Acute Distress - Head Exam Head Exam: ATRAUMATIC, NORMOCEPHALIC - Eye Exam Eye Exam: Normal appearance - ENT Exam ENT Exam: Mucous Membranes Moist - Cardiovascular Exam Cardiovascular Exam: RRR - GI/Abdominal Exam GI & Abdominal Exam: Guarding (voluntary), Soft, Tenderness (RLQ, midline surgical incision healing well). absent: Distended, Rebound - Neurological Exam Neurological Exam: Alert, Awake, Oriented x3 - Skin Skin Exam: Dry, Warm Assessment and Plan - Assessment and Plan (Free Text) Assessment: 48M with persistent RLQ s/p ileocecectomy for necrotic segment of ileum; POD#26 Plan: - f/u CTA - recommend GI eval for possible colonoscopy to further evaluate bowel as prev ious CT scans have been negative for pathology - d/w Dr. Lisa Carr
--- NOTE | 2018-05-09 15:26 | CT ---
Date of service: 05/09/2018 CTA abdomen Indication: Abd pain POD#25 s/p ileocecectomy for gangrene Comparison: CT abdomen and pelvis with IV contrast performed 04/30/18 Technique: Contrast dose: Total exam DLP: 1569.62 Axial computed tomographic angiogram images of the abdomen and pelvis were performed after bolus administration of nonionic intravenous contrast. Sagittal and coronal reformatted images were generated and reviewed. This CT exam was performed using 1 or more of the falling dose reduction techniques: Automated exposure control, adjustment of the MAA and/or kV according to patient size, and/or use of iterative reconstruction technique. Findings: Limited views of the inferior thorax demonstrates small bilateral pleural effusions and associated compressive consolidations. Partially imaged coronary artery calcifications. Dense mitral annulus calcification. Dense atherosclerotic calcifications of the aorta and branches. There is normal course and contour of the abdominal aorta and common iliac arteries. The celiac artery origin is widely patent. The superior mesenteric artery origin is widely patent. The inferior mesenteric artery origin is patent. The right renal artery origin appears patent. Hepatomegaly. Hypoattenuation of the liver compatible with hepatic steatosis. 6 x 9 mm hepatic hypodensity too small to characterize statistically likely cyst or hemangioma. Right renal staghorn calculus re-identified. Distention of the right renal collecting system and renal cortical atrophy as on prior study. Right ureteral stent. Left nephrectomy. Left adrenal gland is not identified presumably resected as well. Pericholecystic edema/wall thickening of the gallbladder. Splenomegaly. The liver appears within normal limits of size and morphology. The pancreas, spleen, adrenal glands, and gallbladder appear unremarkable. The kidneys enhance symmetrically without evidence of hydronephrosis or obstructing renal calculi. No enlarged abdominal lymphadenopathy is identified. Visualized bowel loops appear within normal limits of caliber without evidence of obstruction. Prior appendectomy. No definite free air. The urinary bladder appears unremarkable. Abdominal and pelvic ascites. Diffusely sclerotic osseous structures consistent with renal osteodystrophy. Correlate clinically. Impression: Abdominal and pelvic ascites persists. Bilateral pleural effusions and associated compressive consolidations. Stable appearance of the right kidney with right ureteral stent present. Pericholecystic edema/gallbladder-wall thickening. Hepatomegaly. Hypoattenuation of the liver compatible with hepatic steatosis. Splenomegaly. Diffusely sclerotic osseous structures consistent with renal osteodystrophy. Correlate clinically. Additional findings as above. Case discussed with GAGE Ku on 05/09/18 at 3:10 p.m.
--- NOTE | 2018-05-09 22:33 | CP.PCM.PN ---
Subjective - Subjective Subjective: dictated Objective - Vital Signs/Intake and Output Vital Signs (last 24 hours): Temp Pulse Resp BP Pulse Ox 98.5 F 74 20 114/50 L 96 05/09/18 18:10 05/09/18 18:10 05/09/18 18:10 05/09/18 19:56 05/09/18 18:10 - Medications Medications: Current Medications Alprazolam (Xanax) 0.5 mg PO Q6 PRN PRN Reason: Anxiety Last Admin: 05/09/18 07:44 Dose: 0.5 mg Aspirin (Aspirin Chewable) 81 mg PO DAILY [facility] Last Admin: 05/09/18 10:33 Dose: Not Given Calcium Acetate (Phoslo) 1,334 mg PO TIDCC [facility] Last Admin: 05/09/18 17:55 Dose: 1,334 mg Ferrous Sulfate (Feosol) 325 mg PO BID [facility] Last Admin: 05/09/18 18:04 Dose: 325 mg Vancomycin/Sodium Chloride (Vancomycin 1 Gm/Ns 200 Ml) 1 gm in 200 mls @ 133 [facility]ls[facility]; Protocol Stop: 05/12/18 17:01 Last Admin: 05/09/18 10:55 Dose: Not Given Cefazolin Sodium (Ancef) 1 gm in 50 mls @ 100 mls/hr IVPB Q24H [facility] Last Admin: 05/09/18 05:37 Dose: 100 mls/hr Metoprolol Tartrate (Lopressor) 12.5 mg PO BID [facility] Last Admin: 05/09/18 19:56 Dose: Not Given Oxycodone HCl (Oxycontin Extended Release Tab) 10 mg PO Q12 [facility] Stop: 05/11/18 22:01 Last Admin: 05/09/18 21:12 Dose: 10 mg Oxycodone/Acetaminophen (Percocet 5/325 Mg Tab) 2 tab PO Q6H PRN PRN Reason: Pain, moderate (4-7) Stop: 05/11/18 12:25 Last Admin: 05/09/18 18:05 Dose: 2 tab Pantoprazole Sodium (Protonix Ec Tab) 40 mg PO DAILY [facility] Last Admin: 05/09/18 10:34 Dose: Not Given Senna/Docusate Sodium (Senokot S 50 Mg-8.6 Mg) 2 tab PO BID [facility] Last Admin: 05/09/18 18:04 Dose: 2 tab Sevelamer Carbonate (Renvela) 2.4 gm PO TIDCC [facility] Last Admin: 05/09/18 17:55 Dose: 2.4 gm - Labs Labs: 05/07/18 07:58 05/07/18 07:58 APTT 38 SECONDS (21-34) H 05/03/18 23:27
--- NOTE | 2018-05-09 22:46 | CP.PCM.PN ---
Subjective - Date & Time of Evaluation Date of Evaluation: 05/09/18 Time of Evaluation: 22:45 - Subjective Subjective: afebrile,BP 114/54 SEEN AT HEMODIALYSIS TODAY, C/O DULL ABDOMINAL PAIN RIGHT LOW QUADRANT. DENIES DIARRHEA. WENT FOR CT ANGIOGRAM EARLIER TODAY. Objective - Vital Signs/Intake and Output Vital Signs (last 24 hours): Temp Pulse Resp BP Pulse Ox 98.5 F 74 20 114/50 L 96 05/09/18 18:10 05/09/18 18:10 05/09/18 18:10 05/09/18 19:56 05/09/18 18:10 - Medications Medications: Current Medications Alprazolam (Xanax) 0.5 mg PO Q6 PRN PRN Reason: Anxiety Last Admin: 05/09/18 07:44 Dose: 0.5 mg Aspirin (Aspirin Chewable) 81 mg PO DAILY [facility] Last Admin: 05/09/18 10:33 Dose: Not Given Calcium Acetate (Phoslo) 1,334 mg PO TIDCC [facility] Last Admin: 05/09/18 17:55 Dose: 1,334 mg Ferrous Sulfate (Feosol) 325 mg PO BID [facility] Last Admin: 05/09/18 18:04 Dose: 325 mg Vancomycin/Sodium Chloride (Vancomycin 1 Gm/Ns 200 Ml) 1 gm in 200 mls @ 133 mls/hr IVPB [facility]; Protocol Stop: 05/12/18 17:01 Last Admin: 05/09/18 10:55 Dose: Not Given Cefazolin Sodium (Ancef) 1 gm in 50 mls @ 100 mls/hr IVPB Q24H [facility] Last Admin: 05/09/18 05:37 Dose: 100 mls/hr Metoprolol Tartrate (Lopressor) 12.5 mg PO BID [facility] Last Admin: 05/09/18 19:56 Dose: Not Given Oxycodone HCl (Oxycontin Extended Release Tab) 10 mg PO Q12 [facility] Stop: 05/11/18 22:01 Last Admin: 05/09/18 21:12 Dose: 10 mg Oxycodone/Acetaminophen (Percocet 5/325 Mg Tab) 2 tab PO Q6H PRN PRN Reason: Pain, moderate (4-7) Stop: 05/11/18 12:25 Last Admin: 05/09/18 18:05 Dose: 2 tab Pantoprazole Sodium (Protonix Ec Tab) 40 mg PO DAILY [facility] Last Admin: 05/09/18 10:34 Dose: Not Given Senna/Docusate Sodium (Senokot S 50 Mg-8.6 Mg) 2 tab PO BID [facility] Last Admin: 05/09/18 18:04 Dose: 2 tab Sevelamer Carbonate (Renvela) 2.4 gm PO TIDCC [facility] Last Admin: 05/09/18 17:55 Dose: 2.4 gm - Labs Labs: 05/07/18 07:58 05/07/18 07:58 APTT 38 SECONDS (21-34) H 05/03/18 23:27 - Constitutional Appears: No Acute Distress - Head Exam Head Exam: NORMAL INSPECTION - Eye Exam Eye Exam: EOMI, Normal appearance, PERRL - ENT Exam ENT Exam: Normal Oropharynx - Neck Exam Neck Exam: Normal Inspection - Respiratory Exam Respiratory Exam: Clear to Ausculation Bilateral, NORMAL BREATHING PATTERN - Cardiovascular Exam Cardiovascular Exam: REGULAR RHYTHM, +S1, +S2 - GI/Abdominal Exam GI & Abdominal Exam: Soft, Normal Bowel Sounds. absent: Rebound (+VE MILD TENDERNESS RLQ +VE INCISION WELL HEALED.+VE ASCITES) - Extremities Exam Extremities Exam: Normal Capillary Refill, Pedal Edema (1+EDEMA). absent: Calf Tenderness - Neurological Exam Neurological Exam: Alert, Awake, CN II-XII Intact, Oriented x3, Reflexes Normal - Psychiatric Exam Psychiatric exam: Normal Mood - Skin Skin Exam: Normal Color, Warm Assessment and Plan (1) Bacteremia Status: Acute (2) SBE (subacute bacterial endocarditis) Status: Acute (3) Xanthogranulomatous pyelonephritis Status: Acute (4) Hypertensive CKD, ESRD on dialysis Status: Acute - Assessment and Plan (Free Text) Plan: REPEAT BLOOD CULTURES 05/03/18 -VE GROWTH X 5DAYS ON iv CEFAZOLIN 1 G EVERY 24HRLY HOURLY 05/06/18. X 6WEEKS PER DISCUSSION WITH PHARMACY ACCORDING TO RENAL FUNCTION. HOLD VANCOMYCIN VANCO RANDOM REPEAT 31.5 (HIGH ) WILL REPEAT VANCOMYCIN RANDOM ON MONDAY POST HD PT FOR CT ANGIO ABD/PELVIS PER SURGERY.-PENDING REPORT. PER SURGERY
[2018-05-10] MEDS: Oxycodone/Acetaminophen 5/325 mg Tab PO PRN ×3 (01:18→14:36)
--- NOTE | 2018-05-10 03:10 | PN ---
DATE: 05/09/2018 SUBJECTIVE: Wei Frank is afebrile. No shortness of breath. He has flank pain. He has lower abdominal pain. Seen by Surgery. PHYSICAL EXAMINATION: VITAL SIGNS: Blood pressure 114/50, pulse 74, respiratory rate 20, temperature 98.5. LUNGS: Clear. CARDIOVASCULAR SYSTEM: S1, S2 regular. ABDOMEN: Soft and nontender. Bowel sounds are positive. ASSESSMENT: 1. Valvular heart disease with vegetation. Negative blood cultures. 2. Chronic kidney disease, on hemodialysis. 3. Nephrolithiasis with chronic kidney disease. 4. Anxiety and depression. PLAN: Continue antibiotics. WBC is 6.2. Hemoglobin is 10.5. Mikel Marc MD
[2018-05-10] MEDS: ceFAZolin 1 gm FROZEN Premix 1 GM/50 ML ML IVPB SCH (06:32)
[2018-05-10] MEDS: Sevelamer Carb 2.4 gm/Packet PO SCH ×3 (08:23→17:57)
--- NOTE | 2018-05-10 09:25 | CP.PCM.PN ---
Subjective - Date & Time of Evaluation Date of Evaluation: 05/10/18 Time of Evaluation: 08:00 - Subjective Subjective: Surgery: Dr. Gonzalez Pt seen and examined. No acute overnight events. States he feels ok, still having pain close to the incision on the right. Tolerating diet and denies nausea/vomiting. Denies fevers/chills. Objective - Vital Signs/Intake and Output Vital Signs (last 24 hours): Temp Pulse Resp BP Pulse Ox 97.8 F 72 20 108/55 L 99 05/10/18 08:37 05/10/18 08:37 05/10/18 08:37 05/10/18 08:37 05/10/18 08:37 - Medications Medications: Current Medications Alprazolam (Xanax) 0.5 mg PO Q6 PRN PRN Reason: Anxiety Last Admin: 05/09/18 23:45 Dose: 0.5 mg Aspirin (Aspirin Chewable) 81 mg PO DAILY [facility] Last Admin: 05/09/18 10:33 Dose: Not Given Calcium Acetate (Phoslo) 1,334 mg PO TIDCC [facility] Last Admin: 05/10/18 08:23 Dose: 1,334 mg Ferrous Sulfate (Feosol) 325 mg PO BID [facility] Last Admin: 05/09/18 18:04 Dose: 325 mg Vancomycin/Sodium Chloride (Vancomycin 1 Gm/Ns 200 Ml) 1 gm in 200 mls @ 133 mls/hr IVPB MWF [facility]; Protocol Stop: 05/12/18 17:01 Last Admin: 05/09/18 10:55 Dose: Not Given Cefazolin Sodium (Ancef) 1 gm in 50 mls @ 100 mls/hr IVPB Q24H [facility] Last Admin: 05/10/18 06:32 Dose: 100 mls/hr Metoprolol Tartrate (Lopressor) 12.5 mg PO BID [facility] Last Admin: 05/09/18 19:56 Dose: Not Given Oxycodone HCl (Oxycontin Extended Release Tab) 10 mg PO Q12 [facility] Stop: 05/11/18 22:01 Last Admin: 05/09/18 21:12 Dose: 10 mg Oxycodone/Acetaminophen (Percocet 5/325 Mg Tab) 2 tab PO Q6H PRN PRN Reason: Pain, moderate (4-7) Stop: 05/11/18 12:25 Last Admin: 05/10/18 08:29 Dose: 2 tab Pantoprazole Sodium (Protonix Ec Tab) 40 mg PO DAILY [facility] Last Admin: 05/09/18 10:34 Dose: Not Given Senna/Docusate Sodium (Senokot S 50 Mg-8.6 Mg) 2 tab PO BID [facility] Last Admin: 05/09/18 18:04 Dose: 2 tab Sevelamer Carbonate (Renvela) 2.4 gm PO TIDCC [facility] Last Admin: 05/10/18 08:23 Dose: 2.4 gm - Labs Labs: 05/07/18 07:58 05/07/18 07:58 APTT 38 SECONDS (21-34) H 05/03/18 23:27 - Constitutional Appears: Well, No Acute Distress - Head Exam Head Exam: ATRAUMATIC, NORMOCEPHALIC - Eye Exam Eye Exam: Normal appearance - Respiratory Exam Respiratory Exam: NORMAL BREATHING PATTERN - Cardiovascular Exam Cardiovascular Exam: RRR - GI/Abdominal Exam GI & Abdominal Exam: Soft, Tenderness (to the right of midline incision, incision clean/dry/intact, healing well ). absent: Distended, Guarding - Neurological Exam Neurological Exam: Alert, Awake, Oriented x3 - Skin Skin Exam: Dry, Warm Assessment and Plan - Assessment and Plan (Free Text) Assessment: 48M with persistent abdominal pain Plan: - CTA negative; celiac, SMA & GINI patent - no plan for further surgical intervention at this time - if pain persists; recommend GI eval for possible colonoscopy - d/w Dr. Lisa Carr
[2018-05-10] MEDS: Pantoprazole 40 mg EC Tab PO SCH (10:07)
[2018-05-10] MEDS: oxyCODONE 10 mg ER Tab (oxyCONTIN) PO SCH ×2 (10:07→21:45)
[2018-05-10] MEDS: Docusate-Senna 50 mg-8.6 mg Tab PO SCH ×2 (10:12→17:59)
--- NOTE | 2018-05-10 10:34 | CP.PCM.PN ---
Subjective - Date & Time of Evaluation Date of Evaluation: 05/10/18 Time of Evaluation: 10:32 - Subjective Subjective: Stable dialysis 05/09- UF 3400ml Afebrile on IV ABs no new complaint LEs still swollen Objective - Vital Signs/Intake and Output Vital Signs (last 24 hours): Temp Pulse Resp BP Pulse Ox 97.8 F 72 20 118/54 L 99 05/10/18 08:37 05/10/18 08:37 05/10/18 08:37 05/10/18 10:11 05/10/18 08:37 - Medications Medications: Current Medications Alprazolam (Xanax) 0.5 mg PO Q6 PRN PRN Reason: Anxiety Last Admin: 05/09/18 23:45 Dose: 0.5 mg Aspirin (Aspirin Chewable) 81 mg PO DAILY [facility] Last Admin: 05/10/18 10:07 Dose: 81 mg Calcium Acetate (Phoslo) 1,334 mg PO TIDCC [facility] Last Admin: 05/10/18 08:23 Dose: 1,334 mg Ferrous Sulfate (Feosol) 325 mg PO BID [facility] Last Admin: 05/10/18 10:07 Dose: 325 mg Vancomycin/Sodium Chloride (Vancomycin 1 Gm/Ns 200 Ml) 1 gm in 200 mls @ 133 mls/hr IVPB MWF [facility]; Protocol Stop: 05/12/18 17:01 Last Admin: 05/09/18 10:55 Dose: Not Given Cefazolin Sodium (Ancef) 1 gm in 50 mls @ 100 mls/hr IVPB Q24H [facility] Last Admin: 05/10/18 06:32 Dose: 100 mls/hr Metoprolol Tartrate (Lopressor) 12.5 mg PO BID [facility] Last Admin: 05/10/18 10:11 Dose: Not Given Oxycodone HCl (Oxycontin Extended Release Tab) 10 mg PO Q12 [facility] Stop: 05/11/18 22:01 Last Admin: 05/10/18 10:07 Dose: 10 mg Oxycodone/Acetaminophen (Percocet 5/325 Mg Tab) 2 tab PO Q6H PRN PRN Reason: Pain, moderate (4-7) Stop: 05/11/18 12:25 Last Admin: 05/10/18 08:29 Dose: 2 tab Pantoprazole Sodium (Protonix Ec Tab) 40 mg PO DAILY [facility] Last Admin: 05/10/18 10:07 Dose: 40 mg Senna/Docusate Sodium (Senokot S 50 Mg-8.6 Mg) 2 tab PO BID [facility] Last Admin: 05/10/18 10:12 Dose: Not Given Sevelamer Carbonate (Renvela) 2.4 gm PO TIDCC [facility] Last Admin: 05/10/18 08:23 Dose: 2.4 gm - Labs Labs: 05/07/18 07:58 05/07/18 07:58 APTT 38 SECONDS (21-34) H 05/03/18 23:27 - Constitutional Appears: No Acute Distress, Chronically Ill - Head Exam Head Exam: ATRAUMATIC, NORMAL INSPECTION - Eye Exam Eye Exam: EOMI, Normal appearance - Neck Exam Neck Exam: Normal Inspection. absent: Tenderness - Respiratory Exam Respiratory Exam: Clear to Ausculation Bilateral, NORMAL BREATHING PATTERN - Cardiovascular Exam Cardiovascular Exam: REGULAR RHYTHM, +S1 - GI/Abdominal Exam GI & Abdominal Exam: Soft. absent: Tenderness - Extremities Exam Extremities Exam: Pedal Edema. absent: Tenderness - Neurological Exam Neurological Exam: Awake, CN II-XII Intact - Skin Skin Exam: Dry, Warm Assessment and Plan (1) Fluid overload Status: Acute (2) ESRD (end stage renal disease) Status: Acute (3) Hypertensive CKD, ESRD on dialysis Status: Acute (4) Hypertensive chronic kidney disease with stage 5 chronic kidney disease or end stage renal disease Status: Acute (5) Xanthogranulomatous pyelonephritis Status: Acute (6) Bacteremia Status: Acute (7) SBE (subacute bacterial endocarditis) Status: Acute (8) Xanthogranulomatous pyelonephritis Status: Acute - Assessment and Plan (Free Text) Plan: IV ABs dialysis MWF
--- NOTE | 2018-05-10 14:50 | CP.PCM.PN ---
Subjective - Date & Time of Evaluation Date of Evaluation: 05/10/18 Time of Evaluation: 14:50 - Subjective Subjective: AFEBRILE, C/O B/L LE SWELLING. ON ANTIBIOTICS. SURGERY F/U NOTED. CT ANGIIO FINDINGS NOTED Objective - Vital Signs/Intake and Output Vital Signs (last 24 hours): Temp Pulse Resp BP Pulse Ox 97.8 F 72 20 118/54 L 99 05/10/18 08:37 05/10/18 08:37 05/10/18 08:37 05/10/18 10:11 05/10/18 08:37 - Medications Medications: Current Medications Alprazolam (Xanax) 0.5 mg PO Q6 PRN PRN Reason: Anxiety Last Admin: 05/09/18 23:45 Dose: 0.5 mg Aspirin (Aspirin Chewable) 81 mg PO DAILY [facility] Last Admin: 05/10/18 10:07 Dose: 81 mg Calcium Acetate (Phoslo) 1,334 mg PO TIDCC [facility] Last Admin: 05/10/18 13:16 Dose: Not Given Ferrous Sulfate (Feosol) 325 mg PO BID [facility] Last Admin: 05/10/18 10:07 Dose: 325 mg Vancomycin/Sodium Chloride (Vancomycin 1 Gm/Ns 200 Ml) 1 gm in 200 mls @ 133 mls/hr IVPB MWF [facility]; Protocol Stop: 05/12/18 17:01 Last Admin: 05/09/18 10:55 Dose: Not Given Cefazolin Sodium (Ancef) 1 gm in 50 mls @ 100 mls/hr IVPB Q24H [facility] Last Admin: 05/10/18 06:32 Dose: 100 mls/hr Metoprolol Tartrate (Lopressor) 12.5 mg PO BID [facility] Last Admin: 05/10/18 10:11 Dose: Not Given Oxycodone HCl (Oxycontin Extended Release Tab) 10 mg PO Q12 [facility] Stop: 05/11/18 22:01 Last Admin: 05/10/18 10:07 Dose: 10 mg Oxycodone/Acetaminophen (Percocet 5/325 Mg Tab) 2 tab PO Q6H PRN PRN Reason: Pain, moderate (4-7) Stop: 05/11/18 12:25 Last Admin: 05/10/18 14:36 Dose: 2 tab Pantoprazole Sodium (Protonix Ec Tab) 40 mg PO DAILY [facility] Last Admin: 05/10/18 10:07 Dose: 40 mg Senna/Docusate Sodium (Senokot S 50 Mg-8.6 Mg) 2 tab PO BID [facility] Last Admin: 05/10/18 10:12 Dose: Not Given Sevelamer Carbonate (Renvela) 2.4 gm PO TIDCC [facility] Last Admin: 05/10/18 13:16 Dose: Not Given - Labs Labs: 05/07/18 07:58 05/07/18 07:58 APTT 38 SECONDS (21-34) H 05/03/18 23:27 - Constitutional Appears: No Acute Distress - Head Exam Head Exam: NORMAL INSPECTION - Eye Exam Eye Exam: EOMI, PERRL - ENT Exam ENT Exam: Normal Oropharynx - Neck Exam Neck Exam: Normal Inspection - Respiratory Exam Respiratory Exam: Clear to Ausculation Bilateral, NORMAL BREATHING PATTERN - Cardiovascular Exam Cardiovascular Exam: REGULAR RHYTHM, +S1 - GI/Abdominal Exam GI & Abdominal Exam: Soft, Tenderness (MILD NEAR INCISION SITE LOWER END), Normal Bowel Sounds (MIDLINE SCAR WELL HEALED) - Extremities Exam Extremities Exam: Pedal Edema (2+VE) - Neurological Exam Neurological Exam: Awake, CN II-XII Intact, Normal Gait, Oriented x3, Reflexes Normal - Psychiatric Exam Psychiatric exam: Normal Mood - Skin Skin Exam: Dry, Normal Color, Warm Assessment and Plan (1) Bacteremia Status: Acute (2) SBE (subacute bacterial endocarditis) Status: Acute (3) Xanthogranulomatous pyelonephritis Status: Acute (4) Hypertensive CKD, ESRD on dialysis Status: Acute - Assessment and Plan (Free Text) Plan: REPEAT BLOOD CULTURES 05/09/18 2:2 SETS -VE X 48HRS. REPEAT BLOOD CULTURES 05/03/18 -VE GROWTH X 5DAYS ON iv CEFAZOLIN 1 G EVERY 24HRLY HOURLY 05/06/18. X 6WEEKS PER DISCUSSION WITH PHARMACY ACCORDING TO RENAL FUNCTION. HOLD VANCOMYCIN VANCO RANDOM REPEAT 31.5 (HIGH ) WILL REPEAT VANCOMYCIN RANDOM ON MONDAY POST HD PT AWAITING TRANSFER TO [facility] FOR AVR AND RT NEPHRECTOMY.
--- NOTE | 2018-05-11 00:56 | CP.PCM.PN ---
Subjective - Date & Time of Evaluation Date of Evaluation: 05/10/18 - Subjective Subjective: dictated Objective - Vital Signs/Intake and Output Vital Signs (last 24 hours): Temp Pulse Resp BP Pulse Ox 98.1 F 85 20 101/45 L 98 05/10/18 15:00 05/10/18 15:00 05/10/18 15:00 05/10/18 17:57 05/10/18 15:00 Intake and Output: 05/10/18 05/11/18 18:59 06:59 Intake Total 850 Balance 850 - Medications Medications: Current Medications Alprazolam (Xanax) 0.5 mg PO Q6 PRN PRN Reason: Anxiety Last Admin: 05/11/18 00:20 Dose: 0.5 mg Aspirin (Aspirin Chewable) 81 mg PO DAILY [facility] Last Admin: 05/10/18 10:07 Dose: 81 mg Calcium Acetate (Phoslo) 1,334 mg PO TIDCC [facility] Last Admin: 05/10/18 17:58 Dose: 1,334 mg Ferrous Sulfate (Feosol) 325 mg PO BID [facility] Last Admin: 05/10/18 17:58 Dose: 325 mg Vancomycin/Sodium Chloride (Vancomycin 1 Gm/Ns 200 Ml) 1 gm in 200 mls @ 133 mls/hr IVPB MWF [facility]; Protocol Stop: 05/12/18 17:01 Last Admin: 05/09/18 10:55 Dose: Not Given Cefazolin Sodium (Ancef) 1 gm in 50 mls @ 100 mls/hr IVPB Q24H [facility] Last Admin: 05/10/18 06:32 Dose: 100 mls/hr Metoprolol Tartrate (Lopressor) 12.5 mg PO BID [facility] Last Admin: 05/10/18 17:57 Dose: Not Given Oxycodone HCl (Oxycontin Extended Release Tab) 10 mg PO Q12 [facility] Stop: 05/11/18 22:01 Last Admin: 05/10/18 21:45 Dose: 10 mg Oxycodone/Acetaminophen (Percocet 5/325 Mg Tab) 2 tab PO Q6H PRN PRN Reason: Pain, moderate (4-7) Stop: 05/11/18 12:25 Last Admin: 05/10/18 14:36 Dose: 2 tab Pantoprazole Sodium (Protonix Ec Tab) 40 mg PO DAILY [facility] Last Admin: 05/10/18 10:07 Dose: 40 mg Senna/Docusate Sodium (Senokot S 50 Mg-8.6 Mg) 2 tab PO BID [facility] Last Admin: 05/10/18 17:59 Dose: Not Given Sevelamer Carbonate (Renvela) 2.4 gm PO TIDCC [facility] Last Admin: 05/10/18 17:57 Dose: 2.4 gm - Labs Labs: 05/07/18 07:58 05/07/18 07:58 APTT 38 SECONDS (21-34) H 05/03/18 23:27
[2018-05-11] MEDS: Oxycodone/Acetaminophen 5/325 mg Tab PO PRN ×2 (02:14→13:27)
[2018-05-11] MEDS ORDERED: DiphenhydrAMINE 50 mg/ml Inj IVP ONE (02:15)
[2018-05-11] MEDS: ceFAZolin 1 gm FROZEN Premix 1 GM/50 ML ML IVPB SCH (06:16)
--- NOTE | 2018-05-11 06:30 | PN ---
DATE: 05/11/2018 SUBJECTIVE: Wei Frank is afebrile. No shortness of breath. He has flank pain. He is on hemodialysis. He is on antibiotics. PHYSICAL EXAMINATION: VITAL SIGNS: Blood pressure 130/48, pulse 85, respiratory rate 20, and temperature 98.1. LUNGS: Clear. CARDIOVASCULAR SYSTEM: S1 and S2 regular. ABDOMEN: Soft. ASSESSMENT: 1. Chronic kidney disease, on hemodialysis. 2. Septicemia, on antibiotics. 3. Anxiety and depression. 4. Nephrolithiasis with chronic kidney disease. PLAN: Continue to monitor the patient. Mikel Marc MD
[2018-05-11 06:36] LABS: BASO # 0.1 K/uL (0.0-0.2); BASO % 1.3 % (0.0-2.0); EOS # 0.2 K/uL (0.0-0.7); EOS % 3.7 % (0.0-4.0); HEMOGLOBIN 9.6 g/dL (12.0-18.0); LYMPH # 1.5 K/uL (1.0-4.3); MEAN CELL VOLUME 95.9 fL (80.0-94.0); MEAN CORPUSCULAR HGB CONC 33.3 g/dL (33.0-37.0); MEAN PLATELET VOLUME 8.9 fL (7.2-11.7); MONO # 0.4 K/uL (0.0-0.8); MONO % 8.3 % (0.0-10.0); NEUT # 2.2 K/uL (1.8-7.0); NEUT % 50.7 % (50.0-75.0); NRBC % 0.1 % (0.0-2.0); RBC 3.01 Mil/uL (4.40-5.90); RED CELL DISTRIBUTION WIDTH 17.9 % (11.5-14.5); WHITE BLOOD COUNT 4.3 K/uL (4.8-10.8)
[2018-05-11 08:17] LABS: ALBUMIN 3.2 g/dL (3.5-5.0)
[2018-05-11] MEDS: Sevelamer Carb 2.4 gm/Packet PO SCH ×3 (09:12→19:11)
[2018-05-11] MEDS: oxyCODONE 10 mg ER Tab (oxyCONTIN) PO SCH ×2 (09:14→21:32)
[2018-05-11] MEDS: Docusate-Senna 50 mg-8.6 mg Tab PO SCH ×2 (09:16→19:12)
[2018-05-11] MEDS: Pantoprazole 40 mg EC Tab PO SCH (13:03)
--- NOTE | 2018-05-11 14:56 | CP.PCM.PN ---
Subjective - Date & Time of Evaluation Date of Evaluation: 05/11/18 Time of Evaluation: 14:55 - Subjective Subjective: Seen at dialysis To UF 4000ml Remains swollen;no other complaint Objective - Vital Signs/Intake and Output Vital Signs (last 24 hours): Temp Pulse Resp BP Pulse Ox 98 F 81 20 113/49 L 99 05/11/18 08:00 05/11/18 08:00 05/11/18 08:00 05/11/18 09:12 05/11/18 08:00 - Medications Medications: Current Medications Alprazolam (Xanax) 0.5 mg PO Q6 PRN PRN Reason: Anxiety Last Admin: 05/11/18 00:20 Dose: 0.5 mg Aspirin (Aspirin Chewable) 81 mg PO DAILY [facility] Last Admin: 05/11/18 09:10 Dose: 81 mg Calcium Acetate (Phoslo) 1,334 mg PO TIDCC [facility] Last Admin: 05/11/18 13:03 Dose: 1,334 mg Ferrous Sulfate (Feosol) 325 mg PO BID [facility] Last Admin: 05/11/18 09:11 Dose: 325 mg Cefazolin Sodium (Ancef) 1 gm in 50 mls @ 100 mls/hr IVPB Q24H [facility] Last Admin: 05/11/18 06:16 Dose: 100 mls/hr Vancomycin HCl 500 mg/ Sodium (Chloride) 100 mls @ 67 mls/hr IVPB MWF [facility]; Protocol Stop: 05/21/18 18:01 Metoprolol Tartrate (Lopressor) 12.5 mg PO BID [facility] Last Admin: 05/11/18 09:12 Dose: Not Given Oxycodone HCl (Oxycontin Extended Release Tab) 10 mg PO Q12 [facility] Stop: 05/11/18 22:01 Last Admin: 05/11/18 09:14 Dose: 10 mg Oxycodone/Acetaminophen (Percocet 5/325 Mg Tab) 2 tab PO Q6H PRN PRN Reason: pain Stop: 05/14/18 13:14 Last Admin: 05/11/18 13:27 Dose: 2 tab Pantoprazole Sodium (Protonix Ec Tab) 40 mg PO DAILY [facility] Last Admin: 05/11/18 13:03 Dose: 40 mg Senna/Docusate Sodium (Senokot S 50 Mg-8.6 Mg) 2 tab PO BID [facility] Last Admin: 05/11/18 09:16 Dose: Not Given Sevelamer Carbonate (Renvela) 2.4 gm PO TIDCC [facility] Last Admin: 05/11/18 13:03 Dose: 2.4 gm - Labs Labs: 05/11/18 06:30 05/11/18 06:30 APTT 38 SECONDS (21-34) H 05/03/18 23:27 - Constitutional Appears: No Acute Distress, Chronically Ill - Head Exam Head Exam: ATRAUMATIC, NORMAL INSPECTION - Eye Exam Eye Exam: EOMI, Normal appearance - Neck Exam Neck Exam: Normal Inspection. absent: Tenderness - Respiratory Exam Respiratory Exam: Clear to Ausculation Bilateral, NORMAL BREATHING PATTERN - Cardiovascular Exam Cardiovascular Exam: REGULAR RHYTHM, +S1 - GI/Abdominal Exam GI & Abdominal Exam: Soft. absent: Tenderness - Extremities Exam Extremities Exam: Pedal Edema. absent: Tenderness - Neurological Exam Neurological Exam: Awake, CN II-XII Intact - Skin Skin Exam: Dry, Warm Assessment and Plan (1) Fluid overload Status: Acute (2) ESRD (end stage renal disease) Status: Acute (3) Hypertensive CKD, ESRD on dialysis Status: Acute (4) Hypertensive chronic kidney disease with stage 5 chronic kidney disease or end stage renal disease Status: Acute (5) Xanthogranulomatous pyelonephritis Status: Acute (6) Bacteremia Status: Acute (7) SBE (subacute bacterial endocarditis) Status: Acute (8) Xanthogranulomatous pyelonephritis Status: Acute - Assessment and Plan (Free Text) Plan: Dialysis now and MWF IV ABs Await transfer for nephrectomy, valve surgery
--- NOTE | 2018-05-11 22:16 | CP.PCM.PN ---
Subjective - Date & Time of Evaluation Date of Evaluation: 05/11/18 Time of Evaluation: 22:16 - Subjective Subjective: AFEBRILE, SEEN ON HD (MW ) NO COMPLAINTS. STILL WITH LE EDEMA ON ABX. LAB; VANCO RANDOM LEVEL 21.3 Objective - Vital Signs/Intake and Output Vital Signs (last 24 hours): Temp Pulse Resp BP Pulse Ox 98 F 80 16 116/46 L 97 05/11/18 14:15 05/11/18 14:15 05/11/18 14:15 05/11/18 19:13 05/11/18 14:15 - Medications Medications: Current Medications Alprazolam (Xanax) 0.5 mg PO Q6 PRN PRN Reason: Anxiety Last Admin: 05/11/18 00:20 Dose: 0.5 mg Aspirin (Aspirin Chewable) 81 mg PO DAILY [facility] Last Admin: 05/11/18 09:10 Dose: 81 mg Calcium Acetate (Phoslo) 1,334 mg PO TIDCC [facility] Last Admin: 05/11/18 19:11 Dose: 1,334 mg Ferrous Sulfate (Feosol) 325 mg PO BID [facility] Last Admin: 05/11/18 19:12 Dose: 325 mg Cefazolin Sodium (Ancef) 1 gm in 50 mls @ 100 mls/hr IVPB Q24H [facility] Last Admin: 05/11/18 06:16 Dose: 100 mls/hr Vancomycin HCl 500 mg/ Sodium (Chloride) 100 mls @ 67 [facility]ls[facility]; Protocol Stop: 05/21/18 18:01 Last Admin: 05/11/18 19:12 Dose: 67 mls/hr Metoprolol Tartrate (Lopressor) 12.5 mg PO BID [facility] Last Admin: 05/11/18 19:13 Dose: Not Given Oxycodone/Acetaminophen (Percocet 5/325 Mg Tab) 2 tab PO Q6H PRN PRN Reason: pain Stop: 05/14/18 13:14 Last Admin: 05/11/18 13:27 Dose: 2 tab Pantoprazole Sodium (Protonix Ec Tab) 40 mg PO DAILY [facility] Last Admin: 05/11/18 13:03 Dose: 40 mg Senna/Docusate Sodium (Senokot S 50 Mg-8.6 Mg) 2 tab PO BID [facility] Last Admin: 05/11/18 19:12 Dose: Not Given Sevelamer Carbonate (Renvela) 2.4 gm PO TIDCC [facility] Last Admin: 05/11/18 19:11 Dose: 2.4 gm - Labs Labs: 05/11/18 06:30 05/11/18 06:30 APTT 38 SECONDS (21-34) H 05/03/18 23:27 - Constitutional Appears: No Acute Distress - Head Exam Head Exam: NORMAL INSPECTION - Eye Exam Eye Exam: EOMI - ENT Exam ENT Exam: Normal Oropharynx - Neck Exam Neck Exam: Normal Inspection - Respiratory Exam Respiratory Exam: Clear to Ausculation Bilateral, NORMAL BREATHING PATTERN - Cardiovascular Exam Cardiovascular Exam: Irregular Rhythm, +S1, +S2 - GI/Abdominal Exam GI & Abdominal Exam: Soft, Normal Bowel Sounds (MID LINE SCAR WELL HEALED.) - Extremities Exam Extremities Exam: Pedal Edema (2+). absent: Calf Tenderness - Neurological Exam Neurological Exam: Awake, CN II-XII Intact, Normal Gait, Oriented x3, Reflexes Normal - Psychiatric Exam Psychiatric exam: Normal Mood - Skin Skin Exam: Normal Color, Warm Assessment and Plan (1) Bacteremia Status: Acute (2) SBE (subacute bacterial endocarditis) Status: Acute (3) Xanthogranulomatous pyelonephritis Status: Acute (4) Hypertensive CKD, ESRD on dialysis Status: Acute - Assessment and Plan (Free Text) Plan: REPEAT BLOOD CULTURES 05/09/18 2:2 SETS -VE X 48HRS. REPEAT BLOOD CULTURES 05/03/18 -VE GROWTH X 5DAYS ON iv CEFAZOLIN 1 G EVERY 24HRLY HOURLY 05/06/18. X 6WEEKS PER DISCUSSION WITH PHARMACY ACCORDING TO RENAL FUNCTION. RESTART IV VANCOMYCIN 500MG IVPB POST EACH HD MWF X TOTAL OF 6WEEKS PT AWAITING TRANSFER TO [facility] FOR AVR FOR LEAKY VALVE AND RT NEPHRECTOMY. PER CARDIOLOGY DR DILLARD.
--- NOTE | 2018-05-11 23:55 | CP.PCM.PN ---
Subjective - Subjective Subjective: dictated Objective - Vital Signs/Intake and Output Vital Signs (last 24 hours): Temp Pulse Resp BP Pulse Ox 99.4 F 83 20 119/54 L 97 05/11/18 23:38 05/11/18 23:38 05/11/18 23:38 05/11/18 23:38 05/11/18 23:38 - Medications Medications: Current Medications Alprazolam (Xanax) 0.5 mg PO Q6 PRN PRN Reason: Anxiety Last Admin: 05/11/18 00:20 Dose: 0.5 mg Aspirin (Aspirin Chewable) 81 mg PO DAILY [facility] Last Admin: 05/11/18 09:10 Dose: 81 mg Calcium Acetate (Phoslo) 1,334 mg PO TIDCC [facility] Last Admin: 05/11/18 19:11 Dose: 1,334 mg Ferrous Sulfate (Feosol) 325 mg PO BID [facility] Last Admin: 05/11/18 19:12 Dose: 325 mg Cefazolin Sodium (Ancef) 1 gm in 50 mls @ 100 mls/hr IVPB Q24H [facility] Last Admin: 05/11/18 06:16 Dose: 100 mls/hr Vancomycin HCl 500 mg/ Sodium (Chloride) 100 mls @ 67 mls/hr IVPB MWF [facility]; Protocol Stop: 05/21/18 18:01 Last Admin: 05/11/18 19:12 Dose: 67 mls/hr Metoprolol Tartrate (Lopressor) 12.5 mg PO BID [facility] Last Admin: 05/11/18 19:13 Dose: Not Given Oxycodone/Acetaminophen (Percocet 5/325 Mg Tab) 2 tab PO Q6H PRN PRN Reason: pain Stop: 05/14/18 13:14 Last Admin: 05/11/18 13:27 Dose: 2 tab Pantoprazole Sodium (Protonix Ec Tab) 40 mg PO DAILY [facility] Last Admin: 05/11/18 13:03 Dose: 40 mg Senna/Docusate Sodium (Senokot S 50 Mg-8.6 Mg) 2 tab PO BID [facility] Last Admin: 05/11/18 19:12 Dose: Not Given Sevelamer Carbonate (Renvela) 2.4 gm PO TIDCC [facility] Last Admin: 05/11/18 19:11 Dose: 2.4 gm - Labs Labs: 05/11/18 06:30 05/11/18 06:30 APTT 38 SECONDS (21-34) H 05/03/18 23:27
[2018-05-12] MEDS: DiphenhydrAMINE 50 mg/ml Inj IVP PRN ×2 (01:01→22:43)
--- NOTE | 2018-05-12 04:19 | PN ---
DATE: 05/12/2018 SUBJECTIVE: The patient, Wei Frank, has bilateral flank pain. He is afebrile. He is on hemodialysis. No shortness of breath. No chest pain. Lower abdominal pain postop has improved. No fever. PHYSICAL EXAMINATION: VITAL SIGNS: Blood pressure 119/54, pulse 83, respiratory rate 20, temperature 99.4. LUNGS: Clear. CARDIOVASCULAR SYSTEM: S1, S2 regular. ABDOMEN: Soft. ASSESSMENT: 1. Septicemia. 2. Pyelonephritis. 3. Chronic kidney disease, on hemodialysis. 4. Anxiety. PLAN: Continue antibiotics. Monitor the patient. Mikel Marc MD
[2018-05-12] MEDS: ceFAZolin 1 gm FROZEN Premix 1 GM/50 ML ML IVPB SCH (06:20)
[2018-05-12 08:00] LABS: BASO % 1.1 % (0.0-2.0); EOS # 0.1 K/uL (0.0-0.7); EOS % 3.7 % (0.0-4.0); HEMOGLOBIN 9.7 g/dL (12.0-18.0); LYMPH # 1.3 K/uL (1.0-4.3); LYMPH % 33.8 % (20.0-40.0); MEAN CELL VOLUME 96.2 fL (80.0-94.0); MEAN CORPUSCULAR HEMOGLOBIN 31.9 pg (27.0-31.0); MEAN CORPUSCULAR HGB CONC 33.1 g/dL (33.0-37.0); MONO # 0.4 K/uL (0.0-0.8); MONO % 9.1 % (0.0-10.0); NEUT # 2.1 K/uL (1.8-7.0); NEUT % 52.3 % (50.0-75.0); NRBC % 0.1 % (0.0-2.0); RBC 3.03 Mil/uL (4.40-5.90)
[2018-05-12 08:18] LABS: ALBUMIN 3.2 g/dL (3.5-5.0); CALCIUM 8.8 mg/dl (8.6-10.4)
[2018-05-12] MEDS: Sevelamer Carb 2.4 gm/Packet PO SCH ×3 (09:16→17:02)
[2018-05-12] MEDS: Pantoprazole 40 mg EC Tab PO SCH (09:17)
[2018-05-12] MEDS: Docusate-Senna 50 mg-8.6 mg Tab PO SCH ×2 (09:17→17:28)
[2018-05-12] MEDS: Oxycodone/Acetaminophen 5/325 mg Tab PO PRN ×2 (09:20→18:04)
--- NOTE | 2018-05-12 09:34 | CP.PCM.PN ---
Subjective - Date & Time of Evaluation Date of Evaluation: 05/12/18 Time of Evaluation: 09:30 - Subjective Subjective: afebrile cbc chems noted comfortable in bed ate breakfast rt sided abd pain persists ROS no chilss fever no chest pain or sob abd pain,no n/v/d no dysuria Objective - Vital Signs/Intake and Output Vital Signs (last 24 hours): Temp Pulse Resp BP Pulse Ox 98.6 F 83 20 101/48 L 94 L 05/12/18 07:41 05/12/18 07:41 05/12/18 07:41 05/12/18 07:41 05/12/18 07:41 - Medications Medications: Current Medications Alprazolam (Xanax) 0.5 mg PO Q6 PRN PRN Reason: Anxiety Last Admin: 05/12/18 01:07 Dose: 0.5 mg Aspirin (Aspirin Chewable) 81 mg PO DAILY [facility] Last Admin: 05/12/18 09:17 Dose: 81 mg Calcium Acetate (Phoslo) 1,334 mg PO TIDCC [facility] Last Admin: 05/12/18 09:16 Dose: 1,334 mg Diphenhydramine HCl (Benadryl) 25 mg IVP Q12 PRN PRN Reason: Itching / Pruritus Last Admin: 05/12/18 01:01 Dose: 25 mg Ferrous Sulfate (Feosol) 325 mg PO BID [facility] Last Admin: 05/12/18 09:16 Dose: 325 mg Cefazolin Sodium (Ancef) 1 gm in 50 mls @ 100 mls/hr IVPB Q24H [facility] Last Admin: 05/12/18 06:20 Dose: 100 mls/hr Vancomycin HCl 500 mg/ Sodium (Chloride) 100 mls @ 67 mls/hr IVPB [facility]; Protocol Stop: 05/21/18 18:01 Last Admin: 05/11/18 19:12 Dose: 67 mls/hr Metoprolol Tartrate (Lopressor) 12.5 mg PO BID [facility] Last Admin: 05/12/18 09:17 Dose: Not Given Oxycodone/Acetaminophen (Percocet 5/325 Mg Tab) 2 tab PO Q6H PRN PRN Reason: pain Stop: 05/14/18 13:14 Last Admin: 05/12/18 09:20 Dose: 2 tab Pantoprazole Sodium (Protonix Ec Tab) 40 mg PO DAILY [facility] Last Admin: 05/12/18 09:17 Dose: 40 mg Senna/Docusate Sodium (Senokot S 50 Mg-8.6 Mg) 2 tab PO BID [facility] Last Admin: 05/12/18 09:17 Dose: Not Given Sevelamer Carbonate (Renvela) 2.4 gm PO TIDCC [facility] Last Admin: 05/12/18 09:16 Dose: 2.4 gm - Labs Labs: 05/12/18 07:41 05/12/18 07:41 APTT 38 SECONDS (21-34) H 05/03/18 23:27 - Constitutional Appears: Well, No Acute Distress - Eye Exam Eye Exam: absent: Conjunctival injection - ENT Exam ENT Exam: Mucous Membranes Moist - Respiratory Exam Respiratory Exam: Clear to Ausculation Bilateral - Cardiovascular Exam Cardiovascular Exam: REGULAR RHYTHM Additional comments: grade1-2sem - GI/Abdominal Exam GI & Abdominal Exam: Soft. absent: Distended Additional comments: tender rt side of abd - Extremities Exam Extremities Exam: absent: Calf Tenderness - Back Exam Back Exam: absent: CVA tenderness (L), CVA tenderness (R) Additional comments: no pre sacral edema - Neurological Exam Neurological Exam: Alert, Awake - Psychiatric Exam Psychiatric exam: Normal Affect - Skin Additional comments: 1-2+ leg edema Assessment and Plan (1) ESRD (end stage renal disease) Status: Acute (2) SBE (subacute bacterial endocarditis) Status: Acute (3) Xanthogranulomatous pyelonephritis Status: Acute (4) Abdominal pain Status: Acute (5) Chronic pyelonephritis Status: Acute - Assessment and Plan (Free Text) Plan: next dialysis tentatively 05/14 await scheduling rt nephrectomy
--- NOTE | 2018-05-12 14:43 | CP.PCM.PN ---
Subjective - Date & Time of Evaluation Date of Evaluation: 05/12/18 Time of Evaluation: 14:43 - Subjective Subjective: AFEBRILE, NO ACUTE EVENTS OVERNIGHT. B/L LE EDEMA PRESENT. ON HD MWF. TOLERATING iv ANTIBIOTICS. LABS REVIEWED, LFTS N. WBC 4.0 Objective - Vital Signs/Intake and Output Vital Signs (last 24 hours): Temp Pulse Resp BP Pulse Ox 98.6 F 83 20 101/48 L 94 L 05/12/18 07:41 05/12/18 07:41 05/12/18 07:41 05/12/18 07:41 05/12/18 07:41 Intake and Output: 05/12/18 05/12/18 06:59 18:59 Intake Total 800 Balance 800 - Medications Medications: Current Medications Alprazolam (Xanax) 0.5 mg PO Q6 PRN PRN Reason: Anxiety Last Admin: 05/12/18 01:07 Dose: 0.5 mg Aspirin (Aspirin Chewable) 81 mg PO DAILY [facility] Last Admin: 05/12/18 09:17 Dose: 81 mg Calcium Acetate (Phoslo) 1,334 mg PO TIDCC [facility] Last Admin: 05/12/18 13:01 Dose: 1,334 mg Diphenhydramine HCl (Benadryl) 25 mg IVP Q12 PRN PRN Reason: Itching / Pruritus Last Admin: 05/12/18 01:01 Dose: 25 mg Ferrous Sulfate (Feosol) 325 mg PO BID [facility] Last Admin: 05/12/18 09:16 Dose: 325 mg Cefazolin Sodium (Ancef) 1 gm in 50 mls @ 100 mls/hr IVPB Q24H [facility] Last Admin: 05/12/18 06:20 Dose: 100 mls/hr Vancomycin HCl 500 mg/ Sodium (Chloride) 100 mls @ 67 mls/hr IVPB MWF [facility]; Protocol Stop: 05/21/18 18:01 Last Admin: 05/11/18 19:12 Dose: 67 mls/hr Metoprolol Tartrate (Lopressor) 12.5 mg PO BID [facility] Last Admin: 05/12/18 09:17 Dose: Not Given Oxycodone/Acetaminophen (Percocet 5/325 Mg Tab) 2 tab PO Q6H PRN PRN Reason: pain Stop: 05/14/18 13:14 Last Admin: 05/12/18 09:20 Dose: 2 tab Pantoprazole Sodium (Protonix Ec Tab) 40 mg PO DAILY [facility] Last Admin: 05/12/18 09:17 Dose: 40 mg Senna/Docusate Sodium (Senokot S 50 Mg-8.6 Mg) 2 tab PO BID [facility] Last Admin: 05/12/18 09:17 Dose: Not Given Sevelamer Carbonate (Renvela) 2.4 gm PO TIDCC [facility] Last Admin: 05/12/18 13:01 Dose: 2.4 gm - Labs Labs: 05/12/18 07:41 05/12/18 07:41 APTT 38 SECONDS (21-34) H 05/03/18 23:27 - Constitutional Appears: No Acute Distress - Head Exam Head Exam: NORMAL INSPECTION - Eye Exam Eye Exam: EOMI, PERRL - ENT Exam ENT Exam: Normal Oropharynx - Respiratory Exam Respiratory Exam: Decreased Breath Sounds, NORMAL BREATHING PATTERN - Cardiovascular Exam Cardiovascular Exam: Irregular Rhythm, +S1, +S2 - GI/Abdominal Exam GI & Abdominal Exam: Soft, Normal Bowel Sounds (SCAR PREVIOUS SURGERY WELL HEALED) - Extremities Exam Extremities Exam: Normal Capillary Refill, Pedal Edema (2+VE ). absent: Calf Tenderness - Neurological Exam Neurological Exam: Alert, Awake, CN II-XII Intact, Normal Gait, Oriented x3, Reflexes Normal - Psychiatric Exam Psychiatric exam: Normal Mood - Skin Skin Exam: Normal Color, Warm Assessment and Plan (1) Bacteremia Status: Acute (2) SBE (subacute bacterial endocarditis) Status: Acute (3) Xanthogranulomatous pyelonephritis Status: Acute (4) Hypertensive CKD, ESRD on dialysis Status: Acute - Assessment and Plan (Free Text) Plan: REPEAT BLOOD CULTURES 05/09/18 2:2 SETS -VE X 48HRS. REPEAT BLOOD CULTURES 05/03/18 -VE GROWTH X 5DAYS ON iv CEFAZOLIN 1 G EVERY 24HRLY HOURLY 05/06/18. X 6WEEKS PER DISCUSSION WITH PHARMACY ACCORDING TO RENAL FUNCTION. ON IV VANCOMYCIN 500MG IVPB POST EACH HD MWF X TOTAL OF 6WEEKS PT AWAITING TRANSFER TO [facility] FOR AVR FOR LEAKY VALVE AND RT NEPHRECTOMY. PER CARDIOLOGY DR DILLARD.
--- NOTE | 2018-05-12 20:16 | CP.PCM.PN ---
Subjective - Subjective Subjective: dictated Objective - Vital Signs/Intake and Output Vital Signs (last 24 hours): Temp Pulse Resp BP Pulse Ox 98.8 F 82 20 105/37 L 97 05/12/18 15:10 05/12/18 15:10 05/12/18 15:10 05/12/18 17:28 05/12/18 15:10 Intake and Output: 05/12/18 05/13/18 18:59 06:59 Intake Total 800 Balance 800 - Medications Medications: Current Medications Alprazolam (Xanax) 0.5 mg PO Q6 PRN PRN Reason: Anxiety Last Admin: 05/12/18 01:07 Dose: 0.5 mg Aspirin (Aspirin Chewable) 81 mg PO DAILY [facility] Last Admin: 05/12/18 09:17 Dose: 81 mg Calcium Acetate (Phoslo) 1,334 mg PO TIDCC [facility] Last Admin: 05/12/18 17:01 Dose: 1,334 mg Diphenhydramine HCl (Benadryl) 25 mg IVP Q12 PRN PRN Reason: Itching / Pruritus Last Admin: 05/12/18 01:01 Dose: 25 mg Ferrous Sulfate (Feosol) 325 mg PO BID [facility] Last Admin: 05/12/18 17:28 Dose: 325 mg Cefazolin Sodium (Ancef) 1 gm in 50 mls @ 100 mls/hr IVPB Q24H [facility] Last Admin: 05/12/18 06:20 Dose: 100 mls/hr Vancomycin HCl 500 mg/ Sodium (Chloride) 100 mls @ 67 mls/hr IVPB MWF [facility]; Protocol Stop: 05/21/18 18:01 Last Admin: 05/11/18 19:12 Dose: 67 mls/hr Metoprolol Tartrate (Lopressor) 12.5 mg PO BID [facility] Last Admin: 05/12/18 17:28 Dose: Not Given Oxycodone/Acetaminophen (Percocet 5/325 Mg Tab) 2 tab PO Q6H PRN PRN Reason: pain Stop: 05/14/18 13:14 Last Admin: 05/12/18 18:04 Dose: 2 tab Pantoprazole Sodium (Protonix Ec Tab) 40 mg PO DAILY [facility] Last Admin: 05/12/18 09:17 Dose: 40 mg Senna/Docusate Sodium (Senokot S 50 Mg-8.6 Mg) 2 tab PO BID [facility] Last Admin: 05/12/18 17:28 Dose: Not Given Sevelamer Carbonate (Renvela) 2.4 gm PO TIDCC [facility] Last Admin: 05/12/18 17:02 Dose: 2.4 gm - Labs Labs: 05/12/18 07:41 05/12/18 07:41 APTT 38 SECONDS (21-34) H 05/03/18 23:27
--- NOTE | 2018-05-13 01:20 | PN ---
DATE: 05/12/2018 SUBJECTIVE: The patient is afebrile. No shortness of breath or chest pain. PHYSICAL EXAMINATION VITAL SIGNS: Blood pressure 108/45, pulse 82, respiratory rate 20, temperature 98.8. LUNGS: Clear. No rales. No rhonchi. CARDIOVASCULAR SYSTEM: S1, S2 regular. ABDOMEN: Soft and nontender. Bowel sounds are positive. Scar is clean and healed. ASSESSMENT: 1. Septicemia, on antibiotic. 2. Nephrolithiasis, rule out pyelonephritis. 3. Chronic kidney disease, on hemodialysis. Chronic kidney disease is due to nephrolithiasis. 4. Anxiety and depression. PLAN: Continue current medications. I will speak with the urologist at [facility] on Monday. Mikel Marc MD
[2018-05-13] MEDS: Oxycodone/Acetaminophen 5/325 mg Tab PO PRN ×3 (04:55→21:24)
[2018-05-13] MEDS: ceFAZolin 1 gm FROZEN Premix 1 GM/50 ML ML IVPB SCH (07:29)
[2018-05-13] MEDS: Sevelamer Carb 2.4 gm/Packet PO SCH ×3 (09:06→17:11)
[2018-05-13] MEDS: Pantoprazole 40 mg EC Tab PO SCH (09:06)
[2018-05-13] MEDS: Docusate-Senna 50 mg-8.6 mg Tab PO SCH ×2 (09:06→17:18)
--- NOTE | 2018-05-13 21:46 | CP.PCM.PN ---
Subjective - Subjective Subjective: dictated Objective - Vital Signs/Intake and Output Vital Signs (last 24 hours): Temp Pulse Resp BP Pulse Ox 98 F 84 20 121/45 L 97 05/13/18 15:57 05/13/18 15:57 05/13/18 15:57 05/13/18 17:55 05/13/18 15:57 Intake and Output: 05/13/18 05/14/18 18:59 06:59 Intake Total 800 Balance 800 - Medications Medications: Current Medications Alprazolam (Xanax) 0.5 mg PO Q6 PRN PRN Reason: Anxiety Last Admin: 05/13/18 17:15 Dose: 0.5 mg Aspirin (Aspirin Chewable) 81 mg PO DAILY [facility] Last Admin: 05/13/18 09:06 Dose: 81 mg Calcium Acetate (Phoslo) 1,334 mg PO TIDCC [facility] Last Admin: 05/13/18 17:11 Dose: 1,334 mg Diphenhydramine HCl (Benadryl) 25 mg IVP Q12 PRN PRN Reason: Itching / Pruritus Last Admin: 05/12/18 22:43 Dose: 25 mg Ferrous Sulfate (Feosol) 325 mg PO BID [facility] Last Admin: 05/13/18 17:11 Dose: 325 mg Cefazolin Sodium (Ancef) 1 gm in 50 mls @ 100 mls/hr IVPB Q24H [facility] Last Admin: 05/13/18 07:29 Dose: 100 mls/hr Vancomycin HCl 500 mg/ Sodium (Chloride) 100 mls @ 67 mls/hr IVPB MWF [facility]; Protocol Stop: 05/21/18 18:01 Last Admin: 05/11/18 19:12 Dose: 67 mls/hr Metoprolol Tartrate (Lopressor) 12.5 mg PO BID [facility] Last Admin: 05/13/18 17:55 Dose: Not Given Oxycodone/Acetaminophen (Percocet 5/325 Mg Tab) 2 tab PO Q6H PRN PRN Reason: pain Stop: 05/14/18 13:14 Last Admin: 05/13/18 21:24 Dose: 2 tab Pantoprazole Sodium (Protonix Ec Tab) 40 mg PO DAILY [facility] Last Admin: 05/13/18 09:06 Dose: 40 mg Senna/Docusate Sodium (Senokot S 50 Mg-8.6 Mg) 2 tab PO BID [facility] Last Admin: 05/13/18 17:18 Dose: Not Given Sevelamer Carbonate (Renvela) 2.4 gm PO TIDCC [facility] Last Admin: 05/13/18 17:11 Dose: 2.4 gm - Labs Labs: 05/12/18 07:41 05/12/18 07:41 APTT 38 SECONDS (21-34) H 05/03/18 23:27
[2018-05-14] MEDS: DiphenhydrAMINE 50 mg/ml Inj IVP PRN (00:45)
--- NOTE | 2018-05-14 02:38 | PN ---
DATE: 05/13/2018 SUBJECTIVE: Zac is feeling better. He is afebrile. Blood cultures are negative. No nausea or vomiting. Afebrile. PHYSICAL EXAMINATION: VITAL SIGNS: Blood pressure 121/45, pulse 84, respiratory rate 20, temperature 98. LUNGS: Clear. No rales. No rhonchi. CARDIOVASCULAR SYSTEM: S1 and S2 are regular. ABDOMEN: Soft. ASSESSMENT: 1. Septicemia. 2. Chronic kidney disease, on hemodialysis. 3. Nephrolithiasis. PLAN: Continue current medications. Monitor the patient. Mikel Marc MD
[2018-05-14] MEDS: ceFAZolin 1 gm FROZEN Premix 1 GM/50 ML ML IVPB SCH (07:02)
[2018-05-14] MEDS: Sevelamer Carb 2.4 gm/Packet PO SCH ×3 (08:55→18:22)
[2018-05-14] MEDS: Pantoprazole 40 mg EC Tab PO SCH (10:01)
[2018-05-14] MEDS: Docusate-Senna 50 mg-8.6 mg Tab PO SCH ×2 (10:02→18:28)
--- NOTE | 2018-05-14 12:26 | CP.PCM.PN ---
Subjective - Date & Time of Evaluation Date of Evaluation: 05/14/18 Time of Evaluation: 12:24 - Subjective Subjective: Feels same Afebrile course Remains on IV ABs For dialysis today Same LE edema Objective - Vital Signs/Intake and Output Vital Signs (last 24 hours): Temp Pulse Resp BP Pulse Ox 98 F 78 20 113/56 L 95 05/14/18 08:00 05/14/18 08:00 05/14/18 08:00 05/14/18 08:00 05/14/18 08:00 - Medications Medications: Current Medications Alprazolam (Xanax) 0.5 mg PO Q6 PRN PRN Reason: Anxiety Last Admin: 05/14/18 00:45 Dose: 0.5 mg Aspirin (Aspirin Chewable) 81 mg PO DAILY [facility] Last Admin: 05/14/18 10:01 Dose: 81 mg Calcium Acetate (Phoslo) 1,334 mg PO TIDCC [facility] Last Admin: 05/14/18 08:50 Dose: 1,334 mg Diphenhydramine HCl (Benadryl) 25 mg IVP Q12 PRN PRN Reason: Itching / Pruritus Last Admin: 05/14/18 00:45 Dose: 25 mg Ferrous Sulfate (Feosol) 325 mg PO BID [facility] Last Admin: 05/14/18 10:01 Dose: 325 mg Cefazolin Sodium (Ancef) 1 gm in 50 mls @ 100 mls/hr IVPB Q24H [facility] Last Admin: 05/14/18 07:02 Dose: 100 mls/hr Vancomycin HCl 500 mg/ Sodium (Chloride) 100 mls @ 67 [facility]ls[facility] P rotocol Stop: 05/21/18 18:01 Last Admin: 05/11/18 19:12 Dose: 67 mls/hr Metoprolol Tartrate (Lopressor) 12.5 mg PO BID [facility] Last Admin: 05/14/18 10:02 Dose: Not Given Oxycodone/Acetaminophen (Percocet 5/325 Mg Tab) 2 tab PO Q6H PRN PRN Reason: pain Stop: 05/14/18 13:14 Last Admin: 05/13/18 21:24 Dose: 2 tab Pantoprazole Sodium (Protonix Ec Tab) 40 mg PO DAILY [facility] Last Admin: 05/14/18 10:01 Dose: 40 mg Senna/Docusate Sodium (Senokot S 50 Mg-8.6 Mg) 2 tab PO BID [facility] Last Admin: 05/14/18 10:02 Dose: Not Given Sevelamer Carbonate (Renvela) 2.4 gm PO TIDCC [facility] Last Admin: 05/14/18 08:55 Dose: 2.4 gm - Labs Labs: 05/12/18 07:41 05/12/18 07:41 APTT 38 SECONDS (21-34) H 05/03/18 23:27 - Constitutional Appears: No Acute Distress, Chronically Ill - Head Exam Head Exam: ATRAUMATIC, NORMAL INSPECTION - Eye Exam Eye Exam: EOMI, Normal appearance - Neck Exam Neck Exam: Normal Inspection. absent: Tenderness - Respiratory Exam Respiratory Exam: Clear to Ausculation Bilateral, NORMAL BREATHING PATTERN - Cardiovascular Exam Cardiovascular Exam: REGULAR RHYTHM, +S1, Murmur - GI/Abdominal Exam GI & Abdominal Exam: Soft. absent: Tenderness - Extremities Exam Extremities Exam: Pedal Edema. absent: Tenderness - Neurological Exam Neurological Exam: Awake, CN II-XII Intact - Skin Skin Exam: Dry, Warm Assessment and Plan (1) Fluid overload Status: Acute (2) ESRD (end stage renal disease) Status: Acute (3) Hypertensive CKD, ESRD on dialysis Status: Acute (4) Hypertensive chronic kidney disease with stage 5 chronic kidney disease or end stage renal disease Status: Acute (5) Xanthogranulomatous pyelonephritis Status: Acute (6) Bacteremia Status: Acute (7) SBE (subacute bacterial endocarditis) Status: Acute (8) Xanthogranulomatous pyelonephritis Status: Acute - Assessment and Plan (Free Text) Plan: Dialysis MWF IV ABs Await nephrectomy arrangements
--- NOTE | 2018-05-14 12:38 | CP.PCM.PN ---
<Iban Barba - Last Filed: 05/14/18 12:39> Subjective - Date & Time of Evaluation Date of Evaluation: 05/14/18 Time of Evaluation: 12:30 - Subjective Subjective: Iban Barba DO, PGY-1 Cardiology Progress Note for Dr. Schultz Patient was seen and examined at bedside. He offers no new complaints and reports he feels ready to be transferred to [place]. Objective - Vital Signs/Intake and Output Vital Signs (last 24 hours): Temp Pulse Resp BP Pulse Ox 98 F 78 20 113/56 L 95 05/14/18 08:00 05/14/18 08:00 05/14/18 08:00 05/14/18 08:00 05/14/18 08:00 - Medications Medications: Current Medications Alprazolam (Xanax) 0.5 mg PO Q6 PRN PRN Reason: Anxiety Last Admin: 05/14/18 00:45 Dose: 0.5 mg Aspirin (Aspirin Chewable) 81 mg PO DAILY [facility] Last Admin: 05/14/18 10:01 Dose: 81 mg Calcium Acetate (Phoslo) 1,334 mg PO TIDCC [facility] Last Admin: 05/14/18 08:50 Dose: 1,334 mg Diphenhydramine HCl (Benadryl) 25 mg IVP Q12 PRN PRN Reason: Itching / Pruritus Last Admin: 05/14/18 00:45 Dose: 25 mg Ferrous Sulfate (Feosol) 325 mg PO BID [facility] Last Admin: 05/14/18 10:01 Dose: 325 mg Cefazolin Sodium (Ancef) 1 gm in 50 mls @ 100 mls/hr IVPB Q24H [facility] Last Admin: 05/14/18 07:02 Dose: 100 mls/hr Vancomycin HCl 500 mg/ Sodium (Chloride) 100 mls @ 67 mls/hr IVPB [facility] [place]; Protocol Stop: 05/21/18 18:01 Last Admin: 05/11/18 19:12 Dose: 67 mls/hr Metoprolol Tartrate (Lopressor) 12.5 mg PO BID [facility] Last Admin: 05/14/18 10:02 Dose: Not Given Oxycodone/Acetaminophen (Percocet 5/325 Mg Tab) 2 tab PO Q6H PRN PRN Reason: pain Stop: 05/14/18 13:14 Last Admin: 05/13/18 21:24 Dose: 2 tab Pantoprazole Sodium (Protonix Ec Tab) 40 mg PO DAILY [facility] Last Admin: 05/14/18 10:01 Dose: 40 mg Senna/Docusate Sodium (Senokot S 50 Mg-8.6 Mg) 2 tab PO BID [facility] Last Admin: 05/14/18 10:02 Dose: Not Given Sevelamer Carbonate (Renvela) 2.4 gm PO TIDCC [facility] Last Admin: 05/14/18 08:55 Dose: 2.4 gm - Labs Labs: 05/12/18 07:41 05/12/18 07:41 APTT 38 SECONDS (21-34) H 05/03/18 23:27 - Constitutional Appears: Non-toxic, No Acute Distress - Head Exam Head Exam: ATRAUMATIC, NORMOCEPHALIC - Eye Exam Eye Exam: EOMI, Normal appearance, PERRL - ENT Exam ENT Exam: Mucous Membranes Moist - Neck Exam Neck Exam: Full ROM, Normal Inspection - Respiratory Exam Respiratory Exam: Clear to Ausculation Bilateral, NORMAL BREATHING PATTERN. absent: Rales, Rhonchi, Wheezes - Cardiovascular Exam Cardiovascular Exam: Diastolic murmur (loudest at right upper sternal border, unchanged from prior exams), REGULAR RHYTHM, +S1. absent: Gallop, Rubs - GI/Abdominal Exam GI & Abdominal Exam: Soft, Normal Bowel Sounds - Neurological Exam Neurological Exam: Alert, Awake, Oriented x3 - Psychiatric Exam Psychiatric exam: Normal Affect, Normal Mood - Skin Skin Exam: Dry, Intact, Warm Assessment and Plan - Assessment and Plan (Free Text) Assessment: 48 yo M with PMH of ESRD (M,W,F hemodialysis), severe aortic valve insufficiency, prior episode of endocarditis, HTN, anxiety, anemia, seizure disorder, hepatitis C, IVDA (last use 2014), PE (previously on Coumadin) present ed to [facility] ED with L-sided CP. He was subsequently found to have severe aortic regurgitation on echo and mobile mass on aortic valve left cusp c/w vegetation. Blood cx are now negative x 5 days. Ready to be transferred to [place]. Plan: 1. Severe aortic regurgitation Plan on transfer to [place] for nephrectomy and aortic valve replacement after resolution of endocarditis/vegetation Blood cx negative x 5 days Will discuss with primary, ready for transfer from cardiology standpoint Dr. Schultz will continue to follow at [place] 2. Aortic valve vegetation/endocarditis Blood cx this admission negative to date Continue vanc/ancef at [place] 3. HFpEF with severe pulmonary HTN Continue lopressor 25 mg BID Aortic valve replacement at [place] planned 4. Persistent troponin elevation Likely 2/2 demand ischemia and valve tissue necrosis from severe aortic regurgitation in the setting of ESRD Has not increased from baseline since admission Case and plan reviewed and discussed with my attending Dr. Antoine Barba DO IM Resident PGY-1 <Naresh Schultz - Last Filed: 05/14/18 15:43> Objective - Vital Signs/Intake and Output Vital Signs (last 24 hours): Temp Pulse Resp BP Pulse Ox 98.5 F 83 16 97/39 L 96 05/14/18 13:50 05/14/18 13:50 05/14/18 13:50 05/14/18 15:05 05/14/18 13:50 Intake and Output: 05/14/18 05/14/18 06:59 18:59 Intake Total 800 Balance 800 - Medications Medications: Current Medications Alprazolam (Xanax) 0.5 mg PO Q6 PRN PRN Reason: Anxiety Last Admin: 05/14/18 00:45 Dose: 0.5 mg Aspirin (Aspirin Chewable) 81 mg PO DAILY [facility] Last Admin: 05/14/18 10:01 Dose: 81 mg Calcium Acetate (Phoslo) 1,334 mg PO TIDCC [facility] Last Admin: 05/14/18 13:05 Dose: 1,334 mg Diphenhydramine HCl (Benadryl) 25 mg IVP Q12 PRN PRN Reason: Itching / Pruritus Last Admin: 05/14/18 00:45 Dose: 25 mg Ferrous Sulfate (Feosol) 325 mg PO BID [facility] Last Admin: 05/14/18 10:01 Dose: 325 mg Cefazolin Sodium (Ancef) 1 gm in 50 mls @ 100 mls/hr IVPB Q24H [facility] Last Admin: 05/14/18 07:02 Dose: 100 mls/hr Vancomycin HCl 500 mg/ Sodium (Chloride) 100 mls @ 67 mls/hr IVPB [facility] [place]; Protocol Stop: 05/21/18 18:01 Last Admin: 05/11/18 19:12 Dose: 67 mls/hr Metoprolol Tartrate (Lopressor) 12.5 mg PO BID [facility] Last Admin: 05/14/18 10:02 Dose: Not Given Pantoprazole Sodium (Protonix Ec Tab) 40 mg PO DAILY [facility] Last Admin: 05/14/18 10:01 Dose: 40 mg Senna/Docusate Sodium (Senokot S 50 Mg-8.6 Mg) 2 tab PO BID [facility] Last Admin: 05/14/18 10:02 Dose: Not Given Sevelamer Carbonate (Renvela) 2.4 gm PO TIDCC [facility] Last Admin: 05/14/18 13:05 Dose: 2.4 gm - Labs Labs: 05/12/18 07:41 05/12/18 07:41 APTT 38 SECONDS (21-34) H 05/03/18 23:27 Attending/Attestation - Attestation I have personally seen and examined this patient.: Yes I have fully participated in the care of the patient.: Yes I have reviewed all pertinent clinical information, including history, physical exam and plan: Yes
--- NOTE | 2018-05-14 20:15 | CP.PCM.PN ---
Subjective - Date & Time of Evaluation Date of Evaluation: 05/14/18 Time of Evaluation: 20:15 - Subjective Subjective: AFEBRILE, NO ACUTE EVENTS OVERNIGHT. B/L LE EDEMA PRESENT. ON HD TODAY TOLERATING iv ANTIBIOTICS. REPEAT BLOOD CULTURES 05/09/18 2:2 SETS -VE X TO DATE REPEAT BLOOD CULTURES 05/03/18 -VE GROWTH X 5DAYS Objective - Vital Signs/Intake and Output Vital Signs (last 24 hours): Temp Pulse Resp BP Pulse Ox 98.5 F 83 16 105/44 L 96 05/14/18 13:50 05/14/18 13:50 05/14/18 13:50 05/14/18 18:29 05/14/18 13:50 Intake and Output: 05/14/18 05/15/18 18:59 06:59 Intake Total 800 Balance 800 - Medications Medications: Current Medications Alprazolam (Xanax) 0.5 mg PO Q6 PRN PRN Reason: Anxiety Last Admin: 05/14/18 00:45 Dose: 0.5 mg Aspirin (Aspirin Chewable) 81 mg PO DAILY [facility] 234 BEDS AT [facility] Last Admin: 05/14/18 10:01 Dose: 81 mg Calcium Acetate (Phoslo) 1,334 mg PO TIDCC COUNTS INCLUDE 234 BEDS AT THE [facility] Last Admin: 05/14/18 18:22 Dose: 1,334 mg Diphenhydramine HCl (Benadryl) 25 mg IVP Q12 PRN PRN Reason: Itching / Pruritus Last Admin: 05/14/18 00:45 Dose: 25 mg Ferrous Sulfate (Feosol) 325 mg PO BID [facility]S INCLUDE 234 BEDS AT THE [facility] Last Admin: 05/14/18 18:22 Dose: 325 mg Cefazolin Sodium (Ancef) 1 gm in 50 mls @ 100 mls/hr IVPB Q24H COUNTS INCLUDE 234 BEDS AT THE [facility] Last Admin: 05/14/18 07:02 Dose: 100 mls/hr Vancomycin HCl 500 mg/ Sodium (Chloride) 100 mls @ 67 mls/hr IVPB MWF COUNTS INCLUDE 234 BEDS AT THE [facility]; Protocol Stop: 05/21/18 18:01 Last Admin: 05/14/18 18:27 Dose: 67 mls/hr Metoprolol Tartrate (Lopressor) 12.5 mg PO BID COUNTS INCLUDE 234 BEDS AT THE [facility] Last Admin: 05/14/18 18:29 Dose: Not Given Pantoprazole Sodium (Protonix Ec Tab) 40 mg PO DAILY COUNTS INCLUDE 234 BEDS AT THE [facility] Last Admin: 05/14/18 10:01 Dose: 40 mg Senna/Docusate Sodium (Senokot S 50 Mg-8.6 Mg) 2 tab PO BID COUNTS INCLUDE 234 BEDS AT THE [facility] Last Admin: 05/14/18 18:28 Dose: Not Given Sevelamer Carbonate (Renvela) 2.4 gm PO TIDCC COUNTS INCLUDE 234 BEDS AT THE [facility] Last Admin: 05/14/18 18:22 Dose: 2.4 gm - Labs Labs: 05/12/18 07:41 05/12/18 07:41 APTT 38 SECONDS (21-34) H 05/03/18 23:27 - Constitutional Appears: No Acute Distress - Head Exam Head Exam: NORMAL INSPECTION - Eye Exam Eye Exam: EOMI, PERRL - ENT Exam ENT Exam: Normal Oropharynx - Neck Exam Neck Exam: Normal Inspection - Respiratory Exam Respiratory Exam: Decreased Breath Sounds (B/L BASES.), NORMAL BREATHING PATTERN - Cardiovascular Exam Cardiovascular Exam: REGULAR RHYTHM, +S1, +S2 - GI/Abdominal Exam GI & Abdominal Exam: Soft, Normal Bowel Sounds. absent: Tenderness (SCAR OF PREVIOUS SURGERY WELL HEALED.) - Extremities Exam Extremities Exam: Pedal Edema. absent: Calf Tenderness - Neurological Exam Neurological Exam: Awake, CN II-XII Intact, Normal Gait, Oriented x3, Reflexes Normal - Psychiatric Exam Psychiatric exam: Normal Mood - Skin Skin Exam: Normal Color, Warm Assessment and Plan (1) Bacteremia Status: Acute (2) SBE (subacute bacterial endocarditis) Status: Acute (3) Xanthogranulomatous pyelonephritis Status: Acute (4) Hypertensive CKD, ESRD on dialysis Status: Acute - Assessment and Plan (Free Text) Plan: ON iv CEFAZOLIN 1 G EVERY 24HRLY HOURLY 05/06/18. X 6WEEKS PER DISCUSSION WITH PHARMACY ACCORDING TO RENAL FUNCTION. ON IV VANCOMYCIN 500MG IVPB POST EACH HD MWF X TOTAL OF 6WEEKS PT AWAITING TRANSFER TO [facility] FOR AVR FOR LEAKY VALVE AND RT NEPHRECTOMY. PER CARDIOLOGY DR DILLARD.
--- NOTE | 2018-05-14 21:55 | CP.PCM.PN ---
Subjective - Subjective Subjective: dictated Objective - Vital Signs/Intake and Output Vital Signs (last 24 hours): Temp Pulse Resp BP Pulse Ox 98.1 F 84 18 105/44 L 98 05/14/18 18:00 05/14/18 18:00 05/14/18 18:00 12 18:29 05/14/18 18:00 Intake and Output: 05/14/18 05/15/18 18:59 06:59 Intake Total 800 Balance 800 - Medications Medications: Current Medications Alprazolam (Xanax) 0.5 mg PO Q6 PRN PRN Reason: Anxiety Last Admin: 05/14/18 00:45 Dose: 0.5 mg Aspirin (Aspirin Chewable) 81 mg PO DAILY [facility] Last Admin: 05/14/18 10:01 Dose: 81 mg Calcium Acetate (Phoslo) 1,334 mg PO TIDCC [facility] Last Admin: 05/14/18 18:22 Dose: 1,334 mg Diphenhydramine HCl (Benadryl) 25 mg IVP Q12 PRN PRN Reason: Itching / Pruritus Last Admin: 05/14/18 00:45 Dose: 25 mg Ferrous Sulfate (Feosol) 325 mg PO BID [facility] Last Admin: 05/14/18 18:22 Dose: 325 mg Cefazolin Sodium (Ancef) 1 gm in 50 mls @ 100 mls/hr IVPB Q24H [facility] Last Admin: 05/14/18 07:02 Dose: 100 mls/hr Vancomycin HCl 500 mg/ Sodium (Chloride) 100 mls @ 67 mls/hr IVPB [facility]; Protocol Stop: 05/21/18 18:01 Last Admin: 05/14/18 18:27 Dose: 67 mls/hr Metoprolol Tartrate (Lopressor) 12.5 mg PO BID [facility] Last Admin: 05/14/18 18:29 Dose: Not Given Oxycodone/Acetaminophen (Percocet 5/325 Mg Tab) 2 tab PO Q6H PRN PRN Reason: Pain, severe (8-10) Stop: 05/17/18 21:29 Pantoprazole Sodium (Protonix Ec Tab) 40 mg PO DAILY [facility] Last Admin: 05/14/18 10:01 Dose: 40 mg Senna/Docusate Sodium (Senokot S 50 Mg-8.6 Mg) 2 tab PO BID [facility] Last Admin: 05/14/18 18:28 Dose: Not Given Sevelamer Carbonate (Renvela) 2.4 gm PO TIDCC [facility] Last Admin: 05/14/18 18:22 Dose: 2.4 gm - Labs Labs: 05/12/18 07:41 05/12/18 07:41 APTT 38 SECONDS (21-34) H 05/03/18 23:27
[2018-05-15] MEDS: DiphenhydrAMINE 50 mg/ml Inj IVP PRN (00:07)
--- NOTE | 2018-05-15 03:48 | PN ---
DATE: 05/14/2018 SUBJECTIVE: Zac is afebrile. He has bilateral flank and lower abdominal pain. No nausea, vomiting. No chills. No fever. No diarrhea. PHYSICAL EXAMINATION: VITAL SIGNS: Blood pressure 105/44, pulse 64, respiratory rate 18, temperature 98.1. LUNGS: Clear. CARDIOVASCULAR EXAM: S1, S2, regular. ABDOMEN: Soft. ASSESSMENT: 1. Septicemia antibiotic. 2. Valvular heart disease, aortic valve replacement. 3. Chronic kidney disease, on hemodialysis. 4. Nephrolithiasis. PLAN: Cardiac consult. Monitor the patient. Mikel Marc MD
[2018-05-15] MEDS: ceFAZolin 1 gm FROZEN Premix 1 GM/50 ML ML IVPB SCH (06:11)
[2018-05-15] MEDS: Sevelamer Carb 2.4 gm/Packet PO SCH ×3 (09:30→18:04)
[2018-05-15] MEDS: Pantoprazole 40 mg EC Tab PO SCH (09:30)
[2018-05-15] MEDS: Docusate-Senna 50 mg-8.6 mg Tab PO SCH ×2 (09:31→18:05)
[2018-05-15] MEDS: Oxycodone/Acetaminophen 5/325 mg Tab PO PRN (09:55)
--- NOTE | 2018-05-15 13:03 | CP.PCM.PN ---
Subjective - Date & Time of Evaluation Date of Evaluation: 05/15/18 Time of Evaluation: 13:00 - Subjective Subjective: seen and examined no events afebrile, last blood cx neg denies any f/c/sob/dizziness/cp/n/v/d same leg swelling Objective - Vital Signs/Intake and Output Vital Signs (last 24 hours): Temp Pulse Resp BP Pulse Ox 98.0 F 80 20 95/50 L 93 L 05/15/18 07:10 05/15/18 07:10 05/15/18 07:10 05/15/18 07:10 05/15/18 07:10 - Medications Medications: Current Medications Alprazolam (Xanax) 0.5 mg PO Q6 PRN PRN Reason: Anxiety Last Admin: 05/15/18 06:11 Dose: 0.5 mg Aspirin (Aspirin Chewable) 81 mg PO DAILY [facility] Last Admin: 05/15/18 09:30 Dose: 81 mg Calcium Acetate (Phoslo) 1,334 mg PO TIDCC [facility] Last Admin: 05/15/18 09:30 Dose: 1,334 mg Diphenhydramine HCl (Benadryl) 25 mg IVP Q12 PRN PRN Reason: Itching / Pruritus Last Admin: 05/15/18 00:07 Dose: 25 mg Ferrous Sulfate (Feosol) 325 mg PO BID [facility] Last Admin: 05/15/18 09:30 Dose: 325 mg Cefazolin Sodium (Ancef) 1 gm in 50 mls @ 100 mls/hr IVPB Q24H [facility] Last Admin: 05/15/18 06:11 Dose: 100 mls/hr Vancomycin HCl 500 mg/ Sodium (Chloride) 100 mls @ 67 [facility]ls[facility]; Protocol Stop: 05/21/18 18:01 Last Admin: 05/14/18 18:27 Dose: 67 mls/hr Metoprolol Tartrate (Lopressor) 12.5 mg PO BID [facility] Last Admin: 05/15/18 09:31 Dose: Not Given Oxycodone/Acetaminophen (Percocet 5/325 Mg Tab) 2 tab PO Q6H PRN PRN Reason: Pain, severe (8-10) Stop: 05/17/18 21:29 Last Admin: 05/15/18 09:55 Dose: 2 tab Pantoprazole Sodium (Protonix Ec Tab) 40 mg PO DAILY [facility] Last Admin: 05/15/18 09:30 Dose: 40 mg Senna/Docusate Sodium (Senokot S 50 Mg-8.6 Mg) 2 tab PO BID [facility] Last Admin: 05/15/18 09:31 Dose: Not Given Sevelamer Carbonate (Renvela) 2.4 gm PO TIDCC [facility] Last Admin: 05/15/18 09:30 Dose: 2.4 gm - Labs Labs: 05/12/18 07:41 05/12/18 07:41 APTT 38 SECONDS (21-34) H 05/03/18 23:27 - Constitutional Appears: No Acute Distress, Chronically Ill - Head Exam Head Exam: NORMAL INSPECTION, NORMOCEPHALIC - Eye Exam Eye Exam: Normal appearance, PERRL Pupil Exam: PERRL - ENT Exam ENT Exam: Mucous Membranes Moist, Normal Exam - Neck Exam Neck Exam: Full ROM, Normal Inspection - Respiratory Exam Respiratory Exam: Clear to Ausculation Bilateral, NORMAL BREATHING PATTERN - Cardiovascular Exam Cardiovascular Exam: REGULAR RHYTHM, RRR - GI/Abdominal Exam GI & Abdominal Exam: Distended, Soft - Extremities Exam Extremities Exam: Full ROM, Normal Inspection, Pedal Edema - Back Exam Back Exam: NORMAL INSPECTION - Neurological Exam Neurological Exam: Alert, Awake, Oriented x3 - Psychiatric Exam Psychiatric exam: Normal Affect, Normal Mood - Skin Skin Exam: Dry, Intact, Warm Assessment and Plan (1) Bacteremia Status: Acute (2) ESRD (end stage renal disease) Status: Acute (3) SBE (subacute bacterial endocarditis) Status: Acute (4) Xanthogranulomatous pyelonephritis Status: Acute (5) Atrial fibrillation Status: Acute - Assessment and Plan (Free Text) Assessment: hd mwf antibiotics per ID await transfer to [facility]
--- NOTE | 2018-05-15 23:52 | CP.PCM.PN ---
Subjective - Date & Time of Evaluation Date of Evaluation: 05/15/18 Time of Evaluation: 23:52 - Subjective Subjective: AFEBRILE, NO ACUTE EVENTS OVERNIGHT. B/L LE EDEMA PRESENT. STATES HE FEELS VERY WEAK. AMBULATING WITH A CANE TOLERATING iv ANTIBIOTICS FOR STREPTOCOCCUS MITIS BACTEREMIA/AV-ENDOCARDITIS ON IV CEFAZOLIN AND IV VANCOMYCIN POST HD MWF REPEAT BLOOD CULTURES 05/09/18 2:2 SETS -VE X TO DATE REPEAT BLOOD CULTURES 05/03/18 -VE GROWTH X 5DAYS Objective - Vital Signs/Intake and Output Vital Signs (last 24 hours): Temp Pulse Resp BP Pulse Ox 97.5 F L 81 20 102/51 L 96 05/15/18 16:00 05/15/18 16:00 05/15/18 16:00 05/15/18 16:00 05/15/18 16:00 Intake and Output: 05/15/18 05/16/18 18:59 06:59 Intake Total 800 Balance 800 - Medications Medications: Current Medications Alprazolam (Xanax) 0.5 mg PO Q6 PRN PRN Reason: Anxiety Last Admin: 05/15/18 06:11 Dose: 0.5 mg Aspirin (Aspirin Chewable) 81 mg PO DAILY [facility] Last Admin: 05/15/18 09:30 Dose: 81 mg Calcium Acetate (Phoslo) 1,334 mg PO TIDCC [facility] Last Admin: 05/15/18 18:04 Dose: 1,334 mg Diphenhydramine HCl (Benadryl) 25 mg IVP Q12 PRN PRN Reason: Itching / Pruritus Last Admin: 05/15/18 00:07 Dose: 25 mg Ferrous Sulfate (Feosol) 325 mg PO BID [facility] Last Admin: 05/15/18 18:07 Dose: 325 mg Cefazolin Sodium (Ancef) 1 gm in 50 mls @ 100 mls/hr IVPB Q24H [facility] Last Admin: 05/15/18 06:11 Dose: 100 mls/hr Vancomycin HCl 500 mg/ Sodium (Chloride) 100 mls @ 67 mls/hr IVPB MWF [facility]; Protocol Stop: 05/21/18 18:01 Last Admin: 05/14/18 18:27 Dose: 67 mls/hr Metoprolol Tartrate (Lopressor) 12.5 mg PO BID [facility] Last Admin: 05/15/18 18:05 Dose: Not Given Oxycodone/Acetaminophen (Percocet 5/325 Mg Tab) 2 tab PO Q6H PRN PRN Reason: Pain, severe (8-10) Stop: 05/17/18 21:29 Last Admin: 05/15/18 09:55 Dose: 2 tab Pantoprazole Sodium (Protonix Ec Tab) 40 mg PO DAILY [facility] Last Admin: 05/15/18 09:30 Dose: 40 mg Senna/Docusate Sodium (Senokot S 50 Mg-8.6 Mg) 2 tab PO BID [facility] Last Admin: 05/15/18 18:05 Dose: Not Given Sevelamer Carbonate (Renvela) 2.4 gm PO TIDCC [facility] Last Admin: 05/15/18 18:04 Dose: 2.4 gm - Labs Labs: 05/12/18 07:41 05/12/18 07:41 APTT 38 SECONDS (21-34) H 05/03/18 23:27 - Constitutional Appears: No Acute Distress - Head Exam Head Exam: NORMAL INSPECTION - Eye Exam Eye Exam: EOMI, PERRL - ENT Exam ENT Exam: Normal Oropharynx - Neck Exam Neck Exam: Normal Inspection - Respiratory Exam Respiratory Exam: Decreased Breath Sounds, NORMAL BREATHING PATTERN - Cardiovascular Exam Cardiovascular Exam: REGULAR RHYTHM, +S1, +S2 - GI/Abdominal Exam GI & Abdominal Exam: Soft, Normal Bowel Sounds - Extremities Exam Extremities Exam: Pedal Edema (2+ EDEMA). absent: Calf Tenderness - Neurological Exam Neurological Exam: Awake, CN II-XII Intact, Normal Gait, Oriented x3, Reflexes Normal - Psychiatric Exam Psychiatric exam: Normal Mood - Skin Skin Exam: Pallor, Warm Assessment and Plan (1) Bacteremia Status: Acute (2) SBE (subacute bacterial endocarditis) Status: Acute (3) Xanthogranulomatous pyelonephritis Status: Acute (4) Hypertensive CKD, ESRD on dialysis Status: Acute - Assessment and Plan (Free Text) Plan: ON iv CEFAZOLIN 1 G EVERY 24HRLY HOURLY 05/06/18. X 6WEEKS PER DISCUSSION WITH PHARMACY ACCORDING TO RENAL FUNCTION. ON IV VANCOMYCIN 500MG IVPB POST EACH HD MWF X TOTAL OF 6WEEKS. F/U CBC,LFTS IN AM ON HD. VANCO TROUGH ON HD IN AM . PT AWAITING TRANSFER TO [facility] FOR AVR FOR LEAKY VALVE AND RT NEPHRECTOMY. PER CARDIOLOGY DR DILLARD.
--- NOTE | 2018-05-16 00:36 | CP.PCM.PN ---
Subjective - Subjective Subjective: dictated Objective - Vital Signs/Intake and Output Vital Signs (last 24 hours): Temp Pulse Resp BP Pulse Ox 97.5 F L 81 20 102/51 L 96 05/15/18 16:00 05/15/18 16:00 05/15/18 16:00 05/15/18 16:00 05/15/18 16:00 Intake and Output: 05/15/18 05/16/18 18:59 06:59 Intake Total 800 Balance 800 - Medications Medications: Current Medications Alprazolam (Xanax) 0.5 mg PO Q6 PRN PRN Reason: Anxiety Last Admin: 05/15/18 06:11 Dose: 0.5 mg Aspirin (Aspirin Chewable) 81 mg PO DAILY [facility] Last Admin: 05/15/18 09:30 Dose: 81 mg Calcium Acetate (Phoslo) 1,334 mg PO TIDCC [facility] Last Admin: 05/15/18 18:04 Dose: 1,334 mg Diphenhydramine HCl (Benadryl) 25 mg IVP Q12 PRN PRN Reason: Itching / Pruritus Last Admin: 05/15/18 00:07 Dose: 25 mg Ferrous Sulfate (Feosol) 325 mg PO BID [facility] Last Admin: 05/15/18 18:07 Dose: 325 mg Cefazolin Sodium (Ancef) 1 gm in 50 mls @ 100 mls/hr IVPB Q24H [facility] Last Admin: 05/15/18 06:11 Dose: 100 mls/hr Vancomycin HCl 500 mg/ Sodium (Chloride) 100 mls @ 67 mls/hr [facility]; Protocol Stop: 05/21/18 18:01 Last Admin: 05/14/18 18:27 Dose: 67 mls/hr Metoprolol Tartrate (Lopressor) 12.5 mg PO BID [facility] Last Admin: 05/15/18 18:05 Dose: Not Given Oxycodone/Acetaminophen (Percocet 5/325 Mg Tab) 2 tab PO Q6H PRN PRN Reason: Pain, severe (8-10) Stop: 05/17/18 21:29 Last Admin: 05/15/18 09:55 Dose: 2 tab Pantoprazole Sodium (Protonix Ec Tab) 40 mg PO DAILY [facility] Last Admin: 05/15/18 09:30 Dose: 40 mg Senna/Docusate Sodium (Senokot S 50 Mg-8.6 Mg) 2 tab PO BID [facility] Last Admin: 05/15/18 18:05 Dose: Not Given Sevelamer Carbonate (Renvela) 2.4 gm PO TIDCC [facility] Last Admin: 05/15/18 18:04 Dose: 2.4 gm - Labs Labs: 05/12/18 07:41 05/12/18 07:41 APTT 38 SECONDS (21-34) H 05/03/18 23:27
[2018-05-16] MEDS: DiphenhydrAMINE 50 mg/ml Inj IVP PRN ×2 (00:59→23:53)
[2018-05-16 02:45] LABS: BARBITURATES, UR NEGATIVE (NEGATIVE); BENZODIAZEPINES, UR NEGATIVE (NEGATIVE); PHENCYCLIDINE, UR NEGATIVE (NEGATIVE)
[2018-05-16 03:21] LABS: OPIATES, UR POSITIVE (NEGATIVE)
[2018-05-16] MEDS: ceFAZolin 1 gm FROZEN Premix 1 GM/50 ML ML IVPB SCH (06:55)
[2018-05-16] MEDS: Pantoprazole 40 mg EC Tab PO SCH (09:31)
[2018-05-16] MEDS: Sevelamer Carb 2.4 gm/Packet PO SCH ×3 (09:31→18:10)
[2018-05-16] MEDS: Docusate-Senna 50 mg-8.6 mg Tab PO SCH ×2 (09:32→18:11)
[2018-05-16] MEDS: Oxycodone/Acetaminophen 5/325 mg Tab PO PRN ×2 (10:14→18:22)
--- NOTE | 2018-05-16 10:47 | PN ---
DATE: 05/16/2018 SUBJECTIVE: The patient remains on antibiotics. He feels better. No nausea or vomiting. PHYSICAL EXAMINATION: VITAL SIGNS: Blood pressure 100/51, pulse 81, respiratory rate 20, temperature 97.5. CARDIOVASCULAR SYSTEM: S1, S2. +2/6 ejection systolic murmur at the aortic area from the shock. LUNGS: Clear. No rale. No rhonchi. ASSESSMENT: 1. Septicemia. 2. Hepatitis C. 3. Chronic kidney disease, on hemodialysis. 4. Nephrolithiasis. PLAN: Continue current medications, antibiotics, ID monitor the patient. Mikel Marc MD
[2018-05-16] MEDS ORDERED: Lidocaine 2% MPF (5 ml) Inj ONE (11:31)
--- NOTE | 2018-05-16 13:12 | CP.PCM.PN ---
Subjective - Date & Time of Evaluation Date of Evaluation: 05/16/18 Time of Evaluation: 13:07 - Subjective Subjective: c/o difficulty breathing and edema of legs per dialysis nurses, 4-6 kg of interdialytic weight gain each visit no fever no chest pain appetite is good no bruising no headache no arthralgias no diarrhea no sinus tenderness Objective - Vital Signs/Intake and Output Vital Signs (last 24 hours): Temp Pulse Resp BP Pulse Ox 98 F 78 20 111/53 L 97 05/16/18 07:45 05/16/18 07:45 05/16/18 07:45 05/16/18 07:45 05/16/18 07:45 - Medications Medications: Current Medications Alprazolam (Xanax) 0.5 mg PO Q6 PRN PRN Reason: Anxiety Last Admin: 05/16/18 00:59 Dose: 0.5 mg Aspirin (Aspirin Chewable) 81 mg PO DAILY [facility] Last Admin: 05/16/18 09:30 Dose: 81 mg Calcium Acetate (Phoslo) 1,334 mg PO TIDCC [facility] Last Admin: 05/16/18 09:31 Dose: 1,334 mg Diphenhydramine HCl (Benadryl) 25 mg IVP Q12 PRN PRN Reason: Itching / Pruritus Last Admin: 05/16/18 00:59 Dose: 25 mg Ferrous Sulfate (Feosol) 325 mg PO BID [facility] Last Admin: 05/16/18 09:31 Dose: 325 mg Cefazolin Sodium (Ancef) 1 gm in 50 mls @ 100 mls/hr IVPB Q24H [facility] Last Admin: 05/16/18 06:55 Dose: 100 mls/hr Vancomycin HCl 500 mg/ Sodium (Chloride) 100 mls @ 67 [facility]; Protocol Stop: 05/21/18 18:01 Last Admin: 05/14/18 18:27 Dose: 67 mls/hr Metoprolol Tartrate (Lopressor) 12.5 mg PO BID [facility] Last Admin: 05/16/18 09:31 Dose: Not Given Oxycodone/Acetaminophen (Percocet 5/325 Mg Tab) 2 tab PO Q6H PRN PRN Reason: Pain, severe (8-10) Stop: 05/17/18 21:29 Last Admin: 05/16/18 10:14 Dose: 2 tab Pantoprazole Sodium (Protonix Ec Tab) 40 mg PO DAILY [facility] Last Admin: 05/16/18 09:31 Dose: 40 mg Senna/Docusate Sodium (Senokot S 50 Mg-8.6 Mg) 2 tab PO BID [facility] Last Admin: 05/16/18 09:32 Dose: Not Given Sevelamer Carbonate (Renvela) 2.4 gm PO TIDCC [facility] Last Admin: 05/16/18 09:31 Dose: 2.4 gm - Labs Labs: 05/12/18 07:41 05/12/18 07:41 APTT 38 SECONDS (21-34) H 05/03/18 23:27 - Constitutional Appears: Non-toxic, Chronically Ill - Head Exam Head Exam: ATRAUMATIC, NORMAL INSPECTION - Eye Exam Eye Exam: EOMI, Normal appearance - ENT Exam ENT Exam: Mucous Membranes Moist - Neck Exam Neck Exam: Full ROM. absent: Lymphadenopathy - Respiratory Exam Respiratory Exam: Decreased Breath Sounds, Rhonchi. absent: Respiratory Distress - Cardiovascular Exam Cardiovascular Exam: RRR. absent: Rubs - GI/Abdominal Exam GI & Abdominal Exam: Distended, Soft. absent: Tenderness - Neurological Exam Neurological Exam: Alert, Awake, Oriented x3 Assessment and Plan - Assessment and Plan (Free Text) Assessment: fluid overload due to noncompliance with fluid intake strep bacteremia/endocarditis continue AB extra treatment in am reinforced fluid restriction
--- NOTE | 2018-05-16 15:20 | CP.PCM.PN ---
<Iban Barba - Last Filed: 05/16/18 15:20> Subjective - Date & Time of Evaluation Date of Evaluation: 05/16/18 Time of Evaluation: 10:40 - Subjective Subjective: Iban Barba DO, PGY-1 Cardiology Progress Note for Dr. Schultz Patient was seen and examined at bedside this AM. He offers no new complaints and states he feels fine. He is awaiting transfer to [place]. Objective - Vital Signs/Intake and Output Vital Signs (last 24 hours): Temp Pulse Resp BP Pulse Ox 97 F L 78 16 111/46 L 96 05/16/18 14:20 05/16/18 14:20 05/16/18 14:20 05/16/18 14:20 05/16/18 13:50 Intake and Output: 05/16/18 05/16/18 06:59 18:59 Intake Total 800 Balance 800 - Medications Medications: Current Medications Alprazolam (Xanax) 0.5 mg PO Q6 PRN PRN Reason: Anxiety Last Admin: 05/16/18 00:59 Dose: 0.5 mg Aspirin (Aspirin Chewable) 81 mg PO DAILY [facility] Last Admin: 05/16/18 09:30 Dose: 81 mg Calcium Acetate (Phoslo) 1,334 mg PO TIDCC [facility] Last Admin: 05/16/18 13:22 Dose: 1,334 mg Diphenhydramine HCl (Benadryl) 25 mg IVP Q12 PRN PRN Reason: Itching / Pruritus Last Admin: 05/16/18 00:59 Dose: 25 mg Ferrous Sulfate (Feosol) 325 mg PO BID [facility] Last Admin: 05/16/18 09:31 Dose: 325 mg Cefazolin Sodium (Ancef) 1 gm in 50 mls @ 100 mls/hr IVPB Q24H [facility] Last Admin: 05/16/18 06:55 Dose: 100 mls/hr Vancomycin HCl 500 mg/ Sodium (Chloride) 100 mls @ 67 mls/hr IVPB MWF [facility]; Protocol Stop: 05/21/18 18:01 Last Admin: 05/14/18 18:27 Dose: 67 mls/hr Metoprolol Tartrate (Lopressor) 12.5 mg PO BID [facility] Last Admin: 05/16/18 09:31 Dose: Not Given Oxycodone/Acetaminophen (Percocet 5/325 Mg Tab) 2 tab PO Q6H PRN PRN Reason: Pain, severe (8-10) Stop: 05/17/18 21:29 Last Admin: 05/16/18 10:14 Dose: 2 tab Pantoprazole Sodium (Protonix Ec Tab) 40 mg PO DAILY [facility] Last Admin: 05/16/18 09:31 Dose: 40 mg Senna/Docusate Sodium (Senokot S 50 Mg-8.6 Mg) 2 tab PO BID [facility] Last Admin: 05/16/18 09:32 Dose: Not Given Sevelamer Carbonate (Renvela) 2.4 gm PO TIDCC [facility] Last Admin: 05/16/18 13:22 Dose: 2.4 gm - Labs Labs: 05/12/18 07:41 05/12/18 07:41 APTT 38 SECONDS (21-34) H 05/03/18 23:27 - Constitutional Appears: Non-toxic, No Acute Distress - Head Exam Head Exam: ATRAUMATIC, NORMOCEPHALIC - Eye Exam Eye Exam: EOMI, Normal appearance, PERRL - ENT Exam ENT Exam: Mucous Membranes Moist - Neck Exam Neck Exam: Full ROM, Normal Inspection - Respiratory Exam Respiratory Exam: Clear to Ausculation Bilateral. absent: Rales, Rhonchi, Wheezes - Cardiovascular Exam Cardiovascular Exam: Diastolic murmur (grade 3/6 in right upper sternal border unchanged from prior exams), REGULAR RHYTHM, +S1, +S2. absent: Gallop, Rubs - GI/Abdominal Exam GI & Abdominal Exam: Soft, Normal Bowel Sounds. absent: Tenderness - Extremities Exam Extremities Exam: Full ROM. absent: Pedal Edema - Neurological Exam Neurological Exam: Alert, Awake, Oriented x3 - Psychiatric Exam Psychiatric exam: Normal Affect, Normal Mood - Skin Skin Exam: Dry, Intact, Warm Assessment and Plan - Assessment and Plan (Free Text) Assessment: 48 yo M with PMH of ESRD (M,W,F hemodialysis), severe aortic valve insufficiency, prior episode of endocarditis, HTN, anxiety, anemia, seizure disorder, hepatitis C, IVDA (last use 2014), PE (previously on Coumadin) presented to [facility] ED with L-sided CP. He was subsequently found to have severe aortic regurgitation on echo and mobile mass on aortic valve left cusp c/w vegetation. Blood cx are now negative to date x 7 days. Transfer to [place] pending. Plan: 1. Severe aortic regurgitation Plan on transfer to [place] for nephrectomy and aortic valve replacement after resolution of endocarditis/vegetation Blood cx negative x 7 days Will discuss plan with urology and CT surgery at [place] regarding surgery date If bed unavailable, may consider transferring for surgery and then transferring back to [facility] for recovery 2. Aortic valve vegetation/endocarditis Blood cx this admission negative to date Continue vanc/ancef at [place] Will inform surgeon that blood cx are negative to date 3. HFpEF with severe pulmonary HTN Continue lopressor 25 mg BID Aortic valve replacement at [place] pending 4. Persistent troponin elevation Likely 2/2 demand ischemia and valve tissue necrosis from severe aortic regurgitation in the setting of ESRD Will likely resolve after aortic valve replacement Will continue to monitor Case and plan reviewed and discussed with my attending Dr. Antoine Barba, DO IM Resident PGY-1 <Naresh Schultz - Last Filed: 05/22/18 15:58> Objective - Vital Signs/Intake and Output Vital Signs (last 24 hours): Temp Pulse Resp BP Pulse Ox 97.9 F 98 H 20 95/43 L 97 05/22/18 15:55 05/22/18 15:55 05/22/18 15:55 05/22/18 15:55 05/22/18 15:55 - Medications Medications: Current Medications Alprazolam (Xanax) 0.5 mg PO Q6 PRN PRN Reason: Anxiety Last Admin: 05/20/18 23:57 Dose: 0.5 mg Aspirin (Aspirin Chewable) 81 mg PO DAILY [facility] Last Admin: 05/22/18 09:09 Dose: 81 mg Calcium Acetate (Phoslo) 1,334 mg PO TIDCC [facility] Last Admin: 05/22/18 13:09 Dose: Not Given Diphenhydramine HCl (Benadryl) 25 mg IVP Q12 PRN PRN Reason: Itching / Pruritus Last Admin: 05/20/18 23:57 Dose: 25 mg Epoetin Zain (Procrit) 10,000 unit IV MWF [facility] Last Admin: 05/21/18 10:29 Dose: 10,000 unit Ferrous Sulfate (Feosol) 325 mg PO BID [facility] Last Admin: 05/22/18 09:09 Dose: 325 mg Cefazolin Sodium (Ancef) 1 gm in 50 mls @ 100 mls/hr IVPB Q24H [facility] Last Admin: 05/22/18 05:45 Dose: 100 mls/hr Metoprolol Tartrate (Lopressor) 12.5 mg PO BID [facility] Last Admin: 05/22/18 09:09 Dose: 12.5 mg Oxycodone/Acetaminophen (Percocet 5/325 Mg Tab) 2 tab PO Q6H PRN PRN Reason: Pain, moderate (4-7) Stop: 05/25/18 09:54 Last Admin: 05/22/18 10:26 Dose: 2 tab Pantoprazole Sodium (Protonix Ec Tab) 40 mg PO DAILY [facility] Last Admin: 05/22/18 09:11 Dose: 40 mg Senna/Docusate Sodium (Senokot S 50 Mg-8.6 Mg) 2 tab PO BID [facility] Last Admin: 05/22/18 09:10 Dose: 2 tab Sevelamer Carbonate (Renvela) 2.4 gm PO TIDCC [facility] Last Admin: 05/22/18 13:08 Dose: Not Given - Labs Labs: 05/21/18 13:39 05/21/18 17:33 APTT 38 SECONDS (21-34) H 05/03/18 23:27 Attending/Attestation - Attestation I have personally seen and examined this patient.: Yes I have fully participated in the care of the patient.: Yes I have reviewed all pertinent clinical information, including history, physical exam and plan: Yes
--- NOTE | 2018-05-16 21:48 | CP.PCM.PN ---
Subjective - Subjective Subjective: dictated Objective - Vital Signs/Intake and Output Vital Signs (last 24 hours): Temp Pulse Resp BP Pulse Ox 98.2 F 81 20 110/48 L 99 05/16/18 18:01 05/16/18 18:01 05/16/18 18:01 18 18:11 05/16/18 18:01 Intake and Output: 05/16/18 05/17/18 18:59 06:59 Intake Total 800 Balance 800 - Medications Medications: Current Medications Alprazolam (Xanax) 0.5 mg PO Q6 PRN PRN Reason: Anxiety Last Admin: 05/16/18 00:59 Dose: 0.5 mg Aspirin (Aspirin Chewable) 81 mg PO DAILY [facility] Last Admin: 05/16/18 09:30 Dose: 81 mg Calcium Acetate (Phoslo) 1,334 mg PO TIDCC [facility] Last Admin: 05/16/18 18:10 Dose: 1,334 mg Diphenhydramine HCl (Benadryl) 25 mg IVP Q12 PRN PRN Reason: Itching / Pruritus Last Admin: 05/16/18 00:59 Dose: 25 mg Ferrous Sulfate (Feosol) 325 mg PO BID [facility] Last Admin: 05/16/18 18:10 Dose: 325 mg Cefazolin Sodium (Ancef) 1 gm in 50 mls @ 100 mls/hr IVPB Q24H [facility] Last Admin: 05/16/18 06:55 Dose: 100 mls/hr Vancomycin HCl 500 mg/ Sodium (Chloride) 100 mls @ 67 mls[facility]hr [facility]; Protocol Stop: 05/21/18 18:01 Last Admin: 05/16/18 18:12 Dose: 67 mls/hr Metoprolol Tartrate (Lopressor) 12.5 mg PO BID [facility] Last Admin: 05/16/18 18:11 Dose: Not Given Oxycodone/Acetaminophen (Percocet 5/325 Mg Tab) 2 tab PO Q6H PRN PRN Reason: Pain, severe (8-10) Stop: 05/17/18 21:29 Last Admin: 05/16/18 18:22 Dose: 2 tab Pantoprazole Sodium (Protonix Ec Tab) 40 mg PO DAILY [facility] Last Admin: 05/16/18 09:31 Dose: 40 mg Senna/Docusate Sodium (Senokot S 50 Mg-8.6 Mg) 2 tab PO BID [facility] Last Admin: 05/16/18 18:11 Dose: Not Given Sevelamer Carbonate (Renvela) 2.4 gm PO TIDCC [facility] Last Admin: 05/16/18 18:10 Dose: 2.4 gm - Labs Labs: 05/12/18 07:41 05/12/18 07:41 APTT 38 SECONDS (21-34) H 05/03/18 23:27
--- NOTE | 2018-05-17 01:26 | PN ---
DATE: 05/16/2018 SUBJECTIVE: The patient, Wei Frank, is afebrile. His appetite is better. He looks more alert. No fever. No chills. No nausea or vomiting. PHYSICAL EXAMINATION: VITAL SIGNS: Blood pressure 110/48, pulse 81, respiratory rate 20, temperature 98.2. LUNGS: Bilaterally clear. No rale. No rhonchi. CARDIOVASCULAR SYSTEM: S1, S2 regular. A 2/6 ejection systolic murmur at the aortic area. ABDOMEN: Soft, nontender. Bowel sounds are positive postop. ASSESSMENT: 1. End-Stage renal disease, on hemodialysis. The patient's end-stage renal disease is due to bilateral nephrolithiasis with obstructive uropathy. 2. Acute pyelonephritis. 3. Septicemia, on antibiotics. 4. Hypertension. PLAN: Continue IV antibiotics per ID. Monitor the patient. The patient needs eventually nephrectomy or obstructive uropathy. Mikel Marc MD
[2018-05-17] MEDS: Oxycodone/Acetaminophen 5/325 mg Tab PO PRN (04:41)
[2018-05-17] MEDS: ceFAZolin 1 gm FROZEN Premix 1 GM/50 ML ML IVPB SCH (06:42)
[2018-05-17] MEDS: Pantoprazole 40 mg EC Tab PO SCH (09:14)
[2018-05-17] MEDS: Sevelamer Carb 2.4 gm/Packet PO SCH ×3 (09:15→17:33)
[2018-05-17] MEDS: Docusate-Senna 50 mg-8.6 mg Tab PO SCH ×2 (09:15→17:24)
--- NOTE | 2018-05-17 09:46 | CP.PCM.PN ---
Subjective - Date & Time of Evaluation Date of Evaluation: 05/17/18 Time of Evaluation: 09:44 - Subjective Subjective: Still with severe LE edema For extra dialysis now for fluid removal Has been afebrile remains on IV ABs Objective - Vital Signs/Intake and Output Vital Signs (last 24 hours): Temp Pulse Resp BP Pulse Ox 99 F 82 20 125/46 L 97 05/17/18 08:00 05/17/18 08:00 05/17/18 08:00 05/17/18 08:00 05/17/18 08:00 - Medications Medications: Current Medications Alprazolam (Xanax) 0.5 mg PO Q6 PRN PRN Reason: Anxiety Last Admin: 05/16/18 23:51 Dose: 0.5 mg Aspirin (Aspirin Chewable) 81 mg PO DAILY [facility] Last Admin: 05/17/18 09:14 Dose: 81 mg Calcium Acetate (Phoslo) 1,334 mg PO TIDCC [facility] Last Admin: 05/17/18 09:14 Dose: 1,334 mg Diphenhydramine HCl (Benadryl) 25 mg IVP Q12 PRN PRN Reason: Itching / Pruritus Last Admin: 05/16/18 23:53 Dose: 25 mg Ferrous Sulfate (Feosol) 325 mg PO BID [facility] Last Admin: 05/17/18 09:15 Dose: 325 mg Cefazolin Sodium (Ancef) 1 gm in 50 mls @ 100 mls/hr IVPB Q24H [facility] Last Admin: 05/17/18 06:42 Dose: 100 mls/hr Vancomycin HCl 500 mg/ Sodium (Chloride) 100 mls @ 67 mls/hr [facility]; Protocol Stop: 05/21/18 18:01 Last Admin: 05/16/18 18:12 Dose: 67 mls/hr Metoprolol Tartrate (Lopressor) 12.5 mg PO BID [facility] Last Admin: 05/17/18 09:15 Dose: Not Given Oxycodone/Acetaminophen (Percocet 5/325 Mg Tab) 2 tab PO Q6H PRN PRN Reason: Pain, severe (8-10) Stop: 05/17/18 21:29 Last Admin: 05/17/18 04:41 Dose: 2 tab Pantoprazole Sodium (Protonix Ec Tab) 40 mg PO DAILY [facility] Last Admin: 05/17/18 09:14 Dose: 40 mg Senna/Docusate Sodium (Senokot S 50 Mg-8.6 Mg) 2 tab PO BID [facility] Last Admin: 05/17/18 09:15 Dose: Not Given Sevelamer Carbonate (Renvela) 2.4 gm PO TIDCC [facility] Last Admin: 05/17/18 09:15 Dose: 2.4 gm - Labs Labs: 05/12/18 07:41 05/12/18 07:41 APTT 38 SECONDS (21-34) H 05/03/18 23:27 - Constitutional Appears: No Acute Distress, Chronically Ill - Head Exam Head Exam: ATRAUMATIC, NORMAL INSPECTION - Eye Exam Eye Exam: EOMI, Normal appearance - Neck Exam Neck Exam: Normal Inspection. absent: Tenderness - Respiratory Exam Respiratory Exam: Rhonchi, NORMAL BREATHING PATTERN - Cardiovascular Exam Cardiovascular Exam: REGULAR RHYTHM, +S1 - GI/Abdominal Exam GI & Abdominal Exam: Soft. absent: Tenderness - Extremities Exam Extremities Exam: Pedal Edema. absent: Tenderness - Neurological Exam Neurological Exam: Awake, CN II-XII Intact - Skin Skin Exam: Dry, Warm Assessment and Plan (1) Fluid overload Status: Acute (2) ESRD (end stage renal disease) Status: Acute (3) Hypertensive CKD, ESRD on dialysis Status: Acute (4) Hypertensive chronic kidney disease with stage 5 chronic kidney disease or end stage renal disease Status: Acute (5) Xanthogranulomatous pyelonephritis Status: Acute (6) Bacteremia Status: Acute (7) SBE (subacute bacterial endocarditis) Status: Acute (8) Xanthogranulomatous pyelonephritis Status: Acute - Assessment and Plan (Free Text) Plan: Dialysis today Then MWF schedule IV ABs Await planned surgery
--- NOTE | 2018-05-17 10:27 | CP.PCM.PN ---
<Iban Barba - Last Filed: 05/17/18 16:19> Subjective - Date & Time of Evaluation Date of Evaluation: 05/17/18 Time of Evaluation: 10:00 - Subjective Subjective: Iban Barba DO, PGY-1 Cardiology Progress Note for Dr. Schultz Patient was seen and examined at bedside this AM. He has noticed worsening LE edema and heaviness. He is otherwise without new complaints and states he feels fine. Objective - Vital Signs/Intake and Output Vital Signs (last 24 hours): Temp Pulse Resp BP Pulse Ox 99 F 82 20 125/46 L 97 05/17/18 08:00 05/17/18 08:00 05/17/18 08:00 05/17/18 08:00 05/17/18 08:00 - Medications Medications: Current Medications Alprazolam (Xanax) 0.5 mg PO Q6 PRN PRN Reason: Anxiety Last Admin: 05/16/18 23:51 Dose: 0.5 mg Aspirin (Aspirin Chewable) 81 mg PO DAILY [facility] Last Admin: 05/17/18 09:14 Dose: 81 mg Calcium Acetate (Phoslo) 1,334 mg PO TIDCC [facility] Last Admin: 05/17/18 09:14 Dose: 1,334 mg Diphenhydramine HCl (Benadryl) 25 mg IVP Q12 PRN PRN Reason: Itching / Pruritus Last Admin: 05/16/18 23:53 Dose: 25 mg Ferrous Sulfate (Feosol) 325 mg PO BID [facility] Last Admin: 05/17/18 09:15 Dose: 325 mg Cefazolin Sodium (Ancef) 1 gm in 50 mls @ 100 mls/hr IVPB Q24H [facility] Last Admin: 05/17/18 06:42 Dose: 100 mls/hr Vancomycin HCl 500 mg/ Sodium (Chloride) 100 mls @ 67 mls/hr IVPB [facility]; Protocol Stop: 05/21/18 18:01 Last Admin: 05/16/18 18:12 Dose: 67 mls/hr Metoprolol Tartrate (Lopressor) 12.5 mg PO BID [facility] Last Admin: 05/17/18 09:15 Dose: Not Given Oxycodone/Acetaminophen (Percocet 5/325 Mg Tab) 2 tab PO Q6H PRN PRN Reason: Pain, severe (8-10) Stop: 05/17/18 21:29 Last Admin: 05/17/18 04:41 Dose: 2 tab Pantoprazole Sodium (Protonix Ec Tab) 40 mg PO DAILY [facility] Last Admin: 05/17/18 09:14 Dose: 40 mg Senna/Docusate Sodium (Senokot S 50 Mg-8.6 Mg) 2 tab PO BID [facility] Last Admin: 05/17/18 09:15 Dose: Not Given Sevelamer Carbonate (Renvela) 2.4 gm PO TIDCC [facility] Last Admin: 05/17/18 09:15 Dose: 2.4 gm - Labs Labs: 05/12/18 07:41 05/12/18 07:41 APTT 38 SECONDS (21-34) H 05/03/18 23:27 - Constitutional Appears: Non-toxic, No Acute Distress - Head Exam Head Exam: ATRAUMATIC, NORMOCEPHALIC - Eye Exam Eye Exam: EOMI, Normal appearance, PERRL - ENT Exam ENT Exam: Mucous Membranes Moist - Neck Exam Neck Exam: Full ROM, Normal Inspection - Respiratory Exam Respiratory Exam: Clear to Ausculation Bilateral, NORMAL BREATHING PATTERN. absent: Rales, Rhonchi, Wheezes - Cardiovascular Exam Cardiovascular Exam: REGULAR RHYTHM, RRR, +S1, +S2. absent: Diastolic murmur, Gallop, Rubs, Murmur - GI/Abdominal Exam GI & Abdominal Exam: Soft. absent: Guarding, Tenderness - Extremities Exam Extremities Exam: Full ROM, Pedal Edema. absent: Tenderness - Back Exam Back Exam: Full ROM, NORMAL INSPECTION - Neurological Exam Neurological Exam: Alert, Awake, Oriented x3 - Psychiatric Exam Psychiatric exam: Normal Affect, Normal Mood - Skin Skin Exam: Dry, Intact, Warm Assessment and Plan - Assessment and Plan (Free Text) Assessment: 48 yo M with PMH of ESRD (M,W,F hemodialysis), severe aortic valve insufficiency, prior episode of endocarditis, HTN, anxiety, anemia, seizure disorder, hepatitis C, IVDA (last use 2014), PE (previously on Coumadin) presented to [facility] ED with L-sided CP. He was subsequently found to have severe aortic regurgitation on echo and mobile mass on aortic valve left cusp c/w vegetation. Blood cx are now negative to date since admission. Transfer to [place] for aortic valve replacement and nephrectomy pending. Plan: 1. Severe aortic regurgitation Worsened LE edema likely 2/2 both severe aortic insufficiency, HFpEF with severe pulmonary HTN, and CKD stage 5 Per nephrology, extra session of HD today to get excess fluid off, will continue on MWF afterwards Plan on transfer to [place] for nephrectomy and aortic valve replacement after resolution of endocarditis/vegetation Blood cx negative since admission Continue IV abx until surgery Will discuss plan with urology and CT surgery at [place] regarding surgery date If bed unavailable, may consider transferring for surgery and then transferring back to [facility] for recovery 2. Aortic valve vegetation/endocarditis Blood cx this admission negative to date Continue vanc/ancef at [place] Will inform surgeon that blood cx are negative to date 3. HFpEF with severe pulmonary HTN Continue lopressor 25 mg BID Aortic valve replacement at [place] pending 4. Persistent troponin elevation Likely 2/2 demand ischemia and valve tissue necrosis from severe aortic regurgitation in the setting of ESRD Will likely resolve after aortic valve replacement Will continue to monitor Case and plan reviewed and discussed with my attending Dr. Antoine Barba, DO IM Resident PGY-1 <Naresh Schultz - Last Filed: 05/22/18 15:59> Objective - Vital Signs/Intake and Output Vital Signs (last 24 hours): Temp Pulse Resp BP Pulse Ox 97.9 F 98 H 20 95/43 L 97 05/22/18 15:55 05/22/18 15:55 05/22/18 15:55 05/22/18 15:55 05/22/18 15:55 - Medications Medications: Current Medications Alprazolam (Xanax) 0.5 mg PO Q6 PRN PRN Reason: Anxiety Last Admin: 05/20/18 23:57 Dose: 0.5 mg Aspirin (Aspirin Chewable) 81 mg PO DAILY [facility] Last Admin: 05/22/18 09:09 Dose: 81 mg Calcium Acetate (Phoslo) 1,334 mg PO TIDCC [facility] Last Admin: 05/22/18 13:09 Dose: Not Given Diphenhydramine HCl (Benadryl) 25 mg IVP Q12 PRN PRN Reason: Itching / Pruritus Last Admin: 05/20/18 23:57 Dose: 25 mg Epoetin Zain (Procrit) 10,000 unit IV MWF [facility] Last Admin: 05/21/18 10:29 Dose: 10,000 unit Ferrous Sulfate (Feosol) 325 mg PO BID [facility] Last Admin: 05/22/18 09:09 Dose: 325 mg Cefazolin Sodium (Ancef) 1 gm in 50 mls @ 100 mls/hr IVPB Q24H [facility] Last Admin: 05/22/18 05:45 Dose: 100 mls/hr Metoprolol Tartrate (Lopressor) 12.5 mg PO BID [facility] Last Admin: 05/22/18 09:09 Dose: 12.5 mg Oxycodone/Acetaminophen (Percocet 5/325 Mg Tab) 2 tab PO Q6H PRN PRN Reason: Pain, moderate (4-7) Stop: 05/25/18 09:54 Last Admin: 05/22/18 10:26 Dose: 2 tab Pantoprazole Sodium (Protonix Ec Tab) 40 mg PO DAILY [facility] Last Admin: 05/22/18 09:11 Dose: 40 mg Senna/Docusate Sodium (Senokot S 50 Mg-8.6 Mg) 2 tab PO BID [facility] Last Admin: 05/22/18 09:10 Dose: 2 tab Sevelamer Carbonate (Renvela) 2.4 gm PO TIDCC [facility] Last Admin: 05/22/18 13:08 Dose: Not Given - Labs Labs: 05/21/18 13:39 05/21/18 17:33 APTT 38 SECONDS (21-34) H 05/03/18 23:27 Attending/Attestation - Attestation I have personally seen and examined this patient.: Yes I have fully participated in the care of the patient.: Yes I have reviewed all pertinent clinical information, including history, physical exam and plan: Yes
--- NOTE | 2018-05-17 23:43 | CP.PCM.PN ---
Subjective - Subjective Subjective: DICTATED Objective - Vital Signs/Intake and Output Vital Signs (last 24 hours): Temp Pulse Resp BP Pulse Ox 98.0 F 90 18 132/74 99 05/17/18 17:17 05/17/18 17:17 05/17/18 17:17 18 17:24 05/17/18 17:17 Intake and Output: 05/17/18 05/18/18 18:59 06:59 Intake Total 700 Balance 700 - Medications Medications: Current Medications Alprazolam (Xanax) 0.5 mg PO Q6 PRN PRN Reason: Anxiety Last Admin: 05/16/18 23:51 Dose: 0.5 mg Aspirin (Aspirin Chewable) 81 mg PO DAILY [facility] Last Admin: 05/17/18 09:14 Dose: 81 mg Calcium Acetate (Phoslo) 1,334 mg PO TIDCC [facility] Last Admin: 05/17/18 17:25 Dose: 1,334 mg Diphenhydramine HCl (Benadryl) 25 mg IVP Q12 PRN PRN Reason: Itching / Pruritus Last Admin: 05/16/18 23:53 Dose: 25 mg Ferrous Sulfate (Feosol) 325 mg PO BID [facility] Last Admin: 05/17/18 17:25 Dose: 325 mg Cefazolin Sodium (Ancef) 1 gm in 50 mls @ 100 mls/hr IVPB Q24H [facility] Last Admin: 05/17/18 06:42 Dose: 100 mls/hr Vancomycin HCl 500 mg/ Sodium (Chloride) 100 mls @ 67 mls/hr IVPB MWF [facility]; Protocol Stop: 05/21/18 18:01 Last Admin: 05/16/18 18:12 Dose: 67 mls/hr Metoprolol Tartrate (Lopressor) 12.5 mg PO BID [facility] Last Admin: 05/17/18 17:24 Dose: 12.5 mg Pantoprazole Sodium (Protonix Ec Tab) 40 mg PO DAILY [facility] Last Admin: 05/17/18 09:14 Dose: 40 mg Senna/Docusate Sodium (Senokot S 50 Mg-8.6 Mg) 2 tab PO BID [facility] Last Admin: 05/17/18 17:24 Dose: 2 tab Sevelamer Carbonate (Renvela) 2.4 gm PO TIDCC [facility] Last Admin: 05/17/18 17:33 Dose: 2.4 gm - Labs Labs: 05/12/18 07:41 05/12/18 07:41 APTT 38 SECONDS (21-34) H 05/03/18 23:27
[2018-05-18] MEDS: DiphenhydrAMINE 50 mg/ml Inj IVP PRN ×2 (01:04→23:46)
[2018-05-18] MEDS: ceFAZolin 1 gm FROZEN Premix 1 GM/50 ML ML IVPB SCH (06:08)
[2018-05-18] MEDS: Sevelamer Carb 2.4 gm/Packet PO SCH ×3 (08:55→18:24)
[2018-05-18 10:02] LABS: BASO # 0.1 K/uL (0.0-0.2); BASO % 0.9 % (0.0-2.0); EOS # 0.1 K/uL (0.0-0.7); EOS % 1.7 % (0.0-4.0); HEMOGLOBIN 10.2 g/dL (12.0-18.0); LYMPH # 1.8 K/uL (1.0-4.3); LYMPH % 30.7 % (20.0-40.0); MEAN CELL VOLUME 97.4 fL (80.0-94.0); MEAN CORPUSCULAR HEMOGLOBIN 31.8 pg (27.0-31.0); MEAN CORPUSCULAR HGB CONC 32.6 g/dL (33.0-37.0); MEAN PLATELET VOLUME 9.6 fL (7.2-11.7); MONO # 0.5 K/uL (0.0-0.8); MONO % 7.9 % (0.0-10.0); NEUT # 3.5 K/uL (1.8-7.0); NEUT % 58.8 % (50.0-75.0); NRBC % 0.1 % (0.0-2.0); RBC 3.2 Mil/uL (4.40-5.90); RED CELL DISTRIBUTION WIDTH 17.8 % (11.5-14.5); WHITE BLOOD COUNT 5.9 K/uL (4.8-10.8)
[2018-05-18 10:13] LABS: ALB/GLOB RATIO 1.2 (1.0-2.1); ALBUMIN 3.9 g/dL (3.5-5.0); BILIRUBIN,DIRECT 0.5 mg/dL (0.0-0.4)
[2018-05-18] MEDS: Pantoprazole 40 mg EC Tab PO SCH (10:37)
[2018-05-18] MEDS: Docusate-Senna 50 mg-8.6 mg Tab PO SCH ×2 (10:37→18:29)
--- NOTE | 2018-05-18 12:25 | CP.PCM.PN ---
Subjective - Date & Time of Evaluation Date of Evaluation: 05/18/18 Time of Evaluation: 12:22 - Subjective Subjective: Refused extra dialysis 05/17 Seen on machine this AM Attempting UF 5000ml LEs still very edematous Remains on IV ABs No other complaint Objective - Vital Signs/Intake and Output Vital Signs (last 24 hours): Temp Pulse Resp BP Pulse Ox 97.3 F L 83 18 94/36 L 99 05/18/18 09:05 05/18/18 09:05 05/18/18 09:05 05/18/18 11:35 05/18/18 09:05 Intake and Output: 05/18/18 05/18/18 06:59 18:59 Intake Total 290 Balance 290 - Medications Medications: Current Medications Alprazolam (Xanax) 0.5 mg PO Q6 PRN PRN Reason: Anxiety Last Admin: 05/18/18 01:04 Dose: 0.5 mg Aspirin (Aspirin Chewable) 81 mg PO DAILY [facility] Last Admin: 05/18/18 10:37 Dose: Not Given Calcium Acetate (Phoslo) 1,334 mg PO TIDCC [facility] Last Admin: 05/18/18 12:09 Dose: Not Given Diphenhydramine HCl (Benadryl) 25 mg IVP Q12 PRN PRN Reason: Itching / Pruritus Last Admin: 05/18/18 01:04 Dose: 25 mg Ferrous Sulfate (Feosol) 325 mg PO BID [facility] Last Admin: 05/18/18 10:37 Dose: Not Given Cefazolin Sodium (Ancef) 1 gm in 50 mls @ 100 mls/hr IVPB Q24H [facility] Last Admin: 05/18/18 06:08 Dose: 100 mls/hr Vancomycin HCl 500 mg/ Sodium (Chloride) 100 mls @ 67 mls/hr IVPB MWF [facility]; Protocol Stop: 05/21/18 18:01 Last Admin: 05/16/18 18:12 Dose: 67 mls/hr Metoprolol Tartrate (Lopressor) 12.5 mg PO BID [facility] Last Admin: 05/18/18 10:37 Dose: Not Given Pantoprazole Sodium (Protonix Ec Tab) 40 mg PO DAILY [facility] Last Admin: 05/18/18 10:37 Dose: Not Given Senna/Docusate Sodium (Senokot S 50 Mg-8.6 Mg) 2 tab PO BID [facility] Last Admin: 05/18/18 10:37 Dose: Not Given Sevelamer Carbonate (Renvela) 2.4 gm PO TIDCC [facility] Last Admin: 05/18/18 12:09 Dose: Not Given - Labs Labs: 05/18/18 09:54 05/12/18 07:41 APTT 38 SECONDS (21-34) H 05/03/18 23:27 - Constitutional Appears: No Acute Distress, Chronically Ill - Head Exam Head Exam: ATRAUMATIC, NORMAL INSPECTION - Eye Exam Eye Exam: EOMI, Normal appearance - Neck Exam Neck Exam: Normal Inspection. absent: Tenderness - Respiratory Exam Respiratory Exam: Clear to Ausculation Bilateral, NORMAL BREATHING PATTERN - Cardiovascular Exam Cardiovascular Exam: REGULAR RHYTHM, +S1 - GI/Abdominal Exam GI & Abdominal Exam: Soft. absent: Tenderness - Extremities Exam Extremities Exam: Pedal Edema. absent: Tenderness - Neurological Exam Neurological Exam: Awake, CN II-XII Intact - Skin Skin Exam: Dry, Warm Assessment and Plan (1) Fluid overload Status: Acute (2) ESRD (end stage renal disease) Status: Acute (3) Hypertensive CKD, ESRD on dialysis Status: Acute (4) Hypertensive chronic kidney disease with stage 5 chronic kidney disease or end stage renal disease Status: Acute (5) Xanthogranulomatous pyelonephritis Status: Acute (6) Bacteremia Status: Acute (7) SBE (subacute bacterial endocarditis) Status: Acute (8) Xanthogranulomatous pyelonephritis Status: Acute - Assessment and Plan (Free Text) Plan: Aggressive UF with dialysis Patient refusing extra HD sessions IV ABs Await transfer for nephrectomy
[2018-05-18] MEDS: Epoetin Alfa 10,000 unit/ml Dialysis IV SCH (12:53)
[2018-05-18] MEDS: Oxycodone/Acetaminophen 5/325 mg Tab PO PRN (14:34)
--- NOTE | 2018-05-18 22:36 | CP.PCM.PN ---
Subjective - Subjective Subjective: dictated Objective - Vital Signs/Intake and Output Vital Signs (last 24 hours): Temp Pulse Resp BP Pulse Ox 98.1 F 79 20 110/51 L 95 05/18/18 16:30 05/18/18 16:30 05/18/18 16:30 18 18:28 05/18/18 16:30 Intake and Output: 05/18/18 05/19/18 18:59 06:59 Intake Total 800 Balance 800 - Medications Medications: Current Medications Alprazolam (Xanax) 0.5 mg PO Q6 PRN PRN Reason: Anxiety Last Admin: 05/18/18 01:04 Dose: 0.5 mg Aspirin (Aspirin Chewable) 81 mg PO DAILY [facility] Last Admin: 05/18/18 10:37 Dose: Not Given Calcium Acetate (Phoslo) 1,334 mg PO TIDCC [facility] Last Admin: 05/18/18 18:24 Dose: 1,334 mg Diphenhydramine HCl (Benadryl) 25 mg IVP Q12 PRN PRN Reason: Itching / Pruritus Last Admin: 05/18/18 01:04 Dose: 25 mg Epoetin Zain (Procrit) 10,000 unit IV MWF [facility] Last Admin: 05/18/18 12:53 Dose: 10,000 unit Ferrous Sulfate (Feosol) 325 mg PO BID [facility] Last Admin: 05/18/18 18:26 Dose: 325 mg Cefazolin Sodium (Ancef) 1 gm in 50 mls @ 100 mls/hr IVPB Q24H [facility] Last Admin: 05/18/18 06:08 Dose: 100 mls/hr Vancomycin HCl 500 mg/ Sodium (Chloride) 100 mls @ 67 mls/hr IVPB [facility] [place]; Protocol Stop: 05/21/18 18:01 Last Admin: 05/18/18 14:34 Dose: 67 mls/hr Metoprolol Tartrate (Lopressor) 12.5 mg PO BID [facility] Last Admin: 05/18/18 18:28 Dose: Not Given Oxycodone/Acetaminophen (Percocet 5/325 Mg Tab) 2 tab PO Q6H PRN PRN Reason: Pain, moderate (4-7) Stop: 05/21/18 14:23 Last Admin: 05/18/18 14:34 Dose: 2 tab Pantoprazole Sodium (Protonix Ec Tab) 40 mg PO DAILY [facility] Last Admin: 05/18/18 10:37 Dose: Not Given Senna/Docusate Sodium (Senokot S 50 Mg-8.6 Mg) 2 tab PO BID [facility] Last Admin: 05/18/18 18:29 Dose: Not Given Sevelamer Carbonate (Renvela) 2.4 gm PO TIDCC [facility] Last Admin: 05/18/18 18:24 Dose: 2.4 gm - Labs Labs: 05/18/18 09:54 05/12/18 07:41 APTT 38 SECONDS (21-34) H 05/03/18 23:27
--- NOTE | 2018-05-19 03:20 | PN ---
DATE: 05/18/2018 SUBJECTIVE: Zac is afebrile. No shortness of breath. No nausea or vomiting. PHYSICAL EXAMINATION: VITAL SIGNS: Blood pressure 124/59, pulse 79, respiratory rate 20, and temperature 98.1. LUNGS: Clear. No rale. No rhonchi. CARDIOVASCULAR SYSTEM: S1 and S2, regular. ABDOMEN: Soft. Nontender. Bowel sounds are positive. ASSESSMENT: 1. Bilateral hydronephrosis. 2. Septicemia. 3. Chronic kidney disease, on hemodialysis. PLAN: Continue antibiotics. Follow up with Infectious Disease. Monitor the patient. Mikel Marc MD
[2018-05-19] MEDS: ceFAZolin 1 gm FROZEN Premix 1 GM/50 ML ML IVPB SCH (07:03)
[2018-05-19] MEDS: Oxycodone/Acetaminophen 5/325 mg Tab PO PRN ×2 (08:05→18:13)
[2018-05-19] MEDS: Sevelamer Carb 2.4 gm/Packet PO SCH ×3 (08:35→18:09)
--- NOTE | 2018-05-19 09:58 | CP.PCM.PN ---
Subjective - Date & Time of Evaluation Date of Evaluation: 05/19/18 Time of Evaluation: 09:56 - Subjective Subjective: Notes reviewed Comfortable, ambulating around floor Tolerated dialysis well 05/18 Mild abdominal pain as previous Appetite good No fever or chills NO sob or cough, no cp or palp 10 point ros negative other than stated above Objective - Vital Signs/Intake and Output Vital Signs (last 24 hours): Temp Pulse Resp BP Pulse Ox 98.1 F 77 20 104/58 L 97 05/19/18 07:34 05/19/18 07:34 05/19/18 07:34 05/19/18 07:34 05/19/18 07:34 - Medications Medications: Current Medications Alprazolam (Xanax) 0.5 mg PO Q6 PRN PRN Reason: Anxiety Last Admin: 05/18/18 23:43 Dose: 0.5 mg Aspirin (Aspirin Chewable) 81 mg PO DAILY [facility] Last Admin: 05/18/18 10:37 Dose: Not Given Calcium Acetate (Phoslo) 1,334 mg PO TIDCC [facility] Last Admin: 05/18/18 18:24 Dose: 1,334 mg Diphenhydramine HCl (Benadryl) 25 mg IVP Q12 PRN PRN Reason: Itching / Pruritus Last Admin: 05/18/18 23:46 Dose: 25 mg Epoetin Zain (Procrit) 10,000 unit IV [facility] [place] Last Admin: 05/18/18 12:53 Dose: 10,000 unit Ferrous Sulfate (Feosol) 325 mg PO BID [facility] Last Admin: 05/18/18 18:26 Dose: 325 mg Cefazolin Sodium (Ancef) 1 gm in 50 mls @ 100 mls/hr IVPB Q24H [facility] Last Admin: 05/19/18 07:03 Dose: 100 mls/hr Vancomycin HCl 500 mg/ Sodium (Chloride) 100 mls @ 67 mls/hr IVPB [facility] [place]; Protocol Stop: 05/21/18 18:01 Last Admin: 05/18/18 14:34 Dose: 67 mls/hr Metoprolol Tartrate (Lopressor) 12.5 mg PO BID [facility] Last Admin: 05/18/18 18:28 Dose: Not Given Oxycodone/Acetaminophen (Percocet 5/325 Mg Tab) 2 tab PO Q6H PRN PRN Reason: Pain, moderate (4-7) Stop: 05/21/18 14:23 Last Admin: 05/19/18 08:05 Dose: 2 tab Pantoprazole Sodium (Protonix Ec Tab) 40 mg PO DAILY [facility] Last Admin: 05/18/18 10:37 Dose: Not Given Senna/Docusate Sodium (Senokot S 50 Mg-8.6 Mg) 2 tab PO BID [facility] Last Admin: 05/18/18 18:29 Dose: Not Given Sevelamer Carbonate (Renvela) 2.4 gm PO TIDCC [facility] Last Admin: 05/18/18 18:24 Dose: 2.4 gm - Labs Labs: 05/18/18 09:54 05/12/18 07:41 APTT 38 SECONDS (21-34) H 05/03/18 23:27 - Constitutional Appears: Well, Non-toxic - Head Exam Head Exam: ATRAUMATIC, NORMAL INSPECTION - Eye Exam Eye Exam: EOMI, Normal appearance - ENT Exam ENT Exam: Mucous Membranes Moist, Normal Oropharynx - Neck Exam Neck Exam: absent: Lymphadenopathy, Thyromegaly - Respiratory Exam Respiratory Exam: Clear to Ausculation Bilateral. absent: Rales, Rhonchi - Cardiovascular Exam Cardiovascular Exam: +S1, +S2. absent: Rubs - GI/Abdominal Exam GI & Abdominal Exam: Soft, Normal Bowel Sounds - Extremities Exam Extremities Exam: absent: Joint Swelling, Pedal Edema - Neurological Exam Neurological Exam: Alert, Awake, Oriented x3 - Psychiatric Exam Psychiatric exam: Normal Affect, Normal Mood - Skin Skin Exam: Dry, Intact Assessment and Plan (1) ESRD (end stage renal disease) Status: Acute (2) Hypertensive CKD, ESRD on dialysis Status: Acute (3) SBE (subacute bacterial endocarditis) Status: Acute (4) Xanthogranulomatous pyelonephritis Status: Acute (5) Anemia Status: Acute - Assessment and Plan (Free Text) Assessment: Maintain dialysis schedule M,W,F Labs with dialysis Continue current meds, plans for surgical intervention noted
[2018-05-19] MEDS: Pantoprazole 40 mg EC Tab PO SCH (10:24)
[2018-05-19] MEDS: Docusate-Senna 50 mg-8.6 mg Tab PO SCH ×2 (10:24→21:25)
--- NOTE | 2018-05-19 22:47 | CP.PCM.PN ---
Subjective - Subjective Subjective: dictated Objective - Vital Signs/Intake and Output Vital Signs (last 24 hours): Temp Pulse Resp BP Pulse Ox 98.1 F 80 18 121/60 97 05/19/18 15:43 05/19/18 15:43 05/19/18 15:43 05/19/18 18:08 05/19/18 15:43 - Medications Medications: Current Medications Alprazolam (Xanax) 0.5 mg PO Q6 PRN PRN Reason: Anxiety Last Admin: 05/18/18 23:43 Dose: 0.5 mg Aspirin (Aspirin Chewable) 81 mg PO DAILY [facility] Last Admin: 05/19/18 10:24 Dose: 81 mg Calcium Acetate (Phoslo) 1,334 mg PO TIDCC [facility] Last Admin: 05/19/18 18:09 Dose: 1,334 mg Diphenhydramine HCl (Benadryl) 25 mg IVP Q12 PRN PRN Reason: Itching / Pruritus Last Admin: 05/18/18 23:46 Dose: 25 mg Epoetin Zain (Procrit) 10,000 [place] [facility] [place] Last Admin: 05/18/18 12:53 Dose: 10,000 unit Ferrous Sulfate (Feosol) 325 mg PO BID [facility] Last Admin: 05/19/18 18:09 Dose: 325 mg Cefazolin Sodium (Ancef) 1 gm in 50 mls @ 100 mls/hr IVPB Q24H [facility] Last Admin: 05/19/18 07:03 Dose: 100 mls/hr Vancomycin HCl 500 mg/ Sodium (Chloride) 100 mls @ 67 mls/hr [place] [facility] [place] Protocol Stop: 05/21/18 18:01 Last Admin: 05/18/18 14:34 Dose: 67 mls/hr Metoprolol Tartrate (Lopressor) 12.5 mg PO BID [facility] Last Admin: 05/19/18 18:08 Dose: 12.5 mg Oxycodone/Acetaminophen (Percocet 5/325 Mg Tab) 2 tab PO Q6H PRN PRN Reason: Pain, moderate (4-7) Stop: 05/21/18 14:23 Last Admin: 05/19/18 18:13 Dose: 2 tab Pantoprazole Sodium (Protonix Ec Tab) 40 mg PO DAILY [facility] Last Admin: 05/19/18 10:24 Dose: 40 mg Senna/Docusate Sodium (Senokot S 50 Mg-8.6 Mg) 2 tab PO BID [facility] Last Admin: 05/19/18 21:25 Dose: Not Given Sevelamer Carbonate (Renvela) 2.4 gm PO TIDCC [facility] Last Admin: 05/19/18 18:09 Dose: 2.4 gm - Labs Labs: 05/18/18 09:54 05/12/18 07:41 APTT 38 SECONDS (21-34) H 05/03/18 23:27
[2018-05-20] MEDS: DiphenhydrAMINE 50 mg/ml Inj IVP PRN ×2 (00:21→23:57)
[2018-05-20] MEDS: ceFAZolin 1 gm FROZEN Premix 1 GM/50 ML ML IVPB SCH (06:16)
[2018-05-20] MEDS: Sevelamer Carb 2.4 gm/Packet PO SCH ×3 (08:55→17:49)
[2018-05-20] MEDS: Docusate-Senna 50 mg-8.6 mg Tab PO SCH ×3 (09:12→17:50)
[2018-05-20] MEDS: Pantoprazole 40 mg EC Tab PO SCH (09:12)
[2018-05-20] MEDS: Oxycodone/Acetaminophen 5/325 mg Tab PO PRN ×2 (09:18→16:26)
[2018-05-20 14:19] LABS: AMYLASE 72 U/L (30-110); LIPASE 22 U/L (23-300)
--- NOTE | 2018-05-20 14:44 | RAD ---
Date of service: 05/20/2018 PROCEDURE: Radiographs of the chest and abdomen (obstructive series) HISTORY: pt complains of nausea and vomiting COMPARISON: CT abdomen and pelvis from 04/30/2018. TECHNIQUE: AP radiograph of the chest, with upright and supine radiographs of the abdomen. FINDINGS: CHEST: Lungs: There is moderate pulmonary venous congestion, mild interstitial pulmonary edema and prominent central vasculature. There is bibasilar atelectasis. Cardiovascular: Mild cardiomegaly. No aortic atherosclerotic calcification present Pleura: Small pleural effusions. No pneumothorax. Other findings: None. ABDOMEN AND PELVIS: Bowel: There is moderate amount of stool in the colon. No evidence of mechanical obstruction. Free air: None. Bones: Unremarkable. Other findings: There is a right-sided ureteral stent. There are multiple large right renal stones and a large staghorn stone in the right lower pole. IMPRESSION: Constipation. Nonobstructive bowel gas pattern. Suspect of mild congestive heart failure.
--- NOTE | 2018-05-20 20:14 | CP.PCM.PN ---
Subjective - Subjective Subjective: dictated Objective - Vital Signs/Intake and Output Vital Signs (last 24 hours): Temp Pulse Resp BP Pulse Ox 98.3 F 70 20 105/48 L 99 05/20/18 15:42 05/20/18 15:42 05/20/18 15:42 05/20/18 17:50 05/20/18 15:42 - Medications Medications: Current Medications Alprazolam (Xanax) 0.5 mg PO Q6 PRN PRN Reason: Anxiety Last Admin: 05/20/18 00:21 Dose: 0.5 mg Aspirin (Aspirin Chewable) 81 mg PO DAILY [facility] Last Admin: 05/20/18 09:12 Dose: 81 mg Calcium Acetate (Phoslo) 1,334 mg PO TIDCC [facility] Last Admin: 05/20/18 17:49 Dose: 1,334 mg Diphenhydramine HCl (Benadryl) 25 mg IVP Q12 PRN PRN Reason: Itching / Pruritus Last Admin: 05/20/18 00:21 Dose: 25 mg Epoetin Zain (Procrit) 10,000 unit IV [facility] [place] Last Admin: 05/18/18 12:53 Dose: 10,000 unit Ferrous Sulfate (Feosol) 325 mg PO BID [facility] Last Admin: 05/20/18 17:50 Dose: 325 mg Cefazolin Sodium (Ancef) 1 gm in 50 mls @ 100 mls/hr IVPB Q24H [facility] Last Admin: 05/20/18 06:16 Dose: 100 mls/hr Vancomycin HCl 500 mg/ Sodium (Chloride) 100 mls @ 67 mls/hr IVPB [facility] [place]; Protocol Stop: 05/21/18 18:01 Last Admin: 05/18/18 14:34 Dose: 67 mls/hr Metoprolol Tartrate (Lopressor) 12.5 mg PO BID [facility] Last Admin: 05/20/18 17:50 Dose: Not Given Oxycodone/Acetaminophen (Percocet 5/325 Mg Tab) 2 tab PO Q6H PRN PRN Reason: Pain, moderate (4-7) Stop: 05/21/18 14:23 Last Admin: 05/20/18 16:26 Dose: 2 tab Pantoprazole Sodium (Protonix Ec Tab) 40 mg PO DAILY [facility] Last Admin: 05/20/18 09:12 Dose: 40 mg Senna/Docusate Sodium (Senokot S 50 Mg-8.6 Mg) 2 tab PO BID [facility] Last Admin: 05/20/18 17:50 Dose: 2 tab Sevelamer Carbonate (Renvela) 2.4 gm PO TIDCC [facility] Last Admin: 05/20/18 17:49 Dose: 2.4 gm - Labs Labs: 05/18/18 09:54 05/12/18 07:41 APTT 38 SECONDS (21-34) H 05/03/18 23:27
--- NOTE | 2018-05-21 03:06 | PN ---
DATE: 05/20/2018 SUBJECTIVE: The patient, Zac, is afebrile. No shortness of breath. He has back pain and abdominal pain. No nausea or vomiting. He had abdominal pain earlier on and amylase and lipase were negative. PHYSICAL EXAMINATION: VITAL SIGNS: Blood pressure is 105/48, pulse 70, respiratory rate 20, and temperature 98.3. LUNGS: Clear. CARDIOVASCULAR SYSTEM: S1 and S2, regular. ABDOMEN: Soft. ASSESSMENT: 1. Septicemia. 2. Nephrolithiasis with hydronephrosis. 3. Chronic kidney disease. 4. Hepatitis C. PLAN: Antibiotics. Mikel Marc MD
[2018-05-21] MEDS: ceFAZolin 1 gm FROZEN Premix 1 GM/50 ML ML IVPB SCH (06:28)
[2018-05-21] MEDS: Oxycodone/Acetaminophen 5/325 mg Tab PO PRN ×2 (06:31→13:37)
[2018-05-21] MEDS: Sevelamer Carb 2.4 gm/Packet PO SCH ×3 (08:32→17:48)
[2018-05-21] MEDS: Pantoprazole 40 mg EC Tab PO SCH ×2 (09:50→13:32)
[2018-05-21] MEDS: Epoetin Alfa 10,000 unit/ml Dialysis IV SCH (10:29)
[2018-05-21] MEDS: Docusate-Senna 50 mg-8.6 mg Tab PO SCH ×2 (10:30→17:48)
--- NOTE | 2018-05-21 10:39 | CP.PCM.PN ---
Subjective - Date & Time of Evaluation Date of Evaluation: 05/21/18 Time of Evaluation: 10:37 - Subjective Subjective: seen and examined no events no changes c/o leg swelling c/o sharp lower abdominal pain since yesterday. +nausea + vomiting this am no di arrhea no fevers chills chest pain dizziness blood cx neg Objective - Vital Signs/Intake and Output Vital Signs (last 24 hours): Temp Pulse Resp BP Pulse Ox 97.5 F L 63 18 102/49 L 99 05/21/18 09:05 05/21/18 09:05 05/21/18 09:05 05/21/18 10:05 05/21/18 09:05 - Medications Medications: Current Medications Alprazolam (Xanax) 0.5 mg PO Q6 PRN PRN Reason: Anxiety Last Admin: 05/20/18 23:57 Dose: 0.5 mg Aspirin (Aspirin Chewable) 81 mg PO DAILY [facility] Last Admin: 05/21/18 09:49 Dose: Not Given Calcium Acetate (Phoslo) 1,334 mg PO TIDCC [facility] Last Admin: 05/21/18 08:32 Dose: 1,334 mg Diphenhydramine HCl (Benadryl) 25 mg IVP Q12 PRN PRN Reason: Itching / Pruritus Last Admin: 05/20/18 23:57 Dose: 25 mg Epoetin Zain (Procrit) 10,000 unit IV [facility] [place] Last Admin: 05/21/18 10:29 Dose: 10,000 unit Ferrous Sulfate (Feosol) 325 mg PO BID [facility] Last Admin: 05/21/18 09:49 Dose: Not Given Cefazolin Sodium (Ancef) 1 gm in 50 mls @ 100 mls/hr IVPB Q24H [facility] Last Admin: 05/21/18 06:28 Dose: 100 mls/hr Vancomycin HCl 500 mg/ Sodium (Chloride) 100 mls @ 67 mls/hr IVPB [facility] [place]; Protocol Stop: 05/21/18 18:01 Last Admin: 05/21/18 09:50 Dose: Not Given Metoprolol Tartrate (Lopressor) 12.5 mg PO BID [facility] Last Admin: 05/21/18 09:49 Dose: Not Given Oxycodone/Acetaminophen (Percocet 5/325 Mg Tab) 2 tab PO Q6H PRN PRN Reason: Pain, moderate (4-7) Stop: 05/21/18 14:23 Last Admin: 05/21/18 06:31 Dose: 2 tab Pantoprazole Sodium (Protonix Ec Tab) 40 mg PO DAILY [facility] Last Admin: 05/21/18 09:50 Dose: Not Given Senna/Docusate Sodium (Senokot S 50 Mg-8.6 Mg) 2 tab PO BID [facility] Last Admin: 05/20/18 17:50 Dose: 2 tab Sevelamer Carbonate (Renvela) 2.4 gm PO TIDCC [facility] Last Admin: 05/21/18 08:32 Dose: 2.4 gm - Labs Labs: 05/18/18 09:54 05/12/18 07:41 APTT 38 SECONDS (21-34) H 05/03/18 23:27 - Constitutional Appears: No Acute Distress, Chronically Ill - Head Exam Head Exam: NORMAL INSPECTION, NORMOCEPHALIC - Eye Exam Eye Exam: Normal appearance, PERRL - ENT Exam ENT Exam: Mucous Membranes Moist, Normal Exam - Neck Exam Neck Exam: Full ROM, Normal Inspection - Respiratory Exam Respiratory Exam: Clear to Ausculation Bilateral, NORMAL BREATHING PATTERN - Cardiovascular Exam Cardiovascular Exam: REGULAR RHYTHM - GI/Abdominal Exam GI & Abdominal Exam: Distended, Soft, Normal Bowel Sounds - Extremities Exam Extremities Exam: Normal Inspection, Pedal Edema - Neurological Exam Neurological Exam: Alert, Awake, Oriented x3 - Psychiatric Exam Psychiatric exam: Normal Affect, Normal Mood - Skin Skin Exam: Dry, Normal Color, Warm Assessment and Plan (1) Bacteremia Status: Acute (2) ESRD (end stage renal disease) Status: Acute (3) SBE (subacute bacterial endocarditis) Status: Acute (4) Xanthogranulomatous pyelonephritis Status: Acute (5) Atrial fibrillation Status: Acute - Assessment and Plan (Free Text) Assessment: esrd on hd endocarditis / av vegetation chronic pyelonephritis anemia chf, nl EF, pulm htn plan: maintain hd await surgical intervention antibiotics ?abdominal imaging
--- NOTE | 2018-05-21 12:47 | CP.PCM.PN ---
<Iban Barba - Last Filed: 05/21/18 14:14> Subjective - Date & Time of Evaluation Date of Evaluation: 05/21/18 Time of Evaluation: 10:00 - Subjective Subjective: Iban Barba DO, PGY-1 Cardiology Progress Note for Dr. Schultz Patient was seen and examined at bedside this AM. He complains of worsening LE edema and abdominal pain with nausea/vomiting starting yesterday. Objective - Vital Signs/Intake and Output Vital Signs (last 24 hours): Temp Pulse Resp BP Pulse Ox 97.5 F L 63 18 100/62 99 05/21/18 09:05 05/21/18 09:05 05/21/18 09:05 05/21/18 12:05 05/21/18 09:05 - Medications Medications: Current Medications Alprazolam (Xanax) 0.5 mg PO Q6 PRN PRN Reason: Anxiety Last Admin: 05/20/18 23:57 Dose: 0.5 mg Aspirin (Aspirin Chewable) 81 mg PO DAILY [facility] Last Admin: 05/21/18 09:49 Dose: Not Given Calcium Acetate (Phoslo) 1,334 mg PO TIDCC [facility] Last Admin: 05/21/18 12:40 Dose: Not Given Diphenhydramine HCl (Benadryl) 25 mg IVP Q12 PRN PRN Reason: Itching / Pruritus Last Admin: 05/20/18 23:57 Dose: 25 mg Epoetin Zain (Procrit) 10,000 unit IV [facility] [place] [facility] Last Admin: 05/21/18 10:29 Dose: 10,000 unit Ferrous Sulfate (Feosol) 325 mg PO BID [facility] Last Admin: 05/21/18 09:49 Dose: Not Given Cefazolin Sodium (Ancef) 1 gm in 50 mls @ 100 mls/hr IVPB Q24H [facility] Last Admin: 05/21/18 06:28 Dose: 100 mls/hr Vancomycin HCl 500 mg/ Sodium (Chloride) 100 mls @ 67 mls/hr IVPB [facility] [place]; Protocol Stop: 05/21/18 18:01 Last Admin: 05/21/18 09:50 Dose: Not Given Metoprolol Tartrate (Lopressor) 12.5 mg PO BID [facility] Last Admin: 05/21/18 09:49 Dose: Not Given Oxycodone/Acetaminophen (Percocet 5/325 Mg Tab) 2 tab PO Q6H PRN PRN Reason: Pain, moderate (4-7) Stop: 05/21/18 14:23 Last Admin: 05/21/18 06:31 Dose: 2 tab Pantoprazole Sodium (Protonix Ec Tab) 40 mg PO DAILY [facility] Last Admin: 05/21/18 09:50 Dose: Not Given Senna/Docusate Sodium (Senokot S 50 Mg-8.6 Mg) 2 tab PO BID [facility] Last Admin: 05/21/18 10:30 Dose: Not Given Sevelamer Carbonate (Renvela) 2.4 gm PO TIDCC [facility] Last Admin: 05/21/18 12:40 Dose: Not Given - Labs Labs: 05/18/18 09:54 05/12/18 07:41 APTT 38 SECONDS (21-34) H 05/03/18 23:27 - Constitutional Appears: Non-toxic, No Acute Distress - Head Exam Head Exam: ATRAUMATIC, NORMOCEPHALIC - Eye Exam Eye Exam: EOMI, Normal appearance, PERRL - ENT Exam ENT Exam: Mucous Membranes Moist - Neck Exam Neck Exam: Full ROM, Normal Inspection - Respiratory Exam Respiratory Exam: Clear to Ausculation Bilateral, NORMAL BREATHING PATTERN. absent: Rales, Rhonchi, Wheezes - Cardiovascular Exam Cardiovascular Exam: Diastolic murmur (unchanged from prior exams, c/w aortic insufficiency), REGULAR RHYTHM, +S1, +S2. absent: Gallop, Rubs - GI/Abdominal Exam GI & Abdominal Exam: Soft, Normal Bowel Sounds. absent: Tenderness - Extremities Exam Extremities Exam: Full ROM, Pedal Edema. absent: Tenderness - Neurological Exam Neurological Exam: Alert, Awake, Oriented x3 - Psychiatric Exam Psychiatric exam: Normal Affect, Normal Mood - Skin Skin Exam: Dry, Intact, Warm Assessment and Plan - Assessment and Plan (Free Text) Assessment: 48 yo M with PMH of ESRD (M,W,F hemodialysis), severe aortic valve insufficiency, prior episode of endocarditis, HTN, anxiety, anemia, seizure disorder, hepatitis C, IVDA (last use 2014), PE (previously on Coumadin) presented to [facility] ED with L-sided CP. He was subsequently found to have severe aortic regurgitation on echo and mobile mass on aortic valve left cusp c/w vegetation. Still awaiting transfer to [place]. Has been having w orsening peripheral edema but refused extra dialysis session last week. Plan: 1. Severe aortic regurgitation Worsened LE edema likely 2/2 combination of severe aortic insufficiency, CHF w/pulmonary HTN, and ESRD Patient refused extra dialysis session last week Still awaiting transfer to [place] for surgery Further management of peripheral edema per nephrology 2. Aortic valve vegetation/endocarditis Continue vanc/ancef until surgery 3. HFpEF with severe pulmonary HTN Continue lopressor 25 mg BID Aortic valve replacement to be performed with nephrectomy on [place], still unsure of surgery date Case and plan reviewed and discussed with my attending Dr. Antoine Barba, DO IM Resident PGY-1 <Naresh Schultz - Last Filed: 05/22/18 15:59> Objective - Vital Signs/Intake and Output Vital Signs (last 24 hours): Temp Pulse Resp BP Pulse Ox 97.9 F 98 H 20 95/43 L 97 05/22/18 15:55 05/22/18 15:55 05/22/18 15:55 05/22/18 15:55 05/22/18 15:55 - Medications Medications: Current Medications Alprazolam (Xanax) 0.5 mg PO Q6 PRN PRN Reason: Anxiety Last Admin: 05/20/18 23:57 Dose: 0.5 mg Aspirin (Aspirin Chewable) 81 mg PO DAILY [facility] Last Admin: 05/22/18 09:09 Dose: 81 mg Calcium Acetate (Phoslo) 1,334 mg PO TIDCC [facility] Last Admin: 05/22/18 13:09 Dose: Not Given Diphenhydramine HCl (Benadryl) 25 mg IVP Q12 PRN PRN Reason: Itching / Pruritus Last Admin: 05/20/18 23:57 Dose: 25 mg Epoetin Zain (Procrit) 10,000 unit IV MWF [facility] Last Admin: 05/21/18 10:29 Dose: 10,000 unit Ferrous Sulfate (Feosol) 325 mg PO BID [facility] Last Admin: 05/22/18 09:09 Dose: 325 mg Cefazolin Sodium (Ancef) 1 gm in 50 mls @ 100 mls/hr IVPB Q24H [facility] Last Admin: 05/22/18 05:45 Dose: 100 mls/hr Metoprolol Tartrate (Lopressor) 12.5 mg PO BID [facility] Last Admin: 05/22/18 09:09 Dose: 12.5 mg Oxycodone/Acetaminophen (Percocet 5/325 Mg Tab) 2 tab PO Q6H PRN PRN Reason: Pain, moderate (4-7) Stop: 05/25/18 09:54 Last Admin: 05/22/18 10:26 Dose: 2 tab Pantoprazole Sodium (Protonix Ec Tab) 40 mg PO DAILY [facility] Last Admin: 05/22/18 09:11 Dose: 40 mg Senna/Docusate Sodium (Senokot S 50 Mg-8.6 Mg) 2 tab PO BID [facility] Last Admin: 05/22/18 09:10 Dose: 2 tab Sevelamer Carbonate (Renvela) 2.4 gm PO TIDCC [facility] Last Admin: 05/22/18 13:08 Dose: Not Given - Labs Labs: 05/21/18 13:39 05/21/18 17:33 APTT 38 SECONDS (21-34) H 05/03/18 23:27 Attending/Attestation - Attestation I have personally seen and examined this patient.: Yes I have fully participated in the care of the patient.: Yes I have reviewed all pertinent clinical information, including history, physical exam and plan: Yes
[2018-05-21 13:47] LABS: BASO % 0.8 % (0.0-2.0); EOS % 0.9 % (0.0-4.0); HEMOGLOBIN 10.8 g/dL (12.0-18.0); LYMPH # 1.2 K/uL (1.0-4.3); LYMPH % 22.1 % (20.0-40.0); MEAN CELL VOLUME 95.7 fL (80.0-94.0); MEAN CORPUSCULAR HEMOGLOBIN 31.5 pg (27.0-31.0); MEAN CORPUSCULAR HGB CONC 32.9 g/dL (33.0-37.0); MEAN PLATELET VOLUME 9.4 fL (7.2-11.7); MONO # 0.4 K/uL (0.0-0.8); MONO % 7.1 % (0.0-10.0); NEUT # 3.6 K/uL (1.8-7.0); NEUT % 69.1 % (50.0-75.0); NRBC % 0.1 % (0.0-2.0); RBC 3.43 Mil/uL (4.40-5.90); RED CELL DISTRIBUTION WIDTH 18.3 % (11.5-14.5); WHITE BLOOD COUNT 5.2 K/uL (4.8-10.8)
--- NOTE | 2018-05-21 13:54 | CP.PCM.PN ---
Subjective - Date & Time of Evaluation Date of Evaluation: 05/21/18 Time of Evaluation: 13:54 - Subjective Subjective: AFEBRILE, NO ACUTE EVENTS OVERNIGHT. B/L LE EDEMA PRESENT. C/O ABDOMINAL PAIN AND NAUSEA TOLERATING iv ANTIBIOTICS FOR STREPTOCOCCUS MITIS BACTEREMIA/AV-ENDOCARDITIS ON IV CEFAZOLIN AND IV VANCOMYCIN POST HD MWF CONTINUE RX FOR NOW TILL SURGERY. REPEAT BLOOD CULTURES 05/09/18 2:2 SETS -VE X TO DATE REPEAT BLOOD CULTURES 05/03/18 -VE GROWTH X 5DAYS. CASE DISCUSSED WITH CARDIOLOGY DR DILLARD. AWAITING TRANSFER TO [place] FOR LEAKY AV/AND RT NEPHRECTOMY Objective - Vital Signs/Intake and Output Vital Signs (last 24 hours): Temp Pulse Resp BP Pulse Ox 98.2 F 74 20 114/63 98 05/21/18 13:10 05/21/18 13:10 05/21/18 13:10 05/21/18 13:10 05/21/18 13:10 - Medications Medications: Current Medications Alprazolam (Xanax) 0.5 mg PO Q6 PRN PRN Reason: Anxiety Last Admin: 05/20/18 23:57 Dose: 0.5 mg Aspirin (Aspirin Chewable) 81 mg PO DAILY [facility] Last Admin: 05/21/18 13:32 Dose: 81 mg Calcium Acetate (Phoslo) 1,334 mg PO TIDCC [facility] Last Admin: 05/21/18 12:40 Dose: Not Given Diphenhydramine HCl (Benadryl) 25 mg IVP Q12 PRN PRN Reason: Itching / Pruritus Last Admin: 05/20/18 23:57 Dose: 25 mg Epoetin Zain (Procrit) 10,000 unit IV MWF [facility] Last Admin: 05/21/18 10:29 Dose: 10,000 unit Ferrous Sulfate (Feosol) 325 mg PO BID [facility] Last Admin: 05/21/18 09:49 Dose: Not Given Cefazolin Sodium (Ancef) 1 gm in 50 mls @ 100 mls/hr IVPB Q24H [facility] Last Admin: 05/21/18 06:28 Dose: 100 mls/hr Vancomycin HCl 500 mg/ Sodium (Chloride) 100 mls @ 67 mls/hr IVPB [facility]; Protocol Stop: 05/21/18 18:01 Last Admin: 05/21/18 13:32 Dose: 67 mls/hr Metoprolol Tartrate (Lopressor) 12.5 mg PO BID [facility] Last Admin: 05/21/18 09:49 Dose: Not Given Oxycodone/Acetaminophen (Percocet 5/325 Mg Tab) 2 tab PO Q6H PRN PRN Reason: Pain, moderate (4-7) Stop: 05/21/18 14:23 Last Admin: 05/21/18 13:37 Dose: 2 tab Pantoprazole Sodium (Protonix Ec Tab) 40 mg PO DAILY [facility] Last Admin: 05/21/18 13:32 Dose: 40 mg Senna/Docusate Sodium (Senokot S 50 Mg-8.6 Mg) 2 tab PO BID [facility] Last Admin: 05/21/18 10:30 Dose: Not Given Sevelamer Carbonate (Renvela) 2.4 gm PO TIDCC [facility] Last Admin: 05/21/18 12:40 Dose: Not Given - Labs Labs: 05/21/18 13:39 05/12/18 07:41 APTT 38 SECONDS (21-34) H 05/03/18 23:27 - Constitutional Appears: No Acute Distress - Head Exam Head Exam: NORMAL INSPECTION - Eye Exam Eye Exam: EOMI Pupil Exam: NORMAL ACCOMODATION - ENT Exam ENT Exam: Normal Oropharynx - Neck Exam Neck Exam: Normal Inspection - Respiratory Exam Respiratory Exam: Decreased Breath Sounds, NORMAL BREATHING PATTERN - Cardiovascular Exam Cardiovascular Exam: REGULAR RHYTHM, +S1, +S2, Murmur - GI/Abdominal Exam GI & Abdominal Exam: Soft, Tenderness (MILD TENDERNESS LOWER ABDOMEN.), Normal Bowel Sounds - Extremities Exam Extremities Exam: Pedal Edema (2+VE). absent: Calf Tenderness - Neurological Exam Neurological Exam: Alert, Awake, CN II-XII Intact, Normal Gait, Oriented x3, Reflexes Normal - Psychiatric Exam Psychiatric exam: Normal Mood - Skin Skin Exam: Normal Color, Warm Assessment and Plan (1) Bacteremia Status: Acute (2) SBE (subacute bacterial endocarditis) Status: Acute (3) Xanthogranulomatous pyelonephritis Status: Acute (4) Hypertensive CKD, ESRD on dialysis Status: Acute
[2018-05-21 18:22] LABS: CALCIUM 9.2 mg/dl (8.6-10.4)
--- NOTE | 2018-05-21 22:30 | CP.PCM.PN ---
Subjective - Subjective Subjective: dictated Objective - Vital Signs/Intake and Output Vital Signs (last 24 hours): Temp Pulse Resp BP Pulse Ox 97.5 F L 78 20 101/54 L 95 05/21/18 15:35 05/21/18 15:35 05/21/18 15:35 05/21/18 17:48 05/21/18 15:35 - Medications Medications: Current Medications Alprazolam (Xanax) 0.5 mg PO Q6 PRN PRN Reason: Anxiety Last Admin: 05/20/18 23:57 Dose: 0.5 mg Aspirin (Aspirin Chewable) 81 mg PO DAILY [facility] Last Admin: 05/21/18 13:32 Dose: 81 mg Calcium Acetate (Phoslo) 1,334 mg PO TIDCC [facility] Last Admin: 05/21/18 17:47 Dose: 1,334 mg Diphenhydramine HCl (Benadryl) 25 mg IVP Q12 PRN PRN Reason: Itching / Pruritus Last Admin: 05/20/18 23:57 Dose: 25 mg Epoetin Zain (Procrit) 10,000 unit IV MWF [facility] Last Admin: 05/21/18 10:29 Dose: 10,000 unit Ferrous Sulfate (Feosol) 325 mg PO BID [facility] Last Admin: 05/21/18 17:47 Dose: 325 mg Cefazolin Sodium (Ancef) 1 gm in 50 mls @ 100 mls/hr IVPB Q24H [facility] Last Admin: 05/21/18 06:28 Dose: 100 mls/hr Metoprolol Tartrate (Lopressor) 12.5 mg PO BID [facility] Last Admin: 05/21/18 17:48 Dose: Not Given Pantoprazole Sodium (Protonix Ec Tab) 40 mg PO DAILY [facility] Last Admin: 05/21/18 13:32 Dose: 40 mg Senna/Docusate Sodium (Senokot S 50 Mg-8.6 Mg) 2 tab PO BID [facility] Last Admin: 05/21/18 17:48 Dose: Not Given Sevelamer Carbonate (Renvela) 2.4 gm PO TIDCC [facility] Last Admin: 05/21/18 17:48 Dose: 2.4 gm - Labs Labs: 05/21/18 13:39 05/21/18 17:33 APTT 38 SECONDS (21-34) H 05/03/18 23:27
--- NOTE | 2018-05-22 03:21 | PN ---
DATE: 05/21/2018 SUBJECTIVE: The patient is on antibiotics. The patient is seen by ID and we need to determine how long the patient needs antibiotic before he can have nephrectomy. PHYSICAL EXAMINATION: VITAL SIGNS: Blood pressure 109/58, pulse 78, respiratory rate is 20, temperature 97.5. LUNGS: Clear. CARDIOVASCULAR SYSTEM: S1, S2 regular. ABDOMEN: Soft. ASSESSMENT: 1. Bilateral pyelonephrosis. 2. Chronic kidney disease, on hemodialysis. 3. Aortic incompetence. PLAN: Continue antibiotics. Discussed with ID about antibiotic course. Mikel Marc MD
[2018-05-22] MEDS: ceFAZolin 1 gm FROZEN Premix 1 GM/50 ML ML IVPB SCH (05:45)
[2018-05-22] MEDS: Sevelamer Carb 2.4 gm/Packet PO SCH ×3 (09:09→17:57)
[2018-05-22] MEDS: Docusate-Senna 50 mg-8.6 mg Tab PO SCH ×2 (09:10→17:57)
[2018-05-22] MEDS: Pantoprazole 40 mg EC Tab PO SCH (09:11)
[2018-05-22] MEDS: Oxycodone/Acetaminophen 5/325 mg Tab PO PRN (10:26)
--- NOTE | 2018-05-22 12:13 | CP.PCM.PN ---
Subjective - Date & Time of Evaluation Date of Evaluation: 05/22/18 Time of Evaluation: 12:12 - Subjective Subjective: seen and examined no events 10 point ros neg except abdominal pain unchanged, leg swelling unchanged Objective - Vital Signs/Intake and Output Vital Signs (last 24 hours): Temp Pulse Resp BP Pulse Ox 98.1 F 78 20 116/46 L 98 05/22/18 08:05 05/22/18 08:05 05/22/18 08:05 05/22/18 09:09 05/22/18 08:05 - Medications Medications: Current Medications Alprazolam (Xanax) 0.5 mg PO Q6 PRN PRN Reason: Anxiety Last Admin: 05/20/18 23:57 Dose: 0.5 mg Aspirin (Aspirin Chewable) 81 mg PO DAILY [facility] Last Admin: 05/22/18 09:09 Dose: 81 mg Calcium Acetate (Phoslo) 1,334 mg PO TIDCC [facility] Last Admin: 05/22/18 09:09 Dose: 1,334 mg Diphenhydramine HCl (Benadryl) 25 mg IVP Q12 PRN PRN Reason: Itching / Pruritus Last Admin: 05/20/18 23:57 Dose: 25 mg Epoetin Zain (Procrit) 10,000 unit IV MWF [facility] Last Admin: 05/21/18 10:29 Dose: 10,000 unit Ferrous Sulfate (Feosol) 325 mg PO BID [facility] Last Admin: 05/22/18 09:09 Dose: 325 mg Cefazolin Sodium (Ancef) 1 gm in 50 mls @ 100 mls/hr IVPB Q24H [facility] Last Admin: 05/22/18 05:45 Dose: 100 mls/hr Metoprolol Tartrate (Lopressor) 12.5 mg PO BID [facility] Last Admin: 05/22/18 09:09 Dose: 12.5 mg Oxycodone/Acetaminophen (Percocet 5/325 Mg Tab) 2 tab PO Q6H PRN PRN Reason: Pain, moderate (4-7) Stop: 05/25/18 09:54 Last Admin: 05/22/18 10:26 Dose: 2 tab Pantoprazole Sodium (Protonix Ec Tab) 40 mg PO DAILY [facility] Last Admin: 05/22/18 09:11 Dose: 40 mg Senna/Docusate Sodium (Senokot S 50 Mg-8.6 Mg) 2 tab PO BID [facility] Last Admin: 05/22/18 09:10 Dose: 2 tab Sevelamer Carbonate (Renvela) 2.4 gm PO TIDCC [facility] Last Admin: 05/22/18 09:09 Dose: 2.4 gm - Labs Labs: 05/21/18 13:39 05/21/18 17:33 APTT 38 SECONDS (21-34) H 05/03/18 23:27 - Constitutional Appears: No Acute Distress, Chronically Ill - Head Exam Head Exam: NORMAL INSPECTION, NORMOCEPHALIC - Eye Exam Eye Exam: Normal appearance, PERRL - ENT Exam ENT Exam: Mucous Membranes Moist, Normal Exam - Neck Exam Neck Exam: Full ROM, Normal Inspection - Respiratory Exam Respiratory Exam: Decreased Breath Sounds, NORMAL BREATHING PATTERN - Cardiovascular Exam Cardiovascular Exam: REGULAR RHYTHM, RRR - GI/Abdominal Exam GI & Abdominal Exam: Distended, Soft - Extremities Exam Extremities Exam: Full ROM, Pedal Edema - Neurological Exam Neurological Exam: Alert, Awake, Oriented x3 - Psychiatric Exam Psychiatric exam: Normal Affect, Normal Mood - Skin Skin Exam: Normal Color, Warm Assessment and Plan (1) Bacteremia Status: Acute (2) ESRD (end stage renal disease) Status: Acute (3) SBE (subacute bacterial endocarditis) Status: Acute (4) Xanthogranulomatous pyelonephritis Status: Acute (5) Atrial fibrillation Status: Acute - Assessment and Plan (Free Text) Assessment: esrd on hd endocarditis / av vegetation chronic pyelonephritis anemia chf, nl EF, pulm htn plan: maintain hd await surgical intervention antibiotics fluid restriction ordered
--- NOTE | 2018-05-22 12:44 | CP.PCM.PN ---
<Iban Barba - Last Filed: 05/22/18 12:51> Subjective - Date & Time of Evaluation Date of Evaluation: 05/22/18 Time of Evaluation: 10:30 - Subjective Subjective: Iban Barba DO, PGY-1 Cardiology Progress Note for Dr. Schultz Patient was seen and examined at bedside this AM. He reports he feels the same and is frustrated that he hasn't been able to be transferred to [place] yet. Apparently, the problem was that he was unable to show up for his surgery which was planned for four weeks ago because he had violated probation and was in detention at the time. Objective - Vital Signs/Intake and Output Vital Signs (last 24 hours): Temp Pulse Resp BP Pulse Ox 98.1 F 78 20 116/46 L 98 05/22/18 08:05 05/22/18 08:05 05/22/18 08:05 05/22/18 09:09 05/22/18 08:05 - Medications Medications: Current Medications Alprazolam (Xanax) 0.5 mg PO Q6 PRN PRN Reason: Anxiety Last Admin: 05/20/18 23:57 Dose: 0.5 mg Aspirin (Aspirin Chewable) 81 mg PO DAILY [facility] Last Admin: 05/22/18 09:09 Dose: 81 mg Calcium Acetate (Phoslo) 1,334 mg PO TIDCC [facility] Last Admin: 05/22/18 09:09 Dose: 1,334 mg Diphenhydramine HCl (Benadryl) 25 mg IVP Q12 PRN PRN Reason: Itching / Pruritus Last Admin: 05/20/18 23:57 Dose: 25 mg Epoetin Zain (Procrit) 10,000 unit IV MWF [facility] Last Admin: 05/21/18 10:29 Dose: 10,000 unit Ferrous Sulfate (Feosol) 325 mg PO BID [facility] Last Admin: 05/22/18 09:09 Dose: 325 mg Cefazolin Sodium (Ancef) 1 gm in 50 mls @ 100 mls/hr IVPB Q24H [facility] Last Admin: 05/22/18 05:45 Dose: 100 mls/hr Metoprolol Tartrate (Lopressor) 12.5 mg PO BID [facility] Last Admin: 05/22/18 09:09 Dose: 12.5 mg Oxycodone/Acetaminophen (Percocet 5/325 Mg Tab) 2 tab PO Q6H PRN PRN Reason: Pain, moderate (4-7) Stop: 05/25/18 09:54 Last Admin: 05/22/18 10:26 Dose: 2 tab Pantoprazole Sodium (Protonix Ec Tab) 40 mg PO DAILY [facility] Last Admin: 05/22/18 09:11 Dose: 40 mg Senna/Docusate Sodium (Senokot S 50 Mg-8.6 Mg) 2 tab PO BID [facility] Last Admin: 05/22/18 09:10 Dose: 2 tab Sevelamer Carbonate (Renvela) 2.4 gm PO TIDCC [facility] Last Admin: 05/22/18 09:09 Dose: 2.4 gm - Labs Labs: 05/21/18 13:39 05/21/18 17:33 APTT 38 SECONDS (21-34) H 05/03/18 23:27 - Constitutional Appears: Non-toxic, No Acute Distress - Head Exam Head Exam: ATRAUMATIC, NORMOCEPHALIC - Eye Exam Eye Exam: EOMI, Normal appearance, PERRL - ENT Exam ENT Exam: Mucous Membranes Moist - Neck Exam Neck Exam: Full ROM, Normal Inspection - Respiratory Exam Respiratory Exam: Clear to Ausculation Bilateral. absent: Rales, Rhonchi, Wheezes - Cardiovascular Exam Cardiovascular Exam: Diastolic murmur (unchanged from prior exams), REGULAR RHYTHM, RRR. absent: Gallop, Rubs - GI/Abdominal Exam GI & Abdominal Exam: Soft, Normal Bowel Sounds. absent: Tenderness - Extremities Exam Extremities Exam: Normal Inspection. absent: Pedal Edema - Back Exam Back Exam: Full ROM, NORMAL INSPECTION - Neurological Exam Neurological Exam: Alert, Awake, Oriented x3 - Psychiatric Exam Psychiatric exam: Normal Affect, Normal Mood - Skin Skin Exam: Dry, Intact, Warm Assessment and Plan - Assessment and Plan (Free Text) Assessment: 48 yo M with PMH of ESRD (M,W,F hemodialysis), severe aortic valve insufficiency, prior episode of endocarditis, HTN, anxiety, anemia, seizure disorder, hepatitis C, IVDA (last use 2014), PE (previously on Coumadin) presented to [facility] ED with L-sided CP. He was subsequently found to have severe aortic regurgitation on echo and mobile mass on aortic valve left cusp c/w vegetation. Plan: 1. Severe aortic regurgitation Worsened LE edema likely 2/2 combination of severe aortic insufficiency, CHF w/pulmonary HTN, and ESRD Patient refused extra dialysis session last week Spoke with Dr. Suze Fenton, urologist at [place], who stated that patient did not follow up for scheduled surgery dates twice Dr. Fenton suggested consulting Dr. Estella Ferro for radical nephrectomy which can be completed at [facility] When scheduled, Dr. Fenton will come to assist Dr. Ferro with nephrectomy After nephrectomy is complete, will plan on transfer to [place] for aortic valve replacement 2. Aortic valve vegetation/endocarditis Continue vanc/ancef throughout surgeries 3. HFpEF with severe pulmonary HTN Continue lopressor 25 mg BID Case and plan reviewed and discussed with my attending Dr. Antoine Barba, IM Resident PGY-1 <Naresh Schultz - Last Filed: 05/22/18 16:01> Objective - Vital Signs/Intake and Output Vital Signs (last 24 hours): Temp Pulse Resp BP Pulse Ox 97.9 F 98 H 20 95/43 L 97 05/22/18 15:55 05/22/18 15:55 05/22/18 15:55 05/22/18 15:55 05/22/18 15:55 - Medications Medications: Current Medications Alprazolam (Xanax) 0.5 mg PO Q6 PRN PRN Reason: Anxiety Last Admin: 05/20/18 23:57 Dose: 0.5 mg Aspirin (Aspirin Chewable) 81 mg PO DAILY [facility] Last Admin: 05/22/18 09:09 Dose: 81 mg Calcium Acetate (Phoslo) 1,334 mg PO TIDCC [facility] Last Admin: 05/22/18 13:09 Dose: Not Given Diphenhydramine HCl (Benadryl) 25 mg IVP Q12 PRN PRN Reason: Itching / Pruritus Last Admin: 05/20/18 23:57 Dose: 25 mg Epoetin Zain (Procrit) 10,000 unit IV MWF [facility] Last Admin: 05/21/18 10:29 Dose: 10,000 unit Ferrous Sulfate (Feosol) 325 mg PO BID [facility] Last Admin: 05/22/18 09:09 Dose: 325 mg Cefazolin Sodium (Ancef) 1 gm in 50 mls @ 100 mls/hr IVPB Q24H [facility] Last Admin: 05/22/18 05:45 Dose: 100 mls/hr Metoprolol Tartrate (Lopressor) 12.5 mg PO BID [facility] Last Admin: 05/22/18 09:09 Dose: 12.5 mg Oxycodone/Acetaminophen (Percocet 5/325 Mg Tab) 2 tab PO Q6H PRN PRN Reason: Pain, moderate (4-7) Stop: 05/25/18 09:54 Last Admin: 05/22/18 10:26 Dose: 2 tab Pantoprazole Sodium (Protonix Ec Tab) 40 mg PO DAILY [facility] Last Admin: 05/22/18 09:11 Dose: 40 mg Senna/Docusate Sodium (Senokot S 50 Mg-8.6 Mg) 2 tab PO BID [facility] Last Admin: 05/22/18 09:10 Dose: 2 tab Sevelamer Carbonate (Renvela) 2.4 gm PO TIDCC [facility] Last Admin: 05/22/18 13:08 Dose: Not Given - Labs Labs: 05/21/18 13:39 05/21/18 17:33 APTT 38 SECONDS (21-34) H 05/03/18 23:27 Attending/Attestation - Attestation I have personally seen and examined this patient.: Yes I have fully participated in the care of the patient.: Yes I have reviewed all pertinent clinical information, including history, physical exam and plan: Yes Notes (Text): 05/22/18 16:00 lengthy discussion with patient regarding his inability to follow thru for his appoitments with Urology and CT Sx As per Dr.Mutahar Fetnon ( urologist at [place] ) he recommended to consult and schedule nephrectomy at [facility] and he will come to assist with surgery once nephrectomy is completed patient will be transferred for AVR to the medical center
--- NOTE | 2018-05-22 22:47 | CP.PCM.PN ---
Subjective - Subjective Subjective: dictated Objective - Vital Signs/Intake and Output Vital Signs (last 24 hours): Temp Pulse Resp BP Pulse Ox 97.9 F 98 H 20 98/41 L 97 05/22/18 15:55 05/22/18 15:55 05/22/18 15:55 05/22/18 22:22 05/22/18 15:55 - Medications Medications: Current Medications Alprazolam (Xanax) 0.5 mg PO Q6 PRN PRN Reason: Anxiety Last Admin: 05/20/18 23:57 Dose: 0.5 mg Aspirin (Aspirin Chewable) 81 mg PO DAILY [facility] Last Admin: 05/22/18 09:09 Dose: 81 mg Calcium Acetate (Phoslo) 1,334 mg PO TIDCC [facility] Last Admin: 05/22/18 17:57 Dose: Not Given Diphenhydramine HCl (Benadryl) 25 mg IVP Q12 PRN PRN Reason: Itching / Pruritus Last Admin: 05/20/18 23:57 Dose: 25 mg Epoetin Zain (Procrit) 10,000 unit IV MWF [facility] Last Admin: 05/21/18 10:29 Dose: 10,000 unit Ferrous Sulfate (Feosol) 325 mg PO BID [facility] Last Admin: 05/22/18 17:56 Dose: Not Given Furosemide (Lasix) 80 mg PO BID [facility] Last Admin: 05/22/18 22:22 Dose: Not Given Cefazolin Sodium (Ancef) 1 gm in 50 mls @ 100 mls/hr IVPB Q24H [facility] Last Admin: 05/22/18 05:45 Dose: 100 mls/hr Metoprolol Tartrate (Lopressor) 12.5 mg PO BID [facility] Last Admin: 05/22/18 17:54 Dose: Not Given Oxycodone/Acetaminophen (Percocet 5/325 Mg Tab) 2 tab PO Q6H PRN PRN Reason: Pain, moderate (4-7) Stop: 05/25/18 09:54 Last Admin: 05/22/18 10:26 Dose: 2 tab Pantoprazole Sodium (Protonix Ec Tab) 40 mg PO DAILY [facility] Last Admin: 05/22/18 09:11 Dose: 40 mg Senna/Docusate Sodium (Senokot S 50 Mg-8.6 Mg) 2 tab PO BID [facility] Last Admin: 05/22/18 17:57 Dose: Not Given Sevelamer Carbonate (Renvela) 2.4 gm PO TIDCC [facility] Last Admin: 05/22/18 17:57 Dose: Not Given - Labs Labs: 05/21/18 13:39 05/21/18 17:33 APTT 38 SECONDS (21-34) H 05/03/18 23:27
[2018-05-22] MEDS: DiphenhydrAMINE 50 mg/ml Inj IVP PRN (23:52)
--- NOTE | 2018-05-23 01:45 | PN ---
DATE: 05/22/2018 SUBJECTIVE: The patient, Zac, is having an episode of nausea and mild vomiting. The patient is afebrile. I had discussion with Infectious Disease. The patient is cleared for nephrectomy and the patient will need to go as an outpatient to urology clinic with Dr. Wayne as outpatient for nephrectomy. The patient is afebrile. No shortness of breath. No chest pain. PHYSICAL EXAMINATION: VITAL SIGNS: Blood pressure 98/45, pulse 98, respiratory rate 20, temperature 97.9. LUNGS: Clear. CVS: S1, S2 regular. ABDOMEN: Soft. ASSESSMENT: 1. Chronic kidney disease, on hemodialysis. 2. Pyonephrosis, rule out pyelonephritis. 3. Chronic kidney disease. 4. Hepatitis C. PLAN: Continue antibiotics. The patient is for possible discharge with outpatient followup with urology clinic in [facility]. Mikel Marc MD
[2018-05-23] MEDS: ceFAZolin 1 gm FROZEN Premix 1 GM/50 ML ML IVPB SCH (06:00)
[2018-05-23 06:32] LABS: BASO # 0.1 K/uL (0.0-0.2); BASO % 1.2 % (0.0-2.0); EOS # 0.1 K/uL (0.0-0.7); EOS % 2.1 % (0.0-4.0); HEMOGLOBIN 10.4 g/dL (12.0-18.0); LYMPH # 1.1 K/uL (1.0-4.3); LYMPH % 20.5 % (20.0-40.0); MEAN CELL VOLUME 97.4 fL (80.0-94.0); MEAN CORPUSCULAR HEMOGLOBIN 31.4 pg (27.0-31.0); MEAN CORPUSCULAR HGB CONC 32.2 g/dL (33.0-37.0); MONO # 0.2 K/uL (0.0-0.8); MONO % 4.4 % (0.0-10.0); NEUT % 71.8 % (50.0-75.0); NRBC % 0.2 % (0.0-2.0); RBC 3.3 Mil/uL (4.40-5.90); RED CELL DISTRIBUTION WIDTH 18.9 % (11.5-14.5); WHITE BLOOD COUNT 5.6 K/uL (4.8-10.8)
[2018-05-23 07:08] LABS: ALB/GLOB RATIO 1.1 (1.0-2.1); ALBUMIN 3.4 g/dL (3.5-5.0); CALCIUM 8.7 mg/dl (8.6-10.4)
[2018-05-23] MEDS: Sevelamer Carb 2.4 gm/Packet PO SCH ×3 (08:30→18:17)
[2018-05-23] MEDS: Pantoprazole 40 mg EC Tab PO SCH (10:47)
[2018-05-23] MEDS: Docusate-Senna 50 mg-8.6 mg Tab PO SCH ×2 (10:48→18:18)
--- NOTE | 2018-05-23 11:31 | CP.PCM.PN ---
<Iban Barba - Last Filed: 05/23/18 13:51> Subjective - Date & Time of Evaluation Date of Evaluation: 05/23/18 Time of Evaluation: 11:28 - Subjective Subjective: Iban Barba DO, PGY-1 Cardiology Progress Note for Dr. Schultz Patient was seen and examined at bedside this AM. He is still having worsening b/l LE edema. He denies fever/chills, CP, SOB, dizziness, nausea/vomiting. Objective - Vital Signs/Intake and Output Vital Signs (last 24 hours): Temp Pulse Resp BP Pulse Ox 98.3 F 75 20 107/47 L 90 L 05/23/18 08:00 05/23/18 08:00 05/23/18 08:00 05/23/18 08:00 05/23/18 08:00 - Medications Medications: Current Medications Alprazolam (Xanax) 0.5 mg PO Q6 PRN PRN Reason: Anxiety Last Admin: 05/22/18 23:52 Dose: 0.5 mg Aspirin (Aspirin Chewable) 81 mg PO DAILY [facility] Last Admin: 05/23/18 10:47 Dose: 81 mg Calcium Acetate (Phoslo) 1,334 mg PO TIDCC [facility] Last Admin: 05/23/18 08:30 Dose: 1,334 mg Diphenhydramine HCl (Benadryl) 25 mg IVP Q12 PRN PRN Reason: Itching / Pruritus Last Admin: 05/22/18 23:52 Dose: 25 mg Epoetin Zain (Procrit) 10,000 unit IV MWF [facility] Last Admin: 05/21/18 10:29 Dose: 10,000 unit Ferrous Sulfate (Feosol) 325 mg PO BID [facility] Last Admin: 05/23/18 10:48 Dose: Not Given Furosemide (Lasix) 80 mg PO BID [facility] Last Admin: 05/23/18 10:48 Dose: Not Given Cefazolin Sodium (Ancef) 1 gm in 50 mls @ 100 mls/hr IVPB Q24H [facility] Last Admin: 05/23/18 06:00 Dose: 100 mls/hr Metoprolol Tartrate (Lopressor) 12.5 mg PO BID [facility] Last Admin: 05/23/18 10:48 Dose: Not Given Oxycodone/Acetaminophen (Percocet 5/325 Mg Tab) 2 tab PO Q6H PRN PRN Reason: Pain, moderate (4-7) Stop: 05/25/18 09:54 Last Admin: 05/22/18 10:26 Dose: 2 tab Pantoprazole Sodium (Protonix Ec Tab) 40 mg PO DAILY [facility] Last Admin: 05/23/18 10:47 Dose: 40 mg Senna/Docusate Sodium (Senokot S 50 Mg-8.6 Mg) 2 tab PO BID [facility] Last Admin: 05/23/18 10:48 Dose: Not Given Sevelamer Carbonate (Renvela) 2.4 gm PO TIDCC [facility] Last Admin: 05/23/18 08:30 Dose: 2.4 gm - Labs Labs: 05/23/18 06:25 05/23/18 06:25 APTT 38 SECONDS (21-34) H 05/03/18 23:27 - Constitutional Appears: Non-toxic, No Acute Distress - Head Exam Head Exam: ATRAUMATIC, NORMOCEPHALIC - Eye Exam Eye Exam: EOMI, Normal appearance, PERRL - ENT Exam ENT Exam: Mucous Membranes Moist - Neck Exam Neck Exam: Full ROM, Normal Inspection - Respiratory Exam Respiratory Exam: Clear to Ausculation Bilateral, NORMAL BREATHING PATTERN. absent: Rales, Rhonchi, Wheezes - Cardiovascular Exam Cardiovascular Exam: Diastolic murmur (grade 3/6 holo-diastolic in aortic region unchanged from prior exams), +S1, +S2. absent: Gallop, Rubs - GI/Abdominal Exam GI & Abdominal Exam: Soft. absent: Guarding, Tenderness - Extremities Exam Extremities Exam: Pedal Edema (2+ pitting edema LE b/l). absent: Calf Tenderness - Back Exam Back Exam: Full ROM, NORMAL INSPECTION - Neurological Exam Neurological Exam: Alert, Awake, Oriented x3 - Psychiatric Exam Psychiatric exam: Normal Affect, Normal Mood - Skin Skin Exam: Dry, Intact, Warm Assessment and Plan - Assessment and Plan (Free Text) Assessment: 48 yo M with PMH of ESRD (M,W,F hemodialysis), severe aortic valve insufficiency, prior episode of endocarditis, HTN, anxiety, anemia, seizure disorder, hepatitis C, IVDA (last use 2014), PE (previously on Coumadin) prese nted to [facility] ED with L-sided CP. He was subsequently found to have severe aortic regurgitation on echo and mobile mass on aortic valve left cusp c/w vegetation. Plan: 1. Severe aortic regurgitation Worsened LE edema likely 2/2 combination of severe aortic insufficiency, CHF w/pulmonary HTN, and ESRD Patient refused extra dialysis session last week Will consult and speak to Dr. Estella Ferro today regarding plans for nephrectomy at [facility] After nephrectomy is complete, will plan on transfer to [place] for aortic valve replacement 2. Aortic valve vegetation/endocarditis Continue vanc/ancef throughout surgeries 3. HFpEF with severe pulmonary HTN Continue lopressor 25 mg BID Case and plan reviewed and discussed with my attending Dr. Antoine Barba, DO IM Resident PGY-1 <Naresh Schultz - Last Filed: 05/25/18 07:18> Objective - Vital Signs/Intake and Output Vital Signs (last 24 hours): Temp Pulse Resp BP Pulse Ox 98.5 F 68 18 107/40 L 95 05/25/18 04:00 05/25/18 04:00 05/25/18 04:00 05/25/18 04:00 05/24/18 16:38 - Medications Medications: Current Medications Alprazolam (Xanax) 0.5 mg PO Q6 PRN PRN Reason: Anxiety Last Admin: 05/24/18 23:56 Dose: 0.5 mg Aspirin (Aspirin Chewable) 81 mg PO DAILY [facility] Last Admin: 05/24/18 10:21 Dose: 81 mg Calcium Acetate (Phoslo) 1,334 mg PO TIDCC [facility] Last Admin: 05/24/18 17:41 Dose: 1,334 mg Diphenhydramine HCl (Benadryl) 25 mg PO Q12 PRN PRN Reason: Itching / Pruritus Last Admin: 05/24/18 23:56 Dose: 25 mg Epoetin Zain (Procrit) 10,000 unit IV MWF [facility] Last Admin: 05/23/18 15:59 Dose: 10,000 unit Ferrous Sulfate (Feosol) 325 mg PO BID [facility] Last Admin: 05/24/18 17:41 Dose: 325 mg Furosemide (Lasix) 80 mg PO BID [facility] Last Admin: 05/24/18 17:43 Dose: 80 mg Cefazolin Sodium (Ancef) 1 gm in 50 mls @ 100 mls/hr IVPB Q24H [facility] Last Admin: 05/25/18 05:51 Dose: 100 mls/hr Metoprolol Tartrate (Lopressor) 12.5 mg PO BID [facility] Last Admin: 05/24/18 17:45 Dose: Not Given Oxycodone/Acetaminophen (Percocet 5/325 Mg Tab) 2 tab PO Q6H PRN PRN Reason: Pain, moderate (4-7) Stop: 05/25/18 09:54 Last Admin: 05/23/18 21:57 Dose: 2 tab Pantoprazole Sodium (Protonix Ec Tab) 40 mg PO DAILY [facility] Last Admin: 05/24/18 10:21 Dose: 40 mg Senna/Docusate Sodium (Senokot S 50 Mg-8.6 Mg) 2 tab PO BID [facility] Last Admin: 05/24/18 17:45 Dose: Not Given Sevelamer Carbonate (Renvela) 2.4 gm PO TIDCC [facility] Last Admin: 05/24/18 17:44 Dose: 2.4 gm - Labs Labs: 05/23/18 06:25 05/23/18 06:25 APTT 38 SECONDS (21-34) H 05/03/18 23:27 Attending/Attestation - Attestation I have personally seen and examined this patient.: Yes I have fully participated in the care of the patient.: Yes I have reviewed all pertinent clinical information, including history, physical exam and plan: Yes
--- NOTE | 2018-05-23 12:28 | CP.PCM.PN ---
Subjective - Date & Time of Evaluation Date of Evaluation: 05/23/18 Time of Evaluation: 12:25 - Subjective Subjective: no acute complaints several drinks and pitcher at bedside no dyspnea no fever chronic pain complaints no nausea no vomiting no diarrhea Objective - Vital Signs/Intake and Output Vital Signs (last 24 hours): Temp Pulse Resp BP Pulse Ox 98.3 F 75 20 107/47 L 90 L 05/23/18 08:00 05/23/18 08:00 05/23/18 08:00 05/23/18 08:00 05/23/18 08:00 - Medications Medications: Current Medications Alprazolam (Xanax) 0.5 mg PO Q6 PRN PRN Reason: Anxiety Last Admin: 05/22/18 23:52 Dose: 0.5 mg Aspirin (Aspirin Chewable) [address] [facility] Last Admin: 05/23/18 10:47 Dose: 81 mg Calcium Acetate (Phoslo) 1,[address] [facility] Last Admin: 05/23/18 08:30 Dose: 1,334 mg Diphenhydramine HCl (Benadryl) 25 mg IVP Q12 PRN PRN Reason: Itching / Pruritus Last Admin: 05/22/18 23:52 Dose: 25 mg Epoetin Zain (Procrit) 10,[address] [facility] Last Admin: 05/21/18 10:29 Dose: 10,000 unit Ferrous Sulfate (Feosol) [address] [facility] Last Admin: 05/23/18 10:48 Dose: Not Given Furosemide (Lasix) [address] [facility] Last Admin: 05/23/18 10:48 Dose: Not Given Cefazolin Sodium (Ancef) 1 gm in 50 mls @ 100 mls/hr IVPB Q24H [facility] Last Admin: 05/23/18 06:00 Dose: 100 mls/hr Metoprolol Tartrate (Lopressor) 12.[address] [facility] Last Admin: 05/23/18 10:48 Dose: Not Given Oxycodone/Acetaminophen (Percocet 5/325 Mg Tab) 2 tab PO Q6H PRN PRN Reason: Pain, moderate (4-7) Stop: 05/25/18 09:54 Last Admin: 05/22/18 10:26 Dose: 2 tab Pantoprazole Sodium (Protonix Ec Tab) [address] [facility] Last Admin: 05/23/18 10:47 Dose: 40 mg Senna/Docusate Sodium (Senokot S 50 Mg-8.6 Mg) [address] [facility] Last Admin: 05/23/18 10:48 Dose: Not Given Sevelamer Carbonate (Renvela) 2.[address] [facility] Last Admin: 05/23/18 08:30 Dose: 2.4 gm - Labs Labs: 05/23/18 06:25 05/23/18 06:25 APTT 38 SECONDS (21-34) H 05/03/18 23:27 - Constitutional Appears: No Acute Distress, Chronically Ill - Head Exam Head Exam: ATRAUMATIC, NORMAL INSPECTION - Eye Exam Eye Exam: EOMI - ENT Exam ENT Exam: Mucous Membranes Moist - Neck Exam Neck Exam: Full ROM. absent: Lymphadenopathy - Respiratory Exam Respiratory Exam: Decreased Breath Sounds. absent: Accessory Muscle Use - Cardiovascular Exam Cardiovascular Exam: REGULAR RHYTHM, Murmur - GI/Abdominal Exam GI & Abdominal Exam: Soft. absent: Guarding, Tenderness - Extremities Exam Extremities Exam: Pedal Edema Assessment and Plan - Assessment and Plan (Free Text) Assessment: Hd today reviewed fluid restriction continue AB for AVR and nephrectomy
[2018-05-23] MEDS: Oxycodone/Acetaminophen 5/325 mg Tab PO PRN ×2 (12:54→21:57)
[2018-05-23] MEDS: Epoetin Alfa 10,000 unit/ml Dialysis IV SCH (15:59)
--- NOTE | 2018-05-23 21:37 | CP.PCM.PN ---
Subjective - Subjective Subjective: dictated Objective - Vital Signs/Intake and Output Vital Signs (last 24 hours): Temp Pulse Resp BP Pulse Ox 97.9 F 77 18 113/50 L 98 05/23/18 18:05 05/23/18 18:05 05/23/18 18:05 05/23/18 18:16 05/23/18 18:05 - Medications Medications: Current Medications Alprazolam (Xanax) 0.5 mg PO Q6 PRN PRN Reason: Anxiety Last Admin: 05/22/18 23:52 Dose: 0.5 mg Aspirin (Aspirin Chewable) 81 mg PO DAILY [facility] Last Admin: 05/23/18 10:47 Dose: 81 mg Calcium Acetate (Phoslo) 1,334 mg PO TIDCC [facility] Last Admin: 05/23/18 18:17 Dose: 1,334 mg Diphenhydramine HCl (Benadryl) 25 mg IVP Q12 PRN PRN Reason: Itching / Pruritus Last Admin: 05/22/18 23:52 Dose: 25 mg Epoetin Zain (Procrit) 10,000 unit IV MWF [facility] Last Admin: 05/23/18 15:59 Dose: 10,000 unit Ferrous Sulfate (Feosol) 325 mg PO BID [facility] Last Admin: 05/23/18 18:16 Dose: 325 mg Furosemide (Lasix) 80 mg PO BID [facility] Last Admin: 05/23/18 18:16 Dose: 80 mg Cefazolin Sodium (Ancef) 1 gm in 50 mls @ 100 mls/hr IVPB Q24H [facility] Last Admin: 05/23/18 06:00 Dose: 100 mls/hr Metoprolol Tartrate (Lopressor) 12.5 mg PO BID [facility] Last Admin: 05/23/18 18:18 Dose: Not Given Oxycodone/Acetaminophen (Percocet 5/325 Mg Tab) 2 tab PO Q6H PRN PRN Reason: Pain, moderate (4-7) Stop: 05/25/18 09:54 Last Admin: 05/23/18 12:54 Dose: 2 tab Pantoprazole Sodium (Protonix Ec Tab) 40 mg PO DAILY [facility] Last Admin: 05/23/18 10:47 Dose: 40 mg Senna/Docusate Sodium (Senokot S 50 Mg-8.6 Mg) 2 tab PO BID [facility] Last Admin: 05/23/18 18:18 Dose: Not Given Sevelamer Carbonate (Renvela) 2.4 gm PO TIDCC [facility] Last Admin: 05/23/18 18:17 Dose: 2.4 gm - Labs Labs: 05/23/18 06:25 05/23/18 06:25 APTT 38 SECONDS (21-34) H 05/03/18 23:27
--- NOTE | 2018-05-23 23:39 | CP.PCM.PN ---
Subjective - Date & Time of Evaluation Date of Evaluation: 05/23/18 Time of Evaluation: 23:39 - Subjective Subjective: AFEBRILE, NO ACUTE EVENTS OVERNIGHT. B/L LE EDEMA PRESENT. C/O CHRONIC ABDOMINAL PAIN TOLERATING iv ANTIBIOTICS FOR STREPTOCOCCUS MITIS BACTEREMIA/AV-ENDOCARDITIS ON IV CEFAZOLIN AND IV VANCOMYCIN POST HD MWF CONTINUE RX FOR NOW TILL SURGERY. REPEAT BLOOD CULTURES 05/09/18 2:2 SETS -VE X TO DATE REPEAT BLOOD CULTURES 05/03/18 -VE GROWTH X 5DAYS. CASE DISCUSSED WITH PMD DR KARLY INIGUEZ. BLOOD CULTURES -VE REPEATEDLY. NEEDS CARDIAC CLEARANCE FOR RT NEPHRECTOMY. OK FROM INFECTIOUS POINT ON ANTIBIOTICS WITH ACCEPTABLE RISK IF MEDICALLY OPTIMIZED AWAITING TRANSFER TO [place] FOR LEAKY AV/AND RT NEPHRECTOMY Objective - Vital Signs/Intake and Output Vital Signs (last 24 hours): Temp Pulse Resp BP Pulse Ox 97.9 F 77 18 113/50 L 98 05/23/18 18:05 05/23/18 18:05 05/23/18 18:05 05/23/18 18:16 05/23/18 18:05 - Medications Medications: Current Medications Alprazolam (Xanax) 0.5 mg PO Q6 PRN PRN Reason: Anxiety Last Admin: 05/22/18 23:52 Dose: 0.5 mg Aspirin (Aspirin Chewable) 81 mg PO DAILY [facility] Last Admin: 05/23/18 10:47 Dose: 81 mg Calcium Acetate (Phoslo) 1,334 mg PO TIDCC [facility] Last Admin: 05/23/18 18:17 Dose: 1,334 mg Diphenhydramine HCl (Benadryl) 25 mg IVP Q12 PRN PRN Reason: Itching / Pruritus Last Admin: 05/22/18 23:52 Dose: 25 mg Epoetin Zain (Procrit) 10,000 unit IV MWF [facility] Last Admin: 05/23/18 15:59 Dose: 10,000 unit Ferrous Sulfate (Feosol) 325 mg PO BID [facility] Last Admin: 05/23/18 18:16 Dose: 325 mg Furosemide (Lasix) 80 mg PO BID [facility] Last Admin: 05/23/18 18:16 Dose: 80 mg Cefazolin Sodium (Ancef) 1 gm in 50 mls @ 100 mls/hr IVPB Q24H [facility] Last Admin: 05/23/18 06:00 Dose: 100 mls/hr Metoprolol Tartrate (Lopressor) 12.5 mg PO BID [facility] Last Admin: 05/23/18 18:18 Dose: Not Given Oxycodone/Acetaminophen (Percocet 5/325 Mg Tab) 2 tab PO Q6H PRN PRN Reason: Pain, moderate (4-7) Stop: 05/25/18 09:54 Last Admin: 05/23/18 21:57 Dose: 2 tab Pantoprazole Sodium (Protonix Ec Tab) 40 mg PO DAILY [facility] Last Admin: 05/23/18 10:47 Dose: 40 mg Senna/Docusate Sodium (Senokot S 50 Mg-8.6 Mg) 2 tab PO BID [facility] Last Admin: 05/23/18 18:18 Dose: Not Given Sevelamer Carbonate (Renvela) 2.4 gm PO TIDCC [facility] Last Admin: 05/23/18 18:17 Dose: 2.4 gm - Labs Labs: 05/23/18 06:25 05/23/18 06:25 APTT 38 SECONDS (21-34) H 05/03/18 23:27 - Constitutional Appears: No Acute Distress - Head Exam Head Exam: NORMAL INSPECTION - Eye Exam Eye Exam: EOMI, PERRL - ENT Exam ENT Exam: Normal Oropharynx - Neck Exam Neck Exam: Normal Inspection - Respiratory Exam Respiratory Exam: Clear to Ausculation Bilateral, NORMAL BREATHING PATTERN - Cardiovascular Exam Cardiovascular Exam: REGULAR RHYTHM, +S1, +S2, Murmur - GI/Abdominal Exam GI & Abdominal Exam: Soft, Normal Bowel Sounds. absent: Tenderness - Extremities Exam Extremities Exam: Full ROM, Normal Capillary Refill, Pedal Edema (2+). absent: Calf Tenderness - Neurological Exam Neurological Exam: Alert, Awake, CN II-XII Intact, Normal Gait, Oriented x3, Reflexes Normal - Psychiatric Exam Psychiatric exam: Normal Mood - Skin Skin Exam: Normal Color, Warm Assessment and Plan (1) Bacteremia Status: Acute (2) SBE (subacute bacterial endocarditis) Status: Acute (3) Xanthogranulomatous pyelonephritis Status: Acute (4) Hypertensive CKD, ESRD on dialysis Status: Acute - Assessment and Plan (Free Text) Plan: ON iv CEFAZOLIN 1 G EVERY 24HRLY HOURLY 05/06/18. X 6WEEKS PER DISCUSSION WITH PHARMACY ACCORDING TO RENAL FUNCTION. ON IV VANCOMYCIN 500MG IVPB POST EACH HD MWF X TOTAL OF 6WEEKS. F/U CBC,LFTS IN AM ON HD. VANCO TROUGH ON HD IN AM . PT AWAITING TRANSFER TO [facility] FOR AVR FOR LEAKY VALVE AND RT NEPHRECTOMY. PER CARDIOLOGY DR DILLARD.
[2018-05-24] MEDS: DiphenhydrAMINE 50 mg/ml Inj IVP PRN (00:29)
--- NOTE | 2018-05-24 02:36 | PN ---
DATE: 05/23/2018 SUBJECTIVE: The patient is feeling better. He has decreased abdominal pain, decreased nausea and vomiting, decreased flank pain. No fever. PHYSICAL EXAMINATION: VITAL SIGNS: Blood pressure 113/50, pulse 77, respiratory rate 18, temperature 97.9. LUNGS: Clear. ABDOMEN: Soft. Nontender. Bowel sounds are positive. CENTRAL NERVOUS SYSTEM: Normal. ASSESSMENT: 1. Abdominal pain, history of surgery. 2. Chronic kidney disease, on hemodialysis. 3. Pyelonephritis versus pyelonephrosis. 4. Hepatitis C. PLAN: Antibiotics. Monitor the patient. Mikel Marc MD cc: <>
[2018-05-24] MEDS: ceFAZolin 1 gm FROZEN Premix 1 GM/50 ML ML IVPB SCH (06:29)
[2018-05-24] MEDS: Sevelamer Carb 2.4 gm/Packet PO SCH ×3 (08:47→17:44)
[2018-05-24] MEDS: Docusate-Senna 50 mg-8.6 mg Tab PO SCH ×2 (10:20→17:45)
[2018-05-24] MEDS: Pantoprazole 40 mg EC Tab PO SCH (10:21)
--- NOTE | 2018-05-24 10:38 | CP.PCM.PN ---
Subjective - Date & Time of Evaluation Date of Evaluation: 05/24/18 Time of Evaluation: 10:37 - Subjective Subjective: afebrile no events pt denies any n/v/d/sob/cp/palpitations +leg swelling c/o dizziness this am while standing Objective - Vital Signs/Intake and Output Vital Signs (last 24 hours): Temp Pulse Resp BP Pulse Ox 98 F 73 20 105/52 L 97 05/24/18 10:20 05/24/18 10:20 05/24/18 10:20 05/24/18 10:20 05/24/18 10:20 - Medications Medications: Current Medications Alprazolam (Xanax) 0.5 mg PO Q6 PRN PRN Reason: Anxiety Last Admin: 05/24/18 00:29 Dose: 0.5 mg Aspirin (Aspirin Chewable) 81 mg PO DAILY [facility] Last Admin: 05/24/18 10:21 Dose: 81 mg Calcium Acetate (Phoslo) 1,334 mg PO TIDCC [facility] Last Admin: 05/24/18 08:47 Dose: 1,334 mg Diphenhydramine HCl (Benadryl) 25 mg IVP Q12 PRN PRN Reason: Itching / Pruritus Last Admin: 05/24/18 00:29 Dose: 25 mg Epoetin Zain (Procrit) 10,000 unit IV MWF [facility] Last Admin: 05/23/18 15:59 Dose: 10,000 unit Ferrous Sulfate (Feosol) 325 mg PO BID [facility] Last Admin: 05/24/18 10:21 Dose: 325 mg Furosemide (Lasix) 80 mg PO BID [facility] Last Admin: 05/23/18 18:16 Dose: 80 mg Cefazolin Sodium (Ancef) 1 gm in 50 mls @ 100 mls/hr IVPB Q24H [facility] Last Admin: 05/24/18 06:29 Dose: 100 mls/hr Metoprolol Tartrate (Lopressor) 12.5 mg PO BID [facility] Last Admin: 05/23/18 18:18 Dose: Not Given Oxycodone/Acetaminophen (Percocet 5/325 Mg Tab) 2 tab PO Q6H PRN PRN Reason: Pain, moderate (4-7) Stop: 05/25/18 09:54 Last Admin: 05/23/18 21:57 Dose: 2 tab Pantoprazole Sodium (Protonix Ec Tab) 40 mg PO DAILY [facility] Last Admin: 05/24/18 10:21 Dose: 40 mg Senna/Docusate Sodium (Senokot S 50 Mg-8.6 Mg) 2 tab PO BID [facility] Last Admin: 05/23/18 18:18 Dose: Not Given Sevelamer Carbonate (Renvela) 2.4 gm PO TIDCC [facility] Last Admin: 05/24/18 08:47 Dose: 2.4 gm - Labs Labs: 05/23/18 06:25 05/23/18 06:25 APTT 38 SECONDS (21-34) H 05/03/18 23:27 - Constitutional Appears: No Acute Distress, Chronically Ill - Head Exam Head Exam: NORMAL INSPECTION, NORMOCEPHALIC - Eye Exam Eye Exam: Normal appearance, PERRL - ENT Exam ENT Exam: Mucous Membranes Moist, Normal Exam - Neck Exam Neck Exam: Full ROM, Normal Inspection - Respiratory Exam Respiratory Exam: Clear to Ausculation Bilateral, NORMAL BREATHING PATTERN - Cardiovascular Exam Cardiovascular Exam: REGULAR RHYTHM, RRR - GI/Abdominal Exam GI & Abdominal Exam: Distended, Soft - Extremities Exam Extremities Exam: Normal Inspection, Pedal Edema - Neurological Exam Neurological Exam: Alert, Awake, Oriented x3 - Psychiatric Exam Psychiatric exam: Normal Affect, Normal Mood - Skin Skin Exam: Dry, Intact Assessment and Plan (1) Bacteremia Status: Acute (2) ESRD (end stage renal disease) Status: Acute (3) SBE (subacute bacterial endocarditis) Status: Acute (4) Xanthogranulomatous pyelonephritis Status: Acute (5) Atrial fibrillation Status: Acute - Assessment and Plan (Free Text) Assessment: esrd on hd endocarditis / av vegetation chronic pyelonephritis anemia chf, nl EF, pulm htn plan: maintain hd await surgical intervention antibiotics fluid restriction
--- NOTE | 2018-05-24 21:52 | CP.PCM.PN ---
Subjective - Subjective Subjective: dictated Objective - Vital Signs/Intake and Output Vital Signs (last 24 hours): Temp Pulse Resp BP Pulse Ox 97.5 F L 66 20 109/58 L 95 05/24/18 16:38 05/24/18 16:38 05/24/18 16:38 05/24/18 17:43 05/24/18 16:38 - Medications Medications: Current Medications Alprazolam (Xanax) 0.5 mg PO Q6 PRN PRN Reason: Anxiety Last Admin: 05/24/18 00:29 Dose: 0.5 mg Aspirin (Aspirin Chewable) 81 mg PO DAILY [facility] Last Admin: 05/24/18 10:21 Dose: 81 mg Calcium Acetate (Phoslo) 1,334 mg PO TIDCC [facility] Last Admin: 05/24/18 17:41 Dose: 1,334 mg Diphenhydramine HCl (Benadryl) 25 mg PO Q12 PRN PRN Reason: Itching / Pruritus Epoetin Zain (Procrit) 10,000 unit IV MWF [facility] Last Admin: 05/23/18 15:59 Dose: 10,000 unit Ferrous Sulfate (Feosol) 325 mg PO BID [facility] Last Admin: 05/24/18 17:41 Dose: 325 mg Furosemide (Lasix) 80 mg PO BID [facility] Last Admin: 05/24/18 17:43 Dose: 80 mg Cefazolin Sodium (Ancef) 1 gm in 50 mls @ 100 mls/hr IVPB Q24H [facility] Last Admin: 05/24/18 06:29 Dose: 100 mls/hr Metoprolol Tartrate (Lopressor) 12.5 mg PO BID [facility] Last Admin: 05/24/18 17:45 Dose: Not Given Oxycodone/Acetaminophen (Percocet 5/325 Mg Tab) 2 tab PO Q6H PRN PRN Reason: Pain, moderate (4-7) Stop: 05/25/18 09:54 Last Admin: 05/23/18 21:57 Dose: 2 tab Pantoprazole Sodium (Protonix Ec Tab) 40 mg PO DAILY [facility] Last Admin: 05/24/18 10:21 Dose: 40 mg Senna/Docusate Sodium (Senokot S 50 Mg-8.6 Mg) 2 tab PO BID [facility] Last Admin: 05/24/18 17:45 Dose: Not Given Sevelamer Carbonate (Renvela) 2.4 gm PO TIDCC [facility] Last Admin: 05/24/18 17:44 Dose: 2.4 gm - Labs Labs: 05/23/18 06:25 05/23/18 06:25 APTT 38 SECONDS (21-34) H 05/03/18 23:27
[2018-05-25] MEDS: ceFAZolin 1 gm FROZEN Premix 1 GM/50 ML ML IVPB SCH (05:51)
[2018-05-25] MEDS: Sevelamer Carb 2.4 gm/Packet PO SCH ×3 (08:40→18:51)
--- NOTE | 2018-05-25 09:18 | CP.PCM.PN ---
Subjective - Date & Time of Evaluation Date of Evaluation: 05/24/18 Time of Evaluation: 08:00 - Subjective Subjective: Iban Barba DO, PGY-1 Cardiology Progress Note for Dr. Schultz Patient was seen and examined at bedside this AM. He is still having b/l LE edema but it seems to be improving with dialysis sessions. He otherwise offers no new complaints and denies CP, SOB, nausea/vomiting. Objective - Vital Signs/Intake and Output Vital Signs (last 24 hours): Temp Pulse Resp BP Pulse Ox 98.4 F 69 20 117/50 L 93 L 05/25/18 07:42 05/25/18 07:42 05/25/18 07:42 05/25/18 07:42 05/25/18 07:42 - Medications Medications: Current Medications Alprazolam (Xanax) 0.5 mg PO Q6 PRN PRN Reason: Anxiety Last Admin: 05/24/18 23:56 Dose: 0.5 mg Aspirin (Aspirin Chewable) 81 mg PO DAILY [facility] Last Admin: 05/24/18 10:21 Dose: 81 mg Calcium Acetate (Phoslo) 1,334 mg PO TIDCC [facility] Last Admin: 05/25/18 08:40 Dose: 1,334 mg Diphenhydramine HCl (Benadryl) 25 mg PO Q12 PRN PRN Reason: Itching / Pruritus Last Admin: 05/24/18 23:56 Dose: 25 mg Epoetin Zain (Procrit) 10,000 unit IV MWF [facility] Last Admin: 05/23/18 15:59 Dose: 10,000 unit Ferrous Sulfate (Feosol) 325 mg PO BID [facility] Last Admin: 05/24/18 17:41 Dose: 325 mg Furosemide (Lasix) 80 mg PO BID [facility] Last Admin: 05/24/18 17:43 Dose: 80 mg Cefazolin Sodium (Ancef) 1 gm in 50 mls @ 100 mls/hr IVPB Q24H [facility] Last Admin: 05/25/18 05:51 Dose: 100 mls/hr Metoprolol Tartrate (Lopressor) 12.5 mg PO BID [facility] Last Admin: 05/24/18 17:45 Dose: Not Given Oxycodone/Acetaminophen (Percocet 5/325 Mg Tab) 2 tab PO Q6H PRN PRN Reason: Pain, moderate (4-7) Stop: 05/25/18 09:54 Last Admin: 05/23/18 21:57 Dose: 2 tab Pantoprazole Sodium (Protonix Ec Tab) 40 mg PO DAILY [facility] Last Admin: 05/24/18 10:21 Dose: 40 mg Senna/Docusate Sodium (Senokot S 50 Mg-8.6 Mg) 2 tab PO BID [facility] Last Admin: 05/24/18 17:45 Dose: Not Given Sevelamer Carbonate (Renvela) 2.4 gm PO TIDCC [facility] Last Admin: 05/25/18 08:40 Dose: 2.4 gm - Labs Labs: 05/23/18 06:25 05/23/18 06:25 APTT 38 SECONDS (21-34) H 05/03/18 23:27 - Constitutional Appears: Non-toxic, No Acute Distress - Head Exam Head Exam: ATRAUMATIC, NORMOCEPHALIC - Eye Exam Eye Exam: EOMI, Normal appearance, PERRL - ENT Exam ENT Exam: Mucous Membranes Moist - Neck Exam Neck Exam: Full ROM, Normal Inspection - Respiratory Exam Respiratory Exam: Clear to Ausculation Bilateral, NORMAL BREATHING PATTERN. absent: Rales, Rhonchi, Wheezes, Respiratory Distress - Cardiovascular Exam Cardiovascular Exam: Diastolic murmur (unchanged), REGULAR RHYTHM, RRR, +S1, +S2. absent: Rubs - GI/Abdominal Exam GI & Abdominal Exam: Soft, Normal Bowel Sounds. absent: Tenderness - Extremities Exam Extremities Exam: Full ROM, Pedal Edema - Neurological Exam Neurological Exam: Alert, Oriented x3 - Psychiatric Exam Psychiatric exam: Normal Affect, Normal Mood - Skin Skin Exam: Dry, Intact, Warm Assessment and Plan - Assessment and Plan (Free Text) Assessment: 48 yo M with PMH of ESRD (M,W,F hemodialysis), severe aortic valve insufficiency, prior episode of endocarditis, HTN, anxiety, anemia, seizure disorder, hepatitis C, IVDA (last use 2014), PE (previously on Coumadin) presented to [facility] ED with L-sided CP. He was subsequently found to have severe aortic regurgitation on echo and mobile mass on aortic valve left cusp c/w vegetation. Plan: 1. Severe aortic regurgitation Worsened LE edema likely 2/2 combination of severe aortic insufficiency, CHF w/pulmonary HTN, and ESRD Patient refused extra dialysis session last week Plan is for nephrectomy at [facility] initially then transfer to [place] for aortic valve replacement 2. Aortic valve vegetation/endocarditis Continue vanc/ancef pre-operatively 3. HFpEF with severe pulmonary HTN Continue lopressor 25 mg BID Case and plan reviewed and discussed with my attending Dr. Antoine Barba, DO IM Resident PGY-1
[2018-05-25] MEDS: Pantoprazole 40 mg EC Tab PO SCH (09:19)
[2018-05-25] MEDS: Docusate-Senna 50 mg-8.6 mg Tab PO SCH ×2 (09:20→18:51)
--- NOTE | 2018-05-25 09:24 | CP.PCM.PN ---
Subjective - Date & Time of Evaluation Date of Evaluation: 05/25/18 Time of Evaluation: 08:40 - Subjective Subjective: Iban Barba DO, PGY-1 Cardiology Progress Note for Dr. Schultz Patient was seen and examined at bedside this AM. No acute events overnight and he offers no new complaints this AM. Objective - Vital Signs/Intake and Output Vital Signs (last 24 hours): Temp Pulse Resp BP Pulse Ox 98.4 F 69 20 117/50 L 93 L 05/25/18 07:42 05/25/18 07:42 05/25/18 07:42 05/25/18 07:42 05/25/18 07:42 - Medications Medications: Current Medications Alprazolam (Xanax) 0.5 mg PO Q6 PRN PRN Reason: Anxiety Last Admin: 05/24/18 23:56 Dose: 0.5 mg Aspirin (Aspirin Chewable) 81 mg PO DAILY [facility] Last Admin: 05/25/18 09:19 Dose: 81 mg Calcium Acetate (Phoslo) 1,334 mg PO TIDCC [facility] Last Admin: 05/25/18 08:40 Dose: 1,334 mg Diphenhydramine HCl (Benadryl) 25 mg PO Q12 PRN PRN Reason: Itching / Pruritus Last Admin: 05/24/18 23:56 Dose: 25 mg Epoetin Zain (Procrit) 10,000 unit IV MWF [facility] Last Admin: 05/23/18 15:59 Dose: 10,000 unit Ferrous Sulfate (Feosol) 325 mg PO BID [facility] Last Admin: 05/25/18 09:20 Dose: Not Given Furosemide (Lasix) 80 mg PO BID [facility] Last Admin: 05/25/18 09:20 Dose: Not Given Cefazolin Sodium (Ancef) 1 gm in 50 mls @ 100 mls/hr IVPB Q24H [facility] Last Admin: 05/25/18 05:51 Dose: 100 mls/hr Metoprolol Tartrate (Lopressor) 12.5 mg PO BID [facility] Last Admin: 05/25/18 09:19 Dose: Not Given Oxycodone/Acetaminophen (Percocet 5/325 Mg Tab) 2 tab PO Q6H PRN PRN Reason: Pain, moderate (4-7) Stop: 05/25/18 09:54 Last Admin: 05/23/18 21:57 Dose: 2 tab Pantoprazole Sodium (Protonix Ec Tab) 40 mg PO DAILY [facility] Last Admin: 05/25/18 09:19 Dose: 40 mg Senna/Docusate Sodium (Senokot S 50 Mg-8.6 Mg) 2 tab PO BID [facility] Last Admin: 05/25/18 09:20 Dose: Not Given Sevelamer Carbonate (Renvela) 2.4 gm PO TIDCC [facility] Last Admin: 05/25/18 08:40 Dose: 2.4 gm - Labs Labs: 05/23/18 06:25 05/23/18 06:25 APTT 38 SECONDS (21-34) H 05/03/18 23:27 - Constitutional Appears: Non-toxic, No Acute Distress - Head Exam Head Exam: ATRAUMATIC, NORMOCEPHALIC - Eye Exam Eye Exam: EOMI, Normal appearance, PERRL - ENT Exam ENT Exam: Mucous Membranes Moist - Neck Exam Neck Exam: Full ROM, Normal Inspection - Respiratory Exam Respiratory Exam: Clear to Ausculation Bilateral, NORMAL BREATHING PATTERN. absent: Rales, Rhonchi, Wheezes - Cardiovascular Exam Cardiovascular Exam: Diastolic murmur, REGULAR RHYTHM, RRR, +S1, +S2. absent: Gallop, Rubs - GI/Abdominal Exam GI & Abdominal Exam: Soft, Normal Bowel Sounds. absent: Tenderness - Extremities Exam Extremities Exam: Full ROM, Pedal Edema - Back Exam Back Exam: Full ROM, NORMAL INSPECTION - Neurological Exam Neurological Exam: Alert, Awake, Oriented x3 - Psychiatric Exam Psychiatric exam: Normal Affect, Normal Mood - Skin Skin Exam: Dry, Intact, Warm Assessment and Plan - Assessment and Plan (Free Text) Assessment: 48 yo M with PMH of ESRD (M,W,F hemodialysis), severe aortic valve insufficiency, prior episode of endocarditis, HTN, anxiety, anemia, seizure disorder, hepatitis C, IVDA (last use 2014), PE (previously on Coumadin) presented to [facility] ED with L-sided CP. He was subsequently found to have severe aortic regurgitation on echo and mobile mass on aortic valve left cusp c/w vegetation. Plan: 1. Severe aortic regurgitation Worsened LE edema likely 2/2 combination of severe aortic insufficiency, CHF w/pulmonary HTN, and ESRD Patient refused extra dialysis session last week Spoke with Dr. Estella Ferro who will speak to Dr. Fenton at [place] regarding plan for nephrectomy If nephrectomy is pursued, robotic is preferred per Dr. Ferro Will f/u further urology recs 2. Aortic valve vegetation/endocarditis Continue vanc/ancef pre-operatively 3. HFpEF with severe pulmonary HTN Continue lopressor 25 mg BID Case and plan reviewed and discussed with my attending Dr. Antoine Barba, DO IM Resident PGY-1
--- NOTE | 2018-05-25 10:24 | VASCLAB ---
Date of service: 05/24/2018 PROCEDURE: Lower Extremity Venous Duplex Exam. HISTORY: DVT PRIORS: None. TECHNIQUE: Bilateral common femoral, femoral, popliteal and posterior tibial, peroneal and great saphenous veins were evaluated. Flow was assessed with color Doppler, compressibility, assessment of phasic flow and augmentation response. Report prepared by LOPEZ Gordon FINDINGS: RIGHT: 1. Common Femoral Vein: 1.1. Compressibility - Fully compressible: Thrombus - None : Flow - Phasic: Augmentation -Normal: Reflux - None. 2. Femoral Vein: 2.1. Compressibility - Fully compressible: Thrombus - None : Flow - Phasic: Augmentation -Normal: Reflux - None. 3. Popliteal Vein: 3.1. Compressibility - Fully compressible: Thrombus - None : Flow - Phasic: Augmentation -Normal: Reflux - None. 4. Posterior Tibial Vein: 4.1. Compressibility - Fully compressible: Thrombus - None: Flow - Phasic: Augmentation -Normal: Reflux - None. 5. Peroneal Vein: 5.1. Compressibility - Fully compressible: Thrombus - None: Flow - Phasic: Augmentation -Normal: Reflux - None. 6. Great Saphenous Vein: 6.1. Compressibility - Fully compressible: Thrombus - None: Flow - Phasic: Augmentation - Normal: Reflux - None. LEFT: 1. Common Femoral Vein: 1.1. Compressibility - Fully compressible: Thrombus - None: Flow - Phasic: Augmentation -Normal: Reflux - None. 2. Femoral Vein: 2.1. Compressibility - Fully compressible: Thrombus - None: Flow - Phasic: Augmentation -Normal: Reflux - None. 3. Popliteal Vein: 3.1. Compressibility - Fully compressible: Thrombus - None : Flow - Phasic: Augmentation -Normal: Reflux - None. 4. Posterior Tibial Vein: 4.1. Compressibility - Fully compressible: Thrombus - None: Flow - Phasic: Augmentation -Normal: Reflux - None. 5. Peroneal Vein: 5.1. Compressibility - Fully compressible: Thrombus - None: Flow - Phasic: Augmentation -Normal: Reflux - None. 6. Great Saphenous Vein: 6.1. Compressibility - Fully compressible: Thrombus - None: Flow - Phasic: Augmentation - Normal: Reflux - None. OTHER FINDINGS: None. IMPRESSION: No evidence of deep or superficial vein thrombosis of bilateral lower extremities. Pulsatile venous flow noted bilaterally.
--- NOTE | 2018-05-25 14:21 | CP.PCM.PN ---
Subjective - Date & Time of Evaluation Date of Evaluation: 05/25/18 Time of Evaluation: 14:19 - Subjective Subjective: seen and examined hd today estimated uf 4L no n/v/d/cp/f/c/dizziness/cough leg swelling Objective - Vital Signs/Intake and Output Vital Signs (last 24 hours): Temp Pulse Resp BP Pulse Ox 98.4 F 69 20 117/50 L 93 L 05/25/18 07:42 05/25/18 07:42 05/25/18 07:42 05/25/18 07:42 05/25/18 07:42 - Medications Medications: Current Medications Alprazolam (Xanax) 0.5 mg PO Q6 PRN PRN Reason: Anxiety Last Admin: 05/24/18 23:56 Dose: 0.5 mg Aspirin (Aspirin Chewable) 81 mg PO DAILY [facility] Last Admin: 05/25/18 09:19 Dose: 81 mg Calcium Acetate (Phoslo) 1,334 mg PO TIDCC [facility] Last Admin: 05/25/18 12:41 Dose: 1,334 mg Diphenhydramine HCl (Benadryl) 25 mg PO Q12 PRN PRN Reason: Itching / Pruritus Last Admin: 05/24/18 23:56 Dose: 25 mg Epoetin Zain (Procrit) 10,000 unit IV MWF [facility] Last Admin: 05/23/18 15:59 Dose: 10,000 unit Ferrous Sulfate (Feosol) 325 mg PO BID [facility] Last Admin: 05/25/18 09:20 Dose: Not Given Furosemide (Lasix) 80 mg PO BID [facility] Last Admin: 05/25/18 09:20 Dose: Not Given Cefazolin Sodium (Ancef) 1 gm in 50 mls @ 100 mls/hr IVPB Q24H [facility] Last Admin: 05/25/18 05:51 Dose: 100 mls/hr Metoprolol Tartrate (Lopressor) 12.5 mg PO BID [facility] Last Admin: 05/25/18 09:19 Dose: Not Given Pantoprazole Sodium (Protonix Ec Tab) 40 mg PO DAILY [facility] Last Admin: 05/25/18 09:19 Dose: 40 mg Senna/Docusate Sodium (Senokot S 50 Mg-8.6 Mg) 2 tab PO BID [facility] Last Admin: 05/25/18 09:20 Dose: Not Given Sevelamer Carbonate (Renvela) 2.4 gm PO T[facility]CC [facility] Last Admin: 05/25/18 12:41 Dose: 2.4 gm - Labs Labs: 05/23/18 06:25 05/23/18 06:25 APTT 38 SECONDS (21-34) H 05/03/18 23:27 - Constitutional Appears: No Acute Distress, Chronically Ill - Head Exam Head Exam: NORMAL INSPECTION, NORMOCEPHALIC - Eye Exam Eye Exam: Normal appearance, PERRL - ENT Exam ENT Exam: Mucous Membranes Moist, Normal Exam - Neck Exam Neck Exam: Full ROM, Normal Inspection - Respiratory Exam Respiratory Exam: Decreased Breath Sounds (bases), Clear to Ausculation Bilateral, NORMAL BREATHING PATTERN - Cardiovascular Exam Cardiovascular Exam: REGULAR RHYTHM, RRR - GI/Abdominal Exam GI & Abdominal Exam: Distended, Soft - Extremities Exam Extremities Exam: Normal Inspection, Pedal Edema - Back Exam Back Exam: NORMAL INSPECTION - Neurological Exam Neurological Exam: Alert, Awake, Oriented x3 - Psychiatric Exam Psychiatric exam: Normal Affect, Normal Mood - Skin Skin Exam: Intact, Warm Assessment and Plan (1) Bacteremia Status: Acute (2) ESRD (end stage renal disease) Status: Acute (3) SBE (subacute bacterial endocarditis) Status: Acute (4) Xanthogranulomatous pyelonephritis Status: Acute (5) Atrial fibrillation Status: Acute - Assessment and Plan (Free Text) Assessment: esrd on hd endocarditis / av vegetation chronic pyelonephritis anemia chf, nl EF, pulm htn plan: maintain hd, declines extra dialysis await surgical intervention antibiotics fluid restriction
--- NOTE | 2018-05-25 15:26 | PCM.URO ---
Urology Progress Note - Subjective Abdominal Pain: Yes (full note to be dictted ) Flank Pain: Yes (if nephrectomy suggest robotic) - Objective Vital Signs: Vital Signs - 24 hr 05/24/18 05/24/18 05/25/18 16:38 17:43 04:00 Temperature 97.5 F L 98.5 F Pulse Rate 66 68 Pulse Rate [ Right Brachial] Respiratory 20 18 Rate Blood Pressure 102/58 L 109/58 L 107/40 L Blood Pressure [Right Arm] O2 Sat by Pulse 95 Oximetry 05/25/18 05/25/18 05/25/18 07:42 13:40 13:55 Temperature 98.4 F 97.9 F Pulse Rate 69 68 Pulse Rate [ 74 Right Brachial] Respiratory 20 20 Rate Blood Pressure 117/50 L 97/42 L Blood Pressure 97/42 L 105/44 L [Right Arm] O2 Sat by Pulse 93 L 97 Oximetry 05/25/18 05/25/18 05/25/18 14:10 14:25 14:40 Temperature Pulse Rate Pulse Rate [ Right Brachial] Respiratory Rate Blood Pressure Blood Pressure 99/39 L 91/36 L 92/42 L [Right Arm] O2 Sat by Pulse Oximetry 05/25/18 15:10 Temperature Pulse Rate Pulse Rate [ Right Brachial] Respiratory Rate Blood Pressure Blood Pressure 91/40 L [Right Arm] O2 Sat by Pulse Oximetry
[2018-05-25] MEDS: Epoetin Alfa 10,000 unit/ml Dialysis IV SCH (16:27)
--- NOTE | 2018-05-25 23:50 | CP.PCM.PN ---
Subjective - Subjective Subjective: dictated Objective - Vital Signs/Intake and Output Vital Signs (last 24 hours): Temp Pulse Resp BP Pulse Ox 98.9 F 73 18 123/53 L 99 05/25/18 21:06 05/25/18 21:06 05/25/18 21:06 05/25/18 21:06 05/25/18 21:06 - Medications Medications: Current Medications Alprazolam (Xanax) 0.5 mg PO Q6 PRN PRN Reason: Anxiety Last Admin: 05/24/18 23:56 Dose: 0.5 mg Aspirin (Aspirin Chewable) 81 mg PO DAILY [facility] Last Admin: 05/25/18 09:19 Dose: 81 mg Calcium Acetate (Phoslo) 1,334 mg PO TIDCC [facility] Last Admin: 05/25/18 18:51 Dose: 1,334 mg Diphenhydramine HCl (Benadryl) 25 mg PO Q12 PRN PRN Reason: Itching / Pruritus Last Admin: 05/24/18 23:56 Dose: 25 mg Epoetin Zain (Procrit) 10,000 unit IV MWF [facility] Last Admin: 05/25/18 16:27 Dose: 10,000 unit Ferrous Sulfate (Feosol) 325 mg PO BID [facility] Last Admin: 05/25/18 18:51 Dose: 325 mg Furosemide (Lasix) 80 mg PO BID [facility] Last Admin: 05/25/18 18:50 Dose: 80 mg Cefazolin Sodium (Ancef) 1 gm in 50 mls @ 100 mls/hr IVPB Q24H [facility] Last Admin: 05/25/18 05:51 Dose: 100 mls/hr Metoprolol Tartrate (Lopressor) 12.5 mg PO BID [facility] Last Admin: 05/25/18 18:52 Dose: Not Given Pantoprazole Sodium (Protonix Ec Tab) 40 mg PO DAILY [facility] Last Admin: 05/25/18 09:19 Dose: 40 mg Senna/Docusate Sodium (Senokot S 50 Mg-8.6 Mg) 2 tab PO BID [facility] Last Admin: 05/25/18 18:51 Dose: Not Given Sevelamer Carbonate (Renvela) 2.4 gm PO TIDCC [facility] Last Admin: 05/25/18 18:51 Dose: 2.4 gm - Labs Labs: 05/23/18 06:25 05/23/18 06:25 APTT 38 SECONDS (21-34) H 05/03/18 23:27
[2018-05-26] MEDS ORDERED: Aluminum Hydroxide/Magnesium Hydroxide Susp (30 mL) PO ONE (00:12)
--- NOTE | 2018-05-26 02:24 | PN ---
DATE: 05/25/2018 SUBJECTIVE: The patient is feeling anxious. He has occasional abdominal pain, generalized weakness, nausea, no vomiting. PHYSICAL EXAMINATION: VITAL SIGNS: Blood pressure is 109/58, pulse 66, respiratory rate 20, and temperature 97.5. LUNGS: Clear. CARDIOVASCULAR SYSTEM: S1 and S2 are regular. ABDOMEN: Soft. ASSESSMENT: 1. Nephrolithiasis with pyonephrosis. 2. Chronic kidney disease, on hemodialysis. 3. Anxiety and depression. PLAN: Continue current medication. The patient is for nephrectomy. Mikel Marc MD
--- NOTE | 2018-05-26 02:28 | PN ---
DATE: 05/25/2018 SUBJECTIVE: The patient is feeling better. He has abdominal pain, nausea. No vomiting. PHYSICAL EXAMINATION: VITAL SIGNS: Blood pressure 117/50, pulse 69, respiratory rate 20, temperature 98.4. LUNGS: Clear. CARDIOVASCULAR SYSTEM: S1 and S2 are regular. ABDOMEN: Soft. ASSESSMENT: 1. Pyelonephritis, nephrolithiasis. 2. Chronic kidney disease, on hemodialysis. 3. Anxiety. PLAN: Psychiatry evaluation. Monitor the patient. Mikel Marc MD
[2018-05-26] MEDS: ceFAZolin 1 gm FROZEN Premix 1 GM/50 ML ML IVPB SCH (06:27)
[2018-05-26] MEDS: Sevelamer Carb 2.4 gm/Packet PO SCH ×3 (08:36→17:02)
--- NOTE | 2018-05-26 09:34 | CP.PCM.PN ---
Subjective - Date & Time of Evaluation Date of Evaluation: 05/26/18 Time of Evaluation: 09:31 - Subjective Subjective: pt seen and examined seen walking in the hallway pain ok no nausea or vomiting had HD yesterday no swelling frustrated that no one is doing anything !) point ROS negative Objective - Vital Signs/Intake and Output Vital Signs (last 24 hours): Temp Pulse Resp BP Pulse Ox 97.8 F 68 20 95/48 L 100 05/26/18 07:00 05/26/18 07:00 05/26/18 07:00 05/26/18 07:00 05/26/18 07:00 - Medications Medications: Current Medications Alprazolam (Xanax) 0.5 mg PO Q6 PRN PRN Reason: Anxiety Last Admin: 05/26/18 00:01 Dose: 0.5 mg Aspirin (Aspirin Chewable) 81 mg PO DAILY [facility] Last Admin: 05/25/18 09:19 Dose: 81 mg Calcium Acetate (Phoslo) 1,334 mg PO TIDCC [facility] Last Admin: 05/26/18 08:36 Dose: 1,334 mg Diphenhydramine HCl (Benadryl) 25 mg PO Q12 PRN PRN Reason: Itching / Pruritus Last Admin: 05/26/18 00:01 Dose: 25 mg Epoetin Zain (Procrit) 10,000 unit IV MWF [facility] Last Admin: 05/25/18 16:27 Dose: 10,000 unit Ferrous Sulfate (Feosol) 325 mg PO BID [facility] Last Admin: 05/25/18 18:51 Dose: 325 mg Furosemide (Lasix) 80 mg PO BID [facility] Last Admin: 05/25/18 18:50 Dose: 80 mg Cefazolin Sodium (Ancef) 1 gm in 50 mls @ 100 mls/hr IVPB Q24H [facility] Last Admin: 05/26/18 06:27 Dose: 100 mls/hr Metoprolol Tartrate (Lopressor) 12.5 mg PO BID [facility] Last Admin: 05/25/18 18:52 Dose: Not Given Pantoprazole Sodium (Protonix Ec Tab) 40 mg PO DAILY [facility] Last Admin: 05/25/18 09:19 Dose: 40 mg Senna/Docusate Sodium (Senokot S 50 Mg-8.6 Mg) 2 tab PO BID [facility] Last Admin: 05/25/18 18:51 Dose: Not Given Sevelamer Carbonate (Renvela) 2.4 gm PO TIDCC [facility] Last Admin: 05/26/18 08:36 Dose: 2.4 gm - Labs Labs: 05/23/18 06:25 05/23/18 06:25 APTT 38 SECONDS (21-34) H 05/03/18 23:27 - Constitutional Appears: Well, Non-toxic - Head Exam Head Exam: ATRAUMATIC, NORMOCEPHALIC - Eye Exam Eye Exam: EOMI, Normal appearance - ENT Exam ENT Exam: Mucous Membranes Moist - Neck Exam Neck Exam: Full ROM - Respiratory Exam Respiratory Exam: Clear to Ausculation Bilateral. absent: Rhonchi, Wheezes - Cardiovascular Exam Cardiovascular Exam: REGULAR RHYTHM, +S1, +S2 - GI/Abdominal Exam GI & Abdominal Exam: Soft. absent: Tenderness - Extremities Exam Extremities Exam: Full ROM. absent: Pedal Edema - Neurological Exam Neurological Exam: Alert, Awake, Oriented x3 - Psychiatric Exam Psychiatric exam: Normal Affect, Normal Mood - Skin Skin Exam: Normal Color, Warm Assessment and Plan (1) Bacteremia Status: Acute (2) ESRD (end stage renal disease) Status: Acute (3) SBE (subacute bacterial endocarditis) Status: Acute (4) Chronic pain Status: Acute (5) Chronic pyelonephritis Status: Acute - Assessment and Plan (Free Text) Plan: maintain HD MWF continue Abx needs nephrectomy seen by urology yesterday next HD monday pain management
[2018-05-26] MEDS: Docusate-Senna 50 mg-8.6 mg Tab PO SCH ×2 (09:36→17:02)
[2018-05-26] MEDS: Pantoprazole 40 mg EC Tab PO SCH (09:36)
[2018-05-26] MEDS: Oxycodone/Acetaminophen 5/325 mg Tab PO PRN (17:00)
--- NOTE | 2018-05-26 19:11 | CP.PCM.PN ---
Subjective - Subjective Subjective: dictated Objective - Vital Signs/Intake and Output Vital Signs (last 24 hours): Temp Pulse Resp BP Pulse Ox 97.9 F 78 18 95/50 L 97 05/26/18 16:00 05/26/18 16:00 05/26/18 16:00 05/26/18 16:00 05/26/18 16:00 - Medications Medications: Current Medications Alprazolam (Xanax) 0.5 mg PO Q6 PRN PRN Reason: Anxiety Last Admin: 05/26/18 00:01 Dose: 0.5 mg Aspirin (Aspirin Chewable) 81 mg PO DAILY [facility] Last Admin: 05/26/18 09:36 Dose: 81 mg Calcium Acetate (Phoslo) 1,334 mg PO TIDCC [facility] Last Admin: 05/26/18 17:02 Dose: Not Given Diphenhydramine HCl (Benadryl) 25 mg PO Q12 PRN PRN Reason: Itching / Pruritus Last Admin: 05/26/18 00:01 Dose: 25 mg Epoetin Zain (Procrit) 10,000 unit IV MWF [facility] Last Admin: 05/25/18 16:27 Dose: 10,000 unit Ferrous Sulfate (Feosol) 325 mg PO BID [facility] Last Admin: 05/26/18 17:02 Dose: Not Given Furosemide (Lasix) 80 mg PO BID [facility] Last Admin: 05/26/18 17:02 Dose: Not Given Cefazolin Sodium (Ancef) 1 gm in 50 mls @ 100 mls/hr IVPB Q24H [facility] Last Admin: 05/26/18 06:27 Dose: 100 mls/hr Metoprolol Tartrate (Lopressor) 12.5 mg PO BID [facility] Last Admin: 05/26/18 17:02 Dose: Not Given Oxycodone/Acetaminophen (Percocet 5/325 Mg Tab) 2 tab PO Q6H PRN PRN Reason: Pain, moderate (4-7) Stop: 05/29/18 09:55 Last Admin: 05/26/18 17:00 Dose: 2 tab Pantoprazole Sodium (Protonix Ec Tab) 40 mg PO DAILY [facility] Last Admin: 05/26/18 09:36 Dose: 40 mg Senna/Docusate Sodium (Senokot S 50 Mg-8.6 Mg) 2 tab PO BID [facility] Last Admin: 05/26/18 17:02 Dose: Not Given Sevelamer Carbonate (Renvela) 2.4 gm PO TIDCC [facility] Last Admin: 05/26/18 17:02 Dose: Not Given - Labs Labs: 05/23/18 06:25 05/23/18 06:25 APTT 38 SECONDS (21-34) H 05/03/18 23:27
[2018-05-27] MEDS: ceFAZolin 1 gm FROZEN Premix 1 GM/50 ML ML IVPB SCH (05:36)
[2018-05-27] MEDS: Sevelamer Carb 2.4 gm/Packet PO SCH ×3 (08:33→17:21)
[2018-05-27 09:05] LABS: ALB/GLOB RATIO 1.1 (1.0-2.1); ALBUMIN 3.6 g/dL (3.5-5.0); CALCIUM 9.2 mg/dl (8.6-10.4)
[2018-05-27 09:06] LABS: BASO % 0.5 % (0.0-2.0); EOS # 0.2 K/uL (0.0-0.7); EOS % 2.8 % (0.0-4.0); HEMOGLOBIN 9.7 g/dL (12.0-18.0); LYMPH # 1.2 K/uL (1.0-4.3); LYMPH % 21.6 % (20.0-40.0); MEAN CORPUSCULAR HEMOGLOBIN 32.7 pg (27.0-31.0); MEAN CORPUSCULAR HGB CONC 32.9 g/dL (33.0-37.0); MEAN PLATELET VOLUME 9.2 fL (7.2-11.7); MONO # 0.4 K/uL (0.0-0.8); MONO % 7.9 % (0.0-10.0); NEUT # 3.7 K/uL (1.8-7.0); NEUT % 67.2 % (50.0-75.0); NRBC % 0.3 % (0.0-2.0); RBC 2.97 Mil/uL (4.40-5.90); RED CELL DISTRIBUTION WIDTH 20.3 % (11.5-14.5); WHITE BLOOD COUNT 5.5 K/uL (4.8-10.8)
[2018-05-27 09:21] LABS: MEAN CELL VOLUME 99.4 fL (80.0-94.0)
[2018-05-27] MEDS: Pantoprazole 40 mg EC Tab PO SCH (10:37)
[2018-05-27] MEDS: Docusate-Senna 50 mg-8.6 mg Tab PO SCH ×2 (10:38→18:25)
--- NOTE | 2018-05-27 13:16 | CP.PCM.PN ---
Subjective - Subjective Subjective: dictated Objective - Vital Signs/Intake and Output Vital Signs (last 24 hours): Temp Pulse Resp BP Pulse Ox 98.0 F 78 20 99/39 L 99 05/27/18 07:00 05/27/18 07:00 05/27/18 07:00 05/27/18 10:38 05/27/18 07:00 - Medications Medications: Current Medications Alprazolam (Xanax) 0.5 mg PO Q6 PRN PRN Reason: Anxiety Last Admin: 05/27/18 08:32 Dose: 0.5 mg Aspirin (Aspirin Chewable) 81 mg PO DAILY [facility] Last Admin: 05/27/18 10:37 Dose: 81 mg Calcium Acetate (Phoslo) 1,334 mg PO TIDCC [facility] Last Admin: 05/27/18 12:38 Dose: 1,334 mg Diphenhydramine HCl (Benadryl) 25 mg PO Q12 PRN PRN Reason: Itching / Pruritus Last Admin: 05/27/18 12:38 Dose: 25 mg Epoetin Zain (Procrit) 10,000 unit IV MWF [facility] Last Admin: 05/25/18 16:27 Dose: 10,000 unit Ferrous Sulfate (Feosol) 325 mg PO BID [facility] Last Admin: 05/27/18 10:36 Dose: 325 mg Furosemide (Lasix) 80 mg PO BID [facility] Last Admin: 05/27/18 10:38 Dose: Not Given Cefazolin Sodium (Ancef) 1 gm in 50 mls @ 100 mls/hr IVPB Q24H [facility] Last Admin: 05/27/18 05:36 Dose: 100 mls/hr Metoprolol Tartrate (Lopressor) 12.5 mg PO BID [facility] Last Admin: 05/27/18 10:38 Dose: Not Given Oxycodone/Acetaminophen (Percocet 5/325 Mg Tab) 2 tab PO Q6H PRN PRN Reason: Pain, moderate (4-7) Stop: 05/29/18 09:55 Last Admin: 05/26/18 17:00 Dose: 2 tab Pantoprazole Sodium (Protonix Ec Tab) 40 mg PO DAILY [facility] Last Admin: 05/27/18 10:37 Dose: 40 mg Senna/Docusate Sodium (Senokot S 50 Mg-8.6 Mg) 2 tab PO BID [facility] Last Admin: 05/27/18 10:38 Dose: Not Given Sevelamer Carbonate (Renvela) 2.4 gm PO TIDCC [facility] Last Admin: 05/27/18 12:38 Dose: 2.4 gm - Labs Labs: 05/27/18 08:33 05/27/18 08:33 APTT 38 SECONDS (21-34) H 05/03/18 23:27
[2018-05-27] MEDS: Oxycodone/Acetaminophen 5/325 mg Tab PO PRN (17:23)
--- NOTE | 2018-05-28 02:46 | PN ---
DATE: 05/27/2019 SUBJECTIVE: The patient has been seen by Urology ____ for potentially nephrectomy. He is afebrile. He has abdominal pain, flank pain. He is on hemodialysis. PHYSICAL EXAMINATION: VITAL SIGNS: Blood pressure 101/51, pulse 51, respiratory rate 20, and temperature 99.7. LUNGS: Clear. CVS: S1 and S2, regular. ABDOMEN: Soft. ASSESSMENT: 1. Pyelonephrosis. 2. End-stage renal disease, on hemodialysis with renal calculi. 3. End-stage renal disease, on hemodialysis. PLAN: Continue to monitor the patient. Mikel Marc MD
[2018-05-28] MEDS: ceFAZolin 1 gm FROZEN Premix 1 GM/50 ML ML IVPB SCH (05:56)
[2018-05-28] MEDS: Oxycodone/Acetaminophen 5/325 mg Tab PO PRN (06:00)
[2018-05-28] MEDS: Sevelamer Carb 2.4 gm/Packet PO SCH ×3 (08:46→17:58)
[2018-05-28] MEDS: Pantoprazole 40 mg EC Tab PO SCH (10:47)
[2018-05-28] MEDS: Docusate-Senna 50 mg-8.6 mg Tab PO SCH ×2 (10:48→17:52)
--- NOTE | 2018-05-28 13:07 | CP.PCM.PN ---
Subjective - Date & Time of Evaluation Date of Evaluation: 05/28/18 Time of Evaluation: 13:05 - Subjective Subjective: Appears afebrile course awaiting nephrectomy last dialysis session stable Objective - Vital Signs/Intake and Output Vital Signs (last 24 hours): Temp Pulse Resp BP Pulse Ox 97.3 F L 79 20 101/43 L 98 05/28/18 07:59 05/28/18 07:59 05/28/18 07:59 05/28/18 07:59 05/28/18 07:59 - Medications Medications: Current Medications Alprazolam (Xanax) 0.5 mg PO Q6 PRN PRN Reason: Anxiety Last Admin: 05/27/18 21:03 Dose: 0.5 mg Aspirin (Aspirin Chewable) 81 mg PO DAILY [facility] Last Admin: 05/28/18 10:47 Dose: 81 mg Calcium Acetate (Phoslo) 1,334 mg PO TIDCC [facility] Last Admin: 05/28/18 12:55 Dose: 1,334 mg Diphenhydramine HCl (Benadryl) 25 mg PO Q12 PRN PRN Reason: Itching / Pruritus Last Admin: 05/27/18 12:38 Dose: 25 mg Epoetin Zain (Procrit) 10,000 unit IV MWF [facility] Last Admin: 05/25/18 16:27 Dose: 10,000 unit Ferrous Sulfate (Feosol) 325 mg PO BID [facility] Last Admin: 05/28/18 10:47 Dose: Not Given Furosemide (Lasix) 80 mg PO BID [facility] Last Admin: 05/28/18 10:47 Dose: Not Given Cefazolin Sodium (Ancef) 1 gm in 50 mls @ 100 mls/hr IVPB Q24H [facility] Last Admin: 05/28/18 05:56 Dose: 100 mls/hr Metoprolol Tartrate (Lopressor) 12.5 mg PO BID [facility] Last Admin: 05/28/18 10:47 Dose: Not Given Oxycodone/Acetaminophen (Percocet 5/325 Mg Tab) 2 tab PO Q6H PRN PRN Reason: Pain, moderate (4-7) Stop: 05/29/18 09:55 Last Admin: 05/28/18 06:00 Dose: 2 tab Pantoprazole Sodium (Protonix Ec Tab) 40 mg PO DAILY [facility] Last Admin: 05/28/18 10:47 Dose: 40 mg Senna/Docusate Sodium (Senokot S 50 Mg-8.6 Mg) 2 tab PO BID [facility] Last Admin: 05/28/18 10:48 Dose: Not Given Sevelamer Carbonate (Renvela) 2.4 gm PO TIDCC [facility] Last Admin: 05/28/18 12:55 Dose: 2.4 gm - Labs Labs: 05/27/18 08:33 05/27/18 08:33 APTT 38 SECONDS (21-34) H 05/03/18 23:27 - Constitutional Appears: No Acute Distress, Chronically Ill - Head Exam Head Exam: ATRAUMATIC, NORMAL INSPECTION - Eye Exam Eye Exam: EOMI, Normal appearance - Neck Exam Neck Exam: Normal Inspection. absent: Tenderness - Respiratory Exam Respiratory Exam: Clear to Ausculation Bilateral, NORMAL BREATHING PATTERN - Cardiovascular Exam Cardiovascular Exam: REGULAR RHYTHM, +S1 - GI/Abdominal Exam GI & Abdominal Exam: Soft, Tenderness - Extremities Exam Extremities Exam: Normal Inspection. absent: Tenderness - Neurological Exam Neurological Exam: Awake, CN II-XII Intact - Skin Skin Exam: Dry, Warm Assessment and Plan (1) Fluid overload Status: Acute (2) ESRD (end stage renal disease) Status: Acute (3) Hypertensive CKD, ESRD on dialysis Status: Acute (4) Hypertensive chronic kidney disease with stage 5 chronic kidney disease or end stage renal disease Status: Acute (5) Xanthogranulomatous pyelonephritis Status: Acute (6) Bacteremia Status: Acute (7) SBE (subacute bacterial endocarditis) Status: Acute (8) Xanthogranulomatous pyelonephritis Status: Acute - Assessment and Plan (Free Text) Plan: IV ABs Dialysis today, MWF Await nephrectomy
[2018-05-28] MEDS: Epoetin Alfa 10,000 unit/ml Dialysis IV SCH (15:27)
--- NOTE | 2018-05-28 21:04 | CP.PCM.PN ---
Subjective - Subjective Subjective: dictated Objective - Vital Signs/Intake and Output Vital Signs (last 24 hours): Temp Pulse Resp BP Pulse Ox 98.8 F 78 18 97/36 L 100 05/28/18 17:45 05/28/18 17:45 05/28/18 17:45 05/28/18 17:45 05/28/18 17:45 - Medications Medications: Current Medications Alprazolam (Xanax) 0.5 mg PO Q6 PRN PRN Reason: Anxiety Last Admin: 05/27/18 21:03 Dose: 0.5 mg Aspirin (Aspirin Chewable) 81 mg PO DAILY [facility] Last Admin: 05/28/18 10:47 Dose: 81 mg Calcium Acetate (Phoslo) 1,334 mg PO TIDCC [facility] Last Admin: 05/28/18 17:58 Dose: 1,334 mg Diphenhydramine HCl (Benadryl) 25 mg PO Q12 PRN PRN Reason: Itching / Pruritus Last Admin: 05/27/18 12:38 Dose: 25 mg Epoetin Zain (Procrit) 10,000 unit IV MWF [facility] Last Admin: 05/28/18 15:27 Dose: 10,000 unit Ferrous Sulfate (Feosol) 325 mg PO BID [facility] Last Admin: 05/28/18 17:58 Dose: 325 mg Furosemide (Lasix) 80 mg PO BID [facility] Last Admin: 05/28/18 17:52 Dose: Not Given Cefazolin Sodium (Ancef) 1 gm in 50 mls @ 100 mls/hr IVPB Q24H [facility] Last Admin: 05/28/18 05:56 Dose: 100 mls/hr Metoprolol Tartrate (Lopressor) 12.5 mg PO BID [facility] Last Admin: 05/28/18 17:52 Dose: Not Given Oxycodone/Acetaminophen (Percocet 5/325 Mg Tab) 2 tab PO Q6H PRN PRN Reason: Pain, moderate (4-7) Stop: 05/29/18 09:55 Last Admin: 05/28/18 06:00 Dose: 2 tab Pantoprazole Sodium (Protonix Ec Tab) 40 mg PO DAILY [facility] Last Admin: 05/28/18 10:47 Dose: 40 mg Senna/Docusate Sodium (Senokot S 50 Mg-8.6 Mg) 2 tab PO BID [facility] Last Admin: 05/28/18 17:52 Dose: Not Given Sevelamer Carbonate (Renvela) 2.4 gm PO TIDCC [facility] Last Admin: 05/28/18 17:58 Dose: 2.4 gm - Labs Labs: 05/27/18 08:33 05/27/18 08:33 APTT 38 SECONDS (21-34) H 05/03/18 23:27
[2018-05-29] MEDS: ceFAZolin 1 gm FROZEN Premix 1 GM/50 ML ML IVPB SCH (06:04)
[2018-05-29] MEDS: Sevelamer Carb 2.4 gm/Packet PO SCH ×3 (08:55→17:11)
--- NOTE | 2018-05-29 09:01 | PCM.PSYCH ---
Initial Psychiatric Evaluation - Initial Psychiatric Evaluation Type of Admission: Voluntary Legal Status: Capacity Current Medications: Active Medications Generic Name Dose Route Start Last Admin Trade Name Freq PRN Reason Stop Dose Admin Alprazolam 0.5 mg 05/03/18 23:22 05/27/18 21:03 Xanax PO 0.5 mg Q6 PRN Administration Anxiety Aspirin 81 mg 05/05/18 10:00 05/28/18 10:47 Aspirin Chewable PO 81 mg DAILY [facility] Administration Calcium Acetate 1,334 mg 05/07/18 12:43 05/28/18 17:58 Phoslo PO 1,334 mg TIDCC [facility] Administration Diphenhydramine HCl 25 mg 05/24/18 12:30 05/27/18 12:38 Benadryl PO 25 mg Q12 PRN Administration Itching / Pruritus Epoetin Zain 10,000 unit 05/18/18 12:45 05/28/18 15:27 Procrit IV 10,000 unit MWF [facility] Administration Ferrous Sulfate 325 mg 05/04/18 10:00 05/28/18 17:58 Feosol PO 325 mg BID [facility] Administration Furosemide 80 mg 05/22/18 19:15 05/28/18 17:52 Lasix PO Not Given BID [facility] Cefazolin Sodium 1 gm in 50 mls @ 100 mls/hr 05/09/18 06:30 05/29/18 06:04 Ancef IVPB 100 mls/hr Q24H [facility] Administration Metoprolol Tartrate 12.5 mg 05/08/18 11:00 05/28/18 17:52 Lopressor PO Not Given BID [facility] Oxycodone/Acetaminophen 2 tab 05/26/18 09:54 05/28/18 06:00 Percocet 5/325 Mg Tab PO 05/29/18 09:55 2 tab Q6H PRN Administration Pain, moderate (4-7) Pantoprazole Sodium 40 mg 05/04/18 10:00 05/28/18 10:47 Protonix Ec Tab PO 40 mg DAILY [facility] Administration Senna/Docusate Sodium 2 tab 05/04/18 10:00 05/28/18 17:52 Senokot S 50 Mg-8.6 Mg PO Not Given BID [facility] Sevelamer Carbonate 2.4 gm 05/04/18 12:00 05/28/18 17:58 Renvela PO 2.4 gm TIDCC [facility] Administration Past Psychiatric History - Past Psychiatric History Pertinent Medical Hx (Current Medical&Sleep Prob, Allergies): Allergies Allergy/AdvReac Type Severity Reaction Status Date / Time No Known Allergies Allergy Verified 02/09/18 14:15 Ferrous Sulfate [Feosol] 325 mg PO BID #60 tab 06/28/17 Pantoprazole [Protonix EC Tab] 40 mg PO DAILY #30 ect 06/28/17 Acetaminophen [Tylenol 325mg tab] 650 mg PO Q6H PRN tab 04/23/18 Calcium Acetate [Phoslo] 667 mg PO TID #90 tab 04/23/18 Docusate Sodium/Sennosides A [Senokot S 50 MG-8.6 MG] 2 tab PO BID #30 tab 04/23/18 Sevelamer Carbonate [Renvela] 2.4 gm PO BIDCC #60 packet 04/23/18 Tamsulosin [Flomax] 0.4 mg PO DAILY #30 cap 04/23/18 oxyCODONE/Acetaminophen [Percocet 5/325 mg Tab] 2 tab PO Q4H PRN #20 tab 04/23/18
[2018-05-29] MEDS: Pantoprazole 40 mg EC Tab PO SCH (10:13)
[2018-05-29] MEDS: Docusate-Senna 50 mg-8.6 mg Tab PO SCH ×2 (10:14→17:13)
--- NOTE | 2018-05-29 10:24 | CP.PCM.PN ---
Subjective - Date & Time of Evaluation Date of Evaluation: 05/29/18 Time of Evaluation: 10:22 - Subjective Subjective: seen and examined no events afebrile blood cx neg c/o dyspnea cough leg swelling Objective - Vital Signs/Intake and Output Vital Signs (last 24 hours): Temp Pulse Resp BP Pulse Ox 98.6 F 77 20 105/46 L 97 05/29/18 07:34 05/29/18 07:34 05/29/18 07:34 05/29/18 07:34 05/29/18 07:34 Intake and Output: 05/29/18 05/29/18 06:59 18:59 Intake Total 350 Balance 350 - Medications Medications: Current Medications Alprazolam (Xanax) 0.5 mg PO Q6 PRN PRN Reason: Anxiety Last Admin: 05/27/18 21:03 Dose: 0.5 mg Aspirin (Aspirin Chewable) 81 mg PO DAILY [facility] Last Admin: 05/29/18 10:13 Dose: 81 mg Calcium Acetate (Phoslo) 1,334 mg PO TIDCC [facility] Last Admin: 05/29/18 08:55 Dose: 1,334 mg Diphenhydramine HCl (Benadryl) 25 mg PO Q12 PRN PRN Reason: Itching / Pruritus Last Admin: 05/27/18 12:38 Dose: 25 mg Epoetin Zain (Procrit) 10,000 unit IV MWF [facility] Last Admin: 05/28/18 15:27 Dose: 10,000 unit Ferrous Sulfate (Feosol) 325 mg PO BID [facility] Last Admin: 05/29/18 10:13 Dose: 325 mg Furosemide (Lasix) 80 mg PO BID [facility] Last Admin: 05/29/18 10:14 Dose: Not Given Cefazolin Sodium (Ancef) 1 gm in 50 mls @ 100 mls/hr IVPB Q24H [facility] Last Admin: 05/29/18 06:04 Dose: 100 mls/hr Metoprolol Tartrate (Lopressor) 12.5 mg PO BID [facility] Last Admin: 05/29/18 10:14 Dose: Not Given Pantoprazole Sodium (Protonix Ec Tab) 40 mg PO DAILY [facility] Last Admin: 05/29/18 10:13 Dose: 40 mg Senna/Docusate Sodium (Senokot S 50 Mg-8.6 Mg) 2 tab PO BID [facility] Last Admin: 05/29/18 10:14 Dose: Not Given Sevelamer Carbonate (Renvela) 2.4 gm PO TIDCC [facility] Last Admin: 05/29/18 08:55 Dose: 2.4 gm - Labs Labs: 05/27/18 08:33 05/27/18 08:33 APTT 38 SECONDS (21-34) H 05/03/18 23:27 - Constitutional Appears: No Acute Distress, Chronically Ill - Head Exam Head Exam: NORMAL INSPECTION, NORMOCEPHALIC - Eye Exam Eye Exam: Normal appearance, PERRL - ENT Exam ENT Exam: Mucous Membranes Moist, Normal Exam - Neck Exam Neck Exam: Full ROM, Normal Inspection - Respiratory Exam Respiratory Exam: Clear to Ausculation Bilateral, NORMAL BREATHING PATTERN - Cardiovascular Exam Cardiovascular Exam: REGULAR RHYTHM, RRR - GI/Abdominal Exam GI & Abdominal Exam: Distended, Soft - Extremities Exam Extremities Exam: Full ROM, Normal Inspection, Pedal Edema - Neurological Exam Neurological Exam: Alert, Awake, Oriented x3 - Psychiatric Exam Psychiatric exam: Depressed - Skin Skin Exam: Dry, Intact Assessment and Plan (1) Bacteremia Status: Acute (2) ESRD (end stage renal disease) Status: Acute (3) SBE (subacute bacterial endocarditis) Status: Acute (4) Xanthogranulomatous pyelonephritis Status: Acute (5) Atrial fibrillation Status: Acute - Assessment and Plan (Free Text) Assessment: maintain hd mwf extra treatment today for uf fluid restriction awaiting surgery
--- NOTE | 2018-05-29 12:21 | CP.PCM.PCO ---
Physician Communication Note - Physician Communication Note Physician Communication Note: medically stable for or average risk
--- NOTE | 2018-05-29 14:41 | PCM.URO ---
Urology Progress Note - Objective Lab Studies: Reviewed (gu plans : nephrectomy better is with a robotic approach we are working on that angle. pt reluctant to leave here . so we may do open neprhectomy. will await medical clearance would need to stop aspirin for 7-10 days and any other antiplatelet or coagulation meds) Lab Results Last 24 Hours: Laboratory Results - last 24 hr 05/28/18 14:25 Hep Bs Antigen Negative Intake & Output: Intake & Output 05/28/18 05/29/18 05/29/18 18:59 06:59 18:59 Intake Total 350 Balance 350 Intake: Intake, IV Amount 50 Right Upper arm 50 Oral 300 Other: # Voids Urine, Voided 2 Vital Signs: Vital Signs - 24 hr 05/28/18 05/28/18 05/28/18 14:40 14:55 15:25 Temperature Pulse Rate Pulse Rate [ Right Brachial] Respiratory Rate Blood Pressure Blood Pressure 83/36 L 88/38 L 85/38 L [Right Arm] O2 Sat by Pulse Oximetry 05/28/18 05/28/18 05/28/18 15:55 16:25 16:55 Temperature Pulse Rate Pulse Rate [ Right Brachial] Respiratory Rate Blood Pressure Blood Pressure 87/39 L 95/34 L 85/38 L [Right Arm] O2 Sat by Pulse Oximetry 05/28/18 05/28/18 05/28/18 17:25 17:45 23:51 Temperature 98.2 F 98.8 F 97.7 F Pulse Rate 78 79 Pulse Rate [ 71 Right Brachial] Respiratory 20 18 20 Rate Blood Pressure 97/36 L 91/50 L Blood Pressure 88/43 L [Right Arm] O2 Sat by Pulse 97 100 97 Oximetry 05/29/18 05/29/18 05/29/18 07:34 13:30 13:45 Temperature 98.6 F 98 F 98 F Pulse Rate 77 80 Pulse Rate [ 80 Right Brachial] Respiratory 20 20 20 Rate Blood Pressure 105/46 L 105/47 L Blood Pressure 91/39 L [Right Arm] O2 Sat by Pulse 97 98 Oximetry 05/29/18 14:00 Temperature Pulse Rate Pulse Rate [ 78 Right Brachial] Respiratory 16 Rate Blood Pressure Blood Pressure 97/43 L [Right Arm] O2 Sat by Pulse Oximetry
[2018-05-29] MEDS ORDERED: Oxycodone/Acetaminophen 5/325 mg Tab PO PRN (17:00)
--- NOTE | 2018-05-29 22:54 | CP.PCM.PN ---
Subjective - Date & Time of Evaluation Date of Evaluation: 06/05/18 Time of Evaluation: 22:54 - Subjective Subjective: AFEBRILE ON HD [facility] F/U NOTED. MEDS RENEWED. LABS REVIEWED. ON IV ABX Objective - Vital Signs/Intake and Output Vital Signs (last 24 hours): Temp Pulse Resp BP Pulse Ox 97.4 F L 77 20 114/41 L 99 05/29/18 16:10 05/29/18 16:10 05/29/18 16:10 05/29/18 17:12 05/29/18 16:10 Intake and Output: 05/29/18 05/30/18 18:59 06:59 Intake Total 350 Balance 350 - Medications Medications: Current Medications Alprazolam (Xanax) 0.5 mg PO Q6 PRN PRN Reason: Anxiety Last Admin: 05/27/18 21:03 Dose: 0.5 mg Aspirin (Aspirin Chewable) 81 mg PO DAILY [facility] Last Admin: 05/29/18 10:13 Dose: 81 mg Calcium Acetate (Phoslo) 1,334 mg PO TIDCC [facility] Last Admin: 05/29/18 17:11 Dose: 1,334 mg Diphenhydramine HCl (Benadryl) 25 mg PO Q12 PRN PRN Reason: Itching / Pruritus Last Admin: 05/27/18 12:38 Dose: 25 mg Epoetin Zain (Procrit) 10,000 unit IV [facility] Last Admin: 05/28/18 15:27 Dose: 10,000 unit Ferrous Sulfate (Feosol) 325 mg PO BID [facility] Last Admin: 05/29/18 17:11 Dose: 325 mg Furosemide (Lasix) 80 mg PO BID [facility] Last Admin: 05/29/18 17:12 Dose: Not Given Cefazolin Sodium (Ancef) 1 gm in 50 mls @ 100 mls/hr IVPB Q24H [facility] Last Admin: 05/29/18 06:04 Dose: 100 mls/hr Vancomycin HCl 500 mg/ Sodium (Chloride) 100 mls @ 100 mls/hr IVPB [facility]; Protocol Stop: 06/20/18 09:01 Metoprolol Tartrate (Lopressor) 12.5 mg PO BID [facility] Last Admin: 05/29/18 17:12 Dose: Not Given Oxycodone/Acetaminophen (Percocet 5/325 Mg Tab) 2 tab PO Q6H PRN PRN Reason: Pain, severe (8-10) Stop: 06/01/18 17:01 Last Admin: 05/29/18 17:11 Dose: 2 tab Pantoprazole Sodium (Protonix Ec Tab) 40 mg PO DAILY [facility] Last Admin: 05/29/18 10:13 Dose: 40 mg Senna/Docusate Sodium (Senokot S 50 Mg-8.6 Mg) 2 tab PO BID [facility] Last Admin: 05/29/18 17:13 Dose: Not Given Sevelamer Carbonate (Renvela) 2.4 gm PO TIDCC [facility] Last Admin: 05/29/18 17:11 Dose: 2.4 gm - Labs Labs: 05/27/18 08:33 05/27/18 08:33 APTT 38 SECONDS (21-34) H 05/03/18 23:27 - Constitutional Appears: No Acute Distress - Head Exam Head Exam: NORMAL INSPECTION - Eye Exam Eye Exam: EOMI, PERRL - ENT Exam ENT Exam: Normal Oropharynx - Neck Exam Neck Exam: Normal Inspection - Respiratory Exam Respiratory Exam: Decreased Breath Sounds (BASES), NORMAL BREATHING PATTERN - Cardiovascular Exam Cardiovascular Exam: REGULAR RHYTHM, +S1, +S2 - GI/Abdominal Exam GI & Abdominal Exam: Soft, Normal Bowel Sounds (SCAR OF PREVIOUS SURGERY) - Extremities Exam Extremities Exam: Normal Capillary Refill, Pedal Edema (2+). absent: Calf Tenderness - Neurological Exam Neurological Exam: Alert, Awake, CN II-XII Intact, Normal Gait, Oriented x3, Reflexes Normal - Psychiatric Exam Psychiatric exam: Normal Mood - Skin Skin Exam: Normal Color, Pallor, Warm Assessment and Plan (1) Bacteremia Status: Acute (2) SBE (subacute bacterial endocarditis) Status: Acute (3) Xanthogranulomatous pyelonephritis Status: Acute (4) Hypertensive CKD, ESRD on dialysis Status: Acute - Assessment and Plan (Free Text) Plan: TOLERATING iv ANTIBIOTICS FOR STREPTOCOCCUS MITIS BACTEREMIA/AV-ENDOCARDITIS ON IV CEFAZOLIN AND IV VANCOMYCIN POST HD MWF CONTINUE RX FOR NOW TILL SURGERY. REPEAT BLOOD CULTURES 05/09/18 2:2 SETS -VE X TO DATE REPEAT BLOOD CULTURES 05/03/18 -VE GROWTH X 5DAYS. SURGERY PER CONSULTANTS. PT MEDICALLY BEING STABILIZED.
--- NOTE | 2018-05-29 23:51 | CP.PCM.PN ---
Subjective - Subjective Subjective: dictated Objective - Vital Signs/Intake and Output Vital Signs (last 24 hours): Temp Pulse Resp BP Pulse Ox 98.3 F 85 20 107/42 L 97 05/29/18 23:22 05/29/18 23:22 05/29/18 23:22 05/29/18 23:22 05/29/18 23:22 Intake and Output: 05/29/18 05/30/18 18:59 06:59 Intake Total 350 Balance 350 - Medications Medications: Current Medications Alprazolam (Xanax) 0.5 mg PO Q6 PRN PRN Reason: Anxiety Last Admin: 05/27/18 21:03 Dose: 0.5 mg Aspirin (Aspirin Chewable) 81 mg PO DAILY [facility] Last Admin: 05/29/18 10:13 Dose: 81 mg Calcium Acetate (Phoslo) 1,334 mg PO TIDCC [facility] Last Admin: 05/29/18 17:11 Dose: 1,334 mg Diphenhydramine HCl (Benadryl) 25 mg PO Q12 PRN PRN Reason: Itching / Pruritus Last Admin: 05/27/18 12:38 Dose: 25 mg Epoetin Zain (Procrit) [facility] Last Admin: 05/28/18 15:27 Dose: 10,000 unit Ferrous Sulfate (Feosol) 325 mg PO BID [facility] Last Admin: 05/29/18 17:11 Dose: 325 mg Furosemide (Lasix) 80 mg PO BID [facility] Last Admin: 05/29/18 17:12 Dose: Not Given Cefazolin Sodium (Ancef) 1 gm in 50 mls @ 100 mls/hr IVPB Q24H [facility] Last Admin: 05/29/18 06:04 Dose: 100 mls/hr Vancomycin HCl 500 mg/ Sodium (Chloride) 100 mls @ 100 mls/hr IVPB [facility] [place]; Protocol Stop: 06/20/18 09:01 Metoprolol Tartrate (Lopressor) 12.5 mg PO BID [facility] Last Admin: 05/29/18 17:12 Dose: Not Given Oxycodone/Acetaminophen (Percocet 5/325 Mg Tab) 2 tab PO Q6H PRN PRN Reason: Pain, severe (8-10) Stop: 06/01/18 17:01 Last Admin: 05/29/18 17:11 Dose: 2 tab Pantoprazole Sodium (Protonix Ec Tab) 40 mg PO DAILY [facility] Last Admin: 05/29/18 10:13 Dose: 40 mg Senna/Docusate Sodium (Senokot S 50 Mg-8.6 Mg) 2 tab PO BID [facility] Last Admin: 05/29/18 17:13 Dose: Not Given Sevelamer Carbonate (Renvela) 2.4 gm PO TIDCC [facility] Last Admin: 05/29/18 17:11 Dose: 2.4 gm - Labs Labs: 05/27/18 08:33 05/27/18 08:33 APTT 38 SECONDS (21-34) H 05/03/18 23:27
[2018-05-30] MEDS: ceFAZolin 1 gm FROZEN Premix 1 GM/50 ML ML IVPB SCH (05:34)
[2018-05-30] MEDS: Sevelamer Carb 2.4 gm/Packet PO SCH ×2 (08:37→11:39)
[2018-05-30] MEDS: Docusate-Senna 50 mg-8.6 mg Tab PO SCH (10:53)
[2018-05-30] MEDS: Pantoprazole 40 mg EC Tab PO SCH (10:53)
[2018-05-30] MEDS: Epoetin Alfa 10,000 unit/ml Dialysis IV SCH (12:09)
--- NOTE | 2018-05-30 13:44 | CP.PCM.PN ---
Subjective - Date & Time of Evaluation Date of Evaluation: 05/30/18 Time of Evaluation: 13:42 - Subjective Subjective: no distress reviewed fluid restriction nephrectomy possibly later this week no chest pain no sob no palpitations no fever no chills no diarrhea no nausea decreased urine production no rash no arthralgias Objective - Vital Signs/Intake and Output Vital Signs (last 24 hours): Temp Pulse Resp BP Pulse Ox 97.8 F 84 16 93/43 L 95 05/30/18 09:56 05/30/18 09:56 05/30/18 09:56 05/30/18 11:45 05/30/18 09:56 Intake and Output: 05/30/18 05/30/18 06:59 18:59 Intake Total 300 Balance 300 - Medications Medications: Current Medications Alprazolam (Xanax) 0.5 mg PO Q6 PRN PRN Reason: Anxiety Last Admin: 05/30/18 02:39 Dose: 0.5 mg Aspirin (Aspirin Chewable) 81 mg PO DAILY [facility] Last Admin: 05/29/18 10:13 Dose: 81 mg Calcium Acetate (Phoslo) 1,334 mg PO TIDCC [facility] Last Admin: 05/30/18 11:39 Dose: Not Given Diphenhydramine HCl (Benadryl) 25 mg PO Q12 PRN PRN Reason: Itching / Pruritus Last Admin: 05/27/18 12:38 Dose: 25 mg Epoetin Zain (Procrit) 10,000 unit IV [facility] Last Admin: 05/30/18 12:09 Dose: 10,000 unit Ferrous Sulfate (Feosol) 325 mg PO BID [facility] Last Admin: 05/30/18 10:52 Dose: Not Given Furosemide (Lasix) 80 mg PO BID [facility] Last Admin: 05/30/18 10:53 Dose: Not Given Cefazolin Sodium (Ancef) 1 gm in 50 mls @ 100 mls/hr IVPB Q24H [facility] Last Admin: 05/30/18 05:34 Dose: 100 mls/hr Vancomycin HCl 500 mg/ Sodium (Chloride) 100 mls @ 100 mls/hr IVPB [facility]; Protocol Stop: 06/20/18 09:01 Metoprolol Tartrate (Lopressor) 12.5 mg PO BID [facility] Last Admin: 05/30/18 10:53 Dose: Not Given Oxycodone/Acetaminophen (Percocet 5/325 Mg Tab) 2 tab PO Q6H PRN PRN Reason: Pain, severe (8-10) Stop: 06/01/18 17:01 Last Admin: 05/29/18 17:11 Dose: 2 tab Pantoprazole Sodium (Protonix Ec Tab) 40 mg PO DAILY [facility] Last Admin: 05/30/18 10:53 Dose: Not Given Senna/Docusate Sodium (Senokot S 50 Mg-8.6 Mg) 2 tab PO BID [facility] Last Admin: 05/30/18 10:53 Dose: Not Given Sevelamer Carbonate (Renvela) 2.4 gm PO TIDCC [facility] Last Admin: 05/30/18 11:39 Dose: Not Given - Labs Labs: 05/27/18 08:33 05/27/18 08:33 APTT 38 SECONDS (21-34) H 05/03/18 23:27 - Constitutional Appears: Non-toxic, Chronically Ill - Head Exam Head Exam: ATRAUMATIC, NORMAL INSPECTION - Eye Exam Eye Exam: EOMI - ENT Exam ENT Exam: Mucous Membranes Moist - Neck Exam Neck Exam: Full ROM. absent: Lymphadenopathy - Respiratory Exam Respiratory Exam: NORMAL BREATHING PATTERN. absent: Rales - Cardiovascular Exam Cardiovascular Exam: REGULAR RHYTHM, Murmur - GI/Abdominal Exam GI & Abdominal Exam: Soft. absent: Tenderness - Extremities Exam Extremities Exam: Pedal Edema - Neurological Exam Neurological Exam: Awake, Normal Gait, Oriented x3 Assessment and Plan - Assessment and Plan (Free Text) Assessment: HD today watch fluid intake continue AB for nephrectomy
--- NOTE | 2018-05-30 14:21 | CP.PCM.PN ---
Subjective - Date & Time of Evaluation Date of Evaluation: 05/30/18 Time of Evaluation: 14:21 - Subjective Subjective: afebrile, Offers no new complaints. Patient on hemodialysis mwf. Tolerating IV antibiotics, TOLERATING iv ANTIBIOTICS FOR STREPTOCOCCUS MITIS BACTEREMIA/AV-ENDOCARDITIS REPEAT BLOOD CULTURES 05/09/18 2:2 SETS -VE X TO DATE REPEAT BLOOD CULTURES 05/03/18 -VE GROWTH X 5DAYS. SURGERY PER CONSULTANTS. PT MEDICALLY BEING STABILIZED. Reported by [employer] patient going home. Case discussed with nurse practitioner MS MCIMLLAN, PLAN; KEFLEX BY MOUTH 500 MG TWICE A DAY X TILL AORTIC VALVE SURGERY. CONTINUE iv VANCOMYCIN 500 MG mwf POST EACH HEMODIALYSIS TILL AV SURGERY. PATIENT TO FOLLOW-UP OUTPT WITH /PMD FOR RIGHT NEPHRECTOMY REPORTED. Objective - Vital Signs/Intake and Output Vital Signs (last 24 hours): Temp Pulse Resp BP Pulse Ox 97.8 F 84 16 93/43 L 95 05/30/18 09:56 05/30/18 09:56 05/30/18 09:56 05/30/18 11:45 05/30/18 09:56 Intake and Output: 05/30/18 05/30/18 06:59 18:59 Intake Total 300 Balance 300 - Medications Medications: Current Medications Alprazolam (Xanax) 0.5 mg PO Q6 PRN PRN Reason: Anxiety Last Admin: 05/30/18 02:39 Dose: 0.5 mg Aspirin (Aspirin Chewable) 81 mg PO DAILY [facility] Last Admin: 05/29/18 10:13 Dose: 81 mg Calcium Acetate (Phoslo) 1,334 mg PO TIDCC [facility] Last Admin: 05/30/18 11:39 Dose: Not Given Diphenhydramine HCl (Benadryl) 25 mg PO Q12 PRN PRN Reason: Itching / Pruritus Last Admin: 05/27/18 12:38 Dose: 25 mg Epoetin Zain (Procrit) 10,000 unit IV MWF [facility] Last Admin: 05/30/18 12:09 Dose: 10,000 unit Ferrous Sulfate (Feosol) 325 mg PO BID [facility] Last Admin: 05/30/18 10:52 Dose: Not Given Furosemide (Lasix) 80 mg PO BID [facility] Last Admin: 05/30/18 10:53 Dose: Not Given Cefazolin Sodium (Ancef) 1 gm in 50 mls @ 100 mls/hr IVPB Q24H [facility] Last Admin: 05/30/18 05:34 Dose: 100 mls/hr Vancomycin HCl 500 mg/ Sodium (Chloride) 100 mls @ 100 mls/hr IVPB MWF [facility]; Protocol Stop: 06/20/18 09:01 Metoprolol Tartrate (Lopressor) 12.5 mg PO BID [facility] Last Admin: 05/30/18 10:53 Dose: Not Given Oxycodone/Acetaminophen (Percocet 5/325 Mg Tab) 2 tab PO Q6H PRN PRN Reason: Pain, severe (8-10) Stop: 06/01/18 17:01 Last Admin: 05/29/18 17:11 Dose: 2 tab Pantoprazole Sodium (Protonix Ec Tab) 40 mg PO DAILY [facility] Last Admin: 05/30/18 10:53 Dose: Not Given Senna/Docusate Sodium (Senokot S 50 Mg-8.6 Mg) 2 tab PO BID [facility] Last Admin: 05/30/18 10:53 Dose: Not Given Sevelamer Carbonate (Renvela) 2.4 gm PO TIDCC [facility] Last Admin: 05/30/18 11:39 Dose: Not Given - Labs Labs: 05/27/18 08:33 05/27/18 08:33 APTT 38 SECONDS (21-34) H 05/03/18 23:27 - Constitutional Appears: No Acute Distress - Head Exam Head Exam: NORMAL INSPECTION - Eye Exam Eye Exam: EOMI, PERRL - ENT Exam ENT Exam: Normal Oropharynx - Neck Exam Neck Exam: Normal Inspection - Respiratory Exam Respiratory Exam: Clear to Ausculation Bilateral - Cardiovascular Exam Cardiovascular Exam: REGULAR RHYTHM, +S1, +S2, Murmur - GI/Abdominal Exam GI & Abdominal Exam: Soft, Normal Bowel Sounds. absent: Tenderness - Extremities Exam Extremities Exam: Normal Capillary Refill, Pedal Edema (2+). absent: Calf Tenderness - Neurological Exam Neurological Exam: Alert, Awake, CN II-XII Intact, Normal Gait, Oriented x3, Reflexes Normal - Psychiatric Exam Psychiatric exam: Normal Mood - Skin Skin Exam: Normal Color, Warm Assessment and Plan (1) Bacteremia Status: Acute (2) SBE (subacute bacterial endocarditis) Status: Acute (3) Xanthogranulomatous pyelonephritis Status: Acute (4) Hypertensive CKD, ESRD on dialysis Status: Acute
[2018-05-30 15:48] VITALS: BP 109/47; PULSE 89; RESP 20; TEMP 98.1; O2SAT 97
--- NOTE | 2018-05-30 17:27 | CP.PCM.PN ---
Subjective - Date & Time of Evaluation Date of Evaluation: 05/30/18 Time of Evaluation: 11:00 - Subjective Subjective: alert and orientedx3, no sob or chest pains, no acute distress. Objective - Vital Signs/Intake and Output Vital Signs (last 24 hours): Temp Pulse Resp BP Pulse Ox 98.1 F 89 20 109/47 L 97 05/30/18 15:47 05/30/18 15:47 05/30/18 15:47 05/30/18 15:47 05/30/18 15:47 Intake and Output: 05/30/18 05/30/18 06:59 18:59 Intake Total 300 Balance 300 - Labs Labs: 05/27/18 08:33 05/27/18 08:33 APTT 38 SECONDS (21-34) H 05/03/18 23:27 Assessment and Plan - Assessment and Plan (Free Text) Assessment: 48 year old male with AVR, ESRD, await for nephrectomy , seen and examined. Alert and orientedx3, plan to discharge home and follow up with DR Estella Ferro in 1 week for nephrectomy. Discussed with DR Marc and DR Florez, plan to continue with vancomycin after each dialysis and keflex 1 bid x2 weeks for now. Advised to follow up with DR Winter and DR Ferro as advised. All medications given from [facility].
--- NOTE | 2018-05-30 23:25 | CP.PCM.DIS ---
Provider - Provider Date of Admission: 05/03/18 23:12 Attending physician: Mikel Marc MD Consults: 05/03/18 23:13 Physician Consult Routine Comment: ESRD ON HD Consulting Provider: Dontrell Liang Consulting Physician: Dontrell Liang Reason for Consult: NEPHROLOGY 05/03/18 23:29 Cardiology Consult Routine Comment: elevated troponin Consulting Provider: Mc Miner Consulting Physician: Mc Miner Reason for Consult: elevated troponin Nephrology Consult Routine Comment: dialysis M,W,F Consulting Provider: Dontrell Liang Consulting Physician: Dontrell Liang Reason for Consult: dialysis M,W,F 05/04/18 22:08 Physician Consult Routine Comment: Consulting Provider: Naresh Schultz Consulting Physician: Naresh Schultz Reason for Consult: cp 05/05/18 19:13 Physician Consult Routine Comment: Consulting Provider: Mc Miner Consulting Physician: Mc Miner Reason for Consult: Aortic Valve Vegetation 05/06/18 10:45 Physician Consult Routine Comment: Consulting Provider: Melva Florez Consulting Physician: Melva Florez Reason for Consult: SBE 05/08/18 19:11 General Surgery Consult Routine Comment: Consulting Provider: Doug Gonzalez Consulting Physician: Doug Gonzalez Reason for Consult: postop pain, hard ball under umbilicus 05/23/18 11:15 Urology Consult Routine Comment: Consulting Provider: Balta Ferro Consulting Physician: Balta Ferro Reason for Consult: need for nephrectomy at [facility] per Dr. Fenton (Anderson) request 05/25/18 23:30 Psychiatry Consult Routine Comment: Consulting Provider: Sariah Willett Consulting Physician: Sariah Willett Reason for Consult: opiates Hospital Course - Lab Results Lab Results: Micro Results 05/09/18 01:39 Blood-During Dialysis Blood Culture - Final NO GROWTH AFTER 5 DAYS 05/09/18 01:39 Blood-During Dialysis Blood Culture - Final NO GROWTH AFTER 5 DAYS 05/09/18 01:39 Blood-During Dialysis Gram Stain - Final TEST NOT PERFORMED 05/03/18 22:00 Blood Blood Culture - Final NO GROWTH AFTER 5 DAYS 05/03/18 22:00 Blood Gram Stain - Final TEST NOT PERFORMED 05/03/18 21:00 Blood Blood Culture - Final NO GROWTH AFTER 5 DAYS 05/03/18 21:00 Blood Gram Stain - Final TEST NOT PERFORMED Most Recent Lab Values WBC 5.5 K/uL (4.8-10.8) 05/27/18 08:33 RBC 2.97 Mil/uL (4.40-5.90) L 05/27/18 08:33 Hgb 9.7 g/dL (12.0-18.0) L 05/27/18 08:33 Hct 29.6 % (35.0-51.0) L 05/27/18 08:33 MCV 99.4 fL (80.0-94.0) H D 05/27/18 08:33 MCH 32.7 pg (27.0-31.0) H 05/27/18 08:33 MCHC 32.9 g/dL (33.0-37.0) L 05/27/18 08:33 RDW 20.3 % (11.5-14.5) H 05/27/18 08:33 Plt Count 108 K/uL (130-400) L D 05/27/18 08:33 MPV 9.2 fL (7.2-11.7) 05/27/18 08:33 Neut % (Auto) 67.2 % (50.0-75.0) 05/27/18 08:33 Lymph % (Auto) 21.6 % (20.0-40.0) 05/27/18 08:33 [place] % (Auto) 7.9 % (0.0-10.0) 05/27/18 08:33 Eos % (Auto) 2.8 % (0.0-4.0) 05/27/18 08:33 Baso % (Auto) 0.5 % (0.0-2.0) 05/27/18 08:33 Neut # (Auto) 3.7 K/uL (1.8-7.0) 05/27/18 08:33 Lymph # (Auto) 1.2 K/uL (1.0-4.3) 05/27/18 08:33 [place] # (Auto) 0.4 K/uL (0.0-0.8) 05/27/18 08:33 Eos # (Auto) 0.2 K/uL (0.0-0.7) 05/27/18 08:33 Baso # (Auto) 0.0 K/uL (0.0-0.2) 05/27/18 08:33 Differential Comment 05/27/18 08:33 ESR 22 mm/hr (0-15) H 05/18/18 09:54 APTT 38 SECONDS (21-34) H 05/03/18 23:27 pO2 38 mm/Hg (30-55) 05/03/18 22:21 VBG pH 7.45 (7.32-7.43) H 05/03/18 22:21 VBG pCO2 38 mmHg (40-60) L 05/03/18 22:21 VBG HCO3 26.2 mmol/L 05/03/18 22:21 VBG Total CO2 27.6 mmol/L (22-28) 05/03/18 22:21 VBG O2 Sat (Calc) 68.7 % (40-65) H 05/03/18 22:21 VBG Base Excess 2.4 mmol/L (0.0-2.0) H 05/03/18 22:21 VBG Potassium 2.8 mmol/L (3.6-5.2) L 05/03/18 22:21 Sodium 146.0 mmol/l (132-148) 05/03/18 22:21 Chloride 112.0 mmol/L (98-107) H 05/03/18 22:21 Glucose 89 mg/dl (75-110) 05/03/18 22:21 Lactate 1.5 mmol/L (0.7-2.1) 05/03/18 22:21 Sodium 135 mmol/L (132-148) 05/27/18 08:33 Potassium 4.1 mmol/L (3.6-5.2) 05/27/18 08:33 Chloride 89 mmol/L (98-107) L 05/27/18 08:33 Carbon Dioxide 29 mmol/L (22-30) 05/27/18 08:33 Anion Gap 21 (10-20) H 05/27/18 08:33 BUN 61 mg/dL (9-20) H 05/27/18 08:33 Creatinine 10.2 mg/dL (0.8-1.5) H* 05/27/18 08:33 Est GFR ( Amer) 7 05/27/18 08:33 Est GFR (Non-Af Amer) 6 05/27/18 08:33 POC Glucose (mg/dL) 103 mg/dL (65-110) 05/20/18 12:38 Random Glucose 108 mg/dL (75-110) 05/27/18 08:33 Calcium 9.2 mg/dl (8.6-10.4) 05/27/18 08:33 Phosphorus 6.1 mg/dL (2.5-4.5) H 05/07/18 07:58 Magnesium 2.2 mg/dL (1.6-2.3) 05/07/18 07:58 Total Bilirubin 0.5 mg/dL (0.2-1.3) 05/27/18 08:33 Direct Bilirubin 0.5 mg/dL (0.0-0.4) H 05/18/18 09:54 AST 39 U/L (17-59) 05/27/18 08:33 ALT 17 U/L (21-72) L 05/27/18 08:33 Alkaline Phosphatase 164 U/L (38-126) H 05/27/18 08:33 Total Creatine Kinase 35 U/L (55-170) L 05/04/18 20:32 CK-MB (Mass) 0.62 ng/mL (0.0-3.38) 05/04/18 20:32 Troponin I 0.3390 ng/mL (0.00-0.120) H* 05/04/18 20:32 Total Protein 6.9 g/dL (6.3-8.3) 05/27/18 08:33 Albumin 3.6 g/dL (3.5-5.0) 05/27/18 08:33 Globulin 3.3 gm/dL (2.2-3.9) 05/27/18 08:33 Albumin/Globulin Ratio 1.1 (1.0-2.1) 05/27/18 08:33 Amylase 72 U/L (30-110) 05/20/18 13:53 Lipase 22 U/L (23-300) L 05/20/18 13:53 Venous Blood Potassium 2.8 mmol/L (3.6-5.2) L 05/03/18 22:21 Random Vancomycin 18.3 ug/mL 05/18/18 09:54 Urine Opiates Screen Positive (NEGATIVE) H 05/16/18 02:16 Urine Methadone Screen Negative (NEGATIVE) 05/16/18 02:16 Ur Barbiturates Screen Negative (NEGATIVE) 05/16/18 02:16 Ur Phencyclidine Scrn Negative (NEGATIVE) 05/16/18 02:16 Ur Amphetamines Screen Negative (NEGATIVE) 05/16/18 02:16 U Benzodiazepines Scrn Negative (NEGATIVE) 05/16/18 02:16 U Oth Cocaine Metabols Negative (NEGATIVE) 05/16/18 02:16 U Cannabinoids Screen Negative (NEGATIVE) 05/16/18 02:16 Hep Bs Antigen Negative (NEGATIVE) 05/28/18 14:25 Discharge Exam - Head Exam Head Exam: ATRAUMATIC, NORMAL INSPECTION Discharge Plan - Discharge Medications Prescriptions: Cephalexin [Keflex] 500 mg PO BID #30 capsule oxyCODONE/Acetaminophen [Percocet 5/325 mg Tab] 1 ea PO Q6H PRN #20 tab PRN Reason: Pain, Severe (8-10) Mirtazapine [Remeron] 15 mg PO HS #15 tablet ALPRAZolam [Xanax] 0.25 mg PO DAILY PRN #10 tab PRN Reason: Anxiety - Follow Up Plan Condition: STABLE Disposition: HOME/ ROUTINE Instructions: Bacterial Endocarditis (DC), Alprazolam, Cephalexin, Mirtazapine, Oxycodone and Acetaminophen, Dialysis and Diet Additional Instructions: Follow up with Dr. Ferro next , hold aspirin keflex 500mg po bid #30 x 2 weeks vancomycin to continue x 2 weeks then follow up with DR Gautam BALDERAS to continue MWF Follow up with PMD in 1 week Referrals: Doug Gonzalez MD [Staff Provider] - Dontrell Liang MD [Staff Provider] - Mc Miner MD [Staff Provider] - Melva Florez MD [Staff Provider] - Mikel Marc MD [Staff Provider] -
--- NOTE | 2018-05-31 02:41 | PN ---
DATE: 05/30/2018 SUBJECTIVE: The patient has been seen by Dr. Ferro, and he is followed as outpatient. He is feeling better. He has on and off flank pain. PHYSICAL EXAMINATION: VITAL SIGNS: BP 91/50, pulse 79, respiratory rate 20, temperature 97.7. LUNGS: Clear. CARDIOVASCULAR SYSTEM: S1, S2 regular. ABDOMEN: Soft. POSTOPERATIVE ASSESSMENT: 1. Bilateral nephrolithiasis with pyonephrosis, on antibiotics. 2. Aortic valve regurgitation with status post endocarditis with vegetation. 3. End-stage renal disease, on hemodialysis. PLAN: Antibiotics. Nephrectomy. Mikel Marc MD
--- NOTE | 2018-05-31 02:43 | PN ---
DATE: 05/30/2018 SUBJECTIVE: The patient continues to have bilateral flank pain and lower abdominal pain. No dysuria. No frequency. He is anxious. He is being seen by Psychiatry. PHYSICAL EXAMINATION: VITAL SIGNS: Blood pressure 105/47, pulse 80, respiratory rate 20, temperature 98. LUNGS: Clear. CARDIOVASCULAR SYSTEM: S1, S2 regular. ABDOMEN: Wounds are clean, healed. ASSESSMENT: 1. Pyonephrosis. 2. Nephrolithiasis. 3. Chronic kidney disease, on hemodialysis. PLAN: Antibiotics. Nephrectomy. Monitor the patient. Mikel Marc MD
--- NOTE | 2018-05-31 06:31 | DS ---
DISCHARGE DIAGNOSES: 1. Pyonephrosis. 2. Nephrolithiasis with end-stage renal disease. 3. Anxiety and depression. HISTORY OF PRESENT ILLNESS: This is a 48-year-old male with history of CKD, on hemodialysis, due to bilateral staghorn calculus, hepatitis C, anxiety, depression, on hemodialysis three times a week. He was admitted because of flank pain, fever, and chills. The patient was evaluated by Cardiology and ID, was maintained on antibiotics. He needs nephrectomy . I spoke to Dr. Ferro today, and the patient will be brought back to the hospital next . He is being discharged with outpatient followup. PHYSICAL EXAMINATION: VITAL SIGNS: Blood pressure 106/35, pulse 79, respiratory rate 20, and temperature 97.1. LABORATORY DATA: WBC 5.5, hemoglobin 9.7, hematocrit 29.6, platelets 108. Sodium 135, potassium 4.1, chloride 89, bicarb 29, BUN 61, creatinine 10.2. LFTs are benign. The patient is being discharged with outpatient followup. CONDITION UPON DISCHARGE: Stable. Mikel Marc MD
--- NOTE | 2018-06-01 12:22 | PQF ---
PROVIDER RESPONSE TEXT: Sepsis was ruled out REVIEWER QUERY TEXT: Rule Out Sepsis Clarification Rule out Sepsis is documented in the Medical Record. Please clarify whether: -- Patient has sepsis - Please document confirmed, suspected or probable causative organism - Please document confirmed, suspected or probable localized infection - Please clarify if sepsis was present on admission -- Sepsis was ruled out (include corresponding diagnosis for patient?s clinical picture and treatment ) -- Patient had sepsis which is resolved -- Other, please specify The patient's Clinical Indicators include: ADMITTED WITH FEVERS/CHILLS 06/08 PN BLOOD CULTURES -- ON ANTIBIOTICS ENDOCARDITIS PLEASE CLARIFY AND DOCUMENT IF ===SEPSIS WAS RI ==OR RO==AND WAS IT ===POA==== Query created by: Rylie Joseph on 05/31/2018 12:25 PM Electronically signed by: Mikel Marc MD 06/01/2018 12:19 PM
== END 2018-05-30 17:15 | disposition home or self-care (01) | DRG 569 ==
LOC: C.ER 21:41 → C.9E 23:12 → C.5S 05-04 14:50
PROVIDERS: ADMIT Internal Medicine; ATTEND Internal Medicine
PROC: 05H933Z Insertion of Infusion Device into Right Brachial Vein, Percutaneous Approach (ICD-10-PCS; principal; 2018-05-14)
DX: N13.6 Pyonephrosis (principal); I33.0 Acute and subacute infective endocarditis; B19.20 Unspecified viral hepatitis C without hepatic coma; I13.2 Hypertensive heart and chronic kidney disease with heart failure and with stage 5 chronic kidney disease, or end stage renal disease; I35.1 Nonrheumatic aortic (valve) insufficiency; I50.9 Heart failure, unspecified; R18.8 Other ascites; N18.6 End stage renal disease; F32.9 Major depressive disorder, single episode, unspecified; F41.9 Anxiety disorder, unspecified; G40.909 Epilepsy, unspecified, not intractable, without status epilepticus; G89.29 Other chronic pain; I25.10 Atherosclerotic heart disease of native coronary artery without angina pectoris; I27.20 Pulmonary hypertension, unspecified; I48.0 Paroxysmal atrial fibrillation; K59.00 Constipation, unspecified; N11.1 Chronic obstructive pyelonephritis; Z86.711 Personal history of pulmonary embolism; F17.210 Nicotine dependence, cigarettes, uncomplicated; Z91.19 Patient's noncompliance with other medical treatment and regimen; Z99.2 Dependence on renal dialysis; D64.9 Anemia, unspecified

== ENCOUNTER 2018-06-06 19:48 | Inpatient (IN) | payer OTHER ==
[2018-06-06 19:49] VITALS: BMI 25.2
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
[2018-06-06 20:50] LABS: BASO # 0.1 K/uL (0.0-0.2); BASO % 1.3 % (0.0-2.0); EOS # 0.1 K/uL (0.0-0.7); EOS % 1.6 % (0.0-4.0); HEMOGLOBIN 10.1 g/dL (12.0-18.0); LYMPH # 1.2 K/uL (1.0-4.3); LYMPH % 28.2 % (20.0-40.0); MEAN CORPUSCULAR HEMOGLOBIN 30.8 pg (27.0-31.0); MEAN CORPUSCULAR HGB CONC 32.1 g/dL (33.0-37.0); MEAN PLATELET VOLUME 7.9 fL (7.2-11.7); MONO # 0.3 K/uL (0.0-0.8); MONO % 6.6 % (0.0-10.0); NEUT # 2.6 K/uL (1.8-7.0); NEUT % 62.3 % (50.0-75.0); RBC 3.27 Mil/uL (4.40-5.90); RED CELL DISTRIBUTION WIDTH 19.1 % (11.5-14.5); WHITE BLOOD COUNT 4.1 K/uL (4.8-10.8)
[2018-06-06 21:00] LABS: INR 1.5; PROTHROMBIN TIME 16.6 SECONDS (9.7-12.2)
[2018-06-06 21:03] LABS: ALB/GLOB RATIO 1.1 (1.0-2.1); ALBUMIN 3.6 g/dL (3.5-5.0); CALCIUM 8.7 mg/dl (8.6-10.4)
[2018-06-06] MEDS ORDERED: Oxycodone/Acetaminophen 5/325 mg Tab PO PRN (22:23)
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
--- NOTE | 2018-06-07 08:12 | RAD ---
Date of service: 06/06/2018 PROCEDURE: CHEST RADIOGRAPH, 1 VIEW HISTORY: SOB COMPARISON: 05/03/2018 FINDINGS: LUNGS: Clear. PLEURA: No pneumothorax or pleural fluid seen. CARDIOVASCULAR: There is absence of aortic atherosclerotic calcification on x-ray. Probable top-normal heart size. OSSEOUS STRUCTURES: Stable deformity lateral right clavicle-likely old trauma-stable in appearance dating back to portable 07/08/2015 chest x-ray VISUALIZED UPPER ABDOMEN: Asymmetrically elevated right hemidiaphragm-similar Relative increased density projecting over the superior left heart border. This is probably artifactual. No accompanying lateral view for further clarification. OTHER FINDINGS: None. IMPRESSION: No acute cardiopulmonary pathology suspect. Relative increased density over superior left heart probably artifactual. Old healed right lateral clavicular fracture with resultant deformity-stable dating back to 2016
[2018-06-07] MEDS: Sevelamer Carb 2.4 gm/Packet PO SCH ×2 (08:40→18:41)
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
[2018-06-07] MEDS ORDERED: cefTRIAXone 1 gm 0 GM/0 ML BAG IVPB ONE (10:41)
[2018-06-07] MEDS ORDERED: Bupivacaine HCl 0.5% PF (30 ml) Inj ONE (12:26)
[2018-06-07] MEDS ORDERED: Propofol 10 mg/ml Inj (20 ML) ONE (12:28)
[2018-06-07] MEDS ORDERED: Midazolam 2 MG/2 ML VIAL ONE ×3 (12:28→16:03)
[2018-06-07] MEDS ORDERED: ceFAZolin 1 gm FROZEN Premix 2 GM/100 ML ML IVPB ONE (13:59)
[2018-06-07] MEDS ORDERED: Vasopressin 20 Units/ml Inj ONE (15:21)
[2018-06-07] MEDS ORDERED: Rocuronium 10 mg/ml (5 ml) ONE (15:23)
[2018-06-07] MEDS ORDERED: Rocuronium 10 mg/ml (10 ml) ONE (15:25)
[2018-06-07 16:14] LABS: HEMOGLOBIN 9.6 g/dL (12.0-18.0); MEAN CELL VOLUME 96.6 fL (80.0-94.0); MEAN CORPUSCULAR HGB CONC 32.1 g/dL (33.0-37.0); MEAN PLATELET VOLUME 7.7 fL (7.2-11.7); RBC 3.1 Mil/uL (4.40-5.90); RED CELL DISTRIBUTION WIDTH 19.3 % (11.5-14.5); WHITE BLOOD COUNT 5.6 K/uL (4.8-10.8)
[2018-06-07] MEDS ORDERED: Morphine 4 MG/ML VIAL ONE (16:24)
[2018-06-07] MEDS ORDERED: Neostigmine Methylsulfate 3mg/3ml Syringe IV ONE (16:27)
[2018-06-07 16:28] LABS: ARTERIAL BLOOD GAS HCO3 26.2 mmol/L (21-28); ARTERIAL BLOOD GAS O2 SAT 99.2 % (95-98); ARTERIAL BLOOD GAS PCO2 43 mm/Hg (35-45); ARTERIAL BLOOD GAS PO2 313 mm/Hg (80-100); ARTERIAL BLOOD GAS TCO2 27.9 mmol/L (22-28)
[2018-06-07] MEDS ORDERED: Acetaminophen IV 1,000 MG in Premixed IV 1 EA IV STA (16:53)
[2018-06-07] MEDS: HYDROmorphone 0.5 mg/0.5 ml ISec IVP PRN ×3 (16:56→17:24)
[2018-06-07] MEDS ORDERED: HYDROmorphone 0.5 mg/0.5 ml ISec ONE (16:58)
[2018-06-07] MEDS ORDERED: Naloxone 0.4 mg/ml Inj (Adult) IVP PRN (17:05)
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
[2018-06-07] MEDS ORDERED: ceFAZolin IV 1 gm in Dextrose 1 GM/50 ML BAG IVPB ONE (17:31)
[2018-06-07 17:48] LABS: BASO % 0.7 % (0.0-2.0); EOS # 0.1 K/uL (0.0-0.7); EOS % 1.1 % (0.0-4.0); HEMOGLOBIN 9.4 g/dL (12.0-18.0); LYMPH # 1.1 K/uL (1.0-4.3); LYMPH % 18.3 % (20.0-40.0); MEAN CELL VOLUME 95.7 fL (80.0-94.0); MEAN CORPUSCULAR HEMOGLOBIN 30.6 pg (27.0-31.0); MEAN CORPUSCULAR HGB CONC 31.9 g/dL (33.0-37.0); MEAN PLATELET VOLUME 7.2 fL (7.2-11.7); MONO # 0.3 K/uL (0.0-0.8); MONO % 4.4 % (0.0-10.0); NEUT # 4.4 K/uL (1.8-7.0); NEUT % 75.5 % (50.0-75.0); RBC 3.06 Mil/uL (4.40-5.90); RED CELL DISTRIBUTION WIDTH 19.2 % (11.5-14.5); WHITE BLOOD COUNT 5.8 K/uL (4.8-10.8)
[2018-06-07 18:17] LABS: ALB/GLOB RATIO 1.1 (1.0-2.1); CALCIUM 8.4 mg/dl (8.6-10.4)
[2018-06-07] MEDS ORDERED: Acetaminophen IV 1,000 MG in Premixed IV 1 EA IV ONE (22:09)
--- NOTE | 2018-06-07 22:33 | CARD ---
APPROVED REPORT Date of service: 06/06/2018 EKG Measurement Heart [id number] <Conclusion> Normal sinus rhythm Possible Left atrial enlargement Borderline ECG
--- NOTE | 2018-06-07 23:18 | CP.PCM.PN ---
Subjective - Subjective Subjective: dictated Objective - Vital Signs/Intake and Output Vital Signs (last 24 hours): Temp Pulse Resp BP Pulse Ox 97.4 F L 86 24 113/43 L 90 L 06/07/18 20:00 06/07/18 21:00 06/07/18 21:00 06/07/18 22:00 06/07/18 21:00 Intake and Output: 06/07/18 06/08/18 18:59 06:59 Intake Total 2575 0 Balance 2575 0 - Medications Medications: Current Medications Alprazolam (Xanax) 0.25 mg PO DAILY PRN PRN Reason: Anxiety Stop: 06/13/18 22:24 Calcium Acetate (Phoslo) 667 mg PO TID [facility] Last Admin: 06/07/18 19:02 Dose: Not Given Calcium Acetate (Phoslo) 667 mg PO BIDCC COUNT [facility]CLUD[facility] Heparin Sodium (Porcine) (Heparin) 5,000 units SC Q8 [facility] Last Admin: 06/07/18 14:57 Dose: Not Given Hydromorphone HCl (Dilaudid) 0.5 mg IVP Q10M PRN PRN Reason: Pain, moderate (4-7) Last Admin: 06/07/18 17:24 Dose: 0.5 mg Hydromorphone/Sodium Chloride (Dilaudid Temporary Office Assistant) 6 mg IV Q4H PRN; Protocol PRN Reason: Pain, moderate (4-7) Last Admin: 06/07/18 18:58 Dose: 6 mg Acetaminophen (Ofirmev) 100 mls @ 400 mls/hr IV DAILY PRN PRN Reason: Fever >100.4 F Mirtazapine (Remeron) 15 mg PO HS COUNT [facility] Naloxone HCl (Narcan) 0.1 mg IVP Q2M PRN PRN Reason: apnea Ondansetron HCl (Zofran Inj) 4 mg IVP DAILY PRN PRN Reason: Nausea/Vomiting Oxycodone/Acetaminophen (Percocet 5/325 Mg Tab) 1 tab PO Q6H PRN PRN Reason: Pain, severe (8-10) Stop: 06/09/18 22:24 Last Admin: 06/07/18 07:04 Dose: 1 tab Sevelamer Carbonate (Renvela) 2.4 gm PO BIDCC COUNT [facility]CLUD[facility] Last Admin: 06/07/18 18:41 Dose: Not Given Sevelamer Carbonate (Renvela) 800 mg PO TIDCC LEE Tamsulosin HCl (Flomax) 0.4 mg PO DAILY COUNT [facility]CLUD[facility] Last Admin: 06/07/18 09:40 Dose: 0.4 mg - Labs Labs: 06/07/18 17:44 06/07/18 17:44 PT 16.6 SECONDS (9.7-12.2) H 06/06/18 20:47 INR 1.5 06/06/18 20:47 APTT 38 SECONDS (21-34) H 06/06/18 20:47
--- NOTE | 2018-06-08 02:43 | HP ---
CHIEF COMPLAINT: The patient is admitted for nephrectomy tomorrow. HISTORY OF PRESENT ILLNESS: This is a 48-year-old male, well known to me, with history of anxiety, depression, hepatitis C, and opiate dependence, who is noncompliant with diet, medication, and followup. The patient has chronic kidney disease on hemodialysis due to bilateral staghorn calculi, status post left-sided nephrectomy in the past, and the patient also has aortic valve incompetence with aortic valve vegetation, and he needs aortic valve replacement, in his usual status of health. He is ambulatory and independent in activities of daily living, and uses heroin in the streets, who came in because of generalized weakness and he is being admitted for elective nephrectomy on the right side and for surgery and for preop clearance. The patient has been admitted. He denies any chest pain, nausea, vomiting, or diarrhea. He has generalized weakness, tiredness, anorexia, malaise, and fatigue. He is anxious. He is depressed. He denies any rectal bleeding. He has nausea, no vomiting. He has bilateral flank pain. He has difficulty upon ambulation. PAST MEDICAL HISTORY: Positive for hepatitis C, opiate dependence, anxiety, depression, CKD on hemodialysis, and bilateral staghorn calculi. SOCIAL HISTORY: Smokes and drinks. FAMILY HISTORY: Not obtainable. PHYSICAL EXAMINATION: GENERAL: A middle-aged male in no acute distress. He is for OR. VITAL SIGNS: Blood pressure 114/67, pulse 90, respiratory rate 16, and temperature 99.7. SKIN: The patient has extensive tattoos all over the skin. No obvious oozes or intravenous drug gallego. HEENT: Atraumatic and normocephalic. Negative pallor. Negative jaundice. Extraocular movements are intact. NECK: Supple. No JVD. CHEST: Has bilateral symmetrical expansion. LUNGS: Clear. CARDIOVASCULAR SYSTEM: S1 and S2 regular. ABDOMEN: Soft, nontender. Bowel sounds are positive. RECTAL: No masses. No bleeding. EXTREMITIES: No clubbing, cyanosis, or edema. CENTRAL NERVOUS SYSTEM: Alert, awake, and oriented x3. ASSESSMENT: 1. Chronic kidney disease, on hemodialysis. 2. Right-sided pyelonephrosis of elective radial nephrectomy. 3. Hepatitis C. 4. Anxiety and depression. 5. Opiate dependence. PLAN: Admit. Cardio evaluation. Mikel Marc MD [facility] # [id number]
--- NOTE | 2018-06-08 02:48 | PN ---
DATE: 06/07/2018 SUBJECTIVE: Patient is for nephrectomy today. He is stable. Medically cleared. Cardiology cleared by Dr. Schultz, so he is for OR today. PHYSICAL EXAMINATION: VITAL SIGNS: Blood pressure 113/43, pulse 86, respiratory rate 24, and temperature 98. LUNGS: Clear. CARDIOVASCULAR SYSTEM: S1 and S2 regular. ABDOMEN: Soft. ASSESSMENT: 1. Nephrolithiasis with right staghorn. Patient is for right-sided radical nephrectomy. 2. Chronic kidney disease, on hemodialysis. 3. Aortic incompetence for possible future aortic valve repair. PLAN: Continue current medication. WBC 5.8, hemoglobin 9.4, hematocrit 29.3, platelets 161. Sodium 136, potassium 4.1, chloride 98, bicarbonate 25, BUN 52, creatinine 0.1. Continue postop care. Monitor the patient. Mikel Marc MD
--- NOTE | 2018-06-08 05:51 | CON ---
DATE: 06/06/2018 UROLOGY CONSULTATION REASON FOR CONSULTATION: Recurrent urinary tract infection, kidney stone disease. HISTORY OF PRESENT ILLNESS: Mr. Frank is a very pleasant gentleman, see the last dictated notes. There are multiple notes dictated and the chart from the patient. It is as follows: The patient is a very pleasant gentleman, I know well, he is a 48-year-old gentleman. When we initially met the patient back a couple of years of ago, he was predialyzed but he was actually at that time extremely in poor medical shape. He was already in renal failure but not yet quite on dialysis. Platelets were very poorly functioning. He was medically very unstable at that point. We met the patient. He had bilateral tremendous stone disease. We had discuss various options. Anyway, we followed the patient for quite sometime. See the many notes and subsequently, we admitted the patient. We treated him percutaneously. We started on the left side. He ended up with a left nephrectomy for various reasons. This was done robotically. Even before that, the patient already started working with his dialysis. From a urology standpoint, then we have been following the patient. He has tremendous heavily stone burden. Now of late, I have been following him on the right side. I had recommended and still recommend the consideration for a percutaneous nephrostolithotomy. However, we had arranged for the intervention radiologist to do a nephrostomy tube but patient was not able to tolerate, and they were not able to get good access. These are all dictated from separate notes. 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 Either way that is all now resolved, but from an urology standpoint, the environmental communications specialist is looking for the patient to have valve surgery but they are not going to replace the valve in the setting of recurrent infection. We know he has a tremendous stone burden. We are not able to clear that. The patient is a very pleasant but not perfectly compliant and also does not able to travel. I discussed with him the option to get any percutaneous treatment elsewhere. So after discussing many options overtime, the decision now is to have a nephrectomy. I had discussed with the patient the risks of nephrectomy. He currently is a dialysis-dependent patient but at least he does get some fluid off, this is going to make him have great fluid restrictions than by removing his kidney. He is well aware of that but he is also interested in improving his overall health status, which we think that we going to do with the nephrectomy. See the plans listed below. Now, he being admitted as an emergency through the emergency room, and he is going to undergo a nephrectomy once get he can get cardiology clearance (see below). Not quite clearance, but we are just trying to see if we can optimize his condition and also to see and assess the risk and if there is the way to diminish the risk for any embolic events to occur given his chronic condition. From urology standpoint, we are even planning a nephrectomy. We just have to make the timing. The patient has recently been in the hospital for quite some from 05/04/2018 till the May. I discussed various options with the patient. I am including my recommendations to consider percutaneous treatments, if not by me elsewhere, because they were not able to get nephrostomy tube access. So we did not even have to retract the dilator, and the patient is not willing to try again. Once we discussed the idea of a nephrectomy, which is now what he is going to have, see the plans listed below, we discussed the occasions for such procedure. We discussed at length my recommendations to consider robotic training. See the plans listed below because that is not happening for the patient The past medical and surgical is all listed on the chart, otherwise, unremarkable. There is nothing else from urology standpoint. Socially, he has girl friend/ that comes to visit him often. He is currently not working. Review of systems: Listed above. Otherwise, essentially, noncontributory. No interim problems. MEDICATIONS: See chart. ALLERGY: SEE CHART Since our initial meeting with the patient, I have been following him for quite some time. PHYSICAL EXAMINATION: GENERAL: Well nourished male, currently in no apparent distress. Actually, his body is much improved in body habitus. VITAL SIGNS: Within normal limits, included in the chart. LUNGS: Clear. ABDOMEN: Soft, nontender. Not grossly distended. The incision is still in the healing stage. It is a midline incision. See plan the just below at the end of this consult note. Normal phallus without discharge. No testicular mass. I do want to make a comment, he has a tattoo on his phallus. The CT scan, x-rays, ultrasound, all noted in the chart. Labs are noted. DIAGNOSES: 1. Severe heavy stone burden disease. 2. Recurrent infections. 3. Persistent stone disease. 4. Renal failure. 5. Status post nephrectomy. 6. Multiple medical issues. PLAN: Very pleasant gentleman with the above history. We discussed the options, he is only 48 years old. He is looking to have his cardiac surgery and is mostly done while he has infections. So we discussed the options at length including risks, benefits, and the alternatives. We also discussed the second opinion and third opinions. We discussed transfer to [facility]. The patient actually wants me to continue with my intervention and would like me to take care of him. I told this to the patient that by general guidelines for robotic surgery that I can do an open nephrectomy, and I am happy to help him and that is going to be the plan now. So the plan is as follows: 1. We will provide antibiotic prophylaxis. 2. We are going to do an exploration at the right kidney. We have gone and used a flank incision given his medical history and surgical history. We are going to just await cardiac clearance to optimize his situation and to decrease the risk for an embolic event as best as possible. Further plans, we will follow. Plan is as follows, patient to the OR, soon is to get cardiology, hopefully we will do it on 06/07/2018. Thank you for the urology consultation. Celso Ferro MD
[2018-06-08 06:02] LABS: ARTERIAL BLOOD GAS HCO3 25.8 mmol/L (21-28); ARTERIAL BLOOD GAS HEMOGLOBIN 9.9 g/dL (11.7-17.4); ARTERIAL BLOOD GAS O2 SAT 97.2 % (95-98); ARTERIAL BLOOD GAS PCO2 41 mm/Hg (35-45); ARTERIAL BLOOD GAS PH 7.41 (7.35-7.45); ARTERIAL BLOOD GAS PO2 86 mm/Hg (80-100); ARTERIAL BLOOD GAS TCO2 27.3 mmol/L (22-28)
[2018-06-08 06:26] LABS: BASO % 0.7 % (0.0-2.0); EOS % 0.3 % (0.0-4.0); HEMOGLOBIN 9.9 g/dL (12.0-18.0); LYMPH # 0.8 K/uL (1.0-4.3); LYMPH % 14.2 % (20.0-40.0); MEAN CELL VOLUME 95.7 fL (80.0-94.0); MEAN CORPUSCULAR HEMOGLOBIN 31.2 pg (27.0-31.0); MEAN CORPUSCULAR HGB CONC 32.5 g/dL (33.0-37.0); MEAN PLATELET VOLUME 8.5 fL (7.2-11.7); MONO # 0.3 K/uL (0.0-0.8); MONO % 5.4 % (0.0-10.0); NEUT # 4.3 K/uL (1.8-7.0); NEUT % 79.4 % (50.0-75.0); RBC 3.18 Mil/uL (4.40-5.90); RED CELL DISTRIBUTION WIDTH 19.2 % (11.5-14.5); WHITE BLOOD COUNT 5.4 K/uL (4.8-10.8)
[2018-06-08 06:42] LABS: ALBUMIN 3.2 g/dL (3.5-5.0); CALCIUM 9.1 mg/dl (8.6-10.4)
[2018-06-08] MEDS: Sevelamer Carb 2.4 gm/Packet PO SCH ×2 (08:00→18:33)
[2018-06-08] MEDS ORDERED: Oxycodone/Acetaminophen 5/325 mg Tab PO PRN (09:38)
--- NOTE | 2018-06-08 10:18 | OP ---
PROCEDURE DATE: 06/07/2018 PREOPERATIVE DIAGNOSES: Recurrent urinary tract infection, recalcitrant stone disease, renal failure, status post a left nephrectomy, infected cardiac valve, multiple medical issues. POSTOPERATIVE DIAGNOSIS: Recurrent urinary tract infection, recalcitrant stone disease, renal failure, status post a left nephrectomy, infected cardiac valve, multiple medical issues. PROCEDURE: An open nephrectomy on the right side and removal of stones from the kidney and removal of the right double-J stent. COMPLICATIONS: There were no complications. ESTIMATED BLOOD LOSS: About 250 mL. DRAIN: We left two Diane drains. The procedure is an open nephrectomy through a twelfth rib incision. SPECIMENS SENT DOWN: Twelfth rib ureteral stent, renal calculi, and the kidney itself. MAIN SURGEON: Celso Ferro MD REPAIR ELECTRIC MOTOR ASSEMBLER SURGEON: Bijan Ford DO, and Kashmir Miranda MD INDICATIONS: See history and physical and consultation, but in brief, he is a very pleasant gentleman I know quite well. Multiple medical issues. Now, he has recurrent infections in his urinary system and also cardiac valves, and he is expecting a cardiothoracic valve replacement surgery, but they would not do it in the phase of recurrent infections. We tried treating infections by getting rid of the stones and by removing the stones. We tried this both endoscopically with the ureteroscope. We tried percutaneously. See many many chart notes and see even the consultation note, but after much do, the patient is now here for the above procedure. I did discuss with him being a nephric to really limit his fluids. Although now he gets dialysis three times a week, he still does put out some "water" out of the kidney that is urine/ water, but at least he is able to get something out and now will be much more dependent on his dialysis for removal of fluids. That being said, we tried every option available and perhaps even after he gets in some better shape, he is only 48 years old, he will be a candidate in the future for a transplant. That will have to be discussion of the team. From Urology standpoint, we are doing the above-listed procedure. I just spent a long time with the patient. We discussed options. I even had recommended a robotic surgeon. He had his left kidney removed robotically. But for various reasons, he does want to go back. He wants me to take care of him, and I also do not want to deny that patient's care. After discussing all the options, he is here now for the above the procedure. I do want to mention the procedure in the operative report itself that there was tremendous amounts of adhesions. The planes were difficult to dissect, and the reason to mention all these besides in the report itself is that it is noteworthy. Specifically what I mean is that there is evidence that this was a much more infected system than we appreciated and probably would not have gotten better in the absence of the removal. That being said, also want to say that in preparation, we have a armhole sewer seeing the patient, who certainly put the patient at extremely great risk. We had asked them not just for the risk but we know that the risk is high, but if there is any optimization that we could recommend or do. After discussing all those things, the patient is now here for the above-listed procedure itself. After obtaining the informed consent and risks, benefits, and treatment alternatives at length, we are doing an open procedure, not a robotic and we discussed many many options. The patient is now here for a right nephrectomy. DESCRIPTION OF PROCEDURE: The patient was brought to the OR and placed on the table. Routine monitors were placed. Time-out was called to confirm the patient, etc. After the patient was intubated, we now positioned the patient with the right flank up. We put the lower extremity in a flexion. We put the upper thigh in a stretch mode and secured it in position. We broke the kidney brake and elevated the cable and flexed it put a maximum stretch on the kidney as best as possible. We mapped out our twelfth rib. We gave discussion and gave thought to insertion of a King, but indication at this point. The patient is basically tentatively, anephric at this point and then we could discuss further options in the future in terms of bladder emptying capacity. With the patient positioned properly, we now called the new set of timeouts, and everybody is on board. We did our skin markings to the twelfth rib and the iliac crest and we just engaged our incision towards the midline. We made a midline incision sharply, slowly, and cautiously. We went through the underlying after the subcu and underneath the external oblique, internal oblique, and split across the transverse. With it still a little bit intact, we now turned our attention to the twelfth rib, we resected this. I just started to work our way anteriorly. Free of peritoneal cavity, with the peritoneal cavity all time, I do want to mention that we also stayed out of lung the entire time. We could see what would then take us a long time for dissection. We had good visualization. We just worked our way superiorly, inferiorly, and posteriorly, kept going a little bit at this time. We had freed up ourselves posteriorly, off the spine, off the psoas. Once we had freed the kidney posteriorly, inferiorly, and superiorly, we now approached the hilum. I want to mention at this point that we could feel the artery but it is relatively small. Now we worked our way towards medially and towards the hilum. I do want to mention that the kidney itself was really, there were multiple cysts noted and it is that the weakened kidney. The hilum was like very stuck. But even posteriorly and superiorly, it was somewhat difficult to dissect out. At this point, in fact just to confirm where we were, because the color of the kidney was not so typical in that maroon color, that was more white, we have to open the kidney to discover the stones and confirm. With the deliberate intention to confirm where we were, maybe free it up a little more. We also at that time identified stone and removed some of them. We identified the stent which guided up a little bit more towards the hilum. We now turned our attention towards the hilum that we had better access, and we identified the renal vein and the renal artery. Once we did this, we carefully and slowly out the arteries and vein, and we did and we used silk ties and sutures to isolate the renal artery and vein. We put about four total fiber sutures on the patient's side, one on the kidney removal side the arteries and then vein. Once we did this, now basically the entire kidney was free other than ureter where the ureteral stent was. We pulled up the stent. We sent it off to the labs. We now transected the ureter, tied it with a silk, which we put up a little long and for the future. We removed the kidney. We irrigated copiously with no further bleeding. Once we did this, we now turned our attention towards our closure. We inspected carefully. We used some FloSeal for the patient, particularly in this case given his renal failure and platelets etc. Now comes our attention towards the closure and closed in layers using interrupted [id number] PDS. We returned the kidney once we put all the sutures and we put the kidney back to anatomic position. We secured our position. We left two Kamrar drains. I want to mention that we overinflated the lungs with positive pressure. There is no leaking. There is no bleeding, no leaking. We are not in the peritoneal cavity. We are not in the lungs and we completed our closure. We used a little Marcaine on the skin. We applied dry sterile dressing. The patient tolerated the procedure without complication. ADDENDUM: We put the patient to the ICU for observing closely and then make further plan. Celso Ferro MD
--- NOTE | 2018-06-08 10:22 | CP.CCUPN ---
<Nancy Gorman - Last Filed: 06/08/18 10:27> CCU Subjective - Physician Review Subjective (Free Text): 06/08/18 10:22 ICU Consult Note for Dr. Marcel Serna Patient seen and examined at bedside this morning. Patient still with post-op pain POD1. Patient was reluctant to have medical staff examine his arnold catheter since it still hurts when he moves. Otherwise 12 point ROS negative. Patient stable to transfer out of ICU. Orders placed. CCU Objective - Vital Signs / Intake & Output Intake and Output (Last 8hrs): Intake & Output 06/07/18 06/08/18 06/08/18 22:59 06:59 14:59 Intake Total 475 145.8 Balance 475 145.8 Intake: IV 150 Intake, IV Amount 0 145.8 Right Forearm 0 0 Right Hand 0 145.8 Oral 0 Blood Product 325 - Physical Exam Head: Positive for: Atraumatic, Normocephalic Conjunctiva: Positive for: Normal Respiratory/Chest: Positive for: Decreased Breath Sounds (crescendo decrescendo murmur most notable on right upper sternal border). Negative for: Respiratory Distress Abdomen: Positive for: Tenderness (on and around right flank). Negative for: Distention Upper Extremity: Positive for: Normal Inspection, NORMAL PULSES, Capillary Refill < 2s. Negative for: Edema Lower Extremity: Positive for: Normal Inspection. Negative for: CALF TENDERNESS, Sandie's Sign, Swelling Neurological: Positive for: Speech Normal Skin: Positive for: Other (surgical dressing right flank c/d/i) Psychiatric: Positive for: Alert, Oriented x 3 - Medications Active Medications: Active Medications Generic Name Dose Route Start Last Admin Trade Name Freq PRN Reason Stop Dose Admin Alprazolam 0.25 mg 06/06/18 22:23 Xanax PO 06/13/18 22:24 DAILY PRN Anxiety Calcium Acetate 667 mg 06/07/18 10:00 06/07/18 19:02 Phoslo PO Not Given TID LEE Heparin Sodium (Porcine) 5,000 units 06/07/18 06:00 06/07/18 14:57 Heparin SC Not Given Q8 LEE Hydromorphone/Sodium Chloride 6 mg 06/08/18 09:32 Dilaudid Hospital Attendant IV Q4H PRN Pain, severe (8-10) Protocol Mirtazapine 15 mg 12/28/18 22:30 Remeron PO HS LEE Naloxone HCl 0.1 mg 06/07/18 17:05 Narcan IVP Q2M PRN apnea Ondansetron HCl 4 mg 06/07/18 17:41 Zofran Inj IVP DAILY PRN Nausea/Vomiting Oxycodone/Acetaminophen 2 tab 06/08/18 09:38 Percocet 5/325 Mg Tab PO 06/09/18 22:24 Q6H PRN Pain, severe (8-10) Sevelamer Carbonate 2.4 gm 06/07/18 08:00 06/07/18 18:41 Renvela PO Not Given BIDCC LEE Tamsulosin HCl 0.4 mg 06/07/18 10:00 06/07/18 09:40 Flomax PO 0.4 mg DAILY LEE Administration - Patient Studies Lab Studies: Lab Studies 06/08/18 06/08/18 06/08/18 Range/Units 06:10 06:10 05:14 WBC 5.4 (4.8-10.8) K/uL RBC 3.18 L (4.40-5.90) Mil/uL Hgb 9.9 L (12.0-18.0) g/dL Hct 30.5 L (35.0-51.0) % MCV 95.7 H (80.0-94.0) fL MCH 31.2 H (27.0-31.0) pg MCHC 32.5 L (33.0-37.0) g/dL RDW 19.2 H (11.5-14.5) % Plt Count 170 (130-400) K/uL MPV 8.5 (7.2-11.7) fL Neut % (Auto) 79.4 H (50.0-75.0) % Lymph % (Auto) 14.2 L (20.0-40.0) % Ross % (Auto) 5.4 (0.0-10.0) % Eos % (Auto) 0.3 (0.0-4.0) % Baso % (Auto) 0.7 (0.0-2.0) % Neut # (Auto) 4.3 (1.8-7.0) K/uL Lymph # (Auto) 0.8 L (1.0-4.3) K/uL Ross # (Auto) 0.3 (0.0-0.8) K/uL Eos # (Auto) 0.0 (0.0-0.7) K/uL Baso # (Auto) 0.0 (0.0-0.2) K/uL Puncture Site Luz pCO2 41 (35-45) mm/Hg pO2 86 (80-100) mm/Hg HCO3 25.8 (21-28) mmol/L ABG pH 7.41 (7.35-7.45) ABG Total CO2 27.3 (22-28) mmol/L ABG O2 Saturation 97.2 (95-98) % ABG Base Excess 1.2 (-2.0-3.0) mmol/L ABG Hemoglobin 9.9 L (11.7-17.4) g/dL ABG Carboxyhemoglobin 2.5 H (0.5-1.5) % POC ABG HHb (Measured) 2.7 (0.0-5.0) % ABG Methemoglobin 1.1 (0.0-3.0) % Maykel Test Na ABG Potassium (3.6-5.2) mmol/L Hgb O2 Saturation 93.7 L (95.0-98.0) % Sodium 134 (132-148) mmol/l Chloride 94 L (98-107) mmol/L Glucose (75-110) mg/dl Lactate (0.7-2.1) mmol/L Liter Flow 3.0 Potassium 4.7 (3.6-5.2) mmol/L Carbon Dioxide 26 (22-30) mmol/L Anion Gap 18 (10-20) BUN 58 H (9-20) mg/dL Creatinine 8.9 H* (0.8-1.5) mg/dL Est GFR ( Amer) 8 Est GFR (Non-Af Amer) 6 Random Glucose 97 (75-110) mg/dL Calcium 9.1 (8.6-10.4) mg/dl Phosphorus 6.4 H (2.5-4.5) mg/dL Magnesium 1.9 (1.6-2.3) mg/dL Total Bilirubin 0.7 (0.2-1.3) mg/dL AST 19 (17-59) U/L ALT 12 L D (21-72) U/L Alkaline Phosphatase 159 H (38-126) U/L Total Protein 6.3 (6.3-8.3) g/dL Albumin 3.2 L (3.5-5.0) g/dL Globulin 3.2 (2.2-3.9) gm/dL Albumin/Globulin Ratio 1.0 (1.0-2.1) Arterial Blood Potassium (3.6-5.2) mmol/L Blood Type Antibody Screen 06/07/18 06/07/18 06/07/18 Range/Units 17:44 17:44 16:24 WBC 5.8 (4.8-10.8) K/uL RBC 3.06 L (4.40-5.90) Mil/uL Hgb 9.4 L (12.0-18.0) g/dL Hct 29.3 L (35.0-51.0) % MCV 95.7 H (80.0-94.0) fL MCH 30.6 (27.0-31.0) pg MCHC 31.9 L (33.0-37.0) g/dL RDW 19.2 H (11.5-14.5) % Plt Count 161 (130-400) K/uL MPV 7.2 (7.2-11.7) fL Neut % (Auto) 75.5 H (50.0-75.0) % Lymph % (Auto) 18.3 L (20.0-40.0) % Ross % (Auto) 4.4 (0.0-10.0) % Eos % (Auto) 1.1 (0.0-4.0) % Baso % (Auto) 0.7 (0.0-2.0) % Neut # (Auto) 4.4 (1.8-7.0) K/uL Lymph # (Auto) 1.1 (1.0-4.3) K/uL Ross # (Auto) 0.3 (0.0-0.8) K/uL Eos # (Auto) 0.1 (0.0-0.7) K/uL Baso # (Auto) 0.0 (0.0-0.2) K/uL Puncture Site Drawn by pCO2 43 (35-45) mm/Hg pO2 313 H (80-100) mm/Hg HCO3 26.2 (21-28) mmol/L ABG pH 7.40 (7.35-7.45) ABG Total CO2 27.9 (22-28) mmol/L ABG O2 Saturation 99.2 H (95-98) % ABG Base Excess 1.5 (-2.0-3.0) mmol/L ABG Hemoglobin (11.7-17.4) g/dL ABG Carboxyhemoglobin (0.5-1.5) % POC ABG HHb (Measured) (0.0-5.0) % ABG Methemoglobin (0.0-3.0) % Maykel Test Na ABG Potassium 4.4 (3.6-5.2) mmol/L Hgb O2 Saturation (95.0-98.0) % Sodium 136 135.0 (132-148) mmol/l Chloride 98 101.0 (98-107) mmol/L Glucose 139 H (75-110) mg/dl Lactate 1.3 (0.7-2.1) mmol/L Liter Flow Potassium 4.1 (3.6-5.2) mmol/L Carbon Dioxide 25 (22-30) mmol/L Anion Gap 17 (10-20) BUN 52 H (9-20) mg/dL Creatinine 8.1 H* (0.8-1.5) mg/dL Est GFR ( Amer) 9 Est GFR (Non-Af Amer) 7 Random Glucose 119 H (75-110) mg/dL Calcium 8.4 L (8.6-10.4) mg/dl Phosphorus 5.4 H (2.5-4.5) mg/dL Magnesium 1.8 (1.6-2.3) mg/dL Total Bilirubin 0.8 (0.2-1.3) mg/dL AST 17 (17-59) U/L ALT 18 L D (21-72) U/L Alkaline Phosphatase 155 H (38-126) U/L Total Protein 5.9 L (6.3-8.3) g/dL Albumin 3.0 L (3.5-5.0) g/dL Globulin 2.9 (2.2-3.9) gm/dL Albumin/Globulin Ratio 1.1 (1.0-2.1) Arterial Blood Potassium 4.4 (3.6-5.2) mmol/L Blood Type Antibody Screen 06/07/18 06/07/18 Range/Units 16:11 11:49 WBC 5.6 (4.8-10.8) K/uL RBC 3.10 L (4.40-5.90) Mil/uL Hgb 9.6 L (12.0-18.0) g/dL Hct 29.9 L (35.0-51.0) % MCV 96.6 H (80.0-94.0) fL MCH 31.0 (27.0-31.0) pg MCHC 32.1 L (33.0-37.0) g/dL RDW 19.3 H (11.5-14.5) % Plt Count 164 (130-400) K/uL MPV 7.7 (7.2-11.7) fL Neut % (Auto) (50.0-75.0) % Lymph % (Auto) (20.0-40.0) % Ross % (Auto) (0.0-10.0) % Eos % (Auto) (0.0-4.0) % Baso % (Auto) (0.0-2.0) % Neut # (Auto) (1.8-7.0) K/uL Lymph # (Auto) (1.0-4.3) K/uL Ross # (Auto) (0.0-0.8) K/uL Eos # (Auto) (0.0-0.7) K/uL Baso # (Auto) (0.0-0.2) K/uL Puncture Site pCO2 (35-45) mm/Hg pO2 (80-100) mm/Hg HCO3 (21-28) mmol/L ABG pH (7.35-7.45) ABG Total CO2 (22-28) mmol/L ABG O2 Saturation (95-98) % ABG Base Excess (-2.0-3.0) mmol/L ABG Hemoglobin (11.7-17.4) g/dL ABG Carboxyhemoglobin (0.5-1.5) % POC ABG HHb (Measured) (0.0-5.0) % ABG Methemoglobin (0.0-3.0) % Maykel Test ABG Potassium (3.6-5.2) mmol/L Hgb O2 Saturation (95.0-98.0) % Sodium (132-148) mmol/l Chloride (98-107) mmol/L Glucose (75-110) mg/dl Lactate (0.7-2.1) mmol/L Liter Flow Potassium (3.6-5.2) mmol/L Carbon Dioxide (22-30) mmol/L Anion Gap (10-20) BUN (9-20) mg/dL Creatinine (0.8-1.5) mg/dL Est GFR ( Amer) Est GFR (Non-Af Amer) Random Glucose (75-110) mg/dL Calcium (8.6-10.4) mg/dl Phosphorus (2.5-4.5) mg/dL Magnesium (1.6-2.3) mg/dL Total Bilirubin (0.2-1.3) mg/dL AST (17-59) U/L ALT (21-72) U/L Alkaline Phosphatase (38-126) U/L Total Protein (6.3-8.3) g/dL Albumin (3.5-5.0) g/dL Globulin (2.2-3.9) gm/dL Albumin/Globulin Ratio (1.0-2.1) Arterial Blood Potassium (3.6-5.2) mmol/L Blood Type O POSITIVE Antibody Screen Negative Laboratory Results - last 24 hr 06/07/18 06/07/18 06/07/18 11:49 16:11 16:24 WBC 5.6 RBC 3.10 L Hgb 9.6 L Hct 29.9 L MCV 96.6 H MCH 31.0 MCHC 32.1 L RDW 19.3 H Plt Count 164 MPV 7.7 Neut % (Auto) Lymph % (Auto) Ross % (Auto) Eos % (Auto) Baso % (Auto) Neut # (Auto) Lymph # (Auto) Ross # (Auto) Eos # (Auto) Baso # (Auto) Puncture Site Drawn by pCO2 43 pO2 313 H HCO3 26.2 ABG pH 7.40 ABG Total CO2 27.9 ABG O2 Saturation 99.2 H ABG Base Excess 1.5 ABG Hemoglobin ABG Carboxyhemoglobin POC ABG HHb (Measured) ABG Methemoglobin Maykel Test Na ABG Potassium 4.4 Hgb O2 Saturation Sodium 135.0 Chloride 101.0 Glucose 139 H Lactate 1.3 Liter Flow Potassium Carbon Dioxide Anion Gap BUN Creatinine Est GFR ( Amer) Est GFR (Non-Af Amer) Random Glucose Calcium Phosphorus Magnesium Total Bilirubin AST ALT Alkaline Phosphatase Total Protein Albumin Globulin Albumin/Globulin Ratio Arterial Blood Potassium 4.4 Blood Type O POSITIVE Antibody Screen Negative 06/07/18 06/07/18 06/08/18 17:44 17:44 05:14 WBC 5.8 RBC 3.06 L Hgb 9.4 L Hct 29.3 L MCV 95.7 H MCH 30.6 MCHC 31.9 L RDW 19.2 H Plt Count 161 MPV 7.2 Neut % (Auto) 75.5 H Lymph % (Auto) 18.3 L Ross % (Auto) 4.4 Eos % (Auto) 1.1 Baso % (Auto) 0.7 Neut # (Auto) 4.4 Lymph # (Auto) 1.1 Ross # (Auto) 0.3 Eos # (Auto) 0.1 Baso # (Auto) 0.0 Puncture Site [place] pCO2 41 pO2 86 HCO3 25.8 ABG pH 7.41 ABG Total CO2 27.3 ABG O2 Saturation 97.2 ABG Base Excess 1.2 ABG Hemoglobin 9.9 L ABG Carboxyhemoglobin 2.5 H POC ABG HHb (Measured) 2.7 ABG Methemoglobin 1.1 Maykel Test Na ABG Potassium Hgb O2 Saturation 93.7 L Sodium 136 Chloride 98 Glucose Lactate Liter Flow 3.0 Potassium 4.1 Carbon Dioxide 25 Anion Gap 17 BUN 52 H Creatinine 8.1 H* Est GFR ( Amer) 9 Est GFR (Non-Af Amer) 7 Random Glucose 119 H Calcium 8.4 L Phosphorus 5.4 H Magnesium 1.8 Total Bilirubin 0.8 AST 17 ALT 18 L D Alkaline Phosphatase 155 H Total Protein 5.9 L Albumin 3.0 L Globulin 2.9 Albumin/Globulin Ratio 1.1 Arterial Blood Potassium Blood Type Antibody Screen 06/08/18 06/08/18 06:10 06:10 WBC 5.4 RBC 3.18 L Hgb 9.9 L Hct 30.5 L MCV 95.7 H MCH 31.2 H MCHC 32.5 L RDW 19.2 H Plt Count 170 MPV 8.5 Neut % (Auto) 79.4 H Lymph % (Auto) 14.2 L Ross % (Auto) 5.4 Eos % (Auto) 0.3 Baso % (Auto) 0.7 Neut # (Auto) 4.3 Lymph # (Auto) 0.8 L Ross # (Auto) 0.3 Eos # (Auto) 0.0 Baso # (Auto) 0.0 Puncture Site pCO2 pO2 HCO3 ABG pH ABG Total CO2 ABG O2 Saturation ABG Base Excess ABG Hemoglobin ABG Carboxyhemoglobin POC ABG HHb (Measured) ABG Methemoglobin Maykel Test ABG Potassium Hgb O2 Saturation Sodium 134 Chloride 94 L Glucose Lactate Liter Flow Potassium 4.7 Carbon Dioxide 26 Anion Gap 18 BUN 58 H Creatinine 8.9 H* Est GFR ( Amer) 8 Est GFR (Non-Af Amer) 6 Random Glucose 97 Calcium 9.1 Phosphorus 6.4 H Magnesium 1.9 Total Bilirubin 0.7 AST 19 ALT 12 L D Alkaline Phosphatase 159 H Total Protein 6.3 Albumin 3.2 L Globulin 3.2 Albumin/Globulin Ratio 1.0 Arterial Blood Potassium Blood Type Antibody Screen Critical Care Progress Note - Nutrition Nutrition: Nutrition Category Date Time Status Regular Diet [DIET] Diets 06/08/18 Breakfast Active Assessment/Plan - Assessment and Plan (Free Text) Assessment: 48 y/o male with PMHx of ESRD, right kidney mass, recurrent nephrolithiasis and infections, and anxiety presents to the ICU directly from PACU s/p right radical nephrectomy by Dr. Estella Ferro POD1. Patient still complaining of surgical pain. Patient currently hemodynamically stable in the ICU. Transfer to Medicine today. Neuro -AAOx3, but patient in pain -no acute issues CV -currently not on home HTN meds -hx of aortic valve endocarditis (see previous notes Dr. Schultz who cleared him for surgery moderate cardiac risk) -monitor VS Pulm -patient is a smoker -maintain spo2 > 92%, use ordered 2L NC as needed and titrate as needed -encourage incentive spirometer GI -no acute issues Renal -s/p right radical nephrectomy -Dr. Ferro following, appreciate recs -continue with previously ordered dilaudid [employer] pump for pain -antiemetics zofran PRN for nausea -tylenol PRN for fever > 100.4F -Dr. Garth following due to patient's known ESRD on HD MWF, appreciate recs -continue with home flomax -continue with home phoslo and sevelamer -> monitor lytes -no carrasco cath due to inability to urinate (patient "urinates" with dialysis MWF) Heme -monitor H/H - currently stable -no acute issues Psych -continue with previously rx xanax -continue with home med mirtazapine qhs DVT ppx: hold due to risk of post-op bleeding (previously on heparin 5000 units sq q8h) GI ppx: not indicated Diet: Regular case discussed with Dr. Marcel Gorman PGY1 <Garrick Serna - Last Filed: 06/08/18 15:51> CCU Objective - Vital Signs / Intake & Output Vital Signs (Last 4 hours): Vital Signs Temp Pulse Pulse Resp BP Pulse Ox 06/08/18 14:00 97.8 F 88 88 16 122/45 L 96 06/08/18 13:30 122/46 L 06/08/18 13:00 88 19 125/47 L 96 06/08/18 12:30 129/50 L 06/08/18 12:00 89 21 132/48 L 95 Intake and Output (Last 8hrs): Intake & Output 06/08/18 06/08/18 06/08/18 06:59 14:59 22:59 Intake Total 145.8 340 Balance 145.8 340 Weight 200 lb 6.403 oz Intake: Intake, IV Amount 145.8 Right Forearm 0 Right Hand 145.8 Oral 340 Other: # Voids Urine, Voided 0 # Bowel Movements 0 - Medications Active Medications: Active Medications Generic Name Dose Route Start Last Admin Trade Name Freq PRN Reason Stop Dose Admin Alprazolam 0.25 mg 06/06/18 22:23 Xanax PO 06/13/18 22:24 DAILY PRN Anxiety Calcium Acetate 667 mg 06/07/18 10:00 06/07/18 19:02 Phoslo PO Not Given TID LEE Ferric Sodium Gluconate Complex 125 mg 06/08/18 13:00 Ferrlecit IVPB 06/16/18 13:01 DAILY LEE Heparin Sodium (Porcine) 5,000 units 06/07/18 06:00 06/07/18 14:57 Heparin SC Not Given Q8 LEE Hydromorphone/Sodium Chloride 6 mg 06/08/18 09:32 06/08/18 10:58 Dilaudid Hospital Attendant IV 6 mg Q4H PRN Administration Pain, severe (8-10) Protocol Mirtazapine 15 mg 06/08/18 22:30 Remeron PO HS LEE Naloxone HCl 0.1 mg 06/07/18 17:05 Narcan IVP Q2M PRN apnea Ondansetron HCl 4 mg 06/07/18 17:41 Zofran Inj IVP DAILY PRN Nausea/Vomiting Oxycodone/Acetaminophen 2 tab 06/08/18 09:38 Percocet 5/325 Mg Tab PO 06/09/18 22:24 Q6H PRN Pain, severe (8-10) Pantoprazole Sodium 40 mg 06/09/18 10:00 Protonix Ec Tab PO DAILY LEE Sevelamer Carbonate 2.4 gm 06/07/18 08:00 06/07/18 18:41 Renvela PO Not Given BIDCC LEE Tamsulosin HCl 0.4 mg 06/07/18 10:00 06/08/18 11:17 Flomax PO 0.4 mg DAILY LEE Administration Vitamin A 1 ea 06/08/18 18:00 Vitamin A & D Oint Ud Foilpak TOP BID LEE - Patient Studies Lab Studies: Lab Studies 06/08/18 06/08/18 06/08/18 Range/Units 06:10 06:10 05:14 WBC 5.4 (4.8-10.8) K/uL RBC 3.18 L (4.40-5.90) Mil/uL Hgb 9.9 L (12.0-18.0) g/dL Hct 30.5 L (35.0-51.0) % MCV 95.7 H (80.0-94.0) fL MCH 31.2 H (27.0-31.0) pg MCHC 32.5 L (33.0-37.0) g/dL RDW 19.2 H (11.5-14.5) % Plt Count 170 (130-400) K/uL MPV 8.5 (7.2-11.7) fL Neut % (Auto) 79.4 H (50.0-75.0) % Lymph % (Auto) 14.2 L (20.0-40.0) % Ross % (Auto) 5.4 (0.0-10.0) % Eos % (Auto) 0.3 (0.0-4.0) % Baso % (Auto) 0.7 (0.0-2.0) % Neut # (Auto) 4.3 (1.8-7.0) K/uL Lymph # (Auto) 0.8 L (1.0-4.3) K/uL Ross # (Auto) 0.3 (0.0-0.8) K/uL Eos # (Auto) 0.0 (0.0-0.7) K/uL Baso # (Auto) 0.0 (0.0-0.2) K/uL Puncture Site Luz pCO2 41 (35-45) mm/Hg pO2 86 (80-100) mm/Hg HCO3 25.8 (21-28) mmol/L ABG pH 7.41 (7.35-7.45) ABG Total CO2 27.3 (22-28) mmol/L ABG O2 Saturation 97.2 (95-98) % ABG Base Excess 1.2 (-2.0-3.0) mmol/L ABG Hemoglobin 9.9 L (11.7-17.4) g/dL ABG Carboxyhemoglobin 2.5 H (0.5-1.5) % POC ABG HHb (Measured) 2.7 (0.0-5.0) % ABG Methemoglobin 1.1 (0.0-3.0) % Maykel Test Na ABG Potassium (3.6-5.2) mmol/L Hgb O2 Saturation 93.7 L (95.0-98.0) % Sodium 134 (132-148) mmol/l Chloride 94 L (98-107) mmol/L Glucose (75-110) mg/dl Lactate (0.7-2.1) mmol/L Liter Flow 3.0 Potassium 4.7 (3.6-5.2) mmol/L Carbon Dioxide 26 (22-30) mmol/L Anion Gap 18 (10-20) BUN 58 H (9-20) mg/dL Creatinine 8.9 H* (0.8-1.5) mg/dL Est GFR ( Amer) 8 Est GFR (Non-Af Amer) 6 Random Glucose 97 (75-110) mg/dL Calcium 9.1 (8.6-10.4) mg/dl Phosphorus 6.4 H (2.5-4.5) mg/dL Magnesium 1.9 (1.6-2.3) mg/dL Total Bilirubin 0.7 (0.2-1.3) mg/dL AST 19 (17-59) U/L ALT 12 L D (21-72) U/L Alkaline Phosphatase 159 H (38-126) U/L Total Protein 6.3 (6.3-8.3) g/dL Albumin 3.2 L (3.5-5.0) g/dL Globulin 3.2 (2.2-3.9) gm/dL Albumin/Globulin Ratio 1.0 (1.0-2.1) Arterial Blood Potassium (3.6-5.2) mmol/L Blood Type Antibody Screen 06/07/18 06/07/18 06/07/18 Range/Units 17:44 17:44 16:24 WBC 5.8 (4.8-10.8) K/uL RBC 3.06 L (4.40-5.90) Mil/uL Hgb 9.4 L (12.0-18.0) g/dL Hct 29.3 L (35.0-51.0) % MCV 95.7 H (80.0-94.0) fL MCH 30.6 (27.0-31.0) pg MCHC 31.9 L (33.0-37.0) g/dL RDW 19.2 H (11.5-14.5) % Plt Count 161 (130-400) K/uL MPV 7.2 (7.2-11.7) fL Neut % (Auto) 75.5 H (50.0-75.0) % Lymph % (Auto) 18.3 L (20.0-40.0) % Ross % (Auto) 4.4 (0.0-10.0) % Eos % (Auto) 1.1 (0.0-4.0) % Baso % (Auto) 0.7 (0.0-2.0) % Neut # (Auto) 4.4 (1.8-7.0) K/uL Lymph # (Auto) 1.1 (1.0-4.3) K/uL Ross # (Auto) 0.3 (0.0-0.8) K/uL Eos # (Auto) 0.1 (0.0-0.7) K/uL Baso # (Auto) 0.0 (0.0-0.2) K/uL Puncture Site Drawn by pCO2 43 (35-45) mm/Hg pO2 313 H (80-100) mm/Hg HCO3 26.2 (21-28) mmol/L ABG pH 7.40 (7.35-7.45) ABG Total CO2 27.9 (22-28) mmol/L ABG O2 Saturation 99.2 H (95-98) % ABG Base Excess 1.5 (-2.0-3.0) mmol/L ABG Hemoglobin (11.7-17.4) g/dL ABG Carboxyhemoglobin (0.5-1.5) % POC ABG HHb (Measured) (0.0-5.0) % ABG Methemoglobin (0.0-3.0) % Maykel Test Na ABG Potassium 4.4 (3.6-5.2) mmol/L Hgb O2 Saturation (95.0-98.0) % Sodium 136 135.0 (132-148) mmol/l Chloride 98 101.0 (98-107) mmol/L Glucose 139 H (75-110) mg/dl Lactate 1.3 (0.7-2.1) mmol/L Liter Flow Potassium 4.1 (3.6-5.2) mmol/L Carbon Dioxide 25 (22-30) mmol/L Anion Gap 17 (10-20) BUN 52 H (9-20) mg/dL Creatinine 8.1 H* (0.8-1.5) mg/dL Est GFR ( Amer) 9 Est GFR (Non-Af Amer) 7 Random Glucose 119 H (75-110) mg/dL Calcium 8.4 L (8.6-10.4) mg/dl Phosphorus 5.4 H (2.5-4.5) mg/dL Magnesium 1.8 (1.6-2.3) mg/dL Total Bilirubin 0.8 (0.2-1.3) mg/dL AST 17 (17-59) U/L ALT 18 L D (21-72) U/L Alkaline Phosphatase 155 H (38-126) U/L Total Protein 5.9 L (6.3-8.3) g/dL Albumin 3.0 L (3.5-5.0) g/dL Globulin 2.9 (2.2-3.9) gm/dL Albumin/Globulin Ratio 1.1 (1.0-2.1) Arterial Blood Potassium 4.4 (3.6-5.2) mmol/L Blood Type Antibody Screen 06/07/18 06/07/18 Range/Units 16:11 11:49 WBC 5.6 (4.8-10.8) K/uL RBC 3.10 L (4.40-5.90) Mil/uL Hgb 9.6 L (12.0-18.0) g/dL Hct 29.9 L (35.0-51.0) % MCV 96.6 H (80.0-94.0) fL MCH 31.0 (27.0-31.0) pg MCHC 32.1 L (33.0-37.0) g/dL RDW 19.3 H (11.5-14.5) % Plt Count 164 (130-400) K/uL MPV 7.7 (7.2-11.7) fL Neut % (Auto) (50.0-75.0) % Lymph % (Auto) (20.0-40.0) % Ross % (Auto) (0.0-10.0) % Eos % (Auto) (0.0-4.0) % Baso % (Auto) (0.0-2.0) % Neut # (Auto) (1.8-7.0) K/uL Lymph # (Auto) (1.0-4.3) K/uL Ross # (Auto) (0.0-0.8) K/uL Eos # (Auto) (0.0-0.7) K/uL Baso # (Auto) (0.0-0.2) K/uL Puncture Site pCO2 (35-45) mm/Hg pO2 (80-100) mm/Hg HCO3 (21-28) mmol/L ABG pH (7.35-7.45) ABG Total CO2 (22-28) mmol/L ABG O2 Saturation (95-98) % ABG Base Excess (-2.0-3.0) mmol/L ABG Hemoglobin (11.7-17.4) g/dL ABG Carboxyhemoglobin (0.5-1.5) % POC ABG HHb (Measured) (0.0-5.0) % ABG Methemoglobin (0.0-3.0) % Maykel Test ABG Potassium (3.6-5.2) mmol/L Hgb O2 Saturation (95.0-98.0) % Sodium (132-148) mmol/l Chloride (98-107) mmol/L Glucose (75-110) mg/dl Lactate (0.7-2.1) mmol/L Liter Flow Potassium (3.6-5.2) mmol/L Carbon Dioxide (22-30) mmol/L Anion Gap (10-20) BUN (9-20) mg/dL Creatinine (0.8-1.5) mg/dL Est GFR ( Amer) Est GFR (Non-Af Amer) Random Glucose (75-110) mg/dL Calcium (8.6-10.4) mg/dl Phosphorus (2.5-4.5) mg/dL Magnesium (1.6-2.3) mg/dL Total Bilirubin (0.2-1.3) mg/dL AST (17-59) U/L ALT (21-72) U/L Alkaline Phosphatase (38-126) U/L Total Protein (6.3-8.3) g/dL Albumin (3.5-5.0) g/dL Globulin (2.2-3.9) gm/dL Albumin/Globulin Ratio (1.0-2.1) Arterial Blood Potassium (3.6-5.2) mmol/L Blood Type O POSITIVE Antibody Screen Negative Laboratory Results - last 24 hr 06/07/18 06/07/18 06/07/18 11:49 16:11 16:24 WBC 5.6 RBC 3.10 L Hgb 9.6 L Hct 29.9 L MCV 96.6 H MCH 31.0 MCHC 32.1 L RDW 19.3 H Plt Count 164 MPV 7.7 Neut % (Auto) Lymph % (Auto) Ross % (Auto) Eos % (Auto) Baso % (Auto) Neut # (Auto) Lymph # (Auto) Ross # (Auto) Eos # (Auto) Baso # (Auto) Puncture Site Drawn by pCO2 43 pO2 313 H HCO3 26.2 ABG pH 7.40 ABG Total CO2 27.9 ABG O2 Saturation 99.2 H ABG Base Excess 1.5 ABG Hemoglobin ABG Carboxyhemoglobin POC ABG HHb (Measured) ABG Methemoglobin Maykel Test Na ABG Potassium 4.4 Hgb O2 Saturation Sodium 135.0 Chloride 101.0 Glucose 139 H Lactate 1.3 Liter Flow Potassium Carbon Dioxide Anion Gap BUN Creatinine Est GFR ( Amer) Est GFR (Non-Af Amer) Random Glucose Calcium Phosphorus Magnesium Total Bilirubin AST ALT Alkaline Phosphatase Total Protein Albumin Globulin Albumin/Globulin Ratio Arterial Blood Potassium 4.4 Blood Type O POSITIVE Antibody Screen Negative 06/07/18 06/07/18 06/08/18 17:44 17:44 05:14 WBC 5.8 RBC 3.06 L Hgb 9.4 L Hct 29.3 L MCV 95.7 H MCH 30.6 MCHC 31.9 L RDW 19.2 H Plt Count 161 MPV 7.2 Neut % (Auto) 75.5 H Lymph % (Auto) 18.3 L Ross % (Auto) 4.4 Eos % (Auto) 1.1 Baso % (Auto) 0.7 Neut # (Auto) 4.4 Lymph # (Auto) 1.1 Ross # (Auto) 0.3 Eos # (Auto) 0.1 Baso # (Auto) 0.0 Puncture Site [place] pCO2 41 pO2 86 HCO3 25.8 ABG pH 7.41 ABG Total CO2 27.3 ABG O2 Saturation 97.2 ABG Base Excess 1.2 ABG Hemoglobin 9.9 L ABG Carboxyhemoglobin 2.5 H POC ABG HHb (Measured) 2.7 ABG Methemoglobin 1.1 Maykel Test Na ABG Potassium Hgb O2 Saturation 93.7 L Sodium 136 Chloride 98 Glucose Lactate Liter Flow 3.0 Potassium 4.1 Carbon Dioxide 25 Anion Gap 17 BUN 52 H Creatinine 8.1 H* Est GFR ( Amer) 9 Est GFR (Non-Af Amer) 7 Random Glucose 119 H Calcium 8.4 L Phosphorus 5.4 H Magnesium 1.8 Total Bilirubin 0.8 AST 17 ALT 18 L D Alkaline Phosphatase 155 H Total Protein 5.9 L Albumin 3.0 L Globulin 2.9 Albumin/Globulin Ratio 1.1 Arterial Blood Potassium Blood Type Antibody Screen 06/08/18 06/08/18 06:10 06:10 WBC 5.4 RBC 3.18 L Hgb 9.9 L Hct 30.5 L MCV 95.7 H MCH 31.2 H MCHC 32.5 L RDW 19.2 H Plt Count 170 MPV 8.5 Neut % (Auto) 79.4 H Lymph % (Auto) 14.2 L Ross % (Auto) 5.4 Eos % (Auto) 0.3 Baso % (Auto) 0.7 Neut # (Auto) 4.3 Lymph # (Auto) 0.8 L Ross # (Auto) 0.3 Eos # (Auto) 0.0 Baso # (Auto) 0.0 Puncture Site pCO2 pO2 HCO3 ABG pH ABG Total CO2 ABG O2 Saturation ABG Base Excess ABG Hemoglobin ABG Carboxyhemoglobin POC ABG HHb (Measured) ABG Methemoglobin Maykel Test ABG Potassium Hgb O2 Saturation Sodium 134 Chloride 94 L Glucose Lactate Liter Flow Potassium 4.7 Carbon Dioxide 26 Anion Gap 18 BUN 58 H Creatinine 8.9 H* Est GFR ( Amer) 8 Est GFR (Non-Af Amer) 6 Random Glucose 97 Calcium 9.1 Phosphorus 6.4 H Magnesium 1.9 Total Bilirubin 0.7 AST 19 ALT 12 L D Alkaline Phosphatase 159 H Total Protein 6.3 Albumin 3.2 L Globulin 3.2 Albumin/Globulin Ratio 1.0 Arterial Blood Potassium Blood Type Antibody Screen Critical Care Progress Note - Nutrition Nutrition: Nutrition Category Date Time Status Regular Diet [DIET] Diets 06/08/18 Breakfast Active Assessment/Plan - Assessment and Plan (Free Text) Plan: PAtient post op nephrectomy -remains hemodynamically stable -restart home medications -continue pain control as per anesthesia -patient remains hemodynamically stable -d/c arterial line - Date & Time Date: 06/08/18 Time: 15:51
[2018-06-08] MEDS: Ferric Sodium Gluconat Complex 62.5 mg/5 ml Vial IVPB SCH (13:30)
--- NOTE | 2018-06-08 13:48 | CP.PCM.PN ---
Subjective - Date & Time of Evaluation Date of Evaluation: 06/08/18 Time of Evaluation: 13:46 - Subjective Subjective: s/p right nephrectomy 06/07 On dialysis now UF goal 4500ml Tolerating HD so far Extra HD planned in AM Objective - Vital Signs/Intake and Output Vital Signs (last 24 hours): Temp Pulse Resp BP Pulse Ox 97.6 F 90 20 125/49 L 98 06/08/18 10:30 06/08/18 10:30 06/08/18 10:30 06/08/18 12:57 06/08/18 10:30 Intake and Output: 06/08/18 06/08/18 06:59 18:59 Intake Total 145.8 Balance 145.8 - Medications Medications: Current Medications Alprazolam (Xanax) 0.25 mg PO DAILY PRN PRN Reason: Anxiety Stop: 06/13/18 22:24 Calcium Acetate (Phoslo) 667 mg PO TID [facility] Last Admin: 06/07/18 19:02 Dose: Not Given Calcium Acetate (Phoslo) 667 mg PO BIDCC [facility] Ferric Sodium Gluconate Complex (Ferrlecit) 125 mg IVPB DAILY [facility] Stop: 06/16/18 13:01 Heparin Sodium (Porcine) (Heparin) 5,000 units SC Q8 [facility] Last Admin: 06/07/18 14:57 Dose: Not Given Hydromorphone/Sodium Chloride (Dilaudid Metal Trades Instructor) 6 mg IV Q4H PRN; Protocol PRN Reason: Pain, severe (8-10) Last Admin: 06/08/18 10:58 Dose: 6 mg Mirtazapine (Remeron) 15 mg PO [facility] Naloxone HCl (Narcan) 0.1 mg IVP Q2M PRN PRN Reason: apnea Ondansetron HCl (Zofran Inj) 4 mg IVP DAILY PRN PRN Reason: Nausea/Vomiting Oxycodone/Acetaminophen (Percocet 5/325 Mg Tab) 2 tab PO Q6H PRN PRN Reason: Pain, severe (8-10) Stop: 06/09/18 22:24 Sevelamer Carbonate (Renvela) 2.4 gm PO BIDCC [facility] Last Admin: 06/07/18 18:41 Dose: Not Given Sevelamer Carbonate (Renvela) 800 mg PO TIDCC [facility] Last Admin: 06/08/18 13:00 Dose: 800 mg Tamsulosin HCl (Flomax) 0.4 mg PO DAILY [facility] Last Admin: 06/08/18 11:17 Dose: 0.4 mg Vitamin A (Vitamin A & D Oint Ud Foilpak) 1 ea TOP BID [facility] - Labs Labs: 06/08/18 06:10 06/08/18 06:10 PT 16.6 SECONDS (9.7-12.2) H 06/06/18 20:47 INR 1.5 06/06/18 20:47 APTT 38 SECONDS (21-34) H 06/06/18 20:47 - Constitutional Appears: No Acute Distress, Chronically Ill - Head Exam Head Exam: ATRAUMATIC, NORMAL INSPECTION - Eye Exam Eye Exam: EOMI, Normal appearance - Neck Exam Neck Exam: Normal Inspection. absent: Tenderness - Respiratory Exam Respiratory Exam: Clear to Ausculation Bilateral, NORMAL BREATHING PATTERN - Cardiovascular Exam Cardiovascular Exam: REGULAR RHYTHM, +S1 - GI/Abdominal Exam GI & Abdominal Exam: Soft. absent: Tenderness - Extremities Exam Extremities Exam: Normal Inspection. 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
--- NOTE | 2018-06-08 15:18 | PCM.URO ---
Urology Progress Note - Objective Lab Studies: Reviewed (pod #1 s/p nephrectomy doing well) Lab Results Last 24 Hours: Laboratory Results - last 24 hr 06/07/18 06/07/18 06/07/18 11:49 16:11 16:24 WBC 5.6 RBC 3.10 L Hgb 9.6 L Hct 29.9 L MCV 96.6 H MCH 31.0 MCHC 32.1 L RDW 19.3 H Plt Count 164 MPV 7.7 Neut % (Auto) Lymph % (Auto) [place] % (Auto) Eos % (Auto) Baso % (Auto) Neut # (Auto) Lymph # (Auto) [place] # (Auto) Eos # (Auto) Baso # (Auto) Puncture Site Drawn by pCO2 43 pO2 313 H HCO3 26.2 ABG pH 7.40 ABG Total CO2 27.9 ABG O2 Saturation 99.2 H ABG Base Excess 1.5 ABG Hemoglobin ABG Carboxyhemoglobin POC ABG HHb (Measured) ABG Methemoglobin Maykel Test Na ABG Potassium 4.4 Hgb O2 Saturation Sodium 135.0 Chloride 101.0 Glucose 139 H Lactate 1.3 Liter Flow Potassium Carbon Dioxide Anion Gap BUN Creatinine Est GFR ( Amer) Est GFR (Non-Af Amer) Random Glucose Calcium Phosphorus Magnesium Total Bilirubin AST ALT Alkaline Phosphatase Total Protein Albumin Globulin Albumin/Globulin Ratio Arterial Blood Potassium 4.4 Blood Type O POSITIVE Antibody Screen Negative 06/07/18 06/07/18 06/08/18 17:44 17:44 05:14 WBC 5.8 RBC 3.06 L Hgb 9.4 L Hct 29.3 L MCV 95.7 H MCH 30.6 MCHC 31.9 L RDW 19.2 H Plt Count 161 MPV 7.2 Neut % (Auto) 75.5 H Lymph % (Auto) 18.3 L [place] % (Auto) 4.4 Eos % (Auto) 1.1 Baso % (Auto) 0.7 Neut # (Auto) 4.4 Lymph # (Auto) 1.1 [place] # (Auto) 0.3 Eos # (Auto) 0.1 Baso # (Auto) 0.0 Puncture Site Luz pCO2 41 pO2 86 HCO3 25.8 ABG pH 7.41 ABG Total CO2 27.3 ABG O2 Saturation 97.2 ABG Base Excess 1.2 ABG Hemoglobin 9.9 L ABG Carboxyhemoglobin 2.5 H POC ABG HHb (Measured) 2.7 ABG Methemoglobin 1.1 Maykel Test Na ABG Potassium Hgb O2 Saturation 93.7 L Sodium 136 Chloride 98 Glucose Lactate Liter Flow 3.0 Potassium 4.1 Carbon Dioxide 25 Anion Gap 17 BUN 52 H Creatinine 8.1 H* Est GFR ( Amer) 9 Est GFR (Non-Af Amer) 7 Random Glucose 119 H Calcium 8.4 L Phosphorus 5.4 H Magnesium 1.8 Total Bilirubin 0.8 AST 17 ALT 18 L D Alkaline Phosphatase 155 H Total Protein 5.9 L Albumin 3.0 L Globulin 2.9 Albumin/Globulin Ratio 1.1 Arterial Blood Potassium Blood Type Antibody Screen 06/08/18 06/08/18 06:10 06:10 WBC 5.4 RBC 3.18 L Hgb 9.9 L Hct 30.5 L MCV 95.7 H MCH 31.2 H MCHC 32.5 L RDW 19.2 H Plt Count 170 MPV 8.5 Neut % (Auto) 79.4 H Lymph % (Auto) 14.2 L [place] % (Auto) 5.4 Eos % (Auto) 0.3 Baso % (Auto) 0.7 Neut # (Auto) 4.3 Lymph # (Auto) 0.8 L [place] # (Auto) 0.3 Eos # (Auto) 0.0 Baso # (Auto) 0.0 Puncture Site pCO2 pO2 HCO3 ABG pH ABG Total CO2 ABG O2 Saturation ABG Base Excess ABG Hemoglobin ABG Carboxyhemoglobin POC ABG HHb (Measured) ABG Methemoglobin Maykel Test ABG Potassium Hgb O2 Saturation Sodium 134 Chloride 94 L Glucose Lactate Liter Flow Potassium 4.7 Carbon Dioxide 26 Anion Gap 18 BUN 58 H Creatinine 8.9 H* Est GFR ( Amer) 8 Est GFR (Non-Af Amer) 6 Random Glucose 97 Calcium 9.1 Phosphorus 6.4 H Magnesium 1.9 Total Bilirubin 0.7 AST 19 ALT 12 L D Alkaline Phosphatase 159 H Total Protein 6.3 Albumin 3.2 L Globulin 3.2 Albumin/Globulin Ratio 1.0 Arterial Blood Potassium Blood Type Antibody Screen Intake & Output: Intake & Output 06/07/18 06/08/18 06/08/18 18:59 06:59 18:59 Intake Total 2575 145.8 340 Balance 2575 145.8 340 Weight 200 lb 6.403 oz Intake: IV 2250 Intake, IV Amount 145.8 Right Forearm 0 Right Hand 145.8 Oral 0 340 Blood Product 325 Other: # Voids Urine, Voided 0 # Bowel Movements 0 Vital Signs: Vital Signs - 24 hr 06/07/18 06/07/18 06/07/18 16:48 16:56 17:15 Temperature 98.1 F Pulse Rate 87 83 81 Pulse Rate [ Bilateral Radial] Respiratory 15 18 17 Rate Blood Pressure 106/34 L 118/43 L 105/41 L Blood Pressure [Right Radial Artery] O2 Sat by Pulse 98 97 98 Oximetry 06/07/18 06/07/18 06/07/18 17:24 17:45 17:55 Temperature 98 F Pulse Rate 86 82 79 Pulse Rate [ Bilateral Radial] Respiratory 16 19 18 Rate Blood Pressure 104/40 L 107/41 L 101/37 L Blood Pressure [Right Radial Artery] O2 Sat by Pulse 99 98 88 L Oximetry 06/07/18 06/07/18 06/07/18 18:00 18:55 19:00 Temperature 98.1 F Pulse Rate 79 84 Pulse Rate [ Bilateral Radial] Respiratory 29 H 30 H Rate Blood Pressure 101/37 L 106/36 L Blood Pressure 111/42 L 121/38 L [Right Radial Artery] O2 Sat by Pulse 94 L 94 L Oximetry 06/07/18 06/07/18 06/07/18 19:55 20:00 20:55 Temperature 97.4 F L Pulse Rate 81 86 Pulse Rate [ Bilateral Radial] Respiratory 27 H 24 Rate Blood Pressure 109/40 L Blood Pressure 114/41 L [Right Radial Artery] O2 Sat by Pulse 95 92 L 93 L Oximetry 06/07/18 06/07/18 06/07/18 21:00 22:00 23:00 Temperature Pulse Rate 86 85 85 Pulse Rate [ Bilateral Radial] Respiratory 24 27 H 25 H Rate Blood Pressure Blood Pressure 126/41 L 113/43 L [Right Radial Artery] O2 Sat by Pulse 90 L 92 L 94 L Oximetry 06/07/18 06/08/18 06/08/18 23:38 00:00 01:00 Temperature 97.1 F L Pulse Rate 84 85 85 Pulse Rate [ Bilateral Radial] Respiratory 29 H 20 16 Rate Blood Pressure 126/42 L Blood Pressure 113/42 L 117/42 L [Right Radial Artery] O2 Sat by Pulse 91 L 94 L 96 Oximetry 06/08/18 06/08/18 06/08/18 01:05 02:00 03:00 Temperature Pulse Rate 83 85 Pulse Rate [ Bilateral Radial] Respiratory 20 18 Rate Blood Pressure 116/40 L Blood Pressure 131/46 L 124/42 L [Right Radial Artery] O2 Sat by Pulse 90 L 92 L Oximetry 06/08/18 06/08/18 06/08/18 04:00 05:00 06:00 Temperature 97.9 F Pulse Rate 87 86 87 Pulse Rate [ Bilateral Radial] Respiratory 23 17 19 Rate Blood Pressure Blood Pressure 123/44 L 128/48 L 141/47 L [Right Radial Artery] O2 Sat by Pulse 88 L 93 L 94 L Oximetry 06/08/18 06/08/18 06/08/18 07:00 08:00 09:00 Temperature Pulse Rate 88 87 90 Pulse Rate [ Bilateral Radial] Respiratory 22 20 18 Rate Blood Pressure Blood Pressure 126/48 L 126/47 L 136/47 L [Right Radial Artery] O2 Sat by Pulse 88 L 89 L 93 L Oximetry 06/08/18 06/08/18 06/08/18 10:00 10:30 10:45 Temperature 97.6 F Pulse Rate 90 90 Pulse Rate [ 90 Bilateral Radial] Respiratory 19 20 Rate Blood Pressure 125/47 L Blood Pressure 120/46 L 119/50 L 124/50 L [Right Radial Artery] O2 Sat by Pulse 93 L 98 Oximetry 06/08/18 06/08/18 06/08/18 11:00 11:30 12:00 Temperature Pulse Rate 88 89 Pulse Rate [ Bilateral Radial] Respiratory 26 H 21 Rate Blood Pressure Blood Pressure 130/46 L 130/49 L 132/48 L [Right Radial Artery] O2 Sat by Pulse 92 L 95 Oximetry 06/08/18 06/08/18 06/08/18 12:30 13:00 13:30 Temperature Pulse Rate 88 Pulse Rate [ Bilateral Radial] Respiratory 19 Rate Blood Pressure Blood Pressure 129/50 L 125/47 L 122/46 L [Right Radial Artery] O2 Sat by Pulse 96 Oximetry 06/08/18 14:00 Temperature 97.8 F Pulse Rate 88 Pulse Rate [ 88 Bilateral Radial] Respiratory 16 Rate Blood Pressure Blood Pressure 122/45 L [Right Radial Artery] O2 Sat by Pulse 96 Oximetry
[2018-06-08] MEDS: Vitamins A & D Oint UD Foilpak TOP SCH (18:32)
--- NOTE | 2018-06-08 21:53 | CP.PCM.PN ---
Subjective - Subjective Subjective: dictated Objective - Vital Signs/Intake and Output Vital Signs (last 24 hours): Temp Pulse Resp BP Pulse Ox 97.3 F L 89 20 102/48 L 95 06/08/18 17:21 06/08/18 17:21 06/08/18 17:21 06/08/18 17:21 06/08/18 17:21 Intake and Output: 06/08/18 06/09/18 18:59 06:59 Intake Total 580 Balance 580 - Medications Medications: Current Medications Alprazolam (Xanax) 0.25 mg PO DAILY PRN PRN Reason: Anxiety Stop: 06/13/18 22:24 Calcium Acetate (Phoslo) 667 mg PO TID [facility] Last Admin: 06/08/18 18:32 Dose: 667 mg Ferric Sodium Gluconate Complex (Ferrlecit) 125 mg IVPB DAILY [facility] Stop: 06/16/18 13:01 Last Admin: 06/08/18 13:30 Dose: 125 mg Heparin Sodium (Porcine) (Heparin) 5,000 units SC Q8 [facility] Last Admin: 06/07/18 14:57 Dose: Not Given Hydromorphone/Sodium Chloride (Dilaudid Community Living Coach) 6 mg IV Q4H PRN; Protocol PRN Reason: Pain, severe (8-10) Last Admin: 06/08/18 20:32 Dose: 6 mg Mirtazapine (Remeron) 15 mg PO HS [facility] Naloxone HCl (Narcan) 0.1 mg IVP Q2M PRN PRN Reason: apnea Ondansetron HCl (Zofran Inj) 4 mg IVP DAILY PRN PRN Reason: Nausea/Vomiting Oxycodone/Acetaminophen (Percocet 5/325 Mg Tab) 2 tab PO Q6H PRN PRN Reason: Pain, severe (8-10) Stop: 06/09/18 22:24 Pantoprazole Sodium (Protonix Ec Tab) 40 mg PO DAILY [facility] Sevelamer Carbonate (Renvela) 2.4 gm PO BIDCC [facility] Last Admin: 06/08/18 18:33 Dose: Not Given Tamsulosin HCl (Flomax) 0.4 mg PO DAILY [facility] Last Admin: 06/08/18 11:17 Dose: 0.4 mg Vitamin A (Vitamin A & D Oint Ud Foilpak) 1 ea TOP BID [facility] Last Admin: 06/08/18 18:32 Dose: 1 ea - Labs Labs: 06/08/18 06:10 06/08/18 06:10 PT 16.6 SECONDS (9.7-12.2) H 06/06/18 20:47 INR 1.5 06/06/18 20:47 APTT 38 SECONDS (21-34) H 06/06/18 20:47
--- NOTE | 2018-06-09 01:18 | PN ---
DATE: 06/08/2018 SUBJECTIVE: The patient is status post right-sided nephrectomy. He is afebrile. He is in ICU with CVP line in place. PHYSICAL EXAMINATION: VITAL SIGNS: BP 102/48, pulse 59, respiratory rate 20, temperature 97.3. LUNGS: Clear. CARDIOVASCULAR SYSTEM: S1, S2 regular. ABDOMEN: Soft. ASSESSMENT: 1. Staghorn calculus with obstructive uropathy, status post nephrectomy. 2. Chronic kidney disease, on hemodialysis. 3. Drug abuse. PLAN: Continue postop care. Intravenous iron. Monitor the patient. Mikel Marc MD
[2018-06-09 08:16] LABS: BASO % 0.9 % (0.0-2.0); EOS % 0.4 % (0.0-4.0); HEMOGLOBIN 10.3 g/dL (12.0-18.0); LYMPH # 0.8 K/uL (1.0-4.3); LYMPH % 14.9 % (20.0-40.0); MEAN CORPUSCULAR HEMOGLOBIN 30.8 pg (27.0-31.0); MEAN CORPUSCULAR HGB CONC 32.1 g/dL (33.0-37.0); MONO # 0.3 K/uL (0.0-0.8); NEUT # 4.2 K/uL (1.8-7.0); NEUT % 77.8 % (50.0-75.0); RBC 3.34 Mil/uL (4.40-5.90); RED CELL DISTRIBUTION WIDTH 19.2 % (11.5-14.5); WHITE BLOOD COUNT 5.4 K/uL (4.8-10.8)
[2018-06-09] MEDS: Sevelamer Carb 2.4 gm/Packet PO SCH ×2 (08:23→17:54)
[2018-06-09 08:37] LABS: ALB/GLOB RATIO 0.9 (1.0-2.1); CALCIUM 8.6 mg/dl (8.6-10.4)
[2018-06-09] MEDS: Ferric Sodium Gluconat Complex 62.5 mg/5 ml Vial IVPB SCH (11:17)
--- NOTE | 2018-06-09 11:50 | CP.PCM.PN ---
Subjective - Date & Time of Evaluation Date of Evaluation: 06/09/18 Time of Evaluation: 11:48 - Subjective Subjective: seen on HD 4 kg uf stable BP eating regular diet no BM yet no fever no chills no rash post incisional pain no sob no cough no headache Objective - Vital Signs/Intake and Output Vital Signs (last 24 hours): Temp Pulse Resp BP Pulse Ox 98.2 F 81 20 102/46 L 94 L 06/09/18 08:45 06/09/18 11:32 06/09/18 08:45 06/09/18 11:32 06/09/18 08:45 - Medications Medications: Current Medications Alprazolam (Xanax) 0.25 mg PO DAILY PRN PRN Reason: Anxiety Stop: 06/13/18 22:24 Calcium Acetate (Phoslo) 667 mg PO TID [facility] Last Admin: 06/09/18 11:42 Dose: Not Given Ferric Sodium Gluconate Complex (Ferrlecit) 125 mg IVPB DAILY [facility] Stop: 06/16/18 13:01 Last Admin: 06/09/18 11:17 Dose: 125 mg Heparin Sodium (Porcine) (Heparin) 5,000 units SC Q8 [facility] Last Admin: 06/07/18 14:57 Dose: Not Given Hydromorphone/Sodium Chloride (Dilaudid Solids Control Technician) 6 mg IV Q4H PRN; Protocol PRN Reason: Pain, severe (8-10) Last Admin: 06/09/18 11:09 Dose: 6 mg Mirtazapine (Remeron) 15 mg PO HS [facility] Last Admin: 06/08/18 22:09 Dose: 15 mg Naloxone HCl (Narcan) 0.1 mg IVP Q2M PRN PRN Reason: apnea Ondansetron HCl (Zofran Inj) 4 mg IVP DAILY PRN PRN Reason: Nausea/Vomiting Oxycodone/Acetaminophen (Percocet 5/325 Mg Tab) 2 tab PO Q6H PRN PRN Reason: Pain, severe (8-10) Stop: 06/09/18 22:24 Pantoprazole Sodium (Protonix Ec Tab) 40 mg PO DAILY [facility] Sevelamer Carbonate (Renvela) 2.4 gm PO BIDCC [facility] Last Admin: 06/09/18 08:23 Dose: 2.4 gm Tamsulosin HCl (Flomax) 0.4 mg PO DAILY [facility] Last Admin: 06/08/18 11:17 Dose: 0.4 mg Vitamin A (Vitamin A & D Oint Ud Foilpak) 1 ea TOP BID [facility] Last Admin: 06/08/18 18:32 Dose: 1 ea - Labs Labs: 06/09/18 08:08 06/09/18 08:08 PT 16.6 SECONDS (9.7-12.2) H 06/06/18 20:47 INR 1.5 06/06/18 20:47 APTT 38 SECONDS (21-34) H 06/06/18 20:47 - Constitutional Appears: No Acute Distress, Chronically Ill - Head Exam Head Exam: ATRAUMATIC - Eye Exam Eye Exam: EOMI - ENT Exam ENT Exam: Mucous Membranes Moist - Neck Exam Neck Exam: Full ROM. absent: Lymphadenopathy - Respiratory Exam Respiratory Exam: Decreased Breath Sounds - Cardiovascular Exam Cardiovascular Exam: REGULAR RHYTHM. absent: Rubs - GI/Abdominal Exam GI & Abdominal Exam: Soft, Normal Bowel Sounds - Extremities Exam Extremities Exam: Pedal Edema - Neurological Exam Neurological Exam: Alert, Oriented x3 Assessment and Plan - Assessment and Plan (Free Text) Assessment: post r nephrectomy f/u post surgical management await Ab maint HD fluid restriction
[2018-06-09] MEDS: Vitamins A & D Oint UD Foilpak TOP SCH ×2 (11:55→17:54)
[2018-06-09] MEDS: Pantoprazole 40 mg EC Tab PO SCH (13:47)
--- NOTE | 2018-06-09 21:22 | CP.PCM.PN ---
Subjective - Subjective Subjective: dictated Objective - Vital Signs/Intake and Output Vital Signs (last 24 hours): Temp Pulse Resp BP Pulse Ox 98 F 84 20 120/52 L 98 06/09/18 15:00 06/09/18 15:00 06/09/18 15:00 06/09/18 15:00 06/09/18 15:00 - Medications Medications: Current Medications Alprazolam (Xanax) 0.25 mg PO DAILY PRN PRN Reason: Anxiety Stop: 06/13/18 22:24 Calcium Acetate (Phoslo) 667 mg PO TID [facility] Last Admin: 06/09/18 17:55 Dose: 667 mg Ferric Sodium Gluconate Complex (Ferrlecit) 125 mg IVPB DAILY [facility] Stop: 06/16/18 13:01 Last Admin: 06/09/18 11:17 Dose: 125 mg Heparin Sodium (Porcine) (Heparin) 5,000 units SC Q8 [facility] Last Admin: 06/07/18 14:57 Dose: Not Given Hydromorphone/Sodium Chloride (Dilaudid Riveter Portable Machine) 6 mg IV Q4H PRN; Protocol PRN Reason: Pain, severe (8-10) Last Admin: 06/09/18 11:09 Dose: 6 mg Mirtazapine (Remeron) 15 mg PO HS [facility] Last Admin: 06/08/18 22:09 Dose: 15 mg Naloxone HCl (Narcan) 0.1 mg IVP Q2M PRN PRN Reason: apnea Ondansetron HCl (Zofran Inj) 4 mg IVP DAILY PRN PRN Reason: Nausea/Vomiting Oxycodone/Acetaminophen (Percocet 5/325 Mg Tab) 2 tab PO Q6H PRN PRN Reason: Pain, severe (8-10) Stop: 06/09/18 22:24 Pantoprazole Sodium (Protonix Ec Tab) 40 mg PO DAILY [facility] Last Admin: 06/09/18 13:47 Dose: Not Given [facility] Last Admin: 06/09/18 17:54 Dose: 2.4 gm Tamsulosin HCl (Flomax) 0.4 mg PO DAILY [facility] Last Admin: 06/09/18 13:47 Dose: Not Given Vitamin A (Vitamin A & D Oint Ud Foilpak) 1 ea TOP BID [facility] Last Admin: 06/09/18 17:54 Dose: 1 ea - Labs Labs: 06/09/18 08:08 06/09/18 08:08 PT 16.6 SECONDS (9.7-12.2) H 06/06/18 20:47 INR 1.5 06/06/18 20:47 APTT 38 SECONDS (21-34) H 06/06/18 20:47
[2018-06-10] MEDS: Sevelamer Carb 2.4 gm/Packet PO SCH ×2 (07:48→18:17)
[2018-06-10 08:03] LABS: BASO # 0.1 K/uL (0.0-0.2); BASO % 0.9 % (0.0-2.0); EOS # 0.1 K/uL (0.0-0.7); EOS % 1.1 % (0.0-4.0); HEMOGLOBIN 10.5 g/dL (12.0-18.0); LYMPH % 18.2 % (20.0-40.0); MEAN CELL VOLUME 95.2 fL (80.0-94.0); MEAN CORPUSCULAR HGB CONC 32.6 g/dL (33.0-37.0); MEAN PLATELET VOLUME 7.8 fL (7.2-11.7); MONO # 0.3 K/uL (0.0-0.8); MONO % 5.6 % (0.0-10.0); NEUT # 4.2 K/uL (1.8-7.0); NEUT % 74.2 % (50.0-75.0); RBC 3.4 Mil/uL (4.40-5.90); WHITE BLOOD COUNT 5.6 K/uL (4.8-10.8)
[2018-06-10 08:28] LABS: ALBUMIN 3.3 g/dL (3.5-5.0); CALCIUM 8.8 mg/dl (8.6-10.4)
[2018-06-10] MEDS: Ferric Sodium Gluconat Complex 62.5 mg/5 ml Vial IVPB SCH (09:57)
[2018-06-10] MEDS: Pantoprazole 40 mg EC Tab PO SCH (10:14)
[2018-06-10] MEDS: Vitamins A & D Oint UD Foilpak TOP SCH ×2 (10:23→18:18)
--- NOTE | 2018-06-11 01:29 | PN ---
DATE: 06/10/2018 SUBJECTIVE: The patient is improving. He is afebrile. PHYSICAL EXAMINATION: VITAL SIGNS: Blood pressure 108/50, pulse 83, respiratory rate 20, temperature 98.5. LUNGS: Clear. CARDIOVASCULAR SYSTEM: S1 and S2 are regular. ABDOMEN: Soft. LABORATORY DATA: WBC 5.4, hemoglobin 10.3, hematocrit 32.1, platelets 198. Sodium 135, potassium 5, chloride 97, bicarb 25, BUN 42, creatinine 7.5. ASSESSMENT: 1. Status post nephrectomy for pyelonephrosis and staghorn calculus. 2. Chronic kidney disease, on hemodialysis. 3. Hepatitic C. 4. Anxiety and depression. PLAN: Continue postop care. Monitor the patient. Mikel Marc MD
[2018-06-11 06:36] LABS: BASO # 0.1 K/uL (0.0-0.2); BASO % 1.5 % (0.0-2.0); EOS # 0.1 K/uL (0.0-0.7); EOS % 3.2 % (0.0-4.0); HEMOGLOBIN 9.6 g/dL (12.0-18.0); LYMPH # 1.3 K/uL (1.0-4.3); LYMPH % 30.1 % (20.0-40.0); MEAN CELL VOLUME 95.4 fL (80.0-94.0); MEAN CORPUSCULAR HEMOGLOBIN 30.9 pg (27.0-31.0); MEAN CORPUSCULAR HGB CONC 32.4 g/dL (33.0-37.0); MONO # 0.2 K/uL (0.0-0.8); MONO % 5.6 % (0.0-10.0); NEUT # 2.6 K/uL (1.8-7.0); NEUT % 59.6 % (50.0-75.0); RBC 3.11 Mil/uL (4.40-5.90); RED CELL DISTRIBUTION WIDTH 19.2 % (11.5-14.5); WHITE BLOOD COUNT 4.4 K/uL (4.8-10.8)
[2018-06-11 06:49] LABS: CALCIUM 8.6 mg/dl (8.6-10.4)
[2018-06-11] MEDS: Sevelamer Carb 2.4 gm/Packet PO SCH ×2 (07:37→18:01)
--- NOTE | 2018-06-11 08:35 | PN ---
DATE: 06/10/2018 SUBJECTIVE: The patient is afebrile. He is feeling better. He is postop. He has some pain. He is on pain medication. No fever, no chills. PHYSICAL EXAMINATION VITAL SIGNS: Blood pressure 123/49, pulse 88, respiratory rate 20, temperature 98.3. LUNGS: Clear. CARDIOVASCULAR SYSTEM: S1 and S2 regular. ABDOMEN: Soft. CENTRAL NERVOUS SYSTEM: Awake, alert and oriented x3. ASSESSMENT: 1. Pyonephrosis, status post nephrectomy. 2. Chronic kidney disease, on hemodialysis. 3. Hepatitis C. 4. Anxiety and depression. PLAN: Continue postop care. Labs reviewed. The patient is stable. Mikel Marc MD
[2018-06-11] MEDS: Pantoprazole 40 mg EC Tab PO SCH (09:19)
[2018-06-11] MEDS: Oxycodone/Acetaminophen 5/325 mg Tab PO PRN ×2 (09:19→20:25)
[2018-06-11] MEDS: Vitamins A & D Oint UD Foilpak TOP SCH ×2 (09:21→18:01)
--- NOTE | 2018-06-11 09:28 | PCM.URO ---
Urology Progress Note - General General: Tolerating Diet - Subjective Abdominal Pain: Yes Flank Pain: Yes Voiding Well: No (not voiding) Hematuria: No Chest Pain: No Fever & Chills: No - Objective Lab Studies: Reviewed Lab Results Last 24 Hours: Laboratory Results - last 24 hr 06/11/18 06/11/18 06:24 06:24 WBC 4.4 L RBC 3.11 L Hgb 9.6 L Hct 29.7 L MCV 95.4 H MCH 30.9 MCHC 32.4 L RDW 19.2 H Plt Count 200 MPV 8.0 Neut % (Auto) 59.6 Lymph % (Auto) 30.1 [place] % (Auto) 5.6 Eos % (Auto) 3.2 Baso % (Auto) 1.5 Neut # (Auto) 2.6 Lymph # (Auto) 1.3 [place] # (Auto) 0.2 Eos # (Auto) 0.1 Baso # (Auto) 0.1 Sodium 132 Potassium 4.2 Chloride 93 L Carbon Dioxide 28 Anion Gap 15 BUN 46 H Creatinine 8.4 H* D Est GFR ( Amer) 8 Est GFR (Non-Af Amer) 7 Random Glucose 89 Calcium 8.6 Phosphorus 5.6 H Magnesium 2.2 Total Bilirubin 0.6 AST 16 L D ALT 11 L Alkaline Phosphatase 123 Total Protein 6.1 L Albumin 3.0 L Globulin 3.0 Albumin/Globulin Ratio 1.0 Vital Signs: Vital Signs - 24 hr 06/10/18 06/10/18 06/10/18 15:15 17:30 20:00 Temperature 98.0 F Pulse Rate 84 85 80 Respiratory 20 20 Rate Blood Pressure 106/50 L 102/49 L O2 Sat by Pulse 96 Oximetry 06/10/18 06/10/18 06/11/18 23:30 23:55 03:41 Temperature 98.3 F Pulse Rate 84 84 76 Respiratory 20 Rate Blood Pressure 109/45 L O2 Sat by Pulse 95 Oximetry - Physical Exam Abdominal Exam: Soft, Non-Distended Bowel Sounds: Normal Dressing: Dry, Intact Extremities: Normal: Bilateral - Plan Wound Care: Yes Ambulation - Out of Bed: Yes Additional Information: Imp: stable p nephrectomy. Renal failure. Hx of urolithiasis - Date & Time of Note Date: 06/11/18 Time: 09:28
[2018-06-11] MEDS ORDERED: Ferric Sodium Gluconat Complex 125 MG in Sodium Chloride 0.9% 100 ML IVPB SCH (10:00)
[2018-06-11] MEDS: oxyCODONE 20 mg ER Tab (oxyCONTIN) PO SCH ×2 (12:01→21:57)
--- NOTE | 2018-06-11 14:10 | CP.PCM.PN ---
Subjective - Date & Time of Evaluation Date of Evaluation: 06/11/18 Time of Evaluation: 14:09 - Subjective Subjective: seen and examined in hd post rt nephrectomy no f/c/n/v/d/dizziness/cp c/o abdominal pain, post surgical Objective - Vital Signs/Intake and Output Vital Signs (last 24 hours): Temp Pulse Resp BP Pulse Ox 98.1 F 79 20 94/45 L 96 06/11/18 07:00 06/11/18 07:00 06/11/18 07:00 06/11/18 07:00 06/11/18 07:00 - Medications Medications: Current Medications Alprazolam (Xanax) 0.25 mg PO DAILY PRN PRN Reason: Anxiety Stop: 06/13/18 22:24 Calcium Acetate (Phoslo) 667 mg PO TID [facility] Last Admin: 06/11/18 09:19 Dose: 667 mg Ferric Sodium Gluconate Complex (Ferrlecit) 125 mg IVPB DAILY [facility] Stop: 06/16/18 13:01 Last Admin: 06/10/18 09:57 Dose: 125 mg Heparin Sodium (Porcine) (Heparin) 5,000 units SC Q8 [facility] Last Admin: 06/10/18 21:53 Dose: Not Given Ferric Sodium Gluconate Complex 125 mg/ Sodium Chloride 110 mls @ 110 mls/hr IVPB DAILY [facility] Stop: 06/16/18 10:01 Lactulose (Enulose) 20 gm PO DAILY PRN PRN Reason: Constipation Last Admin: 06/11/18 09:19 Dose: 20 gm Mirtazapine (Remeron) 15 mg PO HS [facility] Last Admin: 06/10/18 21:50 Dose: 15 mg Naloxone HCl (Narcan) 0.1 mg IVP Q2M PRN PRN Reason: apnea Ondansetron HCl (Zofran Inj) 4 mg IVP DAILY PRN PRN Reason: Nausea/Vomiting Oxycodone HCl (Oxycontin Extended Release Tab) 20 mg PO Q12 [facility] Last Admin: 06/11/18 12:01 Dose: 20 mg Oxycodone/Acetaminophen (Percocet 5/325 Mg Tab) 2 tab PO Q4H PRN PRN Reason: Pain, moderate (4-7) Stop: 06/14/18 08:55 Last Admin: 06/11/18 09:19 Dose: 2 tab Pantoprazole Sodium (Protonix Ec Tab) 40 mg PO DAILY [facility] Last Admin: 06/11/18 09:19 Dose: 40 mg Sevelamer Carbonate (Renvela) 2.4 gm PO BIDCC [facility] Last Admin: 06/11/18 07:37 Dose: 2.4 gm Tamsulosin HCl (Flomax) 0.4 mg PO DAILY [facility] Last Admin: 06/11/18 09:19 Dose: 0.4 mg Vitamin A (Vitamin A & D Oint Ud Foilpak) 1 ea TOP BID [facility] Last Admin: 06/11/18 09:21 Dose: Not Given - Labs Labs: 06/11/18 06:24 06/11/18 06:24 PT 16.6 SECONDS (9.7-12.2) H 06/06/18 20:47 INR 1.5 06/06/18 20:47 APTT 38 SECONDS (21-34) H 06/06/18 20:47 - Constitutional Appears: No Acute Distress, Chronically Ill - Head Exam Head Exam: NORMAL INSPECTION, NORMOCEPHALIC - Eye Exam Eye Exam: Normal appearance, PERRL - ENT Exam ENT Exam: Mucous Membranes Moist, Normal Exam - Neck Exam Neck Exam: Full ROM, Normal Inspection - Respiratory Exam Respiratory Exam: Clear to Ausculation Bilateral, NORMAL BREATHING PATTERN - Cardiovascular Exam Cardiovascular Exam: REGULAR RHYTHM, RRR - GI/Abdominal Exam GI & Abdominal Exam: Distended, Soft - Extremities Exam Extremities Exam: Full ROM, Normal Inspection, Pedal Edema Assessment and Plan (1) ESRD (end stage renal disease) Status: Acute (2) Xanthogranulomatous pyelonephritis Status: Acute (3) Atrial fibrillation Status: Acute - Assessment and Plan (Free Text) Assessment: maintain hd chronically low bp, consider midodrine post op management, pain control
--- NOTE | 2018-06-11 22:55 | CP.PCM.PN ---
Subjective - Subjective Subjective: dictated Objective - Vital Signs/Intake and Output Vital Signs (last 24 hours): Temp Pulse Resp BP Pulse Ox 98 F 81 16 102/44 L 98 06/11/18 17:00 06/11/18 17:00 06/11/18 17:00 06/11/18 17:00 06/11/18 17:00 - Medications Medications: Current Medications Alprazolam (Xanax) 0.25 mg PO DAILY PRN PRN Reason: Anxiety Stop: 06/13/18 22:24 Calcium Acetate (Phoslo) 667 mg PO TID [facility] Last Admin: 06/11/18 18:01 Dose: 667 mg Ferric Sodium Gluconate Complex (Ferrlecit) 125 mg IVPB DAILY [facility] Stop: 06/16/18 13:01 Last Admin: 06/10/18 09:57 Dose: 125 mg Heparin Sodium (Porcine) (Heparin) 5,000 units SC Q8 [facility] Last Admin: 06/10/18 21:53 Dose: Not Given Ferric Sodium Gluconate Complex 125 mg/ Sodium Chloride 110 mls @ 110 mls/hr IVPB DAILY [facility] Stop: 06/16/18 10:01 Last Admin: 06/11/18 15:20 Dose: 110 mls/hr Lactulose (Enulose) 20 gm PO DAILY PRN PRN Reason: Constipation Last Admin: 06/11/18 09:19 Dose: 20 gm Mirtazapine (Remeron) 15 mg PO HS [facility] Last Admin: 06/11/18 21:56 Dose: 15 mg Naloxone HCl (Narcan) 0.1 mg IVP Q2M PRN PRN Reason: apnea Ondansetron HCl (Zofran Inj) 4 mg IVP DAILY PRN PRN Reason: Nausea/Vomiting Oxycodone HCl (Oxycontin Extended Release Tab) 20 mg PO Q12 [facility] Last Admin: 06/11/18 21:57 Dose: 20 mg Oxycodone/Acetaminophen (Percocet 5/325 Mg Tab) 2 tab PO Q4H PRN PRN Reason: Pain, moderate (4-7) Stop: 06/14/18 08:55 Last Admin: 06/11/18 20:25 Dose: 2 tab Pantoprazole Sodium (Protonix Ec Tab) 40 mg PO DAILY [facility] Last Admin: 06/11/18 09:19 Dose: 40 mg Sevelamer Carbonate (Renvela) 2.4 gm PO BIDCC [facility] Last Admin: 06/11/18 18:01 Dose: 2.4 gm Tamsulosin HCl (Flomax) 0.4 mg PO DAILY [facility] Last Admin: 06/11/18 09:19 Dose: 0.4 mg Vitamin A (Vitamin A & D Oint Ud Foilpak) 1 ea TOP BID [facility] Last Admin: 06/11/18 18:01 Dose: 1 ea - Labs Labs: 06/11/18 06:24 06/11/18 06:24 PT 16.6 SECONDS (9.7-12.2) H 06/06/18 20:47 INR 1.5 06/06/18 20:47 APTT 38 SECONDS (21-34) H 06/06/18 20:47
[2018-06-12] MEDS: Oxycodone/Acetaminophen 5/325 mg Tab PO PRN ×2 (02:02→08:51)
[2018-06-12 08:21] VITALS: PULSE 74
[2018-06-12 08:39] VITALS: BP 102/48; RESP 20; TEMP 98.5; O2SAT 99
[2018-06-12] MEDS: Sevelamer Carb 2.4 gm/Packet PO SCH (08:47)
--- NOTE | 2018-06-12 09:43 | CP.PCM.PN ---
Subjective - Date & Time of Evaluation Date of Evaluation: 06/12/18 Time of Evaluation: 09:41 - Subjective Subjective: seen and examined no events c/o back/abdominal pain Objective - Vital Signs/Intake and Output Vital Signs (last 24 hours): Temp Pulse Resp BP Pulse Ox 98.5 F 74 20 102/48 L 99 06/12/18 07:00 06/12/18 08:16 06/12/18 07:00 06/12/18 07:00 06/12/18 07:00 - Medications Medications: Current Medications Alprazolam (Xanax) 0.25 mg PO DAILY PRN PRN Reason: Anxiety Stop: 06/13/18 22:24 Last Admin: 06/12/18 05:40 Dose: 0.25 mg Calcium Acetate (Phoslo) 667 mg PO TID [facility] Last Admin: 06/11/18 18:01 Dose: 667 mg Ferric Sodium Gluconate Complex (Ferrlecit) 125 mg IVPB DAILY [facility] Stop: 06/16/18 13:01 Last Admin: 06/10/18 09:57 Dose: 125 mg Ferrous Sulfate (Feosol) 325 mg PO TID [facility] Heparin Sodium (Porcine) (Heparin) 5,000 units SC Q8 [facility] Last Admin: 06/12/18 05:41 Dose: Not Given Lactulose (Enulose) 20 gm PO DAILY PRN PRN Reason: Constipation Last Admin: 06/11/18 09:19 Dose: 20 gm Mirtazapine (Remeron) 15 mg PO HS [facility] Last Admin: 06/11/18 21:56 Dose: 15 mg Naloxone HCl (Narcan) 0.1 mg IVP Q2M PRN PRN Reason: apnea Ondansetron HCl (Zofran Inj) 4 mg IVP DAILY PRN PRN Reason: Nausea/Vomiting Oxycodone HCl (Oxycontin Extended Release Tab) 20 mg PO Q12 [facility] Last Admin: 06/11/18 21:57 Dose: 20 mg Oxycodone/Acetaminophen (Percocet 5/325 Mg Tab) 2 tab PO Q4H PRN PRN Reason: Pain, moderate (4-7) Stop: 06/14/18 08:55 Last Admin: 06/12/18 08:51 Dose: 2 tab Pantoprazole Sodium (Protonix Ec Tab) 40 mg PO DAILY [facility] Last Admin: 06/11/18 09:19 Dose: 40 mg Sevelamer Carbonate (Renvela) 2.4 gm PO BIDCC [facility] Last Admin: 06/12/18 08:47 Dose: 2.4 gm Tamsulosin HCl (Flomax) 0.4 mg PO DAILY [facility] Last Admin: 06/11/18 09:19 Dose: 0.4 mg Vitamin A (Vitamin A & D Oint Ud Foilpak) 1 ea TOP BID [facility] Last Admin: 06/11/18 18:01 Dose: 1 ea - Labs Labs: 06/11/18 06:24 06/11/18 06:24 PT 16.6 SECONDS (9.7-12.2) H 06/06/18 20:47 INR 1.5 06/06/18 20:47 APTT 38 SECONDS (21-34) H 06/06/18 20:47 - Constitutional Appears: No Acute Distress, Chronically Ill - Head Exam Head Exam: NORMAL INSPECTION, NORMOCEPHALIC - Eye Exam Eye Exam: Normal appearance Pupil Exam: PERRL - ENT Exam ENT Exam: Mucous Membranes Moist, Normal Exam - Neck Exam Neck Exam: Full ROM, Normal Inspection - Respiratory Exam Respiratory Exam: Clear to Ausculation Bilateral, NORMAL BREATHING PATTERN - Cardiovascular Exam Cardiovascular Exam: REGULAR RHYTHM - GI/Abdominal Exam GI & Abdominal Exam: Distended, Soft, Normal Bowel Sounds - Extremities Exam Extremities Exam: Full ROM, Normal Inspection - Neurological Exam Neurological Exam: Alert, Awake, CN II-XII Intact - Psychiatric Exam Psychiatric exam: Normal Affect, Normal Mood - Skin Skin Exam: Dry, Intact Assessment and Plan (1) ESRD (end stage renal disease) Status: Acute (2) Xanthogranulomatous pyelonephritis Status: Acute (3) Atrial fibrillation Status: Acute - Assessment and Plan (Free Text) Assessment: maintain hd mwf pain control cultures negative
[2018-06-12] MEDS: oxyCODONE 20 mg ER Tab (oxyCONTIN) PO SCH (10:29)
[2018-06-12] MEDS: Pantoprazole 40 mg EC Tab PO SCH (10:31)
[2018-06-12] MEDS: Vitamins A & D Oint UD Foilpak TOP SCH (10:32)
--- NOTE | 2018-06-12 14:31 | PCM.URO ---
Urology Progress Note - Objective Lab Studies: Reviewed (pt had cysto / stent inserted in 03/2018 we are almost at three months so soon will be time to change it in june of 2018 may plan as an out patient pt was admitted with gi bleeding currently he is in icu / on telemetry thanks for gu consult full note to be dictated) Vital Signs: Vital Signs - 24 hr 06/11/18 06/11/18 06/11/18 14:30 15:00 15:30 Temperature Pulse Rate Pulse Rate [ Bilateral * Pedal & Posterior Tibial] Respiratory Rate Blood Pressure Blood Pressure 96/45 L 94/42 L 102/41 L [Right Radial Artery] O2 Sat by Pulse Oximetry 06/11/18 06/11/18 06/11/18 16:00 16:30 17:00 Temperature 98 F Pulse Rate Pulse Rate [ 81 Bilateral * Pedal & Posterior Tibial] Respiratory 16 Rate Blood Pressure Blood Pressure 102/42 L 106/44 L 102/44 L [Right Radial Artery] O2 Sat by Pulse 98 Oximetry 06/11/18 06/11/18 06/12/18 17:30 23:25 00:00 Temperature 98.1 F Pulse Rate 80 83 81 Pulse Rate [ Bilateral * Pedal & Posterior Tibial] Respiratory 20 Rate Blood Pressure 98/42 L Blood Pressure [Right Radial Artery] O2 Sat by Pulse 98 Oximetry 06/12/18 06/12/18 06/12/18 06:02 06:20 07:00 Temperature 98.4 F 98.5 F Pulse Rate 72 73 73 Pulse Rate [ Bilateral * Pedal & Posterior Tibial] Respiratory 18 20 Rate Blood Pressure 86/34 L 88/31 L 102/48 L Blood Pressure [Right Radial Artery] O2 Sat by Pulse 98 99 Oximetry 06/12/18 08:16 Temperature Pulse Rate 73 Pulse Rate [ Bilateral * Pedal & Posterior Tibial] Respiratory Rate Blood Pressure Blood Pressure [Right Radial Artery] O2 Sat by Pulse Oximetry
--- NOTE | 2018-06-12 14:32 | PCM.URO ---
Urology Progress Note - Objective Lab Studies: Reviewed (discharge see also many dictated notes) Vital Signs: Vital Signs - 24 hr 06/11/18 06/11/18 06/11/18 15:00 15:30 16:00 Temperature Pulse Rate Pulse Rate [ Bilateral * Pedal & Posterior Tibial] Respiratory Rate Blood Pressure Blood Pressure 94/42 L 102/41 L 102/42 L [Right Radial Artery] O2 Sat by Pulse Oximetry 06/11/18 06/11/18 06/11/18 16:30 17:00 17:30 Temperature 98 F Pulse Rate 80 Pulse Rate [ 81 Bilateral * Pedal & Posterior Tibial] Respiratory 16 Rate Blood Pressure Blood Pressure 106/44 L 102/44 L [Right Radial Artery] O2 Sat by Pulse 98 Oximetry 06/11/18 06/12/18 06/12/18 23:25 00:00 06:02 Temperature 98.1 F 98.4 F Pulse Rate 83 81 72 Pulse Rate [ Bilateral * Pedal & Posterior Tibial] Respiratory 20 18 Rate Blood Pressure 98/42 L 86/34 L Blood Pressure [Right Radial Artery] O2 Sat by Pulse 98 98 Oximetry 06/12/18 06/12/18 06/12/18 06:20 07:00 08:16 Temperature 98.5 F Pulse Rate 73 73 73 Pulse Rate [ Bilateral * Pedal & Posterior Tibial] Respiratory 20 Rate Blood Pressure 88/31 L 102/48 L Blood Pressure [Right Radial Artery] O2 Sat by Pulse 99 Oximetry
--- NOTE | 2018-06-12 23:26 | CP.PCM.DIS ---
Provider - Provider Date of Admission: 06/06/18 20:19 Attending physician: Mikel Marc MD Consults: 06/06/18 22:22 Cardiology Consult Routine Comment: Consulting Provider: Naresh Schultz Consulting Physician: Naresh Schultz Reason for Consult: ai Nephrology Consult Routine Comment: Consulting Provider: Dontrell Liang Consulting Physician: Dontrell Liang Reason for Consult: ckd Urology Consult Routine Comment: Consulting Provider: Balta Ferro Consulting Physician: Balta Ferro Reason for Consult: Nephrolithiasis Hospital Course - Lab Results Lab Results: Micro Results 06/08/18 22:37 Naris MRSA Culture - Final MRSA NOT DETECTED 06/08/18 06:10 Nose MRSA Culture (Admit) - Final MRSA NOT DETECTED Most Recent Lab Values WBC 4.4 K/uL (4.8-10.8) L 06/11/18 06:24 RBC 3.11 Mil/uL (4.40-5.90) L 06/11/18 06:24 Hgb 9.6 g/dL (12.0-18.0) L 06/11/18 06:24 Hct 29.7 % (35.0-51.0) L 06/11/18 06:24 MCV 95.4 fL (80.0-94.0) H 06/11/18 06:24 MCH 30.9 pg (27.0-31.0) 06/11/18 06:24 MCHC 32.4 g/dL (33.0-37.0) L 06/11/18 06:24 RDW 19.2 % (11.5-14.5) H 06/11/18 06:24 Plt Count 200 K/uL (130-400) 06/11/18 06:24 MPV 8.0 fL (7.2-11.7) 06/11/18 06:24 Neut % (Auto) 59.6 % (50.0-75.0) 06/11/18 06:24 Lymph % (Auto) 30.1 % (20.0-40.0) 06/11/18 06:24 [place] % (Auto) 5.6 % (0.0-10.0) 06/11/18 06:24 Eos % (Auto) 3.2 % (0.0-4.0) 06/11/18 06:24 Baso % (Auto) 1.5 % (0.0-2.0) 06/11/18 06:24 Neut # (Auto) 2.6 K/uL (1.8-7.0) 06/11/18 06:24 Lymph # (Auto) 1.3 K/uL (1.0-4.3) 06/11/18 06:24 [place] # (Auto) 0.2 K/uL (0.0-0.8) 06/11/18 06:24 Eos # (Auto) 0.1 K/uL (0.0-0.7) 06/11/18 06:24 Baso # (Auto) 0.1 K/uL (0.0-0.2) 06/11/18 06:24 PT 16.6 SECONDS (9.7-12.2) H 06/06/18 20:47 INR 1.5 06/06/18 20:47 APTT 38 SECONDS (21-34) H 06/06/18 20:47 Puncture Site Luz 06/08/18 05:14 pCO2 41 mm/Hg (35-45) 06/08/18 05:14 pO2 86 mm/Hg (80-100) 06/08/18 05:14 HCO3 25.8 mmol/L (21-28) 06/08/18 05:14 ABG pH 7.41 (7.35-7.45) 06/08/18 05:14 ABG Total CO2 27.3 mmol/L (22-28) 06/08/18 05:14 ABG O2 Saturation 97.2 % (95-98) 06/08/18 05:14 ABG Base Excess 1.2 mmol/L (-2.0-3.0) 06/08/18 05:14 ABG Hemoglobin 9.9 g/dL (11.7-17.4) L 06/08/18 05:14 ABG Carboxyhemoglobin 2.5 % (0.5-1.5) H 06/08/18 05:14 POC ABG HHb (Measured) 2.7 % (0.0-5.0) 06/08/18 05:14 ABG Methemoglobin 1.1 % (0.0-3.0) 06/08/18 05:14 Maykel Test Na 06/08/18 05:14 ABG Potassium 4.4 mmol/L (3.6-5.2) 06/07/18 16:24 Hgb O2 Saturation 93.7 % (95.0-98.0) L 06/08/18 05:14 Sodium 135.0 mmol/l (132-148) 06/07/18 16:24 Chloride 101.0 mmol/L (98-107) 06/07/18 16:24 Glucose 139 mg/dl (75-110) H 06/07/18 16:24 Lactate 1.3 mmol/L (0.7-2.1) 06/07/18 16:24 Liter Flow 3.0 06/08/18 05:14 Sodium 132 mmol/L (132-148) 06/11/18 06:24 Potassium 4.2 mmol/L (3.6-5.2) 06/11/18 06:24 Chloride 93 mmol/L (98-107) L 06/11/18 06:24 Carbon Dioxide 28 mmol/L (22-30) 06/11/18 06:24 Anion Gap 15 (10-20) 06/11/18 06:24 BUN 46 mg/dL (9-20) H 06/11/18 06:24 Creatinine 8.4 mg/dL (0.8-1.5) H* D 06/11/18 06:24 Est GFR ( Amer) 8 06/11/18 06:24 Est GFR (Non-Af Amer) 7 06/11/18 06:24 Random Glucose 89 mg/dL (75-110) 06/11/18 06:24 Calcium 8.6 mg/dl (8.6-10.4) 06/11/18 06:24 Phosphorus 5.6 mg/dL (2.5-4.5) H 06/11/18 06:24 Magnesium 2.2 mg/dL (1.6-2.3) 06/11/18 06:24 Total Bilirubin 0.6 mg/dL (0.2-1.3) 06/11/18 06:24 AST 16 U/L (17-59) L D 06/11/18 06:24 ALT 11 U/L (21-72) L 06/11/18 06:24 Alkaline Phosphatase 123 U/L (38-126) 06/11/18 06:24 Total Protein 6.1 g/dL (6.3-8.3) L 06/11/18 06:24 Albumin 3.0 g/dL (3.5-5.0) L 06/11/18 06:24 Globulin 3.0 gm/dL (2.2-3.9) 06/11/18 06:24 Albumin/Globulin Ratio 1.0 (1.0-2.1) 06/11/18 06:24 Arterial Blood Potassium 4.4 mmol/L (3.6-5.2) 06/07/18 16:24 Blood Type O POSITIVE 06/07/18 11:49 Antibody Screen Negative 06/07/18 11:49 Discharge Exam - Head Exam Head Exam: NORMAL INSPECTION, NORMOCEPHALIC Discharge Plan - Follow Up Plan Condition: GOOD Disposition: HOME/ ROUTINE Instructions: Hemodialysis, Nephrectomy (DC), Ferrous Sulfate, Oxycodone, Oxycodone and Acetaminophen, Renal Failure Diet (DC) Additional Instructions: Diet and activity as tolerated. resume normal HD schedule cALL dR. GARDNER for any problems. Resume all medications previous taken at home prior to discharge
--- NOTE | 2018-06-13 06:35 | DS ---
DISCHARGE DIAGNOSES: 1. Nephrolithiasis, pyonephrosis, status post nephrectomy. 2. Chronic kidney disease, on hemodialysis. 3. Chronic hepatitis C virus infection. 4. Anxiety and depression. HISTORY OF PRESENT ILLNESS: This is a 48-year-old male, well known to me, with history of bilateral hydronephrosis, staghorn calculus, CKD, on hemodialysis because of nephrolithiasis, chronic hep C, anxiety, and depression, who was admitted for elective nephrectomy. He underwent nephrectomy postoperatively. The patient did well as he is being discharged with outpatient followup. CONDITION UPON DISCHARGE: Stable. PHYSICAL EXAMINATION: VITAL SIGNS: Blood pressure 102/48, pulse 73, respiratory rate 20, and temperature 98.5. LABORATORY DATA: WBC 4.4, hemoglobin 9.6, hematocrit 29.7, platelets 200. Sodium 132, potassium 4.2, chloride 93, bicarb 28, BUN , and creatinine 4.8. The patient was seen by Dr. Ferro. His condition is stable upon discharge. He will be followed up by me as outpatient. Mikel Marc MD
--- NOTE | 2018-06-13 11:42 | PN ---
DATE: 06/08/2018 SUBJECTIVE: See the history and physical. See the operative note from 06/07/2018. The patient is currently in the ICU resting comfortably. Complaining of pain, but otherwise unremarkable. Of course, no urine output. Now, he is a dialysis patient, he is currently anephric. The patient is currently resting comfortably. REVIEW OF SYSTEMS: Listed above. Otherwise no changes. PHYSICAL EXAMINATION: GENERAL: Well nourished male, he is currently resting comfortably. VITAL SIGNS: Noted within normal limits. DIAGNOSIS: Recurrent urinary tract infections, heavy stone burden, anephric patient now, dialysis patient. PLAN: The plan is as follows: See the history and physical and the operative note for further details on the whole process. The patient is a very pleasant young gentleman who needs a new aortic valve who has such a heavy stone burden that despite multiple attempts and cystourethroscopy, percutaneous treatments, we just could not get rid of the stone. We were not able to make him stone free. He keeps getting recurrent infections, and we would not consider doing anything with the heart valve while he was getting recurrent infections. He has a very complicated long history. So, at this point, after many discussions and many options, the patient is now status post a nephrectomy. He is in the ICU. We are going to continue on him, and the patient when he is doing better, we are going to transfer him upstairs as per the ICU team. Further plans will follow. Celso Ferro MD
--- NOTE | 2018-06-13 11:42 | PN ---
DATE: 06/10/2018 NOTE TO THE CHART SUBJECTIVE: The patient is status post a right nephrectomy. He is currently resting comfortably. No other urologic changes are noted. He is resting on the floor. He is otherwise unremarkable. PHYSICAL EXAMINATION: VITAL SIGNS: Normal. See the other chart notes. From a Urology standpoint, the diagnosis is status post a right nephrectomy for recurrent infections, urosepsis, kidney stone disease. In a patient with dialysis and renal failure. So the plan is follows: Continue monitoring the patient, postop analgesics, pulmonary toilet, ambulation, and dialysis. Further plans will follow. Celso Ferro MD
--- NOTE | 2018-06-14 03:46 | DS ---
DISCHARGE DIAGNOSES: 1. Renal failure. 2. Dialysis dependence. 3. Recurrent infections. 4. Heavy stone burden causing recurrent infections. 5. Aortic valve problems. 6. Multiple medical issues as dictated on the chart. See the history and physical and operative notes and multiple progress notes. In brief, a very pleasant gentleman who we have known for quite some time. Seen many previous hospital admissions. He was here for an extensive period of time. He has had abdominal surgery. He had some kind of vascular event to his bowel that required surgery. All that is dictated elsewhere to suggest the summary of this. Most likely that represents some kind of embolic event. So now the patient we tried clearing his kidney. He had tremendous stone burden, both left and right kidney. I have known the patient for years. Summary of his care at this point is as follows. He had previously had a left nephrectomy. At this point, he did not want to go back for robotic surgery. I discussed with him my recommendation and my strong recommendation was to go back but he just found it difficult. He found that his wound not be able to travel to visit him. After discussing all the options, he came in now for nephrectomy on the right side. He also has aortic valve issues that are to be resolved, but the sas programmer analyst wants the kidney stones to be removed. So we discussed the options. We discussed percutaneous treatment. He had tried percutaneous treatment several times. This did not work out well. We tried ureteroscopy. He had multiple procedures. After discussing all the options, the patient then underwent nephrectomy. His hospital course was essentially uncomplicated, pain management was performed. At this point, he is being discharged home in stable condition. Pain is under control. He will be discharged home on pain medicine, and then for followup, he is going to be speaking to Dr. Marc for pain management control. Further plans are to follow. At the time of discharge, he is stable. We have cleared his discharge with Dr. Marc. The remainder of the discharge will be done also through Dr. Marc, just want to put the urology notes on for completion purposes. So at this point, he is anephric. He has been given warning about recommendations. Fluid restrictions, etc, have also been followed by Renal. From urology's standpoint again though we have removed his kidney, he has had no further stone disease. We will periodically need to check his bladder to make sure that his bladder is empty to its bottom. Otherwise, unremarkable. We will continue to follow the patient closely. He is going to be coming to my office on 06/19/2018 to remove the [place]. At this point, we have removed his [place]. The wound looks intact. Otherwise, unremarkable. Celso Ferro MD
== END 2018-06-12 14:56 | disposition home or self-care (01) | DRG 567 ==
LOC: C.ER 19:48 → C.9E 20:19 → C.5S 21:28 → C.9I 06-07 17:41 → C.6T 06-08 17:10
PROVIDERS: ADMIT Internal Medicine; ATTEND Internal Medicine
PROC: 0TC Urinary System, Extirpation (ICD-10-PCS; 2018-06-07)
PROC: 0TP90DZ Removal of Intraluminal Device from Ureter, Open Approach (ICD-10-PCS; 2018-06-07)
PROC: 0TT00ZZ Resection of Right Kidney, Open Approach (ICD-10-PCS; principal; 2018-06-07 14:15)
PROC: 5A1D70Z Performance of Urinary Filtration, Intermittent, Less than 6 Hours Per Day (ICD-10-PCS; 2018-06-11)
DX: N20.0 Calculus of kidney (principal); T82.6XXA Infection and inflammatory reaction due to cardiac valve prosthesis, initial encounter; B18.2 Chronic viral hepatitis C; F11.20 Opioid dependence, uncomplicated; N18.6 End stage renal disease; I13.2 Hypertensive heart and chronic kidney disease with heart failure and with stage 5 chronic kidney disease, or end stage renal disease; I50.9 Heart failure, unspecified; N12 Tubulo-interstitial nephritis, not specified as acute or chronic; F17.210 Nicotine dependence, cigarettes, uncomplicated; F32.9 Major depressive disorder, single episode, unspecified; F41.9 Anxiety disorder, unspecified; Z87.442 Personal history of urinary calculi; Z99.2 Dependence on renal dialysis; Z91.11 Patient's noncompliance with dietary regimen; Z90.5 Acquired absence of kidney; Z86.711 Personal history of pulmonary embolism; I48.91 Unspecified atrial fibrillation; Y83.8 Other surgical procedures as the cause of abnormal reaction of the patient, or of later complication, without mention of misadventure at the time of the procedure; N13.8 Other obstructive and reflux uropathy

== ENCOUNTER 2018-07-16 12:53 | Inpatient (IN) | payer OTHER ==
[2018-07-16 13:42] VITALS: BMI 25.0
[2018-07-16 14:34] LABS: BASO % 0.8 % (0.0-2.0); EOS # 0.1 K/uL (0.0-0.7); HEMOGLOBIN 10.1 g/dL (12.0-18.0); LYMPH # 1.4 K/uL (1.0-4.3); LYMPH % 31.1 % (20.0-40.0); MEAN CELL VOLUME 95.2 fL (80.0-94.0); MEAN CORPUSCULAR HEMOGLOBIN 31.4 pg (27.0-31.0); MEAN PLATELET VOLUME 8.4 fL (7.2-11.7); MONO # 0.3 K/uL (0.0-0.8); MONO % 6.6 % (0.0-10.0); NEUT # 2.6 K/uL (1.8-7.0); NEUT % 59.5 % (50.0-75.0); NRBC % 0.1 % (0.0-2.0); RBC 3.23 Mil/uL (4.40-5.90); RED CELL DISTRIBUTION WIDTH 19.4 % (11.5-14.5); WHITE BLOOD COUNT 4.4 K/uL (4.8-10.8)
[2018-07-16 14:46] LABS: ALB/GLOB RATIO 1.1 (1.0-2.1); ALBUMIN 3.9 g/dL (3.5-5.0); ALT/SGPT 14 U/L (21-72); AST/SGOT 20 U/L (17-59); BLOOD UREA NITROGEN 39 mg/dL (9-20); CALCIUM 8.8 mg/dl (8.6-10.4); GFR NON-AFRICAN AMERICAN 12
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
--- NOTE | 2018-07-16 16:19 | PCM.BM ---
<Rafael Washington - Last Filed: 07/16/18 16:17> Treatment Plan Problems - Problems identified on initial assessmt denial Date Initiated: 07/16/18 Time Initiated: 16:17 Assessment reference: NA Status: Active defensive coping Date Initiated: 07/16/18 Time Initiated: 16:18 Assessment reference: NA Status: Active hopelessness Date Initiated: 07/16/18 Time Initiated: 16:19 Assessment reference: NA Status: Active Treatment assets and liabiliti Patient Assests: adapts well, cooperative, cognitively intact Patient Liabilities: substance abuse, medical problems - Milieu Protocol Maintain good personal hygiene: daily Encourage regular showers, daily Remind patient to perform daily oral care, daily Assist patient to perform ADL's Conduct patient checks and document Observation sheet: Q15 minutes Maintain personal safety: every shift Educate patient to report safety concerns to staff, every shift Monitor environment for contraband/sharps Medication safety: Monitor for expected outcome, potential side effects: every shift, Assess barriers to learning: every shift, Assess readiness for medication education: every shift <Renetta Johnson - Last Filed: 07/19/18 13:13> Family Contact Family involvement: No known Family/SO - Goals for Treatment Patient goals for treatment: Complete detox and transition to a MAT program. Discharge/Continuing Care - Education Needs Education Needs: Patient Medication, Patient Diagnosis/Disease Process, Patient Coping Skills, Patient Anger Management skills, Patient Placement options, Patient Community resources - Discharge Discharge Criteria: No longer exhibiting s/s of withdrawal, Reduction of target symptoms Discharge to:: Home - Treatment Team Participation Patient/Family/SO Statement: 07/19/18 13:13 "I [facility] go to [facility] for methadone..." Discussed with Family/SO: No Was Patient/Family/SO present at Treatment Team Meeting: Yes
[2018-07-16] MEDS ORDERED: Buprenorphine Hydrochloride 2 mg SL ONE ×3 (21:25→22:25)
[2018-07-16] MEDS ORDERED: Aluminum Hydroxide/Magnesium Hydroxide Susp (30 mL) PO PRN (22:03)
[2018-07-17] MEDS ORDERED: Buprenorphine Hydrochloride 2 mg SL ONE (00:57)
[2018-07-17] MEDS: Sevelamer Carb 2.4 gm/Packet PO SCH ×2 (08:27→17:13)
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
[2018-07-17] MEDS: Pantoprazole 40 mg EC Tab PO SCH (10:08)
[2018-07-17] MEDS: Buprenorphine Hydrochloride 2 mg SL SCH (10:09)
--- NOTE | 2018-07-17 11:34 | PCM.PSYCH ---
Initial Psychiatric Evaluation - Initial Psychiatric Evaluation Type of Admission: Voluntary Legal Status: Capacity Chief Complaint (in patient's own words): "I want to be clean" History of Present Illness and Precipitating Events: Patient is a 48 -year-old, male who is single, unemployed, and living with his daughter. He has 2 children, ages 26 and 21. He presents for heroin detox. Pt is a hemodialysis patient and has been turned down from other detoxes b/c of it. He admits to using 60-70 bags of heroin, intravascularly, daily. He has been using heroin since he was 18 years old with his longest sobriety being 5 years before relapsing in 2000. Patient denies having a history of heroin overdoses. Patient denies using alcohol, cocaine, pills, cigarettes and other substance use. He also denies having a history of DTs, seizures, or blackouts. This is his 1st time in detox. Patient denies ever going to rehab or being on any maintenance drugs. He complains of not being able to sleep, body aches, diarrhea, and abdominal pain. Patient denies any suicidal or homicidal ideation, hallucinations, and paranoia. Past Psychiatric History: Depression Family Psych History: none PMHx: Hep. C, A. fib, ESRD with hemodialysis on (MWF) from [facility] in [place], HTN Meds: sevelamer 2.4 gm PO BID, tamsulosin 0.4mg PO daily, Procrit 6,000 unit IV MWF, calcium acetate 667 mg PO TID Current Medications: Active Medications Generic Name Dose Route Start Last Admin Trade Name Freq PRN Reason Stop Dose Admin Acetaminophen 650 mg 07/16/18 22:04 07/17/18 00:34 Tylenol 325mg Tab PO 650 mg Q6 PRN Administration Pain, moderate (4-7) Al Hydrox/Mg Hydrox/Simethicone 30 ml 07/16/18 22:03 Maalox 30 Ml PO TID PRN Indigestion / Heartburn Buprenorphine HCl 8 mg 07/17/18 10:00 07/17/18 10:09 Subutex SL 07/22/18 09:59 8 mg DAILY LEE Administration Taper Calcium Acetate 667 mg 07/17/18 10:00 07/17/18 10:08 Phoslo PO 667 mg TID LEE Administration Clonidine HCl 0.1 mg 07/16/18 22:03 07/17/18 00:34 Catapres PO 0.1 mg Q4 PRN Administration COWS Score More or Equal to 5 Dicyclomine HCl 10 mg 07/17/18 02:00 Bentyl PO Q6 PRN Muscle spasm Diphenhydramine HCl 25 mg 07/16/18 22:04 07/16/18 23:21 Benadryl PO 25 mg Q4H PRN Administration itching, anxiety Epoetin Zain 6,000 unit 07/18/18 09:00 Procrit IV MWF LEE Loperamide HCl 2 mg 07/16/18 22:03 Imodium PO Q8 PRN Diarrhea Mirtazapine 15 mg 07/16/18 22:15 07/16/18 22:18 Remeron PO 15 mg HS LEE Administration Ondansetron HCl 4 mg 07/16/18 22:03 Zofran Tab PO Q8 PRN Nausea/Vomiting Pantoprazole Sodium 40 mg 07/17/18 10:00 07/17/18 10:08 Protonix Ec Tab PO 40 mg DAILY LEE Administration Sevelamer Carbonate 2.4 gm 07/17/18 08:00 07/17/18 08:27 Renvela PO 2.4 gm BIDCC LEE Administration Tamsulosin HCl 0.4 mg 07/17/18 10:00 07/17/18 10:08 Flomax PO 0.4 mg DAILY LEE Administration Trazodone HCl 100 mg 07/16/18 23:53 07/16/18 23:59 Desyrel PO 100 mg HS PRN Administration Insomnia Past Psychiatric History - Past Psychiatric History Pertinent Medical Hx (Current Medical&Sleep Prob, Allergies): Allergies Allergy/AdvReac Type Severity Reaction Status Date / Time No Known Allergies Allergy Verified 07/16/18 13:41 Pantoprazole [Protonix EC Tab] 40 mg PO DAILY #30 ect 06/28/17 Calcium Acetate [Phoslo] 667 mg PO TID #90 tab 04/23/18 Sevelamer Carbonate [Renvela] 2.4 gm PO BIDCC #60 packet 04/23/18 Tamsulosin [Flomax] 0.4 mg PO DAILY #30 cap 04/23/18 ALPRAZolam [Xanax] 0.25 mg PO DAILY PRN #10 tab 05/30/18 Mirtazapine [Remeron] 15 mg PO HS #15 tablet 05/30/18 oxyCODONE/Acetaminophen [Percocet 5/325 mg Tab] 1 ea PO Q6H PRN #20 tab 05/30/18 Review of Systems - Psychiatric Psychiatric: Abnormal Sleep Pattern, Anhedonia, Anxiety, Behavioral Changes, Change in Appetite, Confusion, Depression, Difficulty Concentrating, Irritability, Mood Swings. absent: Hallucinations, Suicidal Ideation Mental Status Examination - Personal Presentation Personal Presentation: Looks stated age - Affect Affect: Constricted - Motor Activity Motor Activity: Other (restless) - Reliability in Providing Information Reliability in Providing Information: Poor, due to altered mood - Speech Speech: Organized - Mood Mood: Anxious - Formal Thought Process Formal Thought Process: No Impairment - Obsessions/Compulsions Obsessions: No Compulsions: No - Cognitive Functions Orientation: Person, Place, Situation, Time Sensorium: Drowsy Attention/Concentration: Easily distracted Abstract Thinking: Stem Estimate of Intelligence: Average Judgement: Intact, as evidence by: Insight regarding need for hospitalization Memory: Recent intact, as evidence by: Ability to recall events of the day - Risk Risk: Withdrawal, Diminished functioning - Strength & Assets Inventory Strength & Assets Inventory: Family support, Cooperative - Limitations Limitations: Other DSM 5 DX - DSM 5 DSM 5 Diagnosis: Opioid withdrawal Opioid use disorder, severe Depressive d/o - unspecified ESRD - Recommended/Plan of Treatment Treatment Recommendations and Plan of Treatment: Taper with subutex continue patient's medication - sevelamer 2.4 gm PO BID, tamsulosin 0.4mg PO daily, Procrit 6,000 unit IV MWF, calcium acetate 667 mg PO TID As needed medications All risks, benefits and alternatives of the meds discussed, and the pt agreed and understood. Attend groups and activities Supportive therapy and psychoeducation NE for abstinence CBT for relapse prevention Encourage MAT Refer to rehab or IOP, and self-help groups Teach healthy lifestyle methods, i.e. diet, exercise, meditation Smoking cessation with NE Nicotine patch if needed 34 min Projected ELOS: 4-5 days Prognosis: good with treatment - Smoking Cessation Smoking Cessation Initiated: Yes
[2018-07-17] MEDS ORDERED: Buprenorphine Hydrochloride 2 mg SL SCH (22:06)
[2018-07-18] MEDS: Sevelamer Carb 2.4 gm/Packet PO SCH ×2 (08:40→17:09)
[2018-07-18] MEDS ORDERED: Epoetin Alfa Dialysis 3000 UNIT/ML Inj IV SCH (09:00)
[2018-07-18] MEDS: Pantoprazole 40 mg EC Tab PO SCH (09:21)
[2018-07-18] MEDS: Buprenorphine Hydrochloride 2 mg SL SCH (09:22)
--- NOTE | 2018-07-18 14:27 | CP.PCM.PN ---
Subjective - Date & Time of Evaluation Date of Evaluation: 07/18/18 Time of Evaluation: 14:25 - Subjective Subjective: Seen pre dialysis on detox floor- recent heroine OD dialysis going well so far Objective - Vital Signs/Intake and Output Vital Signs (last 24 hours): Temp Pulse Resp BP Pulse Ox 98.0 F 76 18 99/53 L 98 07/18/18 09:00 07/18/18 09:00 07/18/18 09:00 07/18/18 09:00 07/18/18 09:00 - Medications Medications: Current Medications Acetaminophen (Tylenol 325mg Tab) 650 mg PO Q6 PRN PRN Reason: Pain, moderate (4-7) Last Admin: 07/17/18 00:34 Dose: 650 mg Al Hydrox/Mg Hydrox/Simethicone (Maalox 30 Ml) 30 ml PO TID PRN PRN Reason: Indigestion / Heartburn Buprenorphine HCl (Subutex) 6 mg SL DAILY [facility]; Taper Stop: 07/22/18 09:59 Last Admin: 07/18/18 09:22 Dose: 6 mg Calcium Acetate (Phoslo) 667 mg PO TID [facility] Last Admin: 07/18/18 14:13 Dose: Not Given Clonidine HCl (Catapres) 0.1 mg PO Q4 PRN PRN Reason: COWS Score More or Equal to 5 Last Admin: 07/17/18 00:34 Dose: 0.1 mg Dicyclomine HCl (Bentyl) 10 mg PO Q6 PRN PRN Reason: Muscle spasm Diphenhydramine HCl (Benadryl) 25 mg PO Q4H PRN PRN Reason: itching, anxiety Last Admin: 07/16/18 23:21 Dose: 25 mg Epoetin Zain (Procrit) 6,000 unit IV F [facility] Loperamide HCl (Imodium) 2 mg PO Q8 PRN PRN Reason: Diarrhea Mirtazapine (Remeron) 15 mg PO HS [facility] Last Admin: 07/17/18 22:33 Dose: Not Given Ondansetron HCl (Zofran Tab) 4 mg PO Q8 PRN PRN Reason: Nausea/Vomiting Pantoprazole Sodium (Protonix Ec Tab) 40 mg PO DAILY [facility] Last Admin: 07/18/18 09:21 Dose: 40 mg Sevelamer Carbonate (Renvela) 2.4 gm PO BIDCC [facility] Last Admin: 07/18/18 08:40 Dose: 2.4 gm Tamsulosin HCl (Flomax) 0.4 mg PO DAILY [facility] Last Admin: 07/18/18 09:21 Dose: 0.4 mg Trazodone HCl (Desyrel) 100 mg PO HS PRN PRN Reason: Insomnia Last Admin: 07/16/18 23:59 Dose: 100 mg - Labs Labs: 07/16/18 14:28 07/16/18 14:28 - Constitutional Appears: No Acute Distress, Chronically Ill - Head Exam Head Exam: ATRAUMATIC, NORMAL INSPECTION - Eye Exam Eye Exam: EOMI, Normal appearance - Neck Exam Neck Exam: Normal Inspection. absent: Tenderness - Respiratory Exam Respiratory Exam: Clear to Ausculation Bilateral, NORMAL BREATHING PATTERN - Cardiovascular Exam Cardiovascular Exam: REGULAR RHYTHM, +S1 - GI/Abdominal Exam GI & Abdominal Exam: Soft. absent: Tenderness - Extremities Exam Extremities Exam: Normal Inspection. absent: Tenderness - Neurological Exam Neurological Exam: Awake, CN II-XII Intact - Skin Skin Exam: Dry, Warm Assessment and Plan (1) Heroin use disorder, severe Status: Acute (2) Xanthogranulomatous pyelonephritis Status: Acute - Assessment and Plan (Free Text) Plan: Same dialysis MWF follow up labs detox regimen
--- NOTE | 2018-07-18 15:42 | PCM.PYCHPN ---
Psychiatric Progress Note - Psychiatric Progress Note Patient seen today, length of contact: 16 min Patient Chief Complaint: "Tired" Problems Identified/Issues Discussed: The pt is seen, chart reviewed, case discussed with staff. Support and psychoeducation given, CBT and IA used briefly No new symptoms reported, improving slowly and needs more time No SEs from medications, risks discussed. Somewhat isolated After care discussed Medication Change: Yes (detox changes daily) Medical Record Reviewed: Yes Mental Status Examination - Cognitive Function Orientation: Person, Place, Situation, Time Memory: Intact Attention: WNL Concentration: Poor Association: WNL Fund of Knowledge: WNL - Mood Mood: Anxious - Affect Affect: Constricted - Speech Speech: Appropriate - Formal Thought Process Formal Thought Process: No Impairment - Suicidal Ideation Suicidal Ideation: No - Homicidal Ideation Homicidal Ideation: No Goal/Treatment Plan - Goal/Treatment Plan Need for Continued Stay: Discharge may exacerbated symptoms, Severe functional impairment Progress Toward Problem(s) and Goals/Treatment Plan: Taper with subutex continue patient's medication - sevelamer 2.4 gm PO BID, tamsulosin 0.4mg PO daily, Procrit 6,000 unit IV MWF, calcium acetate 667 mg PO TID As needed medications All risks, benefits and alternatives of the meds discussed, and the pt agreed and understood. Attend groups and activities Supportive therapy and psychoeducation IA for abstinence CBT for relapse prevention Encourage MAT Refer to rehab or IOP, and self-help groups Teach healthy lifestyle methods, i.e. diet, exercise, meditation Smoking cessation with IA Nicotine patch if needed Estimated Date of D/C: 07/21/18
[2018-07-19] MEDS: Sevelamer Carb 2.4 gm/Packet PO SCH ×2 (08:31→16:56)
[2018-07-19] MEDS: Buprenorphine Hydrochloride 2 mg SL SCH (09:21)
[2018-07-19] MEDS: Pantoprazole 40 mg EC Tab PO SCH (09:21)
[2018-07-19 10:32] VITALS: RESP 18
--- NOTE | 2018-07-19 13:01 | PCM.PYCHPN ---
Psychiatric Progress Note - Psychiatric Progress Note Patient seen today, length of contact: 16 min Patient Chief Complaint: "I'm a little bit better" Problems Identified/Issues Discussed: The pt is seen, chart reviewed, case discussed with staff. The pt is compliant with medications and reports no side-effects. Symptoms are improving but needs more time to stabilize. Pt attends groups and activities. Support given, psycho-education provided. After care discussed. Medication Change: Yes (detox changes daily) Medical Record Reviewed: Yes Mental Status Examination - Cognitive Function Orientation: Person, Place, Situation, Time Memory: Intact Attention: WNL Concentration: Poor Association: WNL Fund of Knowledge: WNL - Mood Mood: Anxious - Affect Affect: Constricted - Speech Speech: Appropriate - Formal Thought Process Formal Thought Process: No Impairment - Suicidal Ideation Suicidal Ideation: No - Homicidal Ideation Homicidal Ideation: No Goal/Treatment Plan - Goal/Treatment Plan Need for Continued Stay: Discharge may exacerbated symptoms, Severe functional impairment Progress Toward Problem(s) and Goals/Treatment Plan: Taper with subutex continue patient's medication - sevelamer 2.4 gm PO BID, tamsulosin 0.4mg PO daily, Procrit 6,000 unit IV MWF, calcium acetate 667 mg PO TID As needed medications All risks, benefits and alternatives of the meds discussed, and the pt agreed and understood. Attend groups and activities Supportive therapy and psychoeducation ID for abstinence CBT for relapse prevention Encourage MAT Refer to rehab or IOP, and self-help groups Teach healthy lifestyle methods, i.e. diet, exercise, meditation Smoking cessation with ID Nicotine patch if needed Estimated Date of D/C: 07/21/18
[2018-07-20] MEDS: Sevelamer Carb 2.4 gm/Packet PO SCH (08:45)
--- NOTE | 2018-07-20 08:57 | PCM.PYCHDC ---
Mental Status Examination - Mental Status Examination Orientation: Person Discharge Summary - Discharge Note Consultations:: List each consultation separately and include: 1. Reason for request. 2. Findings. 3. Follow-up Summary of Hospital Course include:: 1. Description of specific treatment plan utilized for patients during their course of treatmen. 2. Summarize the time- course for resolution of acute symptoms and/or regressed behaviors. 3. Describe issues identified and worked on during hospitalization. 4. Describe medication utilized. 5. Describe medical problems identified and treated. 6. Reassessment of suicide risk Summary of Hospital Course: Patient is a 48 -year-old, male who is single, unemployed, and living with his daughter. He has 2 children, ages 26 and 21. He presents for heroin detox. Pt is a hemodialysis patient and has been turned down from other detoxes b/c of it. He admits to using 60-70 bags of heroin, intravascularly, daily. He has been using heroin since he was 18 years old with his longest sobriety being 5 years before relapsing in 2000. Patient denies having a history of heroin overdoses. Patient denies using alcohol, cocaine, pills, cigarettes and other substance use. He also denies having a history of DTs, seizures, or blackouts. This is his 1st time in detox. Patient denies ever going to rehab or being on any maintenance drugs. He complains of not being able to sleep, body aches, diarrhea, and abdominal pain. Patient denies any suicidal or homicidal ideation, hallucinations, and paranoia. Past Psychiatric History: Depression Family Psych History: none PMHx: Hep. C, A. fib, ESRD with hemodialysis on (MWF) from [facility] in [place], HTN Meds: sevelamer 2.4 gm PO BID, tamsulosin 0.4mg PO daily, Procrit 6,000 unit IV MWF, calcium acetate 667 mg PO TID He will go to [facility] - Final Diagnosis (DSM 5) Condition upon Discharge: STABLE Disposition: HOME/ ROUTINE Follow-up Treatment Plan: Taper with subutex continue patient's medication - sevelamer 2.4 gm PO BID, tamsulosin 0.4mg PO daily, Procrit 6,000 unit IV MWF, calcium acetate 667 mg PO TID As needed medications All risks, benefits and alternatives of the meds discussed, and the pt agreed and understood. Attend groups and activities Supportive therapy and psychoeducation NV for abstinence CBT for relapse prevention Encourage MAT Refer to rehab or IOP, and self-help groups Teach healthy lifestyle methods, i.e. diet, exercise, meditation Smoking cessation with NV Nicotine patch if needed Prescriptions/Medication Reconciliation: Mirtazapine [Remeron] 15 mg PO HS #30 tab Pantoprazole [Protonix EC Tab] 40 mg PO DAILY #30 ect traZODone [Desyrel] 100 mg PO HS PRN #30 tab PRN Reason: Insomnia
[2018-07-20] MEDS: Pantoprazole 40 mg EC Tab PO SCH (09:05)
[2018-07-20] MEDS: Buprenorphine Hydrochloride 2 mg SL SCH (09:07)
[2018-07-20 10:33] VITALS: BP 99/65; PULSE 78; TEMP 97.8; O2SAT 100
== END 2018-07-20 11:10 | disposition home or self-care (01) | DRG 744 ==
LOC: C.ER 12:53 → C.7D 15:50
PROVIDERS: ADMIT Psychiatry & Neurology Psychiatry; ATTEND Psychiatry & Neurology Psychiatry
PROC: HZ2ZZZZ Detoxification Services for Substance Abuse Treatment (ICD-10-PCS; principal; 2018-07-16)
PROC: HZ80ZZZ Medication Management for Substance Abuse Treatment, Nicotine Replacement (ICD-10-PCS; 2018-07-16)
PROC: HZ46ZZZ Group Counseling for Substance Abuse Treatment, Psychoeducation (ICD-10-PCS; 2018-07-16)
PROC: GZ3ZZZZ Medication Management (ICD-10-PCS; 2018-07-16)
PROC: HZ59ZZZ Individual Psychotherapy for Substance Abuse Treatment, Supportive (ICD-10-PCS; 2018-07-16)
PROC: 5A1D70Z Performance of Urinary Filtration, Intermittent, Less than 6 Hours Per Day (ICD-10-PCS; 2018-07-17)
PROC: 5A1D70Z Performance of Urinary Filtration, Intermittent, Less than 6 Hours Per Day (ICD-10-PCS; 2018-07-18)
DX: F11.23 Opioid dependence with withdrawal (principal); F32.9 Major depressive disorder, single episode, unspecified; F17.210 Nicotine dependence, cigarettes, uncomplicated; I12.0 Hypertensive chronic kidney disease with stage 5 chronic kidney disease or end stage renal disease; N18.6 End stage renal disease; N12 Tubulo-interstitial nephritis, not specified as acute or chronic; B19.20 Unspecified viral hepatitis C without hepatic coma; I35.1 Nonrheumatic aortic (valve) insufficiency; B18.2 Chronic viral hepatitis C; G40.909 Epilepsy, unspecified, not intractable, without status epilepticus; I38 Endocarditis, valve unspecified; F19.10 Other psychoactive substance abuse, uncomplicated; I48.91 Unspecified atrial fibrillation; Z86.711 Personal history of pulmonary embolism; Z87.440 Personal history of urinary (tract) infections; Z87.442 Personal history of urinary calculi; Z90.5 Acquired absence of kidney; Z99.2 Dependence on renal dialysis

== ENCOUNTER 2018-08-04 08:57 | Inpatient (IN) | payer OTHER ==
[2018-08-04 08:58] VITALS: BMI 25.0
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
[2018-08-04] MEDS ORDERED: Digoxin 500 mcg/2ml (0.5 mg/2ml) Inj IVP STA (09:30)
[2018-08-04] MEDS ORDERED: Metoprolol 1 mg/ml Inj IVP STA (09:31)
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
[2018-08-04] MEDS ORDERED: Digoxin 500 mcg/2ml (0.5 mg/2ml) Inj ONE (10:05)
[2018-08-04 10:10] LABS: BASO % 0.3 % (0.0-2.0); EOS % 0.4 % (0.0-4.0); HEMOGLOBIN 10.9 g/dL (12.0-18.0); LYMPH # 0.5 K/uL (1.0-4.3); LYMPH % 4.8 % (20.0-40.0); MEAN CELL VOLUME 95.7 fL (80.0-94.0); MEAN CORPUSCULAR HEMOGLOBIN 30.7 pg (27.0-31.0); MEAN CORPUSCULAR HGB CONC 32.1 g/dL (33.0-37.0); MEAN PLATELET VOLUME 9.6 fL (7.2-11.7); MONO # 0.1 K/uL (0.0-0.8); MONO % 0.7 % (0.0-10.0); NEUT # 9.6 K/uL (1.8-7.0); NEUT % 93.8 % (50.0-75.0); NRBC % 0.1 % (0.0-2.0); RBC 3.56 Mil/uL (4.40-5.90); RED CELL DISTRIBUTION WIDTH 18.9 % (11.5-14.5)
[2018-08-04 10:16] LABS: WHITE BLOOD COUNT 10.2 K/uL (4.8-10.8)
[2018-08-04 10:17] LABS: PLATELET COUNT 111 K/uL (130-400)
[2018-08-04 10:22] LABS: ALB/GLOB RATIO 0.9 (1.0-2.1); ALBUMIN 3.6 g/dL (3.5-5.0); CALCIUM 9.3 mg/dl (8.6-10.4); INR 1.6; PROTHROMBIN TIME 17.2 SECONDS (9.7-12.2)
[2018-08-04 10:29] LABS: CK-MB 8.86 ng/mL (0.0-3.38)
[2018-08-04 11:07] LABS: BANDS 4 % (0-2); LYMPHOCYTE 3 % (20-40); MONOCYTE 2 % (0-10); NEUTROPHIL 91 % (50-75); PLATELET ESTIMATE SLIGHTLY DECREASED (NORMAL); TOTAL CELLS COUNTED 100
[2018-08-04 11:08] LABS: ANISOCYTOSIS MODERATE; OVALOCYTES SLIGHT; POIKILOCYTOSIS SLIGHT; TOXIC GRANULATION PRESENT
[2018-08-04 11:09] LABS: HYPOCHROMIC SLIGHT; POLYCHROMIC SLIGHT
[2018-08-04 11:10] LABS: GIANT PLATELETS PRESENT; LARGE PLATELETS PRESENT
[2018-08-04 11:11] LABS: TROPONIN I 1.23 ng/mL (0.00-0.120)
[2018-08-04] MEDS ORDERED: Iodixanol 320 MG/ML 100 ML BOTTLE IV ONE (11:21)
[2018-08-04 12:23] LABS: VENOUS BLOOD GAS BASE EXCESS 7.2 mmol/L (0.0-2.0); VENOUS BLOOD GAS PCO2 51 mmHg (40-60); VENOUS BLOOD GAS PO2 14 mm/Hg (30-55); VENOUS BLOOD PH 7.42 (7.32-7.43)
--- NOTE | 2018-08-04 12:23 | CT ---
Date of service: 08/04/2018 PROCEDURE: CT Chest, Abdomen and Pelvis with intravenous contrast HISTORY: right sided pain, h/o ESRD on HD, IVDA COMPARISON: 05/09/2018 CT angiogram abdomen/pelvis TECHNIQUE: IV dose administered: 100 mL Visipaque 320 Radiation dose: Total exam DLP = 511.83 mGy-cm. This CT exam was performed using one or more of the following dose reduction techniques: Automated exposure control, adjustment of the mA and/or kV according to patient size, and/or use of iterative reconstruction technique. FINDINGS: CT CHEST WITH CONTRAST: LUNGS: Linear pleural-based scar or atelectasis in the left lower lobe. No infiltrate. No pulmonary mass. MEDIASTINUM: Unremarkable. Normal caliber aorta and pulmonary arterial trunk. No aortic dissection. Normal size heart. LYMPH NODES: Unremarkable. PLEURA: Unremarkable. No pneumothorax. No pleural fluid. BONES: Unremarkable. OTHER FINDINGS: None. CT ABDOMEN AND PELVIS: LIVER: Hepatomegaly. Smooth contour. No mass. No biliary dilatation. GALLBLADDER AND BILE DUCTS: No cholelithiasis. No mural thickening. Pericholecystic fluid is seen in the setting of generalized ascites and is of no specific significance. PANCREAS: Unremarkable. No gross lesion or ductal dilatation. SPLEEN: Splenomegaly. The spleen measures approximately 16.4 cm in greatest dimension. No focal mass. ADRENALS: Unremarkable. No mass. KIDNEYS AND URETERS: Status post bilateral nephrectomy. Previous hydronephrotic right kidney with staghorn calculus has been removed. Status post earlier left nephrectomy. VASCULATURE: No aortic atherosclerotic calcification or mural plaque present. There is atherosclerotic calcification of the abdominal aorta. BOWEL: Unremarkable. No obstruction. No gross mural thickening. Postoperative changes are seen at the cecal apex. APPENDIX: Not identified. No secondary findings to suggest acute appendicitis. PERITONEUM: Generalized ascites noted. The extent of ascites is unchanged from prior CT examination. No pneumoperitoneum appreciated LYMPH NODES: Unremarkable. No enlarged lymph nodes. 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 OTHER FINDINGS: None. IMPRESSION: Ascites. Hepatosplenomegaly. Status post bilateral nephrectomy. Postoperative changes at cecal apex. Appendix not identified. Correlate with history. No evidence of cholelithiasis or cholecystitis. No significant thoracic abnormality.
[2018-08-04] MEDS ORDERED: Verapamil 2 ML ONE ×2 (12:35→14:07)
[2018-08-04] MEDS ORDERED: Sodium Chloride 0.9% 1,000 ML IV ONE ×2 (12:41→17:33)
[2018-08-04] MEDS ORDERED: Amikacin 1000 mg/4 ml Inj IVPB ONE (12:42)
[2018-08-04] MEDS ORDERED: Sodium Chloride 0.9% 500 ML IV ONE ×2 (12:42→12:48)
[2018-08-04] MEDS ORDERED: Sodium Chloride 0.9% 500 ML IV SCH (12:45)
--- NOTE | 2018-08-04 13:04 | RAD ---
Date of service: 08/04/2018 PROCEDURE: CHEST RADIOGRAPH, 1 VIEW HISTORY: [facility] COMPARISON: 06/06/2018 FINDINGS: LUNGS: Clear. PLEURA: No pneumothorax or pleural fluid seen. CARDIOVASCULAR: No aortic atherosclerotic calcification present. Normal. OSSEOUS STRUCTURES: No significant abnormalities. VISUALIZED UPPER ABDOMEN: Normal. OTHER FINDINGS: None. IMPRESSION: No active disease.
[2018-08-04] MEDS ORDERED: Vancomycin 1 GM 1 GM/250 ML BAG IVPB ONE (13:19)
[2018-08-04] MEDS ORDERED: AMIKACIN SULFATE IVPB ONE (13:30)
[2018-08-04] MEDS ORDERED: SODIUM CHLORIDE 0.9% IVPB ONE (13:30)
[2018-08-04] MEDS: Piperacillin/Tazobact 2.25 GM in Sodium Chloride 100 ML IVPB SCH ×2 (15:30→21:30)
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
[2018-08-04 17:01] LABS: CK-MB 5.79 ng/mL (0.0-3.38); TROPONIN I 1.93 ng/mL (0.00-0.120)
[2018-08-04] MEDS ORDERED: Digoxin 500 mcg/2ml (0.5 mg/2ml) Inj IVP ONE (17:44)
[2018-08-04] MEDS ORDERED: Heparin25000 units/250ml 1/2NS 25,000 UNITS/250 ML BAG IV PRN (17:45)
[2018-08-04 17:59] VITALS: PULSE 126
[2018-08-04] MEDS: Albumin Human 25% (12.5 gm/50 ml) IV SCH ×2 (17:59→18:45)
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
--- NOTE | 2018-08-04 23:44 | HP ---
CHIEF COMPLAINT: Weakness, tachycardia since this morning. HISTORY OF PRESENT ILLNESS: This is a 48-year-old male well known to me with history of nephrolithiasis, pyelonephritis, pyelonephrosis, valvular heart disease, status post nephrectomy, bilateral. He has history of polysubstance abuse, anxiety, depression, opiate dependence, hepatitis C. As a result of nephrolithiasis, he has end-stage renal disease, on hemodialysis 3 times a week. He was discharged from detox unit at [facility] 5 days ago. According to the patient, over the last 3 days, he has been feeling weakness, dizziness, tiredness, anorexia, malaise and fatigue. He is weak. He is having chills, rigors, body aches. He had nausea, no vomiting. This morning, he went to dialysis unit and in the dialysis unit, he was found to be tachycardic, tachypneic with low blood pressure and he had 30 minutes of dialysis, an ambulance was called and then the patient was transferred to the emergency room. He was found to be in rapid AFib with weakness. Blood pressure was low. He was given IV fluids to resuscitate. The patient is sitting in the chair right now. He is anxious. He is depressed and he is weak. He is tired. He is drowsy. He is arousable. His responses are appropriate. He feels chills. He has headache, dizziness, body aches. There is no history of abdominal pain. He has generalized body pain, headache. He has back pain. He denies any tingling, numbness, paresthesias. He denies any history of polyuria, polydipsia, polyphagia. He denies any history of hematuria, pyuria. He denies any sneezing, itchy eyes, itchy nose. PAST MEDICAL HISTORY: End-stage renal disease, on hemodialysis with end-stage renal disease due to nephrolithiasis, status post bilateral nephrectomy, aortic valve insufficiency, on medical management, hypotension, anxiety, depression, hepatitis C, IVDA, pulmonary embolism. PAST SURGICAL HISTORY: Bilateral nephrectomy and AV fistula. SOCIAL HISTORY: He smokes, he drinks and he uses street drugs as well as prescription drugs. FAMILY HISTORY: No history of kidney problems, cataracts or deafness in the family. CURRENT MEDICATIONS AT HOME: He is on Renvela, Remeron, Procrit, PhosLo, Xanax, Protonix, trazodone, and Flomax. PHYSICAL EXAMINATION: GENERAL: A middle-aged man in distress, weak, tired, tachycardic. VITAL SIGNS: Blood pressure 100/62, pulse 121, respiratory rate 18, temperature 99. SKIN: The patient has tattoos all over. No bruises. No purpura. No petechiae. No ecchymosis. HEENT: Atraumatic, normocephalic. Positive pallor. Negative jaundice. Extraocular movements are intact. NECK: Supple. Flat neck vein. No JVD. No lymph nodes. No thyromegaly. No carotid bruits. CHEST WALL: Bilateral symmetrical expansion. No tenderness. No deformity. LUNGS: Bilaterally clear. No rales. No rhonchi. CARDIOVASCULAR SYSTEM: S1, S2. Regular. No heaves noted. ABDOMEN: Soft, nontender. Bowel sounds are positive. The patient has bilateral scar of old nephrectomy. RECTAL: Negative. GENITAL: Negative. EXTREMITIES: No clubbing, cyanosis, edema. CENTRAL NERVOUS SYSTEM: The patient is awake. He is somewhat drowsy, withdrawing. Power is 5/5 x4. Plantars are downgoing. ASSESSMENT: 1. Rapid atrial fibrillation. Atrial fibrillation could be due to metabolic causes versus atrioventricular conduction problems. 2. Septicemia with shock. The patient's blood pressure is low, he received IV fluids. The source of septicemia is unclear. It is unlikely to be urinary in origin. No flu. Chest x-ray is negative. CT abdomen and pelvis is negative. gram positive methicillin-sensitive versus methicillin-resistant Staphylococcus aureus. 3. End-stage renal disease, on hemodialysis. 4. Anemia. 5. Polysubstance abuse. PLAN: Admit to ICU. Follow the patient. Mikel Marc MD
[2018-08-05 00:24] LABS: CK-MB 7.2 ng/mL (0.0-3.38); TROPONIN I 2.02 ng/mL (0.00-0.120)
[2018-08-05] MEDS: Oxycodone/Acetaminophen 5/325 mg Tab PO PRN (02:46)
[2018-08-05] MEDS: Piperacillin/Tazobact 2.25 GM in Sodium Chloride 100 ML IVPB SCH ×3 (05:15→20:31)
[2018-08-05 05:54] LABS: BASO % 0.3 % (0.0-2.0); EOS # 0.1 K/uL (0.0-0.7); EOS % 1.1 % (0.0-4.0); LYMPH # 1.4 K/uL (1.0-4.3); MEAN CELL VOLUME 95.3 fL (80.0-94.0); MEAN CORPUSCULAR HEMOGLOBIN 30.4 pg (27.0-31.0); MEAN CORPUSCULAR HGB CONC 31.9 g/dL (33.0-37.0); MEAN PLATELET VOLUME 9.8 fL (7.2-11.7); MONO # 0.7 K/uL (0.0-0.8); MONO % 7.2 % (0.0-10.0); NEUT # 7.1 K/uL (1.8-7.0); NEUT % 76.4 % (50.0-75.0); NRBC % 0.1 % (0.0-2.0); RBC 2.98 Mil/uL (4.40-5.90); RED CELL DISTRIBUTION WIDTH 18.9 % (11.5-14.5); WHITE BLOOD COUNT 9.3 K/uL (4.8-10.8)
[2018-08-05 06:14] LABS: ALB/GLOB RATIO 0.9 (1.0-2.1); ALBUMIN 3.1 g/dL (3.5-5.0); CALCIUM 8.8 mg/dl (8.6-10.4)
--- NOTE | 2018-08-05 10:01 | CP.PCM.PN ---
Subjective - Date & Time of Evaluation Date of Evaluation: 08/05/18 Time of Evaluation: 10:02 - Subjective Subjective: fever resolved, BCx (+)GPC, patient's HR improved, awaiting HD as per renal today Objective - Vital Signs/Intake and Output Vital Signs (last 24 hours): Temp Pulse Resp BP Pulse Ox 98.2 F 123 H 18 85/42 L 100 08/05/18 04:00 08/05/18 08:30 08/05/18 08:30 08/05/18 08:05 08/05/18 00:30 Intake and Output: 08/05/18 08/05/18 06:59 18:59 Intake Total 1090 0 Output Total 0 0 Balance 1090 0 - Medications Medications: Current Medications Aspirin (Aspirin Chewable) 81 mg PO DAILY [facility] Last Admin: 08/04/18 17:43 Dose: 81 mg Piperacillin Sod/Tazobactam (Sod 2.25 gm/ Sodium Chloride) 100 mls @ 200 mls/hr IVPB Q8H [facility]; Protocol Last Admin: 08/05/18 05:15 Dose: 200 mls/hr Heparin Sodium/Sodium Chloride (Heparin 95898 Units/250ml 1/2 Normal Saline) 25,000 units in 250 mls @ 0 mls/hr IV .Q0M PRN; Protocol PRN Reason: PROTOCOL Midodrine (Proamatine) 5 mg PO TID [facility] Oxycodone/Acetaminophen (Percocet 5/325 Mg Tab) 2 tab PO Q6H PRN PRN Reason: Pain, moderate (4-7) Stop: 08/07/18 16:09 Last Admin: 08/05/18 02:46 Dose: 2 tab Rosuvastatin Calcium (Crestor) [address] [facility] Last Admin: 08/04/18 23:35 Dose: 5 mg - Labs Labs: 08/05/18 05:48 08/05/18 05:48 PT 17.2 SECONDS (9.7-12.2) H 08/04/18 09:46 INR 1.6 08/04/18 09:46 APTT 35 SECONDS (21-34) H 08/04/18 09:46 - Head Exam Head Exam: ATRAUMATIC, NORMAL INSPECTION - Eye Exam Eye Exam: PERRL Pupil Exam: NORMAL ACCOMODATION - ENT Exam ENT Exam: Mucous Membranes Moist - Respiratory Exam Respiratory Exam: Clear to Ausculation Bilateral, NORMAL BREATHING PATTERN. absent: Rales, Rhonchi, Wheezes, Respiratory Distress, Stridor - Cardiovascular Exam Cardiovascular Exam: Irregular Rhythm, +S1, +S2, +S4, Murmur - GI/Abdominal Exam GI & Abdominal Exam: Soft, Normal Bowel Sounds. absent: Guarding, Tenderness, Hernia, Hyperactive Bowel Sounds, Mass - Extremities Exam Extremities Exam: Normal Inspection, Pedal Edema - Neurological Exam Neurological Exam: Alert, Awake, Oriented x3 - Skin Skin Exam: Normal Color Assessment and Plan - Assessment and Plan (Free Text) Assessment: 48 y/o male with PMHx of ESRD, right kidney mass s/p resection, severe systolic heart failure dx with GPC bacteremia -gram positive bacterremia: sensitivity and ID not available, continue vanco per level, amikacin, echo and ID consult for IE, lactic normalized -Severe chronic systolic heart failure: continue medications as per cardiology, SVT resolving, MAP remains >60, patient remains asymptoamtic despite false low reading on NIBP -A-fib: patient refused anticoagualtion with IV heparin, risks, benefits and alternatives explained. patient noted he had h/o bleeding and AC with coumadin stopped ESRD on HD: HD as per renal schedule -h/o ?anxiety/polysubstance abuse: patient admits to actively shooting heroin, obtain utox, serum/urine -continue dvt/pud ppx -prognosis very poor as patient has bacteremia with non compliance with IV DU and non-compliance with IV heparin -Risks of bleeding and stroke explained to patients and resultant benefits of AC also explaiend. Patient rebalized understanding and refused IV heparin. prognosis very poor
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
[2018-08-05] MEDS ORDERED: Albumin Human 25% (12.5 gm/50 ml) IV ONE ×2 (14:21→14:22)
--- NOTE | 2018-08-05 22:52 | CP.PCM.PN ---
Subjective - Date & Time of Evaluation Date of Evaluation: 08/05/18 Time of Evaluation: 07:20 - Subjective Subjective: dictated Objective - Vital Signs/Intake and Output Vital Signs (last 24 hours): Temp Pulse Resp BP Pulse Ox 98.9 F 101 H 20 100/34 L 98 08/05/18 20:00 08/05/18 20:31 08/05/18 20:31 08/05/18 20:31 08/05/18 20:00 Intake and Output: 08/05/18 08/06/18 18:59 06:59 Intake Total 2380 100 Output Total 2000 Balance 380 100 - Medications Medications: Current Medications Aspirin (Aspirin Chewable) 81 mg PO DAILY [facility] Last Admin: 08/05/18 18:04 Dose: 81 mg Piperacillin Sod/Tazobactam (Sod 2.25 gm/ Sodium Chloride) 100 mls @ 200 mls/hr IVPB Q8H [facility]; Protocol Last Admin: 08/05/18 20:31 Dose: 200 mls/hr Heparin Sodium/Sodium Chloride (Heparin 33351 Units/250ml 1/2 Normal Saline) 25,000 units in 250 mls @ 0 mls/hr IV .Q0M PRN; Protocol PRN Reason: PROTOCOL Midodrine (Proamatine) 5 mg PO TID [facility] Last Admin: 08/05/18 18:05 Dose: 5 mg Oxycodone/Acetaminophen (Percocet 5/325 Mg Tab) 2 tab PO Q6H PRN PRN Reason: Pain, moderate (4-7) Stop: 08/07/18 16:09 Last Admin: 08/05/18 02:46 Dose: 2 tab Prochlorperazine (Compazine Tab) 5 mg PO TID [facility] Last Admin: 08/05/18 18:04 Dose: 5 mg Rosuvastatin Calcium (Crestor) 5 mg PO [facility] Last Admin: 08/05/18 22:00 Dose: 5 mg - Labs Labs: 08/05/18 05:48 08/05/18 05:48 PT 17.2 SECONDS (9.7-12.2) H 08/04/18 09:46 INR 1.6 08/04/18 09:46 APTT 35 SECONDS (21-34) H 08/04/18 09:46
--- NOTE | 2018-08-06 02:34 | CON ---
DATE: 08/05/2018 REASON FOR CONSULTATION: Atrial fibrillation. HISTORY OF PRESENT ILLNESS: The patient is a 48-year-old male who has end-stage renal disease, on hemodialysis, related to chronic bilateral nephrolithiasis and underwent bilateral nephrectomy, the most recent one was about two months ago at [facility], was done for the right kidney. The patient is also known to have aortic valve endocarditis with residual significant aortic insufficiency and was evaluated for aortic valve replacement at [facility]. He had nonobstructive coronary artery disease on the recent cardiac catheterization performed by Dr. Schultz in 02/2018. The patient presented yesterday because of hiccups and right-sided chest discomfort and was found to be in rapid atrial fibrillation. The patient has admitted, according to the ER team, to using heroin the night before admission. PAST MEDICAL HISTORY: End-stage renal disease, on hemodialysis, bilateral nephrectomy; aortic valve endocarditis with residual significant aortic insufficiency. The patient also did have paroxysms of atrial fibrillation in the past. REVIEW OF SYSTEMS: The patient is experiencing hiccups and worsening of his leg swelling. MEDICATIONS: Aspirin 81 mg once a day, Crestor 5 mg once a day. The patient refused intravenous heparin infusion and also refused any other sort of anticoagulation. The patient is on Zosyn 2.25 g every 8 hours, ProAmatine 5 mg t.i.d. and vancomycin 1 g given as a single dose. PHYSICAL EXAMINATION: GENERAL: The patient is a middle-aged male who does not appear to be in acute distress. VITAL SIGNS: Blood pressure 77/32, heart rate 113, temperature 98.2, respirations 18. HEENT: Pale conjunctivae. CHEST: Absent breath sounds over the bases. HEART: Sounds irregular. Grade III/ murmur over the left sternal border. ABDOMEN: Soft. EXTREMITIES: 3+ pitting edema. LABORATORY DATA: Today's SMA-7: Sodium 132, potassium 4.1, chloride 91, CO2 of 30, glucose 113, BUN 53, creatinine 6.2. Troponin 1.93 and 2.02. Hemoglobin and hematocrit are 9 and 28.4, white count 9.3, platelet count 90,000. EKG revealed atrial fibrillation at a rate of 149, nonspecific ST-T wave changes. The most recent echo was from 04/2018, which revealed cardiomegaly and low-normal ejection fraction, thickened aortic valve, a mobile mass noted in the left cusp consistent with vegetation, [id number]-ov-mevynz aortic insufficiency, moderate eccentric mitral valve regurgitation and severe pulmonary hypertension with significantly reduced right ventricular systolic function. The official cardiac catheterization report in 02/2018: Nonobstructive coronary artery disease, normal ejection fraction, mildly elevated diastolic pressures. ASSESSMENT: 1. Rapid atrial fibrillation. 2. Aortic valve endocarditis with residual [id number] aortic insufficiency. 3. Significant mitral insufficiency. 4. Right-sided heart failure and severe pulmonary hypertension. 5. History of hepatitis C. 6. History of opiate abuse. RECOMMENDATIONS: The patient is currently undergoing hemodialysis. Continue aspirin 81 mg once a day, Crestor 5 mg once a day, Zosyn 2.25 g every 8 hours and ProAmatine 5 mg t.i.d. The patient was scheduled yesterday for chest CT angio to rule out pulmonary embolism. We will obtain also bedside venous Doppler of the lower extremities. The patient still insists on the fact that he refuses any sort of anticoagulation. The case was discussed with loom blower. If the patient remains hypotensive, low-dose Levophed will be considered. In the meantime, I will request Compazine for the patient's ongoing hiccup. Mc Miner MD
[2018-08-06] MEDS: Piperacillin/Tazobact 2.25 GM in Sodium Chloride 100 ML IVPB SCH ×3 (04:45→20:17)
--- NOTE | 2018-08-06 04:46 | PN ---
DATE: 08/05/2018 SUBJECTIVE: The patient is feeling better, afebrile, decreased heart rate. No nausea or vomiting. PHYSICAL EXAMINATION: VITAL SIGNS: Blood pressure 102/72; pulse 97, irregular; respiratory rate 18; and temperature 99. LUNGS: Clear. CARDIOVASCULAR SYSTEM: S1 and S2. Regular. ABDOMEN: Soft. ASSESSMENT: 1. Gram positive septicemia, most likely it is line related. 2. Chronic kidney disease, on hemodialysis. 3. Atrial fibrillation. PLAN: Medical management. ICU. IV antibiotics. Mikel Marc MD
[2018-08-06 05:35] LABS: BASO % 0.3 % (0.0-2.0); EOS # 0.1 K/uL (0.0-0.7); EOS % 1.2 % (0.0-4.0); HEMOGLOBIN 8.8 g/dL (12.0-18.0); LYMPH # 1.4 K/uL (1.0-4.3); LYMPH % 15.8 % (20.0-40.0); MEAN CELL VOLUME 94.8 fL (80.0-94.0); MEAN CORPUSCULAR HGB CONC 32.7 g/dL (33.0-37.0); MEAN PLATELET VOLUME 9.8 fL (7.2-11.7); MONO # 0.5 K/uL (0.0-0.8); MONO % 5.6 % (0.0-10.0); NEUT # 6.7 K/uL (1.8-7.0); NEUT % 77.1 % (50.0-75.0); RBC 2.84 Mil/uL (4.40-5.90); RED CELL DISTRIBUTION WIDTH 18.5 % (11.5-14.5); WHITE BLOOD COUNT 8.6 K/uL (4.8-10.8)
[2018-08-06 06:08] LABS: ALBUMIN 3.1 g/dL (3.5-5.0); CALCIUM 8.7 mg/dl (8.6-10.4)
--- NOTE | 2018-08-06 08:56 | CP.CCUPN ---
CCU Subjective - Physician Review Subjective (Free Text): Critical care progress note for Dr. Kincaid. Patient seen and examined at bedside. No acute events overnight. Patient refusing heparin & anticoagulants. Patient had dialysis on Monday and scheduled for today. Patient states his legs are swollen. No headaches, vision changes, chest pain, SOB, nausea, vomiting, fevers, chills, abdominal pain. CCU Objective - Vital Signs / Intake & Output Vital Signs (Last 4 hours): Vital Signs Pulse Resp BP Pulse Ox 08/06/18 06:00 101 H 22 08/06/18 05:16 102 H 17 98/32 L 100 Intake and Output (Last 8hrs): Intake & Output 08/05/18 08/06/18 08/06/18 22:59 06:59 14:59 Intake Total 1640 500 Output Total 2000 Balance -360 500 Weight 215 lb 6.266 oz Intake: Intake, IV Amount 100 Right Forearm 100 Oral 1540 500 Output: Other 2000 Other: # Bowel Movements 0 - Physical Exam Head: Positive for: Atraumatic, Normocephalic Pupils: Positive for: PERRL Extroacular Muscles: Positive for: EOMI Mouth: Positive for: Moist Mucous Membranes Neck: Positive for: Normal Range of Motion Respiratory/Chest: Positive for: Clear to Auscultation, Good Air Exchange. Negative for: Accessory Muscle Use Cardiovascular: Positive for: Regular Rate and Rhythm, Normal S1, S2 Abdomen: Positive for: Distention, Normal Bowel Sounds. Negative for: Tenderness Upper Extremity: Positive for: Normal Inspection, Other. Negative for: Edema Lower Extremity: Positive for: Edema, NORMAL PULSES. Negative for: CALF TENDERNESS Neurological: Positive for: GCS=15, CN II-XII Intact Skin: Positive for: Warm, Dry, Rashes Psychiatric: Positive for: Oriented x 3 - Medications Active Medications: Active Medications Generic Name Dose Route Start Last Admin Trade Name Freq PRN Reason Stop Dose Admin Aspirin 81 mg 08/04/18 15:45 08/05/18 18:04 Aspirin Chewable PO 81 mg DAILY [facility] Administration Piperacillin Sod/Tazobactam 100 mls @ 200 mls/hr 08/04/18 12:45 08/06/18 04:45 Sod 2.25 gm/ Sodium Chloride IVPB 200 mls/hr Q8H [facility] Administration Protocol Heparin Sodium/Sodium Chloride 25,000 units in 250 mls @ 0 mls/hr 08/04/18 17:45 Heparin 19840 Units/250ml 1/2 Normal Saline IV .Q0M PRN PROTOCOL Protocol Per Protocol Midodrine 5 mg 08/05/18 08:20 08/05/18 18:05 Proamatine PO 5 mg TID LEE Administration Oxycodone/Acetaminophen 2 tab 08/04/18 16:08 08/05/18 02:46 Percocet 5/325 Mg Tab PO 08/07/18 16:09 2 tab Q6H PRN Administration Pain, moderate (4-7) Prochlorperazine 5 mg 08/05/18 18:00 08/05/18 18:04 Compazine Tab PO 5 mg TID [facility]EE Administration Rosuvastatin Calcium 5 mg 08/04/18 22:00 08/05/18 22:00 Crestor PO 5 mg HS LEE Administration - Patient Studies Lab Studies: Microbiology Studies 08/04/18 13:20 Blood Culture - Preliminary Blood Gram Positive Cocci Gram Stain - Final 08/04/18 12:50 Blood Culture - Preliminary Blood Gram Positive Cocci Gram Stain - Preliminary Lab Studies 08/06/18 08/06/18 08/06/18 Range/Units 05:26 05:26 05:26 WBC (4.8-10.8) K/uL RBC (4.40-5.90) Mil/uL Hgb (12.0-18.0) g/dL Hct (35.0-51.0) % MCV (80.0-94.0) fL MCH (27.0-31.0) pg MCHC (33.0-37.0) g/dL RDW (11.5-14.5) % Plt Count (130-400) K/uL MPV (7.2-11.7) fL Neut % (Auto) (50.0-75.0) % Lymph % (Auto) (20.0-40.0) % [place] % (Auto) (0.0-10.0) % Eos % (Auto) (0.0-4.0) % Baso % (Auto) (0.0-2.0) % Neut # (Auto) (1.8-7.0) K/uL Lymph # (Auto) (1.0-4.3) K/uL [place] # (Auto) (0.0-0.8) K/uL Eos # (Auto) (0.0-0.7) K/uL Baso # (Auto) (0.0-0.2) K/uL Sodium 132 (132-148) mmol/L Potassium 4.2 (3.6-5.2) mmol/L Chloride 94 L (98-107) mmol/L Carbon Dioxide 27 (22-30) mmol/L Anion Gap 16 (10-20) BUN 46 H (9-20) mg/dL Creatinine 5.4 H (0.8-1.5) mg/dL Est GFR ( Amer) 14 Est GFR (Non-Af Amer) 11 Random Glucose 95 (75-110) mg/dL Calcium 8.7 (8.6-10.4) mg/dl Phosphorus 3.4 (2.5-4.5) mg/dL Magnesium 1.8 (1.6-2.3) mg/dL Total Bilirubin 0.9 (0.2-1.3) mg/dL AST 25 (17-59) U/L ALT 22 (21-72) U/L Alkaline Phosphatase 194 H (38-126) U/L C-React Prot High Sens > 15.00 H (1.00-3.00) mg/L Total Protein 6.2 L (6.3-8.3) g/dL Albumin 3.1 L (3.5-5.0) g/dL Globulin 3.1 (2.2-3.9) gm/dL Albumin/Globulin Ratio 1.0 (1.0-2.1) Random Vancomycin 18.8 ug/mL 08/06/18 08/05/18 Range/Units 05:26 10:02 WBC 8.6 (4.8-10.8) K/uL RBC 2.84 L (4.40-5.90) Mil/uL Hgb 8.8 L (12.0-18.0) g/dL Hct 27.0 L (35.0-51.0) % MCV 94.8 H (80.0-94.0) fL MCH 31.0 (27.0-31.0) pg MCHC 32.7 L (33.0-37.0) g/dL RDW 18.5 H (11.5-14.5) % Plt Count 100 L (130-400) K/uL MPV 9.8 (7.2-11.7) fL Neut % (Auto) 77.1 H (50.0-75.0) % Lymph % (Auto) 15.8 L (20.0-40.0) % [place] % (Auto) 5.6 (0.0-10.0) % Eos % (Auto) 1.2 (0.0-4.0) % Baso % (Auto) 0.3 (0.0-2.0) % Neut # (Auto) 6.7 (1.8-7.0) K/uL Lymph # (Auto) 1.4 (1.0-4.3) K/uL [place] # (Auto) 0.5 (0.0-0.8) K/uL Eos # (Auto) 0.1 (0.0-0.7) K/uL Baso # (Auto) 0.0 (0.0-0.2) K/uL Sodium (132-148) mmol/L Potassium (3.6-5.2) mmol/L Chloride (98-107) mmol/L Carbon Dioxide (22-30) mmol/L Anion Gap (10-20) BUN (9-20) mg/dL Creatinine (0.8-1.5) mg/dL Est GFR ( Amer) Est GFR (Non-Af Amer) Random Glucose (75-110) mg/dL Calcium (8.6-10.4) mg/dl Phosphorus (2.5-4.5) mg/dL Magnesium (1.6-2.3) mg/dL Total Bilirubin (0.2-1.3) mg/dL AST (17-59) U/L ALT (21-72) U/L Alkaline Phosphatase (38-126) U/L C-React Prot High Sens (1.00-3.00) mg/L Total Protein (6.3-8.3) g/dL Albumin (3.5-5.0) g/dL Globulin (2.2-3.9) gm/dL Albumin/Globulin Ratio (1.0-2.1) Random Vancomycin 10.5 ug/mL Laboratory Results - last 24 hr 08/05/18 08/06/18 08/06/18 10:02 05:26 05:26 WBC 8.6 RBC 2.84 L Hgb 8.8 L Hct 27.0 L MCV 94.8 H MCH 31.0 MCHC 32.7 L RDW 18.5 H Plt Count 100 L MPV 9.8 Neut % (Auto) 77.1 H Lymph % (Auto) 15.8 L Lagrange % (Auto) 5.6 Eos % (Auto) 1.2 Baso % (Auto) 0.3 Neut # (Auto) 6.7 Lymph # (Auto) 1.4 [place]range # (Auto) 0.5 Eos # (Auto) 0.1 Baso # (Auto) 0.0 Sodium Potassium Chloride Carbon Dioxide Anion Gap BUN Creatinine Est GFR ( Amer) Est GFR (Non-Af Amer) Random Glucose Calcium Phosphorus Magnesium Total Bilirubin AST ALT Alkaline Phosphatase C-React Prot High Sens > 15.00 H Total Protein Albumin Globulin Albumin/Globulin Ratio Random Vancomycin 10.5 08/06/18 08/06/18 05:26 05:26 WBC RBC Hgb Hct MCV MCH MCHC RDW Plt Count MPV Neut % (Auto) Lymph % (Auto) Lagrange % (Auto) Eos % (Auto) Baso % (Auto) Neut # (Auto) Lymph # (Auto) Lagrange # (Auto) Eos # (Auto) Baso # (Auto) Sodium 132 Potassium 4.2 Chloride 94 L Carbon Dioxide 27 Anion Gap 16 BUN 46 H Creatinine 5.4 H Est GFR ( Amer) 14 Est GFR (Non-Af Amer) 11 Random Glucose 95 Calcium 8.7 Phosphorus 3.4 Magnesium 1.8 Total Bilirubin 0.9 AST 25 ALT 22 Alkaline Phosphatase 194 H C-React Prot High Sens Total Protein 6.2 L Albumin 3.1 L Globulin 3.1 Albumin/Globulin Ratio 1.0 Random Vancomycin 18.8 Review of Systems - EENT Eyes: UNREMARKABLE - Cardiovascular Cardiovascular: UNREMARKABLE. absent: Chest Pain, Chest Pain at Rest - Respiratory Respiratory: UNREMARKABLE. absent: Dyspnea, Dyspnea on Exertion - Gastrointestinal Gastrointestinal: Bloating, UNREMARKABLE. absent: Abdominal Pain, Constipation - Genitourinary Genitourinary: UNREMARKABLE. absent: Hematuria, Pyuria - Musculoskeletal Musculoskeletal: UNREMARKABLE Additional comments: AVF left upper arm - Neurological Neurological: UNREMARKABLE. absent: Abnormal Hearing, Disequilibrium, Headaches - Psychiatric Psychiatric: UNREMARKABLE. absent: Behavioral Changes, Confusion - Endocrine Endocrine: UNREMARKABLE - Hematologic/Lymphatic Hematologic: absent: Easy Bleeding, Easy Bruising Critical Care Progress Note - Extremities/Vascular Does the Patient have a Central Venous Catheter?: No Does the Patient need a Central Venous Catheter?: No Does the Patient have a King Catheter?: No Does the Patient need a King Catheter?: No - Prophylaxis GI Prophylaxis GI: Pepsid - Prophylaxis DVT Prophylaxis DVT: Not Indicated - Nutrition Nutrition: Nutrition Category Date Time Status Renal Diet [DIET] Diets 08/04/18 Dinner Active Assessment/Plan - Assessment and Plan (Free Text) Assessment: 48M w/ hx of ETOH/ polysubstance abuse, ESRD, endocarditis, admitted for SOB & tachycardia & fevers of 102. Scheduled for echo to r/o endocardititis due to elevated WBC and fevers. Post dialysis today, patient states he feels fine, vitals wnl. Patient stable downgrade to medical floor. Plan: Neuro - A&Ox3 Cardio - Vitals table - elevated trops of 2.02 - EKG: afib w/ RVR - pt refusing heparin drip - c/w aspirin 81 mg daily - Repeat echo - r/o endocarditis Pulm - vitals stable - continue to monitor GI - renal diet Renal - BUN/Cr 46/5.4 - Dialysis MWF - continue to monitor ID - temp on admission of 102 - blood cultures for gram + - F/u echo r/o endocarditis - Per ID - Vancomycin 1gm MWF w/ dialysis - Zosyn 2.25 gm Q8H - F/u vanc & amikicin levels PPX - DVT: refusing heparin - GI: pepcid 20 mg daily
[2018-08-06] MEDS ORDERED: Albumin Human 25% (12.5 gm/50 ml) IV ONE ×2 (10:47→10:49)
--- NOTE | 2018-08-06 12:10 | CP.PCM.PN ---
Subjective - Date & Time of Evaluation Date of Evaluation: 08/06/18 Time of Evaluation: 12:07 - Subjective Subjective: on HD 3 kg uf getting SPA for hypotension no fevers appetite poor no rash no headache abdominal pain no anxiety decreased urine production no arthralgias Objective - Vital Signs/Intake and Output Vital Signs (last 24 hours): Temp Pulse Resp BP Pulse Ox 978 F H 80 20 83/31 L 99 08/06/18 11:00 08/06/18 11:18 08/06/18 11:18 08/06/18 11:18 08/06/18 11:18 Intake and Output: 08/06/18 08/06/18 06:59 18:59 Intake Total 1100 0 Balance 1100 0 - Medications Medications: Current Medications Aspirin (Aspirin Chewable) 81 mg PO DAILY [facility] Last Admin: 08/05/18 18:04 Dose: 81 mg Piperacillin Sod/Tazobactam (Sod 2.25 gm/ Sodium Chloride) 100 mls @ 200 mls/hr IVPB Q8H [facility]; Protocol Last Admin: 08/06/18 04:45 Dose: 200 mls/hr Heparin Sodium/Sodium Chloride (Heparin 05412 Units/250ml 1/2 Normal Saline) 25,000 units in 250 mls @ 0 mls/hr IV .Q0M PRN; Protocol PRN Reason: PROTOCOL Vancomycin HCl 1 gm/ Sodium (Chloride) 250 mls @ 167 mls/hr IVPB MWF [facility]; Protocol Stop: 08/20/18 10:30 Midodrine (Proamatine) 5 mg PO TID [facility] Last Admin: 08/06/18 10:00 Dose: Not Given Oxycodone/Acetaminophen (Percocet 5/325 Mg Tab) 2 tab PO Q6H PRN PRN Reason: Pain, moderate (4-7) Stop: 08/07/18 16:09 Last Admin: 08/05/18 02:46 Dose: 2 tab Prochlorperazine (Compazine Tab) 5 mg PO TID [facility] Last Admin: 08/05/18 18:04 Dose: 5 mg Rosuvastatin Calcium (Crestor) 5 mg PO HS [facility] Last Admin: 08/05/18 22:00 Dose: 5 mg - Labs Labs: 08/06/18 05:26 08/06/18 05:26 PT 17.2 SECONDS (9.7-12.2) H 08/04/18 09:46 INR 1.6 08/04/18 09:46 APTT 35 SECONDS (21-34) H 08/04/18 09:46 - Constitutional Appears: No Acute Distress, Chronically Ill - Head Exam Head Exam: ATRAUMATIC, NORMAL INSPECTION - Eye Exam Eye Exam: EOMI - ENT Exam ENT Exam: Mucous Membranes Moist - Neck Exam Neck Exam: Full ROM. absent: Lymphadenopathy - Respiratory Exam Respiratory Exam: Decreased Breath Sounds. absent: Accessory Muscle Use - Cardiovascular Exam Cardiovascular Exam: REGULAR RHYTHM. absent: Rubs - GI/Abdominal Exam GI & Abdominal Exam: Distended, Tenderness - Extremities Exam Extremities Exam: Pedal Edema - Neurological Exam Neurological Exam: Alert, Awake Assessment and Plan - Assessment and Plan (Free Text) Assessment: HD support albumin support f/u cultures empiric AB Plan: maint HD, chronic fluid overload albumin for HD BP support
--- NOTE | 2018-08-06 17:54 | PN ---
DATE: 08/06/2018 SUBJECTIVE: The patient's improved. He is currently in atrial fibrillation with controlled ventricular response. PHYSICAL EXAMINATION: VITAL SIGNS: Blood pressure 92/35, heart rate 89, temperature 97.8, respiration 20. HEENT: Normocephalic. CHEST: Absent breath sounds at bases. HEART: S1 and S2 regular. ABDOMEN: Soft. EXTREMITIES: 2+ pitting edema. LABORATORY DATA: Today's hemoglobin and hematocrit are 8.8 and 27. White count 8.6, platelet count 100,000. Today's BUN and creatinine are 46 and 5.4 respectively. ASSESSMENT: 1. Persistent atrial fibrillation. 2. Right-sided failure and severe pulmonary hypertension. 3. Borderline troponin elevation. 4. 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 RECOMMENDATIONS: Continue aspirin 81 mg once a day and Crestor at 5 mg once a day. Discontinue Compazine. Continue IV Zosyn at 2.25 g every 8 hours and IV vancomycin 1 g Monday, Monday and Monday. CT angio of the chest was canceled by the creping machine operator helper. I would request venous Doppler of the lower extremity at the bedside and the patient is scheduled to have 2-D echo at the bedside today. Mc Miner MD
[2018-08-06] MEDS: Oxycodone/Acetaminophen 5/325 mg Tab PO PRN (18:23)
--- NOTE | 2018-08-06 19:02 | CP.PCM.PN ---
Subjective - Date & Time of Evaluation Date of Evaluation: 08/06/18 Time of Evaluation: 19:01 - Subjective Subjective: CHIEF COMPLAINTS TODAY : afebrile,S/P HD TODAY tachy vs as noted. denies CHEST PAIN/OR SOB ROS. HEENT : N. Resp : No SOB wheezing, cough Cardio : No CP, PND orthopnea GI : No abd. Pain, n/v INFORMATION SECURITY MANAGER : No headache , focal deficit. Musculoskel : N Ext. : Pedal pulses intact, no edema or calf pain Derm : N Psych : N. PE. Pt. is alert awake in no distress. V.S As noted in the chart Head ,ear nose,throat and eyes : Normal. Neck : Supple with normal carotids. Lungs: Clear air entry. Heart : S1 & S2 IRREGULAR +VE murmur. S4 + Abd : Soft non tender with normal bowel sounds. Neuro : Moves all ext. with no localized deficit. Ext : +VE 2+ edema with intact pulses. Neg. calf tenderness Derm : No rashes or decubitus ulcer. Radiology/Labs . ESR 28 WBC 8.6 VANCO RANDOM LEVEL 18.8 BLOOD CULTURE 08/04/18 +VE GP COCCI IN CHAINS 2:2 SETS REPEAT BLOOD CULTURE 2:2 SETS 08/05/18 -VE X 24HRS. Objective - Vital Signs/Intake and Output Vital Signs (last 24 hours): Temp Pulse Resp BP Pulse Ox 98.4 F 105 H 25 H 99/36 L 98 08/06/18 16:00 08/06/18 18:05 08/06/18 18:05 08/06/18 13:39 08/06/18 16:00 Intake and Output: 08/06/18 08/07/18 18:59 06:59 Intake Total 1600 Output Total 2500 Balance -900 - Medications Medications: Current Medications Aspirin (Aspirin Chewable) 81 mg PO DAILY [facility] Last Admin: 08/06/18 14:10 Dose: 81 mg Famotidine (Pepcid) 20 mg PO DAILY [facility] Piperacillin Sod/Tazobactam (Sod 2.25 gm/ Sodium Chloride) 100 mls @ 200 mls/hr IVPB Q8H [facility]; Protocol Last Admin: 08/06/18 12:45 Dose: Not Given Heparin Sodium/Sodium Chloride (Heparin 02796 Units/250ml 1/2 Normal Saline) 25,000 units in 250 mls @ 0 mls/hr IV .Q0M PRN; Protocol PRN Reason: PROTOCOL Vancomycin HCl 1 gm/ Sodium (Chloride) 250 mls @ 167 mls/hr IVPB [facility] [place] [facility]; Protocol Stop: 08/20/18 10:30 Midodrine (Proamatine) 5 mg PO TID [facility] Last Admin: 08/06/18 18:24 Dose: 5 mg Oxycodone/Acetaminophen (Percocet 5/325 Mg Tab) 2 tab PO Q6H PRN PRN Reason: Pain, moderate (4-7) Stop: 08/07/18 16:09 Last Admin: 08/06/18 18:23 Dose: 2 tab Prochlorperazine (Compazine Tab) 5 mg PO TID [facility] Last Admin: 08/06/18 10:00 Dose: Not Given Rosuvastatin Calcium (Crestor) 5 mg PO [facility] Last Admin: 08/05/18 22:00 Dose: 5 mg - Labs Labs: 08/06/18 05:26 08/06/18 05:26 PT 17.2 SECONDS (9.7-12.2) H 08/04/18 09:46 INR 1.6 08/04/18 09:46 APTT 35 SECONDS (21-34) H 08/04/18 09:46 Assessment and Plan (1) Septic shock Status: Acute (2) Gram-positive bacteremia Status: Acute (3) Aortic insufficiency Status: Acute (4) Aortic valve endocarditis Status: Acute (5) Atrial fibrillation with rapid ventricular response Status: Acute (6) ESRD on dialysis Status: Acute (7) Drug abuse Status: Acute - Assessment and Plan (Free Text) Plan: CONTINUE IV ZOSYN 2.25 G EVERY 8 HOURLY 08/04/18. VANCOMYCIN 1 G iv PIGGYBACK POST HD MWF X 6 DOSES 08/06/18- HOLD VANCOMYCIN TODAY. FOLLOW-UP vANCO TROUGH LEVELS PRIOR TO 4TH DOSE ON 08/13/18 kEEP THE LEVELS BETWEEN 10 AND 20 MG PER Ml. fOLLOW-UP CULTURES TO ADJUST ANTIBIOTICS. F/U 2D ECHO /MANDIE R/O AORTIC VALVE ABSCESS FOR RECURRENT BACTEREMIA. PATIENT ALSO HAS AORTIC VALVE INSUFFICIENCY. POOR CANDIDATE FOR SURGERY IN VIEW OF ACTIVE DRUG USE. WILL DISCUSS WITH CARDIOLOGY.
[2018-08-07] MEDS: Oxycodone/Acetaminophen 5/325 mg Tab PO PRN (00:14)
--- NOTE | 2018-08-07 03:02 | CP.PCM.PN ---
Subjective - Date & Time of Evaluation Date of Evaluation: 08/06/18 Time of Evaluation: 09:00 - Subjective Subjective: dictated Objective - Vital Signs/Intake and Output Vital Signs (last 24 hours): Temp Pulse Resp BP Pulse Ox 99.1 F 109 H 20 103/36 L 100 08/06/18 20:00 08/07/18 02:00 08/07/18 02:00 08/07/18 00:11 08/07/18 00:24 Intake and Output: 08/06/18 08/07/18 18:59 06:59 Intake Total 1600 200 Output Total 2500 Balance -900 200 - Medications Medications: Current Medications Aspirin (Aspirin Chewable) 81 mg PO DAILY [facility] Last Admin: 08/06/18 14:10 Dose: 81 mg Famotidine (Pepcid) 20 mg PO DAILY [facility] Piperacillin Sod/Tazobactam (Sod 2.25 gm/ Sodium Chloride) 100 mls @ 200 mls/hr IVPB Q8H [facility]; Protocol Last Admin: 08/06/18 20:17 Dose: 200 mls/hr Heparin Sodium/Sodium Chloride (Heparin 33964 Units/250ml 1/2 Normal Saline) 25,000 units in 250 mls @ 0 mls/hr IV .Q0M PRN; Protocol PRN Reason: PROTOCOL Vancomycin HCl 1 gm/ Sodium (Chloride) 250 mls @ 167 mls/hr IVPB MWF [facility]; Protocol Stop: 08/20/18 10:30 Midodrine (Proamatine) 5 mg PO TID [facility] Last Admin: 08/06/18 18:24 Dose: 5 mg Oxycodone/Acetaminophen (Percocet 5/325 Mg Tab) 2 tab PO Q6H PRN PRN Reason: Pain, moderate (4-7) Stop: 08/07/18 16:09 Last Admin: 08/07/18 00:14 Dose: 2 tab Prochlorperazine (Compazine Tab) 5 mg PO TID [facility] Last Admin: 08/06/18 20:17 Dose: 5 mg Rosuvastatin Calcium (Crestor) 5 mg PO HS [facility] Last Admin: 08/06/18 21:13 Dose: Not Given - Labs Labs: 08/06/18 05:26 08/06/18 05:26 PT 17.2 SECONDS (9.7-12.2) H 08/04/18 09:46 INR 1.6 08/04/18 09:46 APTT 35 SECONDS (21-34) H 08/04/18 09:46
[2018-08-07] MEDS: Piperacillin/Tazobact 2.25 GM in Sodium Chloride 100 ML IVPB SCH (05:05)
--- NOTE | 2018-08-07 08:22 | PN ---
DATE: 08/06/2018 SUBJECTIVE: The patient is now afebrile. He is feeling better. His blood cultures x2 are positive for gram-positive cocci. Repeat blood cultures next day are negative, on antibiotics. AFib, decreased heart rate, to be seen by Cardiology. No fever. No chills. No shortness of breath. No nausea or vomiting. No diarrhea. PHYSICAL EXAMINATION: VITAL SIGNS: Blood pressure is 85/42, pulse 52, respiratory rate 20, and temperature 98.3. LUNGS: Clear. No rales. No rhonchi. CARDIOVASCULAR SYSTEM: S1, S2 regular. No heave. No thrill. ABDOMEN: Soft, nontender. Bowel sounds are positive. ASSESSMENT AND PLAN: 1. Gram-positive septicemia, most likely it is line related. 2. Chronic hepatitis C. 3. Polysubstance abuse. 4. End-stage renal disease, on hemodialysis with a history of nephrolithiasis, status post bilateral nephrectomy. PLAN: Continue antibiotics. Infectious disease followup. Cardiology followup. Monitor the patient. Mikel Marc MD
[2018-08-07 08:38] VITALS: RESP 20; O2SAT 97
--- NOTE | 2018-08-07 08:46 | CP.PCM.PN ---
Subjective - Date & Time of Evaluation Date of Evaluation: 08/07/18 Time of Evaluation: 08:40 - Subjective Subjective: afebrile today bp around 100systolic cbc chems noted up in bed eating breakfast comfortable ROS no dizziness no chest pain palpitations no sob cough no abdomenal pain N,V<D anuric Objective - Vital Signs/Intake and Output Vital Signs (last 24 hours): Temp Pulse Resp BP Pulse Ox 98.7 F 107 H 20 102/35 L 97 08/07/18 07:45 08/07/18 07:45 08/07/18 07:45 08/07/18 07:45 08/07/18 07:45 Intake and Output: 08/07/18 08/07/18 06:59 18:59 Intake Total 200 Balance 200 - Medications Medications: Current Medications Aspirin (Aspirin Chewable) 81 mg PO DAILY [facility] Last Admin: 08/06/18 14:10 Dose: 81 mg Famotidine (Pepcid) 20 mg PO DAILY [facility] Piperacillin Sod/Tazobactam (Sod 2.25 gm/ Sodium Chloride) 100 mls @ 200 mls/hr IVPB Q8H [facility]; Protocol Last Admin: 08/07/18 05:05 Dose: 200 mls/hr Heparin Sodium/Sodium Chloride (Heparin 23225 Units/250ml 1/2 Normal Saline) 25,000 units in 250 mls @ 0 mls/hr IV .Q0M PRN; Protocol PRN Reason: PROTOCOL Vancomycin HCl 1 gm/ Sodium (Chloride) 250 mls @ 167 mls/hr IVPB [facility]; Protocol Stop: 08/20/18 10:30 Midodrine (Proamatine) 5 mg PO TID [facility] Last Admin: 08/06/18 18:24 Dose: 5 mg Oxycodone/Acetaminophen (Percocet 5/325 Mg Tab) 2 tab PO Q6H PRN PRN Reason: Pain, moderate (4-7) Stop: 08/07/18 16:09 Last Admin: 08/07/18 00:14 Dose: 2 tab Prochlorperazine (Compazine Tab) 5 mg PO TID [facility] Last Admin: 08/06/18 20:17 Dose: 5 mg Rosuvastatin Calcium (Crestor) [address] [facility] Last Admin: 08/06/18 21:13 Dose: Not Given - Labs Labs: 08/06/18 05:26 08/06/18 05:26 PT 17.2 SECONDS (9.7-12.2) H 08/04/18 09:46 INR 1.6 08/04/18 09:46 APTT 35 SECONDS (21-34) H 08/04/18 09:46 - Constitutional Appears: No Acute Distress - Eye Exam Eye Exam: Normal appearance - ENT Exam ENT Exam: Mucous Membranes Moist - Respiratory Exam Respiratory Exam: Clear to Ausculation Bilateral, NORMAL BREATHING PATTERN - Cardiovascular Exam Cardiovascular Exam: Tachycardia, Irregular Rhythm - GI/Abdominal Exam GI & Abdominal Exam: Distended, Soft, Tenderness Additional comments: dull distended tender lower quads? hypo sounds - Extremities Exam Extremities Exam: absent: Calf Tenderness Additional comments: 2-3+ legg edema no pre sacral edema - Back Exam Back Exam: absent: CVA tenderness (L), CVA tenderness (R) - Neurological Exam Neurological Exam: Alert, Awake - Psychiatric Exam Psychiatric exam: Depressed - Skin Skin Exam: Dry Assessment and Plan (1) Aortic valve endocarditis Status: Acute (2) Atrial fibrillation with rapid ventricular response Status: Acute (3) ESRD on dialysis Status: Acute (4) Gram-positive bacteremia Status: Acute - Assessment and Plan (Free Text) Plan: schedule dialysis 08/08 with ultrafiltration orders written await further treatment and evaluation
[2018-08-07 11:41] VITALS: BP 99/38; PULSE 80; TEMP 98.2
--- NOTE | 2018-08-07 12:20 | CARD ---
APPROVED REPORT Date of service: 08/04/2018 EKG Measurement Heart [id number] <Conclusion> Atrial fibrillation with rapid ventricular response Nonspecific ST abnormality Abnormal ECG
--- NOTE | 2018-08-07 12:20 | CARD ---
APPROVED REPORT Date of service: 08/04/2018 EKG Measurement Heart [id number] <Conclusion> Atrial fibrillation with rapid ventricular response Marked ST abnormality, possible lateral subendocardial injury Abnormal ECG
--- NOTE | 2018-08-07 14:24 | CP.PCM.PN ---
Subjective - Date & Time of Evaluation Date of Evaluation: 08/07/18 Time of Evaluation: 08:00 - Subjective Subjective: Patient is oriented to person, time and place. Patient states he understands he is leaving against medical advice. Patient understands the risks include infection, bleeding and . Objective - Vital Signs/Intake and Output Vital Signs (last 24 hours): Temp Pulse Resp BP Pulse Ox 98.2 F 80 20 99/38 L 97 08/07/18 11:37 08/07/18 11:37 08/07/18 11:37 08/07/18 11:37 08/07/18 11:37 Intake and Output: 08/07/18 08/07/18 06:59 18:59 Intake Total 200 310 Balance 200 310 - Medications Medications: Current Medications Aspirin (Aspirin Chewable) 81 mg PO DAILY [facility] Last Admin: 08/07/18 11:31 Dose: 81 mg Famotidine (Pepcid) 20 mg PO DAILY [facility] Last Admin: 08/07/18 11:26 Dose: 20 mg Piperacillin Sod/Tazobactam (Sod 2.25 gm/ Sodium Chloride) 100 mls @ 200 mls/hr IVPB Q8H [facility]; Protocol Last Admin: 08/07/18 05:05 Dose: 200 mls/hr Heparin Sodium/Sodium Chloride (Heparin 97261 Units/250ml 1/2 Normal Saline) 25,000 units in 250 mls @ 0 mls/hr IV .Q0M PRN; Protocol PRN Reason: PROTOCOL Vancomycin HCl 1 gm/ Sodium (Chloride) 250 mls @ 167 mls/hr IVPB MWF [facility]; Protocol Stop: 08/20/18 10:30 Midodrine (Proamatine) 5 mg PO TID [facility] Last Admin: 08/07/18 11:27 Dose: 5 mg Oxycodone/Acetaminophen (Percocet 5/325 Mg Tab) 2 tab PO Q6H PRN PRN Reason: Pain, moderate (4-7) Stop: 08/07/18 16:09 Last Admin: 08/07/18 00:14 Dose: 2 tab Prochlorperazine (Compazine Tab) 5 mg PO TID [facility] Last Admin: 08/07/18 11:27 Dose: 5 mg Rosuvastatin Calcium (Crestor) 5 mg PO [facility] Last Admin: 08/06/18 21:13 Dose: Not Given - Labs Labs: 08/06/18 05:26 08/06/18 05:26 PT 17.2 SECONDS (9.7-12.2) H 08/04/18 09:46 INR 1.6 08/04/18 09:46 APTT 35 SECONDS (21-34) H 08/04/18 09:46
--- NOTE | 2018-08-07 18:16 | PN ---
DATE: 08/07/2018 SUBJECTIVE: The patient is comfortable, still experiencing significant leg swelling. He denies any palpitation or chest pain. PHYSICAL EXAMINATION: VITAL SIGNS: Blood pressure 99/38, heart rate 80, temperature 98.2, respiration 20. HEENT: Pale conjunctivae. CHEST: Absent breath sounds at the bases. HEART: S1 and S2, regular. ABDOMEN: Soft. EXTREMITIES: 2+ pitting edema. LABORATORY DATA: Today's BUN and creatinine are 46 and 5.4 respectively. Venous Doppler of lower extremity performed, however, the report is still pending. ASSESSMENT: 1. New onset atrial fibrillation. 2. Borderline troponin elevation. 3. Aortic valve endocarditis with residual severe aortic insufficiency. 4. History of hepatitic C. 5. End-stage renal disease, on hemodialysis. RECOMMENDATIONS: Continue aspirin 81 mg once a day, Crestor at 5 mg once a day, Zosyn at 2.25 g every 8 hours, vancomycin 1 g intravenous on Monday, Monday and Monday. We will follow both echocardiographic study and venous Doppler of the lower extremity reports. Mc Miner MD
--- NOTE | 2018-08-07 20:36 | CARD ---
APPROVED REPORT Date of service: 08/07/2018 EXAM: Two-dimensional and M-mode echocardiogram with Doppler and color Doppler. INDICATION H/O ACTIVE IV HEROIN, BCX, (+)GPC 2D DIMENSIONS IVSd1.2 (0.7-1.1cm)LVDd6.6 (3.9-5.9cm) PWd1.2 (0.7-1.1cm)LA Diuaco116 (18-58mL) LVDs4.8 (2.5-4.0cm)FS (%) 27.6 % LVEF (%)52.5 (>50%)LVEF (Grey's)50.77 % IVC0.00 cm M-Mode DIMENSIONS RVDd3.32 (2.1-3.2cm)Left Atrium (MM)6.17 (2.5-4.0cm) IVSd1.56 (0.7-1.1cm)Aortic Root2.73 (2.2-3.7cm) LVDd6.44 (4.0-5.6cm)Aortic Cusp Exc.1.95 (1.5-2.0cm) PWd1.41 (0.7-1.1cm)FS (%) 31 % LVDs4.45 (2.0-3.8cm)TAPSE19.91 cm LVEF (%)57 (>50%) Aortic Valve AoV Peak Aciacaym508.3cm/sAoV VTI53.3cmAO Peak GR.32mmHg LVOT Peak Jeynuhws510.3cm/sLVOT VTI31.26cmAO Mean GR.19mmHg AI P 1/2 [id number] Mitral Valve MV E Eeyqmaer854.5cm/sMV A Jcmfkdxc782.5cm/sE/A ratio1.3 EFED628.87 cm/s TDI Lateral E' Peak V15.26cm/sMedial E' Peak V9.26cm/sE/Lateral E'11.8 E/Medial E'19.5 Tricuspid Valve TR Peak [id number]/sTR Peak Gr.[id number] LEFT VENTRICLE The Left Ventricle is moderately dilated. There is mild concentric left ventricular hypertrophy. The Ejection Fraction is 55-60%. There is normal LV segmental wall motion. Transmitral Doppler flow pattern is Grade II-pseudonormal filling dynamics. moderately elevated la volume index.54 mm. RIGHT VENTRICLE The right ventricle is normal size. The right ventricular systolic function is normal. ATRIA The left atrium is severely dilated. The right atrium size is normal. The interatrial septum is intact with no evidence for an atrial septal defect. AORTIC VALVE The aortic valve is severely calcified.underlying vegitations can not be r/o. The aortic valve is trileaflet. There is moderate aortic regurgitation. peak/mean avg of 32/19 mm of hg.visually there is no significant as. MITRAL VALVE The mitral valve is moderately thickened. Mitral annular calcification is moderate. Mitral regurgitation is moderate to severe. TRICUSPID VALVE The tricuspid valve is normal in structure. There is severe tricuspid regurgitation. Right ventricular systolic pressure is estimated at 75 mmHg. There is severe pulmonary hypertension. PULMONIC VALVE The pulmonary valve is normal in structure. There is mild pulmonic valvular regurgitation. GREAT VESSELS The aortic root is normal in size. Dilated IVC with poor inspiration collapse is consistent with elevated right atrial pressure. PERICARDIAL EFFUSION small posterior pericrdial effusion noted. <Conclusion> The Left Ventricle is moderately dilated. There is mild concentric left ventricular hypertrophy. The Ejection Fraction is 55-60%. Transmitral Doppler flow pattern is Grade II-pseudonormal filling dynamics. moderately elevated la volume index.54 mm. The left atrium is severely dilated. There is moderate aortic regurgitation. The aortic valve is severely calcified.underlying vegitations can not be r/o. The aortic valve is trileaflet. peak/mean avg of 32/19 mm of hg.visually there is no significant as. The mitral valve is moderately thickened. Mitral annular calcification is moderate. Mitral regurgitation is moderate to severe. There is severe tricuspid regurgitation. Right ventricular systolic pressure is estimated at 75 mmHg. There is severe pulmonary hypertension. Dilated IVC with poor inspiration collapse is consistent with elevated right atrial pressure. small posterior pericrdial effusion noted.
--- NOTE | 2018-08-07 21:01 | CP.PCM.DIS ---
Provider - Provider Date of Admission: 08/04/18 14:30 Attending physician: Mikel Marc MD Consults: 08/04/18 15:41 Cardiology Consult Routine Comment: Consulting Provider: Mc Miner Consulting Physician: Mc Miner Reason for Consult: ami Nephrology Consult Routine Comment: Consulting Provider: Dontrell Liang Consulting Physician: Dontrell Liang Reason for Consult: esrd 08/04/18 15:42 Infectious Disease Consult Routine Comment: Consulting Provider: Melva Florez Consulting Physician: Melva Florez Reason for Consult: sepsis Time Spent in preparation of Discharge (in minutes): 30 Hospital Course - Lab Results Lab Results: Micro Results 08/05/18 10:21 Blood-Venous Blood Culture - Preliminary NO GROWTH AFTER 48 HOURS 08/05/18 10:21 Blood-Venous Blood Culture - Preliminary NO GROWTH AFTER 48 HOURS 08/04/18 12:50 Blood S.aureus & Coag-Neg Staph PNA FISH - Final 08/04/18 12:50 Blood Blood Culture - Final Streptococcus Mitis 08/04/18 12:50 Blood Gram Stain - Final 08/04/18 17:37 Naris MRSA Culture (Admit) - Final MRSA NOT DETECTED 08/04/18 13:20 Blood Blood Culture - Preliminary Gram Positive Cocci 08/04/18 13:20 Blood Gram Stain - Final Most Recent Lab Values WBC 8.6 K/uL (4.8-10.8) 08/06/18 05:26 RBC 2.84 Mil/uL (4.40-5.90) L 08/06/18 05:26 Hgb 8.8 g/dL (12.0-18.0) L 08/06/18 05:26 Hct 27.0 % (35.0-51.0) L 08/06/18 05:26 MCV 94.8 fL (80.0-94.0) H 08/06/18 05:26 MCH 31.0 pg (27.0-31.0) 08/06/18 05:26 MCHC 32.7 g/dL (33.0-37.0) L 08/06/18 05:26 RDW 18.5 % (11.5-14.5) H 08/06/18 05:26 Plt Count 100 K/uL (130-400) L 08/06/18 05:26 MPV 9.8 fL (7.2-11.7) 08/06/18 05:26 Neut % (Auto) 77.1 % (50.0-75.0) H 08/06/18 05:26 Lymph % (Auto) 15.8 % (20.0-40.0) L 08/06/18 05:26 [place] % (Auto) 5.6 % (0.0-10.0) 08/06/18 05:26 Eos % (Auto) 1.2 % (0.0-4.0) 08/06/18 05:26 Baso % (Auto) 0.3 % (0.0-2.0) 08/06/18 05:26 Neut # (Auto) 6.7 K/uL (1.8-7.0) 08/06/18 05:26 Lymph # (Auto) 1.4 K/uL (1.0-4.3) 08/06/18 05:26 [place] # (Auto) 0.5 K/uL (0.0-0.8) 08/06/18 05:26 Eos # (Auto) 0.1 K/uL (0.0-0.7) 08/06/18 05:26 Baso # (Auto) 0.0 K/uL (0.0-0.2) 08/06/18 05:26 Neutrophils % (Manual) 91 % (50-75) H 08/04/18 09:46 Band Neutrophils % 4 % (0-2) H 08/04/18 09:46 Lymphocytes % (Manual) 3 % (20-40) L 08/04/18 09:46 Monocytes % (Manual) 2 % (0-10) 08/04/18 09:46 Toxic Granulation Present 08/04/18 09:46 Platelet Estimate Slightly decreased (NORMAL) L 08/04/18 09:46 Large Platelets Present 08/04/18 09:46 Giant Platelets Present 08/04/18 09:46 Polychromasia Slight 08/04/18 09:46 Hypochromasia (manual) Slight 08/04/18 09:46 Poikilocytosis (manual Slight 08/04/18 09:46 Anisocytosis (manual) Moderate 08/04/18 09:46 Macrocytosis (manual) Slight 08/04/18 09:46 Ovalocytes Slight 08/04/18 09:46 ESR 28 mm/hr (0-15) H 08/06/18 05:26 PT 17.2 SECONDS (9.7-12.2) H 08/04/18 09:46 INR 1.6 08/04/18 09:46 APTT 35 SECONDS (21-34) H 08/04/18 09:46 pO2 14 mm/Hg (30-55) L 08/04/18 12:18 VBG pH 7.42 (7.32-7.43) 08/04/18 12:18 VBG pCO2 51 mmHg (40-60) 08/04/18 12:18 VBG HCO3 28.4 mmol/L 08/04/18 12:18 VBG Total CO2 34.7 mmol/L (22-28) H 08/04/18 12:18 VBG O2 Sat (Calc) 13.2 % (40-65) L 08/04/18 12:18 VBG Base Excess 7.2 mmol/L (0.0-2.0) H 08/04/18 12:18 VBG Potassium 3.9 mmol/L (3.6-5.2) 08/04/18 12:18 Sodium 136.0 mmol/l (132-148) 08/04/18 12:18 Chloride 98.0 mmol/L (98-107) 08/04/18 12:18 Glucose 81 mg/dl (75-110) 08/04/18 12:18 Lactate 2.6 mmol/L (0.7-2.1) H 08/04/18 12:18 Sodium 132 mmol/L (132-148) 08/06/18 05:26 Potassium 4.2 mmol/L (3.6-5.2) 08/06/18 05:26 Chloride 94 mmol/L (98-107) L 08/06/18 05:26 Carbon Dioxide 27 mmol/L (22-30) 08/06/18 05:26 Anion Gap 16 (10-20) 08/06/18 05:26 BUN 46 mg/dL (9-20) H 08/06/18 05:26 Creatinine 5.4 mg/dL (0.8-1.5) H 08/06/18 05:26 Est GFR ( Amer) 14 08/06/18 05:26 Est GFR (Non-Af Amer) 11 08/06/18 05:26 Random Glucose 95 mg/dL (75-110) 08/06/18 05:26 Lactic Acid 2.3 mmol/L (0.7-2.1) H 08/04/18 21:32 Calcium 8.7 mg/dl (8.6-10.4) 08/06/18 05:26 Phosphorus 3.4 mg/dL (2.5-4.5) 08/06/18 05:26 Magnesium 1.8 mg/dL (1.6-2.3) 08/06/18 05:26 Total Bilirubin 0.9 mg/dL (0.2-1.3) 08/06/18 05:26 AST 25 U/L (17-59) 08/06/18 05:26 ALT 22 U/L (21-72) 08/06/18 05:26 Alkaline Phosphatase 194 U/L (38-126) H 08/06/18 05:26 Total Creatine Kinase 56 U/L (55-170) 08/04/18 23:42 CK-MB (Mass) 7.20 ng/mL (0.0-3.38) H 08/04/18 23:42 Troponin I 2.0200 ng/mL (0.00-0.120) H* 08/04/18 23:42 C-React Prot High Sens > 15.00 mg/L (1.00-3.00) H 08/06/18 05:26 Total Protein 6.2 g/dL (6.3-8.3) L 08/06/18 05:26 Albumin 3.1 g/dL (3.5-5.0) L 08/06/18 05:26 Globulin 3.1 gm/dL (2.2-3.9) 08/06/18 05:26 Albumin/Globulin Ratio 1.0 (1.0-2.1) 08/06/18 05:26 Venous Blood Potassium 3.9 mmol/L (3.6-5.2) 08/04/18 12:18 Amikacin 14.3 mg/L (see note) 08/05/18 10:02 Random Vancomycin 18.8 ug/mL 08/06/18 05:26 Influenza Typ A,B (EIA) Negative for flu a/b (NEGATIVE) 08/04/18 13:00 Discharge Exam - Head Exam Head Exam: ATRAUMATIC, NORMAL INSPECTION Discharge Plan - Follow Up Plan Condition: SERIOUS Disposition: AGAINST MEDICAL ADVICE
--- NOTE | 2018-08-08 03:03 | DS ---
DATE: 08/07/2018 DISCHARGE DIAGNOSES: 1. Septicemia. 2. Atrial fibrillation. 3. Chronic kidney disease. 4. Hepatitis C. 5. Polysubstance abuse. HISTORY OF PRESENT ILLNESS: This is a 48-year-old male with history of polysubstance abuse, hepatitis C, end-stage renal disease, on hemodialysis 3 times a week. His end-stage renal disease is a result of his kidney failure due to bilateral nephrolithiasis. The patient was admitted. The patient was septic, hypotensive. He had gram-positive cocci in the blood. He was admitted to ICU, started on antibiotics. The patient started improving. While treatment was in progress, he signed out against medical advice. CONDITION UPON DISCHARGE: The patient's condition was guarded upon discharge. Mikel Marc MD
== END 2018-08-07 14:25 | disposition left against medical advice (07) | DRG 584 ==
LOC: C.ER 08:57 → C.9E 14:30 → C.9I 14:40
PROVIDERS: ADMIT Internal Medicine; ATTEND Internal Medicine
PROC: 5A1D70Z Performance of Urinary Filtration, Intermittent, Less than 6 Hours Per Day (ICD-10-PCS; principal; 2018-08-05)
PROC: 5A1D70Z Performance of Urinary Filtration, Intermittent, Less than 6 Hours Per Day (ICD-10-PCS; 2018-08-06)
DX: A41.89 Other specified sepsis (principal); I33.0 Acute and subacute infective endocarditis; I50.22 Chronic systolic (congestive) heart failure; R65.21 Severe sepsis with septic shock; I08.3 Combined rheumatic disorders of mitral, aortic and tricuspid valves; I13.2 Hypertensive heart and chronic kidney disease with heart failure and with stage 5 chronic kidney disease, or end stage renal disease; N18.6 End stage renal disease; F11.20 Opioid dependence, uncomplicated; D64.9 Anemia, unspecified; B18.2 Chronic viral hepatitis C; I24.9 Acute ischemic heart disease, unspecified; I48.1 Persistent atrial fibrillation; I47.1 Supraventricular tachycardia; F32.9 Major depressive disorder, single episode, unspecified; R06.6 Hiccough; I27.20 Pulmonary hypertension, unspecified; I25.10 Atherosclerotic heart disease of native coronary artery without angina pectoris; G40.909 Epilepsy, unspecified, not intractable, without status epilepticus; F17.210 Nicotine dependence, cigarettes, uncomplicated; Z86.711 Personal history of pulmonary embolism; Z87.440 Personal history of urinary (tract) infections; Z87.442 Personal history of urinary calculi; Z90.5 Acquired absence of kidney; Z99.2 Dependence on renal dialysis; Z91.19 Patient's noncompliance with other medical treatment and regimen